=== PATIENT | female | born 1970 | race Native Hawaiian/Other Pacific Islander ===

== ENCOUNTER → 2020-10-10 14:27 | Outpatient (BNVA) | payer MEDICAID, SELFPAY | PROVIDERS: PCP Internal Medicine Geriatric Medicine; Referring Provider Internal Medicine Geriatric Medicine; Visit Provider Hospitalist | DX: Z76.89 Persons encountering health services in other specified circumstances (principal) ==

== ENCOUNTER → 2020-11-14 13:31 | Outpatient (BNVA) | payer MEDICAID, SELFPAY | PROVIDERS: PCP Internal Medicine Geriatric Medicine; Visit Provider Hospitalist | DX: U07.1 COVID-19 (principal); J18.9 Pneumonia, unspecified organism; J45.909 Unspecified asthma, uncomplicated; J39.8 Other specified diseases of upper respiratory tract; J98.09 Other diseases of bronchus, not elsewhere classified | CPT/HCPCS: 99212 ==

== ENCOUNTER → 2020-12-05 12:55 | Outpatient (BNVA) | payer MEDICAID, SELFPAY | PROVIDERS: PCP Internal Medicine Geriatric Medicine; Referring Provider Internal Medicine Geriatric Medicine; Visit Provider Student in an Organized Health Care Education/Training Program | DX: M35.01 Sjogren syndrome with keratoconjunctivitis (principal) | CPT/HCPCS: 99212 ==

== ENCOUNTER 2020-12-06 10:01 | Day surgery (SDC) | payer MEDICAID, SELFPAY ==
[2020-11-30 14:49] VITALS: BMI 28.3
--- NOTE | 2020-12-05 11:57 | HO.ANESPROP2 ---
Documented by User: Elza Ramos 12/05/20 12:03 HPI - Anesthesia Eval Consult details Narrative: 50yo F for Bronchoscopy Fiberoptic 05/2020: bronch with GA Tracheobronchomalacia s/p tracheoplasty in [facility] Past Medical History Medical History Asthma COVID-19 Diabetes Lesion of bronchus Pneumonia Sjogrens syndrome Tracheobronchomalacia Family History Family History Mother Asthma Father Diabetes Surgical History Surgical History History of bronchoscopy History of endometrial ablation Hx of tubal ligation Social History Social History (Updated 12/05/20 @ 13:06 by Shannon Hernandez [facility]) Alcohol intake: never Smoking Status: Former smoker Advance Directives: No Advance Directives Information Provided: No Meds Allergies Allergy/AdvReac Type Severity Reaction Status Date / Time passion fruit [PASSION FRUIT] Allergy Severe ANAPHYLAXIS Verified 12/05/20 13:01 Penicillins [PCN] Allergy Severe ANAPHYLAXIS Verified 12/05/20 13:01 shellfish derived Allergy Severe MOUTH Verified 12/05/20 13:01 [SHELLFISH DERIVED] SWELLING, ITCHY acetaminophen [From TYLENOL] Allergy Mild UNKNOWN Verified 12/05/20 13:01 ibuprofen [IBUPROFEN] Allergy Mild HX ULCERS Verified 12/05/20 13:01 TOLD NOT TO TAKE iodine [IODINE] Allergy Mild ITCHY Verified 12/05/20 13:01 latex [LATEX] Allergy Mild RASH Verified 12/05/20 13:01 lisinopril AdvReac Unknown Unknown Verified 12/06/20 10:24 metformin AdvReac Unknown Unknown Verified 12/06/20 10:24 Home Medications Medication Instructions Recorded Confirmed Type albuterol sulfate 90 mcg/actuation 2 puff INHALATION Q6H PRN 12/05/20 12/05/20 History aerosol inhaler hydroxychloroquine 200 mg tablet 200 mg PO BID 12/05/20 12/05/20 History insulin glargine 100 unit/mL (3 25 unit SUBCUT QAM ml 12/05/20 12/05/20 History mL) subcutaneous pen insulin lispro 100 unit/mL 1 sliding scale dose SUBCUT 12/05/20 12/05/20 History subcutaneous cartridge USEASDIRECTD montelukast 10 mg tablet 10 mg PO DAILY 12/05/20 12/05/20 History Atarax 50 mg PRN 12/06/20 History clonazepam 12/06/20 12/06/20 History Exam Exam Date and Time: December 05, 2020 1157 Height,Weight and Vital Signs: Height 5 ft 5 in Weight 77.111 kg Pertinent Lab Results Pertinent Lab Results: Laboratory Tests 08/03/20 08/03/20 08:55 08:55 WBC 8.0 Hgb 14.1 Hct 44.6 Plt Count 223 Sodium 138 Potassium 3.6 Chloride 103 BUN 9 Creatinine 0.86 Assessment and Plan Assessment Anesthesia Assessment: Chart Reviewed Documented by User: Laura Moreno 12/06/20 10:49 [facility] Past Medical History Medical History Asthma COVID-19 Diabetes Lesion of bronchus Pneumonia Sjogrens syndrome Tracheobronchomalacia Family History Family History Mother Asthma Father Diabetes Surgical History Surgical History History of bronchoscopy History of endometrial ablation Hx of tubal ligation Social History Social History (Updated 12/05/20 @ 13:06 by Shannon Hernandez [facility]) Alcohol intake: never Smoking Status: Former smoker Advance Directives: No Advance Directives Information Provided: No Meds Allergies Allergy/AdvReac Type Severity Reaction Status Date / Time passion fruit [PASSION FRUIT] Allergy Severe ANAPHYLAXIS Verified 12/05/20 13:01 Penicillins [PCN] Allergy Severe ANAPHYLAXIS Verified 12/05/20 13:01 shellfish derived Allergy Severe MOUTH Verified 12/05/20 13:01 [SHELLFISH DERIVED] SWELLING, ITCHY acetaminophen [From TYLENOL] Allergy Mild UNKNOWN Verified 12/05/20 13:01 ibuprofen [IBUPROFEN] Allergy Mild HX ULCERS Verified 12/05/20 13:01 TOLD NOT TO TAKE iodine [IODINE] Allergy Mild ITCHY Verified 12/05/20 13:01 latex [LATEX] Allergy Mild RASH Verified 12/05/20 13:01 lisinopril AdvReac Unknown Unknown Verified 12/06/20 10:24 metformin AdvReac Unknown Unknown Verified 12/06/20 10:24 Home Medications Medication Instructions Recorded Confirmed Type albuterol sulfate 90 mcg/actuation 2 puff INHALATION Q6H PRN 12/05/20 12/05/20 History aerosol inhaler hydroxychloroquine 200 mg tablet 200 mg PO BID 12/05/20 12/05/20 History insulin glargine 100 unit/mL (3 25 unit SUBCUT QAM ml 12/05/20 12/05/20 History mL) subcutaneous pen insulin lispro 100 unit/mL 1 sliding scale dose SUBCUT 12/05/20 12/05/20 History subcutaneous cartridge USEASDIRECTD montelukast 10 mg tablet 10 mg PO DAILY 12/05/20 12/05/20 History Atarax 50 mg PRN 12/06/20 History clonazepam 12/06/20 12/06/20 History Exam Airway Mallampati Class: II TM Dist: >3cm Neck ROM: Full Heart: RRR Lungs: CTA
[2020-12-06] VITALS (7 sets, daily range): BP systolic 123–147; BP diastolic 76–97; PULSE 79–88; RESP 14–20; TEMP 36.6–36.7; O2SAT 99–100
[2020-12-06 11:06] LABS: Glucose, Whole Blood 124 mg/dL (60-115)
[2020-12-06] MEDS: Lactated Ringers 1,000 ML 50 ML IVCONT (11:08)
--- NOTE | 2020-12-06 11:09 | MHC.SHP ---
Pre-Procedural Eval Section B Chief Complaint: upper respiratory tract disease Allergies: Allergies Allergy/AdvReac Type Severity Reaction Status Date / Time passion fruit [PASSION FRUIT] Allergy Severe ANAPHYLAXIS Verified 12/05/20 13:01 Penicillins [PCN] Allergy Severe ANAPHYLAXIS Verified 12/05/20 13:01 shellfish derived Allergy Severe MOUTH Verified 12/05/20 13:01 [SHELLFISH DERIVED] SWELLING, ITCHY acetaminophen [From TYLENOL] Allergy Mild UNKNOWN Verified 12/05/20 13:01 ibuprofen [IBUPROFEN] Allergy Mild HX ULCERS Verified 12/05/20 13:01 TOLD NOT TO TAKE iodine [IODINE] Allergy Mild ITCHY Verified 12/05/20 13:01 latex [LATEX] Allergy Mild RASH Verified 12/05/20 13:01 lisinopril AdvReac Unknown Unknown Verified 12/06/20 10:24 metformin AdvReac Unknown Unknown Verified 12/06/20 10:24 Plan I have reviewed the history and physical and performed a pertinent physical examination on my patient. No changes have occurred unless specified.
--- NOTE | 2020-12-06 11:59 | HO.POSTANES ---
Post Anesthesia Evaluation Post Anesthesia Evaluation Vital Signs: Vital Signs Temp Pulse Resp BP Pulse Ox 12/06/20 11:04 98.1 F 88 16 147/97 H 100 Anesthesia: General Mental Status: Awake Pain Control: Satisfactory Nausea/Vomiting: None Hydration: Adequate Anesthesia-Related Issues: No Anes. Related Issues
[2020-12-06] MEDS: ondansetron HCL 4 MG/2 ML VIAL IVPUSH (12:16)
[2020-12-06] MEDS: oxyCODONE HCl Immed Release 5 MG TABLET PO (12:23)
--- NOTE | 2020-12-06 12:51 | PM.OP ---
Brief Operative Note Date of Service: 12/06/20 Pre-op diagnosis: endobronchial polypoid lesion Post-op diagnosis: same Procedure: Bronchoscpoy with biopsy Surgeon: Hood Edgar MD Anesthesia: GETA Estimated blood loss (mL): 3 Pathology: other (DAREK endobronchial biopsy, RUL BRUSHINGS) Condition: stable Disposition: same day
--- NOTE | 2020-12-07 20:30 | OP_ITS ---
SURGEON: Hood Edgar MD PREOPERATIVE DIAGNOSIS: Endobronchial polypoid lesion. POSTOPERATIVE DIAGNOSIS: Endobronchial polypoid lesion. PROCEDURE PERFORMED: Bronchoscopy with biopsy. ESTIMATED BLOOD LOSS: 3 mL. COMPLICATIONS: ANESTHESIA: General endotracheal anesthesia. ASSISTANTS: None. SPECIMENS: PATHOLOGY: From the left upper lobe, endobronchial biopsy; and right upper lobe brushings. DESCRIPTION OF PROCEDURE: After the patient was adequately sedated, the flexible digital bronchoscope was inserted over the ET tube to the level of the main home. The main home appeared to be well splayed without any evidence of any malacia. The airways were evaluated up to the subsegmental level. In the left upper lobe, we then found a very small polypoid-like lesion, clear in color, has not changed since it was last evaluated several months ago. Using forceps, endobronchial biopsy was done and the whole polypoid area was removed. Minimal bleeding was noted. Iced saline was used with good hemostasis. Did not require any epinephrine. The rest of the airways were normal without any other polypoid lesions on the left side. The bronchoscope was navigated to the right side, where in the right upper lobe, there appeared to be just a slight irregularity of one of the secondary carinas of the right upper lobe, almost as if the cartilage had shifted or became displaced. The area was brushed. No bleeding noted, appears to be just cartilage irregularity. Therefore, opted on not any further biopsies at this time. The bronchoscope was then removed. The total endoscopic time approximately 20 minutes. The patient tolerated the procedure well. Vital signs were stable throughout the procedure. IMPRESSION: 1. Status post endobronchial biopsy of the left upper lobe polypoid lesion. 2. Brushings of the right upper lobe area of abnormal cartilage. No evidence of any tracheobronchomalacia during this bronchoscopy, although the patient had been on positive-pressure. Hood Edgar MD MR/MODL / [id number]
== END 2020-12-06 13:15 | disposition home or self-care (01) ==
PROVIDERS: PCP Internal Medicine Geriatric Medicine; Visit Provider Hospitalist
PROC: 0BJ08ZZ Inspection of Tracheobronchial Tree, Via Natural or Artificial Opening Endoscopic (ICD-10-PCS; CPT 31622; principal; 2020-12-06 11:00)
DX: J39.8 Other specified diseases of upper respiratory tract (principal); J98.09 Other diseases of bronchus, not elsewhere classified; J45.909 Unspecified asthma, uncomplicated; M35.00 Sjogren syndrome, unspecified; E11.9 Type 2 diabetes mellitus without complications; Z87.01 Personal history of pneumonia (recurrent); Z86.16 Personal history of COVID-19; Z87.891 Personal history of nicotine dependence; Z79.4 Long term (current) use of insulin; Z79.899 Other long term (current) drug therapy; Z88.0 Allergy status to penicillin; Z91.040 Latex allergy status
CPT/HCPCS: 31625; 31623; 82947; 87071; 87102; 87116; 87205; 88112; 88305; J0171; J1100; J2250; J2405; J3010

== ENCOUNTER 2020-12-18 09:16 | Outpatient (REF) | payer MEDICAID, SELFPAY ==
--- NOTE | 2020-12-18 09:51 | XR_ITS ---
EXAMINATION: XR CHEST CLINICAL INFORMATION: Asthma COMPARISON: Previous chest x-ray November 2019 TECHNIQUE: 2 views of the chest were obtained. FINDINGS: The cardiac and mediastinal contours are normal. The lungs are clear. There is no pleural effusion or pneumothorax. There is an old right lateral fourth rib fracture. Bony structures are otherwise unremarkable. XR/XR chest 2V IMPRESSION: No evidence for acute disease in the chest.
[2020-12-18 10:06] LABS: MANUAL DIFF FLAG NO
[2020-12-18 10:14] LABS: Glucose Urine UA >=1000 MG/DL (NEG); Leukocyte Esterase Urine NEG (NEG); Nitrite Urine NEG (NEG); PH 5.5 (5.0-8.0); Specific Gravity - Urine >= 1.030 (1.005-1.025); Urine Blood NEG (NEG); Urine Ketones NEG (NEG); Urine Protein NEG (NEG-TRACE)
[2020-12-18 10:15] LABS: Appearance Urine CLEAR; Color Urine YELLOW
[2020-12-18 10:16] LABS: Basophils Absolute Auto 0.1 X10*3/uL (0.0-0.2); Basophils Percent Auto 0.5 % (0-2); Eosinophils Absolute Auto 0.1 X10*3/uL (0.0-0.4); Eosinophils Percent Auto 1.2 % (0-4); Hematocrit 43.6 % (37-47); Hemoglobin 13.2 g/dl (12.0-16.0); Imm Gran Abs Auto 0.06 X10*3/uL (0.00-0.03); Imm Gran Pct Auto 0.6 % (0.0-0.4); Lymphocytes Absolute Auto 4.9 X10*3/uL (1.2-4.9); Lymphocytes Percent Auto 48.4 % (20-40); Mean Corpuscular HGB Conc 30.3 g/dl (31.0-35.0); Mean Corpuscular Hemoglobin 25.1 pg (27.0-33.0); Mean Platelet Volume 10.1 fL (9.4-12.3); Monocytes Absolute Auto 0.7 X10*3/uL (0.1-1.2); Monocytes Percent Auto 6.4 % (2-11); Neutrophils Absolute Auto 4.3 X10*3/uL (2.0-8.3); Neutrophils Percent Auto 42.9 % (45-73); Platelet Count 274 X10*3/uL (160-400); Red Blood Count 5.25 X10*6/uL (4.20-5.50); Red Cell Distribution Width 13.7 % (11.0-16.0); White Blood Count 10.1 X10*3/uL (4.8-10.8)
[2020-12-18 10:20] LABS: Bacteria Urine 1+ /LPF; Calcium Oxalate Crystals Urine 2+ /LPF; Mucus Urine 1+ /LPF; RBC Urine 0 /HPF (0); Squamous Epithelial Cell Urine 3+ /LPF; WBC Urine 0-2 /HPF (0-4)
[2020-12-18 10:21] LABS: Renal w Reflex-LAB USE ONLY Order Verified
[2020-12-18 10:39] LABS: Creatinine Urine 166.99 mg/dL; Microalbum/Creatinine Ratio Ur 5.3 ug/mg cr; Protein/Creatinine Ratio, Ur 0.07 (<0.2); Total Protein Urine Random 12 mg/dL (<12)
[2020-12-18 10:42] LABS: Albumin Level 4.2 g/dL (3.5-5.0); Magnesium 2.2 mg/dL (1.6-2.6); Phosphorus 3.3 mg/dL (2.7-4.5)
[2020-12-18 10:44] LABS: Alanine Aminotransferase 43 U/L (0-31); Albumin Level 4.3 g/dL (3.5-5.0); Alkaline Phosphatase 95 U/L (39-117); Anion Gap 10 (12-20); Aspartate Amino Transferase 20 U/L (5-31); Bilirubin Total 0.9 mg/dL (0.0-1.0); Blood Urea Nitrogen 17 mg/dL (9-16); C Reactive Protein 0.45 mg/dL (< or = 0.50); Calcium 9.6 mg/dL (8.4-10.2); Carbon Dioxide 29 mmol/L (22-29); Chloride 105 mmol/L (96-108); Estimated Glomerular Filt Rate > 60; Glucose Random 114 mg/dL (60-115); Potassium 4.3 mmol/L (3.3-5.1); Sodium 140 mmol/L (135-145); Total Protein 6.7 g/dL (6.5-8.0)
[2020-12-18 10:55] LABS: Vitamin D 25-OH Total 12.3 ng/mL (>30)
[2020-12-18 11:13] LABS: Erythrocyte Sedimentation Rate 4 MM/HR (0-20)
[2020-12-18 13:21] LABS: Renal w Reflex Lab Use Only Order verified
== END 2020-12-18 09:17 | disposition home or self-care (01) ==
LOC: HO.LAB 09:16
PROVIDERS: Absent Provider Student in an Organized Health Care Education/Training Program; PCP Internal Medicine Geriatric Medicine; Referring Provider Hospitalist; Visit Provider Internal Medicine Nephrology
DX: J45.909 Unspecified asthma, uncomplicated (principal); I10 Essential (primary) hypertension; M35.01 Sjogren syndrome with keratoconjunctivitis
CPT/HCPCS: 36415; 71046; 80053; 81001; 82040; 82043; 82306; 83735; 84100; 84156; 85025; 85652; 86140

== ENCOUNTER → 2021-01-04 15:44 | Outpatient (BNVA) | payer MEDICAID, SELFPAY | PROVIDERS: PCP Internal Medicine Geriatric Medicine; Visit Provider Hospitalist ==

== ENCOUNTER → 2021-01-31 10:43 | Outpatient (BNVA) | payer MEDICAID, SELFPAY | PROVIDERS: PCP Internal Medicine Geriatric Medicine; Visit Provider Hospitalist | DX: G47.33 Obstructive sleep apnea (adult) (pediatric) (principal); J39.8 Other specified diseases of upper respiratory tract; J45.40 Moderate persistent asthma, uncomplicated; B94.8 Sequelae of other specified infectious and parasitic diseases; Z79.51 Long term (current) use of inhaled steroids | CPT/HCPCS: 99212 ==

== ENCOUNTER → 2021-03-29 15:32 | Outpatient (BNVA) | payer MEDICAID, SELFPAY | PROVIDERS: PCP Internal Medicine Geriatric Medicine; Visit Provider Hospitalist ==

== ENCOUNTER 2021-04-24 14:09 | Outpatient (REF) | payer MEDICAID, SELFPAY ==
--- NOTE | 2021-04-24 17:48 | PFT_ITS ---
FINDINGS: Forced vital capacity is slightly decreased, FEV1 and [id number] are moderately decreased. Post bronchodilator therapy, no significant improvement. Total lung capacity is moderately decreased. Diffusion capacity also moderately decreased. CONCLUSION: 1. Moderate degree of restrictive pulmonary disorder. 2. Mild obstructive airway disorder. 3. No response to bronchodilators. 4. Clinical correlation recommended. MD EDI Lang/MARIE / [id number]
== END 2021-04-24 14:10 | disposition home or self-care (01) ==
LOC: HO.RESP 14:09
PROVIDERS: PCP Internal Medicine Geriatric Medicine; Visit Provider Hospitalist
DX: J45.40 Moderate persistent asthma, uncomplicated (principal); J39.8 Other specified diseases of upper respiratory tract; R06.00 Dyspnea, unspecified; R07.1 Chest pain on breathing; B94.8 Sequelae of other specified infectious and parasitic diseases; G47.33 Obstructive sleep apnea (adult) (pediatric); J98.4 Other disorders of lung; M35.01 Sjogren syndrome with keratoconjunctivitis; J98.09 Other diseases of bronchus, not elsewhere classified
CPT/HCPCS: 94060; 94727; 94729; 99212

== ENCOUNTER 2021-05-01 14:15 | Outpatient (REF) | payer MEDICAID, SELFPAY ==
--- NOTE | ~2021-05-01 | XR_ITS ---
EXAMINATION: XR CHEST CLINICAL INFORMATION: Cough, chest pain COMPARISON: Chest radiographs 12/18/2020, 12/07/2019 TECHNIQUE: 2 views of the chest were obtained. FINDINGS: Lungs appear clear with no airspace consolidation or air bronchograms. There is no effusion. The costophrenic sulci are clear. The heart is normal in size and the vascularity is normal. The hilar and mediastinal contours and bony structures are unremarkable. XR/XR chest 2V IMPRESSION: Unremarkable examination.
[2021-05-01 15:01] LABS: MANUAL DIFF FLAG NO
[2021-05-01 15:08] LABS: Basophils Percent Auto 0.5 % (0-2); Eosinophils Absolute Auto 0.1 X10*3/uL (0.0-0.4); Eosinophils Percent Auto 1.7 % (0-4); Hemoglobin 11.9 g/dl (12.0-16.0); Imm Gran Abs Auto 0.02 X10*3/uL (0.00-0.03); Imm Gran Pct Auto 0.3 % (0.0-0.4); Lymphocytes Absolute Auto 2.9 X10*3/uL (1.2-4.9); Lymphocytes Percent Auto 49.5 % (20-40); Mean Corpuscular HGB Conc 31.3 g/dl (31.0-35.0); Mean Corpuscular Hemoglobin 24.5 pg (27.0-33.0); Mean Corpuscular Volume 78.4 fL (80-98); Mean Platelet Volume 10.5 fL (9.4-12.3); Monocytes Absolute Auto 0.5 X10*3/uL (0.1-1.2); Monocytes Percent Auto 8.1 % (2-11); Neutrophils Absolute Auto 2.4 X10*3/uL (2.0-8.3); Neutrophils Percent Auto 39.9 % (45-73); Platelet Count 235 X10*3/uL (160-400); Red Blood Count 4.85 X10*6/uL (4.20-5.50); Red Cell Distribution Width 13.2 % (11.0-16.0); White Blood Count 5.9 X10*3/uL (4.8-10.8)
[2021-05-01 15:18] LABS: D Dimer < 200 NG/ML
[2021-05-01 15:34] LABS: Anion Gap 10 (12-20); Blood Urea Nitrogen 10 mg/dL (9-16); Calcium 9.4 mg/dL (8.4-10.2); Carbon Dioxide 26 mmol/L (22-29); Chloride 108 mmol/L (96-108); Estimated Glomerular Filt Rate > 60; Glucose Random 96 mg/dL (60-115); Potassium 4.4 mmol/L (3.3-5.1); Sodium 140 mmol/L (135-145)
[2021-05-01 15:54] LABS: Erythrocyte Sedimentation Rate 7 MM/HR (0-20)
[2021-05-05 03:37] LABS: Immunoglobulin E 74 kU/L (<OR=114)
== END 2021-05-01 14:16 | disposition home or self-care (01) ==
LOC: HO.LAB 14:15
PROVIDERS: Absent Provider Internal Medicine Geriatric Medicine; PCP Internal Medicine Geriatric Medicine; Visit Provider Hospitalist
DX: R07.9 Chest pain, unspecified (principal); J18.9 Pneumonia, unspecified organism; E11.65 Type 2 diabetes mellitus with hyperglycemia; R05 Cough
CPT/HCPCS: 36415; 71046; 80048; 82785; 85025; 85379; 85652

== ENCOUNTER 2021-08-01 10:41 | Outpatient (REF) | payer MEDICAID, SELFPAY ==
--- NOTE | ~2021-08-01 | XR_ITS ---
EXAMINATION: XR CHEST CLINICAL INFORMATION: Chest pain with breathing. COMPARISON: Chest radiograph dated 05/01/2021. TECHNIQUE: 2 views of the chest were obtained. FINDINGS: The lungs are clear. The cardiomediastinal silhouette is normal in size. There is no pleural effusion or pneumothorax. No acute osseous abnormality. XR/XR chest 2V IMPRESSION: No acute cardiopulmonary findings.
== END 2021-08-01 10:42 | disposition home or self-care (01) ==
LOC: HO.XRAY 10:41
PROVIDERS: PCP Internal Medicine Geriatric Medicine; Visit Provider Hospitalist
DX: R07.1 Chest pain on breathing (principal); J05.0 Acute obstructive laryngitis [croup]
CPT/HCPCS: 71046

== ENCOUNTER → 2021-08-08 10:16 | Outpatient (BNVA) | payer MEDICAID, SELFPAY | PROVIDERS: PCP Internal Medicine Geriatric Medicine; Visit Provider Hospitalist | DX: J98.4 Other disorders of lung (principal); J98.09 Other diseases of bronchus, not elsewhere classified; J39.8 Other specified diseases of upper respiratory tract; J04.2 Acute laryngotracheitis; R07.1 Chest pain on breathing; B94.8 Sequelae of other specified infectious and parasitic diseases; G47.33 Obstructive sleep apnea (adult) (pediatric); M35.01 Sjogren syndrome with keratoconjunctivitis | CPT/HCPCS: 99212 ==

== ENCOUNTER → 2021-09-25 13:07 | Outpatient (BNVA) | payer MEDICAID, SELFPAY | PROVIDERS: PCP Internal Medicine Geriatric Medicine; Visit Provider Hospitalist | DX: J45.41 Moderate persistent asthma with (acute) exacerbation (principal); J98.4 Other disorders of lung; J39.8 Other specified diseases of upper respiratory tract; G47.33 Obstructive sleep apnea (adult) (pediatric); M35.01 Sjogren syndrome with keratoconjunctivitis; B94.8 Sequelae of other specified infectious and parasitic diseases; R07.1 Chest pain on breathing | CPT/HCPCS: 99212 ==

== ENCOUNTER 2021-10-08 13:19 | Outpatient (REF) | payer MEDICAID, SELFPAY ==
[2021-10-08 13:58] LABS: MANUAL DIFF FLAG NO
[2021-10-08 14:15] LABS: Basophils Percent Auto 0.5 % (0-2); Eosinophils Absolute Auto 0.1 X10*3/uL (0.0-0.4); Eosinophils Percent Auto 1.4 % (0-4); Hematocrit 43.7 % (37.0-47.0); Hemoglobin 13.5 g/dl (12.0-16.0); Imm Gran Abs Auto 0.02 X10*3/uL (0.00-0.03); Imm Gran Pct Auto 0.3 % (0.0-0.4); Lymphocytes Absolute Auto 2.2 X10*3/uL (1.2-4.9); Lymphocytes Percent Auto 28.6 % (20-40); Mean Corpuscular HGB Conc 30.9 g/dl (31.0-35.0); Mean Corpuscular Volume 81.1 fL (80.0-98.0); Mean Platelet Volume 11.4 fL (9.4-12.3); Monocytes Absolute Auto 0.5 X10*3/uL (0.1-1.2); Monocytes Percent Auto 6.7 % (2-11); Neutrophils Absolute Auto 4.8 x10*3/uL (2.0-8.3); Neutrophils Percent Auto 62.5 % (45-73); Platelet Count 204 X10*3/uL (160-400); Red Blood Count 5.39 X10*6/uL (4.20-5.50); Red Cell Distribution Width 12.6 % (11.0-16.0); White Blood Count 7.7 X10*3/uL (4.8-10.8)
[2021-10-08 14:54] LABS: Erythrocyte Sedimentation Rate 5 MM/HR (0-20)
[2021-10-14 17:06] LABS: Asperg fumigatus Precip Abs NEGATIVE (NEGATIVE); Micropoly faeni Abs NEGATIVE (NEGATIVE); Pigeon serum Abs NEGATIVE (NEGATIVE); Saccharo pora viridis Abs NEGATIVE (NEGATIVE); Thermo candidus Abs NEGATIVE (NEGATIVE); Thermoa vulgaris #1 NEGATIVE (NEGATIVE)
== END 2021-10-08 13:20 | disposition home or self-care (01) ==
LOC: HO.LAB 13:19
PROVIDERS: PCP Internal Medicine Geriatric Medicine; Visit Provider Hospitalist
DX: J45.41 Moderate persistent asthma with (acute) exacerbation (principal); R91.8 Other nonspecific abnormal finding of lung field
CPT/HCPCS: 36415; 82785; 85025; 85652; 86003; 86331; 86606; 86609

== ENCOUNTER → 2021-11-21 10:56 | Outpatient (BNVA) | payer MEDICAID, SELFPAY | PROVIDERS: PCP Internal Medicine Geriatric Medicine; Visit Provider Hospitalist | DX: J45.50 Severe persistent asthma, uncomplicated (principal); J98.4 Other disorders of lung; G47.33 Obstructive sleep apnea (adult) (pediatric); J39.8 Other specified diseases of upper respiratory tract; S22.39XD Fracture of one rib, unspecified side, subsequent encounter for fracture with routine healing; R07.1 Chest pain on breathing; M35.01 Sjogren syndrome with keratoconjunctivitis; B94.8 Sequelae of other specified infectious and parasitic diseases | CPT/HCPCS: 99212 ==

== ENCOUNTER 2021-11-29 09:54 | Outpatient (REF) | payer MEDICAID, SELFPAY ==
--- NOTE | ~2021-11-29 | XR_ITS ---
EXAMINATION: XR CHEST CLINICAL INFORMATION: Chest pain on breathing COMPARISON: None TECHNIQUE: 2 views of the chest were obtained. FINDINGS: No significant abnormality is noted involving the heart, lungs, mediastinum, bony thorax or soft tissues. XR/XR chest 2V IMPRESSION: Unremarkable chest examination.
[2021-11-29 10:12] LABS: MANUAL DIFF FLAG NO
[2021-11-29 11:25] LABS: Basophils Absolute Auto 0.1 X10*3/uL (0.0-0.2); Basophils Percent Auto 0.7 % (0-2); Eosinophils Absolute Auto 0.2 X10*3/uL (0.0-0.4); Eosinophils Percent Auto 3.1 % (0-4); Hemoglobin 12.7 g/dl (12.0-16.0); Imm Gran Abs Auto 0.01 X10*3/uL (0.00-0.03); Imm Gran Pct Auto 0.1 % (0.0-0.4); Lymphocytes Absolute Auto 3.3 X10*3/uL (1.2-4.9); Lymphocytes Percent Auto 47.3 % (20-40); Mean Corpuscular Hemoglobin 25.1 pg (27.0-33.0); Mean Platelet Volume 11.4 fL (9.4-12.3); Monocytes Absolute Auto 0.4 X10*3/uL (0.1-1.2); Monocytes Percent Auto 6.4 % (2-11); Neutrophils Absolute Auto 2.9 x10*3/uL (2.0-8.3); Neutrophils Percent Auto 42.4 % (45-73); Platelet Count 233 X10*3/uL (160-400); Red Blood Count 5.06 X10*6/uL (4.20-5.50); Red Cell Distribution Width 12.5 % (11.0-16.0); White Blood Count 6.9 X10*3/uL (4.8-10.8)
[2021-11-29 11:35] LABS: D Dimer High Sensitivity < 150 NG/ML
[2021-11-29 11:44] LABS: Troponin-I High Sensitivity 3.6 ng/L (<3.5-17.0)
[2021-11-29 11:51] LABS: Anion Gap 13 (12-20); Blood Urea Nitrogen 13 mg/dL (9-16); Calcium 9.6 mg/dL (8.4-10.2); Carbon Dioxide 24 mmol/L (22-29); Chloride 105 mmol/L (96-108); Estimated Glomerular Filt Rate > 60; Glucose Random 213 mg/dL (60-115); Potassium 4.3 mmol/L (3.3-5.1); Sodium 138 mmol/L (135-145)
[2021-11-29 12:15] LABS: Erythrocyte Sedimentation Rate 5 MM/HR (0-20)
[2021-12-01 02:57] LABS: Immunoglobulin E 172 kU/L (<OR=114)
== END 2021-11-29 09:55 | disposition home or self-care (01) ==
LOC: HO.XRAY 09:54
PROVIDERS: PCP Internal Medicine Geriatric Medicine; Visit Provider Hospitalist
DX: R07.1 Chest pain on breathing (principal)
CPT/HCPCS: 36415; 71046; 80048; 82785; 84484; 85025; 85379; 85652

== ENCOUNTER → 2021-12-14 13:48 | Outpatient (BNVA) | payer MEDICAID, SELFPAY | PROVIDERS: PCP Internal Medicine Geriatric Medicine; Visit Provider Hospitalist | DX: J45.50 Severe persistent asthma, uncomplicated (principal); J98.4 Other disorders of lung; J39.8 Other specified diseases of upper respiratory tract; R07.1 Chest pain on breathing; G47.33 Obstructive sleep apnea (adult) (pediatric); M35.01 Sjogren syndrome with keratoconjunctivitis; B94.8 Sequelae of other specified infectious and parasitic diseases; S22.39XD Fracture of one rib, unspecified side, subsequent encounter for fracture with routine healing | CPT/HCPCS: 99212 ==

== ENCOUNTER 2021-12-25 13:20 | Outpatient (REF) | payer MEDICAID, SELFPAY ==
[2021-12-26 08:13] LABS: Glucose, Whole Blood 201 mg/dL (60-115)
[2021-12-26 08:13] LABS: Glucose, Whole Blood 195 mg/dL (60-115)
== END 2021-12-25 13:21 | disposition home or self-care (01) ==
LOC: HO.MDS 13:20
PROVIDERS: Visit Provider Internal Medicine Pulmonary Disease
DX: J45.50 Severe persistent asthma, uncomplicated (principal)
CPT/HCPCS: 82947; 96372; J2357

== ENCOUNTER 2021-12-27 07:03 | Day surgery (SDC) | payer MEDICAID, SELFPAY ==
--- NOTE | 2021-12-26 09:15 | P.CONAN_ITS ---
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) CJ (obstructive sleep apnea) (Acute) CJ on CPAP (Acute) Sjogrens syndrome (Acute) Lesion of bronchus (Acute) Pneumonia (Acute) Asthma (Acute) Tracheobronchomalacia (Acute) COVID-19 (Acute) Past Medical History Medical History Asthma Chronic restrictive lung disease Cough COVID-19 Diabetes Lesion of bronchus CJ (obstructive sleep apnea) CJ on CPAP Pneumonia 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 Rib fracture Rib fracture Sjogrens syndrome Tracheobronchomalacia Family History Family History Mother Asthma Father Diabetes Surgical History Surgical History History of bronchoscopy History of endometrial ablation Hx of tubal ligation Social History Social History (Updated 04/24/21 @ 15:04 by EMELIA Burton) Household Members: Spouse and Children Alcohol intake: never Patient Tobacco Use Status: Former Tobacco user Tobacco use type: Cigarette Years Smoked: 2-3 yrs Second Hand Smoke Exposure: No Meds Allergies Allergy/AdvReac Type Severity Reaction Status Date / Time latex [LATEX] Allergy Severe RASH Verified 12/27/21 07:40 passion fruit [PASSION FRUIT] Allergy Severe ANAPHYLAXIS Verified 12/14/21 13:58 Penicillins [PCN] Allergy Severe ANAPHYLAXIS Verified 12/14/21 13:58 shellfish derived Allergy Severe MOUTH Verified 12/14/21 13:58 [SHELLFISH DERIVED] SWELLING, ITCHY acetaminophen [From TYLENOL] Allergy Mild UNKNOWN Verified 12/14/21 13:58 ibuprofen [IBUPROFEN] Allergy Mild HX ULCERS Verified 12/14/21 13:58 TOLD NOT TO TAKE iodine [IODINE] Allergy Mild ITCHY Verified 12/14/21 13:58 lisinopril AdvReac Severe Rash Verified 12/14/21 13:58 metformin AdvReac Severe Rash Verified 12/14/21 13:58 Home Medications Medication Instructions Recorded Confirmed Last Taken Type albuterol sulfate 90 mcg/actuation 2 puff INHALATION Q6H PRN 12/05/20 04/24/21 Unknown History aerosol inhaler hydroxychloroquine 200 mg tablet 200 mg PO BID 12/05/20 04/24/21 12/06/20 07:00 History (Plaquenil) insulin glargine 100 unit/mL (3 25 unit SUBCUT QAM ml 12/05/20 04/24/21 Unknown History mL) subcutaneous pen (Lantus Solostar U-100 Insulin) insulin lispro 100 unit/mL 1 sliding scale dose SUBCUT 12/05/20 04/24/21 Unknown History subcutaneous cartridge (Humalog USEASDIRECTD U-100 Insulin) Atarax 50 mg PRN 12/06/20 04/24/21 12/06/20 07:00 History clonazepam 12/06/20 04/24/21 12/06/20 07:00 History Exam Exam Date and Time: December 26, [id number] Pertinent Lab Results Pertinent Lab Results: Laboratory Tests 11/29/21 11/29/21 10:08 10:08 WBC 6.9 Hgb 12.7 Hct 41.0 Plt Count 233 Sodium 138 Potassium 4.3 Chloride 105 Carbon Dioxide 24 BUN 13 Creatinine 0.89 Assessment and Plan Assessment Anesthesia Assessment: Chart Reviewed Documented by User: Jono Tucker 12/27/21 15:00 [facility] Past Medical History Medical History Asthma Chronic restrictive lung disease Cough COVID-19 Diabetes Lesion of bronchus CJ (obstructive sleep apnea) CJ on CPAP Pneumonia 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 Rib fracture Rib fracture Sjogrens syndrome Tracheobronchomalacia Family History Family History Mother Asthma Father Diabetes Family history of problems with anesthesia: No Surgical History Surgical History History of bronchoscopy History of endometrial ablation Hx of tubal ligation History of Problems with Anesthesia: No Social History Social History (Updated 04/24/21 @ 15:04 by EMELIA Burton) Household Members: Spouse and Children Alcohol intake: never Patient Tobacco Use Status: Former Tobacco user Tobacco use type: Cigarette Years Smoked: 2-3 yrs Second Hand Smoke Exposure: No Meds Allergies Allergy/AdvReac Type Severity Reaction Status Date / Time latex [LATEX] Allergy Severe RASH Verified 12/27/21 07:40 passion fruit [PASSION FRUIT] Allergy Severe ANAPHYLAXIS Verified 12/14/21 13:58 Penicillins [PCN] Allergy Severe ANAPHYLAXIS Verified 12/14/21 13:58 shellfish derived Allergy Severe MOUTH Verified 12/14/21 13:58 [SHELLFISH DERIVED] SWELLING, ITCHY acetaminophen [From TYLENOL] Allergy Mild UNKNOWN Verified 12/14/21 13:58 ibuprofen [IBUPROFEN] Allergy Mild HX ULCERS Verified 12/14/21 13:58 TOLD NOT TO TAKE iodine [IODINE] Allergy Mild ITCHY Verified 12/14/21 13:58 lisinopril AdvReac Severe Rash Verified 12/14/21 13:58 metformin AdvReac Severe Rash Verified 12/14/21 13:58 Home Medications Medication Instructions Recorded Confirmed Last Taken Type albuterol sulfate 90 mcg/actuation 2 puff INHALATION Q6H PRN 12/05/20 04/24/21 Unknown History aerosol inhaler hydroxychloroquine 200 mg tablet 200 mg PO BID 12/05/20 04/24/21 12/06/20 07:00 History (Plaquenil) insulin glargine 100 unit/mL (3 25 unit SUBCUT QAM ml 12/05/20 04/24/21 Unknown History mL) subcutaneous pen (Lantus Solostar U-100 Insulin) insulin lispro 100 unit/mL 1 sliding scale dose SUBCUT 12/05/20 04/24/21 Unknown History subcutaneous cartridge (Humalog USEASDIRECTD U-100 Insulin) Atarax 50 mg PRN 12/06/20 04/24/21 12/06/20 07:00 History clonazepam 12/06/20 04/24/21 12/06/20 07:00 History Exam Airway Mallampati Class: III TM Dist: >3cm Neck ROM: Full Loose/Missing/Broken Teeth: Yes (Fillings ) Heart: rrr Lungs: bl breath sounds Assessment and Plan Assessment Anesthesia Assessment: Anesthesia Plan Discussed Final Anesthetic Review Family History of Problems with Anesthesia: No History of Problems with Anesthesia: No NPO: Yes ASA Class: III Final Preanesthetic Review: Meds/Allgs Chart Reviewed, Consent Obtained/Reviewed and Anes Risks/Benef Reviewed Patient Risk: Intermediate Procedure Risk: Intermediate Anesthetic Plan Anesthetic Plan: GA Disposition: Standard PACU
[2021-12-27] VITALS (9 sets, daily range): BP systolic 142–165; BP diastolic 90–105; PULSE 65–78; RESP 16–18; TEMP 36.1–36.5; O2SAT 98–100; BMI 31.1
[2021-12-27 07:16] LABS: Glucose, Whole Blood 94 mg/dL (60-115)
[2021-12-27] MEDS: Lactated Ringers 1,000 ML 100 ML IVCONT (07:43)
--- NOTE | 2021-12-27 08:17 | MHC.SHP ---
Pre-Procedural Eval Section A Date of Service: 12/27/21 The patient is an INPATIENT: No Changes since office visit: No Cold of Flu in the past 2 weeks, No New Medical Problems, No Changes in Medication and No Patient answered all questions The History & Physical has been completed within 30 days and I have reviewed it.: Yes Section B Chief Complaint: respiratory tract disease Allergies: Allergies Allergy/AdvReac Type Severity Reaction Status Date / Time latex [LATEX] Allergy Severe RASH Verified 12/27/21 07:40 passion fruit [PASSION FRUIT] Allergy Severe ANAPHYLAXIS Verified 12/14/21 13:58 Penicillins [PCN] Allergy Severe ANAPHYLAXIS Verified 12/14/21 13:58 shellfish derived Allergy Severe MOUTH Verified 12/14/21 13:58 [SHELLFISH DERIVED] SWELLING, ITCHY acetaminophen [From TYLENOL] Allergy Mild UNKNOWN Verified 12/14/21 13:58 ibuprofen [IBUPROFEN] Allergy Mild HX ULCERS Verified 12/14/21 13:58 TOLD NOT TO TAKE iodine [IODINE] Allergy Mild ITCHY Verified 12/14/21 13:58 lisinopril AdvReac Severe Rash Verified 12/14/21 13:58 metformin AdvReac Severe Rash Verified 12/14/21 13:58 Plan I have reviewed the history and physical and performed a pertinent physical examination on my patient. No changes have occurred unless specified.
[2021-12-27] MEDS: oxyCODONE HCl Immed Release 5 MG TABLET 10 MG PO (11:23)
--- NOTE | 2021-12-27 13:39 | PM.OP ---
Brief Operative Note Date of Service: 12/27/21 Pre-op diagnosis: TBM, asthma, chest pain Post-op diagnosis: other (endobronchial lesion, bronchitis, UDAY bronchomalecia) Procedure: Bronchoscopy with biopsies, washings and brushings Implants: Surgeon: Hood Edgar MD Anesthesia: GLMA Was an Consulting Solution Manager used for this Procedure?: No Estimated blood loss (mL): 0 Condition: stable Disposition: same day
--- NOTE | 2021-12-27 23:32 | OP_ITS ---
SURGEON: Hood Edgar MD PREOPERATIVE DIAGNOSIS: POSTOPERATIVE DIAGNOSIS: PROCEDURE PERFORMED: Bronchoscopy. ESTIMATED BLOOD LOSS: COMPLICATIONS: ANESTHESIA: LMA. ASSISTANTS: SPECIMENS: PREOPERATIVE DIAGNOSES: Tracheomalacia, bronchitis, and asthma. POSTOPERATIVE DIAGNOSES: Endobronchial lesion, bronchus intermedius, irregular appearance of the anterior segment of the right upper lobe, bronchitis, right mainstem bronchomalacia. No evidence of any tracheomalacia. ASA CLASSIFICATION: 3. DESCRIPTION OF PROCEDURE: After the patient is adequately sedated, LMA in place, the flexible digital bronchoscope was inserted to the level of the larynx. The vocal cords were initially symmetrical, but they did close symmetrically. No lesions noted. There was some slight thickening of the epiglottis, could be secondary to coughing and reflux related issues. After instilling additional lidocaine, the bronchoscope was then passed through vocal cords to the level of the trachea. The tracheal mucosa appeared normal, had some slight flattening of the anterior part of the trachea, but stayed patent even during coughing episodes. After instilling additional lidocaine, the bronchoscope was then navigated to the entire tracheobronchial tree. The patient did have some mucoid secretions primarily in the trachea and also more in the left-sided airways. In addition to that, the patient again had a very abnormal anterior segment, right upper lobe segment where the home appeared to be split. She has had this before and previous bronchoscopies. It could just be chondroma that developed in that area. In addition to that, there was a small plaque-like area that appeared to be whitish with some neovascularization primarily in the bronchus intermedius. That area became very friable just with touching it, resulting in some bleeding around it. Using forceps, endobronchial biopsy was collected from the right upper lobe anterior segment. Specimens were sent in formalin. The bronchoscope was navigated to the bronchus intermedius. Using forceps that plaque-like white mucosal area was removed and placed in formalin to be analyzed. Also to note, the polypoid lesion she had in the left upper lobe area was no longer present. The bronchoscope was navigated to the distal left mainstem bronchus. A microbiology brush was introduced both into the left upper lobe and left lower lobe and sent for microbiology. Bronchial washings were collected bilaterally. The patient again has more mucus secretions primarily from the left lung, left upper lobe primarily. Areas were washed clear and suction and specimen sent for both cytology and microbiology. Aspirate request for mycoplasma PCR was sent from the washings. The patient tolerated the procedure well. No evidence of any bleeding. Reached good hemostasis. At the end of the procedure, she was waking up and coughing. We assessed the airways. She did have some degree of central bronchomalacia of the right mainstem bronchus obstructing about 80-90%. Even the distal trachea appeared to be patent staying open more than 50% and the rest of the trachea also appeared to be patent greater than 70%. The patient tolerated the procedure well. Vital signs were stable throughout the procedure. Total endoscopic time approximately 20 minutes. INTERPRETATION: 1. No evidence of any tracheomalacia even while coughing. 2. Evidence of right mainstem bronchomalacia. 3. Endobronchial lesion of the bronchus intermedius appeared to be likely an area of metaplasia with some friability, status post endobronchial forceps biopsy and removal. 4. Endobronchial biopsy of the anterior segment of the right upper lobe where appears to have either chondroma or abnormality of the home. 5. Bronchial washings bilaterally both for cytology, microbiology including mycoplasma PCR. 6. Microscopic brushings from the left upper and left lower lung for microbiology. MD NED Patel/MARIE / [id number]
[2021-12-31 12:45] LABS: Other Ref Test - Misc SEE COMMENTS
== END 2021-12-27 12:30 | disposition home or self-care (01) ==
PROVIDERS: PCP Internal Medicine Geriatric Medicine; Visit Provider Hospitalist
PROC: 0BJ08ZZ Inspection of Tracheobronchial Tree, Via Natural or Artificial Opening Endoscopic (ICD-10-PCS; CPT 31622; principal; 2021-12-27 08:30)
DX: J39.8 Other specified diseases of upper respiratory tract (principal); J98.4 Other disorders of lung; J45.50 Severe persistent asthma, uncomplicated; R07.1 Chest pain on breathing; R53.83 Other fatigue; U09.9 Post COVID-19 condition, unspecified; B94.8 Sequelae of other specified infectious and parasitic diseases; E55.9 Vitamin D deficiency, unspecified; G47.33 Obstructive sleep apnea (adult) (pediatric); M35.01 Sjogren syndrome with keratoconjunctivitis; E11.9 Type 2 diabetes mellitus without complications; S22.39XA Fracture of one rib, unspecified side, initial encounter for closed fracture; X58.XXXA Exposure to other specified factors, initial encounter; Y93.9 Activity, unspecified; Y92.9 Unspecified place or not applicable; Y99.8 Other external cause status; Z79.4 Long term (current) use of insulin; Z79.51 Long term (current) use of inhaled steroids; Z79.899 Other long term (current) drug therapy; Z99.89 Dependence on other enabling machines and devices; Z88.0 Allergy status to penicillin; Z88.8 Allergy status to other drugs, medicaments and biological substances; Z91.040 Latex allergy status; Z87.891 Personal history of nicotine dependence
CPT/HCPCS: 31625; 31623; 82947; 87071; 87116; 87205; 87581; 88112; 88305; J0171; J1100; J2250; J2405; J3010

== ENCOUNTER → 2022-01-14 15:00 | Outpatient (BNVA) | payer MEDICAID, SELFPAY | PROVIDERS: PCP Internal Medicine Geriatric Medicine; Visit Provider Hospitalist ==

== ENCOUNTER 2022-01-29 11:17 | Outpatient (REF) | payer MEDICAID, SELFPAY | END 2022-01-29 11:18 | disposition home or self-care (01) | LOC: HO.MDS 11:17 | PROVIDERS: Visit Provider Hospitalist | DX: J45.50 Severe persistent asthma, uncomplicated (principal) | CPT/HCPCS: 96372; 99212; J2357 ==

== ENCOUNTER 2022-02-12 12:28 | Outpatient (REF) | payer MEDICAID, SELFPAY ==
--- NOTE | ~2022-02-12 | XR_ITS ---
EXAMINATION: XR TEMPOROMANDIBULAR JOINT, BILATERAL CLINICAL INFORMATION: Arthralgia of the temporomandibular joints. COMPARISON: None TECHNIQUE: 5 views of the temporomandibular joints. FINDINGS: The temporomandibular joints are normal-appearing. No fracture or dislocation or erosive changes are seen. XR/XR TMJ BI IMPRESSION: Unremarkable examination.
== END 2022-02-12 12:29 | disposition home or self-care (01) ==
LOC: HO.XRAY 12:28
PROVIDERS: PCP Internal Medicine Geriatric Medicine; Visit Provider Internal Medicine Geriatric Medicine
DX: M26.623 Arthralgia of bilateral temporomandibular joint (principal)
CPT/HCPCS: 70330

== ENCOUNTER 2022-03-14 10:39 | Outpatient (REF) | payer MEDICAID, SELFPAY | END 2022-03-14 10:40 | disposition home or self-care (01) | LOC: HO.MDS 10:39 | PROVIDERS: Visit Provider Hospitalist | DX: J45.50 Severe persistent asthma, uncomplicated (principal) | CPT/HCPCS: 96372; J2357 ==

== ENCOUNTER 2022-04-12 10:12 | Outpatient (REF) | payer MEDICAID, SELFPAY ==
--- NOTE | ~2022-04-12 | XR_ITS ---
EXAMINATION: XR CHEST CLINICAL INFORMATION: Chest pain. COMPARISON: Chest 11/29/2021 TECHNIQUE: 2 views of the chest were obtained. FINDINGS: The lungs are well-expanded and clear. The heart size and pulmonary vascularity is normal. No gross bony abnormality seen. XR/XR chest 2V IMPRESSION: Unremarkable chest examination.
== END 2022-04-12 10:13 | disposition home or self-care (01) ==
LOC: HO.XRAY 10:12
PROVIDERS: PCP Internal Medicine Geriatric Medicine; Visit Provider Hospitalist
DX: R07.9 Chest pain, unspecified (principal)
CPT/HCPCS: 71046; 96372

== ENCOUNTER 2022-04-12 14:23 | Outpatient (REF) | payer MEDICAID, SELFPAY | END 2022-04-12 14:24 | disposition home or self-care (01) | LOC: HO.MDS 14:23 | PROVIDERS: Visit Provider Hospitalist | DX: J45.50 Severe persistent asthma, uncomplicated (principal); J98.4 Other disorders of lung; R07.1 Chest pain on breathing; G47.33 Obstructive sleep apnea (adult) (pediatric); M35.00 Sjogren syndrome, unspecified; J39.8 Other specified diseases of upper respiratory tract; R13.11 Dysphagia, oral phase; J04.0 Acute laryngitis; E11.9 Type 2 diabetes mellitus without complications; Z87.891 Personal history of nicotine dependence; Z91.040 Latex allergy status; Z88.0 Allergy status to penicillin; Z91.013 Allergy to seafood; Z88.8 Allergy status to other drugs, medicaments and biological substances; Z91.018 Allergy to other foods; Z99.89 Dependence on other enabling machines and devices; Z79.899 Other long term (current) drug therapy | CPT/HCPCS: 99212; J2357 ==

== ENCOUNTER 2022-05-10 11:19 | Outpatient (REF) | payer MEDICAID, SELFPAY | END 2022-05-10 11:20 | disposition home or self-care (01) | LOC: HO.MDS 11:19 | PROVIDERS: Visit Provider Hospitalist | DX: J45.50 Severe persistent asthma, uncomplicated (principal) | CPT/HCPCS: 96372; J2357 ==

== ENCOUNTER 2022-07-02 10:45 | Outpatient (REF) | payer MEDICAID, SELFPAY | END 2022-07-02 10:46 | disposition home or self-care (01) | LOC: HO.MDS 10:45 | PROVIDERS: Visit Provider Hospitalist | DX: J45.50 Severe persistent asthma, uncomplicated (principal) | CPT/HCPCS: 96372; 99212; J2357 ==

== ENCOUNTER 2022-08-06 11:52 | Outpatient (REF) | payer MEDICAID, SELFPAY | END 2022-08-06 11:53 | disposition home or self-care (01) | LOC: HO.MDS 11:52 | PROVIDERS: Visit Provider Hospitalist | DX: J45.50 Severe persistent asthma, uncomplicated (principal) | CPT/HCPCS: 96372; J2357 ==

== ENCOUNTER 2022-09-30 12:11 | Outpatient (REF) | payer MEDICAID, SELFPAY | END 2022-09-30 12:12 | disposition home or self-care (01) | LOC: HO.MDS 12:11 | PROVIDERS: Visit Provider Hospitalist | DX: J45.50 Severe persistent asthma, uncomplicated (principal) | CPT/HCPCS: 96372; 99212; J2357 ==

== ENCOUNTER 2022-11-13 13:48 | Outpatient (REF) | payer MEDICAID, SELFPAY | END 2022-11-13 13:49 | disposition home or self-care (01) | LOC: HO.MDS 13:48 | PROVIDERS: Visit Provider Hospitalist | DX: J45.50 Severe persistent asthma, uncomplicated (principal) | CPT/HCPCS: 96372; J2357 ==

== ENCOUNTER → 2022-12-06 11:17 | Outpatient (BNVA) | payer MEDICAID, SELFPAY | PROVIDERS: PCP Internal Medicine Geriatric Medicine; Visit Provider Hospitalist | DX: J45.51 Severe persistent asthma with (acute) exacerbation (principal); J98.4 Other disorders of lung; J39.8 Other specified diseases of upper respiratory tract; R07.1 Chest pain on breathing; G47.33 Obstructive sleep apnea (adult) (pediatric); M35.01 Sjogren syndrome with keratoconjunctivitis | CPT/HCPCS: 99212 ==

== ENCOUNTER 2022-12-11 13:14 | Outpatient (REF) | payer MEDICAID, SELFPAY | END 2022-12-11 13:15 | disposition home or self-care (01) | LOC: HO.MDS 13:14 | PROVIDERS: Visit Provider Hospitalist | DX: J45.50 Severe persistent asthma, uncomplicated (principal) | CPT/HCPCS: 96372; J2357 ==

== ENCOUNTER 2023-01-20 09:50 | Outpatient (REF) | payer MEDICAID, SELFPAY | END 2023-01-20 09:51 | disposition home or self-care (01) | LOC: HO.MDS 09:50 | PROVIDERS: Visit Provider Hospitalist | DX: J45.50 Severe persistent asthma, uncomplicated (principal) | CPT/HCPCS: 96372; J2357 ==

== ENCOUNTER → 2023-01-29 10:50 | Outpatient (BNVA) | payer MEDICAID, SELFPAY | PROVIDERS: PCP Internal Medicine Geriatric Medicine; Visit Provider Hospitalist | DX: J45.51 Severe persistent asthma with (acute) exacerbation (principal); J98.4 Other disorders of lung; J39.8 Other specified diseases of upper respiratory tract; R07.9 Chest pain, unspecified; G47.33 Obstructive sleep apnea (adult) (pediatric); M35.01 Sjogren syndrome with keratoconjunctivitis | CPT/HCPCS: 94618; 94640; 96372; 99212; 99213; J2930 ==

== ENCOUNTER 2023-02-20 11:59 | Outpatient (REF) | payer MEDICAID, SELFPAY | END 2023-02-20 12:00 | disposition home or self-care (01) | LOC: HO.MDS 11:59 | PROVIDERS: Visit Provider Hospitalist | DX: J45.50 Severe persistent asthma, uncomplicated (principal) | CPT/HCPCS: 96372; J2357 ==

== ENCOUNTER → 2023-02-27 09:55 | Outpatient (BNVA) | payer MEDICAID, SELFPAY | PROVIDERS: PCP Internal Medicine Geriatric Medicine; Visit Provider Hospitalist | DX: J45.51 Severe persistent asthma with (acute) exacerbation (principal); J98.4 Other disorders of lung; R07.1 Chest pain on breathing; G47.33 Obstructive sleep apnea (adult) (pediatric); M35.01 Sjogren syndrome with keratoconjunctivitis; J39.8 Other specified diseases of upper respiratory tract; Z79.899 Other long term (current) drug therapy | CPT/HCPCS: 99212 ==

== ENCOUNTER 2023-03-26 13:35 | Outpatient (REF) | payer MEDICAID, SELFPAY | END 2023-03-26 13:36 | disposition home or self-care (01) | LOC: HO.MDS 13:35 | PROVIDERS: Visit Provider Hospitalist | DX: J45.50 Severe persistent asthma, uncomplicated (principal) | CPT/HCPCS: 96372; J2357 ==

== ENCOUNTER 2023-04-23 11:51 | Outpatient (REF) | payer MEDICAID, SELFPAY | END 2023-04-23 11:52 | disposition home or self-care (01) | LOC: HO.MDS 11:51 | PROVIDERS: Visit Provider Hospitalist | DX: J45.50 Severe persistent asthma, uncomplicated (principal) | CPT/HCPCS: 96372; J2357 ==

== ENCOUNTER → 2023-05-12 14:06 | Outpatient (BNVA) | payer MEDICAID, SELFPAY | PROVIDERS: PCP Internal Medicine Geriatric Medicine; Visit Provider Internal Medicine Rheumatology | DX: M35.01 Sjogren syndrome with keratoconjunctivitis (principal); M79.7 Fibromyalgia; M17.11 Unilateral primary osteoarthritis, right knee; J39.8 Other specified diseases of upper respiratory tract | CPT/HCPCS: 99212 ==

== ENCOUNTER 2023-05-13 13:57 | Outpatient (REF) | payer MEDICAID, SELFPAY ==
--- NOTE | 2023-05-13 | PFT_ITS ---
FLOWS: 1. FEV1 77% of predicted at 2.16 L. 2. FVC 79% of predicted at 2.75 L. 3. FEV1 to FVC ratio of 0.78. 4. No bronchodilator response. LUNG VOLUMES: 1. Total lung capacity 73% of predicted at 3.80 L. 2. Residual volume 53% of predicted at 1.03 L. 3. Slow vital capacity 84% of predicted at 2.77 L. 4. Expiratory reserve volume 71% of predicted at 0.72 L. 5. Diffusion capacity is mildly decreased, diffusion capacity corrects to normal after adjustment for alveolar ventilation. IMPRESSION: Moderate restrictive ventilatory defect with no bronchodilator response. Pal Dominguez MD AP/MODL / [id number]
== END 2023-05-13 13:58 | disposition home or self-care (01) ==
LOC: HO.RESP 13:57
PROVIDERS: PCP Internal Medicine Geriatric Medicine; Visit Provider Hospitalist
DX: J45.51 Severe persistent asthma with (acute) exacerbation (principal)
CPT/HCPCS: 94060; 94727; 94729; 99212

== ENCOUNTER → 2023-05-26 19:30 | Outpatient (REF) | payer MEDICAID, SELFPAY | LOC: HO.SL 19:30 | PROVIDERS: PCP Internal Medicine Geriatric Medicine; Visit Provider Hospitalist | DX: G47.33 Obstructive sleep apnea (adult) (pediatric) (principal); J98.4 Other disorders of lung | CPT/HCPCS: 95810 ==

== ENCOUNTER → 2023-05-26 21:55 | Outpatient (BNV) | payer MEDICAID, SELFPAY | PROVIDERS: PCP Internal Medicine Geriatric Medicine; Visit Provider Psychiatry & Neurology Neurology | DX: G47.33 Obstructive sleep apnea (adult) (pediatric) (principal) | CPT/HCPCS: 95810 ==

== ENCOUNTER 2023-05-28 13:50 | Outpatient (REF) | payer MEDICAID, SELFPAY | END 2023-05-28 13:51 | disposition home or self-care (01) | LOC: HO.MDS 13:50 | PROVIDERS: Visit Provider Hospitalist | DX: J45.50 Severe persistent asthma, uncomplicated (principal) | CPT/HCPCS: 96372; J2357 ==

== ENCOUNTER 2023-06-13 13:50 | Outpatient (AMB) | payer MEDICAID, SELFPAY ==
[2023-06-13 13:52] VITALS: BP 146/80; PULSE 87; O2SAT 99; BMI 29.7
--- NOTE | 2023-06-13 13:52 | MHC.OFFVIS ---
Intake Vital Signs 06/13/23 13:52 Height 5 ft 5 in Weight 178 lb 9.191 oz BMI 29.7 BP 146/80 H Blood Pressure Location Lt brachial Position Sitting Pulse 87 Pulse Source Pulse Oximeter Pulse Oximetry (%) 99 Oxygen Delivery Method Room Air Intake Visit Reasons: Cough and Shortness of Breath Intake Note: Pt reports shortness of breath on exertion, a cough that is frequently at night time with yellow/brown mucus, feeling like there is something stuck in her throat, and pain in her right side. Allergies latex [LATEX] Allergy (Severe, Verified 06/13/23 13:57) RASH passion fruit [PASSION FRUIT] Allergy (Severe, Verified 06/13/23 13:57) ANAPHYLAXIS Penicillins [PCN] Allergy (Severe, Verified 06/13/23 13:57) ANAPHYLAXIS shellfish derived [SHELLFISH DERIVED] Allergy (Severe, Verified 06/13/23 13:57) MOUTH SWELLING, ITCHY acetaminophen [From TYLENOL] Allergy (Mild, Verified 06/13/23 13:57) UNKNOWN ibuprofen [IBUPROFEN] Allergy (Mild, Verified 06/13/23 13:57) HX ULCERS TOLD NOT TO TAKE iodine [IODINE] Allergy (Mild, Verified 06/13/23 13:57) ITCHY lisinopril Adverse Reaction (Severe, Verified 06/13/23 13:57) Rash metformin Adverse Reaction (Severe, Verified 06/13/23 13:57) Rash HPI Cough and Shortness of Breath HPI Details Sade is a pleasant 53 year old female, followed for asthma s/p bronchial theramoplasty November/December 2022, CJ on CPAP, Sjogren?s and tracheobronchomalacia. At baseline, she has been moderately controlled on Xolair, Breo, daliresp, incruse, singular and xopenex PRN. Today she presents for an acute visit. She reports productive cough with yellowish brown sputum and associated shortness of breath and wheezing after recently traveling to [place]. She reports symptoms began on Friday and have not improved despite using her nebulizer with xopenex TID and tessaslon perles. She denies any fever, chills or known sick contacts. She went to an urgent care and diagnosed with URI, COVID negative, but not treated with anything. [facility] Medical History (Updated 05/13/23 @ 15:34 by Hood Edgar MD) Asthma Chronic restrictive lung disease Cough COVID-19 Diabetes Dysphagia Laryngitis Lesion of bronchus CJ (obstructive sleep apnea) CJ on CPAP Pneumonia [id number] syndrome Rib fracture Rib fracture Sjogrens syndrome Tracheobronchomalacia Surgical History History of bronchoscopy History of endometrial ablation Hx of tubal ligation Family History Mother Asthma Father Diabetes Social History (Updated 04/24/21 @ 15:04 by EMELIA Burton) Household Members: Spouse and Children Alcohol intake: never Patient Tobacco Use Status: Former Tobacco user Tobacco use type: Cigarette Years Smoked: 2-3 yrs Second Hand Smoke Exposure: No Review of Systems Const Denies chills, Denies excessive sweating, Denies fever(s), Denies headache(s) and Denies night sweats Eyes Denies dry eyes, Denies irritation and Denies itchy eyes ENT Reports Normal hearing present, Denies headache(s), Denies nasal congestion, Denies nasal discharge, Denies post nasal drip and Denies sore throat Card Denies chest pain, Denies chest pain at rest, Denies chest pain with activity, Denies claudication and Denies leg edema Resp Denies pain on inspiration, Denies pain with cough and Denies stridor Neuro Reports Normal hearing present and Denies headache(s) Endo Denies excessive sweating Anatoliy/Lymph Denies lymphadenopathy Aller/Immun Denies itchy eyes and Denies seasonal rhinorrhea Physical Exam Const General: cooperative, comfortable, no acute distress, well developed and alert Orientation/consciousness: patient oriented x3 Limitations: no limitations HEENT Head: Yes normal to inspection, Yes normocephalic and Yes atraumatic Ears: hearing grossly normal bilaterally and external ears normal Eyes General: appearance normal, both eyes and all related structures Eyelids: Yes eyelids normal Sclerae: sclerae normal EOM: EOMs intact bilaterally Neck Neck: Yes normal visual inspection and Yes no lymphadenopathy Lymphatic: no lymphadenopathy noted Chest Chest palpation & inspection: normal inspection of the chest Resp Effort & Inspection: normal respiratory effort (slightly labored), able to speak in complete sentences, no audible wheezes, Actively coughing Quality: actively coughing, no stridor, not tachypneic, no tripod positioning and no use of accessory muscles Auscultation: no crackles, no rales, no rhonchi and wheezes expiratory wheezes and throughout Cardio Jugular venous distension: no JVD Rate: regular rate Rhythm: regular rhythm Skin Other: warm, dry General skin exam: no rashes or lesions noted Neuro General: patient oriented x3 Cranial nerves: Yes Normal hearing present Cognition (Neuro): normal cognition Gait exam (Neuro): Normal gait present Extrem General: Yes normal to inspection, Yes capillary refill normal, Yes no clubbing, cyanosis or edema and Yes no pedal edema Psych Appearance: grossly normal and well kempt Speech and movement: Normal speech and movement present and Clear speech present Affect: normal affect Attitude: cooperative Thought process: Normal thought process present Thought content: Normal thought content present Insight: Good insight present (Psych) Judgement: Good judgement present (Psych) Assessment & Plan Assessment & Plan (1) Asthma: Comment: s/p thermoplasty Code(s): J45.909 - Unspecified asthma, uncomplicated Qualifiers: Asthma severity: severe Asthma persistence: persistent Asthma complication type: with acute exacerbation Qualified Code(s): J45.51 - Severe persistent asthma with (acute) exacerbation Plan Sade's symptoms are consistent with an exacerbation. Will treat with solumedrol IM in office then prednisone and antibiotics. Patient aware if symptoms do not improve to contact office and if they worsen to seek emergent care. All questions were answered and patient is in agreement of plan. She will follow up for her regularly scheduled appointment with Dr. Edgar in June. Medications: New azithromycin For 250 mg dose pack: take 500 mg today (day 1), then 250 mg for 4 days (days 2-5) PO 6 tabs 0RF prednisone see taper instructions; 40 mg Daily for three days, 30 mg daily for three days, 20 mg daily for three days, 10 mg daily for three days 10 mg PO DIRECTED 30 tabs 0RF Refilled levalbuterol HCl 1.25 mg (3 mL) inhalation Q6H PRN 300 mL 3RF for wheezing J44.9 - Chronic obstructive pulmonary disease, unspecified Coding Level of Care Code Est Pt Level 4 (12428) Diagnoses Asthma J45.51 Asthma severity: severe Asthma persistence: persistent Asthma complication type: with acute exacerbation
== END 2023-06-13 14:15 | disposition home or self-care (01) ==
PROVIDERS: PCP Internal Medicine Geriatric Medicine; Visit Provider Nurse Practitioner Family
DX: J45.909 Unspecified asthma, uncomplicated (principal); J45.51 Severe persistent asthma with (acute) exacerbation
CPT/HCPCS: 99214

== ENCOUNTER → 2023-06-13 13:50 | Outpatient (BNVA) | payer MEDICAID, SELFPAY | PROVIDERS: PCP Internal Medicine Geriatric Medicine; Visit Provider Nurse Practitioner Family | DX: J45.51 Severe persistent asthma with (acute) exacerbation (principal) | CPT/HCPCS: 96372; 99214; J2930 ==

== ENCOUNTER 2023-06-25 12:52 | Outpatient (REF) | payer MEDICAID, SELFPAY | END 2023-06-25 12:53 | disposition home or self-care (01) | LOC: HO.MDS 12:52 | PROVIDERS: Visit Provider Hospitalist | DX: J45.50 Severe persistent asthma, uncomplicated (principal) | CPT/HCPCS: 96372; J2357 ==

== ENCOUNTER 2023-07-31 11:09 | Outpatient (AMB) | payer MEDICAID, SELFPAY ==
[2023-07-31 11:15] VITALS: BP 128/70; PULSE 66; O2SAT 100; BMI 29.7
--- NOTE | 2023-07-31 11:15 | MHC.OFFVIS ---
Intake Vital Signs 07/31/23 11:15 Height 5 ft 5 in Weight 178 lb 9.191 oz BMI 29.7 BP 128/70 Blood Pressure Location Lt brachial Pulse 66 Pulse Source Pulse Oximeter Pulse Oximetry (%) 100 Oxygen Delivery Method Room Air Intake Visit Reasons: Lung Pain Investments Manager Required: No Allergies latex [LATEX] Allergy (Severe, Verified 07/31/23 11:18) RASH passion fruit [PASSION FRUIT] Allergy (Severe, Verified 07/31/23 11:18) ANAPHYLAXIS Penicillins [PCN] Allergy (Severe, Verified 07/31/23 11:18) ANAPHYLAXIS shellfish derived [SHELLFISH DERIVED] Allergy (Severe, Verified 07/31/23 11:18) MOUTH SWELLING, ITCHY acetaminophen [From TYLENOL] Allergy (Mild, Verified 07/31/23 11:18) UNKNOWN ibuprofen [IBUPROFEN] Allergy (Mild, Verified 07/31/23 11:18) HX ULCERS TOLD NOT TO TAKE iodine [IODINE] Allergy (Mild, Verified 07/31/23 11:18) ITCHY lisinopril Adverse Reaction (Severe, Verified 07/31/23 11:18) Rash metformin Adverse Reaction (Severe, Verified 07/31/23 11:18) Rash HPI HPI Comments History of Present Illness Details The patient is a 53 y/o woman with a history of tracheobronchomalacia in addition to asthma. She is status post tracheoplasty in [place] complicated by right-sided pleural effusion and significant right-sided chest discomfort. 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 More recently she did have a CT scan of the chest that [facility] demonstrating a nondisplaced rib fracture. No evidence of any pulmonary emboli. Her chest pain is still moderate severity. Limiting her activity. She is scheduled to have a repeat CT scan of the chest and bronchoscopy in [facility]. She continues to use her respiratory inhalers for her asthma. We did give her further indication about which inhalers she should be using. She is status post bronchoscopy demonstrating patency of the trachea and a successful surgery. Her cough is significantly improved. She continues with respiratory therapy. 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 She did have a visit with the pain specialist. In the meantime the patient needs to be using her CPAP. She states that he needs to be adjusted. She will bring in the next time so we can adjusted the CPAP so she can use it as prescribed. She understands was so help her respiratory status and also decrease cardiovascular risks. 12/14/2021 the patient is here for a pulmonary follow-up visit. The patient continues to be uncomfortable. She does complaint of this persistent right-sided chest discomfort. Partly is due to her rib fractures that may have not healed completely. In addition to that just postoperative post thoracotomy syndrome. In addition she does have significant asthma making her symptoms worse. She does have elevated allergy markers. The patient did qualify for Xolair she will be starting Xolair next week which I am hoping provides her with much needed relief. In addition to that she did follow up in [place] in the 1 her to have a repeat CT scan of the chest with dynamic expiratory cuts to better address her tracheomalacia. Prior to her appointment and follow up in [place] they do want her to have a repeat bronchoscopy and also do a some additional microbiology cultures. Will plan to do that in the next 1-2 weeks. 12/06/2022 the patient is here for pulmonary follow-up visit. Overall the patient has been doing better. She is has had her 2nd course of bronchial thyroplasty. She needs her 3rd 1 which is scheduled next week. She will be pre treating with prednisone. The patient overall is doing better from a respiratory status. She continues with Xolair. She does state that if she misses a Xolair her symptoms worsen. So therefore she knows she needs to use her medication every 4 weeks. The patient hopefully will get even a better response after she completes her thermoplastic. The patient continues to have daytime drowsiness. She does have a net weight an elevated Alderpoint score of 10/24. She needs to have a sleep study. Although with all them is some [place] she has had a hard time arranging that. Hopefully she can have that soon. She continues use the oxygen with activity. She does feel that the benefits her significantly. And she does not see herself without it. Will have to we assess her respiratory status after she recovers from her thermoplastic hopefully in early January. 01/29/2023 the patient is here for a pulmonary follow-up visit. The patient is actually pretty sick. She underwent her 3rd thermal plasty back in November or December. During the procedure she had also a biopsy done. After the procedure the patient had significant hemoptysis and she was admitted briefly to [facility]. She was given cough medications with improvement of her symptoms. Now she has been using the [place] aids and also using now the cough medicine to keep from coughing and up keep it from bleeding. Subsequently after that to she has had significant wheezing chest tightness which is typical after thermal plastic. Will go ahead and give her Solu-Medrol today because she is having significant wheezing and coughing and also will go on prednisone at home. The patient also has been taking antibiotics which we prescribed and will continue to provide her with cough suppressants to minimize any further injury to the lungs. She did have a CT scan at [facility] which I do not have access right now but I will look at it and review it. The patient did have a walking test today 6 minute walk test demonstrated that she still desaturates with activity and she needs to continue the oxygen for now. I am hopeful that in the next 4-6 months we can discontinue the oxygen however. 02/27/2023 the patient is here for a pulmonary follow-up visit. She is feeling better from a respiratory status. Seems like the inflammatory changes after the thermoplastic have subsided. She continues use respiratory medications. Now she is describing some right-sided chest discomfort primarily on the side. The discomfort is reproducible. In addition to that she had seen her primary care doctor secondary to gluteal pain and burning. I did appreciate the area seems to be more musculoskeletal. Likely muscular spasms. Patient can try some muscle relaxers see if this provides some relief. If no better she always get an x-ray. She continues with respiratory medicine. She is now off prednisone which is reassuring. 05/13/2023 the patient is here for a pulmonary follow-up visit. Overall the patient had been doing relatively well. She continues to have dyspnea on exertion. She also responds well to the oxygen specially if she is exercising. The patient recently went to [place] and completed a course of thermoplastic. Now she is doing well from an asthma standpoint. She is continues on the Xolair continues with allergy medicine. She did undergo pulmonary function studies today which we personally reviewed in the office. No evidence of any obstructive ventilatory defects. Although her total lung capacity still low at 73%. Indeed is better than before which was 69% and a diffusing capacity is a little better as well. Still this restrictive ventilatory defect does the affect her her symptoms. I do believe that she will benefit from pulmonary rehabilitation at this time and the patient is agreeable to this. In the meantime she is going to continue with current allergy therapy. She also is being monitored off for underlying pulmonary nodules. Her last CT scan was done at [facility] back in January 2023. No evidence of any residual rib fractures that she was wondering. Again pulmonary nodules that will need follow-up. During that visit she also has some stranding in the GI tract due to likely food poisoning. Also, still having daytime drowsiness. EPWORTH score 11/24. 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 Will order an in-lab PSG. Current the patient is doing well she will return to [place] sometime in November. Otherwise will continue to follow her every 4-6 months. 07/31/2023 the patient is here for pulmonary follow-up visit. The patient has been complaining of worsening asthma symptoms. She has been having increasing chest tightness and wheezing. This has been happening now for the last 3 days. She continues with Xolair injections in does have been helpful. Denies any sick contacts. She has been using her respiratory therapy. Her cough is been difficult because is been keeping her up at nighttime. Will go ahead and provide her with cough suppressant therapy. She is concerned because she has a trip planned in at this point with the asthma exacerbation the patient will go ahead and receive Solu-Medrol IM x1. She is going to continue respiratory therapy. If the patient is no better she will call the office for additional steroid therapy. The patient also continues to have significant daytime drowsiness. She did have a sleep study back in the summer demonstrating mild sleep apnea. Patient will try positional therapy. But, if the patient continues to be symptomatic with daytime drowsiness she would benefit from CPAP therapy. [facility] Medical History (Updated 07/25/23 @ 13:59 by Tal Trammell MD) Laryngitis Dysphagia Rib fracture Rib fracture Cough Chronic restrictive lung disease [id number] syndrome CJ (obstructive sleep apnea) CJ on CPAP Diabetes Sjogrens syndrome Lesion of bronchus Pneumonia Asthma Tracheobronchomalacia COVID-19 Surgical History History of bronchoscopy History of endometrial ablation Hx of tubal ligation Family History Mother Asthma Father Diabetes Social History Household Members: Spouse and Children Alcohol intake: never Patient Tobacco Use Status: Former Tobacco user Tobacco use type: Cigarette Years Smoked: 2-3 yrs Second Hand Smoke Exposure: No Review of Systems Const Reports daytime sleepiness, Reports difficulty sleeping and Denies night sweats ENT Denies change in voice, Denies lip swelling, Denies mouth pain, Reports nasal congestion, Reports nasal discharge and Reports sore throat Card Reports chest pain and Reports dyspnea on exertion Resp Reports chest congestion, Reports cough, Denies hemoptysis, Reports pain on inspiration, Reports pain with cough, Reports dyspnea on exertion and Reports wheezing GI Denies abdominal pain Musc Denies no additional complaints and Reports back pain Skin/Breast Denies rash Neuro Denies Neuro-related abnormal movements and Reports paresthesias Psych Denies no additional complaints Anatoliy/Lymph Denies easy bleeding and Denies lymphadenopathy Aller/Immun Denies lip swelling and Reports wheezing Physical Exam Vital Signs: Last Vital Signs Pulse 66 07/31/23 11:15 BP 128/70 07/31/23 11:15 Pulse Ox 100 07/31/23 11:15 Oxygen Delivery Method Room Air 07/31/23 11:15 BMI result Body Mass Index 29.7 Const General: alert; No in distress HEENT Head: Yes normocephalic Throat: Yes posterior oropharynx abnormal ( erythematous) and Yes postnasal drainage Neck Neck: Yes normal visual inspection, Yes full ROM, Yes no lymphadenopathy and Yes lymphadenopathy Chest Chest palpation & inspection: normal inspection of the chest and tenderness rib (on the right side with areas of tenderness) Resp Effort & Inspection: prolonged expiratory phase Auscultation: wheezes and diminished lung sounds Cardio Rate: regular rate Rhythm: regular rhythm Heart sounds: S1 normal heart sound present and S2 normal heart sound present GI Palpation (GI): Soft to palpation and nontender Auscultation: normal bowel sounds Skin General skin exam: rashes and/or lesions noted Extrem General: No cyanosis and Yes edema Office Meds methylprednisolone sod suc(PF) 125 mg/2 mL solution for injection Performing Provider: Hood Edgar MD Performing Location: [facility] Administered by: Gloria Lloyd LPN on 07/31/23 11:47 Dose Route Admin Location Dispensed Lot Number Expiration Date ND Batter Depositor 125 mg IM L deltoid 2 mL [id number] 08/16/25 1664-2629-52 [employer] Comments: patient requested the injection in her deltoid Assessment & Plan Assessment & Plan (1) Asthma: Comment: s/p thermoplasty Code(s): J45.909 - Unspecified asthma, uncomplicated Qualifiers: Asthma severity: severe Asthma persistence: persistent Asthma complication type: with acute exacerbation Qualified Code(s): J45.51 - Severe persistent asthma with (acute) exacerbation (2) Chronic restrictive lung disease: Code(s): J98.4 - Other disorders of lung (3) Chest pain: Comment: muscle spasms, very likely Code(s): R07.9 - Chest pain, unspecified Qualifiers: Chest pain type: chest pain on breathing Qualified Code(s): R07.1 - Chest pain on breathing (4) CJ (obstructive sleep apnea): Code(s): G47.33 - Obstructive sleep apnea (adult) (pediatric) (5) Sjogrens syndrome: Code(s): M35.00 - Sjogren syndrome, unspecified Qualifiers: Sjogren's organ involvement: keratoconjunctivitis Qualified Code(s): M35.01 - Sicca syndrome with keratoconjunctivitis (6) Tracheobronchomalacia: Comment: 2019: treated with tracheoplasty in [place] Code(s): J39.8 - Other specified diseases of upper respiratory tract Plan start ZPACK Start Steroids, solumedrol x 1 cough suppressant continue Xolair. monitor for headaches Continue Breo, incruse Continue APAP Xopenex - The patient cannot tolerate albuterol due to significant adverse effects with tachycardia at tremulousness and agitation Ambien for sleep, although not working well. Will try sleep behavioral therapy/white noise continue daliresp PPI reflux diet mild CJ, severe REM related sleep disorder, benefits from APAP therapy F/U 3-4 months Orders: Orders AMB Methylprednisolone Injection Today J45.909 - Unspecified asthma, uncomplicated Medications: New biotin 5 mg PO DAILY 30 days 30 tabs 10RF Refilled codeine-guaifenesin 10-100 mg/5 mL 10 mL PO Q4H 10 days PRN 300 mL 0RF cough S22.39XA - Fracture of one rib, unspecified side, initial encounter for closed fracture azithromycin For 250 mg dose pack: take 500 mg today (day 1), then 250 mg for 4 days (days 2-5) PO 6 tabs 0RF montelukast (Singulair) 10 mg PO DAILY 90 tabs 3RF Coding Level of Care Code Est Pt Level 5 (60009) Diagnoses Severe persistent asthma with acute exacerbation J45.51 Asthma severity: severe Asthma persistence: persistent Asthma complication type: with acute exacerbation Chronic restrictive lung disease J98.4 Chest pain on breathing R07.1 Chest pain type: chest pain on breathing CJ (obstructive sleep apnea) G47.33 Sjogren's syndrome with keratoconjunctivitis sicca M35.01 Sjogren's organ involvement: keratoconjunctivitis Tracheobronchomalacia J39.8 Time Spent (min) 45
== END 2023-07-31 11:47 | disposition home or self-care (01) ==
PROVIDERS: PCP Internal Medicine Geriatric Medicine; Visit Provider Hospitalist
DX: J45.51 Severe persistent asthma with (acute) exacerbation (principal); J98.4 Other disorders of lung; R07.1 Chest pain on breathing; G47.33 Obstructive sleep apnea (adult) (pediatric); M35.01 Sjogren syndrome with keratoconjunctivitis
CPT/HCPCS: 99215

== ENCOUNTER → 2023-07-31 11:09 | Outpatient (BNVA) | payer MEDICAID, SELFPAY | PROVIDERS: PCP Internal Medicine Geriatric Medicine; Visit Provider Hospitalist | DX: J45.51 Severe persistent asthma with (acute) exacerbation (principal); J98.4 Other disorders of lung; R07.1 Chest pain on breathing; G47.33 Obstructive sleep apnea (adult) (pediatric); M35.01 Sjogren syndrome with keratoconjunctivitis; J39.8 Other specified diseases of upper respiratory tract; Z79.899 Other long term (current) drug therapy | CPT/HCPCS: 96372; 99212; J2930 ==

== ENCOUNTER 2023-08-22 15:08 | Outpatient (REF) | payer MEDICAID, SELFPAY | END 2023-08-22 15:09 | disposition home or self-care (01) | LOC: HO.MDS 15:08 | PROVIDERS: Visit Provider Hospitalist | DX: J45.50 Severe persistent asthma, uncomplicated (principal) | CPT/HCPCS: 96372; J2357 ==

== ENCOUNTER 2023-08-27 12:31 | Outpatient (REF) | payer MEDICAID, SELFPAY ==
[2023-08-27 13:14] LABS: MANUAL DIFF FLAG NO
[2023-08-27 13:25] LABS: Basophils Absolute Auto 0.1 X10*3/uL (0.0-0.2); Basophils Percent Auto 0.8 % (0-2); Eosinophils Absolute Auto 0.1 X10*3/uL (0.0-0.4); Eosinophils Percent Auto 1.5 % (0-4); Hematocrit 42.4 % (37.0-47.0); Hemoglobin 13.2 g/dl (12.0-16.0); Imm Gran Abs Auto 0.02 X10*3/uL (0.00-0.03); Imm Gran Pct Auto 0.3 % (0.0-0.4); Lymphocytes Absolute Auto 2.3 X10*3/uL (1.2-4.9); Lymphocytes Percent Auto 34.4 % (20-40); Mean Corpuscular HGB Conc 31.1 g/dl (31.0-35.0); Mean Corpuscular Hemoglobin 24.6 pg (27.0-33.0); Mean Corpuscular Volume 79.1 fL (80.0-98.0); Mean Platelet Volume 10.9 fL (9.4-12.3); Monocytes Absolute Auto 0.5 X10*3/uL (0.1-1.2); Monocytes Percent Auto 7.8 % (2-11); Neutrophils Absolute Auto 3.7 x10*3/uL (2.0-8.3); Neutrophils Percent Auto 55.2 % (45-73); Platelet Count 221 X10*3/uL (160-400); Red Blood Count 5.36 X10*6/uL (4.20-5.50); Red Cell Distribution Width 13.6 % (11.0-16.0); White Blood Count 6.6 X10*3/uL (4.8-10.8)
[2023-08-30 08:58] LABS: Myeloperoxidase Antibody <1.0 AI; Proteinase 3 PR3 Antibodies <1.0 AI
== END 2023-08-27 12:32 | disposition home or self-care (01) ==
LOC: HO.HHCL 12:31
PROVIDERS: PCP Internal Medicine Geriatric Medicine; Visit Provider Internal Medicine Rheumatology
DX: L65.9 Nonscarring hair loss, unspecified (principal); M35.00 Sjogren syndrome, unspecified; J39.8 Other specified diseases of upper respiratory tract
CPT/HCPCS: 36415; 83540; 84443; 85025; 85652; 86021; 86140

== ENCOUNTER 2023-09-19 11:20 | Outpatient (REF) | payer MEDICAID, SELFPAY | END 2023-09-19 11:21 | disposition home or self-care (01) | LOC: HO.MDS 11:20 | PROVIDERS: Visit Provider Hospitalist | DX: J45.50 Severe persistent asthma, uncomplicated (principal) | CPT/HCPCS: 96372; J2357 ==

== ENCOUNTER 2023-10-28 12:59 | Outpatient (REF) | payer OTHER, SELFPAY ==
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
--- NOTE | ~2023-10-28 | XR_ITS ---
EXAMINATION: XR HAND, RIGHT CLINICAL INFORMATION: Pain COMPARISON: None TECHNIQUE: 3 views of the hand FINDINGS: No fracture or dislocation. Joint spaces are maintained. No cortical erosion. Soft tissues are unremarkable. XR/XR hand RT min 3V IMPRESSION: No acute osseous abnormality.
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
--- NOTE | ~2023-10-28 | XR_ITS ---
EXAMINATION: XR cervical spine 5V CLINICAL INFORMATION: Pain COMPARISON: Cervical spine radiographs 05/02/2017 TECHNIQUE: 5 views of the cervical spine were obtained. FINDINGS: The cervical spine is visualized to the level of C7-T1 on the lateral view. Vertebral body alignment is maintained. Stable mild loss of height involving the C5 vertebral body unchanged from 2017. Vertebral body heights are otherwise maintained. Lateral masses of C1 are well aligned on C2. Visualized portion of the dens is intact. Mild multilevel degenerative disc disease minimally progressed from prior with small disc osteophyte complexes and multilevel facet arthropathy.. Uncovertebral hypertrophy and facet arthropathy results in mild bilateral multilevel neural foraminal narrowing. No prevertebral soft tissue swelling. XR/XR cervical spine 5V IMPRESSION: 1. Mild spondylosis of the cervical spine, as above detailed, minimally progressed from prior. Mild neural foraminal narrowing, as above detailed. 2. Stable mild loss of height involving the C5 vertebral body unchanged from 2017. Vertebral body heights are otherwise maintained.
== END 2023-10-28 13:00 | disposition home or self-care (01) ==
LOC: HO.HHCX 12:59
PROVIDERS: Visit Provider Internal Medicine Geriatric Medicine
DX: M25.561 Pain in right knee (principal); M54.50 Low back pain, unspecified; M54.2 Cervicalgia; M54.12 Radiculopathy, cervical region; M25.511 Pain in right shoulder; M25.512 Pain in left shoulder; M79.641 Pain in right hand; M25.562 Pain in left knee
CPT/HCPCS: 72050; 72100; 73030; 73130; 73564

== ENCOUNTER 2023-11-25 12:22 | Outpatient (REF) | payer MEDICAID, SELFPAY | END 2023-11-25 12:23 | disposition home or self-care (01) | LOC: HO.MDS 12:22 | PROVIDERS: Visit Provider Hospitalist | DX: J45.50 Severe persistent asthma, uncomplicated (principal) | CPT/HCPCS: 96372; J2357 ==

== ENCOUNTER 2023-11-28 10:48 | Outpatient (AMB) | payer MEDICAID, SELFPAY ==
--- NOTE | 2023-11-28 11:05 | A.OFFVIS_ITS ---
Intake Vital Signs 11/28/23 11:06 Height 5 ft 5 in Weight 178 lb 9.191 oz BMI 29.7 Pulse 79 Pulse Source Pulse Oximeter Pulse Oximetry (%) 100 Oxygen Delivery Method Room Air Intake Visit Reasons: Lung Pain Allergies latex [LATEX] Allergy (Severe, Verified 11/28/23 11:07) RASH passion fruit [PASSION FRUIT] Allergy (Severe, Verified 11/28/23 11:07) ANAPHYLAXIS Penicillins [PCN] Allergy (Severe, Verified 11/28/23 11:07) ANAPHYLAXIS shellfish derived [SHELLFISH DERIVED] Allergy (Severe, Verified 11/28/23 11:07) MOUTH SWELLING, ITCHY acetaminophen [From TYLENOL] Allergy (Mild, Verified 11/28/23 11:07) UNKNOWN ibuprofen [IBUPROFEN] Allergy (Mild, Verified 11/28/23 11:07) HX ULCERS TOLD NOT TO TAKE iodine [IODINE] Allergy (Mild, Verified 11/28/23 11:07) ITCHY lisinopril Adverse Reaction (Severe, Verified 11/28/23 11:07) Rash metformin Adverse Reaction (Severe, Verified 11/28/23 11:07) Rash HPI HPI Comments History of Present Illness0 Details The patient is a 53 y/o woman with a history of tracheobronchomalacia in addition to asthma. She is status post tracheoplasty in [place] complicated by right-sided pleural effusion and significant right-sided chest discomfort. 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 More recently she did have a CT scan of the chest that [facility] demonstrating a nondisplaced rib fracture. No evidence of any pulmonary emboli. Her chest pain is still moderate severity. Limiting her activity. She is scheduled to have a repeat CT scan of the chest and bronchoscopy in [facility]. She continues to use her respiratory inhalers for her asthma. We did give her further indication about which inhalers she should be using. She is status post bronchoscopy demonstrating patency of the trachea and a successful surgery. Her cough is significantly improved. She continues with respiratory therapy. 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 She did have a visit with the pain specialist. In the meantime the patient needs to be using her CPAP. She states that he needs to be adjusted. She will bring in the next time so we can adjusted the CPAP so she can use it as prescribed. She understands was so help her respiratory status and also decrease cardiovascular risks. 05/13/2023 the patient is here for a pulm onary follow-up visit. Overall the patient had been doing relatively well. She continues to have dyspnea on exertion. She also responds well to the oxygen specially if she is exercising. The patient recently went to [place] and completed a course of thermoplastic. Now she is doing well from an asthma standpoint. She is continues on the Xolair continues with allergy medicine. She did undergo pulmonary function studies today which we personally reviewed in the office. No evidence of any obstructive ventilatory defects. Although her total lung capacity still low at 73%. Indeed is better than before which was 69% and a diffusing capacity is a little better as well. Still this restrictive ventilatory defect does the affect her her symptoms. I do believe that she will benefit from pulmonary rehabilitation at this time and the patient is agreeable to this. In the meantime she is going to continue with current allergy therapy. She also is being monitored off for underlying pulmonary nodules. Her last CT scan was done at [facility] back in January 2023. No evidence of any residual rib fractures that she was wondering. Again pulmonary nodules that will need follow-up. During that visit she also has some stranding in the GI tract due to likely food poisoning. Also, still having daytime drowsiness. EPWORTH score 1 12/10. 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 Will order an in-lab PSG. Current the patient is doing well she will return to [place] sometime in November. Otherwise will continue to follow her every 4-6 months. 07/31/2023 the patient is here for pulmon adarsh follow-up visit. The patient has been complaining of worsening asthma symptoms. She has been having increasing chest tightness and wheezing. This has been happening now for the last 3 days. She continues with Xolair injections in does have been helpful. Denies any sick contacts. She has been using her respiratory therapy. Her cough is been difficult because is been keeping her up at nighttime. Will go ahead and provide her with cough suppressant therapy. She is concerned because she has a trip planned in at this point with the asthma exacerbation the patient will go ahead and receive Solu-Medrol IM x1. She is going to continue respiratory therapy. If the patient is no better she will call the office for additional steroid therapy. The patient also continues to have significant daytime drowsiness. She did have a sleep study back in the summer demonstrating mild sleep apnea. Patient will try positional therapy. But, if the patient continues to be symptomatic with daytime drowsiness she would benefit from CPAP therapy. 11/28/2023 the [facility] is [facility] Apparently the beginning of the year she was exposed to her grandson with the flu. Ultimately developed the flu she did call and she did take Tamiflu. Although her respiratory symptoms worsened and she required prednisone and also antibiotics. She will call the office when he stopped the medications to the pharmacy. She continues to have significant asthma chest tightness and wheezing. She is wondering what she can do. She also has chest congestion and difficult to expectorate the phlegm. The patient does have significant wheezing will provide her with Solu-Medrol 125 mg IM x1. The patient also benefit from another course of antibiotics and prednisone. She does have a scheduled bronchoscopy next week for follow-up after thrombo plasty. But at this point I did recommend to the patient that if she continues to have active asthma she should postpone specially if there has no need for any interventions. 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 CJ (obstructive sleep apnea) CJ on CPAP Diabetes Sjogrens syndrome Lesion of bronchus Pneumonia Asthma Tracheobronchomalacia COVID-19 Surgical History History of bronchoscopy History of endometrial ablation Hx of tubal ligation Family History Mother Asthma Father Diabetes Social History Household Members: Spouse and Children Alcohol intake: never Patient Tobacco Use Status: Former Tobacco user Tobacco use type: Cigarette Years Smoked: 2-3 yrs Second Hand Smoke Exposure: No Review of Systems Const Reports daytime sleepiness, Reports difficulty sleeping and Denies night sweats ENT Denies change in voice, Denies lip swelling, Denies mouth pain, Reports nasal congestion, Reports nasal discharge and Reports sore throat Card Reports chest pain and Reports dyspnea on exertion Resp Reports chest congestion, Reports cough, Denies hemoptysis, Reports pain on inspiration, Reports pain with cough, Reports dyspnea on exertion and Reports wheezing GI Denies abdominal pain Musc Denies no additional complaints and Reports back pain Skin/Breast Denies rash Neuro Denies Neuro-related abnormal movements and Reports paresthesias Psych Denies no additional complaints Anatoliy/Lymph Denies easy bleeding and Denies lymphadenopathy Aller/Immun Denies lip swelling and Reports wheezing Physical Exam Vital Signs: Last Vital Signs Pulse 79 11/28/23 11:06 Pulse Ox 100 11/28/23 11:06 Oxygen Delivery Method Room Air 11/28/23 11:06 BMI result Body Mass Index 29.7 Const General: alert; No in distress HEENT Head: Yes normocephalic Throat: Yes posterior oropharynx abnormal ( erythematous) and Yes postnasal drainage Neck Neck: Yes normal visual inspection, Yes full ROM, Yes no lymphadenopathy and Yes lymphadenopathy Chest Chest palpation & inspection: normal inspection of the chest and tenderness rib (on the right side with areas of tenderness) Resp Effort & Inspection: prolonged expiratory phase Auscultation: wheezes and diminished lung sounds Cardio Rate: regular rate Rhythm: regular rhythm Heart sounds: S1 normal heart sound present and S2 normal heart sound present GI Palpation (GI): Soft to palpation and nontender Auscultation: normal bowel sounds Skin General skin exam: rashes and/or lesions noted Extrem General: No cyanosis and Yes edema Office Meds methylprednisolone sod suc(PF) 125 mg/2 mL solution for injection Performing Provider: Hood Edgar MD Performing Location: [facility] Pulmonology Services Administered by: Gloria Lloyd LPN on 11/28/23 11:47 Dose Route Admin Location Dispensed Lot Number Expiration Date [facility] [employer] 125 mg IM R deltoid 2 mL [id number] 11/16/25 7763-5707-48 [employer] Assessment & Plan Assessment & Plan (1) Asthma: Comment: s/p thermoplasty Code(s): J45.909 - Unspecified asthma, uncomplicated Qualifiers: Asthma complication type: with acute exacerbation Asthma persistence: persistent Asthma severity: severe Qualified Code(s): J45.51 - Severe persistent asthma with (acute) exacerbation (2) Chronic restrictive lung disease: Code(s): J98.4 - Other disorders of lung (3) CJ (obstructive sleep apnea): Code(s): G47.33 - Obstructive sleep apnea (adult) (pediatric) (4) Sjogrens syndrome: Code(s): M35.00 - Sjogren syndrome, unspecified Qualifiers: Sjogren's organ involvement: keratoconjunctivitis Qualified Code(s): M35.01 - Sicca syndrome with keratoconjunctivitis (5) Tracheobronchomalacia: Comment: 2019: treated with tracheoplasty in [place] Code(s): J39.8 - Other specified diseases of upper respiratory tract Plan start ZPACK Start Steroids, solumedrol x 1 cough suppressant continue Xolair. monitor for headaches Continue Breo, incruse Continue APAP Xopenex - The patient cannot tolerate albuterol due to significant adverse effects with tachycardia at tremulousness and agitation Ambien for sleep, although not working well. Will try sleep behavioral therapy/white noise continue daliresp PPI reflux diet mild CJ, severe REM related sleep disorder, benefits from APAP therapy Bloodwork once she recovers and is off the prednisone F/U 3-4 months Orders: Orders Erythrocyte Sedimentation Rate 11/28/23 J45.909 - Unspecified asthma, uncomplicated AMB Methylprednisolone Injection 11/28/23 J45.909 - Unspecified asthma, uncomplicated Immunoglobulin E 11/28/23 J45.909 - Unspecified asthma, uncomplicated Complete Blood Count Auto Diff 11/28/23 J45.909 - Unspecified asthma, uncomplicated Medications: New prednisone PO daily; Take 6 tabs daily x 3 days, then 5 tabs x 3 days, then 4 tabs x 3 days, then 3 tabs x 3 days, then 2 tabs daily x 3 days, then 1 tab x 3 days to complete. 18 days 63 tabs 0RF azithromycin 500 mg PO DAILY 5 days 5 tabs 0RF codeine-guaifenesin 10-100 mg/5 mL 10 mL PO Q6H 10 days PRN 300 mL 0RF cough Refilled fexofenadine ([facility]) 180 mg PO DAILY 30 days 30 tabs 10RF Coding Level of Care Code Est Pt Level 4 (63839) Diagnoses Severe persistent asthma with acute exacerbation J45.51 Asthma complication type: with acute exacerbation Asthma persistence: persistent Asthma severity: severe Chronic restrictive lung disease J98.4 CJ (obstructive sleep apnea) G47.33 Sjogren's syndrome with keratoconjunctivitis sicca M35.01 Sjogren's organ involvement: keratoconjunctivitis Tracheobronchomalacia J39.8 Time Spent (min) 18
[2023-11-28 11:06] VITALS: PULSE 79; O2SAT 100; BMI 29.7
== END 2023-11-28 11:40 | disposition home or self-care (01) ==
PROVIDERS: PCP Internal Medicine Geriatric Medicine; Referring Provider Internal Medicine Geriatric Medicine; Visit Provider Hospitalist
DX: J45.51 Severe persistent asthma with (acute) exacerbation (principal); J98.4 Other disorders of lung; G47.33 Obstructive sleep apnea (adult) (pediatric); M35.01 Sjogren syndrome with keratoconjunctivitis; J39.8 Other specified diseases of upper respiratory tract
CPT/HCPCS: 99214

== ENCOUNTER → 2023-11-28 10:48 | Outpatient (BNVA) | payer MEDICAID, SELFPAY | PROVIDERS: PCP Internal Medicine Geriatric Medicine; Visit Provider Hospitalist | DX: J45.51 Severe persistent asthma with (acute) exacerbation (principal); J98.4 Other disorders of lung; J39.8 Other specified diseases of upper respiratory tract; G47.33 Obstructive sleep apnea (adult) (pediatric); M35.01 Sjogren syndrome with keratoconjunctivitis; Z79.899 Other long term (current) drug therapy | CPT/HCPCS: 96372; 99212; J2930 ==

== ENCOUNTER 2023-12-23 11:48 | Outpatient (REF) | payer MEDICAID, SELFPAY | END 2023-12-23 11:49 | disposition home or self-care (01) | LOC: HO.MDS 11:48 | PROVIDERS: Visit Provider Hospitalist | DX: J45.50 Severe persistent asthma, uncomplicated (principal) | CPT/HCPCS: 96372; J2357 ==

== ENCOUNTER 2023-12-29 19:02 | Outpatient (REF) | payer MEDICAID, SELFPAY ==
--- NOTE | ~2023-12-29 | MR_ITS ---
EXAMINATION: MR SHOULDER WITHOUT CONTRAST, RIGHT CLINICAL INFORMATION: Right shoulder pain, swelling, numbness, lump/mass. Internal derangement. COMPARISON: Right shoulder radiographs dated 10/28/2023. TECHNIQUE: MRI of the shoulder without contrast was performed on a high-field scanner. FINDINGS: ROTATOR CUFF: Mild supraspinatus and infraspinatus tendinosis. Minimal bursal surface fraying the junctional fibers without a measurable or full-thickness rotator cuff tendon tear. No muscle atrophy or fatty infiltration. BICEPS: Trace fluid within the proximal long head biceps tendon sheath which may resent normal variation versus minimal tenosynovitis. No tendon tear. CORACOACROMIAL ARCH: The undersurface of the acromion is curved with small subacromial spurs. Moderate acromioclavicular osteoarthritis. Mild fluid and edema within the subacromial-subdeltoid bursa, consistent mild bursitis. LABRUM/CAPSULE: No labral tear. Intact joint capsule. GLENOHUMERAL JOINT/MARROW: Intact articular cartilage. No marrow edema. No acute fracture or dislocation. MR/MR shoulder RT wo con IMPRESSION: 1. Mild supraspinatus and infraspinatus tendinosis with minimal bursal surface fraying of the junctional fibers. No measurable or full-thickness rotator cuff tendon tear. 2. Trace fluid within the proximal long head biceps tendon sheath which may resent normal variation versus minimal tenosynovitis. No tendon tear. 3. Moderate acromioclavicular osteoarthritis with small subacromial spurs. 4. Mild subacromial-subdeltoid bursitis.
== END 2023-12-29 19:03 | disposition home or self-care (01) ==
LOC: HO.MRI 19:02
PROVIDERS: PCP Internal Medicine Geriatric Medicine; Visit Provider Internal Medicine Geriatric Medicine
DX: M25.511 Pain in right shoulder (principal); M24.811 Other specific joint derangements of right shoulder, not elsewhere classified
CPT/HCPCS: 73221

== ENCOUNTER 2024-01-20 12:06 | Outpatient (REF) | payer MEDICAID, SELFPAY ==
[2024-01-20 12:18] VITALS: BP 156/97; PULSE 83; RESP 18; TEMP 36.3; O2SAT 100; BMI 27.6
[2024-01-20] MEDS: Omalizumab 150 MG/ML SYRINGE 300 MG SUBCUT (12:29)
--- NOTE | 2024-01-20 12:34 | HO.INF ---
both Sq injections given to patient- in left upper arm.
== END 2024-01-20 12:07 | disposition home or self-care (01) ==
LOC: HO.MDS 12:06
PROVIDERS: Visit Provider Hospitalist
DX: J45.50 Severe persistent asthma, uncomplicated (principal)
CPT/HCPCS: 96372; J2357

== ENCOUNTER 2024-03-25 14:34 | Outpatient (AMB) | payer MEDICAID, SELFPAY ==
[2024-03-25 14:39] VITALS: PULSE 79; O2SAT 98; BMI 28.6
--- NOTE | 2024-03-25 14:39 | A.OFFVIS_ITS ---
Vital Signs 03/25/24 14:39 Height 5 ft 5 in Weight 172 lb 2.896 oz BMI 28.6 Pulse 79 Pulse Source Pulse Oximeter Pulse Oximetry (%) 98 Oxygen Delivery Method Room Air Intake Visit Reasons: Asthma Chiller Technician Required: No Allergies latex [LATEX] Allergy (Severe, Verified 03/25/24 14:40) RASH passion fruit [PASSION FRUIT] Allergy (Severe, Verified 03/25/24 14:40) ANAPHYLAXIS Penicillins [PCN] Allergy (Severe, Verified 03/25/24 14:40) ANAPHYLAXIS shellfish derived [SHELLFISH DERIVED] Allergy (Severe, Verified 03/25/24 14:40) MOUTH SWELLING, ITCHY acetaminophen [From TYLENOL] Allergy (Mild, Verified 03/25/24 14:40) UNKNOWN ibuprofen [IBUPROFEN] Allergy (Mild, Verified 03/25/24 14:40) HX ULCERS TOLD NOT TO TAKE iodine [IODINE] Allergy (Mild, Verified 03/25/24 14:40) ITCHY lisinopril Adverse Reaction (Severe, Verified 03/25/24 14:40) Rash metformin Adverse Reaction (Severe, Verified 03/25/24 14:40) Rash HPI Comments Details: The patient is a 54 y/o woman with a history of tracheobronchomalacia in addition to asthma. She is status post tracheoplasty in [place] complicated by right-sided pleural effusion and significant right-sided chest discomfort. 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 More recently she did have a CT scan of the chest that [facility] demonstrating a nondisplaced rib fracture. No evidence of any pulmonary emboli. Her chest pain is still moderate severity. Limiting her activity. She is scheduled to have a repeat CT scan of the chest and bronchoscopy in [facility]. She continues to use her respiratory inhalers for her asthma. We did give her further indication about which inhalers she should be using. She is status post bronchoscopy demonstrating patency of the trachea and a successful surgery. Her cough is significantly improved. She continues with respiratory therapy. 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 She did have a visit with the pain specialist. In the meantime the patient needs to be using her CPAP. She states that he needs to be adjusted. She will bring in the next time so we can adjusted the CPAP so she can use it as prescribed. She understands was so help her respiratory status and also decrease cardiovascular risks. 05/13/2023 the patient is here for a pulmonary follow-up visit. Overall the patient had been doing relatively well. She continues to have dyspnea on exertion. She also responds well to the oxygen specially if she is exercising. The patient recently went to [place] and completed a course of thermoplastic. Now she is doing well from an asthma standpoint. She is continues on the Xolair continues with allergy medicine. She did undergo pulmonary function studies today which we personally reviewed in the office. No evidence of any obstructive ventilatory defects. Although her total lung capacity still low at 73%. Indeed is better than before which was 69% and a diffusing capacity is a little better as well. Still this restrictive ventilatory defect does the affect her her symptoms. I do believe that she will benefit from pulmonary rehabilitation at this time and the patient is agreeable to this. In the meantime she is going to continue with current allergy therapy. She also is being monitored off for underlying pulmonary nodules. Her last CT scan was done at [facility] back in January 2023. No evidence of any residual rib fractures that she was wondering. Again pulmonary nodules that will need follow-up. During that visit she also has some stranding in the GI tract due to likely food poisoning. Also, still having daytime drowsiness. EPWORTH score 11/24. 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 Will order an in-lab PSG. Current the patient is doing well she will return to [place] sometime in November. Otherwise will continue to follow her every 4-6 months. 07/31/2023 the patient is here for pulmonary follow-up visit. The patient has been complaining of worsening asthma symptoms. She has been having increasing chest tightness and wheezing. This has been happening now for the last 3 days. She continues with Xolair injections in does have been helpful. Denies any sick contacts. She has been using her respiratory therapy. Her cough is been difficult because is been keeping her up at nighttime. Will go ahead and provide her with cough suppressant therapy. She is concerned because she has a trip planned in at this point with the asthma exacerbation the patient will go ahead and receive Solu-Medrol IM x1. She is going to continue respiratory therapy. If the patient is no better she will call the office for additional steroid therapy. The patient also continues to have significant daytime drowsiness. She did have a sleep study back in the summer demonstrating mild sleep apnea. Patient will try positional therapy. But, if the patient continues to be symptomatic with daytime drowsiness she would benefit from CPAP therapy. 11/28/2023 the patient is here for sick visit. Apparently the beginning of the year she was exposed to her grandson with the flu. Ultimately developed the flu she did call and she did take Tamiflu. Although her respiratory symptoms worsened and she required prednisone and also antibiotics. She will call the office when he stopped the medications to the pharmacy. She continues to have significant asthma chest tightness and wheezing. She is wondering what she can do. She also has chest congestion and difficult to expectorate the phlegm. The patient does have significant wheezing will provide her with Solu-Medrol 125 mg IM x1. The patient also benefit from another course of antibiotics and prednisone. She does have a scheduled bronchoscopy next week for follow-up after thrombo plasty. But at this point I did recommend to the patient that if she continues to have active asthma she should postpone specially if there has no need for any interventions. 03/25/2024 the patient is here for a pulmonary follow-up visit. The patient recently had a upper respiratory illness resulting in an asthma exacerbation. The patient required antibiotics and prednisone. She now has completed the course. She still has hoarseness. She feels some chest congestion but overall better. The patient does not need any additional prednisone antibiotics. If her symptoms worsen she can always consider calling to be reassessed. In the meantime she is changing pharmacy so I sent her all her medicines with the new pharmacy. She also has been using the CPAP at nighttime. The CPAP therapy continues to be affecting beneficial. She does try to use it more than 4 hours a night. She has not been getting supplies. I did send a script to [facility] [place] in order for her to get supplies. I explained to the patient that she needs to make sure she has adequate usage from the CPAP in order to be active with them. In the meantime I did provide her with an N30 eyes small mask that seemed to f it better than the P 10 nasal pillows that was irritating her nares. I will request that new mask to the [facility]. The patient also be following up in [place] soon. She is scheduled to have a PFT a CT scan and possibly a bronchoscopy to have an evaluation post thermoplastic. The patient will request her imaging studies in order for us to be able to review them over here. She was a;so evaluated by allergy and had allergy testing. She continues on the Xolair. Otherwise patient is without other complaints. She will follow-up in 3- 4 months. If any new issues arise she will call for an earlier assessment. 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 CJ (obstructive sleep apnea) CJ on CPAP Diabetes Sjogrens syndrome Lesion of bronchus Pneumonia Asthma Tracheobronchomalacia COVID-19 Surgical History History of bronchoscopy History of endometrial ablation Hx of tubal ligation Family History Mother Asthma Father Diabetes Social History Household Members: Spouse and Children Alcohol intake: never Patient Tobacco Use Status: Former Tobacco user Tobacco use type: Cigarette Years Smoked: 2-3 yrs Second Hand Smoke Exposure: No Review of Systems Const Reports daytime sleepiness, Reports difficulty sleeping and Denies night sweats ENT Denies change in voice, Reports hoarseness, Denies lip swelling, Denies mouth pain, Reports nasal congestion, Reports nasal discharge and Reports sore throat Card Reports chest pain and Reports dyspnea on exertion Resp Denies chest congestion, Reports cough, Denies hemoptysis, Reports pain on inspiration, Reports pain with cough, Reports dyspnea on exertion and Reports wheezing GI Denies abdominal pain Musc Denies no additional complaints and Reports back pain Skin/Breast Denies rash Neuro Denies Neuro-related abnormal movements and Reports paresthesias Psych Denies no additional complaints Anatoliy/Lymph Denies easy bleeding and Denies lymphadenopathy Aller/Immun Denies lip swelling and Reports wheezing Physical Exam Vital Signs: Last Vital Signs Pulse 79 03/25/24 14:39 Pulse Ox 98 03/25/24 14:39 Oxygen Delivery Method Room Air 03/25/24 14:39 BMI result Body Mass Index 28.6 Const General: alert; No in distress HEENT Head: Yes normocephalic Throat: Yes posterior oropharynx abnormal ( erythematous) and Yes postnasal drainage Neck Neck: Yes normal visual inspection, Yes full ROM, Yes no lymphadenopathy and Yes lymphadenopathy Chest Chest palpation & inspection: normal inspection of the chest and tenderness rib (on the right side with areas of tenderness) Resp Effort & Inspection: prolonged expiratory phase Auscultation: wheezes and diminished lung sounds Cardio Rate: regular rate Rhythm: regular rhythm Heart sounds: S1 normal heart sound present and S2 normal heart sound present GI Palpation (GI): Soft to palpation and nontender Auscultation: normal bowel sounds Skin General skin exam: rashes and/or lesions noted Extrem General: No cyanosis and Yes edema Assessment & Plan Assessment & Plan (1) Asthma: Comment: s/p thermoplasty Code(s): J45.909 - Unspecified asthma, uncomplicated Category: Medical Qualifiers: Asthma complication type: with acute exacerbation Asthma persistence: persistent Asthma severity: severe Qualified Code(s): J45.51 - Severe persistent asthma with (acute) exacerbation (2) Chronic restrictive lung disease: Code(s): J98.4 - Other disorders of lung Category: Medical (3) CJ (obstructive sleep apnea): Code(s): G47.33 - Obstructive sleep apnea (adult) (pediatric) Category: Medical (4) Sjogrens syndrome: Code(s): M35.00 - Sjogren syndrome, unspecified Category: Medical Qualifiers: Sjogren's organ involvement: keratoconjunctivitis Qualified Code(s): M35.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 monitor for headaches Continue Breo, incruse Continue APAP Xopenex - The patient cannot tolerate albuterol due to significant adverse effects with tachycardia at tremulousness and agitation continue daliresp PPI reflux diet F/U with allergy F/U in [place] BI with PFTs and CT chest and bronchoscopy F/U 3-4 months Medications: New prednisone PO daily; Take 2 tabs daily x 5 days, then 1 tablet daily x 5 days 10 days 15 tabs 0RF doxycycline hyclate 100 mg PO BID 10 days 20 caps 0RF Changed From Xopenex HFA 45 mcg/actuation (levalbuterol tartrate) 2 puffs PO Q6H PRN 15 grams 0RF for wheezing NS J45.909 - Unspecified asthma, uncomplicated To Xopenex HFA 45 mcg/actuation (levalbuterol tartrate) 2 puffs PO Q6H 30 days PRN 15 grams 11RF for wheezing NS J45.909 - Unspecified asthma, uncomplicated Refilled roflumilast (Daliresp) 500 mcg PO DAILY 30 days 30 tabs 11RF montelukast (Singulair) 10 mg PO DAILY 90 tabs 3RF levalbuterol HCl 1.25 mg (3 mL) inhalation Q6H PRN 300 mL 3RF for wheezing J44.9 - Chronic obstructive pulmonary disease, unspecified codeine-guaifenesin 10-100 mg/5 mL 10 mL PO Q6H 10 days PRN 300 mL 0RF cough Breo Ellipta 200-25 mcg/dose (fluticasone furoate-vilanterol) 1 ea PO DAILY 60 ea 11RF NS J45.909 - Unspecified asthma, uncomplicated umeclidinium 62.5 mcg/actuation (Incruse Ellipta) 1 inh PO DAILY 30 ea 11RF J45.909 - Unspecified asthma, uncomplicated fexofenadine ([facility] [facility]) 180 mg PO DAILY 30 days 30 tabs 10RF Coding Level of Care Code Est Pt Level 4 (87428) Diagnoses Severe persistent asthma with acute exacerbation J45.51 Asthma complication type: with acute exacerbation Asthma persistence: persistent Asthma severity: severe Chronic restrictive lung disease J98.4 CJ (obstructive sleep apnea) G47.33 Sjogren's syndrome with keratoconjunctivitis sicca M35.01 Sjogren's organ involvement: keratoconjunctivitis Tracheobronchomalacia J39.8 Time Spent (min) 18
== END 2024-03-25 15:04 | disposition home or self-care (01) ==
PROVIDERS: PCP Internal Medicine Geriatric Medicine; Referring Provider Internal Medicine Geriatric Medicine; Visit Provider Hospitalist
DX: J45.51 Severe persistent asthma with (acute) exacerbation (principal); J98.4 Other disorders of lung; G47.33 Obstructive sleep apnea (adult) (pediatric); M35.01 Sjogren syndrome with keratoconjunctivitis; J39.8 Other specified diseases of upper respiratory tract
CPT/HCPCS: 99214

== ENCOUNTER → 2024-03-25 14:34 | Outpatient (BNVA) | payer MEDICAID, SELFPAY | PROVIDERS: PCP Internal Medicine Geriatric Medicine; Visit Provider Hospitalist | DX: J45.51 Severe persistent asthma with (acute) exacerbation (principal); J98.4 Other disorders of lung; J39.8 Other specified diseases of upper respiratory tract; G47.33 Obstructive sleep apnea (adult) (pediatric); M35.01 Sjogren syndrome with keratoconjunctivitis | CPT/HCPCS: 99212 ==

== ENCOUNTER 2024-05-17 10:52 | Outpatient (REF) | payer MEDICAID, SELFPAY ==
[2024-05-17 11:46] LABS: MANUAL DIFF FLAG NO
[2024-05-17 11:59] LABS: Hematocrit 41.2 % (37.0-47.0); Hemoglobin 12.9 g/dl (12.0-16.0); Red Blood Count 4.99 X10*6/uL (4.20-5.50); White Blood Count 6.1 X10*3/uL (4.8-10.8)
[2024-05-17 12:00] LABS: Basophils Percent Auto 0.5 % (0-2); Eosinophils Absolute Auto 0.1 X10*3/uL (0.0-0.4); Eosinophils Percent Auto 1.8 % (0-4); Imm Gran Abs Auto 0.02 X10*3/uL (0.00-0.03); Imm Gran Pct Auto 0.3 % (0.0-0.4); Lymphocytes Absolute Auto 2.6 X10*3/uL (1.2-4.9); Lymphocytes Percent Auto 43.1 % (20-40); Mean Corpuscular HGB Conc 31.3 g/dl (31.0-35.0); Mean Corpuscular Hemoglobin 25.9 pg (27.0-33.0); Mean Corpuscular Volume 82.6 fL (80.0-98.0); Mean Platelet Volume 11.4 fL (9.4-12.3); Monocytes Absolute Auto 0.5 X10*3/uL (0.1-1.2); Monocytes Percent Auto 8.5 % (2-11); Neutrophils Absolute Auto 2.8 x10*3/uL (2.0-8.3); Neutrophils Percent Auto 45.8 % (45-73); Platelet Count 233 X10*3/uL (160-400); Red Cell Distribution Width 12.4 % (11.0-16.0)
[2024-05-17 12:43] LABS: Alanine Aminotransferase 22 U/L (0-31); Albumin Level 4.5 g/dL (3.5-5.0); Alkaline Phosphatase 96 U/L (39-117); Anion Gap 12 (12-20); Aspartate Amino Transferase 21 U/L (5-31); Bilirubin Direct 0.4 mg/dL (0.0-0.5); Bilirubin Total 1.6 mg/dL (0.0-1.0); Blood Urea Nitrogen 14 mg/dL (9-16); Calcium 9.9 mg/dL (8.4-10.2); Carbon Dioxide 26 mmol/L (22-29); Chloride 105 mmol/L (96-108); Cholesterol 152 mg/dL (<200); Estimated Glomerular Filt Rate > 60; Glucose Random 97 mg/dL (60-115); HDL Cholesterol 50 mg/dL (>40); LDL Cholesterol Calculated 80 mg/dL (<100); Potassium 3.7 mmol/L (3.3-5.1); Sodium 139 mmol/L (135-145); Total Protein 7.2 g/dL (6.5-8.0); Triglycerides 112 mg/dL (<150)
== END 2024-05-17 10:53 | disposition home or self-care (01) ==
LOC: HO.HHCL 10:52
PROVIDERS: Visit Provider Internal Medicine Geriatric Medicine
DX: E78.5 Hyperlipidemia, unspecified (principal); R11.10 Vomiting, unspecified; R19.7 Diarrhea, unspecified
CPT/HCPCS: 36415; 80053; 80061; 82248; 85025

== ENCOUNTER 2024-05-21 11:15 | Outpatient (RCR) | payer MEDICAID, SELFPAY ==
[2024-02-25 11:08] VITALS: BP 166/95; PULSE 86; RESP 16; TEMP 36.6; O2SAT 97
[2024-02-25] MEDS: Omalizumab 150 MG/ML SYRINGE 300 MG SUBCUT (11:11)
[2024-03-24 10:52] VITALS: BMI 28.6
[2024-03-24 10:53] VITALS: BP 141/94; PULSE 73; RESP 18; TEMP 37.1; O2SAT 98
[2024-03-24] MEDS: Omalizumab 150 MG/ML SYRINGE 300 MG SUBCUT (11:03)
[2024-04-22 10:33] VITALS: BP 134/74; PULSE 73; RESP 18; TEMP 36.3; O2SAT 99
[2024-04-22] MEDS: Omalizumab 150 MG/ML SYRINGE 300 MG SUBCUT (10:36)
[2024-05-21 11:02] VITALS: BP 150/83; PULSE 75; RESP 18; TEMP 36.4; O2SAT 97
[2024-05-21] MEDS: Omalizumab 150 MG/ML SYRINGE 300 MG SUBCUT (11:05)
== END 2024-05-31 12:40 | disposition other institution (70) ==
LOC: HO.INF 11:15
PROVIDERS: Visit Provider Hospitalist
DX: J45.50 Severe persistent asthma, uncomplicated (principal)
CPT/HCPCS: 96372; J2357

== ENCOUNTER 2024-06-04 10:29 | Outpatient (AMB) | payer MEDICAID, SELFPAY ==
[2024-06-04 10:48] VITALS: BP 114/76; PULSE 52; BMI 28.5
--- NOTE | 2024-06-04 10:48 | A.OFFVIS_ITS ---
Vital Signs 06/04/24 10:48 Height 5 ft 5 in Weight 171 lb 8.314 oz BMI 28.5 BP 114/76 Blood Pressure Location Rt brachial Position Sitting Pulse 52 Pulse Source Pulse Oximeter Intake Visit Reasons: SS/CM Intake Note: Patient last seen on 05/12/[address] Trammell present today for follow up. 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: No Accompanied by: Self / Same As Patient Allergies latex [LATEX] Allergy (Severe, Verified 06/04/24 10:52) RASH passion fruit [PASSION FRUIT] Allergy (Severe, Verified 06/04/24 10:52) ANAPHYLAXIS Penicillins [PCN] Allergy (Severe, Verified 06/04/24 10:52) ANAPHYLAXIS shellfish derived [SHELLFISH DERIVED] Allergy (Severe, Verified 06/04/24 10:52) MOUTH SWELLING, ITCHY acetaminophen [From TYLENOL] Allergy (Mild, Verified 06/04/24 10:52) UNKNOWN ibuprofen [IBUPROFEN] Allergy (Mild, Verified 06/04/24 10:52) HX ULCERS TOLD NOT TO TAKE iodine [IODINE] Allergy (Mild, Verified 06/04/24 10:52) ITCHY lisinopril Adverse Reaction (Severe, Verified 06/04/24 10:52) Rash metformin Adverse Reaction (Severe, Verified 06/04/24 10:52) Rash Medication List - Last Reconciled 06/04/24 by Max Dupont MD albuterol sulfate 90 mcg/actuation 2 puffs inhalation Q6H PRN [Atarax 50 mg PRN] azithromycin 500 mg PO DAILY 5 days benzonatate 200 mg PO BID PRN 30 days biotin 5 mg PO DAILY 30 days Breo Ellipta 200-25 mcg/dose (fluticasone furoate-vilanterol) 1 ea PO DAILY NS chlorhexidine gluconate 0.12% 15 mL buccal BID 14 days cholecalciferol (vitamin D3) 25 mcg PO DAILY 30 days [clonazepam ] codeine-guaifenesin 10-100 mg/5 mL 10 mL PO Q6H PRN 10 days codeine-guaifenesin 10-100 mg/5 mL 10 mL PO Q4H PRN 10 days cyclobenzaprine 10 mg PO TID PRN 10 days dextromethorphan-guaifenesin 10-100 mg/5 mL (Antitussive DM) 10 mL PO Q6H PRN 14 days doxycycline hyclate 100 mg PO BID 10 days epinephrine (EpiPen 2-Yohan) 0.3 mg (0.3 mL) IM Q10M PRN 30 days fexofenadine ([place] [facility]) 180 mg PO DAILY 30 days furosemide (Lasix) 20 mg PO DAILY gabapentin 400 mg PO TID hydrocodone-chlorpheniramine 10-8 mg/5 mL 5 mL PO Q12H 30 days hydroxychloroquine 200 mg orally; inhalational spacing device (Vortex Holding Chamber) As directed insulin glargine (Lantus Solostar U-100 Insulin) 25 units subcut QAM insulin lispro (Humalog U-100 Insulin) 1 sliding scale dose subcut USEASDIRECTD levalbuterol HCl 1.25 mg (3 mL) inhalation Q6H PRN lidocaine 5% (Lidoderm) 1 patch topical DAILY 30 days loratadine (Claritin) 10 mg PO DAILY 30 days melatonin 5 mg PO BEDTIME PRN montelukast (Singulair) 10 mg PO DAILY nebulizers As directed omalizumab (Xolair) 300 mg subcut Q4W 30 days omeprazole 40 mg PO BID 30 days ondansetron HCl (Zofran) 4 mg PO Q8H PRN 10 days oseltamivir (Tamiflu) 75 mg PO BID 5 days oxycodone 15 mg PO Q8H PRN [address] (Protonix) 40 mg PO DAILY 30 days pilocarpine HCl 5 mg PO TID prednisone PO daily; Take 2 tabs daily x 5 days, then 1 tablet daily x 5 days 10 days prednisone PO daily; Take 2 tabs daily x 5 days, then 1 tablet daily x 5 days 10 days roflumilast (Daliresp) 500 mcg PO DAILY 30 days sodium chloride 3% 4 mL inhalation BID 30 days umeclidinium 62.5 mcg/actuation (Incruse Ellipta) 1 inh PO DAILY Xopenex HFA 45 mcg/actuation (levalbuterol tartrate) 2 puffs PO Q6H PRN 30 days NS zolpidem 10 mg PO BEDTIME PRN 30 days HPI Comments Details: This is a 54-year-old female with Sjogren's syndrome who presents for follow-up. Patient states that she gets episodes of joint swelling and pain, especially of her hands and other areas. She also has diffuse body aches. She is compliant with hydroxychloroquine 200 mg Twice daily and follows up regularly with structural steel engineer. She follows up regularly with Dr. Edgar. She continues to have dry eyes but she uses a mouthwash and symptoms are fairly well controlled. She continues to have dry eyes and follows up with her structural steel engineer. Last visit by Dr. Trammell 04/2023: The patient returns for evaluation of what is thought to be Sjogren's syndrome. She recalls many years of dry eyes and dry mouth symptoms. She had a positive SSA antibody in the past and was given the label of Sjogren's syndrome. She has also had problems with episodes of cough, shortness of breath, chest pain and sputum production. She had evidence for restrictive and obstructive lung disease. She was eventually treated in 2019 with tracheobronchial plasty for tracheal bronchomalacia. That apparently has improved her symptoms but she still gets episodes of wheezing and shortness of breath and takes meds for asthma. She says she was given no reason as to why she had this problem with the airways. She also has a widespread pain syndrome. This has been judged to be fibromyalgia in the past. She does describe widespread pain and swelling in the knees, hands, wrists, and ankles. She does not recall that treatment with prednisone for her lung disease helped her joints. She has had arthroscopy on the right knee showing meniscal degenerative pathology. The arthroscopy did help her symptoms. The right knee does get oc casionally swollen. She takes gabapentin 400 mg 3 times a day and thinks it is somewhat helpful. It does not sound like she has had any history of neuropathy, skin rash, ear swelling or sinus disease. Review of the record looks like she was originally prescribed a hydroxychloroquine back in 2018. She seems like she has mostly been taking it regularly. [facility] Medical History Laryngitis Dysphagia Rib fracture Rib fracture Cough Chronic restrictive lung disease [id number] syndrome CJ (obstructive sleep apnea) CJ on CPAP Diabetes Sjogrens syndrome Lesion of bronchus Pneumonia Asthma Tracheobronchomalacia COVID-19 Surgical History History of carpal tunnel surgery of left wrist History of bronchoscopy History of endometrial ablation Hx of tubal ligation Family History Mother Asthma Father Diabetes Social History Household Members: Spouse and Children Alcohol intake: never Patient Tobacco Use Status: Former Tobacco user Tobacco use type: Cigarette Years Smoked: 2-3 yrs Second Hand Smoke Exposure: No Review of Systems Eyes Reports dry eyes ENT Reports dry mouth Musc Reports myalgias, Reports arthralgias, Reports joint swelling and Reports stiffness Physical Exam Vital Signs: Last Vital Signs Pulse 52 06/04/24 10:48 BP 114/76 06/04/24 10:48 BMI result Body Mass Index 28.5 Const General: cooperative, healthy appearing and comfortable Nutritional Appearance: overweight Orientation/consciousness: patient oriented x3 Limitations: no limitations HEENT Mouth: moist mucous membranes Resp Effort & Inspection: normal respiratory effort and able to speak in complete sentences Auscultation: clear to auscultation bilaterally Cardio Rate: regular rate Skin General skin exam: no rashes or lesions noted Neuro General: patient oriented x3 Extrem Other: No active synovitis strength numerous fibromyalgia tender points Normal nailfold capillaroscopy Results Reviewed Results Reviewed: Lab work in the past has shown a positive SSA antibody but negative SSB antibody, rheumatoid factor, NIKHIL and CCP antibody. Laboratory Tests 12/18/20 12/18/20 11/29/21 09:38 Unknown 10:08 WBC 6.9 Hgb 12.7 Plt Count 233 ESR Creatinine C-Reactive Protein 0.45 Protein/Creatinin Ratio 0.07 11/29/21 11/29/21 10:08 10:08 WBC Hgb Plt Count ESR 5 Creatinine 0.89 C-Reactive Protein Protein/Creatinin Ratio Assessment & Plan Assessment & Plan (1) Sjogrens syndrome: Comment: ++SSa dx around 2016 HCQ 2017 Code(s): M35.00 - Sjogren syndrome, unspecified Category: Medical Qualifiers: Sjogren's organ involvement: keratoconjunctivitis Qualified Code(s): M35.01 - Sicca syndrome with keratoconjunctivitis Plan: This is a 54-year-old female with Sjogren's syndrome who presents for follow-up. This is her 1st visit with me. She saw multiple rheumatologists in the past. Sicca symptoms are reasonably well controlled with Biotene mouthwash. States that she continues to have eye dryness. Advised patient to follow-up with her structural steel engineer Majority of patient's symptoms are likely due to fibromyalgia, Patient does mention symptoms that are suspicious for inflammatory arthritis however patient is on prednisone now for an asthma exacerbation and it can mask any inflammatory arthritis Continue with hydroxychloroquine but the dose is to be adjusted 200 mg Twice daily x6 days a week and 1 tab once daily x1 day a week Labs before next visit in 6 months (2) Fibromyalgia: Code(s): M79.7 - Fibromyalgia Category: Medical Plan: Follow-up with PCP (3) Long-term use of hydroxychloroquine: Code(s): Z79.899 - Other intermediate teacher (current) drug therapy Category: Medical Plan: Discussed risk of retinopathy associated with hydroxychloroquine. Advised patient to follow-up regularly with Ophthalmology Plan I spent 47 minutes reviewing patient's chart, reviewing old chart from old EMR, evaluating patient, ordering diagnostic workup, counseling patient and documenting in the chart Orders: Orders Complement C3 Today M32.9 - Systemic lupus erythematosus, unspecified C Reactive Protein Today M32.9 - Systemic lupus erythematosus, unspecified Erythrocyte Sedimentation Rate Today M32.9 - Systemic lupus erythematosus, unspecified UA w Microscopic Today M32.9 - Systemic lupus erythematosus, unspecified Complete Blood Count Auto Diff Today M32.9 - Systemic lupus erythematosus, unspecified Comprehensive Met. Panel Today M32.9 - Systemic lupus erythematosus, unspecified Protein Electrophoresis, Serum Today M32.9 - Systemic lupus erythematosus, unspecified Hepatitis A,B,C Profile Today Z11.59 - Encounter for screening for other viral diseases Anti DNA DS Antibody Today M32.9 - Systemic lupus erythematosus, unspecified Complement C4 Today M32.9 - Systemic lupus erythematosus, unspecified DNA Double Stranded-Crithidia Today M32.9 - Systemic lupus erythematosus, unspecified Protein Creatinine Ratio, Ur Today M32.9 - Systemic lupus erythematosus, unspecified Immunofixation Pnl, Serum Today M32.9 - Systemic lupus erythematosus, unspecified T Spot TB Today Z11.7 - Encounter for testing for latent tuberculosis infection Medications: Changed From hydroxychloroquine 200 mg PO BID 180 tabs 0RF M35.01 - Sjogren syndrome with keratoconjunctivitis To hydroxychloroquine 200 mg orally; M35.01 - Sjogren syndrome with keratoconjunctivitis Coding Level of Care Code Est Pt Level 5 (80873) Diagnoses Sjogren's syndrome with keratoconjunctivitis sicca M35.01 Sjogren's organ involvement: keratoconjunctivitis Fibromyalgia M79.7 Long-term use of hydroxychloroquine Z79.899
== END 2024-06-04 11:26 | disposition home or self-care (01) ==
PROVIDERS: PCP Internal Medicine Geriatric Medicine; Visit Provider Student in an Organized Health Care Education/Training Program
DX: M35.01 Sjogren syndrome with keratoconjunctivitis (principal); M79.7 Fibromyalgia; Z79.899 Other long term (current) drug therapy
CPT/HCPCS: 99215

== ENCOUNTER → 2024-06-04 10:29 | Outpatient (BNVA) | payer MEDICAID, SELFPAY | PROVIDERS: PCP Internal Medicine Geriatric Medicine; Visit Provider Student in an Organized Health Care Education/Training Program | DX: M35.01 Sjogren syndrome with keratoconjunctivitis (principal); M79.7 Fibromyalgia; M32.9 Systemic lupus erythematosus, unspecified; Z79.899 Other long term (current) drug therapy | CPT/HCPCS: 99212 ==

== ENCOUNTER 2024-06-14 12:53 | Outpatient (AMB) | payer MEDICAID, SELFPAY ==
[2024-06-14 12:57] VITALS: PULSE 78; O2SAT 99; BMI 28.3
--- NOTE | 2024-06-14 12:57 | A.OFFVIS_ITS ---
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 Allergies latex [LATEX] Allergy (Severe, Verified 06/14/24 12:58) RASH passion fruit [PASSION FRUIT] Allergy (Severe, Verified 06/14/24 12:58) ANAPHYLAXIS Penicillins [PCN] Allergy (Severe, Verified 06/14/24 12:58) ANAPHYLAXIS shellfish derived [SHELLFISH DERIVED] Allergy (Severe, Verified 06/14/24 12:58) MOUTH SWELLING, ITCHY acetaminophen [From TYLENOL] Allergy (Mild, Verified 06/14/24 12:58) UNKNOWN ibuprofen [IBUPROFEN] Allergy (Mild, Verified 06/14/24 12:58) HX ULCERS TOLD NOT TO TAKE iodine [IODINE] Allergy (Mild, Verified 06/14/24 12:58) ITCHY lisinopril Adverse Reaction (Severe, Verified 06/14/24 12:58) Rash metformin Adverse Reaction (Severe, Verified 06/14/24 12:58) Rash HPI Comments Details: The patient is a 54 y/o woman with a history of tracheobronchomalacia in addition to asthma. She is status post tracheoplasty in [place] complicated by right-sided pleural effusion and significant right-sided chest discomfort. 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 More recently she did have a CT scan of the chest that [facility] demonstrating a nondisplaced rib fracture. No evidence of any pulmonary emboli. Her chest pain is still moderate severity. Limiting her activity. She is scheduled to have a repeat CT scan of the chest and bronchoscopy in [facility]. She continues to use her respiratory inhalers for her asthma. We did give her further indication about which inhalers she should be using. She is status post bronchoscopy demonstrating patency of the trachea and a successful surgery. Her cough is significantly improved. She continues with respiratory therapy. 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 She did have a visit with the pain specialist. In the meantime the patient needs to be using her CPAP. She states that he needs to be adjusted. She will bring in the next time so we can adjusted the CPAP so she c an use it as prescribed. She understands was so help her respiratory status and also decrease cardiovascular risks. 05/13/2023 the patient is here for a pulmonary follow-up visit. Overall the patient had been doing relatively well. She continues to have dyspnea on exertion. She also responds well to the oxygen specially if she is exercising. The patient recently went to [place] and completed a course of thermoplastic. Now she is doing well from an asthma standpoint. She is continues on the Xolair continues with allergy medicine. She did undergo pulmonary function studies today which we personally reviewed in the office. No evidence of any obstructive ventilatory defects. Although her total lung capacity still low at 73%. Indeed is better than before which was 69% and a diffusing capacity is a little better as well. Still this restrictive ventilatory defect does the affect her her symptoms. I do believe that she will benefit from pulmonary rehabilitation at this time and the patient is agreeable to this. In the meantime she is going to continue with current allergy therapy. She also is being monitored off for underlying pulmonary nodules. Her last CT scan was done at [facility] back in January 2023. No evidence of any residual rib fractures that she was wondering. Again pulmonary nodules that will need follow-up. During that visit she also has some stranding in the GI tract due to likely food poisoning. Also, still having daytime drowsiness. EPWORTH score 11/24. 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 Will order an in-lab PSG. Current the patient is doing well she will return to [place] sometime in November. Otherwise will continue to follow her every 4-6 months. 07/31/2023 the patient is here for pulmonary follow-up visit. The patient has been complaining of worsening asthma symptoms. She has been having increasing chest tightness and wheezing. This has been happening now for the last 3 days. She continues with Xolair injections in does have been helpful. Denies any sick contacts. She has been using her respiratory therapy. Her cough is been difficult because is been keeping her up at nighttime. Will go ahead and provide her with cough suppressant therapy. She is concerned because she has a trip planned in at this point with the asthma exacerbation the patient will go ahead and receive Solu-Medrol IM x1. She is going to continue respiratory therapy. If the patient is no better she will call the office for additional steroid therapy. The patient also continues to have significant daytime drowsiness. She did have a sleep study back in the summer demonstrating mild sleep apnea. Patient will try positional therapy. But, if the patient continues to be symptomatic with daytime drowsiness she would benefit from CPAP therapy. 11/28/2023 the patient is here for sick visit. Apparently the beginning of the year she was exposed to her grandson with the flu. Ultimately developed the flu she did call and she did take Tamiflu. Although her respiratory symptoms worsened and she required prednisone and also antibiotics. She will call the office when he stopped the medications to the pharmacy. She continues to have significant asthma chest tightness and wheezing. She is wondering what she can do. She also has chest congestion and difficult to expectorate the phlegm. The patient does have significant wheezing will provide her with Solu-Medrol 125 mg IM x1. The patient also benefit from another course of antibiotics and prednisone. She does have a scheduled bronchoscopy next week for follow-up after thrombo plasty. But at this point I did recommend to the patient that if she continues to have active asthma she should postpone specially if there has no need for any interventions. 03/25/2024 the patient is here for a pulmonary follow-up visit. The patient recently had a upper respiratory illness resulting in an asthma exacerbation. The patient required antibiotics and prednisone. She now has completed the course. She still has hoarseness. She feels some chest congestion but overall better. The patient does not need any additional prednisone antibiotics. If her symptoms worsen she can always consider calling to be reassessed. In the meantime she is changing pharmacy so I sent her all her medicines with the new pharmacy. She also has been using the CPAP at nighttime. The CPAP therapy continues to be affecting beneficial. She does try to use it more than 4 hours a night. She has not been getting supplies. I did send a script to [facility] in order for her to get supplies. I explained to the patient that she needs to make sure she has adequate usage from the CPAP in order to be active with them. In the meantime I did provide her with an N30 eyes small mask that seemed to fit better than the P 10 nasal pillows that was irritating her nares. I will request that new mask to the [employer]. The patient also be following up in [place] soon. She is scheduled to have a PFT a CT scan and possibly a bronchoscopy to have an evaluation post thermoplastic. The patient will request her imaging studies in order for us to be able to review them over here. She was a;so evaluated by allergy and had allergy testing. She continues on the Xolair. Otherwise patient is without other complaints. She will follow-up in 3- 4 months. If any new issues arise she will call for an earlier assessment. 06/14/2024 the patient is here for a sick visit. Apparently patient was in his usual state health until this weekend started developing some difficulty with her breathing. [place] like her throat was closing up. [place] some difficulty swallowing. Although no sore throat. She continue using her respiratory therapy. As far as exposures she had been out during the day and pureed. There was positive sick contacts although she does not have any Viral syndrome symptoms. She also states that recently her Xolair was increased and she is not sure if that has anything to do with it. She does have an EpiPen although is not up today and is actually . I will send her new EpiPen to the pharmacy. She knows when to use it and how to use it. The patient does have some swelling on the throat area. I do not see any evidence of any angioedema or any edema of the uvula. I also do not appreciate any stridor at this time. Will go ahead and treat her with some prednisone to decrease the inflammatory changes and also will treat her for the possibility of bacterial pharyngitis. The patient be following up with her production sanitizer in a couple weeks at which point she can continue to be evaluated as far as symptoms. But at this point she has been on Xolair for a long period of time and she has done well on it and I do not believe that the increasing the medication has any evidence of any adverse effects at this time. [facility] Medical History Laryngitis Dysphagia Rib fracture Rib fracture Cough Chronic restrictive lung disease [id number] syndrome CJ (obstructive sleep apnea) JC on CPAP Diabetes Sjogrens syndrome Lesion of bronchus Pneumonia Asthma Tracheobronchomalacia COVID-19 Surgical History History of carpal tunnel surgery of left wrist History of bronchoscopy History of endometrial ablation Hx of tubal ligation Family History Mother Asthma Father Diabetes Social History Household Members: Spouse and Children Alcohol intake: never Patient Tobacco Use Status: Former Tobacco user Tobacco use type: Cigarette Years Smoked: 2-3 yrs Second Hand Smoke Exposure: No Review of Systems Const Reports daytime sleepiness, Reports difficulty sleeping and Denies night sweats ENT Denies change in voice, Reports dysphagia, Denies lip swelling, Denies mouth pain, Reports nasal congestion, Reports nasal discharge and Reports sore throat Card Reports chest pain, Reports dyspnea and Reports dyspnea on exertion Resp Denies chest congestion, Reports cough, Denies hemoptysis, Denies pain on inspiration, Denies pain with cough, Reports dyspnea, Reports dyspnea on exertio n and Reports wheezing GI Denies abdominal pain and Reports dysphagia Musc Denies no additional complaints and Reports back pain Skin/Breast Denies rash Neuro Denies Neuro-related abnormal movements and Reports paresthesias Psych Denies no additional complaints Anatoliy/Lymph Denies easy bleeding and Denies lymphadenopathy Aller/Immun Denies lip swelling and Reports wheezing Physical Exam Vital Signs: Last Vital Signs Pulse 78 06/14/24 12:57 Pulse Ox 99 06/14/24 12:57 Oxygen Delivery Method Room Air 06/14/24 12:57 BMI result Body Mass Index 28.3 Const General: alert; No in distress HEENT Head: Yes normocephalic Throat: Yes posterior oropharynx abnormal ( erythematous), Yes postnasal drainage and No uvular edema Neck Neck: Yes normal visual inspection, Yes full ROM, Yes no lymphadenopathy and Yes lymphadenopathy Chest Chest palpation & inspection: normal inspection of the chest and tenderness rib (on the right side with areas of tenderness) Resp Effort & Inspection: prolonged expiratory phase Auscultation: wheezes and diminished lung sounds Cardio Rate: regular rate Rhythm: regular rhythm Heart sounds: S1 normal heart sound present and S2 normal heart sound present GI Palpation (GI): Soft to palpation and nontender Auscultation: normal bowel sounds Skin General skin exam: rashes and/or lesions noted Extrem General: No cyanosis and Yes edema Assessment & Plan Assessment & Plan (1) Pharyngitis: Code(s): J02.9 - Acute pharyngitis, unspecified Category: Medical Qualifiers: Pharyngitis/tonsillitis etiology: other specified organisms Qualified Code(s): J02.8 - Acute pharyngitis due to other specified organisms (2) Asthma: Comment: s/p thermoplasty Code(s): J45.909 - Unspecified asthma, uncomplicated Category: Medical Qualifiers: Asthma complication type: with acute exacerbation Asthma persistence: persistent Asthma severity: severe Qualified Code(s): J45.51 - Severe persistent asthma with (acute) exacerbation (3) Chronic restrictive lung disease: Code(s): J98.4 - Other disorders of lung Category: Medical (4) CJ (obstructive sleep apnea): Code(s): G47.33 - Obstructive sleep apnea (adult) (pediatric) Category: Medical (5) Sjogrens syndrome: Comment: ++SSa dx around 2016 HCQ 2017 Code(s): M35.00 - Sjogren syndrome, unspecified Category: Medical Qualifiers: Sjogren's organ involvement: keratoconjunctivitis Qualified Code(s): M35.01 - Sicca syndrome with keratoconjunctivitis (6) Tracheobronchomalacia: Comment: 2019: treated with tracheoplasty in [place] Code(s): J39.8 - Other specified diseases of upper respiratory tract Category: Medical Plan cough suppressant Prednisone taper start Clindamycin continue Xolair. monitor for headaches Continue Breo, incruse Continue APAP Xopenex - The patient cannot tolerate albuterol due to significant adverse effects with tachycardia at tremulousness and agitation continue daliresp PPI reflux diet F/U with allergy F/U 3-4 months Medications: New clindamycin HCl 300 mg PO TID 30 caps 0RF 10 days Refilled epinephrine (EpiPen 2-Yohan) for 2 doses 0.3 mg (0.3 mL) IM Q10M PRN 2 ea 6RF anaphylaxis 30 days J45.40 - Moderate persistent asthma, uncomplicated prednisone PO daily; Take 2 tabs daily x 5 days, then 1 tablet daily x 5 days 15 tabs 0RF 10 days codeine-guaifenesin 10-100 mg/5 mL 10 mL PO Q6H PRN 300 mL 0RF cough 10 days Coding Level of Care Code Est Pt Level 4 (59548) Diagnoses Pharyngitis due to other organism J02.8 Pharyngitis/tonsillitis etiology: other specified organisms Severe persistent asthma with acute exacerbation J45.51 Asthma complication type: with acute exacerbation Asthma persistence: persistent Asthma severity: severe Chronic restrictive lung disease J98.4 CJ (obstructive sleep apnea) G47.33 Sjogren's syndrome with keratoconjunctivitis sicca M35.01 Sjogren's organ involvement: keratoconjunctivitis Tracheobronchomalacia J39.8 Time Spent (min) 16
== END 2024-06-14 13:17 | disposition home or self-care (01) ==
PROVIDERS: PCP Internal Medicine Geriatric Medicine; Visit Provider Hospitalist
DX: J02.8 Acute pharyngitis due to other specified organisms (principal); J45.51 Severe persistent asthma with (acute) exacerbation; J98.4 Other disorders of lung; G47.33 Obstructive sleep apnea (adult) (pediatric); M35.01 Sjogren syndrome with keratoconjunctivitis; J39.8 Other specified diseases of upper respiratory tract
CPT/HCPCS: 99214

== ENCOUNTER → 2024-06-14 12:53 | Outpatient (BNVA) | payer MEDICAID, SELFPAY | PROVIDERS: PCP Internal Medicine Geriatric Medicine; Visit Provider Hospitalist | DX: J02.8 Acute pharyngitis due to other specified organisms (principal); J45.51 Severe persistent asthma with (acute) exacerbation; J98.4 Other disorders of lung; J39.8 Other specified diseases of upper respiratory tract; G47.33 Obstructive sleep apnea (adult) (pediatric); M35.01 Sjogren syndrome with keratoconjunctivitis | CPT/HCPCS: 99212 ==

== ENCOUNTER 2024-07-20 08:16 | Outpatient (REF) | payer MEDICAID, SELFPAY ==
[2024-07-20 08:41] LABS: MANUAL DIFF FLAG NO
[2024-07-20 09:36] LABS: Basophils Absolute Auto 0.1 X10*3/uL (0.0-0.2); Basophils Percent Auto 1.2 % (0-2); Eosinophils Absolute Auto 0.1 X10*3/uL (0.0-0.4); Eosinophils Percent Auto 1.7 % (0-4); Hematocrit 39.2 % (37.0-47.0); Hemoglobin 12.1 g/dl (12.0-16.0); Imm Gran Abs Auto 0.02 X10*3/uL (0.00-0.03); Imm Gran Pct Auto 0.3 % (0.0-0.4); Lymphocytes Absolute Auto 2.2 X10*3/uL (1.2-4.9); Lymphocytes Percent Auto 36.7 % (20-40); Mean Corpuscular HGB Conc 30.9 g/dl (31.0-35.0); Mean Corpuscular Hemoglobin 25.2 pg (27.0-33.0); Mean Corpuscular Volume 81.7 fL (80.0-98.0); Mean Platelet Volume 11.3 fL (9.4-12.3); Monocytes Absolute Auto 0.4 X10*3/uL (0.1-1.2); Monocytes Percent Auto 7.1 % (2-11); Neutrophils Absolute Auto 3.2 x10*3/uL (2.0-8.3); Platelet Count 230 X10*3/uL (160-400); Red Cell Distribution Width 12.3 % (11.0-16.0); White Blood Count 5.9 X10*3/uL (4.8-10.8)
[2024-07-20 10:23] LABS: Erythrocyte Sedimentation Rate 7 MM/HR (0-20)
[2024-07-20 10:28] LABS: Alanine Aminotransferase 17 U/L (0-31); Albumin Level 4.2 g/dL (3.5-5.0); Alkaline Phosphatase 102 U/L (39-117); Anion Gap 13 (12-20); Aspartate Amino Transferase 15 U/L (5-31); Bilirubin Total 0.8 mg/dL (0.0-1.0); Blood Urea Nitrogen 19 mg/dL (9-16); C Reactive Protein 0.17 mg/dL (< or = 0.50); Calcium 9.6 mg/dL (8.4-10.2); Carbon Dioxide 24 mmol/L (22-29); Chloride 109 mmol/L (96-108); Estimated Glomerular Filt Rate > 60; Glucose Random 142 mg/dL (60-115); Potassium 3.6 mmol/L (3.3-5.1); Sodium 142 mmol/L (135-145); Total Protein 6.9 g/dL (6.5-8.0)
[2024-07-20 10:33] LABS: Appearance Urine Clear; Color Urine Yellow; Glucose Urine UA Negative (Negative); Leukocyte Esterase Urine Negative (Negative); Nitrite Urine Negative (Negative); PH 5.5 (5.0-9.0); Specific Gravity - Urine >= 1.030 (1.005-1.025); UMIC TRIGGER UA YES; Urine Blood Negative (Negative); Urine Ketones Negative (Negative); Urine Protein 30 (1+) mg/dL (Neg-Trace)
[2024-07-20 10:48] LABS: Bacteria Urine 1+ (None Seen); Calcium Oxalate Crystals Urine Present; Hyaline Casts Urine 0-2 /LPF (0-2); RBC Urine 0-2 /HPF (0-2); WBC Urine 0-5 /HPF (0-5)
[2024-07-20 10:52] LABS: HBS Num1 61.37 mIU/mL (0-7.99); HBc Num1 0.09 S/CO (0.00-0.79); Hepatitis A Antibody IgM 0.14 Index (0-0.79); Hepatitis B Core Antibody Nonreactive (Nonreactive); Hepatitis B Surface Antigen Negative (Negative); ~HepC Num1 0.12 S/CO (0.00-0.79); ~Hepatitis A Antibody IgM Nonreactive (Nonreactive); ~Hepatitis B Surface Antibody REACTIVE (Nonreactive); ~Hepatitis C Antibody Nonreactive (Nonreactive)
[2024-07-20 11:11] LABS: Creatinine Urine 219.96 mg/dL; Protein/Creatinine Ratio, Ur 0.13 (<0.2); Total Protein Urine Random 29 mg/dL (<12)
[2024-07-21 14:34] LABS: Complement C3 78 mg/dL (83-193)
[2024-07-21 15:19] LABS: Anti DNA DS Antibody <1 IU/mL
[2024-07-22 22:34] LABS: IgA 212 mg/dL (47-310); IgG 889 mg/dL (600-1640); IgM 129 mg/dL (50-300)
[2024-07-23 09:44] LABS: Prot Elec - Albumin 4.2 g/dL (3.8-4.8); Prot Elec - Alpha1 0.3 g/dL (0.2-0.3); Prot Elec - Alpha2 0.6 g/dL (0.5-0.9); Prot Elec - Beta 1 0.4 g/dL (0.4-0.6); Prot Elec - Beta 2 0.4 g/dL (0.2-0.5); Prot Elec - Gamma 0.8 g/dL (0.8-1.7); Prot Elec - Total Protein 6.6 g/dL (6.1-8.1)
[2024-07-23 10:48] LABS: TS Negative Control Passed; TS Panel A 0; TS Panel B 0; TS Positive Control Passed; TSpotTB Negative (Negative)
[2024-07-26 18:58] LABS: Immunoglobulin E 441 kU/L (<OR=114)
[2024-07-27 06:13] LABS: DNAds, Crithidia Antibody Negative (Negative)
== END 2024-07-20 08:17 | disposition home or self-care (01) ==
LOC: HO.LAB 08:16
PROVIDERS: Student in an Organized Health Care Education/Training Program; PCP Internal Medicine Geriatric Medicine; Visit Provider Hospitalist
DX: J45.51 Severe persistent asthma with (acute) exacerbation (principal); J45.909 Unspecified asthma, uncomplicated; M32.9 Systemic lupus erythematosus, unspecified; Z11.7 Encounter for testing for latent tuberculosis infection; Z11.59 Encounter for screening for other viral diseases
CPT/HCPCS: 36415; 80053; 81001; 82570; 82784; 82785; 84156; 84165; 85025; 85652; 86140; 86160; 86225; 86255; 86334; 86481; 86704; 86706; 86709; 86803; 87340

== ENCOUNTER 2024-07-26 13:53 | Outpatient (AMB) | payer MEDICAID, SELFPAY ==
[2024-07-26 14:09] VITALS: BP 124/78; PULSE 75; O2SAT 98; BMI 28.3
--- NOTE | 2024-07-26 14:09 | A.OFFVIS_ITS ---
Vital Signs 07/26/24 14:09 Height 5 ft 5 in Weight 169 lb 15.622 oz BMI 28.3 BP 124/78 Blood Pressure Location Rt brachial Position Sitting Pulse 75 Pulse Source Pulse Oximeter Pulse Oximetry (%) 98 Oxygen Delivery Method Room Air Intake Visit Reasons: Lab Results/Shortness of Breath Bi Report Developer Required: No Allergies latex [LATEX] Allergy (Severe, Verified 07/26/24 14:12) RASH passion fruit [PASSION FRUIT] Allergy (Severe, Verified 07/26/24 14:12) ANAPHYLAXIS Penicillins [PCN] Allergy (Severe, Verified 07/26/24 14:12) ANAPHYLAXIS shellfish derived [SHELLFISH DERIVED] Allergy (Severe, Verified 07/26/24 14:12) MOUTH SWELLING, ITCHY acetaminophen [From TYLENOL] Allergy (Mild, Verified 07/26/24 14:12) UNKNOWN ibuprofen [IBUPROFEN] Allergy (Mild, Verified 07/26/24 14:12) HX ULCERS TOLD NOT TO TAKE iodine [IODINE] Allergy (Mild, Verified 07/26/24 14:12) ITCHY lisinopril Adverse Reaction (Severe, Verified 07/26/24 14:12) Rash metformin Adverse Reaction (Severe, Verified 07/26/24 14:12) Rash HPI Comments Details: The patient is a 54 y/o woman with a history of tracheobronchomalacia in addition to asthma. She is status post tracheoplasty in [place] complicated by right-sided pleural effusion and significant right-sided chest discomfort. 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 More recently she did have a CT scan of the chest that [facility] demonstrating a nondisplaced rib fracture. No evidence of any pulmonary emboli. Her chest pain is still moderate severity. Limiting her activity. She is scheduled to have a repeat CT scan of the chest and bronchoscopy in [facility]. She continues to use her respiratory inhalers for her asthma. We did give her further indication about which inhalers she should be using. She is status post bronchoscopy demonstrating patency of the trachea and a successful surgery. Her cough is significantly improved. She continues with respiratory therapy. 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 She did have a visit with the pain specialist. In the meantime the patient needs to be using her CPAP. She states that he needs to be adjusted. She will bring in the next time so we can adjusted the CPAP so she can use it as prescribed. She understands was so help her respiratory status and also decrease cardiovascular risks. 05/13/2023 the patient is here for a pulmonary follow-up visit. Overall the patient had been doing relatively well. She continues to have dyspnea on exertion. She also responds well to the oxygen specially if she is exercising. The patient recently went to [place] and completed a course of thermoplastic. Now she is doing well from an asthma standpoint. She is continues on the Xolair continues with allergy medicine. She did undergo pulmonary function studies today which we personally reviewed in the office. No evidence of any obstructive ventilatory defects. Although her total lung capacity still low at 73%. Indeed is better than before which was 69% and a diffusing capacity is a little better as well. Still this restrictive ventilatory defect does the affect her her symptoms. I do believe that she will benefit from pulmonary rehabilitation at this time and the patient is agreeable to this. In the meantime she is going to continue with current allergy therapy. She also is being monitored off for underlying pulmonary nodules. Her last CT scan was done at [facility] back in January 2023. No evidence of any residual rib fractures that she was wondering. Again pulmonary nodules that will need follow-up. During that visit she also has some stranding in the GI tract due to likely food poisoning. Also, still having daytime drowsiness. EPWORTH score 11/24. 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 Will order an in-lab PSG. Current the patient is doing well she will return to [place] sometime in November. Otherwise will continue to follow her every 4-6 months. 07/31/2023 the patient is here for pulmonary follow-up visit. The patient has been complaining of worsening asthma symptoms. She has been having increasing chest tightness and wheezing. This has been happening now for the last 3 days. She continues with Xolair injections in does have been helpful. Denies any sick contacts. She has been using her respiratory therapy. Her cough is been difficult because is been keeping her up at nighttime. Will go ahead and provide her with cough suppressant therapy. She is concerned because she has a trip planned in at this point with the asthma exacerbation the patient will go ahead and receive Solu-Medrol IM x1. She is going to continue respiratory therapy. If the patient is no better she will call the office for additional steroid therapy. The patient also continues to have significant daytime drowsiness. She did have a sleep study back in the summer demonstrating mild sleep apnea. Patient will try positional therapy. But, if the patient continues to be symptomatic with daytime drowsiness she would benefit from CPAP therapy. 11/28/2023 the patient is here for sick visit. Apparently the beginning of the year she was exposed to her grandson with the flu. Ultimately developed the flu she did call and she did take Tamiflu. Although her respiratory symptoms worsened and she required prednisone and also antibiotics. She will call the office when he stopped the medications to the pharmacy. She continues to have significant asthma chest tightness and wheezing. She is wondering what she can do. She also has chest congestion and difficult to expectorate the phlegm. The patient does have significant wheezing will provide her with Solu-Medrol 125 mg IM x1. The patient also benefit from another course of antibiotics and prednisone. She does have a scheduled bronchoscopy next week for follow-up after thrombo plasty. But at this point I did recommend to the patient that if she continues to have active asthma she should postpone specially if there has no need for any interventions. 03/25/2024 the patient is here for a pulmonary follow-up visit. The patient recently had a upper respiratory illness resulting in an asthma exacerbation. The patient required antibiotics and prednisone. She now has completed the course. She still has hoarseness. She feels some chest congestion but overall better. The patient does not need any additional prednisone antibiotics. If her symptoms worsen she can always consider calling to be reassessed. In the meantime she is changing pharmacy so I sent her all her medicines with the new pharmacy. She also has been using the CPAP at nighttime. The CPAP therapy continues to be affecting beneficial. She does try to use it more than 4 hours a night. She has not been getting supplies. I did send a script to [facility] in order for her to get supplies. I explained to the patient that she needs to make sure she has adequate usage from the CPAP in order to be active with them. In the meantime I did provide her with an N30 eyes small mask that seemed to fit better than the P 10 nasal pillows that was irritating her nares. I will request that new mask to the [employer]. The patient also be following up in [place] soon. She is scheduled to have a PFT a CT scan and possibly a b ronchoscopy to have an evaluation post thermoplastic. The patient will request her imaging studies in order for us to be able to review them over here. She was a;so evaluated by allergy and had allergy testing. She continues on the Xolair. Otherwise patient is without other complaints. She will follow-up in 3- 4 months. If any new issues arise she will call for an earlier assessment. 06/14/2024 the patient is here for a sick visit. Apparently patient was in his usual state health until this weekend started developing some difficulty with her breathing. [place] like her throat was closing up. [place] some difficulty swallowing. Although no sore throat. She continue using her respiratory therapy. As far as exposures she had been out during the day and pureed. There was positive sick contacts although she does not have any Viral syndrome symptoms. She also states that recently her Xolair was increased and she is not sure if that has anything to do with it. She does have an EpiPen although is not up today and is actually . I will send her new EpiPen to the pharmacy. She knows when to use it and how to use it. The patient does have some swelling on the throat area. I do not see any evidence of any angioedema or any edema of the uvula. I also do not appreciate any stridor at this time. Will go ahead and treat her with some prednisone to decrease the inflammatory changes and also will treat her for the possibility of bacterial pharyngitis. The patient be following up with her retail field representative in a couple weeks at which point she can continue to be evaluated as far as symptoms. But at this point she has been on Xolair for a long period of time and she has done well on it and I do not believe that the increasing the medication has any evidence of any adverse effects at this time. 07/26/2024 the patient is here for a pulmonary follow-up visit. She still struggling with her breathing. The patient is been concerned about the Xolair. She feels that she is having reactions to it. We last spoke she had to use an EpiPen twice. The patient also has been having some issue with hoarseness and raspiness of her voice. She has also had chest congestion chest tightness. The patient has required her nebulizer several times a day. She has also continue with respiratory therapy. We did do additional blood work. It looks like her IgE level continues to be elevated. Eosinophil levels okay. Although at this point because of adverse symptoms it would be reasonable to switch her biologic to a different agent. I do believe test part be a good option for her. Dupixent will be a good option to however, her eosinophils are within normal limits. She is also concerned about her tracheobronchomalacia. She feels like it is coming back. She is supposed to be seen by [place] soon. She continues use her CPAP every night. CPAP therapy has been affecting beneficial. She needs use more than 4 hours a night. Therefore will continue with the current respiratory therapy and allergy therapy. The patient has required prednisone multiple times as it is already. She has diabetes. We need to minimize her prednisone use. The patient does have chronic bronchitis so therefore the use of Daliresp at this time will be helpful. 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 CJ (obstructive sleep apnea) CJ on CPAP Diabetes Sjogrens syndrome Lesion of bronchus Pneumonia Asthma Tracheobronchomalacia COVID-19 Surgical History History of carpal tunnel surgery of left wrist History of bronchoscopy History of endometrial ablation Hx of tubal ligation Family History Mother Asthma Father Diabetes Social History Household Members: Spouse and Children Alcohol intake: never Patient Tobacco Use Status: Former Tobacco user Tobacco use type: Cigarette Years Smoked: 2-3 yrs Second Hand Smoke Exposure: No Review of Systems Const Reports daytime sleepiness, Reports difficulty sleeping and Denies night sweats ENT Denies change in voice, Reports dysphagia, Denies lip swelling, Denies mouth pain, Reports nasal congestion, Reports nasal discharge and Reports sore throat Card Reports chest pain, Reports dyspnea and Reports dyspnea on exertion Resp Denies chest congestion, Reports cough, Denies hemoptysis, Denies pain on inspiration, Denies pain with cough, Reports dyspnea, Reports dyspnea on exertion and Reports wheezing GI Denies abdominal pain and Reports dysphagia Musc Denies no additional complaints and Reports back pain Skin/Breast Denies rash Neuro Denies Neuro-related abnormal movements and Reports paresthesias Psych Denies no additional complaints Anatoliy/Lymph Denies easy bleeding and Denies lymphadenopathy Aller/Immun Denies lip swelling and Reports wheezing Physical Exam Vital Signs: Last Vital Signs Pulse 75 07/26/24 14:09 BP 124/78 07/26/24 14:09 Pulse Ox 98 07/26/24 14:09 Oxygen Delivery Method Room Air 07/26/24 14:09 BMI result Body Mass Index 28.3 Const General: alert; No in distress HEENT Head: Yes normocephalic Throat: Yes posterior oropharynx abnormal ( erythematous), Yes postnasal drainage and No uvular edema Neck Neck: Yes normal visual inspection, Yes full ROM, Yes no lymphadenopathy and Yes lymphadenopathy Chest Chest palpation & inspection: normal inspection of the chest and tenderness rib (on the right side with areas of tenderness) Resp Effort & Inspection: prolonged expiratory phase Auscultation: wheezes and diminished lung sounds Cardio Rate: regular rate Rhythm: regular rhythm Heart sounds: S1 normal heart sound present and S2 normal heart sound present GI Palpation (GI): Soft to palpation and nontender Auscultation: normal bowel sounds Skin General skin exam: rashes and/or lesions noted Extrem General: No cyanosis and Yes edema Assessment & Plan Assessment & Plan (1) Pharyngitis: Code(s): J02.9 - Acute pharyngitis, unspecified Category: Medical Qualifiers: Pharyngitis/tonsillitis etiology: other specified organisms Qualified Code(s): J02.8 - Acute pharyngitis due to other specified organisms (2) Asthma: Comment: s/p thermoplasty Code(s): J45.909 - Unspecified asthma, uncomplicated Category: Medical Qualifiers: Asthma complication type: with acute exacerbation Asthma persistence: persistent Asthma severity: severe Qualified Code(s): J45.51 - Severe persistent asthma with (acute) exacerbation (3) Chronic restrictive lung disease: Code(s): J98.4 - Other disorders of lung Category: Medical (4) CJ (obstructive sleep apnea): Code(s): G47.33 - Obstructive sleep apnea (adult) (pediatric) Category: Medical (5) Sjogrens syndrome: Comment: ++SSa dx around 2016 HCQ 2017 Code(s): M35.00 - Sjogren syndrome, unspecified Category: Medical Qualifiers: Sjogren's organ involvement: keratoconjunctivitis Qualified Code(s): M35.01 - Sicca syndrome with keratoconjunctivitis (6) Tracheobronchomalacia: Comment: 2019: treated with tracheoplasty in [place] Code(s): J39.8 - Other specified diseases of upper respiratory tract Category: Medical Plan cough suppressant stop Xolair. start Tezspire Continue Breo, incruse restart Daliresp barium swallow Continue APAP Xopenex - The patient cannot tolerate albuterol due to significant adverse effects with tachycardia at tremulousness and agitation PPI reflux diet F/U 2-3 months Orders: Orders [place] barium swallow Today K21.9 - Gastro-esophageal reflux disease without esophagitis Medications: New artifi.tears(hypromellose)(PF) 1.7% 1 drp ophthalmic (eye) Q4-6H PRN 12 mL 11RF dry eye(s) 30 days Refilled roflumilast (Daliresp) 500 mcg PO DAILY 30 tabs 11RF 30 days Coding Level of Care Code Est Pt Level 4 (45326) Diagnoses Pharyngitis due to other organism J02.8 Pharyngitis/tonsillitis etiology: other specified organisms Severe persistent asthma with acute exacerbation J45.51 Asthma complication type: with acute exacerbation Asthma persistence: persistent Asthma severity: severe Chronic restrictive lung disease J98.4 CJ (obstructive sleep apnea) G47.33 Sjogren's syndrome with keratoconjunctivitis sicca M35.01 Sjogren's organ involvement: keratoconjunctivitis Tracheobronchomalacia J39.8 Time Spent (min) 18
== END 2024-07-26 14:43 | disposition home or self-care (01) ==
PROVIDERS: PCP Internal Medicine Geriatric Medicine; Visit Provider Hospitalist
DX: J02.8 Acute pharyngitis due to other specified organisms (principal); J45.51 Severe persistent asthma with (acute) exacerbation; J98.4 Other disorders of lung; G47.33 Obstructive sleep apnea (adult) (pediatric); M35.01 Sjogren syndrome with keratoconjunctivitis; J39.8 Other specified diseases of upper respiratory tract
CPT/HCPCS: 99214

== ENCOUNTER → 2024-07-26 13:53 | Outpatient (BNVA) | payer MEDICAID, SELFPAY | PROVIDERS: PCP Internal Medicine Geriatric Medicine; Visit Provider Hospitalist | DX: J02.8 Acute pharyngitis due to other specified organisms (principal); J45.51 Severe persistent asthma with (acute) exacerbation; J98.4 Other disorders of lung; J39.8 Other specified diseases of upper respiratory tract; G47.33 Obstructive sleep apnea (adult) (pediatric); M35.01 Sjogren syndrome with keratoconjunctivitis; Z99.89 Dependence on other enabling machines and devices; Z79.899 Other long term (current) drug therapy | CPT/HCPCS: 99212 ==

== ENCOUNTER 2024-09-30 10:02 | Outpatient (AMB) | payer MEDICAID, SELFPAY ==
--- NOTE | 2024-09-30 10:03 | MHC.OFFVIS ---
Vital Signs 09/30/24 10:04 Height 5 ft 5 in Weight 177 lb 7.554 oz BMI 29.5 BP 140/92 H Blood Pressure Location Lt brachial Position Sitting Pulse 77 Pulse Source Pulse Oximeter Pulse Oximetry (%) 100 Oxygen Delivery Method Room Air Intake Visit Reasons: Shortness of breath Allergies latex [LATEX] Allergy (Severe, Verified 09/30/24 10:07) RASH passion fruit [PASSION FRUIT] Allergy (Severe, Verified 09/30/24 10:07) ANAPHYLAXIS Penicillins [PCN] Allergy (Severe, Verified 09/30/24 10:07) ANAPHYLAXIS shellfish derived [SHELLFISH DERIVED] Allergy (Severe, Verified 09/30/24 10:07) MOUTH SWELLING, ITCHY acetaminophen [From TYLENOL] Allergy (Mild, Verified 09/30/24 10:07) UNKNOWN ibuprofen [IBUPROFEN] Allergy (Mild, Verified 09/30/24 10:07) HX ULCERS TOLD NOT TO TAKE iodine [IODINE] Allergy (Mild, Verified 09/30/24 10:07) ITCHY lisinopril Adverse Reaction (Severe, Verified 09/30/24 10:07) Rash metformin Adverse Reaction (Severe, Verified 09/30/24 10:07) Rash HPI Comments Details: The patient is a 54 y/o woman with a history of tracheobronchomalacia in addition to asthma. She is status post tracheoplasty in [place] complicated by right-sided pleural effusion and significant right-sided chest discomfort. 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 More recently she did have a CT scan of the chest that [facility] demonstrating a nondisplaced rib fracture. No evidence of any pulmonary emboli. Her chest pain is still moderate severity. Limiting her activity. She is scheduled to have a repeat CT scan of the chest and bronchoscopy in [facility]. She continues to use her respiratory inhalers for her asthma. We did give her further indication about which inhalers she should be using. She is status post bronchoscopy demonstrating patency of the trachea and a successful surgery. Her cough is significantly improved. She continues with respiratory therapy. 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 She did have a visit with the pain specialist. In the meantime the patient needs to be using her CPAP. She states that he needs to be adjusted. She will bring in the next time so we can adjusted the CPAP so she can use it as prescribed. She understands was so help her respiratory status and also decrease cardiovascular risks. 05/13/2023 the patient is here for a pulmonary follow-up visit. Overall the patient had been doing relatively well. She continues to have dyspnea on exertion. She also responds well to the oxygen specially if she is exercising. The patient recently went to [place] and completed a course of thermoplastic. Now she is doing well from an asthma standpoint. She is continues on the Xolair continues with allergy medicine. She did undergo pulmonary function studies today which we personally reviewed in the office. No evidence of any obstructive ventilatory defects. Although her total lung capacity still low at 73%. Indeed is better than before which was 69% and a diffusing capacity is a little better as well. Still this restrictive ventilatory defect does the affect her her symptoms. I do believe that she will benefit from pulmonary rehabilitation at this time and the patient is agreeable to this. In the meantime she is going to continue with current allergy therapy. She also is being monitored off for underlying pulmonary nodules. Her last CT scan was done at [facility] back in January 2023. No evidence of any residual rib fractures that she was wondering. Again pulmonary nodules that will need follow-up. During that visit she also has some stranding in the GI tract due to likely food poisoning. Also, still having daytime drowsiness. EPWORTH score 11/24. 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 Will order an in-lab PSG. Current the patient is doing well she will return to [place] sometime in November. Otherwise will continue to follow her every 4-6 months. 07/31/2023 the patient is here for pulmonary follow-up visit. The patient has been complaining of worsening asthma symptoms. She has been having increasing chest tightness and wheezing. This has been happening now for the last 3 days. She continues with Xolair injections in does have been helpful. Denies any sick contacts. She has been using her respiratory therapy. Her cough is been difficult because is been keeping her up at nighttime. Will go ahead and provide her with cough suppressant therapy. She is concerned because she has a trip planned in at this point with the asthma exacerbation the patient will go ahead and receive Solu-Medrol IM x1. She is going to continue respiratory therapy. If the patient is no better she will call the office for additional steroid therapy. The patient also continues to have significant daytime drowsiness. She did have a sleep study back in the summer demonstrating mild sleep apnea. Patient will try positional therapy. But, if the patient continues to be symptomatic with daytime drowsiness she would benefit from CPAP therapy. 11/28/2023 the patient is here for sick visit. Apparently the beginning of the year she was exposed to her grandson with the flu. Ultimately developed the flu she did call and she did take Tamiflu. Although her respiratory symptoms worsened and she required prednisone and also antibiotics. She will call the office when he stopped the medications to the pharmacy. She continues to have significant asthma chest tightness and wheezing. She is wondering what she can do. She also has chest congestion and difficult to expectorate the phlegm. The patient does have significant wheezing will provide her with Solu-Medrol 125 mg IM x1. The patient also benefit from another course of antibiotics and prednisone. She does have a scheduled bronchoscopy next week for follow-up after thrombo plasty. But at this point I did recommend to the patient that if she continues to have active asthma she should postpone specially if there has no need for any interventions. 03/25/2024 the patient is here for a pulmonary follow-up visit. The patient recently had a upper respiratory illness resulting in an asthma exacerbation. The patient required antibiotics and prednisone. She now has completed the course. She still has hoarseness. She feels some chest congestion but overall better. The patient does not need any additional prednisone antibiotics. If her symptoms worsen she can always consider calling to be reassessed. In the meantime she is changing pharmacy so I sent her all her medicines with the new pharmacy. She also has been using the CPAP at nighttime. The CPAP therapy continues to be affecting beneficial. She does try to use it more than 4 hours a night. She has not been getting supplies. I did send a script to [facility] [place] in order for her to get supplies. I explained to the patient that she needs to make sure she has adequate usage from the CPAP in order to be active with them. In the meantime I did provide her with an N30 eyes small mask that seemed to fit better than the P 10 nasal pillows that was irritating her nares. I will request that new mask to the [facility]. The patient also be following up in [place] soon. She is scheduled to have a PFT a CT scan and possibly a bronchoscopy to have an evaluation post thermoplastic. The patient will request her imaging studies in order for us to be able to review them over here. She was a;so evaluated by allergy and had allergy testing. She continues on the Xolair. Otherwise patient is without other complaints. She will follow-up in 3-4 months. If any new issues arise she will call for an earlier assessment. 06/14/2024 the patient is here for a sick visit. Apparently patient was in his usual state health until this weekend started developing some difficulty with her breathing. [place] like her throat was closing up. [place] some difficulty swallowing. Although no sore throat. She continue using her respiratory therapy. As far as exposures she had been out during the day and pureed. There was positive sick contacts although she does not have any Viral syndrome symptoms. She also states that recently her Xolair was increased and she is not sure if that has anything to do with it. She does have an EpiPen although is not up today and is actually . I will send her new EpiPen to the pharmacy. She knows when to use it and how to use it. The patient does have some swelling on the throat area. I do not see any evidence of any angioedema or any edema of the uvula. I also do not appreciate any stridor at this time. Will go ahead and treat her with some prednisone to decrease the inflammatory changes and also will treat her for the possibility of bacterial pharyngitis. The patient be following up with her supervisor power reactor in a couple weeks at which point she can continue to be evaluated as far as symptoms. But at this point she has been on Xolair for a long period of time and she has done well on it and I do not believe that the increasing the medication has any evidence of any adverse effects at this time. 07/26/2024 the patient is here for a pulmonary follow-up visit. She still struggling with her breathing. The patient is been concerned about the Xolair. She feels that she is having reactions to it. We last spoke she had to use an EpiPen twice. The patient also has been having some issue with hoarseness and raspiness of her voice. She has also had chest congestion chest tightness. The patient has required her nebulizer several times a day. She has also continue with respiratory therapy. We did do additional blood work. It looks like her IgE level continues to be elevated. Eosinophil levels okay. Although at this point because of adverse symptoms it would be reasonable to switch her biologic to a different agent. I do believe test part be a good option for her. Dupixent will be a good option to however, her eosinophils are within normal limits. She is also concerned about her tracheobronchomalacia. She feels like it is coming back. She is supposed to be seen by [place] soon. She continues use her CPAP every night. CPAP therapy has been affecting beneficial. She needs use more than 4 hours a night. Therefore will continue with the current respiratory therapy and allergy therapy. The patient has required prednisone multiple times as it is already. She has diabetes. We need to minimize her prednisone use. The patient does have chronic bronchitis so therefore the use of Daliresp at this time will be helpful. 09/30/2024 the patient is here for pulmonary follow-up visit. Overall she is doing fairly well. She is tolerating the test prior. Has not had any reactions like she was having before. Still has raspiness of the voice. Indeed he may be the inhalers. Although they seem to be working well for her. She does have a barium swallow scheduled soon to see if she has any potential reflux that may be contributing to her hoarseness. In the meantime the patient will be followed up at for her yearly follow-up CT scan and likely bronchoscopy. 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 She has regained some back. She is still dealing with that with the distribution analyst. The patient will return in 3 4 months. If she has any issues prior to that she will call for an earlier assessment. She is also using his CPAP every night. CPAP therapy has been affecting beneficial she does use it for more than 4 hours a night. She is using a nasal pillow. Although it is irritating her nostrils. Will go ahead and see if we can get her nasal mask instead. She can also try cradle. [facility] Medical History Laryngitis Dysphagia Rib fracture Rib fracture Cough Chronic restrictive lung disease [id number] syndrome CJ (obstructive sleep apnea) CJ on CPAP Diabetes Sjogrens syndrome Lesion of bronchus Pneumonia Asthma Tracheobronchomalacia COVID-19 Surgical History History of carpal tunnel surgery of left wrist History of bronchoscopy History of endometrial ablation Hx of tubal ligation Family History Mother Asthma Father Diabetes Social History Household Members: Spouse and Children Alcohol intake: never Patient Tobacco Use Status: Former Tobacco user Tobacco use type: Cigarette Years Smoked: 2-3 yrs Second Hand Smoke Exposure: No Review of Systems Const Reports daytime sleepiness, Reports difficulty sleeping, Denies night sweats and Reports weight loss Eyes Reports as per HPI and Reports change in vision ENT Denies change in voice, Reports dysphagia, Denies lip swelling, Denies mouth pain, Reports nasal congestion, Reports nasal discharge and Reports sore throat Card Denies chest pain, Denies dyspnea and Reports dyspnea on exertion Resp Denies chest congestion, Reports cough, Denies hemoptysis, Denies pain on inspiration, Denies pain with cough, Denies dyspnea, Reports dyspnea on exertion and Denies wheezing GI Denies abdominal pain and Reports dysphagia Musc Denies no additional complaints and Reports back pain Skin/Breast Denies rash Neuro Denies Neuro-related abnormal movements and Reports paresthesias Psych Denies no additional complaints Anatoliy/Lymph Denies easy bleeding and Denies lymphadenopathy Aller/Immun Denies lip swelling and Denies wheezing Physical Exam Vital Signs: Last Vital Signs Pulse 77 09/30/24 10:04 BP 140/92 H 09/30/24 10:04 Pulse Ox 100 09/30/24 10:04 Oxygen Delivery Method Room Air 09/30/24 10:04 BMI result Body Mass Index 29.5 Const General: alert; No in distress HEENT Head: Yes normocephalic Throat: Yes posterior oropharynx abnormal ( erythematous), Yes postnasal drainage and No uvular edema Neck Neck: Yes normal visual inspection, Yes full ROM, Yes no lymphadenopathy and Yes lymphadenopathy Chest Chest palpation & inspection: normal inspection of the chest and tenderness rib (on the right side with areas of tenderness) Resp Effort & Inspection: normal respiratory effort and No prolonged expiratory phase Auscultation: no wheezes and diminished lung sounds Cardio Rate: regular rate Rhythm: regular rhythm Heart sounds: S1 normal heart sound present and S2 normal heart sound present GI Palpation (GI): Soft to palpation and nontender Auscultation: normal bowel sounds Skin General skin exam: rashes and/or lesions noted Extrem General: No cyanosis and Yes edema Assessment & Plan Assessment & Plan (1) Asthma: Comment: s/p thermoplasty Code(s): J45.909 - Unspecified asthma, uncomplicated Category: Medical Qualifiers: Asthma complication type: with acute exacerbation Asthma persistence: persistent Asthma severity: severe Qualified Code(s): J45.51 - Severe persistent asthma with (acute) exacerbation (2) Chronic restrictive lung disease: Code(s): J98.4 - Other disorders of lung Category: Medical (3) CJ (obstructive sleep apnea): Code(s): G47.33 - Obstructive sleep apnea (adult) (pediatric) Category: Medical (4) Sjogrens syndrome: Comment: ++SSa dx around 2016 HCQ 2017 Code(s): M35.00 - Sjogren syndrome, unspecified Category: Medical Qualifiers: Sjogren's organ involvement: keratoconjunctivitis Qualified Code(s): M35.01 - Sicca syndrome with keratoconjunctivitis (5) Tracheobronchomalacia: Comment: 2019: treated with tracheoplasty in [place] Code(s): J39.8 - Other specified diseases of upper respiratory tract Category: Medical Plan continue Tezspire Continue Breo, incruse Daliresp barium swallow pending Continue APAP, trial Nasal mask Xopenex - The patient cannot tolerate albuterol due to significant adverse effects with tachycardia at tremulousness and agitation PPI reflux diet F/U at BI F/U 3-4 months Coding Level of Care Code Est Pt Level 4 (97841) Diagnoses Severe persistent asthma with acute exacerbation J45.51 Asthma complication type: with acute exacerbation Asthma persistence: persistent Asthma severity: severe Chronic restrictive lung disease J98.4 CJ (obstructive sleep apnea) G47.33 Sjogren's syndrome with keratoconjunctivitis sicca M35.01 Sjogren's organ involvement: keratoconjunctivitis Tracheobronchomalacia J39.8 Time Spent (min) 17
[2024-09-30 10:04] VITALS: BP 140/92; PULSE 77; O2SAT 100; BMI 29.5
== END 2024-09-30 10:36 | disposition home or self-care (01) ==
PROVIDERS: PCP Internal Medicine Geriatric Medicine; Visit Provider Hospitalist
DX: J45.51 Severe persistent asthma with (acute) exacerbation (principal); J98.4 Other disorders of lung; G47.33 Obstructive sleep apnea (adult) (pediatric); M35.01 Sjogren syndrome with keratoconjunctivitis; J39.8 Other specified diseases of upper respiratory tract
CPT/HCPCS: 99214

== ENCOUNTER → 2024-09-30 10:02 | Outpatient (BNVA) | payer MEDICAID, SELFPAY | PROVIDERS: PCP Internal Medicine Geriatric Medicine; Visit Provider Hospitalist | DX: J45.51 Severe persistent asthma with (acute) exacerbation (principal); J98.4 Other disorders of lung; J39.8 Other specified diseases of upper respiratory tract; G47.33 Obstructive sleep apnea (adult) (pediatric); M35.01 Sjogren syndrome with keratoconjunctivitis; Z99.89 Dependence on other enabling machines and devices | CPT/HCPCS: 99212 ==

== ENCOUNTER 2024-10-05 09:17 | Outpatient (REF) | payer MEDICAID, SELFPAY ==
--- NOTE | ~2024-10-05 | FL_ITS ---
EXAMINATION: XR FLUOROSCOPY UPPER GI WITH AIR CLINICAL INFORMATION: Reflux. Dysphagia. COMPARISON: None TECHNIQUE: Fluoroscopic air contrast upper GI examination was performed utilizing standard techniques with thin and thick barium and effervescent granules. Numerous spot images were obtained. FINDINGS: Lateral cine images of the oropharynx and hypopharynx demonstrate normal swallow mechanism with normal epiglottic inversion and soft palate elevation. No tracheal penetration, glottic or subglottic aspiration identified. No nasopharyngeal reflux present. Hypopharyngeal structures appear normal without evidence of mass or diverticulum. There is moderate cricopharyngeal achalasia present. Dual and single contrast images of the esophagus demonstrate a mildly patulous esophagus and a normal mucosal pattern. No evidence of stricture, mass, or ulcerations identified. There is to and fro motion of the barium column with nonpropulsive tertiary contractions noted throughout the esophagus. A small type I hiatal hernia is present. No significant gastroesophageal reflux was seen during the course of the examination and on reflux views. There is mild to moderate smooth narrowing of the GE junction noted, findings which most likely reflect mild achalasia. Dual contrast and single contrast images of the stomach demonstrated a normal contour. Evaluation of the gastric mucosa is limited due to poor coating of the barium. There is a mixed density within the stomach that moves with positioning, likely representing retained food. There is a delay in contrast progressing into the duodenum. No obvious masses are seen. Single and air-contrast images of the duodenal bulb demonstrate no abnormality. The duodenal sweep has a normal appearance, course, and mucosal fold appearance. FLUOROSCOPY TIME: 5 minutes 49 seconds Number of Spot Images: 15 Number of Cine: 17 DOSE AREA PRODUCT: [id number] uGy-m2 (microgray-meter squared) FL/FL barium swallow with air IMPRESSION: 1. Moderate cricopharyngeal achalasia. 2. Mildly patulous esophagus. In addition there is to and fro motion of the barium column with nonpropulsive tertiary contractions noted throughout the esophagus. These findings are consistent with esophageal dysmotility. 3. Small type I hiatal hernia. 4. Mild/moderate narrowing of the GE junction, most likely representing mild achalasia. The 5. Limited evaluation of the gastric mucosa due to poor coating of the barium. There is a mixed density within the stomach that moves during patient positioning. This likely represents retained food. 6. Delay in gastric emptying. No mass is present to suggest gastric outlet obstruction. Recommend correlation with gastric emptying study to assess for gastroparesis. This procedure was performed by Desean Mchugh PA-C, and supervised by Dr. Valentine Electronically signed by: Kei Valentine MD 10/06/2024 01:23 PM [facility]
== END 2024-10-05 09:18 | disposition home or self-care (01) ==
LOC: HO.XRAY 09:17
PROVIDERS: PCP Internal Medicine Geriatric Medicine; Visit Provider Hospitalist
DX: K21.9 Gastro-esophageal reflux disease without esophagitis (principal)
CPT/HCPCS: 74221

== ENCOUNTER → 2024-10-05 09:20 | Outpatient (BNV) | payer MEDICAID, SELFPAY | PROVIDERS: PCP Internal Medicine Geriatric Medicine; Visit Provider Physician Assistant Surgical | DX: R13.10 Dysphagia, unspecified (principal); K21.9 Gastro-esophageal reflux disease without esophagitis | CPT/HCPCS: 74221; 74246 ==

== ENCOUNTER 2025-01-06 12:57 | Outpatient (AMB) | payer MEDICAID, SELFPAY ==
--- NOTE | 2025-01-06 13:01 | MHC.OFFVIS ---
Vital Signs 01/06/25 13:02 Height 5 ft 5 in Weight 181 lb 14.102 oz BMI 30.3 BP 140/92 H Blood Pressure Location Lt brachial Position Sitting Pulse 67 Pulse Source Pulse Oximeter Pulse Oximetry (%) 100 Oxygen Delivery Method Room Air Intake Visit Reasons: Shortness of breath Allergies latex [LATEX] Allergy (Severe, Verified 01/06/25 13:06) RASH passion fruit [PASSION FRUIT] Allergy (Severe, Verified 01/06/25 13:06) ANAPHYLAXIS Penicillins [PCN] Allergy (Severe, Verified 01/06/25 13:06) ANAPHYLAXIS shellfish derived [SHELLFISH DERIVED] Allergy (Severe, Verified 01/06/25 13:06) MOUTH SWELLING, ITCHY acetaminophen [From TYLENOL] Allergy (Mild, Verified 01/06/25 13:06) UNKNOWN ibuprofen [IBUPROFEN] Allergy (Mild, Verified 01/06/25 13:06) HX ULCERS TOLD NOT TO TAKE iodine [IODINE] Allergy (Mild, Verified 01/06/25 13:06) ITCHY lisinopril Adverse Reaction (Severe, Verified 01/06/25 13:06) Rash metformin Adverse Reaction (Severe, Verified 01/06/25 13:06) Rash HPI Comments Details: The patient is a 54 y/o woman with a history of tracheobronchomalacia in addition to asthma. She is status post tracheoplasty in [place] complicated by right-sided pleural effusion and significant right-sided chest discomfort. 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 More recently she did have a CT scan of the chest that [facility] demonstrating a nondisplaced rib fracture. No evidence of any pulmonary emboli. Her chest pain is still moderate severity. Limiting her activity. She is scheduled to have a repeat CT scan of the chest and bronchoscopy in [facility]. She continues to use her respiratory inhalers for her asthma. We did give her further indication about which inhalers she should be using. She is status post bronchoscopy demonstrating patency of the trachea and a successful surgery. Her cough is significantly improved. She continues with respiratory therapy. 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 She did have a visit with the pain specialist. In the meantime the patient needs to be using her CPAP. She states that he needs to be adjusted. She will bring in the next time so we can adjusted the CPAP so she can use it as prescribed. She understands was so help her respiratory status and also decrease cardiovascular risks. 05/13/2023 the patient is here for a pulmonary follow-up visit. Overall the patient had been doing relatively well. She continues to have dyspnea on exertion. She also responds well to the oxygen specially if she is exercising. The patient recently went to [place] and completed a course of thermoplastic. Now she is doing well from an asthma standpoint. She is continues on the Xolair continues with allergy medicine. She did undergo pulmonary function studies today which we personally reviewed in the office. No evidence of any obstructive ventilatory defects. Although her total lung capacity still low at 73%. Indeed is better than before which was 69% and a diffusing capacity is a little better as well. Still this restrictive ventilatory defect does the affect her her symptoms. I do believe that she will benefit from pulmonary rehabilitation at this time and the patient is agreeable to this. In the meantime she is going to continue with current allergy therapy. She also is being monitored off for underlying pulmonary nodules. Her last CT scan was done at [facility] back in January 2023. No evidence of any residual rib fractures that she was wondering. Again pulmonary nodules that will need follow-up. During that visit she also has some stranding in the GI tract due to likely food poisoning. Also, still having daytime drowsiness. EPWORTH score 11/24. 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 Will order an in-lab PSG. Current the patient is doing well she will return to [place] sometime in November. Otherwise will continue to follow her every 4-6 months. 07/31/2023 the patient is here for pulmonary follow-up visit. The patient has been complaining of worsening asthma symptoms. She has been having increasing chest tightness and wheezing. This has been happening now for the last 3 days. She continues with Xolair injections in does have been helpful. Denies any sick contacts. She has been using her respiratory therapy. Her cough is been difficult because is been keeping her up at nighttime. Will go ahead and provide her with cough suppressant therapy. She is concerned because she has a trip planned in at this point with the asthma exacerbation the patient will go ahead and receive Solu-Medrol IM x1. She is going to continue respiratory therapy. If the patient is no better she will call the office for additional steroid therapy. The patient also continues to have significant daytime drowsiness. She did have a sleep study back in the summer demonstrating mild sleep apnea. Patient will try positional therapy. But, if the patient continues to be symptomatic with daytime drowsiness she would benefit from CPAP therapy. 11/28/2023 the patient is here for sick visit. Apparently the beginning of the year she was exposed to her grandson with the flu. Ultimately developed the flu she did call and she did take Tamiflu. Although her respiratory symptoms worsened and she required prednisone and also antibiotics. She will call the office when he stopped the medications to the pharmacy. She continues to have significant asthma chest tightness and wheezing. She is wondering what she can do. She also has chest congestion and difficult to expectorate the phlegm. The patient does have significant wheezing will provide her with Solu-Medrol 125 mg IM x1. The patient also benefit from another course of antibiotics and prednisone. She does have a scheduled bronchoscopy next week for follow-up after thrombo plasty. But at this point I did recommend to the patient that if she continues to have active asthma she should postpone specially if there has no need for any interventions. 03/25/2024 the patient is here for a pulmonary follow-up visit. The patient recently had a upper respiratory illness resulting in an asthma exacerbation. The patient required antibiotics and prednisone. She now has completed the course. She still has hoarseness. She feels some chest congestion but overall better. The patient does not need any additional prednisone antibiotics. If her symptoms worsen she can always consider calling to be reassessed. In the meantime she is changing pharmacy so I sent her all her medicines with the new pharmacy. She also has been using the CPAP at nighttime. The CPAP therapy continues to be affecting beneficial. She does try to use it more than 4 hours a night. She has not been getting supplies. I did send a script to [facility] [place] in order for her to get supplies. I explained to the patient that she needs to make sure she has adequate usage from the CPAP in order to be active with them. In the meantime I did provide her with an N30 eyes small mask that seemed to fit better than the P 10 nasal pillows that was irritating her nares. I will request that new mask to the [facility]. The patient also be following up in [place] soon. She is scheduled to have a PFT a CT scan and possibly a bronchoscopy to have an evaluation post thermoplastic. The patient will request her imaging studies in order for us to be able to review them over here. She was a;so evaluated by allergy and had allergy testing. She continues on the Xolair. Otherwise patient is without other complaints. She will follow-up in 3-4 months. If any new issues arise she will call for an earlier assessment. 06/14/2024 the patient is here for a sick visit. Apparently patient was in his usual state health until this weekend started developing some difficulty with her breathing. [place] like her throat was closing up. [place] some difficulty swallowing. Although no sore throat. She continue using her respiratory therapy. As far as exposures she had been out during the day and pureed. There was positive sick contacts although she does not have any Viral syndrome symptoms. She also states that recently her Xolair was increased and she is not sure if that has anything to do with it. She does have an EpiPen although is not up today and is actually . I will send her new EpiPen to the pharmacy. She knows when to use it and how to use it. The patient does have some swelling on the throat area. I do not see any evidence of any angioedema or any edema of the uvula. I also do not appreciate any stridor at this time. Will go ahead and treat her with some prednisone to decrease the inflammatory changes and also will treat her for the possibility of bacterial pharyngitis. The patient be following up with her director clinical data in a couple weeks at which point she can continue to be evaluated as far as symptoms. But at this point she has been on Xolair for a long period of time and she has done well on it and I do not believe that the increasing the medication has any evidence of any adverse effects at this time. 07/26/2024 the patient is here for a pulmonary follow-up visit. She still struggling with her breathing. The patient is been concerned about the Xolair. She feels that she is having reactions to it. We last spoke she had to use an EpiPen twice. The patient also has been having some issue with hoarseness and raspiness of her voice. She has also had chest congestion chest tightness. The patient has required her nebulizer several times a day. She has also continue with respiratory therapy. We did do additional blood work. It looks like her IgE level continues to be elevated. Eosinophil levels okay. Although at this point because of adverse symptoms it would be reasonable to switch her biologic to a different agent. I do believe test part be a good option for her. Dupixent will be a good option to however, her eosinophils are within normal limits. She is also concerned about her tracheobronchomalacia. She feels like it is coming back. She is supposed to be seen by [place] soon. She continues use her CPAP every night. CPAP therapy has been affecting beneficial. She needs use more than 4 hours a night. Therefore will continue with the current respiratory therapy and allergy therapy. The patient has required prednisone multiple times as it is already. She has diabetes. We need to minimize her prednisone use. The patient does have chronic bronchitis so therefore the use of Daliresp at this time will be helpful. 09/30/2024 the patient is here for pulmonary follow-up visit. Overall she is doing fairly well. She is tolerating the test prior. Has not had any reactions like she was having before. Still has raspiness of the voice. Indeed he may be the inhalers. Although they seem to be working well for her. She does have a barium swallow scheduled soon to see if she has any potential reflux that may be contributing to her hoarseness. In the meantime the patient will be followed up at for her yearly follow-up CT scan and likely bronchoscopy. 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 She has regained some back. She is still dealing with that with the metal tube cutter. The patient will return in 3 4 months. If she has any issues prior to that she will call for an earlier assessment. She is also using his CPAP every night. CPAP therapy has been affecting beneficial she does use it for more than 4 hours a night. She is using a nasal pillow. Although it is irritating her nostrils. Will go ahead and see if we can get her nasal mask instead. She can also try cradle. 01/06/2025 she is here for pulmonary follow-up visit. Overall she is doing fairly well. She did follow-up in [place] and did have a CT scan of the chest and also bronchoscopy. They found that she had a component of tracheomalacia but minimal. And she did have an intervention. They also found that she has some atelectasis to the right base. And felt that this part is affecting her gas exchange. She continues use oxygen. She does have the concentrator at home and has a portable tanks that she gets to [facility] [place]. Although it has been difficult for her to carry because of the difficulty carrying tanks. Therefore will request a portable oxygen concentrator 2 L pulse she can using the meantime. The patient also continues to use her CPAP. The CPAP therapy continues to be affecting beneficial. She does use it for more than 4 hours a night. In addition to that she is on her allergy medication and also her asthma medications she continues to be on test by every month with good results. Right now she is consider having plastic surgery for her abdomen. She needed a preop clearance letter which I provided her otherwise the patient is doing well will follow-up in 2-3 months. [facility] Medical History (Updated 01/06/25 @ 13:23 by Hood Edgar MD) Atelectasis Laryngitis Dysphagia Rib fracture Rib fracture Cough Chronic restrictive lung disease [id number] syndrome CJ (obstructive sleep apnea) CJ on CPAP Diabetes Sjogrens syndrome Lesion of bronchus Pneumonia Asthma Tracheobronchomalacia COVID-19 Surgical History History of carpal tunnel surgery of left wrist History of bronchoscopy History of endometrial ablation Hx of tubal ligation Family History Mother Asthma Father Diabetes Social History Household Members: Spouse and Children Alcohol intake: never Patient Tobacco Use Status: Former Tobacco user Tobacco use type: Cigarette Years Smoked: 2-3 yrs Second Hand Smoke Exposure: No Review of Systems Const Denies night sweats and Reports weight loss Eyes Reports as per HPI and Reports change in vision ENT Denies change in voice, Reports dysphagia, Denies lip swelling, Denies mouth pain, Reports nasal congestion, Reports nasal discharge and Reports sore throat Card Denies chest pain, Denies dyspnea and Reports dyspnea on exertion Resp Denies chest congestion, Reports cough, Denies hemoptysis, Denies pain on inspiration, Denies pain with cough, Denies dyspnea, Reports dyspnea on exertion and Denies wheezing GI Denies abdominal pain and Reports dysphagia Musc Denies no additional complaints and Reports back pain Skin/Breast Denies rash Neuro Denies Neuro-related abnormal movements and Reports paresthesias Psych Denies no additional complaints Anatoliy/Lymph Denies easy bleeding and Denies lymphadenopathy Aller/Immun Denies lip swelling and Denies wheezing Physical Exam Vital Signs: Last Vital Signs Pulse 67 01/06/25 13:02 BP 140/92 H 01/06/25 13:02 Pulse Ox 100 01/06/25 13:02 Oxygen Delivery Method Room Air 01/06/25 13:02 BMI result Body Mass Index 30.3 Const General: alert; No in distress HEENT Head: Yes normocephalic Throat: Yes posterior oropharynx abnormal ( erythematous), Yes postnasal drainage and No uvular edema Neck Neck: Yes normal visual inspection, Yes full ROM, Yes no lymphadenopathy and Yes lymphadenopathy Chest Chest palpation & inspection: normal inspection of the chest and tenderness rib (on the right side with areas of tenderness) Resp Effort & Inspection: normal respiratory effort and No prolonged expiratory phase Auscultation: no wheezes and diminished lung sounds Cardio Rate: regular rate Rhythm: regular rhythm Heart sounds: S1 normal heart sound present and S2 normal heart sound present GI Palpation (GI): Soft to palpation and nontender Auscultation: normal bowel sounds Skin General skin exam: rashes and/or lesions noted Extrem General: No cyanosis and Yes edema Assessment & Plan Assessment & Plan (1) Asthma: Comment: s/p thermoplasty Code(s): J45.909 - Unspecified asthma, uncomplicated Category: Medical Qualifiers: Asthma complication type: with acute exacerbation Asthma persistence: persistent Asthma severity: severe Qualified Code(s): J45.51 - Severe persistent asthma with (acute) exacerbation (2) Chronic restrictive lung disease: Code(s): J98.4 - Other disorders of lung Category: Medical (3) CJ (obstructive sleep apnea): Code(s): G47.33 - Obstructive sleep apnea (adult) (pediatric) Category: Medical (4) Sjogrens syndrome: Comment: ++SSa dx around 2016 HCQ 2017 Code(s): M35.00 - Sjogren syndrome, unspecified Category: Medical Qualifiers: Sjogren's organ involvement: keratoconjunctivitis Qualified Code(s): M35.01 - Sicca syndrome with keratoconjunctivitis (5) Tracheobronchomalacia: Comment: 2019: treated with tracheoplasty in [place] Code(s): J39.8 - Other specified diseases of upper respiratory tract Category: Medical (6) Atelectasis: Code(s): J98.11 - Atelectasis Category: Medical Plan continue Tezspire Continue Breo, incruse Daliresp barium swallow pending Continue APAP, trial Nasal mask Xopenex - The patient cannot tolerate albuterol due to significant adverse effects with tachycardia at tremulousness and agitation PPI reflux diet F/U at [facility] continue oxygen: requesting POC 2L/pulse for better portability outside of the home F/U 3-4 months Orders: Orders Pulmonary Rehab Today J39.8 - Other specified diseases of upper respiratory tract, J45.51 - Severe persistent asthma with (acute) exacerbation, U07.1 - COVID-19 Coding Level of Care Code Est Pt Level 4 (20170) Complex EM visit Add On G2211 Diagnoses Severe persistent asthma with acute exacerbation J45.51 Asthma complication type: with acute exacerbation Asthma persistence: persistent Asthma severity: severe Chronic restrictive lung disease J98.4 CJ (obstructive sleep apnea) G47.33 Sjogren's syndrome with keratoconjunctivitis sicca M35.01 Sjogren's organ involvement: keratoconjunctivitis Tracheobronchomalacia J39.8 Atelectasis J98.11 Time Spent (min) 18
[2025-01-06 13:02] VITALS: BP 140/92; PULSE 67; O2SAT 100; BMI 30.3
--- OUTSIDE RECORDS SUMMARY | 2025-01-06 13:51 | XMS_ITS | Encounter Summary ---
Author Organization [employer] Address [address] [place] [address] [address] [place] [address] Care Team Providers Care Tissue Coordinator Name Role Phone Name, Charbel CARRILLO Primary Care Provider [phone] Мария Gudino PharmD Unavailable [phone] Encounter Details Date Type Department Care Team ([facility] Contact Info) Description 04/21/[address] [id number] Name, MD Charbel [address] [place] [id number] Social History Tobacco Use Types Packs/Day Years Used Date Smoking Tobacco: Never Smokeless Tobacco: Never Alcohol Use Standard Drinks/Week Comments Never 0 (1 standard drink = 0.6 oz pur e alcohol) Depression Answer Date Recorded Patient Health Questionnaire-9 Score 0 10/23/2022 Depression Answer Date Recorded Patient Health Questionnaire-2 Score 0 10/23/2022 Comments Unknown Sex and Gender Information Value Date Recorded Sex Assigned at Female 09/16/2022 10:29 AM EDT Legal Sex Female 10:29 AM EDT Gender Identity Female 03/30/2024 4:35 PM EDT Sexual Orientation Choose not to disclose 2021 10:29 AM EDT COVID-19 Exposure Response Date Recorded In the last 10 days, have yo u been in contact with someone who was confirmed or suspected to have Coronavirus/COVID-19? No / Unsure 04/01/2023 11:22 AM EDT documented as of this encounter Plan of Treatment Upcoming Encounters Date Type Department Care Team ([facility] Contact Info) Description 02/04/2025 2:[address] [facility] [address] [place] [address] Roz Le, RN documented as of this encounter Visit Diagnoses Not on filedocumented in this encounter Additional Health Concerns Assessment Noted Time PHQ-9 Depression Total Score: 0 10/23/20 22 3:25 PM EST documented as of this encounter Care Teams Tissue Coordinator Relationship Specialty Start Date End Date Name, MD Charbel [address] [place] [address] PCP - General Family Medicine 02/26/16 Мария Gudino PharmD [address] [place] [address] Pharmacist Internal Medicine 04/29/23 documented as of this encounter
--- OUTSIDE RECORDS SUMMARY | 2025-01-06 13:51 | XMS_ITS | Encounter Summary ---
Author Organization [employer] Address [address] [place] [address] [address] [place] [address] Care Team Providers Care Executive Manager Name Role Phone Name, Charbel CARRILLO Primary Care Provider [phone] Мария Gudino PharmD Unavailable [phone] Reason for Visit * Reason Onset Date Comments Referral 03/24/2023 Encounter Details Date Type Department Care Team ([facility] st Contact Info) Description 03/24/2023 Telephone [facility] MEDICINE [address] [place], [place] [phone] Name, MD Charbel [address] [place] [address] Referral Social History Tobacco Use Types Packs/Day Years [...] suspected to have Coronavirus/COVID-19? No / Unsure 03/25/2023 9:48 AM EDT documented as of this encounter Miscellaneous Notes * Telephone Encounter - Nayan Chen - 03/24/2023 9:05 AM EDT Tc from pt requesting a new updated referral to be seen at the [facility] stated needs it before her appt on april [id number] Please contact pt at [phone] documented in this encounter Plan of Treatment Upcoming Encounters Date Type Department Care Team (Late st Contact Info) Description 02/04/2025 2:00 PM EDT Telemedicine [facility] MEDICINE [address] [place] [address] Roz Le, RN documented as of this encounter Visit Diagnoses Not on filedocumented in this encounter Additional Health Concerns Assessment Noted Time PHQ-9 Depression Total Score: 0 10/23/20 22 3:25 PM EST documented as of this encounter Care Teams Executive Manager Relationship Specialty Start Date End Date Name, MD Charbel [address] [place] [id number] PCP - General Family Medicine 02/26/16 Мария Gudino PharmD [address] [place] [id number] Pharmacist Internal Medicine 04/29/23 documented as of this encounter
--- OUTSIDE RECORDS SUMMARY | 2025-01-06 13:51 | XMS_ITS | Encounter Summary ---
Author Organization [employer] Address [address] [place] [address] 7 [place] [address] Care Team Providers Care Rn Case Manager Name Role Phone Name, Charbel CARRILLO Primary Care Provider [phone] Мария Gudino PharmD Unavailable [phone] Encounter Details Date Type Department Care Team (Late st Contact Info) Description 05/25/2024 Orders Only [facility] [address] [place] [address] ProviderFantasma MD Social History Tobacco Use Types Packs/Day Years Used Date Smoking Tobacco: Never Smokeless Tobacco: Never Alcohol Use Standard Drinks/Week Comments Never 0 (1 standard drink = 0.6 oz pur e alcohol) Alcohol Answer Date Recorded Frequency of Alcohol Consumption Not on file 05/26/2024 Average Number of Drinks Not on file 024 Frequency of Binge Drinking Not on file 05/17 Score 0 05/26/2024 Depression Answer Date Recorded Patient Health Questionnaire-9 Score 0 03/22/2024 Patient Health Questionnaire-9 Score 0 03/22/2024 Last PHQ-9: Questionnaire Data Not on file 0 03/22/2024 Housing Stability Answer Date Recorded What is your housing situation today? I have sammi lopze 09/01/[address] you li ve. Do you have problems with any of the following? None of the above 09/01/2023 Food Insecurity Answer Date Recorded Within the past 12 months, y ou worried that your food would run out before you got money to buy more: Sometimes True 2023 Within the past 12 months,th e food you bought just didn't last and you didn't have enough money to get more: Sometimes True 05/14/2024 Transportation Answer Date Recorded In the past 12 months, has l ack of transportation kept you from medical appts, meetings, work or from getting things needed for daily living? No 09/01/2023 Utilities Answer Date Recorded In the past 12 months, has t he electric, gas, oil or water company threatened to shut off services in your home? No 09/01/2023 Depression Answer Date Recorded Patient Health Questionnaire-2 Score 0 03/22/2024 Comments Unknown Sex and Gender Information Value Date Recorded Sex Assigned at Female 09/16/2022 10:29 AM EDT Legal Sex Female 10:29 AM EDT Gender Identity Female 03/30/2024 4:35 PM EDT Sexual Orientation Choose not to disclose 2021 10:29 AM EDT documented as of this encounter Plan of Treatment Upcoming Encounters Date Type Department Care Team (Late st Contact Info) Description 02/04/2025 2:00 [place] [address] Roz Le RN documented as of this encounter Goals Goal Patient Goal Type Associated Problems Recent Progress Patient-Stated? Author Record your blood pressure once per day Blood Pressure No Puia, Мария, PharmD Blood Pressure < 140/90 Blood Pressure 132/89(2023 10:37 AM EST) No Puia, Мария, PharmD Patient will adhere to medication regimen General No Puia, Мария, PharmD LDL Calc < 70 Result Component No Puia, Мария, PharmD Note: Per ADA for primary prevention of ASCVD documented as of this encounter Procedures Procedure Name Priority Date/Time Associated Diagnosis Comments DERMATOPATHOLOGY REPORT Routine 05/12/2024 4:16 PM EDT documented in this encounter Results * Dermatopathology Report (05/12/2024 4:16 PM EDT) us Historical Provider LAB BLOOD ORDERABLES Linnea l Result documented in this encounter Visit Diagnoses Not on filedocumented in this encounter Additional Health Concerns Assessment Noted Time PHQ-9 Depression Total Score: 0 03/22/20 24 1:45 PM EDT documented as of this encounter Care Teams Rn Case Manager Relationship Specialty Start Date End Date Name, MD Charbel [address] [place] [address] PCP - General Family Medicine 02/26/16 Мария Gudino PharmD [address] [place] [address] Pharmacist Internal Medicine 04/29/23 documented as of this encounter
--- OUTSIDE RECORDS SUMMARY | 2025-01-06 13:51 | XMS_ITS | Encounter Summary ---
Author Organization [employer] Address [address] [place] [address] 7t [place] [address] Care Team Providers Care Information Scientist Name Role Phone Name, Charbel CARRILLO Primary Care Provider [phone] Мария Gudino PharmD Unavailable [phone] Reason for Visit * Reason Comments Med Refill Encounter Details Date Type Department Care Team ([facility] st Contact Info) Description 12/25/2024 Refill [facility] MED[facility]INE [address] [place], [place] [phone] Name, MD Charbel [address] [place] [address] Social History Tobacco Use Types Packs/Day Years Used Date Smoking Tobacco: Never Passive Smoke Exposure: Never Smokeless Tobacco: Never Alcohol Use Standard [...] your housing situation today? I have sammi lopez 09/01/[address] you li ve. Do you have problems with any of the following? None of the above 09/01/2023 Food Insecurity Answer Date Recorded Within the past 12 months, y ou worried that your food would run out before you got money to buy more: Never True 09/16/2024 Within the past 12 months,th e food you bought just didn't last and you didn't have enough money to get more: Never True Transportation Answer Date Recorded In the past 12 months, has l ack of transportation kept you from medical appts, meetings, work or from getting things needed for daily living? Yes, it has kept me from medical appointments or getting medications. 09/16/2024 Utilities Answer Date Recorded In the past 12 months, has t he electric, gas, oil or water company threatened to shut off services in your home? No 09/01/2023 Depression Answer Date Recorded Patient Health Questionnaire-2 Score 0 03/22/2024 Internet Access Answer Date Recorded Internet Access Q1 Yes 09/16/2024 Internet Access Q2 I do not want or need it 08/19 Comments Unknown Sex and Gender Information Value [...] Info) Description 02/04/2025 2:00 PM EDT Telemedicine [facility] MEDICINE [address] [place] [address] Roz Le RN documented as of this [...] of ASCVD documented as of this encounter Visit Diagnoses Not on filedocumented in this encounter Additional Health Concerns Assessment Noted Time PHQ-9 Depression Total Score: 0 03/22/20 24 1:45 PM EDT documented as of this encounter Care Teams Information Scientist Relationship Specialty Start Date End Date Name, MD Charbel [address] [place] [address] PCP - General Family Medicine 02/26/16 Мария Gudino, FarihaD [address] [place] [address] Pharmacist Internal Medicine 04/29/23 documented as of this encounter
--- OUTSIDE RECORDS SUMMARY | 2025-01-06 13:51 | XMS_ITS | Encounter Summary ---
Author Organization [employer] Address [address] [place] [address] 7t [place] [address] Care Team Providers Care Flight Attendant Name Role Phone Name, Charbel CARRILLO Primary Care Provider [phone] Мария Gudino PharmD Unavailable [phone] Reason for Visit * Reason Comments Med Refill Encounter Details Date Type Department Care Team ([facility] st Contact Info) Description 12/23/2024 Refill [facility] MEDICINE [address] [place], [place] [phone] Lizet Pickering DO [address] [place] [address] Acute pain of right shoulder Social History Tobacco Use Types Packs/Day Years [...] the past 12 months, has t he [employer], gas, oil or water company threatened to [...] Info) Description 02/04/2025 2:00 PM EDT Telemedicine [facility] MEDICINE [address] [place] [address] Roz Le, RN documented as of this encounter Goals [...] documented as of this encounter Visit Diagnoses Diagnosis Acute pain of right shoulder documented in this encounter Additional Health Concerns Assessment Noted Time PHQ-9 Depression Total Score: 0 03/22/20 24 1:45 PM EDT documented as of this encounter Care Teams Flight Attendant Relationship Specialty Start Date End Date Name, MD Charbel [address] [place] [address] PCP - General Family Medicine 02/26/16 Мария Gudino PharmD [address] [place] [address] Pharmacist Internal Medicine 04/29/23 documented as of this encounter
--- OUTSIDE RECORDS SUMMARY | 2025-01-06 13:51 | XMS_ITS | Encounter Summary ---
Author Organization [employer] Address [address] [facility] 7t [place] [address] Care Team Providers Care Call Center Assistant Name Role Phone Name, Charbel CARRILLO Primary Care Provider [phone] Мария Gudino PharmD Unavailable [phone] Reason for Visit * Reason Onset Date Comments Care Coordination 12/30/2024 [facility] program g raduation Encounter Details Date Type Department Care Team ([facility] st Contact Info) Description 12/30/2024 Telephone [facility] [address] [place], [place] [phone] Name, MD Charbel [address] [place] [address] Care Coordination ([facility] program graduation) Social History Tobacco Use Types Packs/Day Years [...] t he electric, gas, oil or water [email or web address] threatened to shut off services in your [...] encounter Miscellaneous Notes * Telephone Encounter - Trinity Boss RN - 12/30/2024 10:58 AM EST CM Trinity Boss RN had previously placed outbound call to the patient with the intentions of graduation from the Care Management Program. Progress towards the set goals has been made and impending graduation from the program has been discussed in detail with the patient during prior conversations. CM placed additional outbound call to the patient to graduate from the program. No answer at this time. LVM introducing herself from [facility] CM Department. CM notified patient of theirgraduation from the Care Management Program. Education provided on how to receive services in the future. CM reinforced direct contact information or CHW for any addition al questions or concerns. [facility]. Patient provided with after-hours line for [facility], , which offer night time triage service and option to transfer to manager solution provider if needed. ROSALIO Boss RN, sent message to PCP Dr. Lyons to inform that program status will be closed forC3 Complex Care Management due to lost contact. documented in this encounter Plan of Treatment Upcoming Encounters Date Type Department Care Team (Late st Contact Info) Description 02/04/2025 2:00 PM EDT Telemedicine [facility]ICINE [address] [place] [address] Roz Le RN documented as of this [...] documented as of this encounter Care Teams Call Center Assistant Relationship Specialty Start Date End Date Name, MD Charbel [address] [place] [address] PCP - General Family Medicine 02/26/16 Puia, Мария, PharmD [address] [place] [address] Pharmacist Internal Medicine 04/29/23 documented as of this encounter
--- OUTSIDE RECORDS SUMMARY | 2025-01-06 13:51 | XMS_ITS | Encounter Summary ---
Author Organization [employer] Address [address] [place] [address] 7t [place] [address] Care Team Providers Care Tablet Tester Name Role Phone Name, Charbel CARRILLO Primary Care Provider [phone] Мария Gudino PharmD Unavailable [phone] Reason for Visit * Reason Comments Med Refill Encounter Details Date Type Department Care Team ([facility] st Contact Info) Description 05/29/2024 Refill [facility] MEDICINE [address] [place], [place] [phone] Name, MD Charbel [address] [place] [address] Social History Tobacco Use Types Packs/Day Years [...] got money to buy more: Sometimes True 06/28/ 2024 Within the past 12 months,th e food [...] Info) Description 02/04/2025 2:00 PM EDT Telemedicine [facility] MEDICINE [address] [place] [address] Roz Le RN documented as of this [...] documented as of this encounter Care Teams Tablet Tester Relationship Specialty Start Date End Date Name, MD Charbel [address] [place] [address] PCP - General Family Medicine 02/26/16 Мария Gudino, PharmD [address] [place] [address] Pharmacist Internal Medicine 04/29/23 documented as of this encounter
--- OUTSIDE RECORDS SUMMARY | 2025-01-06 13:51 | XMS_ITS | Encounter Summary ---
Author Organization [employer] Address [address] [facility] 7t [place] [address] Care Team Providers Care Snuff Grinder Name Role Phone Name, Charbel CARRILLO Primary Care Provider [phone] Мария Gudino PharmD Unavailable [phone] Reason for Visit * Reason Comments Care Coordination Outreach Encounter Details Date Type Department Care Team (Latest Contact Info) Description 12/30/2024 Patient Outreach [facility] [address] [place], [place] [phone] Name, MD Charbel [address] [place] [address] Care Coordination (Outreach) Social History Tobacco Use Types Packs/Day Years [...] the past 12 months, has t he [email or web address], gas, oil or water [employer] threatened to shut off services in your [...] AM EDT documented as of this encounter Progress Notes * Ramona Darling - 12/30/2024 11:08 AM EST CHW Ramona Darling placed three outbound calls to patient for follow up in the Care Management Program. LVM with each call requesting call back to CHW [phone]. Patient's name, and Address was not confirmed. CHW did not receive any return calls from the patient. On last call, CHW notified patient that if a return call was not received, then the program will be closed. CHW did not receive a return call; therefore, the case will be closed due to lost contact. documented in this encounter Plan of Treatment Upcoming Encounters Date Type Department Care Team (Late st Contact Info) Description 02/04/2025 2:00 PM EDT Telemedicine [facility] [address] [place] [address] Roz Le RN documented as of this encounter Goals Goal Patient Goal Type Associated Problems Recent Progress Patient-Stated? Author Record your blood pressure once per day Blood Pressure No PuMonique jovelsa, PharmD Blood Pressure < 140/90 Blood Pressure 132/89(2023 10:37 AM EST) No Мария Gudino, PharmD Patient will adhere to medication regimen General No PuRichard jovelyssa, PharmD LDL Calc < 70 Result Component No Richard Gudinoyssa, PharmD Note: Per ADA for primary prevention of ASCVD documented as of this encounter Visit Diagnoses Not on filedocumented in this encounter Additional Health Concerns Assessment Noted Time PHQ-9 Depression Total Score: 0 03/22/20 24 1:45 PM EDT documented as of this encounter Care Teams Snuff Grinder Relationship Specialty Start Date End Date Name, MD Charbel [address] [place] [address] PCP - General Family Medicine 02/26/16 Мария Gudino PharmD [address] [place] [address] Pharmacist Internal Medicine 04/29/23 documented as of this encounter
--- OUTSIDE RECORDS SUMMARY | 2025-01-06 13:52 | XMS_ITS | Clinical Summary ---
Author Organization [employer] Address [address] [place] [address] 7 [place] [address] Care Team Providers Care Control System Computer Scientist Name Role Phone Name, Charbel CARRILLO Primary Care Provider [phone] Мария Gudino PharmD Unavailable [phone] Allergies Active Allergy Reactions Criticality Noted Date Comments Acetaminophen 10/26/2018 Other reaction(s): Other (see comments) Unable to take due to liver issues Pt states she gets hives 10/17/2020 Other Reaction(s): Unknown Level of certainty: Moderately Certain Fruit Extracts 05/27/2023 Ibuprofen 10/26/2018 Other reaction(s): Other (see comments) Due to Crhons Pt states she gets hives 10/17/2020 Other Reaction(s): Unknown Level of certainty: Moderately Certain Iodinated Contrast Media Hives,Rash Low 01/18/2016 Other reaction(s): Other (see comments) Other reaction(s): hives, itchy Iodine Wheezing High 02/26/2016 Other reaction(s): Hives / Skin Rash/SOB Other reaction(s): Hives/Urticaria, Other (see comments) Latex Anaphylaxis,Hives,It fan High 09/09/2006 Other reaction(s): Other (see comments) Other Reaction(s): Unknown Level of certainty: Moderately Certain Lisinopril Rash Low 05/26/2024 Level of certainty: Moderately Certain Mangifera Indica Swelling 02/24/2015 Other reaction(s): Hives / Skin Rash,SOB Orovada Flavoring Agent (Non-Screening) Wheezing 05/30/2009 Hives/rash/sob Other reaction(s): Hives/Urticaria, Other (see comments) Metformin Rash Low 08/01/2021 Other reaction(s): Other (see comments) Level of certainty: Moderately Certain Nsaids 08/01/2021 Other reaction(s): Other (see comments) Patient tolerated aspirin Patient tolerated aspirin Passion Fruit Flavoring Agent (Non-Screening) 05/30/2009 Other reaction(s): Hives/Urticaria, Numbness, tingling or swelling of the lips, tongue or mouth, Other (see comments) Other Reaction(s): Unknown Level of certainty: Moderately Certain Penicillin G 02/26/2016 Other reaction(s): Hives / Skin Rash, SOB Penicillins Hives,Itching,Swelli ng,Wheezing 02/24/2015 Other reaction(s): Hives/Urticaria, Other (see comments) Other Reaction(s): Unknown Level of certainty: Moderately Certain Shellfish Allergy Anaphylaxis High 05/27/2023 Other Reaction(s): Other (See Comments) Other Reaction(s): throat closes, itchy Other Reaction(s): Unknown Level of certainty: Moderately Certain Shellfish-Derived Products Swelling 02/24/2015 Medications buPROPion XL (Wellbutrin XL) 300 MG 24 hr tablet Take 1 tablet by mouth 1 (one) time each day. Active clonazePAM (KlonoPIN) 1 MG tablet Take 1 tablet by mouth in the morning, at noon, in the evening, and at bedtime. Active SUMAtriptan (Imitrex) 25 MG tablet Take 1 tablet by mouth every 2 (two) hours if needed. Oral route after onset of migraine repeat after 2 hours if headache returns not to exceed 200mg in 24 hours Active Umeclidinium Coleman (Incruse Ellipta) 62.5 MCG/ACT aerosol powder Inhale 1 puff 1 (one) time each day. Active empagliflozin (Jardiance) 25 MG Take 1 tablet by mouth in the morning. Active levalbuterol (Xopenex) 1.25 MG/3ML nebulizer solution Inhale 3 mL every 6 (six) hours if needed for shortness of breath. Active Misc. Devices (Pulse Oximeter) misc Use as Directed Active levalbuterol (Xopenex) 45 MCG/ACT inhaler Inhale 2 puffs every 6 (six) hours if needed for shortness of breath. 022 Active zolpidem (Ambien) 10 MG tablet Take 1 tablet by mouth if needed at bedtime. Active insulin pen needle (BD Pen Needle Yajaira U/F) 32G x 4 mm misc Inject under the skin in the morning, at noon, and at bedtime. Use as instructed Active ARIPiprazole (Abilify) 20 MG tabletIndications :Bipolar affective disorder, remission status unspecified (CMS/HCC) Take 1 tablet (20 mg) by mouth in the morning. 30 tablet 2 023 Active Breo Ellipta 200-25 MCG/ACT aerosol powder INHALE 1 PUFF BY MOUTH DAILY 023 Active Roflumilast 500 MCG tablet Take 1 tablet by mouth 1 (one) time each day. 023 Active OXcarbazepine (Trileptal) 150 MG tablet Take 150 mg by mouth in the morning. 023 Active Blood Pressure kit Use daily 1 kit 023 Active insulin glargine (Lantus SoloStar) 100 UNIT/ML pen Inject 32 Units under the skin Once daily. 023 Active hydroxychloroquin e (Plaquenil) 200 MG tablet Take 1 tablet by mouth 2 times daily. 023 Active pilocarpine (Salagen) 5 MG tablet Take 5 mg by mouth 3 times daily. 023 Active Alcohol Swabs (B-D SINGLE USE SWABS REGULAR) pads USE NEEDED 6 TIMES A DAY 200 each 5 023 Active biotin 5000 MCG tablet Take 1 tablet by mouth in the morning. 023 Active senna-docusate sodium (Senokot-S) 8.6-50 MG tabletIndications :Constipation, unspecified constipation type 2 tablets by mouth once daily 180 tablet 1 Active melatonin 5 MG tablet Take 1 tablet (5 mg) by mouth at bedtime. 90 tablet 1 Active FREESTYLE LITE test strip 1 each by Other route 3 times daily. Use to test blood sugar three times daily as directed Active insulin lispro (HumaLOG) 100 UNIT/ML injection ADMINISTER 3 TO 13 UNITS UNDER THE SKIN THREE TIMES DAILY BEFORE MEALS DIRECTED PER SLIDING SCALE 15 mL 3 Active OXcarbazepine (Trileptal) 300 MG tablet Take 300 mg by mouth at bedtime. Active doxepin (SINEquan) 25 MG capsule TAKE 1 CAPSULE BY MOUTH EVERY DAY AT NIGHT Active lidocaine (Lidoderm) 5 % patch APPLY 1 PATCH EVERY MORNING REMOVE AND DISCARD PATCH WITHIN 12 HOURS DIRECTED BY PERSCRIBER 30 patch 2 Active montelukast (Singulair) 10 MG tablet Take 1 tablet by mouth Once per day. Active aspirin 81 MG EC tabletIndications :Type 2 diabetes mellitus with hyperglycemia, with long-term current use of insulin (CMS/[facility]) Take 1 tablet (81 mg) by mouth Once per day. 90 tablet Active atorvastatin (Lipitor) 40 MG tabletIndications :Type 2 diabetes mellitus with hyperglycemia, with long-term current use of insulin (CMS/[facility]),Hyperli pidemia, unspecified hyperlipidemia type Take 1 tablet (40 mg) by mouth Once per day. 90 tablet Active minoxidil (Loniten) 2.5 MG tablet Take 1 tablet (2.5 mg) by mouth Once per day. 30 tablet 024 2024 Active Xolair 75 MG/0.5ML injection Active Trulicity 4.5 MG/0.5ML solution pen-injector Inject 4.5 mg under the skin 1 (one) time per week. 4 each 024 2024 Active gabapentin (Neurontin) 400 MG capsuleIndication s:Chronic pain syndrome TAKE 1 CAPSULE(400 MG) BY MOUTH TWICE DAILY 60 capsule 3 Active celecoxib (CeleBREX) 200 MG capsule TAKE 1 CAPSULE BY MOUTH EVERY MORNING 30 capsule 11 Active docusate sodium (Colace) 100 MG capsule Take 1 capsule by mouth if needed in the morning and at bedtime for constipation. Active EPINEPHrine (Epipen) 0.3 MG/0.3ML injection syringe INJECT 0.3MG IN THE MUSCLE EVERY 10 MINUTES NEEDED FOR ANAPHYLAXIS Active Artificial Tears 0.2-0.2-1 % solution INSTILL 1 DROP INTO EVERY 4 TO 6 HOURS NEEDED FOR DRY EYE Active valsartan-hydroCH LOROthiazide (Diovan-HCT) 320-25 MG tabletIndications :Essential hypertension Take 1 tablet by mouth Once per day. 90 tablet 2 Active hydrALAZINE (Apresoline) 10 MG tabletIndications :Essential hypertension Take 1 tablet (10 mg) by mouth 2 times daily. 180 tablet 1 Active carvedilol (Coreg) 25 MG tablet Take 1 tablet (25 mg) by mouth with breakfast and with evening meal. 180 tablet 2 024 2024 Active Blood Glucose Monitoring Suppl (Royalty Exchange Geyser Lite) w/Device kit Use to test blood sugar 3 times daily 1 kit Active FreeStyle lancets USE ONE LANCET THREE TIMES DAILY 100 each 11 Active loratadine (Claritin) 10 MG tablet Take 1 tablet by mouth Once per day. Active oxyCODONE (Roxicodone) 10 MG immediate release tabletIndications :Chronic pain syndrome Take 1 tablet (10 mg) by mouth every 6 (six) hours if needed for severe pain for up to 28 days. 112 tablet 025 2024 Active mometasone (Elocon) 0.1 % ointment APPLY TOPICALLY TO THE AFFECTED AREA IN THE MORNING 15 g Active sucralfate (Carafate) 1 g tabletIndications :Vomiting and diarrhea TAKE 1 TABLET BY MOUTH BEFORE BREAKFAST, LUNCH, EVENING MEAL, AND AT BEDTIME X 14 DAYS 56 tablet 025 Active fluocinolone (Synalar) 0.01 % external solution APPLY TOPICALLY TO THE AFFECTED AREA TWICE DAILY 60 mL 1 025 Active nystatin-triamcin olone (Mycolog II) ointmentIndicatio ns:Hyperglycemia APPLY TOPICALLY TO THE AFFECTED AREA TWICE DAILY 15 g 1 025 Active azelastine (Optivar) 0.05 % ophthalmic solution INSTILL 1 DROP IN BOTH EYES TWICE DAILY 6 mL 2 025 Active loperamide (Imodium) 2 MG capsuleIndication s:Vomiting and diarrhea TAKE 1 TO 2 CAPSULES BY MOUTH IF NEEDED IN THE MORNING, AT NOON, EVENING, AND AT BEDTIME FRO DIARRHEA FOR UP TO 10 DAYS 30 capsule 025 Active ondansetron (Zofran) 4 MG tabletIndications :Vomiting and diarrhea TAKE 1 TABLET(4 MG) BY MOUTH EVERY 8 HOURS FOR UP TO 13 DAYS NEEDED FOR NAUSEA OR VOMITING 20 tablet 1 025 Active baclofen (Lioresal) 10 MG tabletIndications :Acute pain of right shoulder TAKE 1 TABLET BY MOUTH EVERY DAY FOR UP TO 20 DAYS NEEDED FOR MUSCLE SPASMS 60 tablet 025 Active Diclofenac Sodium 1 % gel APPLY 2 GRAMS TOPICALLY TO THE AFFECTED AREA TWICE DAILY 100 g 1 025 Active fluticasone (Flonase) 50 MCG/ACT nasal spray 2 SPRAYS IN EACH NOSTRIL ONCE A DAY 48 g 025 Active pantoprazole (ProtoNix) 40 MG EC tablet TAKE 1 TABLET(40 MG) BY MOUTH BEFORE BREAKFAST. DO NOT CRUSH, CHEW, OR SPLIT 90 tablet 025 Active fluticasone (Flonase) 50 MCG/ACT nasal spray Administer 2 sprays into affected nostril(s) 1 (one) time each day. 020 2024 Discontinued mometasone (Elocon) 0.1 % ointment APPLY TOPICALLY TO THE AFFECTED AREA IN THE MORNING 15 g 024 2024 Discontinued ondansetron (Zofran) 4 MG tabletIndications :Vomiting and diarrhea Take 1 tablet (4 mg) by mouth every 8 (eight) hours if needed for nausea or vomiting for up to 13 days. 20 tablet 1 024 2024 Discontinued loperamide (Imodium A-D) 2 MG tabletIndications :Vomiting and diarrhea Take 1-2 tablets (2-4 mg) by mouth if needed in the morning, at noon, in the evening, and at bedtime for diarrhea for up to 10 days. 30 tablet 024 2024 Discontinued sucralfate (Carafate) 1 g tabletIndications :Vomiting and diarrhea Take 1 tablet (1 g) by mouth before breakfast, before lunch, before evening meal, and at bedtime for 14 days. 56 tablet 024 2024 Discontinued nystatin-triamcin olone (Mycolog II) ointmentIndicatio ns:Hyperglycemia APPLY TOPICALLY TO THE AFFECTED AREA TWICE DAILY 15 g 1 024 2024 Discontinued fluocinolone (Synalar) 0.01 % external solution Apply topically 2 times daily. 60 mL 1 024 2024 Discontinued azelastine (Optivar) 0.05 % ophthalmic solution Administer 1 drop into both eyes 2 times daily. 6 mL 2 024 2024 Discontinued baclofen (Lioresal) 10 MG tabletIndications :Acute pain of right shoulder TAKE 1 TABLET BY MOUTH EVERY DAY FOR UP TO 20 DAYS NEEDED FOR MUSCLE SPASMS 60 tablet 024 2024 Discontinued(R eorder (will not trigger notification to Pharmacy)) Diclofenac Sodium 1 % gel APPLY 2 GRAMS TOPICALLY TO THE AFFECTED AREA TWICE DAILY 100 g 1 024 2024 Discontinued(R eorder (will not trigger notification to Pharmacy)) pantoprazole (ProtoNix) 40 MG EC tablet Take 1 tablet by mouth Once per day. 024 2024 Discontinued oxyCODONE (Roxicodone) 10 MG immediate release tabletIndications :Chronic pain syndrome Take 1 tablet (10 mg) by mouth every 6 (six) hours if needed for severe pain for up to 28 days. 112 tablet 025 2024 Discontinued(R eorder (will not trigger notification to Pharmacy)) Active Problems Problem Noted Date Diagnosed Date Retinal vein occlusion of right eye 10/07/2024 Overview (10/07/2024): . Long-term current use of opiate analgesic 2023 Overview (07/27/2024): Medication: oxycodone 10mg Q6H PRN Indication: cervical spondylosis, fibromyalgia, chronic right knee pain Last PSYCHOLOGY INTERN Agreement: 10/23/23 Additional considerations/risk factors: multiple sedating medications - also prescribed clonazepam, zolpidem, and gabapentin S/P endometrial ablation 09/24/2023 023 GERD with apnea 08/27/2023 08/27/2023 Hemorrhoids 08/12/2023 08/27/2023 H/O hyperlipidemia 05/27/2023 Herniated disc, cervical 05/27/2023 Overview (05/25/2024): Cervical MRI 05/15/2020: IMPRESSION: Multilevel cervical spondylosis. At C7-T1 there is slight anterior subluxation the setting of advanced bilateral hypertrophic facet arthropathy contributing to moderate to severe right-sided foraminal stenosis with potential mass effect on the exiting right C8 nerve root. Additional spondylitic changes as discussed in detail above. No severe central canal stenosis. Assessment & Plan (07/27/2024 8:42 PM EDT): -Encouraged multifactorial approach to pain control including pharm and non- pharm modalities -UTOX and Pill Count as expected Assessment & Plan (05/25/2024 5:03 PM EDT): -Encouraged multifactorial approach to pain control including pharm and non- pharm modalities -UTOX and Pill Count as expected Assessment & Plan (03/30/2024 8:17 PM EDT): -Good engagement and participation with Group Medical Visit model, today was first visit. -Encouraged multifactorial approach to pain control including pharm and non- pharm modalities -UTOX and *Pill Count as expected Right shoulder pain 05/27/2023 Overview (05/27/2023): Used to be seen for PM at [facility], got injections, not better, ref to Ortho ([facility]), seen in November 2015 Ref for MRI (see report below) Result type: MRI Joint Ext Upper W/O Contrast Right Result date: 08 January 2016 14:49 Result status: Auth (Verified) Result title: MRI Joint Ext Upper W/O Contrast Right Performed by: Dipti Cast MD on 09 January 2016 14:38 Verified by: Dipti Cast MD on 09 January 2016 14:38 Encounter info: [id number], GARCIA MRI [facility], 01/08/2016 - 01/15/2016 * Final Report * Reason For Exam rt shoulder pain RCT;rt shoulder pain RCT RESULT: MRI Joint Ext Upper W/O Contrast Right [facility] VISIT NUMBER :[id number] Patient Name : Sade Izaguirre Date of : 1970 Date of Exam : 01/08/2016 Referring Physician : GINA CROFT [address], Attn: [place] [address] Exam : MR - SHOULDER (C-) CPT 74402 - RIGHT Room Description : [facility] Espr 2 1.5 Technique : Ax PD Fsat, Cor T2, Cor PD Fsat, Sag PD Fsat, Sag T1 Final Report Clinical History: Right shoulder pain, evaluate for rotator cuff tear. The patient reports severe right shoulder pain occurring daily since November 2014 with no is a fall, poor range of motion. Technique: MRI of the right shoulder was performed without intravenous contrast. Comparison: No prior pertinent study is available for comparison. . Findings: Rotator cuff: There is intermediate signal in the supraspinatus tendon, consistent with tendinopathy. The infraspinatus, teres minor and subscapularis tendons are intact. There is normal muscle bulk. Glenoid labrum and biceps tendon: There is no displaced labral tear. The biceps tendon is in the groove. AC joint: Mild degenerative changes of the acromioclavicular joint with bony proliferation and subchondral edema. Articular cartilage: The articular cartilage is of normal thickness. No focal defects are seen. Bone: The bone and bone marrow are normal. Impression: 1. No evidence of rotator cuff tear. 2. Supraspinatus tendinopathy. 3. Mild acromioclavicular joint degenerative changes. ----- PHYSICIAN : DIPTI CAST MD (Signature on file) 01/09/2016 Signature Line Dictated By: Dipti Cast MD Dictated Date/Time: 01/09/16 2:38 pm Reviewed By: Dipti Cast MD Signed By: Dipti Cast MD Signed Date/Time: 01/09/16 2:38 pm Transcribed By: TS Transcribed Date/Time: 01/09/16 2:38 pm MRI Joint Ext Upper W/O Contrast Right This document has an image Pain in right shoulder 05/27/2023 3 Overview (08/27/2023): Used to be seen for PM at [facility], got injections, not better, ref to Ortho ([facility]), seen in November 2015 Ref for MRI (see report below) Result type: MRI Joint Ext Upper W/O Contrast Right Result date: 08 January 2016 14:49 Result status: Auth (Verified) Result title: MRI Joint Ext Upper W/O Contrast Right Performed by: Dipti Cast MD on 09 January 2016 14:38 Verified by: Dipti Cast MD on 09 January 2016 14:38 Encounter info: [id number], [facility], 01/08/2016 - 01/15/2016 * Final Report * Reason For Exam rt shoulder pain RCT;rt shoulder pain RCT RESULT: MRI Joint Ext Upper W/O Contrast Right [facility] VISIT NUMBER :[id number] Patient Name : Sade Izaguirre Date of : 1970 Date of Exam : 01/08/2016 Referring Physician : GINA CROFT [address], Attn: [place] [address] Exam : MR - SHOULDER (C-) CPT 64985 - RIGHT Room Description : [facility] 2 1.5 Technique : Ax PD Fsat, Cor T2, Cor PD Fsat, Sag PD Fsat, Sag T1 Final Report Clinical History: Right shoulder pain, evaluate for rotator cuff tear. The patient reports severe right shoulder pain occurring daily since November 2014 with no is a fall, poor range of motion. Technique: MRI of the right shoulder was performed without intravenous contrast. Comparison: No prior pertinent study is available for comparison. . Findings: Rotator cuff: There is intermediate signal in the supraspinatus tendon, consistent with tendinopathy. The infraspinatus, teres minor and subscapularis tendons are intact. There is normal muscle bulk. Glenoid labrum and biceps tendon: There is no displaced labral tear. The biceps tendon is in the groove. AC joint: Mild degenerative changes of the acromioclavicular joint with bony proliferation and subchondral edema. Articular cartilage: The articular cartilage is of normal thickness. No focal defects are seen. Bone: The bone and bone marrow are normal. Impression: 1. No evidence of rotator cuff tear. 2. Supraspinatus tendinopathy. 3. Mild acromioclavicular joint degenerative changes. ----- PHYSICIAN : DIPTI CAST MD (Signature on file) 01/09/2016 Signature Line Dictated By: Dipti Cast MD Dictated Date/Time: 01/09/16 2:38 pm Reviewed By: Dipti Cast MD Signed By: Dipti Cast MD Signed Date/Time: 01/09/16 2:38 pm Transcribed By: TS Transcribed Date/Time: 01/09/16 2:38 pm MRI Joint Ext Upper W/O Contrast Right This document has an image Osteoarthritis of right knee 02/05/2023 Overview (02/05/2023): Severe, follows at [facility] Was told too young for TKR Urinary incontinence 10/04/2022 Chronic kidney disease, stage 2 (mild) 2 Dyspareunia 08/21/2022 Osteoarthritis 08/21/2022 Type 2 diabetes mellitus wit h diabetic chronic kidney disease 08/01/2021 Obese 07/05/2019 Pulmonary nodules 07/05/2019 History of thoracic surgery 04/20/2019 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 Hoarseness 12/24/2018 Tracheomalacia, acquired 09/09/2018 Non-cardiac chest pain 08/18/2018 Seborrheic dermatitis of scalp 08/18/2018 Chronic knee pain 07/24/2018 Colon polyps 07/24/2018 Allergic rhinitis 06/23/2018 Moderate persistent asthma 04/29/2018 Foot swelling 11/03/2017 Swelling of hand 11/03/2017 Essential hypertension 09/24/2017 Gastroesophageal reflux disease without esophagi tis 09/24/2017 Sjogren syndrome, unspecified 09/24/2017 Moderate manic bipolar I disorder 07/05/2016 Non-specific colitis 05/13/2016 CJ (obstructive sleep apnea) 02/26/2016 Migraine 01/04/2009 Hyperlipidemia 01/26/2008 GERD (gastroesophageal reflux disease) 7 08/27/2023 Anxiety 07/02/2007 Fibromyalgia 09/09/2006 Overview (05/27/2023): chronic back pain and knee pain R>L Depression 09/09/2006 Overview (05/27/2023): [facility] Carpal tunnel syndrome 09/09/2006 Constipation due to opioid therapy 09/09/2006 Resolved Problems Problem Noted Date Diagnosed Date Resolved Date Coronary atherosclerosis 10/04/202204/2024 Pneumonia due to COVID-19 virus 10/04/2022 03/22/2024 Steroid-induced diabetes 10/23/202004/2024 Steroid-induced diabetes mellitus 10/23/2020 023 03/22/2024 Cough 08/21/2018 03/22/2024 Tachycardia 06/23/2018 03/22/2024 Mild intermittent asthma 11/03/2017 Opioid dependence 05/13/2016 07/27/2024 Gestational diabetes mellitus 02/26/2016 03/22/2024 Hypertensive disorder 02/26/20162023 Hypertension 09/28/2014 08/27/2023 03/22/2024 Asthma 09/09/2006 03/22/2024 Encounters Date Type Department Care Team Description 12/30/2024 Patient Outreach [facility] [address] [place] [address] Charbel Lyons MD Care Coordination (Outreach) 12/30/2024 Telephone [facility] [address] [place], [place] [phone] Charbel Lyons MD Care Coordination ([facility] program graduation) 12/25/2024 Refill [facility] [address] [place] [address] Charbel Lyons MD 12/23/2024 Refill [facility] [address] [place], [place] [phone] Lizet Pickering DO Acute pain of right shoulder 12/23/2024 Refill [facility] [address] [place] [address] Charbel Lyons MD Vomiting and diarrhea; Hyperglycemia; Acute pain of right shoulder 12/21/2024 Refill [facility] [address] [place] [address] Charbel Lyons MD Chronic pain syndrome 12/21/2024 Telephone [facility] [address] [place] [phone] Jyoti Medina [place] 12/17/2024 Patient Outreach [facility] [address] [place], [place] [phone] Charbel Lyons MD Care Coordination (Outreach) 12/02/2024 Patient Outreach [facility] [address] [place], [place] [phone] Charbel Lyons MD Care Coordination (Outreach) 11/23/2024 Telephone [facility] [address] [place] [phone] Charbel Lyons MD Durable Medical Equipment 11/22/2024 9:30 AM EST Telemedicine [facility] [address] [place] [phone] Roz Le RN Fibromyalgia 11/22/2024 Patient Outreach [facility] [address] [place] [address] Charbel Lyons MD Care Coordination (Outreach) 11/22/2024 Telephone [facility] [address] [place] [phone] Roz Le RN PSYCHOLOGY INTERN Tele Renewal today 11/22/2024 Travel 11/19/2024 Refill [facility] [address] [place] [phone] Charbel Lyons MD Chronic pain syndrome 11/15/2024 Telephone [facility] [address] [place] [address] Charbel Lyons MD 11/12/2024 Telephone [facility] [address] [place] [phone] Roz Le RN [facility] Tele PSYCHOLOGY INTERN RV today 11/12/2024 Telephone [facility] [address] [place] [phone] Roz Le, ARLINE Recommend PSYCHOLOGY INTERN Tele Tier 2 11/02/2024 Patient Outreach [facility] [address] [place] [address] Charbel Lyons MD Care Coordination (Outreach) 10/21/2024 Patient Outreach [facility] [address] [place] [address] Charbel Lyons MD Care Coordination (Outreach) 10/21/2024 Refill [facility] [address] [place] [phone] Charbel Lyons MD Chronic pain syndrome 10/08/2024 Refill [facility] [address] [place] [phone] Charbel Lyons MD 10/07/2024 10:00 AM EST Office Visit [facility] [address] [place] [phone] Charbel Lyons MD Retinal vein occlusion of right eye, unspecified retinal vein (Primary Dx); Essential hypertension; Type 2 diabetes mellitus with chronic kidney disease, with long-term current use of insulin, unspecified CKD stage ([facility]) 10/06/2024 Patient Outreach [facility] [address] [place] [phone] Charbel Lyons MD Care Coordination (Outreach) from Last 3 Months Immunizations Name Administration Dates Next Due HepB-CpG 07/07/2023,04/01/2023 Influenza injectable quadriv alent IIV4 with preservative 08/18/2018,09/24/2017,08/09/2016 Influenza injectable quadriv alent preservative free 08/27/2023,08/06/2022,10/23/2021,08/19,08/17/2019,10/09/2014,12/05/2009 ,08/08/2008,09/30/2006 Influenza, IIV3, injectable 10/23/2021,1 ,08/17/2019,08/18,09/24/2017,08/09/2016,10/09/2014 ,12/05/2009,08/08/2008,09/30/2006 Influenza, Unspecified 10/23/2021,2019,08/17/2019,08/18,09/24/2017,08/09/2016 Influenza, seasonal, injecta ble, preservative free 08/17/2024 Moderna Covid-19 Vaccine 12+ 08/26/2022, 03/14/2022,11/13/2021,02/22,01/25/2021 Moderna Covid-19 Vaccine 6+ Bivalent 08/26/2022 Novel [id number], preservative-free 12/05/2009 PPD Test 12/10/2006 Pfizer Covid-19 Vaccine 12+ 09/24/2023 Pneumococcal Conjugate PCV 20 04/01/2023 Pneumococcal Polysaccharide PPSV23 05/30/2009 TD (adult), 2 Lf tetanus tox oid, preservative free, adsorbed 09/30/2006 Td (adult) 09/30/2006 Td (adult), unspecified 09/30/2006 Tdap 11/03/2017 Zoster, Recombinant 07/07/2023,04/01/2023 Social History Tobacco Use Types Packs/Day Years Used Date Smoking Tobacco: Never Passive Smoke Exposure: Never Smokeless Tobacco: Never Tobacco Cessation:Counseling Given: Not Answered Alcohol Use Standard Drinks/Week Comments Never 0 [...] not to disclose 2021 10:29 AM EDT Last Filed Vital Signs Vital Sign Reading Time Taken Comments Blood Pressure 132/89 10/07/2024 10:37 AM EST Pulse 70 10/07/2024 10:08 AM EST Temperature 34.3 ??C (93.7 ??F) 10/07/2024 1 0:08 AM EST Respiratory Rate 20 10/07/2024 10:0 8 AM EST Oxygen Saturation 99% 10/07/2024 10: 08 AM EST Inhaled Oxygen Concentration - - Weight 79.3 kg (174 lb 12.8 oz) 024 10:08 AM EST Height 165.1 cm (5' 5 ) 10/07/2024 10:0 8 AM EST Body Mass Index 29.09 10/07/2024 10:08 AM EST Plan of Treatment Upcoming Encounters Date Type Department Care Team (Late st Contact Info) Description 02/04/2025 2:00 PM EDT Telemedicine [facility] MEDICINE [address] [place] [address] Roz Le, RN Health Maintenance Due Date Last Done Comments CT Colonography 1969 FIT DNA/Cologuard 1969 FIT 1969 FOBT 1969 HIV Screening 1969 Sigmoidoscopy 1969 Diabetes: Foot Exam 1979 Pap Smear 1990 Cervical Cancer Screening 1999 HPV/Cotest 1999 COVID-19 Vaccine ( season) 2024 09/24/2023, 08/26/2022, 08/26/2022, Additional history exists Diabetes: Hemoglobin A1C 02/15/2025 024, 03/22/2024, 09/24/2023, Additional history exists Eye Exam 03/11/2025 03/11/2024 Depression Screening 03/22/2025 03/22/2024, 03/22/20 24 Lipid Panel 05/17/2025 05/17/2024, 02/16, 06/26/2021 Alcohol/Substance Use Screening 05/26/2025 05/26/2024 Mammogram 06/17/2025 06/17/2024 Tobacco Screening 08/17/2025 08/17/2024 SDOH Screening 09/16/2025 09/16/2024 DTaP/Tdap/Td Vaccines (2 - Td or Tdap) 11/03/2027 11/03/2017, 09/30/2006, 09/30/2006, Additional history exists Colonoscopy 12/15/2029 12/15/2019 Colorectal Cancer Screening 12/15/2029 RSV Patients and Patients Aged 60 years or older (1 - 1-dose 75+ series) 02/18/2044 Pneumococcal Vaccine: 50+ Years Completed 04/01/2023, 05/30/2009 Hepatitis B Vaccines Completed 07/07/2023, 04/01/20 23 Zoster Vaccines Completed 07/07/2023, 04/01/2023 Hepatitis C Screening Completed 07/20/2024 Influenza Vaccine Completed 08/17/2024, , 08/06/2022, Additional history exists HIB Vaccines Aged Out No longer eligi ble based on patient's age to complete this topic HPV Vaccines Aged Out No longer eligi ble based on patient's age to complete this topic Hepatitis A Vaccines Aged Out No long er eligible based on patient's age to complete this topic IPV Vaccines Aged Out No longer eligi ble based on patient's age to complete this topic Meningococcal Vaccine Aged Out No carlos dory eligible based on patient's age to complete this topic RSV under 20 months Aged Out No longe r eligible based on patient's age to complete this topic Rotavirus Vaccines Aged Out No longer eligible based on patient's age to complete this topic Goals Goal Patient Goal Type Associated Problems Recent Progress Patient-Stated? Author Record your blood pressure once per day Blood Pressure No Мария Gudino, PharmD Blood Pressure < 140/90 Blood Pressure 132/89(2023 10:37 AM EST) No Мария Gudino, PharmD Patient will adhere to medication regimen General No Мария Gudino, PharmD LDL Calc < 70 Result Component No Мария Gudino PharmTereza Note: Per ADA for primary prevention of ASCVD Procedures Procedure Name Priority Date/Time Associated Diagnosis Comments POCT GLUCOSE Routine 10/07/2024 10:21 AM EST Type 2 diabetes mellitus with chronic kidney disease, with long-term current use of insulin, unspecified CKD stage (CMS/HCC) POCT GLYCATED HEMOGLOBIN, TOTAL Routine 08/17/2024 1:22 PM EDT Type 2 diabetes mellitus with hyperglycemia, with long-term current use of insulin (CMS/HCC) HEPATITIS PANEL, GENERAL Routine 07/20/2024 8:40 AM EDT MAMMOGRAPHY Routine 06/17/2024 LIPID PANEL, STANDARD Routine 05/17/2024 10:55 AM EDT DIABETES EYE EXAM Routine 03/11/2024 COLONOSCOPY Routine 12/15/2019 from Last 3 Months or Most Recently Relevant to Health Maintenance Results * POCT Glucose (10/07/2024 10:21 AM EST) Glucose Blood, POC 95 60 - 200 mg/dL QC Media Lot # [id number] Lot# Expiration Date Blood Capillary blood specimen / Unknown 10/07/2024 10:21 AM EST us Charbel Lyons MD POINT OF CARE TEST ENTER/EDIT OR DERABLES Final Result * POCT HGB A1C (08/17/2024 1:22 PM EDT) Hemoglobin A1C 5.9 4.0 - 6.0 % QC Media Lot # [id number] Lot# Expiration Date [id number] Blood 08/17/2024 1:22 PM EDT Charbel Lyons MD POINT OF CARE TEST ENTER/EDIT OR DERABLES Final Result * Hepatitis Panel, General (07/20/2024 8:40 AM EDT) Pathologist [facility] [place] Hepatitis A IgM Nonreactive Nonreactive [facility] Comment:IgM antibodies to [place] V not detected; does not exclude earlyacute or recovered HAV infection. ~Hepatitis B Surface Antibody REACTIVE Nonreactive [facility] Comment:REACTIVE: > 11.99 mI U/mL Hepatitis B Core Antibody Nonreactive Nonreactive [facility] Hepatitis C Antibody Nonreactive Nonreactive [facility] Comment:Antibodies to HCV no t detected; does not exclude early acuteHCV infection. Hepatitis B Surface Ag Negative Negative [facility] 07/20/2024 8:40 AM EDT 07/20/2024 8:40 AM EDT Generic External Data Provider LAB BLOOD ORDERAB LES Final Result [facility] [address] [place] [address] [phone] * Mammography (06/17/2024) HM Mammogram BIRADS 1 Normal, Abnormal, BIRADS 1 , BIRADS 2 Anatomical Region Laterality Modality Other Charbel Lyons MD HEALTH MAINTENANCE Final Result * Lipid Panel, Standard (05/17/2024 10:55 AM EDT) Triglycerides 112 <150 mg/dL [facility] Comment:Desirable Triglyceri de: less than 150 mg/dLBorderline High Triglyceride 150-199 mg/dLHigh Triglyceride: 200-499 mg/dLVery High Triglyceride: greater than or equal to 5OO mg/dL Cholesterol 152 <200 mg/dL [facility] Comment:Desirable Cholestero l: less than 200 mg/dLBorderline High Cholesterol: 200-239 mg/dLHigh Cholesterol: greater than 239 mg/dL LDL Cholesterol Calculated 80 <100 mg/dL [facility] Comment:Desirable LDL: less than 100 mg/dLNear Optimal/Above Optimal LDL: 110- 129 mg/dLBorderline High LDL: 130-159 mg/dLHigh LDL: 160-189 mg/dLVery High LDL: greater than or equal to 190 mg/dL HDL Cholesterol 50 >40 mg/dL [facility] Comment:Desirable HDL: great er than 40 mg/dL Note: This HDL assay may give artificially low results in patients with liver disease. 05/17/2024 10:5 5 AM EDT 05/17/2024 11:39 AM EDT us Charbel Lyons MD LAB BLOOD ORDERABLES Final Resul t [facility] [address] [place] [phone] * Diabetes Eye Exam (03/11/2024) Eye Exam Normal Normal us Charbel Lyons MD HEALTH MAINTENANCE Final Result * Hm Colonoscopy (12/15/2019) Colonoscopy Normal Normal 12/15/[address] - 12/15/2019 1:24 PM EST Colonoscopy performed at [facility] ( see scanned report) recommended 10 year follow up us Fantasma Batista MD HEALTH MAINTENANCE Final Result from Last 3 Months or Most Recently Relevant to Health Maintenance Insurance [facility] C3 HSN PARTIAL Care Teams Control System Computer Scientist Relationship Specialty Start Date End Date Name, MD Charbel [address] [place] [phone] PCP - General Family Medicine 02/26/16 Мария Gudino, PharmD [address] [place] [phone] Pharmacist Internal Medicine 04/29/23
--- OUTSIDE RECORDS SUMMARY | 2025-01-06 13:52 | XMS_ITS | Encounter Summary ---
Author Organization [employer] Address [address] [place] [address] [address] [place] [address] Care Team Providers Care Medical Records Library Professor Name Role Phone Name, Charbel ACRRILLO Primary Care Provider [phone] Мария Gudino PharmD Unavailable [phone] Reason for Visit * Reason Onset Date Comments Appointment Request 09/22/2023 Encounter Details Date Type Department Care Team ([facility] st Contact Info) Description 09/22/2023 Telephone [facility] MEDICINE [address] [place], [place] [phone] Name, MD Charbel [address] [place] [address] Appointment Request Social History Tobacco Use Types Packs/Day Years Used Date Smoking Tobacco: Never Smokeless Tobacco: Never Alcohol Use Standard Drinks/Week Comments Never 0 (1 standard drink = 0.6 oz pur e alcohol) Depression Answer Date Recorded Patient Health Questionnaire-9 Score 0 10/23/2022 Housing Stability Answer Date Recorded What is [...] got money to buy more: Never True 09/01/2023 Within the past 12 months,th e food [...] encounter Miscellaneous Notes * Telephone Encounter - Orlando Falcon RN - 09/22/2023 4:38 PM EST T/C to pt. For below message, pt. Was advised there is no apt. Available later or earlier time. Pt.Wants to keep same apt. * Telephone Encounter - Jerry Churchill - 09/22/2023 3:44 PM EST Tc from pt requesting a call from nurse in regards to Appt on 09/24/2023 @ 2:15 pm (NOTES : Claim # [id number]- [place] M[place] -09/05/23- Went to [facility] ED - Xray negative but pt. wants MRI ) Pt states she has same day appt with Her Orthopedic surgeon and is requesting to see if provider has anything earlier or for later time. Please contact pt at [phone] documented in this encounter Plan of Treatment Upcoming Encounters Date Type Department Care Team (Late st Contact Info) Description 02/04/2025 2:00 PM EDT Telemedicine [facility] MEDICINE [address] [place] [phone] Roz Le, RN documented as of this encounter Goals Goal Patient Goal Type Associated Problems Recent Progress Patient-Stated? Author Record your blood pressure once per day Blood Pressure No Puia, Мария, PharmD Blood Pressure < 140/90 Blood Pressure 132/89( 024 10:37 AM EST) No Мария Gudino PharmD documented as of this encounter Visit Diagnoses Not on filedocumented in this encounter Additional Health Concerns Assessment Noted Time PHQ-9 Depression Total Score: 0 10/23/20 22 3:25 PM EST documented as of this encounter Care Teams Medical Records Library Professor Relationship Specialty Start Date End Date Name, MD Charbel [address] [place] [address] PCP - General Family Medicine 02/26/16 Мария Gudino PharmD [address] [place] [address] Pharmacist Internal Medicine 04/29/23 documented as of this encounter
--- OUTSIDE RECORDS SUMMARY | 2025-01-06 13:52 | XMS_ITS | Encounter Summary ---
Author Organization [employer] Address [address] [place] [address] [address] [place] [address] Care Team Providers Care Expansion Envelope Maker Hand Name Role Phone Name, Charbel CARRILLO Primary Care Provider [phone] Мария Gudino PharmD Unavailable [phone] Reason for Visit * Reason Onset Date Comments Error 12/08/2023 Encounter Details Date Type Department Care Team ([facility] st Contact Info) Description 12/08/2023 Telephone [facility] MEDICINE [address] [place], [place] [phone] Name, MD Charbel [address] [place] [address] Error Social History Tobacco Use Types Packs/Day Years [...] Info) Description 02/04/2025 2:00 PM EDT Telemedicine [facility] MEDICINE [address] [place] [address] Roz Le RN documented as of this encounter Goals Goal Patient Goal Type Associated Problems Recent Progress Patient-Stated? Author Record your blood pressure once per day Blood Pressure No Puia, Мария, PharmD Blood Pressure < 140/90 Blood Pressure 132/89( 024 10:37 AM EST) No Puia, Мария, PharmD documented as of this encounter Visit Diagnoses Not on filedocumented in this encounter Additional Health Concerns Assessment Noted Time PHQ-9 Depression Total Score: 0 10/23/20 22 3:25 PM EST documented as of this encounter Care Teams Expansion Envelope Maker Hand Relationship Specialty Start Date End Date Name, MD Charbel [address] [place] [address] PCP - General Family Medicine 02/26/16 Puia, Мария, PharmD [address] [place] [address] Pharmacist Internal Medicine 04/29/23 documented as of this encounter
--- OUTSIDE RECORDS SUMMARY | 2025-01-06 13:52 | XMS_ITS | Encounter Summary ---
Author Organization [employer] Address [address] [place] [address] [address] [place] [address] Care Team Providers Care Message Clerk Name Role Phone Name, Charbel CARRILLO Primary Care Provider [phone] Мария Gudino PharmD Unavailable [phone] Reason for Visit * Reason Comments Med Refill Encounter Details Date Type Department Care Team ([facility] st Contact Info) Description 09/16/2023 Refill [facility] MEDICINE [address] [place], [place] [phone] Name, MD Cahrbel [address] [place] [address] Social History Tobacco Use Types Packs/Day Years [...] Info) Description 02/04/2025 2:00 PM EDT Telemedicine [facility] MEDICINE [address] [place] [address] Roz Le RN documented as of this [...] documented as of this encounter Care Teams Message Clerk Relationship Specialty Start Date End Date Name, MD Charbel [address] [place] [phone] PCP - General Family Medicine 02/26/16 Puia, Мария, PharmD [address] [place] [phone] Pharmacist Internal Medicine 04/29/23 documented as of this encounter
--- OUTSIDE RECORDS SUMMARY | 2025-01-06 13:52 | XMS_ITS | Clinical Summary ---
Author Organization [employer] [facility] Address [address] [place] [address] Care Team Providers Care Plasma Processing Technician Name Role Phone Name, Charbel CARRILLO Primary Care Provider [phone] Surgical History Surgery Date Site/Laterality Comments SECTION PROCEDURE: HISTORICAL ; COMMENT: 6 CHOLECYSTECTOMY PROCEDURE: HISTORICAL CHOLECYSTECTOMY APPENDECTOMY PROCEDURE: HISTORICAL APPENDECTOMY Medical History Medical History Date Comments Carpal tunnel syndrome 09/09/2006 DX:Carpal tunnel syndrome Anxiety 07/02/2007 DX:Anxiety Asthma 09/09/2006 DX:Asthma Bipolar I disorder (CMS/HCC) 07/02/2007 DX: Bipolar I disorder (HCC) Chronic knee pain 07/24/2018 DX:Chronic kne e pain Chronic low back pain 09/09/2006 DX:Chronic low back pain; COMMENT: chronic back pain and knee pain R>L Colon polyps 07/24/2018 DX:Colon polyps Constipation due to opioid therapy 09/09/2006 DX:Constipation due to opioid therapy Depression 09/09/2006 DX:Depression Environmental allergies 05/16/2008 DX:Envir onmental allergies GERD (gastroesophageal reflux disease) 10/23/2007 DX:GERD (gastroesophageal reflux disease) History of gestational diabetes 07/24/2018 DX:History of gestational diabetes HTN (hypertension) 09/28/2014 DX:HTN (hyper tension) Hypertriglyceridemia 01/26/2008 DX:Hypertri glyceridemia Migraine 01/04/2009 DX:Migraine CJ (obstructive sleep apnea) 07/13/2018 DX :CJ (obstructive sleep apnea) Sjogren's syndrome (CMS/HCC) 07/24/2018 DX: Sjogren's syndrome (HCC) Family History Medical History Relation Name Comments Diabetes Father HTN Heart failure Maternal Grandmother DM Arthritis Mother HTN, Cancer abby rine Relation Name Status Comments Father Maternal Grandmother Mother Social History Tobacco Use Types Packs/Day Years Used Date Smoking Tobacco: Former Cigarettes Q uit: 11/17/2009 Smokeless Tobacco: Never Alcohol Use Standard Drinks/Week Comments No 0 (1 standard drink = 0.6 oz pur e alcohol) Comments Unknown Sex and Gender Information Value Date Recorded Sex Assigned at Not on file Legal Sex Female 2:34 PM EST Gender Identity Not on file Sexual Orientation Not on file Obstetrics History Plan of Treatment Health Maintenance Due Date Last Done Comments Breast Cancer Screening 1969 Hepatitis B Vaccines (1 of 3 - 19+ 3-dose series) 02/18/1988 Cervical Cancer Screening: Pap Smear 1990 Pneumococcal Vaccine: 50+ Years (2 of 2 - PCV) 05/30/2010 05/30/2009 Pneumococcal Vaccine: Pediatrics (0 to 5 Years) and At-Risk Patients (6 to 64 Years) (2 of 2 - PCV) 05/30/2010 05/30/2009 DTaP,Tdap,and Td Vaccines (2 - Td or Tdap) 09/30/2016 09/30/2006 Zoster Vaccines (1 of 2) 2019 Cholesterol Screening (Lipid Panel) 10/30/2022 Colorectal Cancer Screening: Colonoscopy 10/30/2022 Depression Screening 10/30/2022 HIV Screening 10/30/2022 Hepatitis C Screening 10/30/2022 Social Influencers of Health Screening 10/30/2022 Hypertension/CHF/CAD Annual BMP Blood Test 11/01/2022 COVID-19 Vaccine ( season) 2024 Influenza Vaccine (#1) 2024 4, 12/05/2009, 12/05/2009, Additional history exists HIB Vaccines Aged Out [...] on patient's age to complete this topic MMR Vaccines Aged Out No longer eligi ble based on patient's age to complete this topic Meningococcal ACWY Vaccine Aged Out N o longer eligible based on patient's age to complete this topic Meningococcal B Vacine Aged Out No lo nger eligible based on patient's age to complete this topic RSV Immunization Patients Under 20 months Aged Out No longer eligible based on patient's age to complete this topic Varicella Vaccines Aged Out No longer eligible based on patient's age to complete this topic Advance Directives Documents on File Type Date Recorded Patient Gis Physical Scientist Expl anation Health Care Decision (hx) 12/16/2019 AD RYAN DIRECTIVE Health Care Decision (hx) 12/16/2019 AD RYAN DIRECTIVE Health Care Decision (hx) 12/16/2019 AD RYAN DIRECTIVE Health Care Decision (hx) 12/16/2019 AD RYAN DIRECTIVE Health Care Decision (hx) 12/16/2019 AD RYAN DIRECTIVE Health Care Decision (hx) 12/16/2019 AD RYAN DIRECTIVE Health Care Decision (hx) 12/16/2019 AD RYAN DIRECTIVE Health Care Decision (hx) 12/16/2019 AD RYAN DIRECTIVE Health Care Decision (hx) 12/16/2019 AD RYAN DIRECTIVE Health Care Decision (hx) 12/16/2019 AD RYAN DIRECTIVE Health Care Decision (hx) 12/16/2019 AD RYAN DIRECTIVE Health Care Decision (hx) 12/16/2019 AD RYAN DIRECTIVE Health Care Decision (hx) 12/16/2019 AD RYAN DIRECTIVE Health Care Decision (hx) 12/16/2019 AD RYAN DIRECTIVE Health Care Decision (hx) 12/16/2019 AD RYAN DIRECTIVE Health Care Decision (hx) 12/16/2019 AD RYAN DIRECTIVE Health Care Decision (hx) 12/16/2019 AD RYAN DIRECTIVE Health Care Decision (hx) 12/16/2019 AD RYAN DIRECTIVE Health Care Decision (hx) 12/16/2019 AD RYAN DIRECTIVE Health Care Decision (hx) 12/16/2019 AD RYAN DIRECTIVE Health Care Decision (hx) 12/16/2019 AD RYAN DIRECTIVE Health Care Decision (hx) 12/14/2019 AD RYAN DIRECTIVE Health Care Decision (hx) 12/14/2019 AD RYAN DIRECTIVE Health Care Decision (hx) 12/14/2019 AD RYAN DIRECTIVE Health Care Decision (hx) 12/14/2019 AD RYAN DIRECTIVE Health Care Decision (hx) 12/14/2019 AD RYAN DIRECTIVE Health Care Decision (hx) 12/14/2019 AD RYAN DIRECTIVE Health Care Decision (hx) 12/14/2019 AD RYAN DIRECTIVE Health Care Decision (hx) 12/14/2019 AD RYAN DIRECTIVE Health Care Decision (hx) 12/14/2019 AD RYAN DIRECTIVE Health Care Decision (hx) 12/14/2019 AD RYAN DIRECTIVE Health Care Decision (hx) 12/14/2019 AD RYAN DIRECTIVE Health Care Decision (hx) 12/14/2019 AD RYAN DIRECTIVE Health Care Decision (hx) 12/14/2019 AD RYAN DIRECTIVE Health Care Decision (hx) 12/14/2019 AD RYAN DIRECTIVE Health Care Decision (hx) 12/14/2019 AD RYAN DIRECTIVE Health Care Decision (hx) 12/14/2019 AD RYAN DIRECTIVE Health Care Decision (hx) 12/14/2019 AD RYAN DIRECTIVE Health Care Decision (hx) 12/14/2019 AD RYAN DIRECTIVE Health Care Decision (hx) 12/14/2019 AD RYAN DIRECTIVE Health Care Decision (hx) 12/14/2019 AD RYAN DIRECTIVE Health Care Decision (hx) 12/14/2019 AD RYAN DIRECTIVE Care Teams Plasma Processing Technician Relationship Specialty Start Date End Date Name, MD Charbel [address] [place], [place] PCP - General Internal Medicine 09/04/06
--- OUTSIDE RECORDS SUMMARY | 2025-01-06 13:52 | XMS_ITS | Continuity of Care Document ---
Author Organization [facility] ter Address [address] [place] [address]- Care Team Providers Care Guard [employer] Name Role Phone Name Charbel CARRILLO Primary Care Physician En[place] [facility] [place] Date(s): 12/22/24 - 12/22/[address] [id number] Discharge Disposition: A-D/C Home Attending Physician: Josue Burton MD Admitting Physician: Josue Burton MD Referring Physician: Rashid Lopez MD Encounter Type: Disch Daystay Allergies, Adverse Reactions, Alerts Substance Criticality Severity Reaction Reaction Severity Status shellfish Anaphylaxis Active Lobster swelling in mouth and body Active Shrimp swelling in mouth and body Active Other Food Allergy shrimp an d lobster allergy- swelling in mouth and body passion fruit shells Active iodine shortness of breath Active acetaminophen 1 Acid reflux Ac tive penicillins Anaphylaxis Active Latex Anaphylaxis Active Advil 2 GI bleeding Active Contrast Dye Unable to assess criticality Persistent Moderate itchy hives Active metFORMIN Kidney failure Activ e NSAIDs 3 GI bleeding Active 1Pt states she gets hives 10/17/2020 2Pt states she gets hives 10/17/2020 3Patient tolerated aspirin Immunizations Given and Recorded Vaccine Date Status Refusal Reason SARS-CoV-2 (COVID-19) mRNA-1273 vaccine 03/14/22 R ecorded SARS-CoV-2 (COVID-19) mRNA-1273 vaccine 11/13/21 R ecorded SARS-CoV-2 (COVID-19) mRNA-1273 vaccine 02/22/21 R ecorded SARS-CoV-2 (COVID-19) mRNA-1273 vaccine 01/25/21 R ecorded influenza virus vaccine, inactivated 10/23/21 Rickey rded influenza virus vaccine, inactivated 08/19/20 Rickey rded influenza virus vaccine, inactivated 08/17/19 Rickey rded influenza virus vaccine, inactivated 08/18/18 Rickey rded influenza virus vaccine, inactivated 09/24/17 Rickey rded influenza virus vaccine, inactivated 08/09/16 Rickey rded influenza virus vaccine, inactivated 10/09/14 Rickey rded influenza virus vaccine, inactivated 12/05/09 Rickey rded influenza virus vaccine, inactivated 08/08/08 Rickey rded influenza virus vaccine, inactivated 09/30/06 Rickey rded tetanus/diphtheria/pertussis, acel(Tdap) 11/03/17 Recorded pneumococcal 23-valent vaccine 05/30/09 Recorded tetanus-diphtheria toxoids (Td) 09/30/06 Recorded Medications [place] By Mouth, 0 Refills, Maintenance, 12/04/23 10:56:00 AM EST, Partial fill upon patient request if theprescription is for a schedule II opioid drug. Start Date: 12/04/23 Status: Ordered Repeat number: 1 aspirin 81 mg oral delayed release tablet 81 mg, By Mouth, Daily, # 30 tablet, Refills 1, Tot. Refills 1, Maintenance, 05/31/22 11:54:00 AM EDT, Route to Pharmacy Electronically, [id number], Partial fill upon patient request if the prescription is for a schedule II opioid drug., 166, cm, 05/30/22 7:39:00 EDT, Height, 84.2, kg, 05/30/22 7:39:00 EDT, Dry Weight Start Date: 05/31/22 Status: Ordered Quantity: 30.0 Unit: tablet Repeat number: 2 Breo Ellipta Inhalation, Daily, 0 Refills, Maintenance, 12/04/23 10:55:00 AM EST, Partial fill upon patient request if the prescription is for a schedule II opioid drug. Start Date: 12/04/23 Status: Ordered Repeat number: 1 carvedilol 6.25 mg oral tablet 6.25 mg, 1, tablet, By Mouth, 2 times a day, filled 02/28/22 180 for 90 days, Maintenance, 05/30/22 11:56:00 AM EDT, ; Start Date: 05/30/22 Status: Ordered Repeat number: 1 clonazePAM 1 mg oral tablet 1 tablet = 1 mg, By Mouth, 3 times a day, PRN as needed, Last FILLED 01/22/22 112 for 28 days Start Date: 05/30/22 Status: Ordered Repeat number: 1 Colace sodium 100 mg oral capsule 100 mg, 1, capsule, By Mouth, 2 times a day, PRN, # 60 capsule, Refills 6, Tot. Refills 6, Maintenance, for constipation, 12/10/23 8:39:00 AM EST, Route to Pharmacy Electronically, [facility] #[id number], Partial fill upon patient request if the prescription is for a schedule II opioid drug., 165.1, cm, 12/09/23 9:27:00 EST, Height, 75.4, kg, 12/09/23 9:59:00 EST, Dry Weight Start Date: 12/10/23 Stop Date: 07/07/24 Status: Ordered Quantity: 60.0 Unit: capsule Repeat number: 7 doxepin 25 mg oral capsule 1 capsule = 25 mg, Daily at bedtime, TAKE 1 CAPSULE BY MOUTH EVERY DAY AT NIGHT Start Date: 06/09/24 Status: Ordered Repeat number: 1 Dulcolax 5 mg oral enteric coated tablet 3 tablet = 15 mg, By Mouth, Daily, # 270 tablet, 3 Refills, Maintenance, 06/30/23 12:54:00 PM EDT, EC Tablet, [facility] #[id number], Partial fill upon patient request if the prescription is for a schedule II opioid drug., 165, cm, 06/30/23 12:36:00 EDT, Height, 77.5, kg, 02/25/23 19:42:00 EDT,Dry Weight Start Date: 06/30/23 Stop Date: 06/24/24 Status: Ordered Quantity: 270.0 Unit: tablet Repeat number: 4 fluocinonide 0.05% topical solution 1 application, Topically, 2 times a day, PRN as needed Start Date: 05/30/22 Status: Ordered Repeat number: 1 Freestyle Lancets See Instructions, # 200 each, Refills 11, Tot. Refills 11, Maintenance, use as directed for diabetes care 4 times per day (or 3 times a day if covered by insurance), 09/08/24 12:04:00 PM EDT, Supply,165, cm, 09/08/24 11:59:00 EDT, Height, 79.9, kg, 06/23/24 9:18:00 EDT, Dry Weight Start Date: 09/08/24 Status: Ordered Quantity: 200.0 Unit: each Repeat number: 12 Freestyle Lite Monitor See Instructions, # 1 each, Refills 0, Tot. Refills 0, Maintenance, use as directed for diabetes care 4 times per day (or 3 times a day if covered by insurance), 09/08/24 12:03:00 PM EDT, Supply, 165, cm, 09/08/24 11:59:00 EDT, Height, 79.9, kg, 06/23/24 9:18:00 EDT, Dry Weight Start Date: 09/08/24 Status: Ordered Quantity: 1.0 Unit: each Repeat number: 1 Freestyle Lite Test Strips See Instructions, # 200 each, Refills 11, Tot. Refills 11, Maintenance, use as directed for diabetes care 4 times per day (or 3 times per day if covered by insurance), 09/08/24 12:04:00 PM EDT, Supply, 165, cm, 09/08/24 11:59:00 EDT, Height, 79.9, kg, 06/23/24 9:18:00 EDT, Dry Weight Start Date: 09/08/24 Status: Ordered Quantity: 200.0 Unit: each Repeat number: 12 gabapentin 400 mg oral capsule 400 mg, 1, capsule, By Mouth, 3 times a day, PRN, as needed Start Date: 05/30/22 Status: Ordered Repeat number: 1 Humalog 100 u/ml subcutaneous injection See Instructions, e11.65, use per sliding scale, 6-18 units subcutaneous injection three times a day before meals. , max daily dose is 54 units, # 30 mL, 5 Refills, Maintenance, 02/10/23 1:47:00 PM EDT, Injection, [facility] #[id number], Partial fill upon patient request if the prescription is for a schedule II opioid drug., 164, cm, 12/15/22 13:42:00 EST, Height, 79, kg, 12/15/22 13:42:00 EST, Dry Weight Start Date: 02/10/23 Status: Ordered Quantity: 30.0 Unit: mL Repeat number: 6 hydrochlorothiazide-valsartan 25 mg-160 mg oral tablet 1 tablet, By Mouth, Daily Start Date: 05/30/22 Status: Ordered Repeat number: 1 hydroxychloroquine 200 mg oral tablet 200 mg, 1, tablet, By Mouth, Daily, Last Filled 12/25/21 30 for 30 Start Date: 05/30/22 Status: Ordered Repeat number: 1 hydrOXYzine hydrochloride 50 mg oral tablet 1 tablet = 50 mg, By Mouth, 3 times a day, PRN as needed, Last FILLED 12/25/21 Start Date: 05/30/22 Status: Ordered Repeat number: 1 Jardiance 25 mg oral tablet 1 tablet, By Mouth, Daily, # 30 tablet, 8 Refills, Maintenance, 08/25/23 7:46:00 AM EDT, [facility], 165, cm, 08/20/23 22:41:00 EDT, Height, 76, kg, 08/20/23 22:41:00 EDT, Dry Weight Start Date: 08/25/23 Status: Ordered Quantity: 30.0 Unit: tablet Repeat number: 1 Lantus Solostar Pen 100 units/mL subcutaneous solution = 34 units, Subcutaneous Injection, Daily in AM, # 30 mL, 5 Refills, Maintenance, 02/10/23 1:47:00 PM EDT, Injection, [facility] #[id number], Partial fill upon patient request if the prescriptionis for a schedule II opioid drug., 164, cm, 12/15/22 13:42:00 EST, Height, 79, kg, 12/15/22 13:42:00 EST, Dry Weight Start Date: 02/10/23 Status: Ordered Quantity: 30.0 Unit: mL Repeat number: 6 melatonin 5 mg oral tablet 1 tablet = 5 mg, By Mouth, Daily at bedtime, PRN for insomnia, Maintenance, 05/30/22 12:05:00 PM EDT, Tablet, ; Start Date: 05/30/22 Status: Ordered Repeat number: 1 montelukast 10 mg oral tablet 10 mg, 1, tablet, By Mouth, Daily in AM, Last FILLED 04/13/22 30 for 30 Start Date: 05/30/22 Status: Ordered Repeat number: 1 nystatin-triamcinolone topical 332482 u/gm-0.1% ointment 1 application, Topically, 2 times a day, PRN as needed Start Date: 05/30/22 Status: Ordered Repeat number: 1 ocular lubricant - solution 1 drops, Eyes, Both, 2 times a day, PRN for dry eyes, Maintenance, 05/30/22 11:48:00 AM EDT, Solution, ; Start Date: 05/30/22 Status: Ordered Repeat number: 1 Omeprazole = 20 mg, By Mouth, 2 times a day, 0 Refills, Maintenance, 12/04/23 10:21:00 AM EST, Partial fill upon patient request if the prescription is for a schedule II opioid drug. Start Date: 12/04/23 Status: Ordered Repeat number: 1 OXcarbazepine 150 mg oral tablet 150 mg, 1, tablet, By Mouth, Daily in AM, TAKE 1 TABLET BY MOUTH EVERY DAY IN THE MORNING Start Date: 06/09/24 Status: Ordered Repeat number: 1 OXcarbazepine 300 mg oral tablet 300 mg, 1, tablet, TAKE 1 TABLET BY MOUTH EVERY DAY AT NIGHT Start Date: 06/09/24 Status: Ordered Repeat number: 1 oxyCODONE 10 mg oral tablet 1 tablet = 10 mg, By Mouth, PRN pain, EVERY 5 TO 6 HOURS, 0 Refills Start Date: 05/30/22 Status: Ordered Repeat number: 1 pantoprazole 40 mg oral delayed release tablet 1 tablet = 40 mg, By Mouth, Daily in AM Start Date: 05/30/22 Status: Ordered Repeat number: 1 sucralfate 1 gm oral tablet 1 Gm, 1, tablet, By Mouth, 2 times a day, # 180 tablet, Refills 0, Maintenance, 06/09/24 9:50:00 AM EDT, Partial fill upon patient request if the prescription is for a schedule II opioid drug. Start Date: 06/09/24 Status: Ordered Quantity: 180.0 Unit: tablet Repeat number: 1 Trulicity Pen 4.5 mg/0.5 mL subcutaneous solution = 0.5 mL, Subcutaneous Injection, Every week, rotate injection sites, # 2 mL, 5 Refills, Maintenance, 06/22/24 9:34:00 AM EDT, Solution, [facility], Partial fill upon patient request if the prescription is for a schedule II opioid drug., 165, cm, 06/17/24 16:59:00 EDT, Height, 78.2, kg, 06/17/24 16:59:00 EDT, Dry Weight Start Date: 06/22/24 Status: Ordered Quantity: 2.0 Unit: mL Repeat number: 6 Xopenex HFA 45 mcg/inh inhalation aerosol 2 puffs, Inhalation, Every 6 hours, PRN Wheezing/Shortness of Breath Start Date: 05/30/22 Status: Ordered Repeat number: 1 zolpidem 10 mg oral tablet 1 tablet = 10 mg, By Mouth, Daily at bedtime, PRN as needed, last FILLED 01/15/22 30 for 30 Start Date: 05/30/22 Status: Ordered Repeat number: 1 Problem List Condition Confirmation Course Effective Dates Status H ealth Status Informant Anxiety Confirmed Active Arthritis Confirmed Active Bursitis Confirmed Active Depression Confirmed Active Dyspareunia Confirmed Active GERD with apnea Confirmed Active H/O hyperlipidemia Confirmed Active Hemorrhoids Confirmed Active Hypertension Confirmed Active Osteoarthritis Confirmed Active S/P endometrial ablation Confirmed Active Sjogren's disease Confirmed Active Lupus Confirmed Active Social History Social History Type Response Smoking Status Former smoker, quit more than 30 days ago; Other: On off 6-7 years, 1 pack every 3 days or so. Quit ~2011.; entered on: 05/30/22 Sex Sex Representation Female (finding) Patient Care team information Care Team Personnel Name: Tracie Jaramillo RN Position: [facility] RN Member Role: Primary Care Nurse Name: Dionne Quiles NP Position: [facility] Associate Professional Member Role: Primary Care Nurse Name: Santos NUNN, Tamar Almazan Position: [facility] Onco RN Member Role: Primary Care Nurse Name: Brennon Peralta RN Position: [facility] Hospital Stogy Roller Member Role: Primary Care Nurse Name: Charbel Lyons MD Position: [facility] Outreach Member Role: PCP Address: [address] [place] [address]- Telecom: Name: Claudia Urbina RN Position: [facility] AMB Nurse Member Role: Primary Care Nurse Name: Osiel Glynn MD Position: [facility] Renal MD Member Role: [employer]etime Consulting Physician Address: [address] [place], [place] [id number] [facility] [place] [address]- Telecom: Name: Amy Foster RN Position: [facility] RN Member Role: Primary Care Nurse Care Team Related Persons Name: KAYLI BALJEET Name: JOELLEN WHYTE Insurance Providers Guarantor name: SIMON MILAN Health Plan Information #: 1 Payer: [employer] Member Number: [id number] Policy Number: NA Group Number: NA Health Plan Information #: 2 Payer: [employer] Member Number: [id number] Policy Number: NA Group Number: NA
--- OUTSIDE RECORDS SUMMARY | 2025-01-06 13:52 | XMS_ITS | Encounter Summary ---
Author Organization [employer] Address [address] [place] [address] [address] [place] [address] Care Team Providers Care Hydropulper Name Role Phone Name, Charbel CARRILLO Primary Care Provider [phone] Мария Gudino PharmD Unavailable Reason for Visit * Reason Onset Date Comments Hospital Follow-up 09/29/2024 Encounter Details Date Type Department Care Team ([facility] st Contact Info) Description 09/29/2024 Telephone [facility] [address] [place], [place] [phone] Name, MD Charbel [address] [place] [address] Hospital Follow-up Social History Tobacco Use Types Packs/Day Years [...] encounter Miscellaneous Notes * Telephone Encounter - Radha Noriega - 09/29/2024 3:32 PM EST Tc from pt requesting a HDF appt. Hospital: [facility] Date of admission: 08/15/24 Discharge date: Diagnosed: stroke and eye symptoms , eye injection *Send message to [place] Clinical Care Coordinators documented in this encounter Plan of Treatment Upcoming Encounters Date Type Department Care Team (Late st Contact Info) Description 02/04/2025 2:00 PM EDT Telemedicine [facility] [address] [place] [id number] Roz Le, RN documented as of this encounter Goals Goal Patient Goal Type Associated Problems Recent Progress Patient-Stated? Author Record your blood pressure once per day Blood Pressure No Мария Gudino, PharmD Blood Pressure < 140/90 Blood Pressure 132/89(2023 10:37 AM EST) No Мария Gudino PharmD Patient will adhere to medication regimen General No Мария Gudino PharmD LDL Calc < 70 Result Component No Мария Gudino PharmD Note: Per ADA for primary prevention of ASCVD documented as of this encounter Visit Diagnoses Not on filedocumented in this encounter Additional Health Concerns Assessment Noted Time PHQ-9 Depression Total Score: 0 03/22/20 24 1:45 PM EDT documented as of this encounter Care Teams Hydropulper Relationship Specialty Start Date End Date Name, MD Charbel [address] [place] [address] PCP - General Family Medicine 02/26/16 Мария Gudino PharmD [address] [place] [address] Pharmacist Internal Medicine 04/29/23 documented as of this encounter
--- OUTSIDE RECORDS SUMMARY | 2025-01-06 13:52 | XMS_ITS | Encounter Summary ---
Author Organization [employer] Address [address] [facility] 7t [place] [address] Care Team Providers Care Septic Tank Servicer Name Role Phone Name, Charbel CARRILLO Primary Care Provider [phone] Мария Gudino PharmD Unavailable [phone] Encounter Details Date Type Department Care Team (Late st Contact Info) Description 12/21/2024 Telephone [facility] [address] [place] [address] Jyoti Medina [place] Social History Tobacco Use Types Packs/Day Years [...] encounter Miscellaneous Notes * Telephone Encounter - Jyoti Medina MA - 12/21/2024 10:29 AM EST Attempted to call pt to make aware that apt for 12/31 has to be cancel due to PCP out. There was no answer and I was not able to leave a voicemail due to mailbox full. If pt calls back please schedulenext available. documented in this encounter Plan of Treatment Upcoming Encounters Date Type Department Care Team (Late st Contact Info) Description 02/04/2025 2:00 PM EDT Telemedicine [facility] [address] [place] [id number] Roz Le, ARLINE documented as of this encounter Goals Goal [...] documented as of this encounter Care Teams Septic Tank Servicer Relationship Specialty Start Date End Date Name, MD Charbel [address] [place] [address] PCP - General Family Medicine 02/26/16 Мария Gudino, Aleisha [address] [place] [address] Pharmacist Internal Medicine 04/29/23 documented as of this encounter
--- OUTSIDE RECORDS SUMMARY | 2025-01-06 13:52 | XMS_ITS | Encounter Summary ---
Author Organization [employer] Address [address] [facility] 7t [place] [address] Care Team Providers Care Paying Teller Name Role Phone Name, Charbel CARRILLO Primary Care Provider [phone] Мария Gudino PharmD Unavailable [phone] Reason for Visit * Reason Comments Care Coordination Outreach Encounter Details Date Type Department Care Team (Latest Contact Info) Description 12/17/2024 Patient Outreach [facility] [address] [place], [place] [phone] Name, MD Charbel [address] [place] [address] Care Coordination (Outreach) Social History Tobacco Use [...] the past 12 months, has t he sarvaMAIL, gas, oil or water [employer] threatened to shut off services in your [...] encounter Progress Notes * Ramona Darling - 12/17/2024 10:46 AM EST CHW Ramona Darling placed outbound call for a follow up call to patient regarding SDOH needs. No answer at this time. CHW was unable to leave a voicemail. CHW will follow up with patient within 10 business days. documented in this encounter Plan of Treatment Upcoming Encounters Date Type Department Care Team (Late st Contact Info) Description 02/04/2025 2:00 PM EDT Telemedicine [facility] [address] [place] [phone] Roz Le RN documented as of this [...] documented as of this encounter Care Teams Paying Teller Relationship Specialty Start Date End Date Name, MD Charbel [address] [place] [address] PCP - General Family Medicine 02/26/16 Мария Gudino PharmD [address] [place] [address] Pharmacist Internal Medicine 04/29/23 documented as of this encounter
--- OUTSIDE RECORDS SUMMARY | 2025-01-06 13:52 | XMS_ITS | Clinical Summary ---
Author Organization [facility] Address [address] [place] [address] Care Team Providers Care Rehab Spec Name Role Phone Noemí Umana PA-C Primary Care Provider [phone] Source Comments PLEASE NOTE, if this patient is a minor, it may be UNLAWFUL to discuss sensitive information that is contained in these records (such as FAMILY PLANNING, MENTAL HEALTH or SUBSTANCE ABUSE) with the minor patient's parent or other person without the patient's specific authorization.[facility] Allergies Active Allergy Reactions Criticality Noted Date Comments Iodinated Contrast Media 01/18/2016 Latex Hives,Itching 02/24/2015 Mangoes Swelling 02/24/2015 Penicillins Hives,Itching,Swelling 02/24/2015 Shellfish Derived Swelling 02/24/2015 Medications gemfibrozil (LOPID) 600 mg tablet From prior pcp 5 5 Active buPROPion (WELLBUTRIN XL) 150 mg 24 hr tablet 3 5 Active clonazePAM (KLONOPIN) 1 mg tablet 3 5 Active FLUoxetine (PROZAC) 20 mg capsule 3 5 Active beclomethasone (QVAR) 80 mcg/actuation inhalerIndication s:Mild persistent asthma without complication Inhale 1 Puff into the lungs 2 (two) times daily. 1 Inhaler 3 5 Active hydrochlorothiazi de (MICROZIDE) 12.5 mg capsule TAKE 1 CAPSULE BY MOUTH EVERY DAY 30 Cap 0 6 Active albuterol sulfate hfa 90 mcg/actuation inhaler Inhale 2 Puffs into the lungs every 4 (four) hours as needed for shortness of breath or wheezing. 18 g 1 6 Active amLODIPine (NORVASC) 5 mg tabletIndications :Essential hypertension Take 1 Tab by mouth once daily. 30 Tab 1 6 Active omeprazole (PRILOSEC) [address] capsuleIndication s:Knee pain, chronic, right Take 2 Caps by mouth every morning before breakfast. Do not crush or chew. 60 Cap 2 6 Active lisinopril (PRINIVIL,ZESTRIL ) 40 mg tablet Take 1 Tab by mouth once daily. 30 Tab 1 6 Active hydrochlorothiazi de (HYDRODIURIL) 12.5 mg tabletIndications :Essential hypertension Take 1 Tab by mouth once daily. 30 Tab 1 6 Active gabapentin (NEURONTIN) 800 mg tabletIndications :Fibromyalgia Take 1 Tab by mouth 3 (three) times daily. 90 Tab 5 6 Active EPINEPHrine (EPIPEN) 0.3 mg/0.3 mL injection Inject 0.3 mL into the muscle as needed for anaphylaxis. 2 Each 0 6 Active indomethacin (INDOCIN) 50 mg capsule 6 Active methocarbamol (ROBAXIN) 750 mg tablet 6 Active morphine (MS CONTIN) 15 mg 12 hr tablet 6 Active naproxen (NAPROSYN) 500 mg tablet 6 Active diphenhydrAMINE (BENADRYL) 50 mg capsule 0 6 Active Active Problems Problem Noted Date Diagnosed Date H/O arthroscopic right knee surgery. [facility] [address] [place]. 04/17/15. 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 Hx of screening mammography 09/01/15 09/08/2015 Overview (09/08/2015): BILATERAL MAMMOGRAM SCREENING DONE AT [facility] BREAST & WELLNESS RESULTS WAS SENT TO MEDICAL RECORDS TO BE SCAN HTN (hypertension) 02/24/2015 Asthma 02/24/2015 Bipolar disorder ([facility]) Overview (02/24/2015): [facility] Fibromyalgia Right shoulder pain Overview (01/18/2016): Used to be seen for PM at [facility], got injections, not better, ref to Ortho [...] on 09 January 2016 14:38 Encounter info: [id number], [facility], 01/08/2016 - 01/15/2016 * Final Report * Reason For Exam rt shoulder pain RCT;rt shoulder pain RCT RESULT: MRI Joint Ext Upper W/O Contrast Right [facility] VISIT NUMBER :[id number] Patient Name : Sade Izaguirre Date of : 1970 Date of Exam : 01/08/2016 Referring Physician : GINA MAXWELL [address], Attn: [place] [address] Exam : MR - SHOULDER (C-) CPT 04471 - RIGHT Room Description : [facility] 2 1.5 Technique : Ax PD Fsat, [...] Contrast Right This document has an image Herniated disc, cervical Overview (08/31/2015): MRI done at [place] 11.15.14 Hyperlipidemia Social History Tobacco Use Types Packs/Day Years Used Date Smoking Tobacco: Never Alcohol Use Standard Drinks/Week Comments Yes 0 (1 standard drink = 0.6 oz pur e alcohol) Socially Social Connections Answer Date Recorded Social Connections and Isolation 0 07/11/2019 Financial Resource Strain Answer Date R ecorded Financial Resource Strain 0 2018 Stress Answer Date Recorded Stress 0 07/11/2019 Physical Activity Answer Date Recorded Physical Activity 0 07/11/2019 Food Insecurity Answer Date Recorded Food 0 07/11/2019 Transportation Needs Answer Date Record ed Transportation 0 07/11/2019 Housing Stability Answer Date Recorded Housing 0 07/11/2019 Safety and Environment Answer Date Rickey rded Safety 0 07/11/2019 Utilities Answer Date Recorded Utilities 0 07/11/2019 Employment Answer Date Recorded Employment 0 07/11/2019 Comments Unknown Sex and Gender Information Value Date Recorded Sex Assigned at Not on file Legal Sex Female 1:11 PM PDT Gender Identity Not on file Sexual Orientation Not on file Last Filed Vital Signs Vital Sign Reading Time Taken Comments Blood Pressure 110/70 01/18/2016 11:43 AM EST Pulse 68 01/18/2016 11:43 AM EST Temperature 37.1 ??C (98.7 ??F) 01/18/2016 11:[address] Respiratory Rate 14 01/18/2016 11:43 AM EST Oxygen Saturation - - Inhaled Oxygen Concentration - - Weight 78.7 kg (173 lb 9.6 oz) 01/18/2016 11:43 AM EST Height 170.2 cm (5' 7 ) 01/18/2016 11:43 AM EST Body Mass Index 27.19 01/18/2016 11:43 AM EST Plan of Treatment Not on file Insurance [employer] Care Teams Rehab Spec Relationship Specialty Start Date End Date Noemí Umana PA-C [address] [place] [address] PCP - General 01/12/19
--- OUTSIDE RECORDS SUMMARY | 2025-01-06 13:52 | XMS_ITS | Encounter Summary ---
Author Organization [employer] Address [address] [place] [address] 7 [place] [address] Care Team Providers Care Systems Test Engineer Name Role Phone Name, Charbel CARRILLO Primary Care Provider [phone] Мария Gudino PharmD Unavailable [phone] Reason for Visit * Reason Onset Date Comments ER Follow-up 08/20/2023 Encounter Details Date Type Department Care Team ([facility] st Contact Info) Description 08/20/2023 Telephone [facility] [address] [place], [place] [phone] Name, MD Charbel [address] [place] [address] ER Follow-up Social History Tobacco Use Types Packs/Day [...] Telephone Encounter - Orlando Falcon RN - 08/26/2023 2:55 PM EDT T/C x 1 pm to pt. For below message, No answer. Not able to LVM. * Telephone Encounter - Frannie Mcnair - 08/20/2023 11:35 AM EDT Patient calling to report ED visit on 08/19/23 at [facility]. Seen for fall. Patient advised will forward to team nurse for follow up. documented in this encounter Plan of Treatment Upcoming Encounters Date Type Department Care Team (Late st Contact Info) Description 02/04/2025 2:00 PM EDT Telemedicine [facility] [address] [place] [address] Roz Le, ARLINE documented as of this [...] documented as of this encounter Care Teams Systems Test Engineer Relationship Specialty Start Date End Date Name, MD Charbel [address] [place] [address] PCP - General Family Medicine 02/26/16 Puia, Мария, PharmD [address] [place] [address] Pharmacist Internal Medicine 04/29/23 documented as of this encounter
--- OUTSIDE RECORDS SUMMARY | 2025-01-06 13:52 | XMS_ITS | Encounter Summary ---
Author Organization [employer] Address [address] [place] [address] 7t [place] [address] Care Team Providers Care Bill Peddler Name Role Phone Name, Charbel CARRILLO Primary Care Provider [phone] Мария Gudino PharmD Unavailable [phone] Reason for Visit * Reason Onset Date Comments Med Refill 12/21/2024 Encounter Details Date Type Department Care Team (Late st Contact Info) Description 12/21/2024 Refill [facility] [address] [place], [place] [phone] Name, MD Charbel [address] [place] [address] Chronic pain syndrome Social History Tobacco Use Types Packs/Day Years [...] encounter Miscellaneous Notes * Telephone Encounter - Iram Willoughby - 12/21/2024 1:56 PM EST TC from pt requesting medication refill. (Pt states had surgery on 12/21 and has no medications. The surgeon prescribed Oxycodone 5MG but they did not give it to him since he had a pending prescription for 10MG.) oxyCODONE (Roxicodone) 10 MG immediate release tablet () To be sent to: [id number] [place], [place] - [address] Pt[address] P. [phone] documented in this encounter Plan of Treatment Upcoming Encounters Date Type Department Care Team (Late st Contact Info) Description 02/04/2025 2:00 PM EDT Telemedicine [facility] [address] [place] [address] Roz Le, ARLINE documented as of this [...] as of this encounter Visit Diagnoses Diagnosis Chronic pain syndrome documented in this encounter Additional Health Concerns Assessment Noted Time PHQ-9 Depression Total Score: 0 03/22/20 24 1:45 PM EDT documented as of this encounter Care Teams Bill Peddler Relationship Specialty Start Date End Date Name, MD Charbel [address] [place] [address] PCP - General Family Medicine 02/26/16 Мария Gudino, PharmD [address] [place] [address] Pharmacist Internal Medicine 04/29/23 documented as of this encounter
--- OUTSIDE RECORDS SUMMARY | 2025-01-06 13:52 | XMS_ITS | Encounter Summary ---
Author Organization [employer] Address [address] [facility] 7t [place] [address] Care Team Providers Care Technical Training Instructor Name Role Phone Name, Charbel CARRILLO Primary Care Provider [phone] Мария Gudino PharmD Unavailable [phone] Reason for Visit * Reason Comments Med Refill Encounter Details Date Type Department Care Team ([facility] st Contact Info) Description 12/23/2024 Refill [facility] [address] [place], [place] [phone] Name, MD Charbel [address] [place] [address] Vomiting and diarrhea; Hyperglycemia; Acute pain of right shoulder Social History [...] t he electric, gas, oil or water [employer] threatened to shut off services in your [...] Info) Description 02/04/2025 2:00 PM EDT Telemedicine [facility] [address] [place] [address] Roz Le RN documented as of this encounter Goals Goal Patient Goal Type Associated Problems Recent Progress Patient-Stated? Author Record your blood pressure once per day Blood Pressure No PuiaRichardМария, PharmD Blood Pressure < 140/90 Blood Pressure 132/89(2023 10:37 AM EST) No Puia, Мария, PharmD Patient will adhere to medication regimen General No Puia, Мария, PharmD LDL Calc < 70 Result Component No Puia Мария, PharmD Note: Per ADA for primary prevention of ASCVD documented as of this encounter Visit Diagnoses Diagnosis Vomiting and diarrhea Hyperglycemia Other abnormal glucose Acute pain of right shoulder documented in this encounter Additional Health Concerns Assessment Noted Time PHQ-9 Depression Total Score: 0 03/22/20 24 1:45 PM EDT documented as of this encounter Care Teams Technical Training Instructor Relationship Specialty Start Date End Date Name, MD Charbel [address] [place] [address] PCP - General Family Medicine 02/26/16 Мария Gudino, Aleisha [address] [place] [address] Pharmacist Internal Medicine 04/29/23 documented as of this encounter
--- OUTSIDE RECORDS SUMMARY | 2025-01-06 13:52 | XMS_ITS | Encounter Summary ---
Author Organization [employer] Address [address] [place] [address] 7t [place] [address] Care Team Providers Care Metal Framer Name Role Phone Name, Charbel CARRILLO Primary Care Provider [phone] Мария Gudino PharmD Unavailable [phone] Reason for Visit * Reason Onset Date Comments Prior Authorization 01/06/2024 Encounter Details Date Type Department Care Team ([facility] st Contact Info) Description 01/06/2024 Telephone [facility] [address] [place], [place] [phone] Name, MD Charbel [address] [place] [address] Prior Authorization Social History Tobacco Use Types Packs/Day Years [...] encounter Miscellaneous Notes * Telephone Encounter - Ranjan Deluca - 01/13/2024 10:48 AM EST Tc from [facility] calling in regards to the message below states needs PA so they can schedule a appt with the patient * Telephone Encounter - Lucio Edgar - 01/06/2024 10:44 AM EST Tc bernabe Lagos working with [facility] stating pt needs prior authorization for Ct Scan If any questions you can contact [facility] [phone] documented in this encounter Plan of Treatment Upcoming Encounters Date Type Department Care Team (Late st Contact Info) Description 02/04/2025 2:00 PM EDT Telemedicine [facility] [address] [place] [address] Roz Le RN documented as of this [...] documented as of this encounter Care Teams Metal Framer Relationship Specialty Start Date End Date Name, MD Charbel [address] [place] [address] PCP - General Family Medicine 02/26/16 Мария Gudino, Aleisha [address] [place] [address] Pharmacist Internal Medicine 04/29/23 documented as of this encounter
--- OUTSIDE RECORDS SUMMARY | 2025-01-06 13:52 | XMS_ITS | Encounter Summary ---
Author Organization [employer] Address [address] [facility] 7t [place] [address] Care Team Providers Care Dog Boarder Name Role Phone Name, Charbel CARRILLO Primary Care Provider [phone] Мария Gudino PharmD Unavailable [phone] Encounter Details Date Type Department Care Team (Late st Contact Info) Description 09/24/2023 Abstract [facility] [address] [place], [place] [phone] Name, MD Charbel 230 [place] [address] Social History Tobacco Use Types Packs/Day Years [...] Info) Description 02/04/2025 2:00 PM EDT Telemedicine [facility] [address] [place] [address] Roz Le RN documented as of this [...] documented as of this encounter Care Teams Dog Boarder Relationship Specialty Start Date End Date Name, MD Charbel [address] [place] [address] PCP - General Family Medicine 02/26/16 PuiaRichardМария, PharmD [address] [place] [address] Pharmacist Internal Medicine 04/29/23 documented as of this encounter
--- OUTSIDE RECORDS SUMMARY | 2025-01-06 13:52 | XMS_ITS | Encounter Summary ---
Author Organization [employer] Address [address] [place] [address] 7t [place] [address] Care Team Providers Care Manager Utilization Review Name Role Phone Name, Charbel CARRILLO Primary Care Provider [phone] Мария Gudino PharmD Unavailable [phone] Reason for Visit * Reason Comments Med Refill Encounter Details Date Type Department Care Team ([facility] st Contact Info) Description 09/16/2023 Refill [facility] [address] [place], [place] [phone] Name, MD Charbel [address] [place] [address] Social History Tobacco Use Types Packs/Day Years [...] Info) Description 02/04/2025 2:00 PM EDT Telemedicine [facility] [address] [place] [address] Roz Le RN documented as of this [...] documented as of this encounter Care Teams Manager Utilization Review Relationship Specialty Start Date End Date Name, MD Charbel [address] [place] [address] PCP - General Family Medicine 02/26/16 Puia, Мария, PharmD [address] [place] [address] Pharmacist Internal Medicine 04/29/23 documented as of this encounter
--- OUTSIDE RECORDS SUMMARY | 2025-01-06 13:52 | XMS_ITS | Encounter Summary ---
Author Organization [employer] Address [address] [place] [address] 7t [place] [address] Care Team Providers Care Fisher Pound Net Or Trap Name Role Phone Name, Charbel CARRILLO Primary Care Provider [phone] Мария Gudino PharmD Unavailable [phone] Reason for Visit * Reason Comments Med Refill Encounter Details Date Type Department Care Team (Late Contact Info) Description 02/10/2023 Refill [facility] [address] [place], [place] [phone] Name, MD Charbel [address] [place] [address] Social History Tobacco Use Types Packs/Day Years [...] suspected to have Coronavirus/COVID-19? No / Unsure 02/05/2023 8:31 AM EDT documented as of this encounter Plan of Treatment Upcoming Encounters Date Type Department Care Team ([facility] Contact Info) Description 02/04/2025 2:00 PM EDT Telemedicine [facility] [address] [place] [address] Roz Le, RN documented as of this encounter Visit Diagnoses Not on filedocumented in this encounter Additional Health Concerns Assessment Noted Time PHQ-9 Depression Total Score: 0 10/23/20 22 3:25 PM EST documented as of this encounter Care Teams Fisher Pound Net Or Trap Relationship Specialty Start Date End Date Name, MD Charbel [address] [place] [address] PCP - General Family Medicine 02/26/16 Мария Gudino PharmD [address] [place] [address] Pharmacist Internal Medicine 04/29/23 documented as of this encounter
--- OUTSIDE RECORDS SUMMARY | 2025-01-06 13:52 | XMS_ITS | Encounter Summary ---
Author Organization [employer] Address [address] [facility] 7t [place] [address] Care Team Providers Care National Recruiter Name Role Phone Name, Charbel CARRILLO Primary Care Provider Мария Gudino PharmD Unavailable [phone] Encounter Details Date Type Department Care Team (Late st Contact Info) Description 09/24/2023 Abstract [facility] 230 [place], [place] [phone] Name, MD Charbel 230 [place] [address] Social History Tobacco Use Types Packs/Day Years [...] Info) Description 02/04/2025 2:00 PM EDT Telemedicine [facility] [address] [place] [address] Roz Le RN documented as of this [...] documented as of this encounter Care Teams National Recruiter Relationship Specialty Start Date End Date Name, MD Charbel [address] [place] [address] PCP - General Family Medicine 02/26/16 PuiaRichardМария, PharmD [address] [place] [address] Pharmacist Internal Medicine 04/29/23 documented as of this encounter
--- OUTSIDE RECORDS SUMMARY | 2025-01-06 13:52 | XMS_ITS | Encounter Summary ---
Author Organization [employer] Address [address] [place] [address] 7t [place] [address] Care Team Providers Care Appliance Painter And Refinisher Name Role Phone Name, Charbel CARRILLO Primary Care Provider [phone] Мария Gudino PharmD Unavailable Reason for Visit * Reason Comments Med Refill Encounter Details Date Type Department Care Team ([facility] st Contact Info) Description 02/20/2024 Refill [facility] 230 [place], [place] [phone] Name, MD Charbel [address] [place] [address] Social History Tobacco Use Types Packs/Day Years [...] Info) Description 02/04/2025 2:00 PM EDT Telemedicine [facility] [address] [place] [address] Roz Le RN documented as of this [...] documented as of this encounter Care Teams Appliance Painter And Refinisher Relationship Specialty Start Date End Date Name, MD Charbel [address] [place] [address] PCP - General Family Medicine 02/26/16 Puia, Мария, PharmD [address] [place] [address] Pharmacist Internal Medicine 04/29/23 documented as of this encounter
--- OUTSIDE RECORDS SUMMARY | 2025-01-06 13:52 | XMS_ITS | Encounter Summary ---
Author Organization [employer] Address [address] [place] [address] 7t [place] [address] Care Team Providers Care Special Forces Communications Sergeant Name Role Phone Name, Charbel CARRILLO Primary Care Provider [phone] Мария Gudino PharmD Unavailable [phone] Reason for Visit * Reason Comments Med Refill Encounter Details Date Type Department Care Team ([facility] st Contact Info) Description 07/24/2024 Refill [facility] 230 [place], [place] [phone] Мария Gudino, PharmD 230 [place] [address] Essential hypertension; Type 2 diabetes mellitus with hyperglycemia, with long-term current use of insulin ([facility]) Social History Tobacco Use Types Packs/Day Years [...] Access Answer Date Recorded Internet Access Q1 No 07/16/2024 Internet Access Q2 I do not want or need it 06/19 Comments Unknown Sex and Gender Information Value [...] Info) Description 02/04/2025 2:00 PM EDT Telemedicine [facility] [address] [place] [address] Roz Le RN documented as of this encounter Goals Goal Patient Goal Type Associated Problems Recent Progress Patient-Stated? Author Record your blood pressure once per day Blood Pressure No Мария Gudino, PharmD Blood Pressure < 140/90 Blood Pressure 132/89(2023 10:37 AM EST) No Richard Gudinoyssa, PharmD Patient will adhere to medication regimen General No Richard Gudinoyssa, PharmD LDL Calc < 70 Result Component No Richard Gudinoyssa PharmD Note: Per ADA for primary prevention of ASCVD documented as of this encounter Visit Diagnoses Diagnosis Essential hypertension Unspecified essential hypertension Type 2 diabetes mellitus with hyperglycemia, with long-term current use of insulin ([facility]) documented in this encounter Additional Health Concerns Assessment Noted Time PHQ-9 Depression Total Score: 0 03/22/20 24 1:45 PM EDT documented as of this encounter Care Teams Special Forces Communications Sergeant Relationship Specialty Start Date End Date Name, MD Charbel [address] [place] [address] PCP - General Family Medicine 02/26/16 Мария Gudino, Aleisha [address] [place] [address] Pharmacist Internal Medicine 04/29/23 documented as of this encounter
--- OUTSIDE RECORDS SUMMARY | 2025-01-06 13:52 | XMS_ITS | Encounter Summary ---
Author Organization [employer] Address [address] [place] [address] 7t [place] [address] Care Team Providers Care Side Framer Name Role Phone Name, Charbel CARRILLO Primary Care Provider [phone] Мария Gudino PharmD Unavailable [phone] Reason for Visit * Reason Onset Date Comments Hospital Follow-up 09/15/2024 Encounter Details Date Type Department Care Team ([facility] st Contact Info) Description 09/15/[address] [facility] [address] [place], [place] [phone] Name, MD Charbel [address] [place] [address] Hospital Follow-up Social History Tobacco Use Types [...] encounter Miscellaneous Notes * Telephone Encounter - Daryl Olivares - 09/15/2024 3:33 PM EDT Tc from pt requesting a HDF appt. Hospital: [facility] Date of admission: 09/14/2024 Discharge date: 09/15/2024 Diagnosed: Visual changes , Bipolar disorder documented in this encounter Plan of Treatment Upcoming Encounters Date Type Department Care Team (Late st Contact Info) Description 02/04/2025 2:[address] [facility] [address] [place] [address] Roz Le, ARLINE documented as of this encounter Goals Goal Patient Goal Type Associated Problems Recent Progress Patient-Stated? Author Record your blood pressure once per day Blood Pressure No Мария Gudino, PharmD Blood Pressure < 140/90 Blood Pressure 132/89(2023 10:37 AM EST) No Мария Gudino, PharmTereza Patient will adhere to medication regimen General No Мария Gudino PharmTereza LDL Calc < 70 Result Component No Мария Gudino PharmD Note: Per ADA for primary prevention of ASCVD documented as of this encounter Visit Diagnoses Not on filedocumented in this encounter Additional Health Concerns Assessment Noted Time PHQ-9 Depression Total Score: 0 03/22/20 24 1:45 PM EDT documented as of this encounter Care Teams Side Framer Relationship Specialty Start Date End Date Name, MD Charbel [address] [place] [address] PCP - General Family Medicine 02/26/16 Мария Gudino PharmD 230 [place] [address] Pharmacist Internal Medicine 04/29/23 documented as of this encounter
== END 2025-01-06 13:39 | disposition home or self-care (01) ==
PROVIDERS: PCP Internal Medicine Geriatric Medicine; Visit Provider Hospitalist
DX: J45.51 Severe persistent asthma with (acute) exacerbation (principal); J98.4 Other disorders of lung; G47.33 Obstructive sleep apnea (adult) (pediatric); M35.01 Sjogren syndrome with keratoconjunctivitis; J39.8 Other specified diseases of upper respiratory tract; J98.11 Atelectasis
CPT/HCPCS: 99214

== ENCOUNTER → 2025-01-06 12:57 | Outpatient (BNVA) | payer MEDICAID, SELFPAY | PROVIDERS: PCP Internal Medicine Geriatric Medicine; Visit Provider Hospitalist | DX: J45.51 Severe persistent asthma with (acute) exacerbation (principal); J98.4 Other disorders of lung; J39.8 Other specified diseases of upper respiratory tract; J98.11 Atelectasis; G47.33 Obstructive sleep apnea (adult) (pediatric); M35.01 Sjogren syndrome with keratoconjunctivitis | CPT/HCPCS: 99212 ==

== ENCOUNTER 2025-03-01 13:36 | Outpatient (AMB) | payer MEDICAID, SELFPAY ==
--- NOTE | 2025-03-01 13:37 | A.OFFVIS_ITS ---
Vital Signs 03/01/25 13:38 Height 5 ft 5 in Weight 186 lb 4.65 oz BMI 31.0 BP 136/90 H Blood Pressure Location Rt brachial Position Sitting Pulse 83 Pulse Source Pulse Oximeter Pulse Oximetry (%) 99 Oxygen Delivery Method Room Air Intake Visit Reasons: Shortness of breath Accompanied by: self Allergies latex [LATEX] Allergy (Severe, Verified 03/01/25 13:46) RASH passion fruit [PASSION FRUIT] Allergy (Severe, Verified 03/01/25 13:46) ANAPHYLAXIS Penicillins [PCN] Allergy (Severe, Verified 03/01/25 13:46) ANAPHYLAXIS shellfish derived [SHELLFISH DERIVED] Allergy (Severe, Verified 03/01/25 13:46) MOUTH SWELLING, ITCHY acetaminophen [From TYLENOL] Allergy (Mild, Verified 03/01/25 13:46) UNKNOWN ibuprofen [IBUPROFEN] Allergy (Mild, Verified 03/01/25 13:46) HX ULCERS TOLD NOT TO TAKE iodine [IODINE] Allergy (Mild, Verified 03/01/25 13:46) ITCHY lisinopril Adverse Reaction (Severe, Verified 03/01/25 13:46) Rash metformin Adverse Reaction (Severe, Verified 03/01/25 13:46) Rash HPI Comments Details: The patient is a 55 y/o woman with a history of tracheobronchomalacia in addition to asthma. She is status post tracheoplasty in [place] complicated by right-sided pleural effusion and significant right-sided chest discomfort. 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 More recently she did have a CT scan of the chest that [facility] demonstrating a nondisplaced rib fracture. No evidence of any pulmonary emboli. Her chest pain is still moderate severity. Limiting her activity. She is scheduled to have a repeat CT scan of the chest and bronchoscopy in [facility]. She continues to use her respiratory inhal ers for her asthma. We did give her further indication about which inhalers she should be using. She is status post bronchoscopy demonstrating patency of the trachea and a successful surgery. Her cough is significantly improved. She continues with respiratory therapy. 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 She did have a visit with the pain specialist. In the meantime the patient needs to be using her CPAP. She states that he needs to be adjusted. She will bring in the next time so we can adjusted the CPAP so she can use it as prescribed. She understands was so help her respiratory status and also decrease cardiovascular risks. 05/13/2023 the patient is here for a pulmonary follow-up visit. Overall the patient had been doing relatively well. She continues to have dyspnea on exertion. She also responds well to the oxygen specially if she is exercising. The patient recently went to [place] and completed a course of thermoplastic. Now she is doing well from an asthma standpoint. She is continues on the Xolair continues with allergy medicine. She did undergo pulmonary function studies today which we personally reviewed in the office. No evidence of any obstructive ventilatory defects. Although her total lung capacity still low at 73%. Indeed is better than before which was 69% and a diffusing capacity is a little better as well. Still this restrictive ventilatory defect does the affect her her symptoms. I do believe that she will benefit from pulmonary rehabilitation at this time and the patient is agreeable to this. In the mean time she is going to continue with current allergy therapy. She also is being monitored off for underlying pulmonary nodules. Her last CT scan was done at [facility] back in January 2023. No evidence of any residual rib fractures that she was wondering. Again pulmonary nodules that will need follow-up. During that visit she also has some stranding in the GI tract due to likely food poisoning. Also, still having daytime drowsiness. EPWORTH score 11/24. 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 Will order an in-lab PSG. Current the patient is doing well she will return to [place] sometime in November. Otherwise will continue to follow her every 4-6 months. 07/31/2023 the patient is here for pulmonary follow-up visit. The patient has been complaining of worsening asthma symptoms. She has been having increasing chest tightness and wheezing. This has been happening now for the last 3 days. She continues with Xolair injections in does have been helpful. Denies any sick contacts. She has been using her respiratory therapy. Her cough is been difficult because is been keeping her up at nighttime. Will go ahead and provide her with cough suppressant therapy. She is concerned because she has a trip planned in at this point with the asthma exacerbation the patient will go ahead and receive Solu-Medrol IM x1. She is going to continue respiratory therapy. If the patient is no better she will call the office for additional steroid therapy. The patient also continues to have significant daytime drowsiness. She did have a sleep study back in the summer demonstrating mild sleep apnea. Patient will try positional therapy. But, if the patient continues to be symptomatic with daytime drowsiness she would benefit from CPAP therapy. 11/28/2023 the patient is here for sick visit. Apparently the beginning of the year she was exposed to her grandson with the flu. Ultimately developed the flu she did call and she did take Tamiflu. Although her respiratory symptoms worsened and she required prednisone and also antibiotics. She will call the office when he stopped the medications to the pharmacy. She continues to have significant asthma chest tightness and wheezing. She is wondering what she can do. She also has chest congestion and difficult to expectorate the phlegm. The patient does have significant wheezing will provide her with Solu-Medrol 125 mg IM x1. The patient also benefit from another course of antibiotics and prednisone. She does have a scheduled bronchoscopy next week for follow-up after thrombo plasty. But at this point I did recommend to the patient that if she continues to have active asthma she should postpone specially if there has no need for any interventions. 03/25/2024 the patient is here for a pulmonary follow-up visit. The patient recently had a upper respiratory illness resulting in an asthma exacerbation. The patient required antibiotics and prednisone. She now has completed the course. She still has hoarseness. She feels some chest congestion but overall better. The patient does not need any additional prednisone antibiotics. If her symptoms worsen she can always consider calling to be reassessed. In the meantime she is changing pharmacy so I sent her all her medicines with the new pharmacy. She also has been using the CPAP at nighttime. The CPAP therapy continues to be affecting beneficial. She does try to use it more than 4 hours a night. She has not been getting supplies. I did send a script to [facility] in order for her to get supplies. I explained to the patient that she needs to ma ke sure she has adequate usage from the CPAP in order to be active with them. In the meantime I did provide her with an N30 eyes small mask that seemed to fit better than the P 10 nasal pillows that was irritating her nares. I will request that new mask to the [employer]. The patient also be following up in [place] soon. She is scheduled to have a PFT a CT scan and possibly a bronchoscopy to have an evaluation post thermoplastic. The patient will request her imaging studies in order for us to be able to review them over here. She was a;so evaluated by allergy and had allergy testing. She continues on the Xolair. Otherwise patient is without other complaints. She will follow-up in 3- 4 months. If any new issues arise she will call for an earlier assessment. 06/14/2024 the patient is here for a sick visit. Apparently patient was in his usual state health until this weekend started developing some difficulty with her breathing. Chemult like her throat was closing up. Chemult some difficulty swallowing. Although no sore throat. She continue using her respiratory therapy. As far as exposures she had been out during the day and pureed. There was positive sick contacts although she does not have any Viral syndrome symptoms. She also states that recently her Xolair was increased and she is not sure if that has anything to do with it. She does have an EpiPen although is not up today and is actually . I will send her new EpiPen to the pharmacy. She knows when to use it and how to use it. The patient does have some swelling on the throat area. I do not see any evidence of any angioedema or any edema of the uvula. I also do not appreciate any stridor at this time. Will go ahead and treat her with some prednisone to decrease the inflammatory changes and also will treat her for the possibility of bacterial pharyngitis. The patient be following up with her tow feeder in a couple weeks at which point she can continue to be evaluated as far as symptoms. But at this point she has been on Xolair for a long period of time and she has done well on it and I do not believe that the increasing the medication has any evidence of any adverse effects at this time. 07/26/2024 the patient is here for a pulmonary follow-up visit. She still struggling with her breathing. The patient is been concerned about the Xolair. She feels that she is having reactions to it. We last spoke she had to use an EpiPen twice. The patient also has been having some issue with hoarseness and raspiness of her voice. She has also had chest congestion chest tightness. The patient has required her nebulizer several times a day. She has also continue with respiratory therapy. We did do additional blood work. It looks like her IgE level continues to be elevated. Eosinophil levels okay. Although at this point because of adverse symptoms it would be reasonable to switch her biologic to a different agent. I do believe test part be a good option for her. Dupixent will be a good option to however, her eosinophils are within normal limits. She is also concerned about her tracheobronchomalacia. She feels like it is coming back. She is supposed to be seen by [place] soon. She continues use her CPAP every night. CPAP therapy has been affecting beneficial. She needs use more than 4 hours a night. Therefore will continue with the current respiratory therapy and allergy therapy. The patient has required prednisone multiple times as it is already. She has diabetes. We need to minimize her prednisone use. The patient does have chronic bronchitis so therefore the use of Daliresp at this time will be helpful. 09/30/2024 the patient is here for pulmonary follow-up visit. Overall she is doing fairly well. She is tolerating the test prior. Has not had any reactions like she was having before. Still has raspiness of the voice. Indeed he may be the inhalers. Although they seem to be working well for her. She does have a barium swallow scheduled soon to see if she has any potential reflux that may be contributing to her hoarseness. In the meantime the patient will be followed up at for her yearly follow-up CT scan and likely bronchoscopy. 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 She has regained some back. She is still dealing with that with the disbursing agent. The patient will return in 3 4 months. If she has any issues prior to that she will call for an earlier assessment. She is also using his CPAP every night. CPAP therapy has been affecting beneficial she does use it for more than 4 hours a night. She is using a nasal pillow. Although it is irritating her nostrils. Will go ahead and see if we can get her nasal mask instead. She can also try cradle. 01/06/2025 she is here for pulmonary follow-up visit. Overall she is doing fairly well. She did follow-up in [place] and did have a CT scan of the chest and also bronchoscopy. They found that she had a component of tracheomalacia but minimal. And she did have an intervention. They also found that she has some atelectasis to the right base. And felt that this part is affecting her gas exchange. She continues use oxygen. She does have the concentrator at home and has a portable tanks that she gets to [facility]. Although it has been difficult for her to carry because of the difficulty carrying tanks. Therefore will request a portable oxygen concentrator 2 L pulse she can using the meantime. The patient also continues to use her CPAP. The CPAP therapy continues to be affecting beneficial. She does use it for more than 4 hours a night. In addition to that she is on her allergy medication and also her asthma medications she continues to be on test by every month with good results. Right now she is consider having plastic surgery for her abdomen. She needed a preop clearance letter which I provided her otherwise the patient is doing well will follow-up in 2-3 months. 03/01/2025 the patient is here for pulmonary follow-up visit. She has been noticing increasing chest congestion specially after having a bronchoscopy in [place]. She also been a little more hoarse. She feels it is mainly in the middle the chest. She is bringing up some phlegm yellowish in color. Moderate severity. Denies any fevers or chills. After the bronchoscopy she did have some fevers but less typical. She did have significant secretions. She also had a chest x-ray with evidence of atelectasis or opacity in the right lower lobe. She will be following up in [place] soon. Otherwise will repeat the x-ray here to make sure that things are opening up. We could be mucus plugging. Th erefore will start her back on azithromycin 3 times a week and also she should be on Daliresp. It was prescribed but she had not been taking it. Explained to her would help with chronic bronchitis and does which she has and it would be helpful for her to do it. The patient also has been using her oxygen. Oxygen therapy has been affecting beneficial. She has had shoulder surgery and now recently elbow surgery and difficult time caring any oxygen tanks. She will benefit from a portable oxygen concentrator that will provide better portability outside of the home. She uses a 2 L pulse with activity. It is likely because of the atelectasis in the opacity in the right base that her gas exchange is impaired and that is what she needs the oxygen. Therefore, she will return in after 6 months of therapy will repeat an x-ray. She also has an appointment to go back to [place]. In the meantime she has been using the CPAP. CPAP therapy has been affecting beneficial. She does use it for more than 4 hours a night. 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 CJ (obstructive sleep apnea) CJ on CPAP Diabetes Sjogrens syndrome Lesion of bronchus Pneumonia Asthma Tracheobronchomalacia COVID-19 Surgical History (System 02/10/25 @ 16:16 by Deidra Melendez) History of carpal tunnel surgery of left wrist History of bronchoscopy History of endometrial ablation Hx of tubal ligation Family History Mother Asthma Father Diabetes Social History Household Members: Spouse and Children Alcohol intake: never Patient Tobacco Use Status: Former Tobacco user Tobacco use type: Cigarette Years Smoked: 2-3 yrs Second Hand Smoke Exposure: No Review of Systems Const Denies chills, Denies fatigue, Denies fever(s), Denies weight gain and Denies weight loss Eyes Reports as per HPI and Reports change in vision ENT Denies dizziness and Denies lip swelling Card Denies chest pain, Denies leg edema, Denies lightheadedness, Denies palpitations, Denies dyspnea on exertion, Denies orthopnea and Denies other Resp Reports change in phlegm color, Reports chest congestion, Reports cough, Denies dyspnea on exertion and Denies wheezing GI Denies hematochezia and Denies change in stool character Musc Denies abnormal gait, Denies muscle weakness, Denies numbness, Denies radiating pain into limb and Denies tingling Skin/Breast Denies rash Neuro Denies abnormal gait, Denies dizziness, Denies numbness and Denies tingling Psych Denies no additional complaints Endo Denies fatigue and Denies palpitations Anatoliy/Lymph Denies easy bleeding and Denies lymphadenopathy Aller/Immun Denies lip swelling and Denies wheezing Physical Exam Vital Signs: Last Vital Signs Pulse 83 03/01/25 13:38 BP 136/90 H 03/01/25 13:38 Pulse Ox 99 03/01/25 13:38 Oxygen Delivery Method Room Air 03/01/25 13:38 BMI result Body Mass Index 31.0 Const General: alert; No in distress HEENT Head: Yes normocephalic Throat: Yes posterior oropharynx abnormal ( erythematous), Yes postnasal drainage and No uvular edema Neck Neck: Yes normal visual inspection, Yes full ROM, Yes no lymphadenopathy and Yes lymphadenopathy Chest Chest palpation & inspection: normal inspection of the chest and tenderness rib (on the right side with areas of tenderness) Resp Effort & Inspection: normal respiratory effort and No prolonged expiratory phase Auscultation: no wheezes and diminished lung sounds Cardio Rate: regular rate Rhythm: regular rhythm Heart sounds: S1 normal heart sound present and S2 normal heart sound present GI Palpation (GI): Soft to palpation and nontender Auscultation: normal bowel sounds Skin General skin exam: rashes and/or lesions noted Extrem General: No cyanosis and Yes edema Assessment & Plan Assessment & Plan (1) Asthma: Comment: s/p thermoplasty Code(s): J45.909 - Unspecified asthma, uncomplicated Category: Medical Qualifiers: Asthma complication type: with acute exacerbation Asthma persistence: persistent Asthma severity: severe Qualified Code(s): J45.51 - Severe persistent asthma with (acute) exacerbation (2) Chronic restrictive lung disease: Code(s): J98.4 - Other disorders of lung Category: Medical (3) CJ (obstructive sleep apnea): Code(s): G47.33 - Obstructive sleep apnea (adult) (pediatric) Category: Medical (4) Sjogrens syndrome: Comment: ++SSa dx around 2016 HCQ 2017 Code(s): M35.00 - Sjogren syndrome, unspecified Category: Medical Qualifiers: Sjogren's organ involvement: keratoconjunctivitis Qualified Code(s): M35.01 - Sicca syndrome with keratoconjunctivitis (5) Tracheobronchomalacia: Comment: 2019: treated with tracheoplasty in [place] Code(s): J39.8 - Other specified diseases of upper respiratory tract Category: Medical (6) Atelectasis: Code(s): J98.11 - Atelectasis Category: Medical Plan continue Tezspire Continue Breo, incruse restart Daliresp start azithromycin Continue APAP, trial Nasal mask Xopenex - The patient cannot tolerate albuterol due to significant adverse effects with tachycardia at tremulousness and agitation PPI reflux diet F/U at [facility] continue oxygen: requesting POC 2L/pulse for better portability outside of the home. Difficult time with oxygen tanks with her orthopedic surgeries. F/U 6 weeks with CXR Orders: Orders XR chest 2V Today J98.11 - Atelectasis Medications: New azithromycin Take 1 tablet on Friday/Friday/Friday 250 mg PO 3XW 28 days 12 tabs 1RF K21.9 - Gastro-esophageal reflux disease without esophagitis Refilled roflumilast (Daliresp) 500 mcg PO DAILY 30 days 30 tabs 11RF benzonatate 200 mg PO BID 30 days PRN 60 caps 7RF cough Coding Level of Care Code Est Pt Level 4 (45331) Complex EM visit Add On G2211 Diagnoses Severe persistent asthma with acute exacerbation J45.51 Asthma complication type: with acute exacerbation Asthma persistence: persistent Asthma severity: severe Chronic restrictive lung disease J98.4 CJ (obstructive sleep apnea) G47.33 Sjogren's syndrome with keratoconjunctivitis sicca M35.01 Sjogren's organ involvement: keratoconjunctivitis Tracheobronchomalacia J39.8 Atelectasis J98.11 Time Spent (min) 17
[2025-03-01 13:38] VITALS: BP 136/90; PULSE 83; O2SAT 99; BMI 31.0
--- OUTSIDE RECORDS SUMMARY | 2025-03-01 16:40 | XMS_ITS | Clinical Summary ---
Author Organization [facility] ity Address [address] [place] [address] Care Team Providers Care Police Superintendent Name Role Phone Name, Charbel CARRILLO Primary Care Provider [phone] Surgical History Surgery Date Site/Laterality Comments SECTION PROCEDURE: HISTORICAL ; COMMENT: 6 CHOLECYSTECTOMY PROCEDURE: HISTORICAL CHOLECYSTECTOMY APPENDECTOMY PROCEDURE: HISTORICAL APPENDECTOMY Medical History Medical History Date Comments Carpal tunnel syndrome 09/09/2006 DX:Carpal tunnel syndrome Anxiety 07/02/2007 DX:Anxiety Asthma 09/09/2006 DX:Asthma Bipolar I disorder (CMS/HCC V24, CMS/HCC V28) 07/02/2007 DX:Bipolar I disorder ([facility]) Chronic knee pain 07/24/2018 DX:Chronic kne e [...] DX :CJ (obstructive sleep apnea) Sjogren's syndrome (CMS/HCC V24) 07/24/2018 DX:Sjogren's syndrome (HCC) Family History Medical History Relation [...] COVID-19 Vaccine ( season) 2024 Influenza Vaccine (Season Ended) 2025 10/09/2014, 12/05/2009, 12/05/2009, Additional history exists HIB Vaccines [...] age to complete this topic Meningococcal B Vaccine Aged Out No l onger eligible based on patient's age to complete this topic RSV Immunization Patients Under 20 months Aged Out No longer eligible based on patient's age to complete this topic Varicella Vaccines Aged Out No longer eligible based on patient's age to complete this topic Advance Directives Documents on File Type Date Recorded Patient Pattern 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
--- OUTSIDE RECORDS SUMMARY | 2025-03-01 16:40 | XMS_ITS | Encounter Summary ---
Author Organization [employer] Address [address] [place] [address] [address] [place] [address] Care Team Providers Care Cigarette Making Examiner Name Role Phone Name, Charbel CARRILLO Primary Care Provider [phone] Мария Gudino PharmD Unavailable [phone] Reason for Visit * Reason Onset Date Comments Error 12/08/2023 Encounter Details Date Type Department Care Team ([facility] st Contact Info) Description 12/08/2023 Telephone [facility] [address] [place], [place] [id number] Name, MD Charbel [address] [place], [place] [id number] Error Social History Tobacco Use Types Packs/Day [...] Care Team (Late st Contact Info) Description 05/10/2025 3:45 PM EDT Office Visit [facility] [address] [place] [id number] Name, MD Charbel [address] [place] [id number] documented as of this encounter Goals Goal Patient Goal Type Associated Problems Recent Progress Patient-Stated? Author Record your blood pressure once per day Blood Pressure No Puia, Мария, PharmD Blood Pressure < 140/90 Blood Pressure 156/98( 025 12:25 PM EDT) No Puia, Мария, PharmD documented as of this encounter Visit Diagnoses Not on filedocumented in this encounter Additional Health Concerns Assessment Noted Time PHQ-9 Depression Total Score: 0 10/23/20 22 3:25 PM EST documented as of this encounter Care Teams Cigarette Making Examiner Relationship Specialty Start Date End Date NameCharbel MD [address] [place] [id number] PCP - General Family Medicine 02/26/16 Puia, Мария, PharmD [address] [place] [phone] Pharmacist Internal Medicine 04/29/23 documented as of this encounter
--- OUTSIDE RECORDS SUMMARY | 2025-03-01 16:40 | XMS_ITS | Encounter Summary ---
Author Organization [employer] Address [address] [facility] 7 [place] [address] Care Team Providers Care Enterprise Systems Manager Name Role Phone Name, Charbel CARRILLO Primary Care Provider [phone] Мария Gudino PharmD Unavailable [phone] Encounter Details Date Type Department Care Team ([facility] st Contact Info) Description 09/24/2023 Abstract [facility] [address] [place], [place] [phone] Name, MD Charbel [address] [place] [address] Social History Tobacco Use Types Packs/Day Years [...] Description 05/10/2025 3:45 PM EDT Office Visit [facility] [address] [place] [address] Charbel Lyons MD [address] [place] [address] documented as of this encounter Goals Goal [...] documented as of this encounter Care Teams Enterprise Systems Manager Relationship Specialty Start Date End Date Charbel Lyons MD [address] [place] [address] PCP - General Family Medicine 02/26/16 Puia, Мария, PharmD [address] [place] [address] Pharmacist Internal Medicine 04/29/23 documented as of this encounter
--- OUTSIDE RECORDS SUMMARY | 2025-03-01 16:40 | XMS_ITS | Clinical Summary ---
Author Organization [facility] Address [address] [place] [address] Phone Care Team Providers Care Human Performance Technologist Name Role Phone Unavailable Primary Care Provider Unavailabl e Allergies Active Allergy Reactions Criticality Noted Date Comments Acetaminophen Other (see comments) 10/26/2018 Unable to take due to liver issues Iodinated Contrast Media Other (see comments) 0 08/01/2021 Ibuprofen Other (see comments) 10/26/2018 Due to [place] Iodine Other (see comments) High 07/24/2018 Latex Hives,Itching,Other (see comments) 09/09/2006 Mangifera Indica Swelling 02/24/2015 Kaleb Flavoring Agent (Non-Screening) Other (see comments) 05/30/2009 Metformin Other (see comments) 08/01/2021 Nsaids Other (see comments) 08/01/2021 Passion Fruit Flavoring Agent (Non-Screening) Other (see comments) 05/30/2009 Penicillins Hives,Itching,Other (see comments),Swelling 02/24/2015 Shellfish-Derived Products Swelling 02/24/2015 Medications Insulin Lispro, 1 Unit Dial, 100 UNIT/ML solution pen-injector Inject as directed Comments: Patient Notes: Sliding scale Active ARIPiprazole (ABILIFY) 20 MG tablet Take 20 mg by mouth 1 (one) time each day Active aspirin (ST CHARLES) 81 MG EC tablet Take 81 mg by mouth 1 (one) time each day Active carvedilol (COREG) 12.5 MG tablet Take 12.5 mg by mouth 2 (two) times a day Active clonazePAM (KlonoPIN) 1 MG tablet Take 1 mg by mouth in the morning and 1 mg at noon and 1 mg in the evening and 1 mg before bedtime. 05/19/2015 Active doxepin (SINEquan) 50 MG capsule Take 50 mg by mouth Active gabapentin (NEURONTIN) 400 MG capsule Take 800 mg by mouth in the morning and 800 mg at noon and 800 mg in the evening and 800 mg before bedtime. Active hydroxychloroqu ine (PLAQUENIL) 200 MG tablet Take 200 mg by mouth 2 (two) times a day Active insulin glargine (Lantus SoloStar) 100 UNIT/ML injection Inject 32 Units under the skin Active oxyCODONE (ROXICODONE) 10 MG immediate release tablet Take 10 mg by mouth 4 (four) times a day 06/18/2019 Active SUMAtriptan (IMITREX) 100 MG tablet Take 100 mg by mouth Active zolpidem (AMBIEN) 10 MG tablet Take 10 mg by mouth at night if needed 06/30/2021 Active buPROPion XL (WELLBUTRIN XL) 300 MG 24 hr tablet Take 300 mg by mouth 1 (one) time each day Do not crush, chew, or split. Active Empagliflozin (Jardiance) 10 MG tablet Take 10 mg by mouth 1 (one) time each day Active celecoxib (CeleBREX) 200 MG capsule Take 300 mg by mouth 1 (one) time each day if needed 07/31/2022 Active Trulicity 1.5 MG/0.5ML solution pen-injector 4 mL 07/07/2022 Active valsartan-hydro CHLOROthiazide (DIOVAN-HCT) 320-25 MG per tablet Take 1 tablet by mouth in the morning. 04/09/2024 Active Active Problems Problem Noted Date Diagnosed Date Hemorrhoid 08/12/2023 08/21/2023 Pain in right shoulder 05/27/2023 3 Overview (08/21/2023): Used to be seen for PM at [facility], got injections, not better, ref to [...] on 09 January 2016 14:38 Encounter info: [id number], GARCIA MRI [facility], [facility], 01/08/2016 - 01/15/2016 * Final Report * Reason For Exam rt shoulder pain RCT;rt shoulder pain RCT RESULT: MRI Joint Ext Upper W/O Contrast Right [facility] VISIT NUMBER :[id number] Patient Name : Sade Izaguirre Date of : 1970 Date of Exam : 01/08/2016 Referring Physician : GINA CROFT [address], Attn: [place] [address] Exam : MR - SHOULDER (C-) CPT 64097 - RIGHT Room Description : [facility] [...] Signed Date/Time: 01/09/16 2:38 pm Transcribed By: LINSEY Transcribed Date/Time: 01/09/16 2:38 pm MRI Joint Ext Upper W/O Contrast Right This document has an image Osteoarthritis of right knee joint 02/05/2023 08/21/2023 Overview (08/21/2023): Severe, follows at 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/23/2020 023 Non-cardiac chest pain 08/18/2018 3 Seborrheic dermatitis of scalp 08/18/2018 1 Allergic rhinitis 06/23/2018 08/21/2023 Tachycardia 06/23/2018 08/21/2023 Moderate persistent asthma 04/29/201808/21 Foot swelling 11/03/2017 08/21/2023 Swelling of hand 11/03/2017 08/21/2023 Moderate manic bipolar I disorder 07/05/2016 08/21/2023 Opioid dependence 05/13/2016 08/21/2023 Non-specific colitis 05/13/2016 08/21/2023 Gestational diabetes mellitus 02/26/2016 Hypertensive disorder 09/28/2014 Resolved Problems Problem Noted Date Diagnosed Date Resolved Date Fibromyalgia 08/01/2021 08/01/2021 Prolapsed cervical intervertebral disc 08/01/2021 08/01/2021 Overview (08/01/2021): MRI done at [place] 11.15.14 Shoulder pain 08/01/2021 08/01/2021 Overview (08/01/2021): Used to be seen for PM at [facility], got injections, not better, ref to [...] on 09 January 2016 14:38 Encounter info: [id number], SARCOXIE MRI [facility], 01/08/2016 - 01/15/2016 * Final Report * Reason For Exam rt shoulder pain RCT;rt shoulder pain RCT RESULT: MRI Joint Ext Upper W/O Contrast Right [facility] VISIT NUMBER :[id number] Patient Name : Sade Izaguirre Date of : 1970 Date of Exam : 01/08/2016 Referring Physician : GINA CROFT [address], Attn: [place] [address] Exam : MR - SHOULDER (C-) CPT 91498 - RIGHT [facility] : Ax PD Fsat, [...] Contrast Right This document has an image Multiple nodules of lung 07/05/2019 Obese 07/05/2019 08/01/2021 Tracheomalacia 09/09/2018 08/01/2021 Cough 08/21/2018 08/01/2021 Past history of ge stational diabetes mellitus 07/24/2018 08/01/2021 Pain of knee region 07/24/2018 08/01/20 21 Polyp of colon 07/24/2018 08/01/2021 Sj??gren's syndrome 07/24/2018 08/01/20 21 Obstructive sleep apnea syndrome 07/13/2018 08/01/2021 History of operative procedure on knee 01/18/2016 08/01/2021 Overview (08/01/2021): 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 History of procedure 09/08/2015 021 Overview (08/17/2024): BILATERAL MAMMOGRAM SCREENING DONE AT [facility] BREAST & WELLNESS RESULTS WAS SENT TO MEDICAL RECORDS TO BE SCAN Replacing diagnoses that were inactivated after the 08/17/24 Regulatory Import Migraine 01/04/2009 08/01/2021 Environmental allergy 05/16/20082020 Hypertriglyceridemia 01/26/2008 021 Gastroesophageal reflux disease 10/23/2007 08/01/2021 Anxiety 07/02/2007 08/01/2021 Asthma 09/09/2006 08/01/2021 Carpal tunnel syndrome 09/09/200608/01 Chronic low back pain 09/09/20062020 Overview (08/01/2021): chronic back pain and knee pain R>L Depressive disorder 09/09/2006 08/01/20 21 Overview (08/01/2021): [facility] opioid induced constipation 09/09/2006 08/01/2021 Immunizations Immunization Administration Dates Next Due H1N1 Inj Preservative Free 12/05/2009 HepB-CpG 07/07/2023,04/01/2023 Influenza TIV (IM) 10/09/2014, 0,08/08/2008,09/30 Influenza, Quadrivalent, Pre servative Free 08/27/2023,08/06/2022,10/23/2021,08/19,08/17/2019,10/09/2014,12/05/2009 ,08/08/2008,09/30/2006 Influenza, Quadrivalent, Wit h Preservative 08/18/2018,09/24/2017,08/09/2016 Influenza, Unspecified 10/23/2021,2019,08/17/2019,08/18,09/24/2017,08/09/2016 Moderna SARS-COV-2 08/26/2022,,11/13/2021,02/22,01/25/2021 PPD Test 12/10/2006 Pneumococcal Conjugate Pcv 20 04/01/2023 Pneumococcal Polysaccharide 05/30/2009 Shingrix 07/07/2023,04/01/2023 Td 09/30/2006 Td, Not Adsorbed 09/30/2006 Td, Unspecified 09/30/2006 Tdap 11/03/2017 Family History Medical History Relation Comments Diabetes Father type II Hypertension Father Cancer Mother Ovarian Hypertension Mother Relation Status Comments Father Mother Social History Tobacco Use Types Packs/Day Years Used Date Smoking Tobacco: Former Tobacco Cessation:Counseling Given: Not Answered Comments:Smoking History Info:Every day Alcohol Use Standard Drinks/Week Comments Yes 0 (1 standard drink = 0.6 oz pure alcohol) Alcoholic Drinks/day: Occasional social drink Comments Unknown Sex and Gender Information Value Date Recorded Sex Assigned at Not on file Legal Sex Female 4:59 PM EST Gender Identity Not on file Sexual Orientation Not on file Last Filed Vital Signs Vital Sign Reading Time Taken Comments Blood Pressure 148/88 12/05/2020 12:00 PM EST Pulse 88 07/30/2024 11:32 AM EDT Temperature - - Respiratory Rate - - Oxygen Saturation 98% 07/30/2024 11:32 AM EDT Inhaled Oxygen Concentration - - Weight 79.4 kg (175 lb) 07/30/2024 11:32 AM EDT Height 165.1 cm (5' 5 ) 12/05/2020 12:00 PM EST Body Mass Index 29.12 12/05/2020 12:00 PM EST Plan of Treatment Health Maintenance Due Date Last Done Comments Breast Cancer Screening 1970 Colorectal Cancer Screening: Annual FOBT 2018 Colorectal Cancer Screening: Colonoscopy 2018 Colorectal Cancer Screening: Sigmoidoscopy 2018 Diabetes: Ophthalmology Exam 08/01/2021 Diabetes: Pedal Pulse Checked 08/01/2021 Diabetes: Sensory Foot Exam 08/01/2021 Diabetes: Visual Foot Exam 08/01/2021 Hepatitis B Vaccine (3 of 3 - 19+ 3-dose series) 10/02/2023 07/07/2023, 04/01/2023 Diabetes: Hemoglobin A1C 06/22/2024 03/22/2024 Influenza Vaccine (Season Ended) 2025 08/27/2023, 08/06/2022, 10/23/2021, Additional history exists Pneumococcal Vaccine: 50+ Years Completed , 05/30/2009 Pneumococcal Vaccine: Peds ( 0 to 5 Years) and At-Risk Patients (6 to 49 Years) Discontinued 04/01/2023, 05/30/2009 Insurance Medicaid [place] Medicaid [place]
--- OUTSIDE RECORDS SUMMARY | 2025-03-01 16:40 | XMS_ITS | Encounter Summary ---
Author Organization [employer] Address [address] [place] [address] [facility] [place] [address] Care Team Providers Care Arbor Press Operator Name Role Phone Name, Charbel CARRILLO Primary Care Provider [phone] Мария Gudino PharmD Unavailable [phone] Reason for Visit * Reason Onset Date Comments Referral 03/24/2023 Encounter Details Date Type Department Care Team ([facility] st Contact Info) Description 03/24/2023 Telephone [facility] [address] [place], [place] [phone] Name, MD Charbel [address] [place] [address] Referral Social History Tobacco Use Types Packs/Day [...] Miscellaneous Notes * Telephone Encounter - Nayan Gustavo - 03/24/2023 9:05 AM EDT Tc from pt requesting a new updated referral [facility] be [facility] stated needs it before her appt on april 082022 Please contact pt at [phone] documented in this encounter Plan of Treatment Upcoming Encounters Date Type Department Care Team (Late st Contact Info) Description 05/10/2025 3:45 PM EDT Office Visit [facility] [address] [place] [address] Name, MD Charbel [address] [place] [address] documented as of this encounter Visit Diagnoses Not on filedocumented in this encounter Additional Health Concerns Assessment Noted Time PHQ-9 Depression Total Score: 0 10/23/20 22 3:25 PM EST documented as of this encounter Care Teams Arbor Press Operator Relationship Specialty Start Date End Date Name, MD Charbel [address] [place] [address] PCP - General Family Medicine 02/26/16 Мария Gudino, FarihaD [address] [place] [address] Pharmacist Internal Medicine 04/29/23 documented as of this encounter
--- OUTSIDE RECORDS SUMMARY | 2025-03-01 16:40 | XMS_ITS | Encounter Summary ---
Author Organization [employer] Address [address] [place] [address] 7 [place] [address] Care Team Providers Care Exchange Mechanic Name Role Phone Name, Charbel CARRILLO Primary Care Provider [phone] Мария Gudino PharmD Unavailable [phone] Reason for Visit * Reason Comments Med Refill Encounter Details Date Type Department Care Team ([facility] st Contact Info) Description 01/07/2025 Refill [facility] [address] [place], [place] [phone] Name, MD Charbel [address] [place] [address] Vomiting and diarrhea Social History Tobacco Use Types Packs/Day Years [...] Description 05/10/2025 3:45 PM EDT Office Visit [facility] [address] [place] [address] Name, MD Charbel [address] [place] [address] documented as of this encounter Goals Goal Patient Goal Type Associated Problems Recent Progress Patient-Stated? Author Record your blood pressure once per day Blood Pressure No Puia, Мария, PharmD Blood Pressure < 140/90 Blood Pressure 156/98(2024 12:25 PM EDT) No Puia, Мария, PharmD Patient will adhere to medication regimen General No Puia, Мария, PharmD LDL Calc < 70 Result Component No Puia, Мария, PharmD Note: Per ADA for primary prevention of ASCVD documented as of this encounter Visit Diagnoses Diagnosis Vomiting and diarrhea documented in this encounter Additional Health Concerns Assessment Noted Time PHQ-9 Depression Total Score: 0 03/22/20 24 1:45 PM EDT documented as of this encounter Care Teams Exchange Mechanic Relationship Specialty Start Date End Date Name, MD Charbel [address] [place] [address] PCP - General Family Medicine 02/26/16 Мария Gudino PharmD [address] [place] [address] Pharmacist Internal Medicine 04/29/23 documented as of this encounter
--- OUTSIDE RECORDS SUMMARY | 2025-03-01 16:40 | XMS_ITS | Encounter Summary ---
Author Organization [employer] Address [address] [place] [address] 7 [place] [address] Care Team Providers Care Rn Neurology Name Role Phone Name, Charbel CARRILLO Primary Care Provider [phone] Мария Gudino PharmD Unavailable [phone] Reason for Visit * Reason Comments Med Refill Encounter Details Date Type Department Care Team ([facility] st Contact Info) Description 05/29/2024 Refill [facility] [address] [place], [place] [phone] Name, MD Charbel [address] [place] [address] Social History Tobacco Use Types Packs/Day Years [...] Description 05/10/2025 3:45 PM EDT Office Visit [facility] [address] [place] [address] NameCharbel MD [address] [place] [address] documented as of this encounter Goals Goal [...] as of this encounter Care Teams Rn Neurology Relationship Specialty Start Date End Date Charbel Lyons MD [address] [place] [address] PCP - General Family Medicine 02/26/16 Мария Gudino, Aleisha [address] [place] [address] Pharmacist Internal Medicine 04/29/23 documented as of this encounter
--- OUTSIDE RECORDS SUMMARY | 2025-03-01 16:40 | XMS_ITS | Encounter Summary ---
Author Organization [employer] Address [address] [facility] 7 [place] [address] Care Team Providers Care Boilermaker'S Assistant Name Role Phone Name, Charbel CARRILLO Primary Care Provider [phone] Мария Gudino PharmD Unavailable [phone] Encounter Details Date Type Department Care Team ([facility] st Contact Info) Description 09/24/2023 Abstract [facility] [address] [place], [place] [phone] Name, MD Charbel [address] [place] [address] Social History Tobacco Use Types Packs/Day Years [...] Description 05/10/2025 3:45 PM EDT Office Visit [facility] [address] [place] [phone] Charbel Lyons MD [address] [place] [address] documented as of this encounter Goals Goal [...] documented as of this encounter Care Teams Boilermaker'S Assistant Relationship Specialty Start Date End Date Charbel Lyons MD [address] [place] [address] PCP - General Family Medicine 02/26/16 Puia, Мария, PharmD [address] [place] [address] Pharmacist Internal Medicine 04/29/23 documented as of this encounter
--- OUTSIDE RECORDS SUMMARY | 2025-03-01 16:40 | XMS_ITS | Encounter Summary ---
Author Organization [employer] Address [address] [place] [address] 7 [place] [address] Care Team Providers Care Automation Qa Lead Name Role Phone Name, Charbel CARRILLO Primary Care Provider [phone] Мария Gudino PharmD Unavailable [phone] Reason for Visit * Reason Onset Date Comments Hospital Follow-up 09/29/2024 Encounter Details Date Type Department Care Team (Late st Contact Info) Description 09/29/2024 Telephone [facility] [address] [place], [place] [phone] Name, MD Charbel [address] [place] [address] Hospital Follow-up Social History Tobacco Use Types [...] from pt requesting a HDF appt. Hospital: [facility] Date of admission: 08/15/24 Discharge date: Diagnosed: stroke and eye symptoms , eye injection *Send message to [facility] Clinical Care Coordinators documented in this encounter Plan of Treatment Upcoming Encounters Date Type Department Care Team (Late st Contact Info) Description 05/10/2025 3:45 PM EDT Office Visit [facility] [address] [place] [address] Name, MD Charbel [address] [place] [address] documented as of this encounter Goals Goal Patient Goal Type Associated Problems Recent Progress Patient-Stated? Author Record your blood pressure once per day Blood Pressure No Мария Gudino, PharmD Blood Pressure < 140/90 Blood Pressure 156/98(2024 12:25 PM EDT) No Мария Gudino, PharmD Patient will adhere [...] documented as of this encounter Care Teams Automation Qa Lead Relationship Specialty Start Date End Date Name, MD Charbel [address] [place] [address] PCP - General Family Medicine 02/26/16 Мария Gudino PharmD [address] [place] [address] Pharmacist Internal Medicine 04/29/23 documented as of this encounter
--- OUTSIDE RECORDS SUMMARY | 2025-03-01 16:40 | XMS_ITS | Clinical Summary ---
Author Organization [employer] Address [address] [place] [address] 7 [place] [address] Care Team Providers Care Activities Coordinator Name Role Phone Name, Charbel CARRILLO Primary Care Provider [phone] Мария Gudino PharmD Unavailable [phone] Allergies Active Allergy Reactions Criticality Noted [...] 02/24/2015 Other reaction(s): Hives / Skin Rash,SOB [place] Flavoring Agent (Non-Screening) Wheezing 05/30/2009 Hives/rash/sob Other [...] exceed 200mg in 24 hours Active Umeclidinium Dwarf (Incruse Ellipta) 62.5 MCG/ACT aerosol powder Inhale 1 puff 1 (one) time each day. Active empagliflozin (Jardiance) 25 MG Take 1 tablet by mouth in the morning. Active levalbuterol (Xopenex) 1.25 MG/3ML nebulizer solution Inhale 3 mL every 6 (six) hours if needed for shortness of breath. Active Misc. Devices (Pulse Oximeter) misc Use as Directed 11/20/2 020 Active levalbuterol (Xopenex) 45 MCG/ACT inhaler Inhale 2 puffs every 6 (six) hours if needed for shortness of breath. 022 Active zolpidem (Ambien) 10 MG tablet Take 1 tablet by mouth if needed at bedtime. 022 Active insulin pen needle (BD Pen Needle Yajaira U/F) 32G x 4 mm misc Inject under the skin in the morning, at noon, and at bedtime. Use as instructed Active ARIPiprazole (Abilify) 20 MG tabletIndications :Bipolar affective disorder, remission status unspecified (CMS/[facility]) Take 1 tablet (20 mg) by mouth [...] by mouth once daily 180 tablet 1 024 Active melatonin 5 MG tablet Take 1 tablet (5 mg) by mouth at bedtime. 90 tablet 1 024 Active FREESTYLE LITE test strip 1 each by Other route 3 times daily. Use to test blood sugar three times daily as directed 01/26/2 024 Active OXcarbazepine (Trileptal) 300 MG tablet Take [...] hyperglycemia, with long-term current use of insulin (CMS/[facility]) Take 1 tablet (81 mg) by mouth Once per day. 90 tablet 3 Active minoxidil (Loniten) 2.5 MG tablet Take 1 tablet (2.5 mg) by mouth Once per day. 30 tablet 11 024 2024 Active Xolair 75 MG/0.5ML injection Active celecoxib (CeleBREX) 200 MG capsule TAKE [...] 024 2024 Active Blood Glucose Monitoring Suppl (FreeStyle Switchback Lite) w/Device kit Use to test blood sugar 3 times daily 1 kit Active FreeStyle lancets USE ONE LANCET THREE TIMES DAILY 100 each 11 Active loratadine (Claritin) 10 MG tablet Take 1 tablet by mouth Once per day. Active mometasone (Elocon) 0.1 % ointment APPLY TOPICALLY TO THE AFFECTED AREA IN THE MORNING 15 g Active sucralfate (Carafate) 1 g tabletIndications :Vomiting and diarrhea TAKE 1 TABLET BY MOUTH BEFORE BREAKFAST, LUNCH, EVENING MEAL, AND AT BEDTIME X 14 DAYS 56 tablet Active fluocinolone (Synalar) 0.01 % external solution [...] EACH NOSTRIL ONCE A DAY 48 g Active pantoprazole (ProtoNix) 40 MG EC tablet TAKE 1 TABLET(40 MG) BY MOUTH BEFORE BREAKFAST. DO NOT CRUSH, CHEW, OR SPLIT 90 tablet Active insulin lispro (HumaLOG) 100 UNIT/ML injection ADMINISTER 3 TO 13 UNITS UNDER THE SKIN THREE TIMES DAILY BEFORE MEALS DIRECTED PER SLIDING SCALE 15 mL 3 Active atorvastatin (Lipitor) 40 MG tabletIndications :Type 2 diabetes mellitus with hyperglycemia, with long-term current use of insulin (CMS/HCC),Hyperli pidemia, unspecified hyperlipidemia type TAKE 1 TABLET(40 MG) BY MOUTH DAILY 90 tablet 3 Active gabapentin (Neurontin) 800 MG tablet Take 1 tablet (800 mg) by mouth 2 times daily. 60 tablet 11 025 2025 Active semaglutide (Ozempic, 1 MG/DOSE,) 2 MG/1.5ML solution pen-injector Inject 1 mg under the skin 1 (one) time per week. 2 each Active oxyCODONE (Roxicodone) 10 MG immediate release tabletIndications :Chronic pain syndrome Take 1 tablet (10 mg) by mouth every 6 (six) hours if needed for severe pain for up to 28 days. 112 tablet 025 2024 Active atorvastatin (Lipitor) 40 MG tabletIndications :Type 2 diabetes mellitus with hyperglycemia, with long-term current use of insulin (CMS/HCC),Hyperli pidemia, unspecified hyperlipidemia type Take 1 tablet (40 mg) by mouth Once per day. 90 tablet 3 024 2024 Discontinued Trulicity 4.5 MG/0.5ML solution pen-injector Inject 4.5 mg under the skin 1 (one) time per week. 4 each 024 2024 Discontinued(S ramirez effects) gabapentin (Neurontin) 400 MG capsuleIndication s:Chronic pain syndrome TAKE 1 CAPSULE(400 MG) BY MOUTH TWICE DAILY 60 capsule 3 024 2024 Discontinued(I neffective) oxyCODONE (Roxicodone) 10 MG immediate release tabletIndications [...] spondylosis, fibromyalgia, chronic right knee pain Last [employer] Agreement: 10/23/23 Additional considerations/risk factors: multiple sedating [...] Used to be seen for PM at [facility], got injections, not better, ref to [...] on 09 January 2016 14:38 Encounter info: [id number], [place] [facility] [place] 01/08/2016 - 01/15/2016 * Final Report * Reason For Exam rt shoulder pain RCT;rt shoulder pain RCT RESULT: MRI Joint Ext Upper W/O Contrast Right [facility] VISIT NUMBER :[id number] Patient Name : Sade Izaguirre Date of : 1970 Date of Exam : 01/08/2016 Referring Physician : GINA CROFT [address], Attn: [place] [address] Exam : MR - SHOULDER (C-) CPT 17431 - RIGHT [facility] : Ax PD Fsat, [...] Used to be seen for PM at [facility], got injections, not better, ref to [...] on 09 January 2016 14:38 Encounter info: [id number], [place] [facility] [place] 01/08/2016 - 01/15/2016 * Final Report * Reason For Exam rt shoulder pain RCT;rt shoulder pain RCT RESULT: MRI Joint Ext Upper W/O Contrast Right [facility] VISIT NUMBER :[id number] Patient Name : Sade Izaguirre Date of : 1970 Date of Exam : 01/08/2016 Referring Physician : GINA CROFT [address], Attn: [place] [address] Exam : MR - SHOULDER (C-) CPT 81679 - RIGHT [facility] Technique : Ax PD Fsat, [...] knee 02/05/2023 Overview (02/05/2023): Severe, follows at [facility] Was told too young for TKR [...] Encounters Date Type Department Care Team Description 02/18/2025 Refill [facility] [address] [place] [address] Charbel Lyons MD Chronic pain syndrome 02/16/2025 Telephone [facility] [address] [place] [address] Machelle Yanes LPN Prior Authorization 02/03/2025 11:30 AM EDT Office Visit [facility] [address] [place] [address] Charbel Lyons MD Type 2 diabetes mellitus with chronic kidney disease, with long-term current use of insulin, unspecified CKD stage (CMS/HCC) (Primary Dx); Dysphagia, unspecified type; Essential hypertension; Moderate persistent asthma, unspecified whether complicated; Chronic pain syndrome 02/03/2025 Travel 02/03/2025 Refill [facility] [address] [place] [address] Мария Gudino PharmD Type 2 diabetes mellitus with hyperglycemia, with long-term current use of insulin (CMS/[facility]); Hyperlipidemia, unspecified hyperlipidemia type 02/01/2025 Telephone [facility] [place] [address] Roz Le, RN Rescheddule [employer] RV 02/04/25 01/31/2025 Telephone [facility] [address] [place] [address] Charbel Lyons MD [facility] (Glove, exam vnyl med) 01/28/2025 Population Health Risk Score [facility] () Department [address] [place] [phone] Provider, Population Health Generic 01/25/2025 Refill [facility] [address] [place] [address] Charbel Lyons MD 01/13/2025 Telephone [facility] [address] [place], [place] [phone] Nick Magdaleno [place] Appointment Request ( dr. Lyons because recently had surgery done on 11/29 for arm and pulmonary surgery on 12/30 . ) 01/13/2025 Telephone [facility] [address] [place] [address] Charbel Lyons MD Appointment Request 01/13/2025 Refill [facility] [address] [place] [address] Charbel Lyons MD Chronic pain syndrome 01/07/2025 Refill [facility] [address] [place] [address] Charbel Lyons MD Vomiting and diarrhea 12/30/2024 Patient Outreach [facility] [address] [place] [address] Charbel Lyons MD Care Coordination (Outreach) 12/30/2024 Telephone [facility] [address] [place] [address] Charbel Lyons MD Care Coordination ([facility] program graduation) 12/25/2024 Refill [facility] [address] [place] [address] Charbel Lyons MD 12/23/2024 Refill [facility] [address] [place] [address] Lizet Pickering DO Acute pain of right shoulder 12/23/2024 Refill [facility] [address] [place] [address] Charbel Lyons MD Vomiting and diarrhea; Hyperglycemia; Acute pain of right shoulder 12/21/2024 Refill [facility] [address] [place] [address] Charbel Lyons MD Chronic pain syndrome 12/21/2024 Telephone [facility] [address] [place] [address] Jyoti Medina [place] 12/17/2024 Patient Outreach [facility] [address] [place] [address] Charbel Lyons MD Care Coordination (Outreach) 12/02/2024 Patient Outreach [facility] [address] [place] [address] Charbel Lyons MD Care Coordination (Outreach) from Last 3 Months Immunizations Name Administration Dates Next Due HepB-CpG 07/07/2023,04/01/2023 Influenza injectable quadriv alent IIV4 with preservative 08/18/2018,09/24/2017,08/09/2016 Influenza injectable quadriv alent preservative free 08/27/2023,08/06/2022,10/23/2021,08/19,08/17/2019,10/09/2014,12/05/2009 ,08/08/2008,09/30/2006 Influenza, IIV3, injectable 10/23/2021,1 ,08/17/2019,08/18,09/24/2017,08/09/2016,10/09/2014 ,12/05/2009,08/08/2008,09/30/2006 Influenza, Unspecified 10/23/2021,2019,08/17/2019,08/18,09/24/2017,08/09/2016 Influenza, seasonal, injecta ble, preservative free 08/17/2024 Moderna Covid-19 Vaccine 12+ 08/26/2022, 03/14/2022,11/13/2021,02/22,01/25/2021 Moderna Covid-19 Vaccine 6+ Bivalent 08/26/2022 Novel [id number], preservative-free 12/05/2009 PPD Test 12/10/2006 Pfizer Covid-19 [...] Sign Reading Time Taken Comments Blood Pressure 156/98 02/03/2025 12:25 PM EDT Pulse 82 02/03/2025 10:54 AM EDT Temperature 34.9 ??C (94.9 ??F) 02/03/2025 10:54 AM E DT Respiratory Rate 20 02/03/2025 10:54 AM EDT Oxygen Saturation 99% 02/03/2025 10:54 AM EDT Inhaled Oxygen Concentration - - Weight 84.1 kg (185 lb 6.4 oz) 02/03/2025 10:54 AM EDT Height 165.1 cm (5' 5 ) 02/03/2025 10:54 AM EDT Body Mass Index 30.85 02/03/2025 10:54 AM EDT Plan of Treatment Upcoming Encounters Date Type Department Care Team (Late st Contact Info) Description 05/10/2025 3:45 PM EDT Office Visit [facility] [address] [place] [address] Name, MD Charbel [address] [place] [address] Health Maintenance Due Date Last Done Comments CT Colonography 1970 FIT DNA/Cologuard 1970 FIT 1970 FOBT 1970 HIV Screening 1970 Sigmoidoscopy 1969 Diabetes: Foot Exam 1979 Pap Smear 1990 Cervical Cancer Screening 1999 HPV/Cotest 1999 COVID-19 Vaccine ( season) 2024 09/24/2023, 08/26/2022, 08/26/2022, Additional history exists Eye Exam 03/11/2025 03/11/2024 Depression Screening 03/22/2025 03/22/2024, 03/22/20 24 Lipid Panel 05/17/2025 05/17/2024, 02/16, 06/26/2021 Alcohol/Substance Use Screening 05/26/2025 05/26/2024 Mammogram 06/17/2025 06/17/2024 Diabetes: Hemoglobin A1C 08/06/2025 025, 08/17/2024, 03/22/2024, Additional history exists SDOH Screening 09/16/2025 09/16/2024 Tobacco Screening 02/03/2026 02/03/2025 DTaP/Tdap/Td Vaccines (2 - Td or Tdap) [...] Pressure 156/98(2024 12:25 PM EDT) No Мария Gudino PharmD Patient will adhere to medication regimen General No Мария Gudino, PharmD LDL Calc < 70 Result Component No Мария Gudino PharmD Note: Per ADA for primary prevention of ASCVD Procedures Procedure Name Priority Date/Time Associated Diagnosis Comments POCT GLYCATED HEMOGLOBIN, TOTAL Routine 02/03/2025 11:11 AM EDT Type 2 diabetes mellitus with chronic kidney disease, with long-term current use of insulin, unspecified CKD stage (CMS/HCC) POCT GLUCOSE Routine 02/03/2025 11:11 AM EDT Type 2 diabetes mellitus with chronic kidney disease, with long-term current use of insulin, unspecified CKD stage (CMS/HCC) HEPATITIS PANEL, GENERAL Routine 07/20/2024 8:40 AM EDT HM MAMMOGRAPHY Routine 06/17/2024 LIPID PANEL, STANDARD Routine 05/17/2024 10:55 AM EDT DIABETES EYE EXAM Routine 03/11/2024 COLONOSCOPY Routine 12/15/2019 from Last 3 Months or Most Recently Relevant to Health Maintenance Results * POCT HGB A1C (02/03/2025 11:11 AM EDT) Pathologist [facility] Hemoglobin A1C 6.0 4.0 - 6.0 % QC Media Lot # [id number] Lot# Expiration Date [id number] Blood 02/03/2025 11:1 1 AM EDT us Charbel Lyons MD POINT OF CARE TEST ENTER/EDIT OR DERABLES Final Result * POCT Glucose (02/03/2025 11:11 AM EDT) Pathologist [facility] Glucose Blood, POC 194 60 - 200 mg/dL QC Media Lot # [id number] Lot# Expiration Date [id number] Blood Capillary blood specimen / Unknown 02/03/2025 11:11 AM EDT us Charbel Lyons MD POINT OF CARE TEST ENTER/EDIT OR DERABLES Final Result * Hepatitis Panel, General (07/20/2024 8:40 AM EDT) Pathologist [facility] Hepatitis A IgM Nonreactive Nonreactive [facility] Comment:IgM antibodies to [place] V not detected; does not exclude earlyacute or recovered HAV infection. ~Hepatitis B Surface Antibody REACTIVE Nonreactive [facility] Comment:REACTIVE: > 11.99 mI U/mL Hepatitis B Core Antibody Nonreactive Nonreactive [facility] Hepatitis C Antibody Nonreactive Nonreactive [facility] Comment:Antibodies to HCV no t detected; does not exclude early acuteHCV infection. Hepatitis B Surface Ag Negative Negative [facility] 07/20/2024 8:40 AM EDT 07/20/2024 8:40 AM EDT us Generic External Data Provider LAB BLOOD ORDERAB LES Final Result Performing Organization Address City/[facility]/ZIP Co de Phone Number [facility] [address] [place] [phone] * Mammography (06/17/2024) Mammogram BIRADS 1 Normal, Abnormal, BIRADS 1 , BIRADS 2 Anatomical Region Laterality Modality Other Charbel Lyons MD HEALTH MAINTENANCE Final Result * Lipid Panel, Standard (05/17/2024 10:55 AM EDT) Triglycerides 112 <150 mg/dL [facility] Comment:Desirable Triglyceri de: less than 150 mg/dLBorderline High Triglyceride 150-199 mg/dLHigh Triglyceride: 200-499 mg/dLVery High Triglyceride: greater than or equal to 5OO mg/dL Cholesterol 152 <200 mg/dL [facility] Comment:Desirable Cholestero l: less than 200 mg/dLBorderline High Cholesterol: 200-239 mg/dLHigh Cholesterol: greater than 239 mg/dL LDL Cholesterol Calculated 80 <100 mg/dL [facility] Comment:Desirable LDL: less than 100 mg/dLNear Optimal/Above Optimal LDL: 110- 129 mg/dLBorderline High LDL: 130-159 mg/dLHigh LDL: 160-189 mg/dLVery High LDL: greater than or equal to 190 mg/dL HDL Cholesterol 50 >40 mg/dL [facility] Comment:Desirable HDL: great er than 40 mg/dL Note: This HDL assay may give artificially low results in patients with liver disease. 05/17/2024 10:5 5 AM EDT 05/17/2024 11:39 AM EDT us Charbel Lyons MD LAB BLOOD ORDERABLES Final Resul t Performing Organization Address City/[facility]/ZIP Co de Phone Number [facility] [address] [place] [phone] * Diabetes Eye Exam (03/11/2024) Eye Exam Normal Normal us Charbel Name HEALTH MAINTENANCE Final Result * Colonoscopy (12/15/2019) Colonoscopy Normal Normal 12/15/[address] - 12/15/2019 1:24 PM EST Colonoscopy performed at [facility] ( see scanned report) recommended 10 year follow up Historical Provider HEALTH MAINTENANCE Final Result from Last 3 Months or Most Recently Relevant to Health Maintenance Insurance [address] [place] [address] C3 HSN PARTIAL Care Teams Activities Coordinator Relationship Specialty Start Date End Date Name, MD Charbel [address] [place] [address] PCP - General Family Medicine 02/26/16 Мария Gudino, FarihaD [address] [place] [phone] Pharmacist Internal Medicine 04/29/23
--- OUTSIDE RECORDS SUMMARY | 2025-03-01 16:40 | XMS_ITS | Encounter Summary ---
Author Organization [employer] Address [address] [place] [address] 7 [place] [address] Care Team Providers Care Driver Starting Gate Name Role Phone Name, Charbel CARRILLO Primary Care Provider [phone] Мария Gudino PharmD Unavailable [phone] Reason for Visit * Reason Comments Med Refill Encounter Details Date Type Department Care Team ([facility] st Contact Info) Description 09/16/2023 Refill [facility] [address] [place], [place] [phone] Name, MD Charbel [address] [place] [address] Social History Tobacco Use Types Packs/Day Years [...] Description 05/10/2025 3:45 PM EDT Office Visit [facility] [address] [place] [phone] NameCharbel MD [address] [place] [address] documented as of this encounter Goals Goal Patient Goal Type Associated Problems Recent Progress Patient-Stated? Author Record your blood pressure once per day Blood Pressure No Puia, Мария, PharmD Blood Pressure < 140/90 Blood Pressure 156/98( 025 12:25 PM EDT) No PuiaRichardМария, PharmD documented as of this encounter Visit Diagnoses Not on filedocumented in this encounter Additional Health Concerns Assessment Noted Time PHQ-9 Depression Total Score: 0 10/23/20 22 3:25 PM EST documented as of this encounter Care Teams Driver Starting Gate Relationship Specialty Start Date End Date Name, MD Charbel [address] [place] [address] PCP - General Family Medicine 02/26/16 YingiaМария, PharmD [address] [place] [address] Pharmacist Internal Medicine 04/29/23 documented as of this encounter
--- OUTSIDE RECORDS SUMMARY | 2025-03-01 16:40 | XMS_ITS | Encounter Summary ---
Author Organization [employer] Address [address] [place] [address] Care Team Providers Care Croze Cutter Helper Name Role Phone Name, Charbel CARRILLO Primary Care Provider [phone] Мария Gudino PharmD Unavailable [phone] Encounter Details Date Type Department Care Team (Late st Contact Info) Description 05/25/2024 Orders Only [facility] [address] [place] [address] Provider, MD Fant[place] Social History Tobacco Use Types Packs/Day Years [...] Description 05/10/2025 3:45 PM EDT Office Visit [facility] [address] [place] [address] Name, MD Charbel [address] [place] [address] documented as of this encounter Goals Goal [...] documented as of this encounter Care Teams Croze Cutter Helper Relationship Specialty Start Date End Date Name, MD Charbel [address] [place] [address] PCP - General Family Medicine 02/26/16 Мария Gudino PharmD [address] [place] [address] Pharmacist Internal Medicine 04/29/23 documented as of this encounter
--- OUTSIDE RECORDS SUMMARY | 2025-03-01 16:40 | XMS_ITS | Encounter Summary ---
Author Organization [employer] Address [address] [place] [address] 7 [place] [address] Care Team Providers Care Patient Care Provider Name Role Phone Name, Charbel CARRILLO Primary Care Provider [phone] Мария Gudino PharmD Unavailable [phone] Reason for Visit * Reason Onset Date Comments Hospital Follow-up 09/15/2024 Encounter Details Date Type Department Care Team (Late st Contact Info) Description 09/15/2024 Telephone [facility] [address] [place], [place] [phone] Name, MD Charbel [address] [place] [address] Hospital Follow-up Social History Tobacco Use Types [...] from pt requesting a HDF appt. Hospital: [facility] Date of admission: 09/14/2024 Discharge date: 09/15/2024 Diagnosed: Visual changes , Bipolar disorder documented in this encounter Plan of Treatment Upcoming Encounters Date Type Department Care Team (Late st Contact Info) Description 05/10/2025 3:45 PM EDT Office Visit [facility] [address] [place] [address] Name, MD Charbel [address] [place] [address] documented as of this encounter Goals Goal Patient Goal Type Associated Problems Recent Progress Patient-Stated? Author Record your blood pressure once per day Blood Pressure No Мария Gudino, PharmD Blood Pressure < 140/90 Blood Pressure 156/98(2024 12:25 PM EDT) No Мария Gudino, PharmD Patient will adhere to medication regimen General No PuiaRichardМария, PharmD LDL Calc < 70 Result Component No Richard Gudinoyssa, PharmD Note: Per ADA for primary prevention of ASCVD documented as of this encounter Visit Diagnoses Not on filedocumented in this encounter Additional Health Concerns Assessment Noted Time PHQ-9 Depression Total Score: 0 03/22/20 24 1:45 PM EDT documented as of this encounter Care Teams Patient Care Provider Relationship Specialty Start Date End Date Name, MD Charbel [address] [place] [address] PCP - General Family Medicine 02/26/16 Мария Gudino PharmD [address] [place] [address] Pharmacist Internal Medicine 04/29/23 documented as of this encounter
--- OUTSIDE RECORDS SUMMARY | 2025-03-01 16:40 | XMS_ITS | Encounter Summary ---
Author Organization [employer] Address [address] [place] [address] 7 [place] [address] Care Team Providers Care Shop Clerk Name Role Phone Name, Charbel CARRILLO Primary Care Provider [phone] Мария Gudino PharmD Unavailable [phone] Reason for Visit * Reason Comments Med Refill Encounter Details Date Type Department Care Team ([facility] st Contact Info) Description 09/16/2023 Refill [facility] [address] [place], [place] [phone] Name, MD Charbel [address] [place] [address] Social History Tobacco Use Types Packs/Day Years [...] Description 05/10/2025 3:45 PM EDT Office Visit [facility] [address] [place] [address] NameCharbel MD [address] [place] [phone] documented as of this encounter Goals Goal [...] documented as of this encounter Care Teams Shop Clerk Relationship Specialty Start Date End Date Name, MD Charbel [address] [place] [address] PCP - General Family Medicine 02/26/16 YingiaМария, PharmD [address] [place] [address] Pharmacist Internal Medicine 04/29/23 documented as of this encounter
--- OUTSIDE RECORDS SUMMARY | 2025-03-01 16:40 | XMS_ITS | Encounter Summary ---
Author Organization [employer] Address [address] [place] [address] 7 [place] [address] Care Team Providers Care Clothing Supervisor Name Role Phone Name, Charbel CARRILLO Primary Care Provider [phone] Мария Gudino PharmD Unavailable [phone] Reason for Visit * Reason Onset Date Comments Prior Authorization 02/16/2025 Encounter Details Date Type Department Care Team (Late st Contact Info) Description 02/16/2025 Telephone [facility] MEDICINE [address] [place] [address] Machelle Yanes LPN Prior Authorization Social History Tobacco Use Types [...] encounter Miscellaneous Notes * Telephone Encounter - Kerry Maddox - 02/28/2025 10:40 AM EDT PA APPROVAL for [employer] received and scanned into media. * Telephone Encounter - Lulú Gomez [place] - 02/23/2025 12:55 PM EDT PA dianne Gore signed and faxed to [employer]. Confirmation received and sent to scan. If patient calls to check status on above, please advise them to contact [facility] at [phone]. * Telephone Encounter - Machelle Yanes LPN - 02/16/2025 10:22 AM EDT PA [facility]ianne Gore with [facility] completed and placed on providers desk for signature documented in this encounter Plan of Treatment Upcoming Encounters Date Type Department Care Team (Late st Contact Info) Description 05/10/2025 3:45 PM EDT Office Visit [facility] MEDICINE [address] [place] [address] Name, MD Charbel [address] [place] [address] documented as of this encounter Goals Goal [...] Time PHQ-9 Depression Total Score: 0 03/22/20 1:45 PM EDT documented as of this encounter Care Teams Clothing Supervisor Relationship Specialty Start Date End Date Name, MD Charbel [address] [place] [address] PCP - General Family Medicine 02/26/16 Puia, Мария, PharmD [address] [place] [address] Pharmacist Internal Medicine 04/29/23 documented as of this encounter
--- OUTSIDE RECORDS SUMMARY | 2025-03-01 16:40 | XMS_ITS | Encounter Summary ---
Author Organization [employer] Address [address] [place] [address] 7 [place] [address] Care Team Providers Care Social Professionals Name Role Phone Name, Charbel CARRILLO Primary Care Provider [phone] Мария Gudino PharmD Unavailable [phone] Reason for Visit * Reason Onset Date Comments Prior Authorization 01/06/2024 Encounter Details Date Type Department Care Team (Late st Contact Info) Description 01/06/2024 Telephone [facility] MEDICINE [address] [place], [place] [phone] Name, MD Charbel [address] [place] [address] Prior Authorization Social History Tobacco Use Types [...] 01/13/2024 10:48 AM EST Tc from [facility] calling in regards to the message below states needs PA so they can schedule a appt with the patient * Telephone Encounter - Lucio Edgar - 01/06/2024 10:44 AM EST Tc bernabe Lagos working with [facility] stating pt needs prior authorization for Ct Scan If any questions you can contact [facility] [phone] documented in this encounter Plan of Treatment Upcoming Encounters Date Type Department Care Team (Late st Contact Info) Description 05/10/2025 3:45 PM EDT Office Visit [facility] MEDICINE [address] [place] [address] Name, MD Charbel [address] [place] [address] documented as of this encounter Goals Goal [...] documented as of this encounter Care Teams Social Professionals Relationship Specialty Start Date End Date Name, MD Charbel [address] [place] [address] PCP - General Family Medicine 02/26/16 Мария Gudino PharmD [address] [place] [address] Pharmacist Internal Medicine 04/29/23 documented as of this encounter
--- OUTSIDE RECORDS SUMMARY | 2025-03-01 16:40 | XMS_ITS | Encounter Summary ---
Author Organization [employer] Address [address] [place] [address] 7 [place] [address] Care Team Providers Care Packing Line Operator Name Role Phone Name, Charbel CARRILLO Primary Care Provider [phone] Мария Gudino PharmD Unavailable [phone] Reason for Visit * Reason Onset Date Comments Appointment Request 01/13/2025 Encounter Details Date Type Department Care Team ([facility] st Contact Info) Description 01/13/2025 Telephone [facility] MEDICINE [address] [place], [place] [phone] Name, MD Charbel [address] [place] [address] Appointment Request Social History Tobacco Use Types [...] the past 12 months, has t he [employer], gas, oil or water [employer] threatened to shut off services in your [...] encounter Miscellaneous Notes * Telephone Encounter - Moshe Wilder - 01/13/2025 10:37 AM EST TC from pt requesting a visit with dr. Lyons because recently had surgery done on 11/29 for arm and pulmonary surgery on 12/30 . documented in this encounter Plan of Treatment Upcoming Encounters Date Type Department Care Team (Late st Contact Info) Description 05/10/2025 3:45 PM EDT Office Visit [facility] MEDICINE [address] [place] [address] Name, MD Charbel [address] [place] [address] documented as of this encounter Goals Goal [...] documented as of this encounter Care Teams Packing Line Operator Relationship Specialty Start Date End Date Name, MD Charbel [address] [place] [address] PCP - General Family Medicine 02/26/16 Мария Gudino PharmD [address] [place] [address] Pharmacist Internal Medicine 04/29/23 documented as of this encounter
--- OUTSIDE RECORDS SUMMARY | 2025-03-01 16:40 | XMS_ITS | Encounter Summary ---
Author Organization [employer] Address [address] [place] [address] 7 [place] [address] Care Team Providers Care Gasket Notcher Name Role Phone Name, Charbel CARRILLO Primary Care Provider [phone] Мария Gudino PharmD Unavailable [phone] Reason for Visit * Reason Onset Date Comments Appointment Request 09/22/2023 Encounter Details Date Type Department Care Team ([facility] st Contact Info) Description 09/22/2023 Telephone [facility] MEDICINE [address] [place], [place] [phone] Name, MD Charbel [address] [place], [place] [phone] Appointment Request Social History Tobacco Use Types [...] @ 2:15 pm (NOTES : Claim # [id number]- [facility]VA -09/05/23- Went to [facility] ED - Xray negative but pt. wants MRI ) Pt states she has same day appt with Her Orthopedic surgeon and is requesting to see if provider has anything earlier or for later time. Please contact pt at [phone] documented in this encounter Plan of Treatment Upcoming Encounters Date Type Department Care Team (Late st Contact Info) Description 05/10/2025 3:45 PM EDT Office Visit [facility] MEDICINE [address] [place] [address] Name, MD Charbel [address] [place] [address] documented as of this encounter Goals Goal Patient Goal Type Associated Problems Recent Progress Patient-Stated? Author Record your blood pressure once per day Blood Pressure No Мария Gudino, PharmD Blood Pressure < 140/90 Blood Pressure 156/98( 025 12:25 PM EDT) No Мария Gudino, PharmD documented as of this encounter Visit Diagnoses Not on filedocumented in this encounter Additional Health Concerns Assessment Noted Time PHQ-9 Depression Total Score: 0 10/23/20 22 3:25 PM EST documented as of this encounter Care Teams Gasket Notcher Relationship Specialty Start Date End Date Name, MD Charbel [address] [place] [address] PCP - General Family Medicine 02/26/16 Мария Gudino PharmD [address] [place] [address] Pharmacist Internal Medicine 04/29/23 documented as of this encounter
--- OUTSIDE RECORDS SUMMARY | 2025-03-01 16:40 | XMS_ITS | Encounter Summary ---
Author Organization [employer] Address [address] [place] [address] 7 [place] [address] Care Team Providers Care Supervisory It Specialist Name Role Phone Name, Charbel CARRILLO Primary Care Provider [phone] Мария Gudino PharmD Unavailable [phone] Reason for Visit * Reason Comments Med Refill Encounter Details Date Type Department Care Team (Late st Contact Info) Description 07/24/2024 Refill [facility] MEDICINE [address] [place] [address] Мария Gudino, PharmD [address] [place] [address] Essential hypertension; Type 2 diabetes mellitus with hyperglycemia, with long-term current use of insulin ([facility]) Social History Tobacco Use Types Packs/Day Years [...] Description 05/10/2025 3:45 PM EDT Office Visit [facility] MEDICINE [address] [place] [address] Name, MD Charbel [address] [place] [address] documented as of this encounter Goals Goal [...] hyperglycemia, with long-term current use of insulin ([facility]) documented in this encounter Additional Health Concerns Assessment Noted Time PHQ-9 Depression Total Score: 0 03/22/20 24 1:45 PM EDT documented as of this encounter Care Teams Supervisory It Specialist Relationship Specialty Start Date End Date Name, MD Charbel [address] [place] [address] PCP - General Family Medicine 02/26/16 Мария Gudino PharmD [address] [place] [address] Pharmacist Internal Medicine 04/29/23 documented as of this encounter
--- OUTSIDE RECORDS SUMMARY | 2025-03-01 16:40 | XMS_ITS | Encounter Summary ---
Author Organization [employer] Address [address] [place] [address] [address] [address] Care Team Providers Care Casino Cashier Manager Name Role Phone Name, Charbel CARRILLO Primary Care Provider [phone] Мария Gudino PharmD Unavailable [phone] Reason for Visit * Reason Onset Date Comments ER Follow-up 08/20/2023 Encounter Details Date Type Department Care Team (Late st Contact Info) Description 08/20/2023 Telephone [facility] MEDICINE [address] [place], [place] [phone] Name, MD Charbel [address] [place] [address] ER Follow-up Social History Tobacco Use Types [...] to LVM. * Telephone Encounter - Frannie Carternez - 08/20/2023 11:35 AM EDT Patient calling to report ED visit on 08/19/23 at [facility]. Seen for fall. Patient advised will forward to team nurse for follow up. documented in this encounter Plan of Treatment Upcoming Encounters Date Type Department Care Team (Late st Contact Info) Description 05/10/2025 3:45 PM EDT Office Visit [facility] MEDICINE [address] [place] [address] Name, MD Charbel [address] [place] [address] documented as of this encounter Goals Goal [...] documented as of this encounter Care Teams Casino Cashier Manager Relationship Specialty Start Date End Date NameCharbel MD [address] [place] [address] PCP - General Family Medicine 02/26/16 PuiaRichardМария, PharmD [address] [place] [address] Pharmacist Internal Medicine 04/29/23 documented as of this encounter
--- OUTSIDE RECORDS SUMMARY | 2025-03-01 16:40 | XMS_ITS | Clinical Summary ---
Author Organization [facility] Address [address] [place] [address] Care Team Providers Care Carpenter Bridge Name Role Phone Noemí Umana PA-C Primary Care Provider Source Comments PLEASE NOTE, if this patient [...] mcg/actuation inhalerIndication s:Mild persistent asthma without complication ([facility]) Inhale 1 Puff into the lungs 2 [...] Diagnosed Date H/O arthroscopic right knee surgery. [facility] Dr Maxwell. 04/17/15. 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 Hx of screening mammography 09/01/15 09/08/2015 Overview (09/08/2015): BILATERAL MAMMOGRAM SCREENING DONE AT [facility] BREAST & WELLNESS RESULTS WAS SENT TO MEDICAL RECORDS TO BE SCAN HTN (hypertension) 02/24/2015 Asthma ([facility]) 02/24/2015 Bipolar disorder ([facility]) Overview (02/24/2015): [facility] Fibromyalgia Right shoulder pain Overview (01/18/2016): Used to be seen for PM at [facility], got injections, not better, ref to [...] on 09 January 2016 14:38 Encounter info: [id number], [facility] MRI [facility], 01/08/2016 - 01/15/2016 * Final Report * Reason For Exam rt shoulder pain RCT;rt shoulder pain RCT RESULT: MRI Joint Ext Upper W/O Contrast Right [facility] VISIT NUMBER :[id number] Patient Name : Sade Izaguirre Date of : 1970 Date of Exam : 01/08/2016 Referring Physician : GINA MAXWELL [address], Attn: [place] [address] Exam : MR - SHOULDER (C-) CPT [id number] - RIGHT Room Description : [facility] 2 1.5 Technique : Ax PD [...] disc, cervical Overview (08/31/2015): MRI done at [place] 11.15.14 Hyperlipidemia Social History Tobacco Use Types [...] on file Insurance [employer] Care Teams Carpenter Bridge Relationship Specialty Start Date End Date Noemí Umana PA-C [address] [place] [address] PCP - General 01/12/19
--- OUTSIDE RECORDS SUMMARY | 2025-03-01 16:40 | XMS_ITS | Encounter Summary ---
Author Organization [employer] Address [address] [place] [address] 7 [place] [address] Care Team Providers Care Blueprinter Name Role Phone Name, Charbel CARRILLO Primary Care Provider [phone] Мария Gudino PharmD Unavailable Encounter Details Date Type Department Care Team ([facility] Contact Info) Description 04/21/2023 Abstract [facility] MEDICINE [address] [place], [place] [phone] Name, MD Charbel [address] [place] [address] Social History Tobacco Use Types Packs/Day Years [...] Encounters Date Type Department Care Team (Late Contact Info) Description 05/10/2025 3:45 PM EDT Office Visit [facility] MEDICINE [address] [place] [address] Name[place] [address] documented as of this encounter Visit Diagnoses Not on filedocumented in this encounter Additional Health Concerns Assessment Noted Time PHQ-9 Depression Total Score: 0 10/23/20 3:25 PM EST documented as of this encounter Care Teams Blueprinter Relationship Specialty Start Date End Date Name, MD Charbel [address] [place] [address] PCP - General Family Medicine 02/26/16 Мария Gudino, FarihaD [address] [place] [address] Pharmacist Internal Medicine 04/29/23 documented as of this encounter
--- OUTSIDE RECORDS SUMMARY | 2025-03-01 16:40 | XMS_ITS | Encounter Summary ---
Author Organization [employer] Address [address] [place] [address] 7 [place] [address] Care Team Providers Care Gravure Press Set Up Operator Name Role Phone Name, Charbel CARRILLO Primary Care Provider [phone] Мария Gudino PharmD Unavailable [phone] Reason for Visit * Reason Comments Med Refill Encounter Details Date Type Department Care Team ([facility] st Contact Info) Description 02/20/2024 Refill [facility] MEDICINE [address] [place], [place] [phone] Name, MD Charbel [address] [place] [address] Social History Tobacco Use Types Packs/Day Years [...] Description 05/10/2025 3:45 PM EDT Office Visit [facility] MEDICINE [address] [place] [address] NameCharbel MD [address] [place] [address] documented as of this encounter Goals Goal [...] documented as of this encounter Care Teams Gravure Press Set Up Operator Relationship Specialty Start Date End Date Name, MD Charbel [address] [place] [address] PCP - General Family Medicine 02/26/16 YingiaМария, PharmD [address] [place] [address] Pharmacist Internal Medicine 04/29/23 documented as of this encounter
--- OUTSIDE RECORDS SUMMARY | 2025-03-01 16:41 | XMS_ITS | Encounter Summary ---
Author Organization [employer] Address [address] [place] [address] 7 [place] [address] Care Team Providers Care Early Childhood Name Role Phone Name, Charbel CARRILLO Primary Care Provider [phone] Мария Gudino PharmD Unavailable [phone] Reason for Visit * Reason Comments Med Refill Encounter Details Date Type Department Care Team ([facility] Contact Info) Description 02/10/2023 Refill [facility] MEDICINE [address] [place], [place] [phone] Name, MD Charbel [address] [place] [address] Social History Tobacco Use Types Packs/Day Years [...] Upcoming Encounters Date Type Department Care Team ([facility] Contact Info) Description 05/10/2025 3:45 PM EDT Office Visit [facility] MEDICINE [address] [facility] [place] [address] Name, MD Charbel Nasreen [facility] [place] [address] documented as of this encounter Visit Diagnoses Not on filedocumented in this encounter Additional Health Concerns Assessment Noted Time PHQ-9 Depression Total Score: 0 10/23/20 22 3:25 PM EST documented as of this encounter Care Teams Early Childhood Relationship Specialty Start Date End Date Name, MD Charbel [address]reen [facility] [place] [address] PCP - General Family Medicine 02/26/16 Мария [place] [address] Pharmacist Internal Medicine 04/29/23 documented as of this encounter
--- OUTSIDE RECORDS SUMMARY | 2025-03-01 16:41 | XMS_ITS | Data Portability ---
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 Sutures removed Steri-Strips reapplied. May work on active range of motion over the next couple weeks as well as scar massage. She may begin occupational therapy in 2 weeks time to include passive range of motion and strengthening. Follow-up in 4 weeks time for recheck, sooner if required [email or web address] Not available 12/14/2024 11:43:56 Plan of Treatment Reminders Order Date Submit Date Provider Last Modified By Organization Details Last Modified Time Details Appointments None recorded. Lab None recorded. Referral occupationa l therapist referral - Diagnosis: S/P (R) carpal tunnel release, decompressi on of R cubital tunnel; date of surgery 11/29/24Cust om molded orthosis: noneTreatme nt: PROM, STRENGTHENI NG, SCAR MASSAGINGTo begin in 2 weeks 2024 025 [email or web address] Not available 14:16:07 Procedures None recorded. Surgeries carpal tunnel release (SURG) 2023 025 [email or web address] 15 [facility], [address] [place], [address], 01/14/202 5 11:50:41 Imaging XR, wrist, 2 view - 2V LT TMJ, F/U, RM 116 2023 024 [facility], [address], [address], [place], [address], 4 11:11:20 Medication Orders None recorded. Patient TargetsNo targets recorded. Patient InstructionsNo instructions recorded. 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 ral for Carpal tunnel syndrome of right wrist Diagnosis: S/P (R) carpal tunnel release, decompression of R cubital tunnel; date of surgery 11/29/24Custom molded orthosis: noneTreatment: PROM, STRENGTHENING, SCAR MASSAGINGTo begin in 2 weeks Referring Physician: Dylan Stanford, Orthopedic Surgery, Encounter Date: 12/14/2024 Results Created Date Observation Date Name Description Value Unit Range Abnormal Flag Note LastModifiedBy Organization Detail LastModifiedTime 10/08/20 24 10/08/2024 XR, wrist , 2 view http:/ [email or web address] ?Encry pted=s hAaTro YD8dLq bEUv6g %2BXZw aYqtaq 0bqfl% 2Fg9IQ a4ajBk vP9nXo QUaueC m3YtLR FvZlgJ JJ8mAn HZtai3 9l3535 AC0Kqa X6CUKO hKiQtr MwF INTERFACE [facility] [address], [place], [address], 10/08/2024 11:11:21 10/08/20 24 10/08/2024 XR, wrist , 2 view [email or web address]:/ [email or web address] ?Encry pted=s hAaTro YD8dLq bEUv6g %2BXZw aYqtaq 0bqfl% 2Fg9IQ a4ajBk vP9nXo QUaueC m3YtLR FvZlgJ JJ8mAn HZtai3 8w1506 AC0Kqa X6CUKO hKiQtr MwF INTERFACE [facility] [address], [place], [address], 10/08/2024 11:11:23 Result Notes None recorded. Problems Name Problem SNOMED Code Status Onset Date Resolution Date Notes Provider Name and Address Organization Details Recorded Time No complaints 708819585 Active Status : 'A'; Not Available [facility] 4 09:11:19 Carpal tunnel syndrome of right wrist 6068755234504 08 Active 2024 Dylan Stanfrod PA-C [address], [place], [address] , [facility] 5 11:43:11 Entrapment of right ulnar nerve at elbow 5376788320 Active 2024 Dylan Stanford PA-C [address], [place], [address] , [facility] 5 11:43:11 Impingemen t syndrome of right shoulder region 5384867534579 02 Active 2023 Gloria Sullivan PA-C [address], [place], [address] , [facility] 4 12:36:41 Neck pain 04302921 Active 2023 Gloria Sullivan PA-C [address], [place], [address] , [facility] 4 12:36:45 Problem Notes None recorded. Procedures Surgical History Date Name Laterality Status Provider Name and Address Organization Details Recorded Time 5 [facility] completed Clarence Lopez MD [address], [place], [address], [facility] 02/23/2025 13:08:04 4 [facility] completed Clarence Lopez MD [address], [place], [address], [facility] 10/09/2024 13:06:55 4 12044 Therapeutic Exercise (1:1) completed Rashid Chen, TAX SERVICES PROFESSIONAL [address], [place], [address], [facility] 08/06/2024 13:57:40 4 91426: Hot or Cold Pack completed Rashid Chen, TAX SERVICES PROFESSIONAL [address], [place], [address], [facility] 08/06/2024 13:57:40 4 Sports Knee 4&1 completed William Hutchins MD [address], [place], [address], [facility] 08/08/2024 15:45:17 4 10150 Therapeutic Exercise (1:1) completed Rashid Hatchos, TAX SERVICES PROFESSIONAL [address], [place], [address], [facility] 07/30/2024 13:44:11 4 33347: Hot or Cold Pack completed Rashid Hatchos, TAX SERVICES PROFESSIONAL [address], [place], [address], [facility] 07/30/2024 13:47:22 4 53718 Therapeutic Exercise (1:1) completed Rashid Gustavo, TAX SERVICES PROFESSIONAL [address], [place], [address], [facility] 07/22/2024 14:04:46 4 01703: Manual therapy completed Rashid Gustavo, TAX SERVICES PROFESSIONAL [address], [place], [address], [facility] 07/22/2024 14:04:46 4 53669 Therapeutic Exercise (1:1) completed Rashid Gustavo, TAX SERVICES PROFESSIONAL [address], [place], [address], [facility] 07/20/2024 13:40:04 4 11790: Manual therapy completed Rashid Chen, TAX SERVICES PROFESSIONAL [address], [place], [address], [facility] 07/20/2024 13:40:04 4 79187 Therapeutic Exercise (1:1) cancelled Kevin Cullen, PT [address], [place], [address], [facility] 07/15/2024 06:59:17 4 20826: Manual therapy cancelled Kevin Cullen, PT [address], [place], [address], [facility] 07/15/2024 06:59:17 4 08556 Therapeutic Exercise (1:1) completed Rashid Chen [employer]AX SERVICES PROFESSIONAL [address], [place], [address], [facility] 07/06/2024 14:33:33 4 53737: Manual therapy completed Rashid Chen TAX SERVICES PROFESSIONAL [address], [place], [address], [facility] 07/06/2024 14:33:38 4 34205 Therapeutic Exercise (1:1) completed Rashid Chen [employer]AX SERVICES PROFESSIONAL [address], [place], [address], [facility] 07/02/2024 14:31:30 4 74175: Manual therapy completed Rashid Chen PTA [address], [place], [address], [facility] 07/02/2024 14:31:47 4 54206 Therapeutic Exercise (1:1) completed Kevin Cullen, PT [address], [place], [address], [facility] 06/30/2024 15:07:16 38550: Low complexity PT Eval completed Kevin Cullen, PT [address], [place], [address], [facility] 06/30/2024 15:07:19 Imaging Results Imaging Date Name Status LastModified by Organiz ation Details LastModified Time 10/08/2024 XR, wrist, 2 view completed [facility] [address], [place], [address], 10/08/2024 11:11:21 10/08/2024 XR, wrist, 2 view completed INTER[facility] [address], [place], [address], 10/08/2024 11:11:23 Procedure Notes None recorded. Medical Equipment None Reported. Allergies Allergen ID Allergen Name Allergen Category Reaction Reaction Severity Criticality Documentation Date Start Date Code Code System Note Provider Name and Address Organization Details Recorded Time 78220 Product containin g penicilli n (product) medicatio n Not available Not available Not available 01/19/20242002 98623 8001 SNOMED Aller gyRea ction : 'NO SYMPT OM SPECI FIED' ; Not Available [facility] 4 10:54:25 72092 Naprosyn medicatio n Not available Not available Not available 01/19/20242014 2 RxNorm Aller gyRea ction : 'Naus ea/Vo mitin g/Lili rrhea '; Not Available [facility] 4 10:54:25 12517 latex environme nt,medica tion Not available Not available Not available 01/19/20242003 35226 91 RxNorm Aller gyRea ction : 'Skin React ion'; Not Available [facility] 4 10:54:25 40636 renan allergeni c extract food,medi cation Not available Not available Not available 01/19/20242021 46143 04 RxNorm Not Available [facility] 4 10:54:25 57954 Tylenol medicatio n Not available Not available Not available 01/19/20242021 05404 3 RxNorm Not Available [facility] 4 10:54:25 71377 ibuprofen medicatio n Not available Not available Not available 01/19/20242021 5640 RxNorm Not Available [facility] 4 10:54:25 47895 iodine medicatio n Not available Not available Not available 01/19/20242021 5933 RxNorm Not Available [facility] 4 10:54:25 09611 Shellfish (substanc e) food,medi cation Not available Not available Not available 01/19/20242021 99265 9006 SNOMED Not Available [facility] 4 10:54:25 Medications Name Sig Start Date Stop Date Status Note LastModified by Organization Details LastModified Time freestyle lite test strp 03/17 completed Not Available Not Available Not Available freestyle lite w/device kit 03/17 completed Not Available Not Available Not Available freestyle lancets misc 03/17 completed Not Available Not Available Not Available celecoxib 200 mg capsule TAKE 1 CAPSULE BY MOUTH EVERY MORNING active Not Available Not Available No t Available cyclobenzap rine 10 mg tablet TAKE 1 TABLET BY MOUTH THREE TIMES A DAY NEEDED FOR MUSCLE SPASMS FOR 10 DAYS 05/31 completed Not Available Not Available Not Available atorvastati n 40 mg tablet active Not Available Not Available Not Available hydralazine 10 mg tablet active Not Available Not Available Not Available BD Alcohol Swabs 04/30 completed Not Available Not Available Not Available pilocarpine 5 mg tablet TAKE 1 TABLET BY MOUTH THREE TIMES DAILY. active Not Available Not Available No t Available oxcarbazepi ne 150 mg tablet TAKE 1 TABLET BY MOUTH EVERY DAY IN THE MORNING active Not Available Not Available No t Available carvedilol 25 mg tablet TAKE 1 TABLET BY MOUTH WITH BREAKFAST AND EVENING MEAL active Not Available Not Available No t Available azelastine 0.05 % eye drops INSTILL 1 DROP IN BOTH EYES TWICE DAILY active Not Available Not Available No t Available prednisone 10 mg tablet 05/31 completed Not Available Not Available Not Available doxycycline hyclate 100 mg capsule TAKE 1 CAPSULE BY MOUTH TWICE DAILY FOR 10 DAYS active Not Available Not Available No t Available clindamycin HCl 300 mg capsule TAKE 1 CAPSULE BY MOUTH THREE TIMES DAILY FOR 10 DAYS active Not Available Not Available No t Available loperamide 2 mg capsule active Not Available Not Available Not Available azithromyci n 250 mg tablet active Not Available Not Available Not Available benzonatate 200 mg capsule TAKE 1 CAPSULE BY MOUTH TWICE DAILY NEEDED FOR COUGH FOR 30 DAYS active Not Available Not Available No t Available doxepin 25 mg capsule TAKE 1 CAPSULE BY MOUTH EVERY NIGHT active Not Available Not Available No t Available sucralfate 1 gram tablet active Not Available Not Available Not Available FreeStyle Lancets 28 gauge USE ONE LANCET THREE TIMES DAILY active Not Available Not Available No t Available ondansetron HCl 4 mg tablet active Not Available Not Available Not Available prednisone 20 mg tablet TAKE 2 TABLETS BY MOUTH DAILY X5 DAYS THEN 1 TABLET DAILY X5 DAYS active Not Available Not Available No t Available gabapentin 400 mg capsule active Not Available Not Available Not Available clonazepam 1 mg tablet TAKE 1 TABLET BY MOUTH THREE TIMES A DAY active Not Available Not Available No t Available oxcarbazepi ne 300 mg tablet TAKE 1 TABLET BY MOUTH EVERY DAY AT NIGHT active Not Available Not Available No t Available ciprofloxac in 500 mg tablet TAKE 1 TABLET BY MOUTH TWICE DAILY 04/30 completed Not Available Not Available Not Available peg-electro lyte solution 420 gram oral solution 03/17 completed Not Available Not Available Not Available omeprazole 40 mg capsule,del ayed release TAKE 1 CAPSULE BY MOUTH TWICE DAILY active Not Available Not Available No t Available minoxidil 2.5 mg tablet active Not Available Not Available Not Available aspirin 81 mg tablet,sebas yed release TAKE 1 TABLET BY MOUTH EVERY DAY active Not Available Not Available No t Available nystatin-tr iamcinolone 100,000 unit/gram-0 .1 % topical ointment APPLY TOPICALLY TO THE AFFECTED AREA TWICE DAILY active Not Available Not Available No t Available hydrocortis one 2.5 % topical cream with perineal applicator APPLY RECTALLY THREE TIMES DAILY active Not Available Not Available No t Available baclofen 10 mg tablet TAKE 1 TABLET BY MOUTH EVERY DAY FOR UP TO 20 DAYS NEEDED FOR MUSCLE SPASMS active Not Available Not Available No t Available amlodipine 10 mg tablet TAKE 1 TABLET BY MOUTH DAILY active Not Available Not Available No t Available pantoprazol e 40 mg tablet,sebas yed release active Not Available Not Available Not Available oseltamivir 75 mg capsule TAKE 1 CAPSULE BY MOUTH TWICE DAILY FOR 5 DAYS 04/30 completed Not Available Not Available Not Available pseudoephed rine-guaife nesin ER 80-700 mg tablet,exte nded release DO NOT DRIVE WHILE ON THIS MEDICATIO N, 836.0 04/30 completed Statu s: 'Curr ent'; Not Available Not Available Not Available lidocaine 5 % topical patch APPLY 1 PATCH EVERY MORNING REMOVE AND DISCARD PATCH WITHIN 12 HOURS DIRECTED BY LINDA Taveras active Not Available Not Available No t Available fluocinolon e 0.01 % topical body oil active Not Available Not Available Not Available docusate sodium 100 mg capsule TAKE 1 CAPSULE BY MOUTH 2 TIMES DAILY NEEDED FOR CONSTIPAT ION active Not Available Not Available No t Available diclofenac sodium 75 mg tablet,sebas yed release TAKE 1 TABLET BY MOUTH TWICE DAILY active Not Available Not Available No t Available montelukast 10 mg tablet TAKE 1 TABLET BY MOUTH DAILY active Not Available Not Available No t Available codeine 10 mg-guaifene sin 100 mg/5 mL oral liquid TAKE 10ML BY MOUTH EVERY 6 HOURS NEEDED FOR COUGH active Not Available Not Available No t Available bisacodyl 5 mg tablet,sebas yed release TAKE 3 TABLETS BY MOUTH EVERY DAY active Not Available Not Available No t Available mometasone 0.1 % topical ointment APPLY TOPICALLY TO THE AFFECTED AREA IN THE MORNING active Not Available Not Available No t Available furosemide 20 mg tablet TAKE 1 TABLET BY MOUTH EVERY MORNING active Not Available Not Available No t Available fluocinolon e 0.01 % topical solution APPLY TOPICALLY TO THE AFFECTED AREA TWICE DAILY active Not Available Not Available No t Available levalbutero l 1.25 mg/3 mL solution for nebulizatio n active Not Available Not Available Not Available hydroxychlo roquine 200 mg tablet TAKE 1 TABLET BY MOUTH TWICE DAILY active Not Available Not Available No t Available epinephrine 0.3 mg/0.3 mL injection, auto-inject or INJECT 0.3MG IN THE MUSCLE EVERY 10 MINUTES NEEDED FOR ANAPHYLAX IS active Not Available Not Available No t Available fluocinonid e 0.05 % topical solution APPLY TOPICALLY TO THE AFFECTED AREA TWICE DAILY 03/17 completed Not Available Not Available Not Available levofloxaci n 500 mg tablet TAKE 1 TABLET BY MOUTH DAILY FOR 8 DAYS active Not Available Not Available No t Available zolpidem 10 mg tablet TAKE 1 TABLET BY MOUTH EVERYDAY AT BEDTIME active Not Available Not Available No t Available fluticasone propionate 50 mcg/actuati on nasal spray,suspe nsion 2 SPRAYS IN EACH NOSTRIL ONCE A DAY active Not Available Not Available No t Available loratadine 10 mg tablet TAKE 1 TABLET BY MOUTH DAILY active Not Available Not Available No t Available oxycodone 5 mg tablet TAKE 1 TABLET BY MOUTH EVERY 4 TO 6 HOURS FOR 5 DAYS NEEDED FOR POST OPERATIVE PAIN active Not Available Not Available No t Available valsartan 160 mg-hydrochl orothiazide 25 mg tablet 05/31 completed Not Available Not Available Not Available insulin lispro (U-100) 100 unit/mL subcutaneou s pen ADMINISTE R 3 TO 13 UNITS UNDER THE SKIN THREE TIMES DAILY BEFORE MEALS DIRECTED PER SLIDING SCALE active Not Available Not Available No t Available azithromyci n 500 mg tablet TAKE 1 TABLET BY MOUTH DAILY FOR 5 DAYS 03/17 completed Not Available Not Available Not Available cyclobenzap rine 5 mg tablet TAKE 1 TO 2 TABLETS BY MOUTH 3 TIMES A DAY NEEDED FOR MUSCLE SPASM 05/31 completed Not Available Not Available Not Available valsartan 320 mg-hydrochl orothiazide 25 mg tablet TAKE 1 TABLET BY MOUTH DAILY active Not Available Not Available No t Available Xopenex HFA 45 mcg/actuati on aerosol inhaler INHALE 2 PUFFS BY MOUTH EVERY 6 HOURS NEEDED FOR WHEEZING active Not Available Not Available No t Available FreeStyle Lite Strips USE DIRECTED FOUR TIMES DAILY active Not Available Not Available No t Available Lantus Solostar U-100 Insulin 100 unit/mL (3 mL) subcutaneou s pen active Not Available Not Available Not Available FreeStyle [place] Lite kit TEST BLOOD SUGAR THREE TIMES DAILY active Not Available Not Available No t Available oxycodone 10 mg tablet active Not Available Not Available Not Available diclofenac 1 % topical gel APPLY 2 GRAMS TOPICALLY TO AFFECTED AREA TWICE DAILY active Not Available Not Available No t Available melatonin 5 mg tablet TAKE 1 TABLET BY MOUTH EVERY EVENING 1-2 HOURS BEFORE BEDTIME active Not Available Not Available No t Available oxycodone HCl-oxycodo ne-ASA as directed 1 TABLETS EVERY 4-[address] WHILE TAKING THIS MEDICATIO N 01/09 completed Statu s: 'Disc ontin ued'; Not Available Not Available Not Available blood pressure test kit-large cuff USE TO CHECK BLOOD PRESSURE ONCE DAILY 03/17 completed Not Available Not Available Not Available biotin 5 mg tablet TAKE 1 TABLET BY MOUTH EVERY DAY active Not Available Not Available No t Available Allergy Relief (fexofenadi ne) 180 mg tablet TAKE 1 TABLET BY MOUTH EVERY DAY active Not Available Not Available No t Available roflumilast 500 mcg tablet TAKE 1 TABLET BY MOUTH DAILY active Not Available Not Available No t Available Artificial Tears ([id number] omell-glyce rin) 1 %-0.2 %-0.2 % eye drops INSTILL 1 DROP INTO EVERY 4 TO 6 HOURS NEEDED FOR DRY EYE active Not Available Not Available No t Available lidocaine 5 % topical ointment active Not Available Not Available Not Available Stimulant Laxative Plus 8.6 mg-50 mg tablet TAKE 2 TABLETS BY MOUTH DAILY active Not Available Not Available No t Available Jardiance 25 mg tablet TAKE 1 TABLET BY MOUTH EVERY DAY active Not Available Not Available No t Available Trulicity 1.5 mg/0.5 mL subcutaneou s pen injector ADMINISTE R 1.5 MG UNDER THE SKIN EVERY 03/17 completed Not Available Not Available Not Available Incruse Ellipta 62.5 mcg/actuati on powder for inhalation INHALE 1 PUFF BY MOUTH DAILY active Not Available Not Available No t Available Breo Ellipta 200 mcg-25 mcg/dose powder for inhalation INHALE 1 PUFF BY MOUTH DAILY active Not Available Not Available No t Available naloxone 4 mg/actuatio n nasal spray active Not Available Not Available Not Available Xolair 75 mg/0.5 mL subcutaneou s syringe active Not Available Not Available No t Available Trulicity 3 mg/0.5 mL subcutaneou s pen injector ADMINISTE R 3 MG UNDER THE SKIN EVERY WEEK. ROTATE INJECTION SITES 03/17 completed Not Available Not Available Not Available Trulicity 4.5 mg/0.5 mL subcutaneou s pen injector INJECT ONE PEN (= 4.5MG) SUBCUTANE OUSLY ONCE A WEEK DIRECTED active Not Available Not Available No t Available Xolair 300 mg/2 mL subcutaneou s syringe active Not Available Not Available No t Available Vitals Date Recorded Body height Body mass index (BMI) Body weight Provider Name and Address Organization Details Last Updated DateTime 09/27/2024 165.1 cm 28.3 kg/m2 97214.7 g MALINI [facility] 09/27/2024 13:06:37 Date Recorded Body height Body mass index (BMI) Body weight Provider Name and Address Organization Details Last Updated DateTime 10/08/2024 165.1 cm 28.3 kg/m2 38973.7 g MALINI COLEMAN [facility] 10/08/2024 10:38:46 Date Recorded Body height Body mass index (BMI) Body weight Provider Name and Address Organization Details Last Updated DateTime 12/14/2024 165.1 cm 28.3 kg/m2 78602.7 g iDpti bennett [facility] 12/14/2024 14:10:24 Date Recorded Body height Body mass index (BMI) Body weight Provider Name and Address Organization Details Last Updated DateTime 01/12/2025 165.1 cm 28.3 kg/m2 70969.7 g MALINI COLEMAN [facility] 01/12/2025 14:46:19 Date Recorded Body height Body mass index (BMI) Body weight Provider Name and Address Organization Details Last Updated DateTime 02/23/2025 165.1 cm 28.3 kg/m2 15531.7 g MALINI COLEMAN [facility] 02/23/2025 11:55:02 Social History Question Answer Notes LastModified by Organizat ion Details LastModified Time Tobacco Smoking Status Never Smoker ORESTES padilla [facility] 04/29/2024 16:49:14 What Is Your Level Of Alcohol Consumption? None Information not available 04/29/2024 Which Of Your Hands Is Dominant? Right [email or web address] Information not available 04/01/2024 What Is Your Relationship Status? Information not available 04/29/2024 Do You Use Any Illicit Or Recreational Drugs? No Information not available 04/29/2024 Do You Or Have You Ever Used Any Other Forms Of Tobacco Or Nicotine? No Information not available 04/29/2024 Sex: Unknown Functional Status None recorded. Mental Status None recorded. Family History Nothing Reported. Medical History Condition Response Allergies/Hayfever N Coronary Artery Disease N Anxiety/Depression Y Breathing or lung disorders Y Emphysema N Nerve Disorders N Thyroid Problems N COPD Y Pacemaker N Anemia Y Kidney/Bladder Problems N Vascular Disease N Heart Trouble N Heart Attack (MD) N Gastrointestinal Disease Y Cholesterol Y Diabetes Y Autoimmune disease N Bleeding Disorder N Orthotics N Arthritis Y Seizures/Epilepsy N Blood Clot N AIDS/HIV N Congestive Heart Failure (CHF) N Acid Reflux (GERD) Y Cancer N Stroke N Asthma N Circulation Problems N Peripheral Vascular Disease N Sleep Apnea Y Hepatitis N Heart Disease N Rheumatoid Arthritis N Arrhythmia N Pulmonary Embolism N Headaches Y Fibromyalgia Y Hypertension Y Osteoporosis N Gynecological HistoryNo gynecological history recorded. Obstetrics History GPAL:G 0 P 0 0 0 0 Past Encounters Encounter ID Performer Location Encounter Start Date Encounter Closed Date Diagnosis/Indication Diagnosis SNOMED-CT Code Diagnosis ICD10 Code Diagnosis Note [id number] [facility] [address] [place] [address] 03/11/2024 14:23:48 03/25/2024 12:18:00 Pain of left knee region 7636970753 75976 M25.562 Contusion of left knee 0865243523 7102669 S80.02XD [id number] [facility] [address] [place] [address] 03/17/2024 12:59:12 03/30/2024 10:59:28 Pain of right knee joint 3803903578 10996 M25.561 Osteoarthr itis of right knee joint 4680042135 88223 M17.11 [id number] MD Yudi Shahid [address] [place] [address] 03/30/2024 14:57:25 04/09/2024 12:11:46 Pain of right knee joint 3687063751 31082 M25.734 [id number] BERYL Navarro [address] [place] [address] 04/01/2024 09:55:09 04/15/2024 09:23:33 Pain of right shoulder joint [id number] M25.511 Impingemen t syndrome of right shoulder region [id number] 81064 M75.41 Neck pain [id number] M54.2 [id number] Abiodun Robles MD [facility] [address] [place] [address] 04/30/2024 10:47:39 05/21/2024 15:38:34 Impingement syndrome of right shoulder region [id number] 45408 M75.41 [id number] Gloria Sullivan PA-C [facility] [address] [place] [address] 05/31/2024 13:58:05 06/15/2024 16:02:00 Impingement syndrome of right shoulder region [id number] 58603 M75.41 [id number] Clarence Lopez MD [facility] [address] [place] [address] 06/21/2024 10:45:36 07/16/2024 08:12:46 Ulnar nerve entrapment at elbow 582130556 G56.21 Carpal july omar syndrome of right wrist [id number] 36166 G56.01 [id number] Kevin Cullen, PT [facility] [address] [place] [address] 06/30/2024 13:50:17 06/30/2024 15:21:35 Tendinitis of right shoulder [id number] 785603 M75.91 [id number] Gloria Sullivan PA-C [facility] [address] [place] [address] 07/01/2024 13:48:28 07/21/2024 10:15:42 Postoperative care 696962326 Z48.89 [id number] Kevin Cullen, PT [facility] [address] [place] [address] 07/02/2024 13:46:11 07/02/2024 14:33:13 Tendinitis of right shoulder 0179719908 796135 M75.91 [id number] Kevin Cullen, PT [facility] [address] [place] [address] 07/06/2024 13:38:15 07/06/2024 17:20:16 Tendinitis of right shoulder [id number] 633041 M75.91 [id number] Kevin Florek, PT [facility] [address] [place] [address] 07/20/2024 13:36:29 07/20/2024 14:54:17 Tendinitis of right shoulder [id number] 534056 M75.91 [id number] Kevin Cullen, PT [facility] [address] [place] [address] 07/22/2024 13:53:19 07/22/2024 15:05:38 Tendinitis of right shoulder 6034336794 702104 M75.91 [id number] Kevin Cullen, PT [facility] [address] [place] [address] 07/30/2024 12:54:12 07/30/2024 15:13:09 Tendinitis of right shoulder 4932147422 973408 M75.91 [id number] MD [facility] [address] [place] [address] 08/02/2024 13:45:51 08/24/2024 08:18:51 Pain of right knee joint 0857222774 93375 M25.508 [id number] Kevin Cullen, PT [facility] [address] [place] [address] 08/06/2024 13:48:35 08/06/2024 14:48:41 Tendinitis of right shoulder [id number] 370782 M75.91 [id number] MD [facility] [address] [place] [address] 09/27/2024 12:57:16 10/26/2024 11:57:59 Entrapment of right ulnar nerve at elbow 9219852497 G56.21 Carpal july omar syndrome of right wrist 1073109403 44897 G56.01 [id number] MD [facility] [address] [place] [address] 10/08/2024 10:29:26 11/08/2024 10:20:09 Pain of left wrist 8205043425 26010 M25.532 Arthritis of first carpometacarpal joint of left hand 4447787390 135446 M18.12 [id number] Dylan Stanford PA-C [facility] - [facility] [address] [place] [address] 12/14/2024 14:00:06 01/05/2025 14:16:07 Entrapment of right ulnar nerve at elbow 7855549060 G56.21 Carpal july omar syndrome of right wrist 2695069543 49878 G56.01 [id number] MD MIKE Gaxiola [facility] [address] [place] [address] 01/12/2025 14:37:44 01/27/2025 17:55:31 Entrapment of left ulnar nerve at elbow 2715194012 G56.22 Carpal july omar syndrome of left wrist 2801920736 67269 G56.02 [id number] MD MIKE Gaxiola [facility] [facility] [address] [place] [address] 02/23/2025 11:37:23 02/23/2025 13:08:33 Arthritis of first carpometacarpal joint of left hand 3685489683 885682 M18.12 Health Concerns Section Related Observation LastModified by Organization Detai ls LastModified Time None Recorded Concern Status LastModified by Organization Details LastModified Time None Recorded Advance Directives Directive None Recorded Payers Encounter Date Sequence Insurance Name Policy Number Policy Cifuentes Covered Member ID Cifuentes Member ID Guarantor Name 09/27/2024 1 [place] [facility] Sade Izaguirre [id number] Sade Izaguirre 10/08/2024 1 [place] [facility] Sade Izaguirre [id number] Sade Izaguirre 12/14/2024 1 [place] [facility] Sade Izaguirre [id number] Sade Izaguirre 01/12/2025 1 [place] [facility] Sade Izaguirre [id number] Sade Izaguirre 02/23/2025 1 [place] [facility] Sade Izaguirre [id number] Sade Izaguirre Notes Date Note Type Note Provider Name and Address Organization Details Recorded Time 09/27/2024 text/html Diagnosis: Right carpal and cubital tunnel syndromeEMG findings consistent with right cubital tunnel syndromeThe patient returns at her request. She is not ready to discuss surgical intervention for the numbness and tingling in her right hand.Past family, medical, social history and review of systems has been reviewed, updated and is located in the patient? s chart.Examination: Healthy appearing patient in no apparent distress. Alert and oriented.HEENT: Normocephalic and atraumatic.Heart: Regular rate and rhythm.Lungs: Clear to auscultation bilaterally.Abdomen: Soft and nontender.Neurovascula r exam: Cubital tunnel compression testing is positive the right. Carpal tunnel compression testing is positive on the right.Extremities: She has symmetric range of motion of her bilateral elbows, forearms, wrists and digits. Provocative testing of elbows and wrists reveal no instability. No atrophy in either upper extremity. Brisk capillary refill in all digitsPlan: The patient would like to proceed with decompression of her right cubital tunnel understanding that she may require an anterior transposition and a right carpal tunnel release. We discussed the nature of the surgery is potential risks including infection, injury to blood vessels, tendons, nerves, incomplete relief of her numbness, palmar tenderness. All her questions are answered. She has consented to the procedure. Clarence Lopez MD [address] [place] [address] [address], [place], [address], [facility] 09/27/2024 16:30:03 10/08/2024 text/html DIAGNOSIS: Left 1st CMC arthritis status post corticosteroid injection. Right cubital and carpal tunnel syndrome HPI: The patient returns in followup today. The patient describes approximately many months relief with their last injection. Pain has returned and it is sharp and severe. PFMSH and ROS has been reviewed, updated, and is located in the patient's chart. PHYSICAL EXAMINATION: On exam, the patient is in no apparent distress, and is alert and oriented. The patient has symmetric range of motion of bilateral wrists and digits. Provocative testing of the right wrist reveals no instability. Provocative testing of the left wrist reveals a positive first CMC grind and compression test The patient has no atrophy of either upper extremity. X-rays ordered, obtained, and reviewed today at [facility]: PA and lateral left TM joint revealed joint space narrowing and sclerosis The patient and I discussed the situation at length. Options include a repeat injection or surgical intervention. We discussed the nature of the surgery and its potential risks including infection, injury to blood vessels, tendons, nerves, failure of the procedure and stiffness of the thumb. The patient would like to proceed with a repeat injection. After sterile prep of the area, the soft tissue overlying the left 1st CMC joint was infiltrated with 2cc of 1% plain lidocaine. After five minutes and sterile prep of the area, the and left 1st CMC joint was injected with 6 mg Celestone and 1 cc of 1% plain lidocaine. Tolerated this well. The patient will follow up with me by phone in a month's time, sooner if there are any concerns. Electronically signed: Clarence Lopez M.D. Clarence Lopez MD [address], [place], [address], [facility] 10/09/2024 13:07:51 12/14/2024 text/html I am seeing the patient today under the supervision of Dr. Mary who was available but who did not see the patient. Surgeon: Dr. LopezProcedure: Right carpal tunnel release and right ulnar nerve decompressionDate of procedure: November 29, 2024 HPI: 54-year-old female returns today in follow-up status post right carpal tunnel release and right ulnar nerve decompression on November 29, 2024. She reports some soreness medially about her right elbow. No complaints of fevers chills or drainage reported. Dylan Stanford PA-C [address], [place], [address], [facility] 12/14/2024 14:29:59 01/12/2025 text/html Diagnosis: Statu s post decompression right cubital tunnel and right carpal tunnel The patient returns at our request. She reports that she is seeing some improvement in her situation. Past family, medical, social history and review of systems has been reviewed, updated and is located in the patient? s chart. Examination: Healthy appearing patient in no apparent distress. Alert and oriented. She has symmetric range of motion of her bilateral elbows, forearms, wrist and digits. Provocative testing of elbows and wrist reveals no instability. No atrophy in either upper extremity. Brisk capillary refill in all digits Plan: The patient will continue to work on range of motion and strengthening. With time I expect more function from her nerves. She will follow-up as directed. Clarence Lopez MD [address] [facility] [address], [place], [address], [facility] 01/15/2025 15:00:08 02/23/2025 text/html DIAGNOSIS: Left 1st CMC arthritis status post corticosteroid injection.Status post decompression right cubital and carpal tunnels HPI: The patient returns in followup today. The patient describes approximately several months relief with their last injection. Pain has returned and it is sharp and severe. PFMSH and ROS has been reviewed, updated, and is located in the patient's chart. PHYSICAL EXAMINATION: On exam, the patient is in no apparent distress, and is alert and oriented. The patient has symmetric range of motion of bilateral wrists and digits. Provocative testing of the right wrist reveals no instability. Provocative testing of the left wrist [reveals a markedly positive first CMC grind and compression test. The patient has no atrophy of either upper extremity. The patient and I discussed the situation at length. Options include a repeat injection or surgical intervention. We discussed the nature of the surgery and its potential risks including infection, injury to blood vessels, tendons, nerves, failure of the procedure and stiffness of the thumb. The patient would like to proceed with a repeat injection. After sterile prep of the area, the soft tissue overlying the left 1st CMC joint was infiltrated with 2cc of 1% plain lidocaine. After five minutes and sterile prep of the area, the left 1st CMC joint was injected with 6 mg Celestone and 1cc of 1% plain lidocaine. Tolerated this well. The patient will follow up with me by phone in a month's time, sooner if there are any concerns. Electronically signed: Clarence Lopez M.D. Clarence Lopez MD [address], [place], [address], [facility] 02/23/2025 13:08:31 OBGyn Episode No OBEpisode recorded.
== END 2025-03-01 14:06 | disposition home or self-care (01) ==
LOC: HO.HPS 13:36
PROVIDERS: PCP Internal Medicine Geriatric Medicine; Visit Provider Hospitalist
DX: J45.51 Severe persistent asthma with (acute) exacerbation (principal); J98.4 Other disorders of lung; G47.33 Obstructive sleep apnea (adult) (pediatric); M35.01 Sjogren syndrome with keratoconjunctivitis; J39.8 Other specified diseases of upper respiratory tract; J98.11 Atelectasis
CPT/HCPCS: 99214

== ENCOUNTER → 2025-03-01 13:36 | Outpatient (BNVA) | payer MEDICAID, SELFPAY | PROVIDERS: PCP Internal Medicine Geriatric Medicine; Visit Provider Hospitalist | DX: J45.51 Severe persistent asthma with (acute) exacerbation (principal); J39.8 Other specified diseases of upper respiratory tract; J98.4 Other disorders of lung; G47.33 Obstructive sleep apnea (adult) (pediatric); M35.01 Sjogren syndrome with keratoconjunctivitis; J98.11 Atelectasis | CPT/HCPCS: 99212 ==

== ENCOUNTER 2025-03-18 15:27 | Outpatient (REF) | payer MEDICAID, SELFPAY ==
--- NOTE | ~2025-03-18 | XR_ITS ---
EXAMINATION: XR CHEST 2 VIEWS HISTORY: clearance for plastic surgery Tummy Tuck, Back Lipo and BBL COMPARISON: Comparison is made with the prior examination dated 04/12/2022. FINDINGS: PA and lateral views of the chest are submitted. The lungs are expanded and clear. There is no pleural effusion, pneumothorax, or pulmonary vascular congestion. The heart is normal in size. The bones are intact. XR/XR chest 2V IMPRESSION: No acute cardiopulmonary abnormality. Electronically signed by: Benjamín Henderson MD 03/18/2025 03:47 PM EDT
--- OUTSIDE RECORDS SUMMARY | 2025-03-18 15:29 | XMS_ITS | Encounter Summary ---
Author Organization [employer] Address [address] [place] [address] [address] [place] [address] Care Team Providers Care Rubber Belt Splicer Name Role Phone Name, Charbel CARRILLO Primary Care Provider [phone] Мария Gudino PharmD Unavailable [phone] Reason for Visit * Reason Onset Date Comments labs needed 03/14/2025 Encounter Details Date Type Department Care Team ([facility] st Contact Info) Description 03/14/2025 Telephone [facility] [address] [place], [place] [id number] Name, MD Charbel [address] [place] [address] labs needed Social History Tobacco Use Types Packs/Day Years [...] the past 12 months, has t he [employer], gas, oil or water [employer] threatened to shut off services in your [...] encounter Miscellaneous Notes * Telephone Encounter - Jackie Tucker RN - 03/17/2025 3:51 PM EDT Tc to [facility] to confirm if they contacted pt in regards to rescheduling their surgery. Pipe reports that no one has reached out to pt yet because they're waiting for their nurseto discuss with pt in regards to cardiac clearance and medications. Advised them that pt does not have a picker / packer and will not see them until June for a new pt appt. Pipe reports pt knew that they needed cardiac clearance since December from this year and will call us back once the nurse has reached out to pt to discuss further. Advised them pt has a pre-op appt tomorrow with us tomorrow so it would be great for us to get an answer prior to their appt. Betancur expressed understanding, call disconnected and pt has pre-op appt tomorrow at 2pm with Angela Silveira NP. * Telephone Encounter - Jackie Tucker RN - 03/17/2025 1:31 PM EDT Tc to pt to let them know that per [facility] that their surgery will have to be rescheduled due to them not having a picker / packer to get clearance from. Pt reports they had a picker / packer and hasn't seen one in about two years. Pt advised we can place a referral but it will take weeks-months before pt would get seen by a picker / packer which means surgery would have to be rescheduled. Pt insisted on calling their picker / packer who reports they discharged them two years ago, but they can give them a letter which states they were discussed, they offered pt a new pt appt in June. Pt reports they're not cancelling their appt with their PCP tomorrow because no one has called them from the surgery office to let them know that it would need to be rescheduled. Pt advised that they reported they would reach out to them and advised to contact the surgery office to discuss further. Pt agrees with plan and call disconnected. * Telephone Encounter - Jackie Tucker RN - 03/16/2025 4:13 PM EDT Tc to pt to let them know surgery office is requteisng cardiac clearance from a picker / packer but ptdoes not see one. Pt reports they had a cardiac catherization about 2 years ago where the picker / packer stated that their heart looked fine. Pt is on BP meds which is being managed by their PCP. [facility] tell [facility] pt does not have a picker / packer and if the cardiac clearance can be done. The Pre-op department reports they will call us back to clarify. Incoming call from [facility] who reports pt needs to get cardiac clearance from a picker / packer due to their age. Advised them, a referral would have to be placed which could take a while before they pt is able to get seen. They reports pt knew about the labs and clearance that needed to be done since December of this year and the original surgery date was scheduled for 01/25/25. They report that pt surgery will have to be rescheduled and states they will reach out to pt to let them know. Tc to pt to let them know, no answer and unable to lvm at this time. Will re-attempt tc in the PM. * Telephone Encounter - Jackie Tucker RN - 03/16/2025 12:08 PM EDT Tc to Caren (senior master scheduler ) to let them know pt leaves out to [place] on 03/26/25 and needs an pre-op appt before that for cosmetic surgery. Discussed with senior master scheduler Caren who was able to provide us with an appt slot on 03/18/25 with Angela Silveira NP at 2pm and placed in hold for team nurse. Tc to pt to schedule them for Pre-op appt and pt agrees to come in this friday on 03/18/25 at 2pm with Angela Silveira NP. Pt states they will call back the surgeons office to tell them to contact us to provide up with pre-op information. * Telephone Encounter - Jackie Tucker RN - 03/15/2025 3:55 PM EDT Tc to pt in regards to requesting medical clearance for surgery they're supposed to have done on 03/29 and will be leaving out to [place] on 03/26/25. Pt rep[orts they received clearance from their commission specialist which is why they scheduled their surgery. Pt advised they still need medical clearance and a pre-op appt with their PCP. Pt advised we have no available appointments right now but we'll discuss with our senior master scheduler to see if we can find something prior to their surgery. Pt expressed understanding. Tc x2 to [facility] in [place], no answer, unable to lvm due to mail box is full.Will re-attempt outreach tomorrow. Tc to [facility] after numerous attempts to get pre-op details. Spoke with the consultation department, informed us that the pre-op team is in a meeting but they will take down out contact information so that they can follow up with us. Consultation department was able to provide us with the date, type of surgery and fax number but does not know anymore details. Will follow up with our senior master scheduler to see if we can find an pre-op appt slot for pt while waiting to hear call from the pre-op department. Incoming call from from [facility] spoke with jessa who provided the rest of pre-op details. Jessa reports they do not have an OV from surgeon for provider to review but they can fax over labs orders. Confirmed their fa number, provided our and no further questions at this time. Name of Facility: [facility] Date of Surgery: March 30, 2025 Surgical Procedure: Tummy Tuck, Back Lipo and BBL Surgeon's name: Dr. Arleth Méndez Type of Anesthesia: General Surgeon office number: [phone] Contact name: Jessa Labs Needed: CBC, CMP, PT/INR, APTT, A1C, HIV, HCG , Urinalysis, Chest X-Ray, Clearance from picker / packer and commission specialist due to age and prior history EKG: Yes Last OV note from surgeon: team nurse requested but they do not have one on file but is faxing overlab orders for us to upload into pt chart. * Telephone Encounter - Zehra Wood - 03/14/2025 12:54 PM EDT PT walked in stating that she will be getting surgery and is in need of the following labs Surgery 03/29/2025 in [place] will leave 03/26/25 Aptt Cardiac Clearance CBC Chest x-ray CMP EKG-12Leads Glycohemoglobin HCG quantitative HIV Medical Clearance PT/INR Urinalysis documented in this encounter Plan of Treatment Upcoming Encounters Date Type Department Care Team (Late st Contact Info) Description 05/10/2025 3:45 PM EDT Office Visit [facility] [address] [place] [address] Name, MD Charbel [address] [place] [address] documented as of this encounter Goals Goal Patient Goal Type Associated Problems Recent Progress Patient-Stated? Author Record your blood pressure once per day Blood Pressure No Puia, Мария, PharmD Blood Pressure < 140/90 Blood Pressure 137/92(2024 2:40 PM EDT) No Puia, Мария, PharmD Patient [...] documented as of this encounter Care Teams Rubber Belt Splicer Relationship Specialty Start Date End Date Name, MD Charbel [address] [place] [address] PCP - General Family Medicine 02/26/16 Puia, Мария, PharmD [address] [place] [address] Pharmacist Internal Medicine 04/29/23 documented as of this encounter
--- OUTSIDE RECORDS SUMMARY | 2025-03-18 15:29 | XMS_ITS | Encounter Summary ---
Author Organization [employer] Address [address] [place] [address] [address] [place] [address] Care Team Providers Care Bicycle Repairman Name Role Phone Name, Charbel CARRILLO Primary Care Provider [phone] Мария Gudino PharmD Unavailable [phone] Reason for Visit * Reason Comments Med Refill Encounter Details Date Type Department Care Team (Late st Contact Info) Description 07/24/2024 Refill [facility] [address] [place] [address] Мария Gudino, PharmD [address] [place] [address] Essential hypertension; Type 2 diabetes mellitus with hyperglycemia, with long-term current use of insulin ([facility]) Social History Tobacco Use Types Packs/Day Years [...] Description 05/10/2025 3:45 PM EDT Office Visit [facility] [address] [place] [address] Name, MD Charbel [address] [place] [address] documented as of this encounter Goals Goal [...] hyperglycemia, with long-term current use of insulin ([facility]) documented in this encounter Additional Health Concerns Assessment Noted Time PHQ-9 Depression Total Score: 0 03/22/20 24 1:45 PM EDT documented as of this encounter Care Teams Bicycle Repairman Relationship Specialty Start Date End Date Name, MD Charbel [address] [place] [address] PCP - General Family Medicine 02/26/16 Мария Gudino PharmD [address] [place] [address] Pharmacist Internal Medicine 04/29/23 documented as of this encounter
--- OUTSIDE RECORDS SUMMARY | 2025-03-18 15:29 | XMS_ITS | Encounter Summary ---
Author Organization [employer] Address [address] [place] [address] [address] [place] [address] Care Team Providers Care Rectifier Operator Name Role Phone Name, Charbel CARRILLO Primary Care Provider [phone] Мария Gudino PharmD Unavailable [phone] Reason for Visit * Reason Onset Date Comments Referral 03/24/2023 Encounter Details Date Type Department Care Team ([facility] st Contact Info) Description 03/24/2023 Telephone [facility] [address] [place], [place] [phone] Name, MD Charbel [address] [place] [address] Referral Social History Tobacco Use Types Packs/Day [...] on april 082022 Please contact pt at [phone] documented in this encounter Plan of Treatment Upcoming Encounters Date Type Department Care Team (Late st Contact Info) Description 05/10/2025 3:45 PM EDT Office Visit [facility] [address] [place] [address] Name, MD Charbel [address] [place] [address] documented as of this encounter Visit Diagnoses Not on filedocumented in this encounter Additional Health Concerns Assessment Noted Time PHQ-9 Depression Total Score: 0 10/23/20 22 3:25 PM EST documented as of this encounter Care Teams Rectifier Operator Relationship Specialty Start Date End Date Name, MD Charbel [address] [place] [address] PCP - General Family Medicine 02/26/16 Мария Gudino, FarihaD [address] [place] [address] Pharmacist Internal Medicine 04/29/23 documented as of this encounter
--- OUTSIDE RECORDS SUMMARY | 2025-03-18 15:29 | XMS_ITS | Encounter Summary ---
Author Organization [employer] Address [address] [place] [address] 7 [place] [address] Care Team Providers Care Food Sales Clerk Name Role Phone Name, Charbel CARRILLO Primary Care Provider [phone] Мария Gudino PharmD Unavailable [phone] Reason for Visit * Reason Comments Med Refill Encounter Details Date Type Department Care Team ([facility] st Contact Info) Description 02/20/2024 Refill [facility] [address] [place], [place] [phone] Name, MD Charbel [address] [place] [address] Social History Tobacco Use Types Packs/Day Years [...] 3:45 PM EDT Office Visit [facility] [address] [place] [address] NameCharbel MD [address] [place] [address] documented as of this encounter Goals Goal Patient Goal Type Associated Problems Recent Progress Patient-Stated? Author Record your blood pressure once per day Blood Pressure No PuiaМария, PharmD Blood Pressure < 140/90 Blood Pressure 137/92( 025 2:40 PM EDT) No PuiaRichardМария, PharmD documented as of this encounter Visit Diagnoses Not on filedocumented in this encounter Additional Health Concerns Assessment Noted Time PHQ-9 Depression Total Score: 0 10/23/20 22 3:25 PM EST documented as of this encounter Care Teams Food Sales Clerk Relationship Specialty Start Date End Date Name, MD Charbel [address] [place] [address] PCP - General Family Medicine 02/26/16 YingiaМария, PharmD [address] [place] [address] Pharmacist Internal Medicine 04/29/23 documented as of this encounter
--- OUTSIDE RECORDS SUMMARY | 2025-03-18 15:29 | XMS_ITS | Encounter Summary ---
Author Organization [employer] Address [address] [place] [address] 7 [place] [address] Care Team Providers Care Urgent Care Physician Name Role Phone Name, Charbel CARRILLO Primary Care Provider [phone] Мария Gudino PharmD Unavailable [phone] Reason for Visit * Reason Onset Date Comments Hospital Follow-up 09/29/2024 Encounter Details Date Type Department Care Team (Late st Contact Info) Description 09/29/2024 Telephone [facility] MED[facility]INE 230 [place], [place] [phone] Name, MD Charbel [address] [place] [address] Hospital Follow-up Social History Tobacco Use Types [...] from pt requesting a HDF appt. Hospital: [facility] Date of admission: 08/15/24 Discharge date: Diagnosed: stroke and eye symptoms , eye injection *Send message to [place] Clinical Care Coordinators documented in this encounter Plan of Treatment Upcoming Encounters Date Type Department Care Team (Late st Contact Info) Description 05/10/2025 3:45 PM EDT Office Visit [facility] [address] [place] [address] Name, MD Charbel [address] [place] [address] documented as of this encounter Goals Goal Patient Goal Type Associated Problems Recent Progress Patient-Stated? Author Record your blood pressure once per day Blood Pressure No Мария Gudino, PharmD Blood Pressure < 140/90 Blood Pressure 137/92(2024 2:40 PM EDT) No Мария Gudino, PharmD Patient [...] documented as of this encounter Care Teams Urgent Care Physician Relationship Specialty Start Date End Date Name, MD Charbel [address] [place] [address] PCP - General Family Medicine 02/26/16 Мария Gudino PharmD [address] [place] [address] Pharmacist Internal Medicine 04/29/23 documented as of this encounter
--- OUTSIDE RECORDS SUMMARY | 2025-03-18 15:29 | XMS_ITS | Clinical Summary ---
Author Organization [facility] Address [address] [place] [address] Care Team Providers Care Group Tester Name Role Phone Noemí Umana PA-C Primary Care Provider [phone] Source Comments PLEASE NOTE, if this patient [...] mcg/actuation inhalerIndication s:Mild persistent asthma without complication ([facility]) Inhale 1 Puff into the lungs 2 [...] Diagnosed Date H/O arthroscopic right knee surgery. [facility] [address] [place]. 04/17/15. 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 Hx of screening mammography 09/01/15 09/08/2015 Overview (09/08/2015): BILATERAL MAMMOGRAM SCREENING DONE AT [facility] RESULTS WAS SENT TO MEDICAL RECORDS TO BE SCAN HTN (hypertension) 02/24/2015 Asthma ([facility]) 02/24/2015 Bipolar disorder ([facility]) Overview (02/24/2015): [facility] Right shoulder pain Overview (01/18/2016): Used to be seen for PM at [facility], got injections, not better, ref to [...] on 09 January 2016 14:38 Encounter info: [id number], [facility], 01/08/2016 - 01/15/2016 * Final Report * Reason For Exam rt shoulder pain RCT;rt shoulder pain RCT RESULT: MRI Joint Ext Upper W/O Contrast Right [facility] VISIT NUMBER :[id number] Patient Name : Sade Izaguirre Date of : 1970 Date of Exam : 01/08/2016 Referring Physician : GINA MAXWELL [address], Attn: [place] [address] Exam : MR - SHOULDER (C-) CPT 09508 - RIGHT Room Description : [facility] 2 1.5 Technique : Ax PD Fsat, [...] disc, cervical Overview (08/31/2015): MRI done at [facility] 11.15.14 Hyperlipidemia Social History Tobacco Use Types [...] on file Insurance [employer] Care Teams Group Tester Relationship Specialty Start Date End Date Noemí Umana PA-C [address] [place] [address] PCP - General 01/12/19
--- OUTSIDE RECORDS SUMMARY | 2025-03-18 15:29 | XMS_ITS | Encounter Summary ---
Author Organization [employer] Address [address] [place] [address] Care Team Providers Care Advertising Sales Consultant Name Role Phone Name, Charbel CARRILLO Primary Care Provider [phone] Мария Gudino PharmD Unavailable Encounter Details Date Type Department Care Team (Late st Contact Info) Description 05/25/2024 Orders Only [facility] [address] [place] [address] Provider, MD Fant[place] Social History Tobacco Use [...] Description 05/10/2025 3:45 PM EDT Office Visit [facility] MED[facility]INE [address] [place] [address] Name, MD Charbel [address] [place] [address] documented as of this encounter Goals Goal [...] documented as of this encounter Care Teams Advertising Sales Consultant Relationship Specialty Start Date End Date Name, MD Charbel [address] [place] [address] PCP - General Family Medicine 02/26/16 Мария Gudino PharmD [address] [place] [address] Pharmacist Internal Medicine 04/29/23 documented as of this encounter
--- OUTSIDE RECORDS SUMMARY | 2025-03-18 15:29 | XMS_ITS | Clinical Summary ---
Author Organization [employer] [facility] Address [address] [place] [address] Care Team Providers Care Monumental Stonemason Name Role Phone Name, Charbel CARRILLO Primary Care Provider [phone] Surgical History Surgery Date Site/Laterality Comments SECTION PROCEDURE: HISTORICAL ; COMMENT: 6 CHOLECYSTECTOMY PROCEDURE: HISTORICAL CHOLECYSTECTOMY APPENDECTOMY PROCEDURE: HISTORICAL APPENDECTOMY Medical History Medical History Date Comments Carpal tunnel syndrome 09/09/2006 DX:Carpal tunnel syndrome Anxiety 07/02/2007 DX:Anxiety Asthma 09/09/2006 DX:Asthma Bipolar I disorder (CMS/HCC V24, CMS/HCC V28) 07/02/2007 DX:Bipolar I disorder (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
--- OUTSIDE RECORDS SUMMARY | 2025-03-18 15:29 | XMS_ITS | Encounter Summary ---
Author Organization [employer] Address [address] [place] [address] 7 [place] [address] Care Team Providers Care Computer Numerical Control Grinder Name Role Phone Name, Charbel CARRILLO Primary Care Provider [phone] Мария Gudino PharmD Unavailable [phone] Reason for Visit * Reason Onset Date Comments Hospital Follow-up 09/15/2024 Encounter Details Date Type Department Care Team (Late st Contact Info) Description 09/15/2024 Telephone [facility] MEDICINE 230 [place], [place] [phone] Name, MD Charbel 230 [place] [address] Hospital Follow-up Social History Tobacco Use Types [...] from pt requesting a HDF appt. Hospital: [facility] Date of admission: 09/14/2024 Discharge date: 09/15/2024 Diagnosed: Visual changes , Bipolar disorder documented in this encounter Plan of Treatment Upcoming Encounters Date Type Department Care Team (Late st Contact Info) Description 05/10/2025 3:45 PM EDT Office Visit [facility] MED[facility]INE 230 [place] [address] Name, MD Charbel [address] [place] [address] documented as of this encounter Goals Goal [...] documented as of this encounter Care Teams Computer Numerical Control Grinder Relationship Specialty Start Date End Date Name, MD Charbel [address] [place] [address] PCP - General Family Medicine 02/26/16 Мария Gudino PharmD [address] [place] [address] Pharmacist Internal Medicine 04/29/23 documented as of this encounter
--- OUTSIDE RECORDS SUMMARY | 2025-03-18 15:29 | XMS_ITS | Encounter Summary ---
Author Organization [employer] Address [address] [facility] [facility] 7 [place] [address] Care Team Providers Care Mastic Worker Name Role Phone Name, Charbel CARRILLO Primary Care Provider [phone] Мария Gudino PharmD Unavailable [phone] Encounter Details Date Type Department Care Team ([facility] st Contact Info) Description 09/24/2023 Abstract [facility] MED[facility]INE 230 [place], [place] [phone] Name, MD Charbel [address] [place] [address] Social History Tobacco Use Types Packs/Day Years [...] Description 05/10/2025 3:45 PM EDT Office Visit [facility] [address] [place] [address] Charbel [place] MD [address] [place] [address] documented as of this encounter Goals Goal Patient Goal Type Associated Problems Recent Progress Patient-Stated? Author Record your blood pressure once per day Blood Pressure No Puia, Мария, PharmD Blood Pressure < 140/90 Blood Pressure 137/92( 025 2:40 PM EDT) No Puia, Мария, PharmD documented as of this encounter Visit Diagnoses Not on filedocumented in this encounter Additional Health Concerns Assessment Noted Time PHQ-9 Depression Total Score: 0 10/23/20 22 3:25 PM EST documented as of this encounter Care Teams Mastic Worker Relationship Specialty Start Date End Date Charbel [place] MD [address] [place] [address] PCP - General Family Medicine 02/26/16 Puia, Мария, PharmD [address] [place] [address] Pharmacist Internal Medicine 04/29/23 documented as of this encounter
--- OUTSIDE RECORDS SUMMARY | 2025-03-18 15:29 | XMS_ITS | Encounter Summary ---
Author Organization [employer] Address [address] [place] [address] 7 [place] [address] Care Team Providers Care Assembler Bicycle Name Role Phone Name, Charbel CARRILLO Primary Care Provider [phone] Мария Gudino PharmD Unavailable [phone] Reason for Visit * Reason Onset Date Comments Appointment Request 09/22/2023 Encounter Details Date Type Department Care Team ([facility] st Contact Info) Description 09/22/2023 Telephone [facility] MEDICINE 230 [place], [place] [phone] Name, MD Charbel 230 [place], [place] [phone] Appointment Request Social History Tobacco Use Types [...] @ 2:15 pm (NOTES : Claim # [id number]- [place] [facility] -09/05/23- Went to [facility] ED - Xray negative but pt. wants MRI ) Pt states she has same day appt with Her Orthopedic surgeon and is requesting to see if provider has anything earlier or for later time. Please contact pt at [phone] documented in this encounter Plan of Treatment Upcoming Encounters Date Type Department Care Team (Late st Contact Info) Description 05/10/2025 3:45 PM EDT Office Visit [facility] MED[facility]INE [address] [place] [address] Name, MD Charbel [address] [place] [address] documented as of this encounter Goals Goal Patient Goal Type Associated Problems Recent Progress Patient-Stated? Author Record your blood pressure once per day Blood Pressure No Мария Gudino, PharmD Blood Pressure < 140/90 Blood Pressure 137/92( 025 2:40 PM EDT) No Мария Gudino, PharmD documented as of this encounter Visit Diagnoses Not on filedocumented in this encounter Additional Health Concerns Assessment Noted Time PHQ-9 Depression Total Score: 0 10/23/20 22 3:25 PM EST documented as of this encounter Care Teams Assembler Bicycle Relationship Specialty Start Date End Date Name, MD Charbel [address] [place] [address] PCP - General Family Medicine 02/26/16 Мария Gudino PharmD [address] [place] [address] Pharmacist Internal Medicine 04/29/23 documented as of this encounter
--- OUTSIDE RECORDS SUMMARY | 2025-03-18 15:29 | XMS_ITS | Encounter Summary ---
Author Organization [employer] Address [address] [place] [address] [address] [address] Care Team Providers Care Shop Cooper Name Role Phone Name, Charbel CARRILLO Primary Care Provider [phone] Мария Gudino PharmD Unavailable [phone] Reason for Visit * Reason Onset Date Comments ER Follow-up 08/20/2023 Encounter Details Date Type Department Care Team (Late st Contact Info) Description 08/20/2023 Telephone [facility] MEDICINE [address] [place], [place] [phone] Name, MD Charbel 230 [place] [address] ER Follow-up Social History Tobacco Use Types [...] to report ED visit on 08/19/23 at [facility]. Seen for fall. Patient advised will forward to team nurse for follow up. documented in this encounter Plan of Treatment Upcoming Encounters Date Type Department Care Team (Late st Contact Info) Description 05/10/2025 3:45 PM EDT Office Visit [facility] MEDICINE [address] [place] [address] Name, MD Charbel [address] [place] [address] documented as of this encounter Goals Goal [...] as of this encounter Care Teams Shop Cooper Relationship Specialty Start Date End Date NameCharbel MD [address] [place] [address] PCP - General Family Medicine 02/26/16 PuiaRichardМария, PharmD [address] [place] [address] Pharmacist Internal Medicine 04/29/23 documented as of this encounter
--- OUTSIDE RECORDS SUMMARY | 2025-03-18 15:29 | XMS_ITS | Encounter Summary ---
Author Organization [employer] Address [address] [place] [address] 7 [place] [address] Care Team Providers Care Rehabilitator Name Role Phone Name, Charbel CARRILLO Primary Care Provider [phone] Мария Gudino PharmD Unavailable [phone] Reason for Visit * Reason Onset Date Comments Prior Authorization 01/06/2024 Encounter Details Date Type Department Care Team (Late st Contact Info) Description 01/06/2024 Telephone [facility] MEDICINE 230 [place], [place] [phone] Name, MD Charbel [address] [place] [address] Prior Authorization Social History Tobacco Use Types [...] 01/13/2024 10:48 AM EST Tc from [facility] calling in regards to the message below states needs PA so they can schedule a appt with the patient * Telephone Encounter - Lucio Edgar - 01/06/2024 10:44 AM EST Tc bernabe Lagos working with [facility] stating pt needs prior authorization for Ct Scan If any questions you can contact [facility] [phone] documented in this encounter Plan of Treatment Upcoming Encounters Date Type Department Care Team (Late st Contact Info) Description 05/10/2025 3:45 PM EDT Office Visit [facility] MED[facility]INE [address] [place] [address] Name, MD Charbel [address] [place] [address] documented as of this encounter Goals Goal [...] documented as of this encounter Care Teams Rehabilitator Relationship Specialty Start Date End Date Name, MD Charbel [address] [place] [address] PCP - General Family Medicine 02/26/16 Мария Gudino PharmD [address] [place] [address] Pharmacist Internal Medicine 04/29/23 documented as of this encounter
--- OUTSIDE RECORDS SUMMARY | 2025-03-18 15:29 | XMS_ITS | Encounter Summary ---
Author Organization [employer] Address [address] [place] [address] 7 [place] [address] Care Team Providers Care Putty Worker Name Role Phone Name, Charbel CARRILLO Primary Care Provider [phone] Мария Gudino PharmD Unavailable [phone] Encounter Details Date Type Department Care Team ([facility] Contact Info) Description 04/21/2023 Abstract [facility] MEDICINE 230 [place], [place] [phone] Name, MD Chabrel 230 [place] [address] Social History Tobacco Use Types Packs/Day Years [...] Description 05/10/2025 3:45 PM EDT Office Visit [facility] MEDICINE [address] [place] [address] Name, MD [place] [address] documented as of this encounter Visit Diagnoses Not on filedocumented in this encounter Additional Health Concerns Assessment Noted Time PHQ-9 Depression Total Score: 0 10/23/20 3:25 PM EST documented as of this encounter Care Teams Putty Worker Relationship Specialty Start Date End Date Name, MD Charbel [address] [place] [address] PCP - General Family Medicine 02/26/16 Мария Gudino, FarihaD [address] [place] [address] Pharmacist Internal Medicine 04/29/23 documented as of this encounter
--- OUTSIDE RECORDS SUMMARY | 2025-03-18 15:29 | XMS_ITS | Encounter Summary ---
Author Organization [employer] Address [address] [place] [address] 7 [place] [address] Care Team Providers Care Aluminum Welder Name Role Phone Name, Charbel CARRILLO Primary Care Provider [phone] Мария Gudino PharmD Unavailable [phone] Reason for Visit * Reason Onset Date Comments Error 12/08/2023 Encounter Details Date Type Department Care Team ([facility] st Contact Info) Description 12/08/2023 Telephone [facility] MEDICINE 230 [place], [place] [phone] Name, MD Charbel [address] [place], [place] [phone] Error Social History Tobacco Use Types Packs/Day [...] [facility] MED[facility]INE [address] [place] [address] Name, MD Charbel [address] [place] [address] documented as of this encounter Goals Goal [...] documented as of this encounter Care Teams Aluminum Welder Relationship Specialty Start Date End Date NameCharbel MD [address] [place] [address] PCP - General Family Medicine 02/26/16 Puia, Мария, PharmD [address] [place] [address] Pharmacist Internal Medicine 04/29/23 documented as of this encounter
--- OUTSIDE RECORDS SUMMARY | 2025-03-18 15:29 | XMS_ITS | Encounter Summary ---
Author Organization [employer] Address [address] [place] [address] 7 [place] [address] Care Team Providers Care Order Worker Name Role Phone Name, Charbel CARRILLO Primary Care Provider [phone] Мария Gudino PharmD Unavailable [phone] Reason for Visit * Reason Comments Med Refill Encounter Details Date Type Department Care Team ([facility] st Contact Info) Description 09/16/2023 Refill [facility] MEDICINE 230 [place], [place] [phone] Name, MD Charbel [address] [place] [address] Social History Tobacco Use Types Packs/Day Years [...] Description 05/10/2025 3:45 PM EDT Office Visit [facility] MEDICINE [address] [place] [address] NamehCarbel MD [address] [place] [address] documented as of this encounter Goals Goal [...] documented as of this encounter Care Teams Order Worker Relationship Specialty Start Date End Date Name, MD Charbel [address] [place] [address] PCP - General Family Medicine 02/26/16 YingiaМария, PharmD [address] [place] [address] Pharmacist Internal Medicine 04/29/23 documented as of this encounter
--- OUTSIDE RECORDS SUMMARY | 2025-03-18 15:29 | XMS_ITS | Clinical Summary ---
Author Organization [employer] Address [address] [place] [address] 7 [place] [address] Care Team Providers Care Exhaust Equipment Operator Name Role Phone Name, Charbel CARRILLO Primary Care Provider [phone] Мария Gudino PharmD Unavailable [phone] Allergies Active Allergy Reactions Criticality Noted [...] 02/24/2015 Other reaction(s): Hives / Skin Rash,SOB Kaleb Flavoring Agent (Non-Screening) Wheezing 05/30/2009 Hives/rash/sob Other [...] exceed 200mg in 24 hours Active Umeclidinium [place] (Incruse Ellipta) 62.5 MCG/ACT aerosol powder Inhale [...] tabletIndications :Bipolar affective disorder, remission status unspecified (CMS/[facility]) Take 1 tablet (20 mg) by mouth [...] hyperglycemia, with long-term current use of insulin (CMS/[facility]) Take 1 tablet (81 mg) by [...] 2024 Active Blood Glucose Monitoring Suppl (FreeStyle [place] Lite) w/Device kit Use to test blood [...] hyperglycemia, with long-term current use of insulin (CMS/[facility]),Hyperli pidemia, unspecified hyperlipidemia type TAKE 1 TABLET(40 [...] 28 days. 112 tablet 025 2024 Active oxyCODONE (Roxicodone) 10 MG immediate release tabletIndications :Chronic pain syndrome Take 1 tablet (10 mg) by mouth every 6 (six) hours if needed for severe pain for up to 28 days. 112 tablet 025 2024 Discontinued(R eorder (will not trigger notification to Pharmacy)) Active Problems Problem Noted Date Diagnosed Date Systemic lupus erythematosus, unspecified 2024 Entrapment of right ulnar nerve at elbow Carpal tunnel syndrome of right wrist 12/14/2024 Retinal vein occlusion of right eye 10/07/2024 Overview (10/07/2024): . 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 Agreement: 10/23/23 Additional considerations/risk factors: multiple sedating medications - also prescribed clonazepam, zolpidem, and gabapentin Impingement syndrome of right shoulder region Neck pain 04/01/2024 S/P endometrial ablation 09/24/2023 023 GERD with [...] Used to be seen for PM at [facility], got injections, not better, ref [...] on 09 January 2016 14:38 Encounter info: [id number], [facility] [facility], [facility], 01/08/2016 - 01/15/2016 * Final Report * Reason For Exam rt shoulder pain RCT;rt shoulder pain RCT RESULT: MRI Joint Ext Upper W/O Contrast Right [facility] VISIT NUMBER :[id number] Patient Name : Sade Izaguirre Date of : 1970 Date of Exam : 01/08/2016 Referring Physician : GINA CROFT [address], Attn: [place] [address] Exam : MR - SHOULDER (C-) CPT 24377 - RIGHT Room Description : [facility] 2 1.5 Technique : Ax PD Fsat, [...] Used to be seen for PM at [facility], got injections, not better, ref [...] on 09 January 2016 14:38 Encounter info: [id number], [facility] [facility], [facility], 01/08/2016 - 01/15/2016 * Final Report * Reason For Exam rt shoulder pain RCT;rt shoulder pain RCT RESULT: MRI Joint Ext Upper W/O Contrast Right [facility] VISIT NUMBER :[id number] Patient Name : Sade Izaguirre Date of : 1970 Date of Exam : 01/08/2016 Referring Physician : GINA CROFT [address], Attn: [place] [address] Exam : MR - SHOULDER (C-) CPT [id number] - RIGHT Room Description : [facility] 2 1.5 Technique : Ax PD Fsat, [...] knee 02/05/2023 Overview (02/05/2023): Severe, follows at [facility] Was told too young for TKR Urinary [...] Encounters Date Type Department Care Team Description 03/18/2025 2:00 PM EDT Office Visit [facility] [address] [place] [address] Angela Silveira FNP Type 2 diabetes mellitus with chronic kidney disease, with long-term current use of insulin, unspecified CKD stage (CMS/HCC) (Primary Dx); Preop examination 03/18/2025 Travel 03/16/2025 Telephone [facility] [address] [place] [address] Veronica Harkins MA Chart Prep 03/14/2025 Telephone [facility] [address] [place] [address] Charbel Lyons MD labs needed 03/03/2025 Telephone [facility] [address] [place] [address] Charbel Lyons MD Nurse Triage 02/18/2025 Refill [facility] [address] [place] [address] Charbel Lyons MD Chronic pain syndrome 02/16/2025 Telephone [facility] [address] [place] [address] Machelle Yanes LPN Prior Authorization 02/03/2025 11:30 AM EDT Office Visit [facility] [address] [place] [address] Charbel Lyons MD Type 2 diabetes mellitus with chronic kidney disease, with long-term current use of insulin, unspecified CKD stage (CMS/[facility]) (Primary Dx); Dysphagia, unspecified type; Essential hypertension; Moderate persistent asthma, unspecified whether complicated; Chronic pain syndrome 02/03/2025 Travel 02/03/2025 Refill [facility] [address] [place] [address] Мария Gudino, Aleisha Type 2 diabetes mellitus with hyperglycemia, with long-term current use of insulin (CMS/[facility]); Hyperlipidemia, unspecified hyperlipidemia type 02/01/2025 Telephone [facility] [address] [place] [address] Roz Le, RN Rescheddule ADULT LITERACY TEACHER RV 02/04/25 01/31/2025 Telephone [facility] [address] [place] [address] Charbel Lyons MD [facility] (Glove, exam vnyl med) 01/28/2025 Population Health Risk Score [facility] ([facility] Department [address] [place] [phone] Provider, Population Health Generic 01/25/2025 Refill [facility] [address] [place] [address] Charbel Lyons MD 01/13/2025 Telephone [facility] [address] [place] [address] Nick Magdaleno MA Appointment Request ( Name because recently had surgery done on 11/29 for arm and pulmonary surgery on 12/30 . ) 01/13/2025 Telephone [facility] [address] [place] [address] Charbel Lyons MD Appointment Request 01/13/2025 Refill [facility] [address] [place] [address] Charbel Lyons MD Chronic pain syndrome 01/07/2025 Refill [facility] [address] [place] [address] Charbel Lyons MD Vomiting and diarrhea 12/30/2024 Patient Outreach [facility] [address] [place] [address] Charbel Lyons MD Care Coordination (Outreach) 12/30/2024 Telephone [facility] [address] [place] [address] Charbel Lyons MD Care Coordination ([facility] program graduation) 12/25/2024 Refill [facility] [address] [place] [address] Charbel Lyons MD 12/23/2024 Refill [facility] [address] [place] [address] Lizet Pickering DO Acute pain of right shoulder 12/23/2024 Refill [facility] [address] [place], [place] [phone] Charbel Lyons MD Vomiting and diarrhea; Hyperglycemia; Acute pain of right shoulder 12/21/2024 Refill [facility] [address] [place] [address] Charbel Lyons MD Chronic pain syndrome 12/21/2024 Telephone [facility] [address] [place] [address] Jyoti Medina MA from Last 3 Months Immunizations Name Administration Dates Next Due HepB-CpG 07/07/2023,04/01/2023 Influenza injectable quadriv alent IIV4 with preservative 08/18/2018,09/24/2017,08/09/2016 Influenza injectable quadriv alent preservative free 08/27/2023,08/06/2022,10/23/2021,08/19,08/17/2019,10/09/2014,12/05/2009 ,08/08/2008,09/30/2006 Influenza, IIV3, injectable 10/23/2021,1 ,08/17/2019,08/18,09/24/2017,08/09/2016,10/09/2014 ,12/05/2009,08/08/2008,09/30/2006 Influenza, Unspecified 10/23/2021,2019,08/17/2019,08/18,09/24/2017,08/09/2016 Influenza, seasonal, injecta ble, preservative free 08/17/2024 Moderna Covid-19 Vaccine 12+ 08/26/2022, 03/14/2022,11/13/2021,02/22,01/25/2021 Moderna Covid-19 Vaccine 6+ Bivalent 08/26/2022 Novel kfozxpheg-D2C6-16, preservative-free 12/05/2009 PPD Test 12/10/2006 Pfizer Covid-19 Vaccine 12+ 09/24/2023 Pneumococcal Conjugate PCV 20 04/01/2023 Pneumococcal Polysaccharide PPSV23 05/30/2009 TD (adult), 2 Lf tetanus tox oid, preservative free, adsorbed 09/30/2006 Td (adult) 09/30/2006 Td (adult), unspecified 09/30/2006 Tdap 11/03/2017 Zoster, Recombinant 07/07/2023,04/01/2023 Social History Tobacco Use Types Packs/Day Years Used Date Smoking Tobacco: Former Cigarettes Passive Smoke Exposure: Past Smokeless Tobacco: Former Tobacco Cessation:Counseling Given: Not Answered Alcohol Use [...] Sign Reading Time Taken Comments Blood Pressure 137/92 03/18/2025 2:40 PM EDT Pulse 88 03/18/2025 2:40 PM EDT Temperature 36.6 ??C (97.8 ??F) 03/18/2025 2:40 PM ED T Respiratory Rate 18 03/18/2025 2:40 PM EDT Oxygen Saturation 99% 03/18/2025 2:40 PM EDT Inhaled Oxygen Concentration - - Weight 84.9 kg (187 lb 2 oz) 03/18/2025 2:40 PM EDT Height 165.1 cm (5' 5 ) 03/18/2025 2:40 PM EDT Body Mass Index 31.14 03/18/2025 2:40 PM EDT Plan of Treatment Upcoming Encounters Date Type Department Care Team (Late st Contact Info) Description 05/10/2025 3:45 PM EDT Office Visit [facility] [address] [place] [address] Name, MD Charbel [address] [place] [address] Health Maintenance Due Date Last Done Comments CT Colonography 1970 FIT DNA/Cologuard 1970 FIT 1970 FOBT 1970 HIV Screening 1970 Sigmoidoscopy 1969 Diabetes: Foot Exam 1979 Pap Smear 1990 Cervical Cancer Screening 1999 HPV/Cotest 1999 COVID-19 Vaccine ( season) 2024 09/24/2023, 08/26/2022, 08/26/2022, Additional history exists Eye Exam 03/11/2025 03/11/2024 Depression Screening 03/22/2025 03/22/2024, 03/22/20 24 Lipid Panel 05/17/2025 05/17/2024, 02/16, 06/26/2021 Mammogram 06/17/2025 06/17/2024 Diabetes: Hemoglobin A1C 08/06/2025 025, 08/17/2024, 03/22/2024, Additional history exists SDOH Screening 09/16/2025 09/16/2024 Alcohol/Substance Use Screening 03/18/2026 03/18/2025 Tobacco Screening 03/18/2026 03/18/2025 DTaP/Tdap/Td Vaccines (2 - Td or Tdap) 11/03/2027 11/03/2017, 09/30/2006, 09/30/2006, Additional history exists Colonoscopy 12/15/2029 12/15/2019 Colorectal Cancer Screening 12/15/2029 RSV Patients and Patients Aged 60 years or older (1 - 1-dose 75+ series) 02/18/2044 Pneumococcal Vaccine: 50+ Years Completed 04/01/2023, 05/30/2009 Hepatitis B Vaccines Completed 07/07/2023, 04/01/20 Zoster Vaccines Completed 07/07/2023, 04/01/2023 Hepatitis C [...] Date/Time Associated Diagnosis Comments POCT GLUCOSE Routine 03/18/2025 2:43 PM EDT Type 2 diabetes mellitus with chronic kidney disease, with long-term current use of insulin, unspecified CKD stage (CMS/HCC) POCT GLYCATED HEMOGLOBIN, TOTAL Routine 02/03/2025 11:11 [...] to Health Maintenance Results * POCT Glucose (03/18/2025 2:43 PM EDT) Only the most recent of2 resultswithin the time period is included. Glucose Blood, POC 88 60 - 200 mg/dL QC Media Lot # [id number] Lot# Expiration Date Blood Capillary blood specimen / Unknown 03/18/2025 2:43 PM EDT Angela RAMIREZ POINT OF CARE TEST ENTER/EDIT ORDERABLES Final Result * POCT HGB A1C (02/03/2025 11:11 AM EDT) Hemoglobin A1C 6.0 4.0 - 6.0 % QC Media Lot # [id number] Lot# Expiration Date [id number] Blood 02/03/2025 11:1 1 AM EDT us Charbel Lyons MD POINT OF CARE TEST ENTER/EDIT OR DERABLES Final Result * Hepatitis Panel, General (07/20/2024 8:40 AM EDT) Hepatitis A IgM Nonreactive Nonreactive [facility] Comment:IgM antibodies to [place] V not detected; does not exclude earlyacute or recovered HAV infection. ~Hepatitis B Surface Antibody REACTIVE Nonreactive [facility] Comment:REACTIVE: > 11.99 mI U/mL Hepatitis B Core Antibody Nonreactive Nonreactive [facility] Hepatitis C Antibody Nonreactive Nonreactive [facility] Comment:Antibodies to HCV no t detected; does not exclude early acuteHCV infection. Hepatitis B Surface Ag Negative Negative [facility] 07/20/2024 8:40 AM EDT 07/20/2024 8:40 AM EDT us Generic External Data Provider LAB BLOOD ORDERAB LES Final Result [facility] [address] [place] [phone] [phone] * Mammography (06/17/2024) Mammogram BIRADS 1 Normal, Abnormal, BIRADS 1 , BIRADS 2 Anatomical Region Laterality Modality Other Charbel Eloy CARRILLO HEALTH MAINTENANCE Final Result * Lipid Panel, Standard (05/17/2024 10:55 AM EDT) Triglycerides 112 <150 mg/dL [facility] Comment:Desirable Triglyceri de: less than 150 mg/dLBorderline High Triglyceride 150-199 mg/dLHigh Triglyceride: 200-499 mg/dLVery High Triglyceride: greater than or equal to 5OO mg/dL Cholesterol 152 <200 mg/dL [facility] Comment:Desirable Cholestero l: less than 200 mg/dLBorderline High Cholesterol: 200-239 mg/dLHigh Cholesterol: greater than 239 mg/dL LDL Cholesterol Calculated 80 <100 mg/dL [facility] Comment:Desirable LDL: less than 100 mg/dLNear Optimal/Above Optimal LDL: 110- 129 mg/dLBorderline High LDL: 130-159 mg/dLHigh LDL: 160-189 mg/dLVery High LDL: greater than or equal to 190 mg/dL HDL Cholesterol 50 >40 mg/dL [facility] Comment:Desirable HDL: great er than 40 mg/dL Note: This HDL assay may give artificially low results in patients with liver disease. 05/17/2024 10:5 5 AM EDT 05/17/2024 11:39 AM EDT Charbel Lyons MD LAB BLOOD ORDERABLES Final Resul t [facility] [address] [place] [address] [phone] * Diabetes Eye Exam (03/11/2024) Eye Exam Normal Normal Charbel Lyons MD HEALTH MAINTENANCE Final Result * Hm Colonoscopy (12/15/2019) Colonoscopy Normal Normal 12/15/[address] - 12/15/2019 1:24 PM EST Colonoscopy performed at [facility] ( see scanned report) recommended 10 year follow up Historical Provider HEALTH MAINTENANCE Final Result from Last 3 Months or Most Recently Relevant to Health Maintenance [place] [address] [address] [place] [address] C3 [employer] PARTIAL Care Teams Exhaust Equipment Operator Relationship Specialty Start Date End Date Name, MD Charbel [address] [place] [address] PCP - General Family Medicine 02/26/16 Мария Gudino PharmD [address] [place] [address] Pharmacist Internal Medicine 04/29/23
--- OUTSIDE RECORDS SUMMARY | 2025-03-18 15:29 | XMS_ITS | Encounter Summary ---
Author Organization [employer] Address [address] [place] [address] 7 [place] [address] Care Team Providers Care Party Demonstrator Name Role Phone Name, Charbel CARRILLO Primary Care Provider [phone] Мария Gudino PharmD Unavailable [phone] Reason for Visit * Reason Comments Med Refill Encounter Details Date Type Department Care Team ([facility] st Contact Info) Description 09/16/[address] [facility] [address] [place], [place] [phone] Name, MD Charbel [address] [place] [address] Social History Tobacco Use Types Packs/Day Years [...] 3:45 PM EDT Office Visit [facility] [address] [place] [address] NameCharbel MD [address] [place] [address] documented as of this encounter Goals Goal Patient Goal Type Associated Problems Recent Progress Patient-Stated? Author Record your blood pressure once per day Blood Pressure No PuiaМария, PharmD Blood Pressure < 140/90 Blood Pressure 137/92( 025 2:40 PM EDT) No PuiaRichardМаиря, PharmD documented as of this encounter Visit Diagnoses Not on filedocumented in this encounter Additional Health Concerns Assessment Noted Time PHQ-9 Depression Total Score: 0 10/23/20 22 3:25 PM EST documented as of this encounter Care Teams Party Demonstrator Relationship Specialty Start Date End Date Name, MD Charbel [address] [place] [address] PCP - General Family Medicine 02/26/16 YingiaМария, PharmD [address] [place] [address] Pharmacist Internal Medicine 04/29/23 documented as of this encounter
--- OUTSIDE RECORDS SUMMARY | 2025-03-18 15:29 | XMS_ITS | Encounter Summary ---
Author Organization [employer] Address [address] [place] [address] 7 [place] [address] Care Team Providers Care Numberer And Wirer Name Role Phone Name, Charbel CARRILLO Primary Care Provider [phone] Мария Gudino PharmD Unavailable [phone] Reason for Visit * Reason Comments Med Refill Encounter Details Date Type Department Care Team ([facility] st Contact Info) Description 05/29/2024 Refill [facility] [address] [place], [place] [phone] Name, MD Charbel [address] [place] [address] Social History Tobacco Use Types Packs/Day Years [...] Description 05/10/2025 3:45 PM EDT Office Visit [facility] [address] [place] [phone] NameCharbel MD [address] [place] [address] documented as of this encounter Goals Goal [...] documented as of this encounter Care Teams Numberer And Wirer Relationship Specialty Start Date End Date Charbel Lyons MD [address] [place] [address] PCP - General Family Medicine 02/26/16 Мария Gudino, Aleisha [address] [place] [address] Pharmacist Internal Medicine 04/29/23 documented as of this encounter
--- OUTSIDE RECORDS SUMMARY | 2025-03-18 15:29 | XMS_ITS | Encounter Summary ---
Author Organization [employer] Address [address] [facility] [address] [place] [address] Care Team Providers Care Law Firm Partner Name Role Phone Name, Charbel CARRILLO Primary Care Provider [phone] Мария Gudino PharmD Unavailable [phone] Encounter Details Date Type Department Care Team (Latest Contact Info) Description 03/18/2025 Travel Social History Tobacco Use Types Packs/Day Years Used Date Smoking Tobacco: Former Cigarettes Passive Smoke Exposure: Past Smokeless Tobacco: Former Alcohol Use Standard Drinks/Week Comments Never 0 [...] Office Visit [facility] [address] [place] [address] Charbel Lyons MD [address] [place] [address] documented as of this encounter Goals Goal [...] documented as of this encounter Care Teams Law Firm Partner Relationship Specialty Start Date End Date Charbel Lyons MD [address] [place] [address] PCP - General Family Medicine 02/26/16 Мария Gudino PharmD [address] [place] [address] Pharmacist Internal Medicine 04/29/23 documented as of this encounter
--- OUTSIDE RECORDS SUMMARY | 2025-03-18 15:29 | XMS_ITS | Encounter Summary ---
Author Organization [employer] Address [address] [place] [address] 7 [place] [address] Care Team Providers Care Sales Representative Printing Paper Name Role Phone Name, Charbel CARRILLO Primary Care Provider [phone] Мария Gudino PharmD Unavailable [phone] Reason for Referral * Consultation (Routine) - Pending Review Specialty Diagnoses / Procedures Referred By James ivey Referred To Contact Cardiology Diagnoses Preop examination Angela Silveira FNP [address] [place] [address] Phone: tel: fax: Referral ID Status Reason Start Date Expiration Date Visits Requested Visits Authorized [id number] Pending Review Specialty Services Required 03/18/2025 03/18/2026 1 1 Encounter Details Date Type Department Care Team (Late st Contact Info) Description 03/18/2025 2:00 PM EDT Office Visit [facility] [address] [place] [address] Angela Silveira FNP [address] [place] [address] Type 2 diabetes mellitus with chronic kidney disease, with long-term current use of insulin, unspecified CKD stage (CMS/HCC) (Primary Dx); Preop examination Social History Tobacco Use Types Packs/Day Years [...] AM EDT documented as of this encounter Last Filed Vital Signs Vital Sign Reading [...] Mass Index 31.14 03/18/2025 2:40 PM EDT documented in this encounter Plan of Treatment Upcoming Encounters Date Type Department Care Team (Late st Contact Info) Description 05/10/2025 3:45 PM EDT Office Visit [facility] [address] [place], [place] [phone] Name, MD Charbel [address] [place] [address] Scheduled Orders Name Type Priority Associated Diagnoses Orde r Schedule hCG, Total, Quantitative Lab Routine Preop examination Expected: 03/18/2025 (Approximate), Expires: 03/17/2026 HIV-1/2 Antigen and Antibodies, Fourth Generation, with Reflexes Lab Routine Preop examination Expected: 03/18/2025 (Approximate), Expires: 03/17/2026 CBC auto differential Lab Routine Preop examination Expected: 03/18/2025 (Approximate), Expires: 03/17/2026 Comprehensive Metabolic Panel Lab Routine Preop examination Expected: 03/18/2025 (Approximate), Expires: 03/17/2026 Partial Thromboplastin Time, Activated (APTT) Lab Routine Preop examination Expected: 03/18/2025, Expires: 03/17/2026 Hemoglobin A1c Lab Routine Preop examination Expected: 03/18/2025 (Approximate), Expires: 03/17/2026 Urinalysis Complete Lab Routine Preop examination Expected: 03/18/2025, Expires: 03/17/2026 XR Chest 2 Views Imaging Routine Preop examination Expected: 03/18/2025, Expires: 03/17/2026 Scheduled Referrals Name Type Priority Associated Diagnoses Orde r Schedule Referral to Cardiology Outpatient Referral Routine Preop examination Expected: 03/18/2025 (Approximate), Expires: 03/17/2026 documented as of this encounter Goals Goal Patient Goal Type Associated Problems Recent Progress Patient-Stated? Author Record your blood pressure once per day Blood Pressure No Мария Gudino PharmD Blood Pressure < 140/90 Blood Pressure [...] use of insulin, unspecified CKD stage (CMS/HCC) documented in this encounter Results * POCT Glucose (03/18/2025 2:43 PM EDT) Glucose Blood, POC 88 60 - 200 mg/dL QC Media Lot # [id number] Lot# Expiration Date Blood Capillary blood specimen / Unknown 03/18/2025 2:43 PM EDT Angela Okhipo STRIPPER CUTTER MACHINE POINT OF CARE TEST ENTER/EDIT ORDERABLES Final Result documented in this encounter Visit Diagnoses Diagnosis Type 2 diabetes mellitus with chronic kidney disease, with long-term current use of insulin, unspecified CKD stage (CMS/HCC)- Primary Preop examination Unspecified pre-operative examination documented in this encounter Additional Health Concerns Assessment Noted Time PHQ-9 Depression Total Score: 0 03/22/20 24 1:45 PM EDT documented as of this encounter Care Teams Sales Representative Printing Paper Relationship Specialty Start Date End Date Name, MD Charbel [address] [place] [address] PCP - General Family Medicine 02/26/16 Мария Gudino PharmD [address] [place] [address] Pharmacist Internal Medicine 04/29/23 documented as of this encounter
--- OUTSIDE RECORDS SUMMARY | 2025-03-18 15:29 | XMS_ITS | Encounter Summary ---
Author Organization [employer] Address [address] [place] [address] [address] [place] [address] Care Team Providers Care Production Packager Name Role Phone Name, Charbel CARRILLO Primary Care Provider [phone] Мария Gudino PharmD Unavailable [phone] Reason for Visit * Reason Onset Date Comments Nurse Triage 03/03/2025 Encounter Details Date Type Department Care Team ([facility] st Contact Info) Description 03/03/2025 Telephone [facility] [address] [place], [place] [id number] Name, MD Charbel [address] [place] [address] Nurse Triage Social History Tobacco Use Types Packs/Day Years [...] the past 12 months, has t he [employer], gas, oil or water [employer] threatened to shut off services in your [...] encounter Miscellaneous Notes * Telephone Encounter - Trena Washington - 03/03/2025 4:21 PM EDT Tc from pt returning call. 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 . Pt provided wi hours pt verbalized understanding and had no further questions. * Telephone Encounter - Jackie Tucker RN - 03/03/2025 10:06 AM EDT Tc to pt reports their neck is swollen and they cannot move it. Pt advised to come into wic to be evaluated immediately. Pt reports they notice neck pain on Friday that has been persistent. Pt reports this radiates their mid back and shoulders. Pt reports they wake up with a shoulder everyday. Pt states this neck pain has been chronic for them and they would like an MRI done. Pt reports they have been taking their pain medications as rx, doing physical therapy and their has been no improvementto their pain. Pt reports they are unable to do low impact exercise do to their conditions. Pt states they went to [facility] and report they refuse to do the injection in their neck due to insurance will not cover and pt needs to trial medications first. Pt went to DR. LEON for surgery who reports based off of their conditions they cannot do surgery as well. Advised pt perPCP Patient is complaining of exacerbation of chronic neck pain. 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 Some of the pain is related to her recent surgeries for carpal tunnel syndrome and cubital tunnel syndrome on the right arm. 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 . Pt provided wic hours, ED precautionsreviewed and message forwarded to PCP as an FYI. * Telephone Encounter - Ann-Marie Carroll RN - 03/03/2025 8:53 AM EDT Called pt. No answer. Pt called RE: Requesting MRI of neck due to [facility] are telling pt. She has arthritis but she believes there is something worse going on with neck and is requesting MRI of Neck. No answer and unable to leave voicemail as mailbox is full. Will send note to team nurse so that another call to reach pt. Can be attempted. * Telephone Encounter - Iram Willoughby - 03/03/2025 8:20 AM EDT Tc from pt stating had neck pain for three days. Pt states is waiting for a new MRI order because visited [facility] and they states that it is arthritis in the neck, which the PT disagrees with. Pt says that the pain and discomfort in the area are not normal. documented in this encounter Plan of Treatment Upcoming Encounters Date Type Department Care Team (Late st Contact Info) Description 05/10/2025 3:45 PM EDT Office Visit [facility] MED[facility]INE [address] [place] [address] Name, MD Charbel [address] [place] [address] documented as of this encounter Goals Goal [...] documented as of this encounter Care Teams Production Packager Relationship Specialty Start Date End Date Name, [place] [address] PCP - General Family Medicine 02/26/16 Puia, Мария, PharmD [address] [place] [id number] Pharmacist Internal Medicine 04/29/23 documented as of this encounter
--- OUTSIDE RECORDS SUMMARY | 2025-03-18 15:29 | XMS_ITS | Encounter Summary ---
Author Organization [employer] Address [address] [place] [address] 7 [place] [address] Care Team Providers Care First Beater Name Role Phone Name, Charbel CARRILLO Primary Care Provider [phone] Мария Gudino PharmD Unavailable [phone] Reason for Visit * Reason Comments Med Refill Encounter Details Date Type Department Care Team ([facility] st Contact Info) Description 01/07/2025 Refill [facility] [address] [place], [place] [phone] Name, MD Charbel [address] [place] [address] Vomiting and diarrhea Social History Tobacco Use [...] Description 05/10/2025 3:45 PM EDT Office Visit [facility] MED[facility]INE [address] [place] [phone] Name, MD Charbel [address] [place] [id number] documented as of this encounter Goals Goal [...] documented as of this encounter Care Teams First Beater Relationship Specialty Start Date End Date Name, MD Charbel [address] [place] [address] PCP - General Family Medicine 02/26/16 Мария Gudino PharmD [address] [place] [address] Pharmacist Internal Medicine 04/29/23 documented as of this encounter
--- OUTSIDE RECORDS SUMMARY | 2025-03-18 15:29 | XMS_ITS | Encounter Summary ---
Author Organization [employer] Address [address] [place] [address] 7 [place] [address] Care Team Providers Care Chronometer Tester Name Role Phone Name, Charbel CARRILLO Primary Care Provider [phone] Мария Gudino PharmD Unavailable [phone] Reason for Visit * Reason Onset Date Comments Chart Prep 03/16/2025 Encounter Details Date Type Department Care Team ([facility] st Contact Info) Description 03/16/2025 Telephone [facility] MEDICINE [address] [place] [address] Veronica Harkins MA Chart Prep Social History Tobacco Use Types Packs/Day Years [...] encounter Miscellaneous Notes * Telephone Encounter - Veronica Harkins MA - 03/16/2025 11:41 AM EDT Chart Prep Labs: done Images: done Referrals: not applicable Vaccines due: Covid Screenings: eye exam, foot exam, and HIV, Cervical cancer, Lipid panel Overdue care gaps: SBIRT, PHQ-9, Disability screen, and Tobacco documented in this encounter Plan of Treatment Upcoming Encounters Date Type Department Care Team (Late st Contact Info) Description 05/10/2025 3:45 PM EDT Office Visit [facility] MEDICINE [address] [place] [address] Name, MD Charbel [address] [place] [address] documented as of this encounter Goals Goal Patient Goal Type Associated Problems Recent Progress Patient-Stated? Author Record your blood pressure once per day Blood Pressure No Мария Gudino, PharmD Blood Pressure < 140/90 Blood Pressure 137/92(2024 2:40 PM EDT) No Мария Gudino PharmD Patient [...] documented as of this encounter Care Teams Chronometer Tester Relationship Specialty Start Date End Date Name, MD Charbel [address] [place] [address] PCP - General Family Medicine 02/26/16 Мария Gudino PharmD [address] [place] [address] Pharmacist Internal Medicine 04/29/23 documented as of this encounter
--- OUTSIDE RECORDS SUMMARY | 2025-03-18 15:29 | XMS_ITS | Encounter Summary ---
Author Organization [employer] Address [address] [place] [address] 7 [place] [address] Care Team Providers Care Awning Spreader Name Role Phone Name, Charbel CARRILLO Primary Care Provider [phone] Мария Gudino PharmD Unavailable [phone] Reason for Visit * Reason Onset Date Comments Appointment Request 01/13/2025 Encounter Details Date Type Department Care Team ([facility] st Contact Info) Description 01/13/2025 Telephone [facility] MED[facility]INE [address] [place], [place] [phone] Name, MD Charbel [address] [place] [address] Appointment Request Social History Tobacco Use Types [...] the past 12 months, has t he [employer], gas, oil or water [employer] threatened to shut off services in your [...] 05/10/2025 3:45 PM EDT Office Visit [facility] MED[facility]INE [address] [place] [address] Name, MD Charbel [address] [place] [address] documented as of this encounter Goals Goal [...] documented as of this encounter Care Teams Awning Spreader Relationship Specialty Start Date End Date Name, MD Charbel [address] [place] [address] PCP - General Family Medicine 02/26/16 Мария Gudino PharmD [address] [place] [address] Pharmacist Internal Medicine 04/29/23 documented as of this encounter
--- OUTSIDE RECORDS SUMMARY | 2025-03-18 15:29 | XMS_ITS | Encounter Summary ---
Author Organization [employer] Address [address] [facility] 7 [place] [address] Care Team Providers Care Bowl Topper Name Role Phone Name, Charbel CARRILLO Primary Care Provider [phone] Мария Gudino PharmD Unavailable [phone] Encounter Details Date Type Department Care Team ([facility] st Contact Info) Description 09/24/2023 Abstract [facility] MEDICINE [address] [place], [place] [phone] Name, MD Charbel [address] [place] [address] Social History Tobacco Use Types Packs/Day Years [...] Description 05/10/2025 3:45 PM EDT Office Visit [facility] MED[facility]INE [address] [place] [phone] Charbel Lyons MD [address] [place] [address] documented as of this encounter Goals Goal [...] documented as of this encounter Care Teams Bowl Topper Relationship Specialty Start Date End Date Charbel Lyons MD [address] [place] [address] PCP - General Family Medicine 02/26/16 Puia, Мария, PharmD [address] [place] [phone] Pharmacist Internal Medicine 04/29/23 documented as of this encounter
--- OUTSIDE RECORDS SUMMARY | 2025-03-18 15:30 | XMS_ITS | Data Portability ---
Author Organization RAGHAV [facility], [facility] Address [address] [place] [address] Care Team Providers Care Slate Handler Name Role Phone NAME, HUBERT Referring Provider [...] tunnel release (SURG) 2023 025 [place] 15 [facility], [address] [place], [address], 01/14/202 5 11:50:41 Imaging XR, wrist, 2 view - 2V LT TMJ, F/U, RM 116 2023 024 [facility] Office, [address], [place], [address], 4 11:11:20 Medication Orders None recorded. Patient [...] a4ajBk vP9nXo QUaueC m3YtLR FvZlgJ JJ8mAn HZtai3 4n1734 AC0Kqa X6CUKO hKiQtr MwF INTERFACE [facility] [address], [place], [address], 10/08/2024 11:11:21 10/08/20 24 10/08/2024 XR, wrist , 2 view http:/ [email or web address]:[email or web address] ?Encry pted=s hAaTro YD8dLq bEUv6g %2BXZw aYqtaq 0bqfl% 2Fg9IQ a4ajBk vP9nXo QUaueC m3YtLR FvZlgJ JJ8mAn HZtai3 9j5585 AC0Kqa X6CUKO hKiQtr MwF INTERFACE [facility] [address], [place], [address], 10/08/2024 11:11:23 Result Notes None recorded. Problems Name Problem SNOMED Code Status Onset Date Resolution Date Notes Provider Name and Address Organization Details Recorded Time No complaints 670550737 Active Status : 'A'; Not Available [facility] 4 09:11:19 Carpal tunnel syndrome of right wrist 6274944538184 08 Active 2024 Dylan Stanford PA-C [address], [place], [address] , [facility] 5 11:43:11 Entrapment of right ulnar nerve at elbow 6211098962 Active 2024 Dylan Stanford PA-C [address], [place], [address] , [facility] 5 11:43:11 Impingemen t syndrome of right shoulder region 0866753065964 02 Active 2023 Gloria Sullivan PA-C [address], [place], [address] , [facility] 4 12:36:41 Neck pain 01362233 Active 2023 Gloria Sullivan PA-C [address], [place], [address] , [facility] 4 12:36:45 Problem Notes None recorded. Procedures Surgical History Date Name Laterality Status Provider Name and Address Organization Details Recorded Time 5 [facility] completed Clarence Lopez MD [address], [place], [address], [facility] 02/23/2025 13:08:04 4 [facility] completed Clarence Lopez MD [address], [place], [address], [facility] 10/09/2024 13:06:55 4 77928 Therapeutic Exercise (1:1) completed Rashid Chen, HOME SCHOOL COORDINATOR [address], [place], [address], [facility] 08/06/2024 13:57:40 4 87870: Hot or Cold Pack completed Rashid Chen, HOME SCHOOL COORDINATOR [address], [place], [address], [facility] 08/06/2024 13:57:40 4 Sports Knee 4&1 completed William Hutchins MD [address], [place], [address], [facility] 08/08/2024 15:45:17 4 08164 Therapeutic Exercise (1:1) completed Rashid Hatchos, HOME SCHOOL COORDINATOR [address], [place], [address], [facility] 07/30/2024 13:44:11 4 74811: Hot or Cold Pack completed Rashid Hatchos, HOME SCHOOL COORDINATOR [address], [place], [address], [facility] 07/30/2024 13:47:22 4 19839 Therapeutic Exercise (1:1) completed Rashid Gustavo, HOME SCHOOL COORDINATOR [address], [place], [address], [facility] 07/22/2024 14:04:46 4 73355: Manual therapy completed Rashid Gustavo, HOME SCHOOL COORDINATOR [address], [place], [address], [facility] 07/22/2024 14:04:46 4 05555 Therapeutic Exercise (1:1) completed Rashid Gustavo, HOME SCHOOL COORDINATOR [address], [place], [address], [facility] 07/20/2024 13:40:04 4 75673: Manual therapy completed Rashid Chen, HOME SCHOOL COORDINATOR [address], [place], [address], [facility] 07/20/2024 13:40:04 4 40239 Therapeutic Exercise (1:1) cancelled Kevin Cullen, PT [address], [place], [address], [facility] 07/15/2024 06:59:17 4 98001: Manual therapy cancelled Kevin Cullen, PT [address], [place], [address], [facility] 07/15/2024 06:59:17 4 09173 Therapeutic Exercise (1:1) completed Rashid Chen HOME SCHOOL COORDINATOR [address], [place], [address], [facility] 07/06/2024 14:33:33 4 99853: Manual therapy completed Rashid Chen HOME SCHOOL COORDINATOR [address], [place], [address], [facility] 07/06/2024 14:33:38 4 52275 Therapeutic Exercise (1:1) completed Rashid Chen HOME SCHOOL COORDINATOR [address], [place], [address], [facility] 07/02/2024 14:31:30 4 17252: Manual therapy completed Rashid Chen PTA [address], [place], [address], [facility] 07/02/2024 14:31:47 4 51658 Therapeutic Exercise (1:1) completed Kevin Cullen, PT [address], [place], [address], [facility] 06/30/2024 15:07:16 82026: Low complexity PT Eval completed Kevin Cullen, PT [address], [place], [address], [facility] 06/30/2024 15:07:19 Imaging Results Imaging Date Name Status LastModified by Organiz ation Details LastModified Time 10/08/2024 XR, wrist, 2 view completed INTERFACE [facility] [address], [place], [address], 10/08/2024 11:11:21 10/08/2024 XR, wrist, 2 view completed INTERFACE [facility] [address], [place], [address], 10/08/2024 11:11:23 Procedure Notes None recorded. Medical Equipment None Reported. Allergies Allergen ID Allergen Name Allergen Category Reaction Reaction Severity Criticality Documentation Date Start Date Code Code System Note Provider Name and Address Organization Details Recorded Time 90150 Product containin g penicilli n (product) medicatio n Not available Not available Not available 01/19/20242002 97067 8001 SNOMED Aller gyRea ction : 'NO SYMPT OM SPECI FIED' ; Not Available [facility] 4 10:54:25 87079 Naprosyn medicatio n Not available Not available Not available 01/19/20242014 2 RxNorm Aller gyRea ction : 'Naus ea/Vo mitin g/Lili rrhea '; Not Available [facility] 4 10:54:25 51629 latex environme nt,medica tion Not available Not available Not available 01/19/20242003 88888 91 RxNorm Aller gyRea ction : 'Skin React ion'; Not Available [facility] 4 10:54:25 82335 renan allergeni c extract food,medi cation Not available Not available Not available 01/19/20242021 67532 04 RxNorm Not Available [facility] 4 10:54:25 07809 Tylenol medicatio n Not available Not available Not available 01/19/20242021 34006 3 RxNorm Not Available [facility] 4 10:54:25 62969 ibuprofen medicatio n Not available Not available Not available 01/19/20242021 5640 RxNorm Not Available [facility] 4 10:54:25 55166 iodine medicatio n Not available Not available Not available 01/19/20242021 5933 RxNorm Not Available [facility] 4 10:54:25 43775 Shellfish (substanc e) food,medi cation Not available Not available Not available 01/19/20242021 31560 9006 SNOMED Not Available [facility] 4 10:54:25 Medications Name Sig Start Date [...] Not Available Not Available Not Available FreeStyle [place] Lite kit TEST BLOOD SUGAR THREE TIMES [...] Not Available No t Available Artificial Tears (va650-hxod omell-glyce rin) 1 %-0.2 %-0.2 % eye [...] Updated DateTime 09/27/2024 165.1 cm 28.3 kg/m2 97595.7 g MALINI [facility] 09/27/2024 13:06:37 Date Recorded Body height Body mass index (BMI) Body weight Provider Name and Address Organization Details Last Updated DateTime 10/08/2024 165.1 cm 28.3 kg/m2 61921.7 g MALINI COLEMAN [facility] 10/08/2024 10:38:46 Date Recorded Body height Body mass index (BMI) Body weight Provider Name and Address Organization Details Last Updated DateTime 12/14/2024 165.1 cm 28.3 kg/m2 94040.7 g Dipti bennett [facility] 12/14/2024 14:10:24 Date Recorded Body height Body mass index (BMI) Body weight Provider Name and Address Organization Details Last Updated DateTime 01/12/2025 165.1 cm 28.3 kg/m2 19962.7 g MALINI COLEMAN [facility] 01/12/2025 14:46:19 Date Recorded Body height Body mass index (BMI) Body weight Provider Name and Address Organization Details Last Updated DateTime 02/23/2025 165.1 cm 28.3 kg/m2 13616.7 g MALINI COLEMAN [facility] 02/23/2025 11:55:02 Social History Question Answer Notes LastModified by Organizat ion Details LastModified Time Tobacco Smoking Status Never Smoker ORESTES padilla [facility] 04/29/2024 16:49:14 What Is Your Level Of [...] Disease N Heart Trouble N Heart Attack (DE) N Gastrointestinal Disease Y Cholesterol Y Diabetes [...] SNOMED-CT Code Diagnosis ICD10 Code Diagnosis Note [id number] BERYL [facility] [address] [place] [address] 03/11/2024 14:23:48 03/25/2024 12:18:00 Pain of left knee region 5564833857 56404 M25.562 Contusion of left knee 4903624010 9152060 S80.02XD [id number] BERYL Slade [address] [place] [address] 03/17/2024 12:59:12 03/30/2024 10:59:28 Pain of right knee joint 9004765692 21085 M25.561 Osteoarthr itis of right knee joint 9875270549 88713 M17.11 [id number] MD Yudi Shahid [address] [place] [address] 03/30/2024 14:57:25 04/09/2024 12:11:46 Pain of right knee joint 2888632391 00038 M25.388 [id number] BERYL Navarro [address] [place] [address] 04/01/2024 09:55:09 04/15/2024 09:23:33 Pain of right shoulder joint 2377920256 2701253 M25.511 Impingemen t syndrome of right shoulder region 6747345480 91619 M75.41 Neck pain 77633784 M54.2 [id number] Abiodun Robles MD [facility] [address] [place] [address] 04/30/2024 10:47:39 05/21/2024 15:38:34 Impingement syndrome of right shoulder region 5853190752 96340 M75.41 [id number] Gloria Sullivan PA-C [facility] [address] [place] [address] 05/31/2024 13:58:05 06/15/2024 16:02:00 Impingement syndrome of right shoulder region 0961286222 45104 M75.41 [id number] Clarence Lopez MD [facility] [address] [place] [address] 06/21/2024 10:45:36 07/16/2024 08:12:46 Ulnar nerve entrapment at elbow 663345307 G56.21 Carpal july omar syndrome of right wrist 3616042483 77629 G56.01 [id number] Kevin Cullen, PT [facility] [address] [place] [address] 06/30/2024 13:50:17 06/30/2024 15:21:35 Tendinitis of right shoulder 4124543145 992586 M75.91 [id number] Gloria Sullivan PA-C [facility] [address] [place] [address] 07/01/2024 13:48:28 07/21/2024 10:15:42 Postoperative care 052819104 Z48.89 [id number] Rashid Chen HOME SCHOOL COORDINATOR [facility] [address] [place] [address] 07/02/2024 13:46:11 07/02/2024 14:33:13 Tendinitis of right shoulder 8400335314 431625 M75.91 [id number] Rashid Chen PTA [facility] [address] [place] [address] 07/06/2024 13:38:15 07/06/2024 17:20:16 Tendinitis of right shoulder 6004521839 981414 M75.91 [id number] Rashid Gustavo, HOME SCHOOL COORDINATOR [facility] [address] [place] [address] 07/20/2024 13:36:29 07/20/2024 14:54:17 Tendinitis of right shoulder 7661806576 117941 M75.91 [id number] Rashid Chen HOME SCHOOL COORDINATOR [facility] [address] [place] [address] 07/22/2024 13:53:19 07/22/2024 15:05:38 Tendinitis of right shoulder 4001312954 274668 M75.91 [id number] Rashid Chen HOME SCHOOL COORDINATOR [facility] [address] [place] [address] 07/30/2024 12:54:12 07/30/2024 15:13:09 Tendinitis of right shoulder 7081849582 080881 M75.91 [id number] William Hutchins MD [facility] [address] [place] [address] 08/02/2024 13:45:51 08/24/2024 08:18:51 Pain of right knee joint 2043522939 04351 M25.713 [id number] Rashid Chen PTA [facility] [address] [place] [address] 08/06/2024 13:48:35 08/06/2024 14:48:41 Tendinitis of right shoulder 7557074465 366140 M75.91 [id number] MD [facility] [address] [place] [address] 09/27/2024 12:57:16 10/26/2024 11:57:59 Entrapment of right ulnar nerve at elbow 1927556032 G56.21 Carpal july omar syndrome of right wrist 8551392564 95432 G56.01 [id number] MD [facility] [address] [place] [address] 10/08/2024 10:29:26 11/08/2024 10:20:09 Pain of left wrist 3019231603 09002 M25.532 Arthritis of first carpometacarpal joint of left hand 3941150178 057767 M18.12 [id number] Dylan Stanford PA-C [facility] [address] [place] [address] 12/14/2024 14:00:06 01/05/2025 14:16:07 Entrapment of right ulnar nerve at elbow 1613638573 G56.21 Carpal july omar syndrome of right wrist 0512916203 51549 G56.01 [id number] [facility] [address] [place] [address] 01/12/2025 14:37:44 01/27/2025 17:55:31 Entrapment of left ulnar nerve at elbow 2121178141 G56.22 Carpal july omar syndrome of left wrist 3416172035 17599 G56.02 [id number] MD MIKE G[facility]ola [facility] [address] [place] [address] 02/23/2025 11:37:23 03/09/2025 11:20:57 Arthritis of first carpometacarpal joint of left hand 4883487805 333946 M18.12 Health Concerns Section Related Observation LastModified by Organization Detai ls LastModified Time None Recorded Concern Status LastModified by Organization Details LastModified Time None Recorded Advance Directives Directive None Recorded Payers Encounter Date Sequence Insurance Name Policy Number Policy Cifuentes Covered Member ID Cifuentes Member ID Guarantor Name 09/27/2024 1 [place] [facility] Sade Izaguirre [id number] Sade Izaguirre 10/08/2024 1 [place] [facility] Sade Izaguirre [id number] Sade Izaguirre 12/14/2024 1 [place] [facility] Sade Izaguirre [id number] Sade Izaguirre 01/12/2025 1 [place] [facility] Sade Izaguirre [id number] Sade Izaguirre 02/23/2025 1 [place] [facility] Sade Izaguirre [id number] Sade Izaguirre Notes Date Note Type Note [...] consented to the procedure. Clarence Lopez MD [address] [place] [address] [address], [place], [address], [facility] 09/27/2024 16:30:03 10/08/2024 text/html DIAGNOSIS: Left 1st [...] X-rays ordered, obtained, and reviewed today at [facility]: PA and lateral left TM joint revealed [...] Clarence Lopez M.D. Clarence Lopez MD [address], [place], [address], [facility] 10/09/2024 13:07:51 12/14/2024 text/html I am seeing [...] or drainage reported. Dylan Stanford PA-C [address], [place], [address], [facility] 12/14/2024 14:29:59 01/12/2025 text/html Diagnosis: Statu s [...] directed. Clarence Lopez MD [address] [facility] [address], [place], [address], [facility] 01/15/2025 15:00:08 02/23/2025 text/html DIAGNOSIS: Left 1st [...] Lopez MD [address], [place], [address], [facility] 02/23/2025 13:08:31 OBGyn Episode No OBEpisode recorded.
--- OUTSIDE RECORDS SUMMARY | 2025-03-18 15:30 | XMS_ITS | Encounter Summary ---
Author Organization [facility] Address [address] [place] [address] 7 [place] [address] Care Team Providers Care Retail Account Representative Name Role Phone Name, Charbel CARRILLO Primary Care Provider [phone] Мария Gudino PharmD Unavailable [phone] Reason for Visit * Reason Comments Med Refill Encounter Details Date Type Department Care Team ([facility] Contact Info) Description 02/10/[address] [facility] MEDICINE [address] [place], [place] [phone] Name, MD Charbel [address] [place] [address] Social History Tobacco Use Types Packs/Day Years [...] Upcoming Encounters Date Type Department Care Team ([facility] Contact Info) Description 05/10/2025 3:45 PM EDT Office Visit [facility] MEDICINE [address] [facility] [place] [address] Name, MD Charbel Nasreen [facility] [place] [address] documented as of this encounter Visit Diagnoses Not on filedocumented in this encounter Additional Health Concerns Assessment Noted Time PHQ-9 Depression Total Score: 0 10/23/20 22 3:25 PM EST documented as of this encounter Care Teams Retail Account Representative Relationship Specialty Start Date End Date Name, MD Charbel Nasreen [facility] [place] [address] PCP - General Family Medicine 02/26/16 Мария [place] [address] Pharmacist Internal Medicine 04/29/23 documented as of this encounter
--- OUTSIDE RECORDS SUMMARY | 2025-03-18 15:30 | XMS_ITS | Clinical Summary ---
Author Organization [facility] Address [address] [place] [address] Phone Care Team Providers Care Financial Institution Vice President Name Role Phone Unavailable Primary Care Provider [...] Used to be seen for PM at [facility], got injections, not better, ref to [...] on 09 January 2016 14:38 Encounter info: [id number], GARCIA MRI [facility], [facility], 01/08/2016 - 01/15/2016 * Final Report * Reason For Exam rt shoulder pain RCT;rt shoulder pain RCT RESULT: MRI Joint Ext Upper W/O Contrast Right [facility] VISIT NUMBER :[id number] Patient Name : Sade Izaguirre Date of : 1970 Date of Exam : 01/08/2016 Referring Physician : GINA CROFT [address], Attn: [place] [address] Exam : MR - SHOULDER (C-) CPT 58362 - RIGHT Room Description : [facility] Espr 2 1.5 Technique : Ax [...] 02/05/2023 08/21/2023 Overview (08/21/2023): Severe, follows at [facility] Was told too young for TKR Coronary [...] 08/01/2021 08/01/2021 Overview (08/01/2021): MRI done at [facility] 11.15.14 Shoulder pain 08/01/2021 08/01/2021 Overview (08/01/2021): Used to be seen for PM at [facility], got injections, not better, ref to [...] on 09 January 2016 14:38 Encounter info: [id number], [facility] MRI [facility], 01/08/2016 - 01/15/2016 * Final Report * Reason For Exam rt shoulder pain RCT;rt shoulder pain RCT RESULT: MRI Joint Ext Upper W/O Contrast Right [facility] VISIT NUMBER :[id number] Patient Name : Sade Izaguirre Date of : 1970 Date of Exam : 01/08/2016 Referring Physician : GINA CROFT [address], Attn: [place] [address] Exam : MR - SHOULDER (C-) CPT 98882 - RIGHT [facility] : Ax PD [...] Overview (08/17/2024): BILATERAL MAMMOGRAM SCREENING DONE AT [facility] WAS SENT TO [...] Discontinued 04/01/2023, 05/30/2009 Insurance [place]
--- OUTSIDE RECORDS SUMMARY | 2025-03-18 15:30 | XMS_ITS | Continuity of Care Document ---
Author Organization [facility] ter Address [address] [place] [address]- Care Team Providers Care Rod Cup Filler Name Role Phone Name Charbel CARRILLO Primary Care Physician [phone] Encounter [facility] Date(s): 01/06/25 - 03/17/[address] [address] Attending Physician: Rashid Lopez MD Admitting Physician: aRshid Lopez MD Encounter Type: Preadmit Daystay Allergies, Adverse Reactions, Alerts Substance Criticality Severity Reaction Reaction Severity Status iodine shortness of breath Active acetaminophen 1 Acid reflux Ac tive penicillins Anaphylaxis Active Latex Anaphylaxis Active shellfish Anaphylaxis Active Advil 2 GI bleeding Active Contrast Dye Unable to assess criticality Persistent Moderate itchy hives Active Lobster swelling in mouth and body Active Shrimp swelling in mouth and body Active Other Food Allergy shrimp an d lobster allergy- swelling in mouth and body passion fruit shells Active metFORMIN Kidney failure Activ e NSAIDs [...] 11:54:00 AM EDT, Route to Pharmacy Electronically, [facility] #[id number], Partial fill upon patient request if the [...] 8:39:00 AM EST, Route to Pharmacy Electronically, [facility] #[id number], Partial fill upon patient request if the [...] Maintenance, 06/30/23 12:54:00 PM EDT, EC Tablet, [facility] #[id number], Partial fill upon patient request if the [...] Refills, Maintenance, 02/10/23 1:47:00 PM EDT, Injection, [facility] #[id number], Partial fill upon patient request if the [...] 8 Refills, Maintenance, 08/25/23 7:46:00 AM EDT, [facility], 165, cm, 08/20/23 22:41:00 EDT, Height, 76, kg, 08/20/23 22:41:00 EDT, Dry Weight Start Date: 08/25/23 Status: Ordered Quantity: 30.0 Unit: tablet Repeat number: 1 Lantus Solostar Pen 100 units/mL subcutaneous solution = 34 units, Subcutaneous Injection, Daily in AM, # 30 mL, 5 Refills, Maintenance, 02/10/23 1:47:00 PM EDT, Injection, [facility] #[id number], Partial fill upon patient request if the [...] Status: Ordered Repeat number: 1 nystatin-triamcinolone topical 275248 u/gm-0.1% ointment 1 application, Topically, 2 times [...] Maintenance, 06/22/24 9:34:00 AM EDT, Solution, [facility], Partial fill upon patient request [...] Team Personnel Name: Tracie Jaramillo RN Position: [facility] RN Member Role: Primary Care Nurse Name: Kb MEYER, Dionne Chance Position: [facility] Associate Professional Member Role: Primary Care Nurse Name: Santos NUNN, Tamar Almazan Position: [facility] Onco RN Member Role: Primary Care Nurse Name: Brennon Peralta RN Position: [facility] Hospital Dosier Operator Member Role: Primary Care Nurse Name: Charbel Lyons MD Position: [facility] Outreach Member Role: PCP Address: [address] [place] [address]- Telecom: Name: Ginny St Position: [facility] Outreach Member Role: Lifetime Consulting Physician Name: Claudia Urbina RN Position: [facility] AMB Nurse Member Role: Primary Care Nurse Name: Osiel Glynn MD Position: [facility] Renal MD Member Role: Lifetime Consulting Physician Address: [address] [place], [place] [id number] [facility] [place] [address]- Telecom: Name: Amy Foster RN Position: [facility] RN Member Role: Primary Care Nurse Care Team Related Persons Name: BALJEET MILAN Name: JOELLEN WHYTE Insurance Providers Guarantor name: SIMON MILAN Health Plan Information #: 1 Payer: [employer] Member Number: [id number] Policy Number: NA Group Number: NA Health Plan Information #: 2 Payer: [employer] Member Number: [id number] Policy Number: NA Group Number: NA
[2025-03-18 17:44] LABS: MANUAL DIFF FLAG NO
[2025-03-18 17:53] LABS: Appearance Urine Clear; Color Urine Yellow; Glucose Urine UA Negative (Negative); Leukocyte Esterase Urine Trace (Negative); Nitrite Urine Negative (Negative); PH 6.5 (5.0-9.0); Specific Gravity - Urine <= 1.005 (1.005-1.025); UMIC TRIGGER UA YES; Urine Blood Negative (Negative); Urine Ketones Negative (Negative); Urine Protein Negative (Neg-Trace)
[2025-03-18 17:56] LABS: Basophils Absolute Auto 0.1 X10*3/uL (0.0-0.2); Basophils Percent Auto 0.8 % (0-2); Eosinophils Absolute Auto 0.1 X10*3/uL (0.0-0.4); Hematocrit 40.1 % (37.0-47.0); Hemoglobin 12.4 g/dl (12.0-16.0); Imm Gran Abs Auto 0.01 X10*3/uL (0.00-0.03); Imm Gran Pct Auto 0.1 % (0.0-0.4); Lymphocytes Absolute Auto 3.7 X10*3/uL (1.2-4.9); Lymphocytes Percent Auto 52.2 % (20-40); Mean Corpuscular HGB Conc 30.9 g/dl (31.0-35.0); Mean Corpuscular Hemoglobin 24.5 pg (27.0-33.0); Mean Corpuscular Volume 79.1 fL (80.0-98.0); Mean Platelet Volume 11.2 fL (9.4-12.3); Monocytes Absolute Auto 0.5 X10*3/uL (0.1-1.2); Neutrophils Absolute Auto 2.7 x10*3/uL (2.0-8.3); Neutrophils Percent Auto 37.9 % (45-73); Platelet Count 261 X10*3/uL (160-400); Red Blood Count 5.07 X10*6/uL (4.20-5.50); White Blood Count 7.2 X10*3/uL (4.8-10.8)
[2025-03-18 17:58] LABS: Bacteria Urine None Seen (None Seen); Hyaline Casts Urine 0-2 /LPF (0-2); RBC Urine 0-2 /HPF (0-2); Squamous Epithelial Cell Urine 0-2 /HPF (0-2); WBC Urine 0-5 /HPF (0-5)
[2025-03-18 18:00] LABS: Estimated Average Glucose 123 mg/dL; Hemoglobin A1C 136.7927 umol/L; Hemoglobin A1c % 5.9 % (<6.0); Total Hemoglobin (HGBA1C) 3322.1785 umol/L
[2025-03-18 18:12] LABS: Alanine Aminotransferase 22 U/L (0-31); Albumin Level 4.5 g/dL (3.5-5.0); Alkaline Phosphatase 95 U/L (39-117); Anion Gap 12 (12-20); Aspartate Amino Transferase 22 U/L (5-31); Bilirubin Total 0.7 mg/dL (0.0-1.0); Blood Urea Nitrogen 17 mg/dL (9-16); Calcium 9.8 mg/dL (8.4-10.2); Carbon Dioxide 28 mmol/L (22-29); Chloride 105 mmol/L (96-108); Estimated Glomerular Filt Rate > 60; Glucose Random 86 mg/dL (60-115); HCG Quantitative < 2 mIU/mL; Potassium 3.9 mmol/L (3.3-5.1); Sodium 141 mmol/L (135-145); Total Protein 7.4 g/dL (6.5-8.0)
[2025-03-21 04:44] LABS: HIV AB/AG Nonreactive (Nonreactive); HIV Num 1 0.05 S/CO (0.00-0.99)
== END 2025-03-18 15:28 | disposition home or self-care (01) ==
LOC: HO.HHCX 15:27
PROVIDERS: Visit Provider Nurse Practitioner Family
DX: Z01.818 Encounter for other preprocedural examination (principal)
CPT/HCPCS: 36415; 71046; 80053; 81001; 83036; 84702; 85025; 85730; 87389

== ENCOUNTER → 2025-03-18 15:27 | Outpatient (BNV) | payer MEDICAID, SELFPAY | PROVIDERS: Visit Provider Radiology Diagnostic Radiology | DX: Z41.1 Encounter for cosmetic surgery (principal) | CPT/HCPCS: 71046 ==

== ENCOUNTER 2025-03-18 15:39 | Outpatient (REF) | payer MEDICAID, SELFPAY ==
--- OUTSIDE RECORDS SUMMARY | 2025-03-18 15:42 | XMS_ITS | Encounter Summary ---
Author Organization [facility] Address [address] [place] [address] Care Team Providers Care Invas Tech Name Role Phone Name, Charbel CARRILLO Primary Care Provider Unavailabl e Community, Pcp Primary Care Provider Unavailabl e Name, Charbel CARRILLO Primary Care Provider Unavailabl e Name, Charbel CARRILLO Primary Care Provider Unavailabl e Community, Pcp Unavailable Unavailable Name, Charbel CARRILLO Unavailable Unavailable Encounter Details Date Type Department Care Team Description 03/02/2015 Chemical Analytical Sampler Report Medical Records [address] [place] [address] Ankush Torre Social History Tobacco Use Types Packs/Day Years Used Date Smoking Tobacco: Former Comments:quit 8 years ago Alcohol Use Standard Drinks/Week Comments No 0 (1 standard drink = 0.6 oz pur e alcohol) Sex Assigned at Date Recorded Not on file documented as of this encounter Plan of Treatment Not on file documented as of this encounter Visit Diagnoses Not on filedocumented in this encounter Care Teams Invas Tech Relationship Specialty Start Date End Date Name, MD Charbel PCP - General 09/04/06 03/26/15 [facility]cp PCP - General Internal Medicine 03/27/15 06/09/18 Charbel Lyons MD PCP - General Internal Medicine 06/10/18 06/10/18 Charbel Lyons MD PCP - General Internal Medicine 06/11/18 [facility], Pcp Internal Medicine 06/10/18 06/10/18 Charbel Lyons MD Internal Medicine 06/11/18 documented as of this encounter
--- OUTSIDE RECORDS SUMMARY | 2025-03-18 15:42 | XMS_ITS | Encounter Summary ---
Author Organization [facility] Address [address] [place] [address] Care Team Providers Care Brass Reclaimer Name Role Phone Name, Charbel CARRILLO Primary Care Provider Unavailabl e Community, Pcp Primary Care Provider Unavailabl e Name, Charbel CARRILLO Primary Care Provider Unavailabl e Name, Charbel CARRILLO Primary Care Provider Unavailabl e Community, Pcp Unavailable Unavailable Name, Charbel CARRILLO Unavailable Unavailable Encounter Details Date Type Department Care Team Description 11/22/2014 Rn Long Term Care Report Medical Records [address] [place] [address] William Hedrick MD Social History Tobacco Use Types Packs/Day [...] on filedocumented in this encounter Care Teams Brass Reclaimer Relationship Specialty Start Date End Date Eloy, MD Charbel PCP - General 09/04/06 03/26/15 [facility], Pcp PCP - General Internal Medicine 03/27/15 06/09/18 Charbel Lyons MD PCP - General Internal Medicine 06/10/18 06/10/18 Charbel Lyons MD PCP - General Internal Medicine 06/11/18 Community, Pcp Internal Medicine 06/10/18 06/10/18 Charbel Lyons MD Internal Medicine 06/11/18 documented as of this encounter
--- OUTSIDE RECORDS SUMMARY | 2025-03-18 15:42 | XMS_ITS | Encounter Summary ---
Author Organization [facility] Address [address] [place] [address] Care Team Providers Care Motor Generator Set Operator Name Role Phone Name, Charbel CARRILLO Primary Care Provider Unavailabl e Community, Pcp Primary Care Provider Unavailabl e Name, Charbel CARRILLO Primary Care Provider Unavailabl e Name, Charbel CARRILLO Primary Care Provider Unavailabl e Community, Pcp Unavailable Unavailable Name, Charbel CARRILLO Unavailable Unavailable Reason for Visit * Reason Onset Date Comments Knee Pain 06/24/2014 Encounter Details Date Type Department Care Team Description 06/24/[address] [address] Name, MD Charbel Knee Pain Social History Tobacco Use Types Packs/Day Years Used Date Smoking Tobacco: Former Comments:quit 4 years ago Alcohol Use Standard Drinks/Week Comments No 0 (1 standard drink = 0.6 oz pur e alcohol) Sex Assigned at Date Recorded Not on file documented as of this encounter Plan of Treatment Not on file documented as of this encounter Visit Diagnoses Not on filedocumented in this encounter Care Teams Motor Generator Set Operator Relationship Specialty Start Date End Date Charbel Lyons MD PCP - General 09/04/06 03/26/15 Community, Pcp PCP - General Internal Medicine 03/27/15 06/09/18 Charbel Lyons MD PCP - General Internal Medicine 06/10/18 06/10/18 Charbel Lyons MD PCP - General Internal Medicine 06/11/18 [facility], Pcp Internal Medicine 06/10/18 06/10/18 Charbel Lyons MD Internal Medicine 06/11/18 documented as of this encounter
--- OUTSIDE RECORDS SUMMARY | 2025-03-18 15:42 | XMS_ITS | Encounter Summary ---
Author Organization [facility] Address [address] [place] [address] Care Team Providers Care Awning Hanger Helper Name Role Phone Name, Charbel CARRILLO Primary Care Provider Unavailabl e Name, Charbel CARRILLO Unavailable Unavailable Reason for Visit * Reason Onset Date Comments Provider Call Back 09/04/2018 Encounter Details Date Type Department Care Team Description 09/04/2018 Telephone Pulmonology - [address] [place] [address] Hood Edgar MD Provider Call Back Social History Tobacco Use Types Packs/Day Years Used Date Smoking Tobacco: Former Alcohol Use Standard Drinks/Week Comments No 0 (1 standard drink = 0.6 oz pur e alcohol) Sex Assigned at Date Recorded Not on file documented as of this encounter Miscellaneous Notes * Telephone Encounter - Hood Edgar MD - 09/04/2018 4:50 PM EDT Sent abx, will wait on the cough syrup * Telephone Encounter - Mercedez Bunch M.A. - 09/04/2018 3:59 PM EDT Spoke to patient scheduled appt 09/09/18 for f/u .please send scripts to pharmacy. * Telephone Encounter - Sydnie Johnson - 09/04/2018 3:36 PM EDT Patient calling back in to check on status of call back. * Telephone Encounter - Sydnie Johnson - 09/04/2018 1:13 PM EDT Patient returning call. Please call her at [phone] * Telephone Encounter - Sydnie Johnson - 09/04/2018 9:14 AM EDT Caller requesting call back from provider: Is the caller the patient? YES If caller is not the patient, what is the callers name? N/A Callers relationship to patient? N/A If person calling is not the patient themselves, is there a verbal release in FYI or permanent comments for this person: NO Reason for call back: In regards to medication you were to call in for her and has questions about upcoming procedures. Caller offered to speak with the nurse for assistance: YES Response: Patient offered to speak with nurse to assist them: refused offer documented in this encounter Plan of Treatment Not on file documented as of this encounter Visit Diagnoses Not on filedocumented in this encounter Care Teams Awning Hanger Helper Relationship Specialty Start Date End Date Charbel Lyons MD PCP - General Internal Medicine 06/11/18 Name, MD Charbel Internal Medicine 06/11/18 documented as of this encounter
--- OUTSIDE RECORDS SUMMARY | 2025-03-18 15:42 | XMS_ITS | Encounter Summary ---
Author Organization [facility] Address [address] [place] [address] Care Team Providers Care Bevel Gear Generator Operator Name Role Phone Name, Charbel CARRILLO Primary Care Provider Unavailabl e Community, Pcp Primary Care Provider Unavailabl e Name, Charbel CARRILLO Primary Care Provider Unavailabl e Name, Charbel CARRILLO Primary Care Provider Unavailabl e Community, Pcp Unavailable Unavailable Name, Charbel CARRILLO Unavailable Unavailable Reason for Visit * Reason Onset Date Comments REFERRAL 11/22/2014 Encounter Details Date Type Department Care Team Description 11/22/2014 Telephone Adult Medicine [address] [address] Charbel Lyons MD REFERRAL Social History Tobacco Use Types Packs/Day Years Used Date Smoking Tobacco: Former Comments:quit 8 years ago Alcohol Use Standard Drinks/Week Comments No 0 (1 standard drink = 0.6 oz pur e alcohol) Sex Assigned at Date Recorded Not on file documented as of this encounter Miscellaneous Notes * Telephone Encounter - Maribel Tidwell M.A. - 11/22/2014 4:39 PM EST [phone] (home) Left a message on the voicemail for the patient to return my call. * Telephone Encounter - Charbel Lyons MD - 11/22/2014 3:41 PM EST She has upcoming appointment with physiatry and we will see what they recommend. I would like to wait until she see physiatry * Telephone Encounter - Lynn Rony - 11/22/2014 3:27 PM EST Patient wants referral to an orthopedic doctor , NOT [facility], PLEASE TO AN OUTSIDE ORTHO. FOR HER BACK AND NECK documented in this encounter Plan of Treatment Not on file documented as of this encounter Visit Diagnoses Not on filedocumented in this encounter Care Teams Bevel Gear Generator Operator Relationship Specialty Start Date End Date Name, MD Charbel PCP - General 09/04/06 03/26/15 Community, Pcp PCP - General Internal Medicine 03/27/15 06/09/18 Charbel yLons MD PCP - General Internal Medicine 06/10/18 06/10/18 Charbel Lyons MD PCP - General Internal Medicine 06/11/18 [facility], Pcp Internal Medicine 06/10/18 06/10/18 Charbel Lyons MD Internal Medicine 06/11/18 documented as of this encounter
--- OUTSIDE RECORDS SUMMARY | 2025-03-18 15:42 | XMS_ITS | Encounter Summary ---
Author Organization [facility] Address [address] [place] [address] Care Team Providers Care Temporary Receptionist Name Role Phone Name, Charbel CARRILLO Primary Care Provider Unavailabl e NameCharbel MD Unavailable Unavailable Encounter Details Date Type Department Care Team Description 10/26/2018 Orders Only Pulmonology - [address] [place] [address] Hood Edgar MD Social History Tobacco Use Types Packs/Day Years Used Date Smoking Tobacco: Former Cigarettes 0.3 Q uit: 2010 Smokeless Tobacco: Never Alcohol Use Standard Drinks/Week Comments No 0 (1 standard drink = 0.6 oz pur e alcohol) Sex Assigned at Date Recorded Not on file documented as of this encounter Plan of Treatment Not on file documented as of this encounter Visit Diagnoses Not on filedocumented in this encounter Care Teams Temporary Receptionist Relationship Specialty Start Date End Date Charbel Lyons MD PCP - General Internal Medicine 06/11/18 Charbel Lyons MD Internal Medicine 06/11/18 documented as of this encounter
--- OUTSIDE RECORDS SUMMARY | 2025-03-18 15:42 | XMS_ITS | Encounter Summary ---
Author Organization [facility] Address [address] [place] [address] Care Team Providers Care Co Founder And Cto Name Role Phone Name, Charbel CARRILLO Primary Care Provider Unavailabl e Name, Charbel CARRILLO Unavailable Unavailable Encounter Details Date Type Department Care Team Description 07/15/2018 Release of Information Medical Records [address] [place] [id number] Abstract, Provider Social History Tobacco Use Types Packs/Day Years [...] on filedocumented in this encounter Care Teams Co Founder And Cto Relationship Specialty Start Date End Date Charbel Lyons MD PCP - General Internal Medicine 06/11/18 Charbel Lyons MD Internal Medicine 06/11/18 documented as of this encounter
--- OUTSIDE RECORDS SUMMARY | 2025-03-18 15:42 | XMS_ITS | Encounter Summary ---
Author Organization [facility] Address [address] [place] [address] Care Team Providers Care Decaler Name Role Phone Charbel Lyons MD Primary Care Provider Unavailabl e Charbel Lyons MD Unavailable Unavailable Reason for Visit * Reason Onset Date Comments Provider Call Back 10/22/2018 Encounter Details Date Type Department Care Team Description 10/22/2018 Telephone Internal Medicine - [address], [address] [place] [address] Charbel Lyons MD Provider Call Back Social History Tobacco Use Types Packs/Day Years Used Date Smoking Tobacco: Former Alcohol Use Standard Drinks/Week Comments No 0 (1 standard drink = 0.6 oz pur e alcohol) Sex Assigned at Date Recorded Not on file documented as of this encounter Miscellaneous Notes * Telephone Encounter - Hood Edgar MD - 10/22/2018 1:49 PM EST Please fax him the Bronch report * Telephone Encounter - Tarah Arteaga - 10/22/2018 12:[address] Kelley is calling has a question regarding bronchoscopy results Pt is in hospital currently PLEASE contact Dr Kelley on his cell documented in this encounter Plan of Treatment Not on file documented as of this encounter Visit Diagnoses Not on filedocumented in this encounter Care Teams Decaler Relationship Specialty Start Date End Date Charbel Lyons MD PCP - General Internal Medicine 7/26/18 Charbel Lyons MD Internal Medicine 06/11/18 documented as of this encounter
--- OUTSIDE RECORDS SUMMARY | 2025-03-18 15:42 | XMS_ITS | Encounter Summary ---
Author Organization [facility] Address [address] [place] [address] Care Team Providers Care Aerial Gunner Superintendent Name Role Phone Name, Charbel CARRILLO Primary Care Provider Unavailabl e Community, Pcp Primary Care Provider Unavailabl e Name, Charbel CARRILLO Primary Care Provider Unavailabl e Name, Charbel CARRILLO Primary Care Provider Unavailabl e Community, Pcp Unavailable Unavailable Name, Charbel CARRILLO Unavailable Unavailable Reason for Visit * Reason Onset Date Comments Assistant Professor Of Mathematics Feedback 03/01/2015 Physiatry [facility] Encounter Details Date Type Department Care Team Description 03/01/2015 Telephone Adult Medicine [address] [address] Hope Gregory PA-C Assistant Professor Of Mathematics Feedback (Physiatry [facility]SS) Social History Tobacco Use Types Packs/Day Years Used Date Smoking Tobacco: Former Comments:quit 8 years ago Alcohol Use Standard Drinks/Week Comments No 0 (1 standard drink = 0.6 oz pur e alcohol) Sex Assigned at Date Recorded Not on file documented as of this encounter Miscellaneous Notes * Telephone Encounter - Anali Ga - 03/14/2015 11:14 AM EDT [facility]IS mailed to patient for sensitive information Order faxed to [phone] * Telephone Encounter - Brenda Greg - 03/01/2015 10:58 AM EDT Faxed the order and insurance To [phone] No insurance referral required. Notification letter mailed office will contact pt to book appt. DX Neck pain and knee pain Message forwarded to fax labs, Imaging and notes [phone] documented in this encounter Plan of Treatment Not on file documented as of this encounter Visit Diagnoses Not on filedocumented in this encounter Care Teams Aerial Gunner Superintendent Relationship Specialty Start Date End Date Name, MD Charbel PCP - General 09/04/06 03/26/15 Community, Pcp PCP - General Internal Medicine 03/27/15 06/09/18 Name, MD Charbel PCP - General Internal Medicine 06/10/18 06/10/18 NameCharbel MD PCP - General Internal Medicine 06/11/18 [facility], Pcp Internal Medicine 06/10/18 06/10/18 Name, MD Charbel Internal Medicine 06/11/18 documented as of this encounter
--- OUTSIDE RECORDS SUMMARY | 2025-03-18 15:42 | XMS_ITS | Encounter Summary ---
Author Organization [facility] Address [address] [place] [address] Care Team Providers Care Supervisor Metal Cans Name Role Phone Name, Charbel CARRILLO Primary Care Provider Unavailabl e Name, Charbel CARRILLO Unavailable Unavailable Encounter Details Date Type Department Care Team Description 09/22/2018 Release of Information Medical Records [address] [place] [address] Abstract, Provider Social History Tobacco Use Types [...] on filedocumented in this encounter Care Teams Supervisor Metal Cans Relationship Specialty Start Date End Date Charbel Lyons MD PCP - General Internal Medicine 06/11/18 Charbel Lyons MD Internal Medicine 06/11/18 documented as of this encounter
--- OUTSIDE RECORDS SUMMARY | 2025-03-18 15:43 | XMS_ITS | Encounter Summary ---
Author Organization [facility] Address [address] [place] [address] Care Team Providers Care Long Wall Mining Machine Tender Name Role Phone Name, Charbel CARRILLO Primary Care Provider Unavailabl e Name, Charbel CARRILLO Unavailable Unavailable Reason for Visit * Reason Onset Date Comments Consult Request 12/13/2019 Hospital Encounter Details Date Type Department Care Team Description 12/13/2019 Telephone Gastroenterology - [place] [address] [facility] [address] [place] [id number] Griffin Miles MD [address] [facility] [address] [place] [address] Consult Request (Hospital) Social History Tobacco Use Types Packs/Day Years Used Date Smoking Tobacco: Former Cigarettes 0.3 Q uit: 2009 Smokeless Tobacco: Never Alcohol Use Standard Drinks/Week Comments No 0 (1 standard drink = 0.6 oz pur e alcohol) Sex Assigned at Date Recorded Not on file documented as of this encounter Miscellaneous Notes * Telephone Encounter - Nissa Montana - 12/13/2019 4:54 PM EST Hospital Consultation Request for: gastroenterology Date of request: 12/13/2019 Patients PCP: Charbel Lyons Patients location:[facility] Room #: 469 Bed #: Private Room Is the patient in the ER? NO Priority of request:Routine (within 24 hours) Diagnosis: rectal bleeding/diarrhea Name of person calling in the consult: Sara Telephone # of person calling in the consult: [phone] Call Back requested? YES Patients insurance: [place] / Plan: MEDICAID P[place] / Product Type: MEDICAID [id number] documented in this encounter Plan of Treatment Not on file documented as of this encounter Visit Diagnoses Not on filedocumented in this encounter Care Teams Long Wall Mining Machine Tender Relationship Specialty Start Date End Date Name, MD Charbel PCP - General Internal Medicine 06/11/18 Name, MD Charbel Internal Medicine 06/11/18 documented as of this encounter
--- OUTSIDE RECORDS SUMMARY | 2025-03-18 15:43 | XMS_ITS | Encounter Summary ---
Author Organization [facility] Address [address] [place] [address] Care Team Providers Care Ward Maid Name Role Phone Name, Charbel CARRILLO Primary Care Provider Unavailabl e Name, Charbel CARRILLO Unavailable Unavailable Reason for Visit * Reason Onset Date Comments Note, Other 01/25/2019 Encounter Details Date Type Department Care Team Description 01/25/2019 Telephone Pulmonology - [address] [place] [address] Hood Edgar MD Note, Other Social History Tobacco Use Types Packs/Day Years Used Date Smoking Tobacco: Former Cigarettes 0.3 Q uit: 2010 Smokeless Tobacco: Never Alcohol Use Standard Drinks/Week Comments No 0 (1 standard drink = 0.6 oz pur e alcohol) Sex Assigned at Date Recorded Not on file documented as of this encounter Miscellaneous Notes * Telephone Encounter - Roz Meeks M.A. - 01/25/2019 4:36 PM EDT [facility] notes faxed to Mathieu at [facility]. * Telephone Encounter - Christine Edgar - 01/25/2019 2:25 PM EDT Mathieu calling from [facility].regarding result and notes of the patient Her appointment its tomorrow 01/26 at 9am documented in this encounter Plan of Treatment Not on file documented as of this encounter Visit Diagnoses Not on filedocumented in this encounter Care Teams Ward Maid Relationship Specialty Start Date End Date Name, MD Charbel PCP - General Internal Medicine 06/11/18 Name, MD Charbel Internal Medicine 06/11/18 documented as of this encounter
--- OUTSIDE RECORDS SUMMARY | 2025-03-18 15:43 | XMS_ITS | Encounter Summary ---
Author Organization [facility] Address [address] [place] [address] Care Team Providers Care Desktop Administrator Name Role Phone Name, Charbel CARRILLO Primary Care Provider Unavailabl e Name, Charbel CARRILLO Unavailable Unavailable Reason for Visit * Reason Onset Date Comments other 04/29/2019 Encounter Details Date Type Department Care Team Description 04/29/2019 Telephone Pulmonology - [address] [place] [address] Hood Edgar MD other Social History Tobacco Use Types Packs/Day Years Used Date Smoking Tobacco: Former Cigarettes 0.3 Q uit: 2010 Smokeless Tobacco: Never Alcohol Use Standard Drinks/Week Comments No 0 (1 standard drink = 0.6 oz pur e alcohol) Sex Assigned at Date Recorded Not on file documented as of this encounter Miscellaneous Notes * Telephone Encounter - Roz Meeks M.A. - 04/29/2019 10:07 AM EDT Patient scheduled for 11 am today. * Telephone Encounter - Lynn Uribe - 04/29/2019 9:50 AM EDT Missed her appt yesterday, she needs an appt today, was in [place] an [place], she was told byDr. Edgar he will put her in anytime, Please call documented in this encounter Plan of Treatment Not on file documented as of this encounter Visit Diagnoses Not on filedocumented in this encounter Care Teams Desktop Administrator Relationship Specialty Start Date End Date Name, MD Charbel PCP - General Internal Medicine 06/11/18 Name, MD Charbel Internal Medicine 06/11/18 documented as of this encounter
--- OUTSIDE RECORDS SUMMARY | 2025-03-18 15:43 | XMS_ITS | Encounter Summary ---
Author Organization [facility] Address [address] [place] [address] Care Team Providers Care Morning Caregiver Name Role Phone Name, Charbel CARRILLO Primary Care Provider Unavailabl e Name, Charbel CARRILLO Unavailable Unavailable Reason for Visit * Reason Onset Date Comments Provider Call Back 04/15/2019 Encounter Details Date Type Department Care Team Description 04/15/2019 Telephone Pulmonology - [address] [place] [address] Hood Edgar MD Provider Call Back Social History Tobacco Use Types Packs/Day Years Used Date Smoking Tobacco: Former Cigarettes 0.3 Q uit: 2010 Smokeless Tobacco: Never Alcohol Use Standard Drinks/Week Comments No 0 (1 standard drink = 0.6 oz pur e alcohol) Sex Assigned at Date Recorded Not on file documented as of this encounter Miscellaneous Notes * Telephone Encounter - Tarah Arteaga - 04/15/2019 9:10 AM EDT Patient called to schedule an appt with Dr Edgar. Patient's daughter got onto phone and said that was the only reason for the call-no other issue. documented in this encounter Plan of Treatment Not on file documented as of this encounter Visit Diagnoses Not on filedocumented in this encounter Care Teams Morning Caregiver Relationship Specialty Start Date End Date Charbel Lyons MD PCP - General Internal Medicine 06/11/18 NameCharbel MD Internal Medicine 06/11/18 documented as of this encounter
--- OUTSIDE RECORDS SUMMARY | 2025-03-18 15:43 | XMS_ITS | Encounter Summary ---
Author Organization [facility] Address [address] [place] [address] Care Team Providers Care Trading Analyst Name Role Phone Name, Charbel CARRILLO Primary Care Provider Unavailabl e Name, Charbel CARRILLO Unavailable Unavailable Reason for Visit * Reason Onset Date Comments Provider Call Back 12/04/2018 Encounter Details Date Type Department Care Team Description 12/04/2018 Telephone Pulmonology - [address] [place] [address] Hood Edgar MD Provider Call [...] Telephone Encounter - Hood Edgar MD - 12/06/2018 7:12 PM EST I will print it. Please fax over to them, ty * Telephone Encounter - Angie Graham C.M.A. - 12/04/2018 4:13 PM EST Can u get bronch report , thank u * Telephone Encounter - Tere Peña - 12/04/2018 3:54 PM EST Wesley with Dr Block's office is requesting if patient's bronch report & notes can be faxed to [phone]. Patient has an appointment 12/08/18. Please contact Wesley at [phone] option 2if any questions. documented in this encounter Plan of Treatment Not on file documented as of this encounter Visit Diagnoses Not on filedocumented in this encounter Care Teams Trading Analyst Relationship Specialty Start Date End Date Name, MD Charbel PCP - General Internal Medicine 06/11/18 Name, MD Charbel Internal Medicine 06/11/18 documented as of this encounter
--- OUTSIDE RECORDS SUMMARY | 2025-03-18 15:43 | XMS_ITS | Encounter Summary ---
Author Organization [facility] Address [address] [place] [address] Care Team Providers Care Spool Tender Name Role Phone Name, Charbel CARRILLO Primary Care Provider Unavailabl e NameCharbel MD Unavailable Unavailable Encounter Details Date Type Department Care Team Description 06/18/2019 Orders Only Pulmonology - [address] [place] [address] Hood Edgar MD Social History Tobacco Use Types Packs/Day Years Used Date Smoking Tobacco: Never Assessed Sex Assigned at Date Recorded Not on file documented as of this encounter Plan of Treatment Not on file documented as of this encounter Visit Diagnoses Not on filedocumented in this encounter Care Teams Spool Tender Relationship Specialty Start Date End Date Charbel Lyons MD PCP - General Internal Medicine 06/11/18 Charbel Lyons MD Internal Medicine 06/11/18 documented as of this encounter
--- OUTSIDE RECORDS SUMMARY | 2025-03-18 15:43 | XMS_ITS | Encounter Summary ---
Author Organization [facility] Address [address] [place] [address] Care Team Providers Care Coding Manager Name Role Phone Name, Charbel CARRILLO Primary Care Provider Unavailabl e Name, Charbel CARRILLO Unavailable Unavailable Encounter Details Date Type Department Care Team Description 05/23/2019 Hospital Medical Records [address] [place] [id number] Jasiel Jauregui Social History Tobacco Use Types Packs/Day Years [...] on filedocumented in this encounter Care Teams Coding Manager Relationship Specialty Start Date End Date Charbel Lyons MD PCP - General Internal Medicine 06/11/18 Charbel Lyons MD Internal Medicine 06/11/18 documented as of this encounter
--- OUTSIDE RECORDS SUMMARY | 2025-03-18 15:43 | XMS_ITS | Encounter Summary ---
Author Organization [facility] Address [address] [place] [address] Care Team Providers Care Career Development Manager Name Role Phone Name, Charbel CARRILLO Primary Care Provider Unavailabl e Name, Charbel CARRILLO Unavailable Unavailable Encounter Details Date Type Department Care Team Description 05/18/2019 Orders Only Medical Records [address] [place] [address] Abstract, Provider Pleural effusion Social History Tobacco Use Types Packs/Day Years Used Date Smoking Tobacco: Former Cigarettes 0.3 Q uit: 2009 Smokeless Tobacco: Never Alcohol Use Standard Drinks/Week Comments No 0 (1 standard drink = 0.6 oz pur e alcohol) Sex Assigned at Date Recorded Not on file documented as of this encounter Plan of Treatment Not on file documented as of this encounter Procedures Procedure Name Priority Date/Time Associated Diagnosis Comments CHG RADIOLOGIC EXAM CHEST 2 VIEWS Routine 019 Pleural effusion documented in this encounter Results * RADIOLOGIC EXAM CHEST 2 VIEWS (05/17/2019) Hood Edgar MD RADIOLOGY documented in this encounter Visit Diagnoses Diagnosis Pleural effusion Unspecified pleural effusion documented in this encounter Care Teams Career Development Manager Relationship Specialty Start Date End Date NameCharbel MD PCP - General Internal Medicine 06/11/18 NameCharbel MD Internal Medicine 06/11/18 documented as of this encounter
--- OUTSIDE RECORDS SUMMARY | 2025-03-18 15:43 | XMS_ITS | Encounter Summary ---
Author Organization [facility] Address [address] [place] [address] Care Team Providers Care Artificial Glass Eye Maker Name Role Phone Name, Charbel CARRILLO Primary Care Provider Unavailabl e Name, Charbel CARRILLO Unavailable Unavailable Reason for Visit * Reason Onset Date Comments APPOINTMENT 03/07/2022 w/Dr. Martinez Encounter Details Date Type Department Care Team Description 03/07/2022 Telephone General Surgery - [address] [place] [address] Jamar Martinez MD [address] [place] [address] [address] [place], [place] [id number] APPOINTMENT (w/Dr. Martinez ) Social History Tobacco Use Types Packs/Day Years Used Date Smoking Tobacco: Former Cigarettes 0.3 Q uit: 2009 Smokeless Tobacco: Never Alcohol Use Standard Drinks/Week Comments No 0 (1 standard drink = 0.6 oz pur e alcohol) Sex Assigned at Date Recorded Not on file documented as of this encounter Miscellaneous Notes * Telephone Encounter - Susi Venegas - 03/07/2022 1:24 PM EDT Patient called and stated that she needed an appointment to see Dr. Martinez. Asked if a referral wassent over for her. She stated that it was. Checked and see no referral on file for patient. Informed her that we need to have referral in office prior to scheduling visit. She asked why if it's gonnabe sent over and I stated it is just our office policy and patient hung up me.- documented in this encounter Plan of Treatment Not on file documented as of this encounter Visit Diagnoses Not on filedocumented in this encounter Care Teams Artificial Glass Eye Maker Relationship Specialty Start Date End Date Name, MD Charbel PCP - General Internal Medicine 06/11/18 Charbel Lyons MD Internal Medicine 06/11/18 documented as of this encounter
--- OUTSIDE RECORDS SUMMARY | 2025-03-18 15:43 | XMS_ITS | Encounter Summary ---
Author Organization [facility] Address [address] [place] [address] Care Team Providers Care Auto Transmission Mechanic Name Role Phone Name, Charbel CARRILLO Primary Care Provider Unavailabl e Name, Charbel CARRILLO Unavailable Unavailable Encounter Details Date Type Department Care Team Description 01/12/2019 Hospital Medical Records [address] [place] [id number] Social History Tobacco Use Types Packs/Day Years [...] on filedocumented in this encounter Care Teams Auto Transmission Mechanic Relationship Specialty Start Date End Date Charbel Lyons MD PCP - General Internal Medicine 06/11/18 Charbel Lyons MD Internal Medicine 06/11/18 documented as of this encounter
--- OUTSIDE RECORDS SUMMARY | 2025-03-18 15:43 | XMS_ITS | Encounter Summary ---
Author Organization [facility] Address [address] [place] [address] Care Team Providers Care Underground Miner Name Role Phone Name, Charbel CARRILLO Primary Care Provider Unavailabl e Name, Charbel CARRILLO Unavailable Unavailable Encounter Details Date Type Department Care Team Description 05/22/2019 Hospital Medical Records [address] [place] [address] Jani Servin MD [address] [place] [phone] Social History Tobacco Use Types Packs/Day Years [...] on filedocumented in this encounter Care Teams Underground Miner Relationship Specialty Start Date End Date Charbel Lyons MD PCP - General Internal Medicine 06/11/18 Charbel Lyons MD Internal Medicine 06/11/18 documented as of this encounter
--- OUTSIDE RECORDS SUMMARY | 2025-03-18 15:43 | XMS_ITS | Encounter Summary ---
Author Organization [facility] Address [address] [place] [address] Care Team Providers Care Metal Riveter Name Role Phone Charbel Lyons MD Primary Care Provider Unavailabl e Charbel Lyons MD Unavailable Unavailable Encounter Details Date Type Department Care Team Description 05/31/2019 Telephone Internal Medicine - [address], [address] [place] [address] Hood Edgar MD Social History Tobacco Use [...] on filedocumented in this encounter Care Teams Metal Riveter Relationship Specialty Start Date End Date Charbel Lyons MD PCP - General Internal Medicine 06/11/18 Charbel Lyons MD Internal Medicine 06/11/18 documented as of this encounter
--- OUTSIDE RECORDS SUMMARY | 2025-03-18 15:43 | XMS_ITS | Encounter Summary ---
Author Organization [facility] Address [address] [place] [address] Care Team Providers Care Hop Strainer Name Role Phone Name, Charbel CARRILLO Primary Care Provider Unavailabl e Name, Charbel CARRILLO Unavailable Unavailable Encounter Details Date Type Department Care Team Description 01/12/2019 Hospital Medical Records [address] [place] [address] Hood Edgar MD Social History Tobacco Use [...] on filedocumented in this encounter Care Teams Hop Strainer Relationship Specialty Start Date End Date Charbel Lyons MD PCP - General Internal Medicine 06/11/18 Charbel Lyons MD Internal Medicine 06/11/18 documented as of this encounter
--- OUTSIDE RECORDS SUMMARY | 2025-03-18 15:43 | XMS_ITS | Encounter Summary ---
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 Social History Tobacco Use Types Packs/Day Years Used Date Smoking Tobacco: Former Cigarettes 0.3 Q uit: 2009 Smokeless Tobacco: Never Alcohol Use Standard Drinks/Week Comments No 0 (1 standard drink = 0.6 oz pur e alcohol) Sex Assigned at Date Recorded Not on file documented as of this encounter Plan of Treatment Not on file documented as of this encounter Visit Diagnoses Diagnosis Mario's syndrome (HCC) Postmyocardial infarction syndrome Moderate persistent asthma without complication Unspecified asthma documented in this encounter Care Teams Director Of Category Management Relationship Specialty Start Date End Date Charbel Lyons MD PCP - General Internal Medicine 06/11/18 Charbel Lyons MD Internal Medicine 06/11/18 documented as of this encounter
--- OUTSIDE RECORDS SUMMARY | 2025-03-18 15:43 | XMS_ITS | Encounter Summary ---
Author Organization [facility] Address [address] [place] [address] Care Team Providers Care Pumper Head Name Role Phone Name, Charbel CARRILLO Primary Care Provider Unavailabl e Name, Charbel CARRILLO Unavailable Unavailable Reason for Visit * Reason Onset Date Comments Call From Hospital 05/24/2019 Provider Call Back 05/24/2019 Encounter Details Date Type Department Care Team Description 05/24/2019 Telephone Pulmonology - [address] [place] [address] Hood Edgar MD Call From Hospital; Provider Call Back Social History Tobacco Use Types Packs/Day Years Used Date Smoking Tobacco: Former Cigarettes 0.3 Q uit: 2010 Smokeless Tobacco: Never Alcohol Use Standard Drinks/Week Comments No 0 (1 standard drink = 0.6 oz pur e alcohol) Sex Assigned at Date Recorded Not on file documented as of this encounter Miscellaneous Notes * Telephone Encounter - Hood Edgar MD - 05/25/2019 4:32 PM EDT CALLED SENT MEDS. PLEASE SCHEDULE FOR 830AM THURSDAY 05/31 * Telephone Encounter - Renea Key - 05/25/2019 2:41 PM EDT Patient keeps calling please call patient back this urgent. * Telephone Encounter - Renea Key - 05/25/2019 1:17 PM EDT Patient is still waiting for a call back from the provider. Patient also want to discuss her lab work that was done on 05/17/19 Please call her errol. [phone] * Telephone Encounter - Renea Key - 05/24/2019 2:36 PM EDT Patient would like a call back because she has a few questions about mediction that wasn't prescribed for her about the problem she has. They only medicine for pain. Please call patient back [phone] * Telephone Encounter - Brenda Rivera - 05/24/2019 12:01 PM EDT Pt admitted to [facility] on Friday-shortness of [id number] Would like a phone call RE: Her condition - States she was under the impression she has a Lump on her Lung. and the doctors at [facility] unsure of what she has. Please call pt .SHe is still a patient @ [facility]. documented in this encounter Plan of Treatment Not on file documented as of this encounter Visit Diagnoses Not on filedocumented in this encounter Care Teams Pumper Head Relationship Specialty Start Date End Date Name, MD Charbel PCP - General Internal Medicine 06/11/18 Name, MD Charbel Internal Medicine 06/11/18 documented as of this encounter
--- OUTSIDE RECORDS SUMMARY | 2025-03-18 15:43 | XMS_ITS | Encounter Summary ---
Author Organization [facility] Address [address] [place] [address] Care Team Providers Care Vehicle Service Attendant Name Role Phone Name, Charbel CARRILLO Primary Care Provider Unavailabl e Name, Charbel CARRILLO Unavailable Unavailable Encounter Details Date Type Department Care Team Description 05/22/2019 Hospital Medical Records [address] [place] [address] Jani Servin MD [address] [place] [phone] Social History Tobacco Use Types Packs/Day [...] on filedocumented in this encounter Care Teams Vehicle Service Attendant Relationship Specialty Start Date End Date Charbel Lyons MD PCP - General Internal Medicine 06/11/18 Charbel Lyons MD Internal Medicine 06/11/18 documented as of this encounter
--- OUTSIDE RECORDS SUMMARY | 2025-03-18 15:43 | XMS_ITS | Clinical Summary ---
Author Organization [facility] Address [address] [place] [address] Care Team Providers Care Store Product Demonstrator Name Role Phone Name, Charbel CARRILLO Primary Care Provider Unavailabl e Name, Charbel CARRILLO Unavailable Unavailable Allergies Active Allergy Reactions Severity Noted Date Comments Ibuprofen 10/26/2018 Due to Crhons Iodine Hives/Urticaria,SOB, Wheezing High 07/24/2018 Latex 09/09/2006 Kaleb Flavor Hives/Urticaria,SOB, Wheezing 05/30/2009 Passion Fruit Flavor Numbness, tingling or swelling of the lips, tongue or mouth,Hives/Urticaria 05/30/2009 Penicillins Hives/Urticaria,SOB, Wheezing 07/24/2018 Tylenol Extra Strength 10/26/2018 Unable to take due to liver issues Medications Medication Sig Dispensed Refills Start Date End Date Status nystatin-triamcinol one (MYCOLOG) ointment Apply topically 3 times daily. As needed for vaginal itch 60 g 5 08/09/2014 Active beclomethasone (QVAR) 80 MCG/ACT inhaler Inhale 1 Puff into the lungs 2 times daily. 1 Inhaler 5 08/17/2014 Active albuterol (PROVENTIL) (2.5 MG/3ML) 0.083% nebulizer solution Take 1 Vial by nebulization every 4 hours as needed for Wheezing. 50 Vial 0 09/05/2014 Active EPINEPHrine (EPIPEN 2-ANDI) 0.3 MG/0.3ML SOAJ Inject 1 Package as directed See Admin Instructions. 1 Each 0 09/05/2014 Active Loratadine 10 MG Cap Take 1 Cap by mouth daily. 30 Cap 0 12/09/2014 Active gemfibrozil (LOPID) 600 MG tabletIndications:M yalgia and myositis, unspecified,Bipolar I disorder, most recent episode (or current) unspecified,Anxiety state, unspecified Take 1 Tab by mouth 2 times daily (before meals). 60 Tab 5 02/16/2015 Active gabapentin (NEURONTIN) 800 MG tabletIndications:M yalgia and myositis, unspecified,Bipolar I disorder, most recent episode (or current) unspecified,Anxiety state, unspecified Take 1 Tab by mouth 3 times daily. 90 Tab 5 02/16/2015 Active amlodipine (NORVASC) 5 MG tabletIndications:C ough,Moderate persistent asthma without complication,CJ (obstructive sleep apnea),Tracheomalac ia Take 5 mg by mouth daily. 0 Active clonazepam (KLONOPIN) 1 MG tabletIndications:C ough,Moderate persistent asthma without complication,CJ (obstructive sleep apnea),Tracheomalac ia Take 1 mg by mouth 3 times daily. 0 Active tramadol (ULTRAM) 50 MG tabletIndications:C ough,Moderate persistent asthma without complication,CJ (obstructive sleep apnea),Tracheomalac ia Take 50 mg by mouth every 6 hours as needed. 0 Active aripiprazole (ABILIFY) 15 MG tabletIndications:C ough,Moderate persistent asthma without complication,CJ (obstructive sleep apnea),Tracheomalac ia Take 15 mg by mouth daily. 0 Active Infant Foods (PROSOBEE OR)Indications:Coug h,Moderate persistent asthma without complication,CJ (obstructive sleep apnea),Tracheomalac ia Take by mouth. 0 Active duloxetine (CYMBALTA) 20 MG capsuleIndications: Cough,Moderate persistent asthma without complication,CJ (obstructive sleep apnea),Tracheomalac ia Take 20 mg by mouth daily. 0 Active fluticasone (FLONASE) 50 MCG/ACT nasal sprayIndications:Co ugh,Moderate persistent asthma without complication,CJ (obstructive sleep apnea),Tracheomalac ia 2 Sprays by Nasal route daily for 30 days. 1 Bottle 11 07/13/2018 Active Hydrocod Polst-CPM Polst ER (TUSSIONEX PENNKINETIC ER) 10-8 MG/5ML Suspension Extended Release Take 5 mL by mouth 2 times daily. 300 mL 0 09/09/2018 Active mupirocin (BACTROBAN) 2 % ointment APPLY TWICE A DAY X 5 DAY 22 g 0 09/09/2018 Active Respiratory Therapy Supplies (FLUTTER) Device 1 Device by Does not apply route 4 times daily as needed (COUGH). 1 Device 0 09/09/2018 Active predniSONE (DELTASONE) 20 MG tablet Take 2 tabs by mouth daily x 5 days, then 1 tab daily x 5 days 15 Tab 0 10/22/2018 Active pantoprazole (PROTONIX) 40 MG tablet Take 1 Tab by mouth 2 times daily for 180 days. 60 Tab 5 11/06/2018 Active Misc. Devices (ACAPELLA) Misc 1 Device by Does not apply route 4 times daily for 30 days. 1 Each 11 11/27/2018 Active Mix equal parts:MAALOX SUSP/LIDOCAINE VISCOUS 2 % MT SOLN/BENADRYL 12.5MG/5ML Swish and spit 10 mL every 4 hours as needed for Pain for up to 14 days. Please mix the following in equal parts: MAALOX REGULAR STRENGTH 225-200-25 MG/5ML OR SUSP- 30cc LIDOCAINE VISCOUS 2 % MT SOLN - 30cc BENADRYL 12.5 MG/5ML OR ELIX - 30cc 90 mL 3 11/27/2018 Active losartan (COZAAR) 50 MG tablet TAKE 1 TABLET BY MOUTH DAILY 30 Tab 3 03/09/2019 Active ALBUTEROL SULFATE (PROAIR HFA) 108 (90 BASE) MCG/ACT Aero Soln Inhale 2 Puffs into the lungs 4 times daily as needed for Cough or Wheezing. 1 Inhaler 5 04/20/2019 Active oxycodone (ROXICODONE) 5 MG immediate release tablet Take 1 Tab by mouth every 6 hours as needed for Pain for up to 10 days. 45 tablet 0 05/17/2019 Active predniSONE (DELTASONE) 10 MG tablet 2 TABS BY MOUTH DAILY X 5 DAYS, THEN 1 TAB DAILY 15 Tab 0 05/21/2019 Active colchicine 0.6 MG tablet Take 1 Tab by mouth 2 times daily for 30 days. 120 Tab 0 05/25/2019 Active predniSONE (DELTASONE) 5 MG tabletIndications:D damian's syndrome (HCC),Moderate persistent asthma without complication TAKE 1 TAB DAILY X 10 DAYS, THEN 1 TAB EVERY OTHER DAY X 10 DAYS 15 tablet 0 05/31/2019 Active Spacer/Aero-Holding Chambers (AEROCHAMBER MV) MiscIndications:Patric ssler's syndrome (HCC),Moderate persistent asthma without complication 1 Device by Does not apply route as needed (WITH MDI). 1 Each 0 05/31/2019 Active oxyCODONE HCl 10 MG TabIndications:Dres sler's syndrome (HCC),Moderate persistent asthma without complication Take 1 Tab by mouth every 4 hours as needed (PAIN) for up to 10 days. 60 Tab 0 06/18/2019 Active Tiotropium Hood Monohydrate (SPIRIVA RESPIMAT) 1.25 MCG/ACT Aero SolnIndications:Mod erate persistent asthma without complication,Trache omalacia, acquired,CJ (obstructive sleep apnea),Essential hypertension,Pulmon adarsh nodules,Class 1 obesity due to excess calories with serious comorbidity and body mass index (BMI) of 30.0 to 30.9 in adult Inhale 2.5 mcg into the lungs daily for 90 days. 1 Inhaler 5 07/05/2019 Active Active Problems Problem Noted Date Pulmonary nodules 07/05/2019 Obese 07/05/2019 Tracheomalacia, acquired 09/09/2018 Cough 08/21/2018 Chronic knee pain 07/24/2018 History of gestational diabetes 07/24/20 18 Sjogren's syndrome 07/24/2018 Colon polyps 07/24/2018 CJ (obstructive sleep apnea) 07/13/2018 HTN (hypertension) 09/28/2014 Migraine 01/04/2009 Environmental allergies 05/16/2008 Hypertriglyceridemia 01/26/2008 GERD (gastroesophageal reflux disease) 1 12/24/2006 Bipolar I disorder 07/02/2007 Anxiety 07/02/2007 Asthma 09/09/2006 Depression 09/09/2006 Chronic low back pain 09/09/2006 Overview: chronic back pain and knee pain R>L Carpal tunnel syndrome 09/09/2006 Constipation due to opioid therapy 09/09 Resolved Problems Problem Noted Date Resolved Date Low back pain 05/17/2008 01/04/2009 Seborrheic dermatitis 2008 01/04/2009 Chest tightness 2008 01/04/2009 Onychomycosis 01/18/2008 01/04/2009 Weight gain 12/21/2007 01/04/2009 Headache 10/23/2007 01/04/2009 Overview: Nausea, vomiting, scotomas, chronic problem Pain in joint, forearm 07/28/2007 8 Other malaise and fatigue 07/28/20072007 Other dyspnea and respiratory abnormality 200611/20/2007 Urinary frequency 01/13/2007 11/20/2007 Immunizations Name Administration Dates Next Due Influenza (> 6 Months) 10/09/2014,2009,08/08/2008,09/30 Influenza H1N1 Pandemic Flu Vaccine 12/05/2009 PPD-RBMG 12/10/2006 Pneumoccoccal(Adult) Polysac charide PPSV23 05/30/2009 TD (STATE SUPPLIED FOR ADULT S AND CHILDREN) 09/30/2006 Family History Medical History Relation Name Comments Diabetes Father HTN CHF Maternal Grandmother DM Arthritis Mother HTN, Cancer pokagon rine Relation Name Status Comments Father Maternal Grandmother Mother Social History Tobacco Use Types Packs/Day Years Used Date Smoking Tobacco: Former Cigarettes 0.3 Q uit: 2009 Smokeless Tobacco: Never Alcohol Use Standard Drinks/Week Comments No 0 (1 standard drink = 0.6 oz pur e alcohol) Sex Assigned at Date Recorded Not on file Last Filed Vital Signs Vital Sign Reading Time Taken Comments Blood Pressure 131/100 07/05/2019 10:46 AM EDT Pulse 84 07/05/2019 10:46 AM EDT Temperature 36.6 ??C (97.9 ??F) 02/16/2015 9:40 AM ED T Respiratory Rate 14 07/05/2019 10:46 AM EDT Oxygen Saturation 97% 07/05/2019 10:46 AM EDT Inhaled Oxygen Concentration - - Weight 87.8 kg (193 lb 9.6 oz) 07/05/2019 10:46 AM EDT Height 165.1 cm (5' 5 ) 07/05/2019 10:46 AM EDT Body Mass Index 32.22 07/05/2019 10:46 AM EDT Plan of Treatment Health Maintenance Due Date Last Done Comments Covid-19 Vaccine (#1) 1970 HEPATITIS C SCREENING 1987 CERVICAL CANCER SCREENING 09/30/2009 09/30/2006 MAMMOGRAM 07/26/2015 07/26/2014, 07/2014 (External Completion), 01/03/2011 BASELINE HEALTH EXAM 40-64 09/05/201609/05, 08/17/2014, 08/17/2014, Additional history exists SHINGLES VACCINE (1 of 2) 2019 CHOLESTEROL SCREENING 2020 02/16/2015 , 08/10/2014, 12/12/2009, Additional history exists BMI CHECK/ADVISE 11/17/2024 07/05/2019, , 05/17/2019, Additional history exists INFLUENZA (Season Ended) 2025 014, 12/05/2009, 08/08/2008, Additional history exists DTAP/TDAP/TD (2 - Td or Tdap) 11/03/2027 11/03/2017, 09/30/2006 COLON CANCER SCREENING 12/15/2029 12/15/2019 PNEUMOCOCCAL VACCINE FOR HIG H RISK PATIENTS Completed 04/01/2023, 05/30/2009 Care Teams Store Product Demonstrator Relationship Specialty Start Date End Date Name, MD Charbel PCP - General Internal Medicine 06/11/18 Name, MD Charbel Internal Medicine 06/11/18
--- OUTSIDE RECORDS SUMMARY | 2025-03-18 15:43 | XMS_ITS | Encounter Summary ---
Author Organization [facility] Address [address] [place] [address] Care Team Providers Care Biopharmaceutical Rep Name Role Phone Name, Charbel CARRILLO Primary Care Provider Unavailabl e Name, Charbel CARRILLO Unavailable Unavailable Encounter Details Date Type Department Care Team Description 12/29/2018 Telephone Pulmonology - [address] [place] [address] Hood Edgar MD Social History [...] Telephone Encounter - Roz Meeks M.A. - 12/29/2018 1:30 PM EST Faxed relase of Information to Referrals. documented in this encounter Plan of Treatment Not on file documented as of this encounter Visit Diagnoses Not on filedocumented in this encounter Care Teams Biopharmaceutical Rep Relationship Specialty Start Date End Date Charbel Lyons MD PCP - General Internal Medicine 06/11/18 Charbel Lyons MD Internal Medicine 06/11/18 documented as of this encounter
--- OUTSIDE RECORDS SUMMARY | 2025-03-18 15:43 | XMS_ITS | Encounter Summary ---
Author Organization [facility] Address [address] [place] [address] Care Team Providers Care Manager Technology Name Role Phone Name, Charbel CARRILLO Primary Care Provider Unavailabl e Name, Charbel CARRILLO Unavailable Unavailable Encounter Details Date Type Department Care Team Description 05/23/2019 Hospital Medical Records [address] [place] [address] Jasiel Jauregui Social History Tobacco Use Types [...] on filedocumented in this encounter Care Teams Manager Technology Relationship Specialty Start Date End Date Charbel Lyons MD PCP - General Internal Medicine 06/11/18 Charbel Lyons MD Internal Medicine 06/11/18 documented as of this encounter
--- OUTSIDE RECORDS SUMMARY | 2025-03-18 15:43 | XMS_ITS | Encounter Summary ---
Author Organization [facility] Address [address] [place] [address] Care Team Providers Care Senior Research Scientist Name Role Phone Community, Pcp Primary Care Provider Unavailabl e Name, Charbel CARRILLO Primary Care Provider Unavailabl e Name, Charbel CARRILLO Primary Care Provider Unavailabl e Community, Pcp Unavailable Unavailable Name, Charbel CARRILLO Unavailable Unavailable Encounter Details Date Type Department Care Team Description 09/21/2016 Release of Information Medical Records [address] [place] [id number] Abstract, Provider Social History Tobacco Use Types [...] on filedocumented in this encounter Care Teams Senior Research Scientist Relationship Specialty Start Date End Date Community, Pcp PCP - General Internal Medicine 03/27/15 06/09/18 Charbel Lyons MD PCP - General Internal Medicine 06/10/18 06/10/18 Charbel Lyons MD PCP - General Internal Medicine 06/11/18 Kellie, Pcp Internal Medicine 06/10/18 06/10/18 Charbel Lyons MD Internal Medicine 06/11/18 documented as of this encounter
--- OUTSIDE RECORDS SUMMARY | 2025-03-18 15:43 | XMS_ITS | Encounter Summary ---
Author Organization [facility] Address [address] [place] [address] Care Team Providers Care Engineering Technical Writer Name Role Phone Name, Charbel CARRILLO Primary Care Provider Unavailabl e Name, Charbel CARRILLO Unavailable Unavailable Encounter Details Date Type Department Care Team Description 04/30/2019 Orders Only Medical Records [address] [place] [id number] Abstract, Provider Shortness of breath; Cough Social History Tobacco Use Types Packs/Day Years [...] CHG RADIOLOGIC EXAM CHEST 2 VIEWS Routine 04/29/2019 Shortness of breath Cough documented in this encounter Results * RADIOLOGIC EXAM CHEST 2 VIEWS (04/29/2019) Hood Edgar MD RADIOLOGY documented in this encounter Visit Diagnoses Diagnosis Shortness of breath Cough documented in this encounter Care Teams Engineering Technical Writer Relationship Specialty Start Date End Date Charbel Lyons MD PCP - General Internal Medicine 06/11/18 Charbel Lyons MD Internal Medicine 06/11/18 documented as of this encounter
--- OUTSIDE RECORDS SUMMARY | 2025-03-18 15:43 | XMS_ITS | Encounter Summary ---
Author Organization [facility] Address [address] [place] [address] Care Team Providers Care Sql Server Architect Name Role Phone Name, Charbel CARRILLO Primary Care Provider Unavailabl e Name, Charbel CARRILLO Unavailable Unavailable Encounter Details Date Type Department Care Team Description 08/26/2019 Hospital Medical Records [address] [place] [address] Hood Edgar MD Social History Tobacco Use [...] on filedocumented in this encounter Care Teams Sql Server Architect Relationship Specialty Start Date End Date Charbel Lyons MD PCP - General Internal Medicine 06/11/18 Charbel Lyons MD Internal Medicine 06/11/18 documented as of this encounter
--- OUTSIDE RECORDS SUMMARY | 2025-03-18 15:43 | XMS_ITS | Encounter Summary ---
Author Organization [facility] Address [address] [place] [address] Care Team Providers Care Shop Girl Name Role Phone Name, Charbel CARRILLO Primary Care Provider Unavailabl e Community, Pcp Primary Care Provider Unavailabl e Name, Charbel CARRILLO Primary Care Provider Unavailabl e Name, Charbel CARRILLO Primary Care Provider Unavailabl e Community, Pcp Unavailable Unavailable Name, Charbel CARRILLO Unavailable Unavailable Encounter Details Date Type Department Care Team Description 09/19/2007 SCAN Medical Records [address] [place] [address] Abstract, Provider Social History Tobacco Use Types Packs/Day Years Used Date Smoking Tobacco: Former Comments:2003 Alcohol Use Standard Drinks/Week Comments No 0 (1 standard drink = 0.6 oz pur e alcohol) Sex Assigned at Date Recorded Not on file documented as of this encounter Plan of Treatment Pending Results Name Type Priority Associated Diagnoses Date /Time MRI OF CERVICAL SPINE Medical Imaging Routine 08/31/2007 documented as of this encounter Visit Diagnoses Not on filedocumented in this encounter Care Teams Shop Girl Relationship Specialty Start Date End Date Name, MD Charbel PCP - General 09/04/06 03/26/15 [facility], Pcp PCP - General Internal Medicine 03/27/15 06/09/18 Charbel Lyons MD PCP - General Internal Medicine 06/10/18 06/10/18 Charbel Lyons MD PCP - General Internal Medicine 06/11/18 Community, Pcp Internal Medicine 06/10/18 06/10/18 Charbel Lyons MD Internal Medicine 06/11/18 documented as of this encounter
== END 2025-03-18 15:40 | disposition home or self-care (01) ==
LOC: HO.HHCL 15:39
PROVIDERS: Visit Provider Nurse Practitioner Family
DX: Z13.89 Encounter for screening for other disorder (principal)

== ENCOUNTER 2025-04-15 17:19 | Outpatient (REF) | payer MEDICAID, SELFPAY ==
--- OUTSIDE RECORDS SUMMARY | 2025-04-15 17:22 | XMS_ITS | Encounter Summary ---
Author Organization [employer] Address [address] [place] [address] [address] [place] [address] Care Team Providers Care Agronomy Specialist Name Role Phone Name, Charbel CARRILLO Primary Care Provider [phone] Мария Gudino PharmD Unavailable [phone] Encounter Details Date Type Department Care Team (Late st Contact Info) Description 05/25/2024 Orders Only [facility] [address] [place] [address] Provider, MD Fantasma Social History Tobacco Use [...] 05/10/2025 3:45 PM EDT Office Visit [facility] MEDICINE [address] [place] [address] Name, MD Charbel [address] [place] [address] documented as of this encounter Goals Goal Patient Goal Type Associated Problems Recent Progress Patient-Stated? Author Record your blood pressure once per day Blood Pressure No Puia, Мария, PharmD Blood Pressure < 140/90 Blood Pressure 156/88(2024 1:13 PM EDT) No Puia, Мария, PharmD Patient [...] documented as of this encounter Care Teams Agronomy Specialist Relationship Specialty Start Date End Date Name, MD Charbel [address] [place] [address] PCP - General Family Medicine 02/26/16 Мария Gudino PharmD [address] [place] [address] Pharmacist Internal Medicine 04/29/23 documented as of this encounter
== END 2025-04-15 17:20 | disposition home or self-care (01) ==
LOC: HO.HHCLNP 17:19
PROVIDERS: Visit Provider Nurse Practitioner Family
DX: T81.49XA Infection following a procedure, other surgical site, initial encounter (principal); T81.30XA Disruption of wound, unspecified, initial encounter
CPT/HCPCS: 87070; 87205

== ENCOUNTER 2025-05-26 13:00 | Outpatient (AMB) | payer MEDICAID, SELFPAY ==
[2025-05-26 13:04] VITALS: BP 120/74; PULSE 84; O2SAT 98; BMI 28.8
--- NOTE | 2025-05-26 13:04 | A.OFFVIS_ITS ---
Vital Signs 05/26/25 13:04 Height 5 ft 5 in Weight 173 lb 1.006 oz BMI 28.8 BP 120/74 Blood Pressure Location Rt brachial Position Sitting Pulse 84 Pulse Source Pulse Oximeter Pulse Oximetry (%) 98 Oxygen Delivery Method Room Air Intake Visit Reasons: Needs 6MW for O2 Recert Accompanied by: Self / Same As Patient Allergies latex (LATEX) Allergy (Severe, Verified 05/26/25 13:07) RASH passion fruit (PASSION FRUIT) Allergy (Severe, Verified 05/26/25 13:07) ANAPHYLAXIS Penicillins (PCN) Allergy (Severe, Verified 05/26/25 13:07) ANAPHYLAXIS shellfish derived (SHELLFISH DERIVED) Allergy (Severe, Verified 05/26/25 13:07) MOUTH SWELLING, ITCHY acetaminophen (From TYLENOL) Allergy (Mild, Verified 05/26/25 13:07) UNKNOWN ibuprofen (IBUPROFEN) Allergy (Mild, Verified 05/26/25 13:07) HX ULCERS TOLD NOT TO TAKE iodine (IODINE) Allergy (Mild, Verified 05/26/25 13:07) ITCHY lisinopril Adverse Reaction (Severe, Verified 05/26/25 13:07) Rash metformin Adverse Reaction (Severe, Verified 05/26/25 13:07) Rash HPI Comments Details: The patient is a 55 y/o woman with a history of tracheobronchomalacia in addition to asthma. She is status post tracheoplasty in [place] complicated by right-sided pleural effusion and significant right-sided chest discomfort. 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 More recently she did have a CT scan of the chest that [facility] demonstrating a nondisplaced rib fracture. No evidence of any pulmonary emboli. Her chest pain is still moderate severity. Limiting her activity. She is scheduled to have a repeat CT scan of the chest and bronchoscopy in [facility]. She continues to use her respiratory inhalers for her asthma. We did give her further indication about which inhalers she should be using. She is status post bronchoscopy demonstrating patency of the trachea and a successful surgery. Her cough is significantly improved. She continues with respiratory therapy. 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 She did have a visit with the pain specialist. In the meantime the patient needs to be using her CPAP. She states that he needs to be adjusted. She will bring in the next time so we can adjusted the CPAP so she can use it as prescribed. She understands was so help her respiratory status and also decrease cardiovascular risks. 05/13/2023 the patient is here for a pulmonary follow-up visit. Overall the patient had been doing relatively well. She continues to have dyspnea on exertion. She also responds well to the oxygen specially if she is exercising. The patient recently went to [place] and completed a course of thermoplastic. Now she is doing well from an asthma standpoint. She is continues on the Xolair continues with allergy medicine. She did undergo pulmonary function studies today which we personally reviewed in the office. No evidence of any obstructive ventilatory defects. Although her total lung capacity still low at 73%. Indeed is better than before which was 69% and a diffusing capacity is a little better as well. Still this restrictive ventilatory defect does the affect her her symptoms. I do believe that she will benefit from pulmonary rehabilitation at this time and the patient is agreeable to this. In the meantime she is going to continue with current allergy therapy. She also is being monitored off for underlying pulmonary nodules. Her last CT scan was done at [facility] back in January 2023. No evidence of any residual rib fractures that she was wondering. Again pulmonary nodules that will need follow-up. During that visit she also has some stranding in the GI tract due to likely food poisoning. Also, still having daytime drowsiness. EPWORTH score 11/24. 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 Will order an in-lab PSG. Current the patient is doing well she will return to [place] sometime in November. Otherwise will continue to follow her every 4-6 months. 07/31/2023 the patient is here for pulmonary follow-up visit. The patient has been complaining of worsening asthma symptoms. She has been having increasing chest tightness and wheezing. This has been happening now for the last 3 days. She continues with Xolair injections in does have been helpful. Denies any sick contacts. She has been using her respiratory therapy. Her cough is been difficult because is been keeping her up at nighttime. Will go ahead and provide her with cough suppressant therapy. She is concerned because she has a trip planned in at this point with the asthma exacerbation the patient will go ahead and receive Solu-Medrol IM x1. She is going to continue respiratory therapy. If the patient is no better she will call the office for additional steroid therapy. The patient also continues to have significant daytime drowsiness. She did have a sleep study back in the summer demonstrating mild sleep apnea. Patient will try positional therapy. But, if the patient continues to be symptomatic with daytime drowsiness she would benefit from CPAP therapy. 11/28/2023 the patient is here for sick visit. Apparently the beginning of the year she was exposed to her grandson with the flu. Ultimately developed the flu she did call and she did take Tamiflu. Although her respiratory symptoms worsened and she required prednisone and also antibiotics. She will call the office when he stopped the medications to the pharmacy. She continues to have significant asthma chest tightness and wheezing. She is wondering what she can do. She also has chest congestion and difficult to expectorate the phlegm. The patient does have significant wheezing will provide her with Solu-Medrol 125 mg IM x1. The patient also benefit from another course of antibiotics and prednisone. She does have a scheduled bronchoscopy next week for follow-up after thrombo plasty. But at this point I did recommend to the patient that if she continues to have active asthma she should postpone specially if there has no need for any interventions. 03/25/2024 the patient is here for a pulmonary follow-up visit. The patient recently had a upper respiratory illness resulting in an asthma exacerbation. The patient required antibiotics and prednisone. She now has completed the course. She still has hoarseness. She feels some chest congestion but overall better. The patient does not need any additional prednisone antibiotics. If her symptoms worsen she can always consider calling to be reassessed. In the meantime she is changing pharmacy so I sent her all her medicines with the new pharmacy. She also has been using the CPAP at nighttime. The CPAP therapy continues to be affecting beneficial. She does try to use it more than 4 hours a night. She has not been getting supplies. I did send a script to [facility] in order for her to get supplies. I explained to the patient that she needs to make sure she has adequate usage from the CPAP in order to be active with them. In the meantime I did provide her with an N30 eyes small mask that seemed to fit better than the P 10 nasal pillows that was irritating her nares. I will request that new mask to the [employer]. The patient also be following up in [place] soon. She is scheduled to have a PFT a CT scan and possibly a bronchoscopy to have an evaluation post thermoplastic. The patient will request her imaging studies in order for us to be able to review them over here. She was a;so evaluated by allergy and had allergy testing. She continues on the Xolair. Otherwise patient is without other complaints. She will follow-up in 3- 4 months. If any new issues arise she will call for an earlier assessment. 06/14/2024 the patient is here for a sick visit. Apparently patient was in his usual state health until this weekend started developing some difficulty with her breathing. [place] like her throat was closing up. [place] some difficulty swallowing. Although no sore throat. She continue using her respiratory therapy. As far as exposures she had been out during the day and pureed. There was positive sick contacts although she does not have any Viral syndrome symptoms. She also states that recently her Xolair was increased and she is not sure if that has anything to do with it. She does have an EpiPen although is not up today and is actually . I will send her new EpiPen to the pharmacy. She knows when to use it and how to use it. The patient does have some swelling on the throat area. I do not see any evidence of any angioedema or any edema of the uvula. I also do not appreciate any stridor at this time. Will go ahead and treat her with some prednisone to decrease the inflammatory changes and also will treat her for the possibility of bacterial pharyngitis. The patient be following up with her non clinical advisor in a couple weeks at which point she can continue to be evaluated as far as symptoms. But at this point she has been on Xolair for a long period of time and she has done well on it and I do not believe that the increasing the medication has any evidence of any adverse effects at this time. 07/26/2024 the patient is here for a pulmonary follow-up visit. She still struggling with her breathing. The patient is been concerned about the Xolair. She feels that she is having reactions to it. We last spoke she had to use an EpiPen twice. The patient also has been having some issue with hoarseness and raspiness of her voice. She has also had chest congestion chest tightness. The patient has required her nebulizer several times a day. She has also continue with respiratory therapy. We did do additional blood work. It looks like her IgE level continues to be elevated. Eosinophil levels okay. Although at this point because of adverse symptoms it would be reasonable to switch her biologic to a different agent. I do believe test part be a good option for her. Dupixent will be a good option to however, her eosinophils are within normal limits. She is also concerned about her tracheobronchomalacia. She feels like it is coming back. She is supposed to be seen by [place] soon. She continues use her CPAP every night. CPAP therapy has been affecting beneficial. She needs use more than 4 hours a night. Therefore will continue with the current respiratory therapy and allergy therapy. The patient has required prednisone multiple times as it is already. She has diabetes. We need to minimize her prednisone use. The patient does have chronic bronchitis so therefore the use of Daliresp at this time will be helpful. 09/30/2024 the patient is here for pulmonary follow-up visit. Overall she is doing fairly well. She is tolerating the test prior. Has not had any reactions like she was having before. Still has raspiness of the voice. Indeed he may be the inhalers. Although they seem to be working well for her. She does have a b arium swallow scheduled soon to see if she has any potential reflux that may be contributing to her hoarseness. In the meantime the patient will be followed up at for her yearly follow-up CT scan and likely bronchoscopy. 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 She has regained some back. 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 The patient will return in 3 4 months. If she has any issues prior to that she will call for an earlier assessment. She is also using his CPAP every night. CPAP therapy has been affecting beneficial she does use it for more than 4 hours a night. She is using a nasal pillow. Although it is irritating her nostrils. Will go ahead and see if we can get her nasal mask instead. She can also try cradle. 01/06/2025 she is here for pulmonary follow-up visit. Overall she is doing fairly well. She did follow-up in [place] and did have a CT scan of the chest and also bronchoscopy. They found that she had a component of tracheomalacia but minimal. And she did have an intervention. They also found that she has some atelectasis to the right base. And felt that this part is affecting her gas exchange. She continues use oxygen. She does have the concentrator at home and has a portable tanks that she gets to [facility]. Although it has been difficult for her to carry because of the difficulty carrying tanks. Therefore will request a portable oxygen concentrator 2 L pulse she can using the meantime. The patient also continues to use her CPAP. The CPAP therapy continues to be affecting beneficial. She does use it for more than 4 hours a night. In addition to that she is on her allergy medication and also her asthma medications she continues to be on test by every month with good results. Right now she is consider having plastic surgery for her abdomen. She needed a preop clearance letter which I provided her otherwise the patient is doing well will follow-up in 2-3 months. 03/01/2025 the patient is here for pulmonary follow-up visit. She has been noti cing increasing chest congestion specially after having a bronchoscopy in [place]. She also been a little more hoarse. She feels it is mainly in the middle the chest. She is bringing up some phlegm yellowish in color. Moderate severity. Denies any fevers or chills. After the bronchoscopy she did have some fevers but less typical. She did have significant secretions. She also had a chest x-ray with evidence of atelectasis or opacity in the right lower lobe. She will be following up in [place] soon. Otherwise will repeat the x-ray here to make sure that things are opening up. We could be mucus plugging. Therefore will start her back on azithromycin 3 times a week and also she should be on Daliresp. It was prescribed but she had not been taking it. Explained to her would help with chronic bronchitis and does which she has and it would be helpful for her to do it. The patient also has been using her oxygen. Oxygen therapy has been affecting beneficial. She has had shoulder surgery and now recently elbow surgery and difficult time caring any oxygen tanks. She will benefit from a portable oxygen concentrator that will provide better portability outside of the home. She uses a 2 L pulse with activity. It is likely because of the atelectasis in the opacity in the right base that her gas exchange is impaired and that is what she needs the oxygen. Therefore, she will return in after 6 months of therapy will repeat an x-ray. She also has an appointment to go back to [place]. In the meantime she has been using the CPAP. CPAP therapy has been affecting beneficial. She does use it for more than 4 hours a night. 05/26/2025 the patient is here for a pulmonary follow-up visit. She has had a very eventful few months. She did underwent a abdominal surgery and the surgery was complicated by poor healing and subsequently necrotic tissue. She did required debridement and now has a wound VAC. she has been followed closely by Wound Care. Respiratory garcia the patient has been doing okay although does have a chronic cough. Will try to minimize cough specialists she is trying to heal from the wound. In the meantime she does have her oxygen that she uses with ac tivity. She is requesting a POC. Will have her come in for 6 minute walk test at some point whenever she feels better in order to see if she qualifies for 1. She will continue her current respiratory therapy. Will follow-up in 2-3 months. REPLACED BY [facility] Medical History (System 02/10/25 @ 16:16 by Deidra Melendez) Atelectasis Laryngitis Dysphagia Rib fracture Rib fracture Cough Chronic restrictive lung disease [id number] syndrome CJ (obstructive sleep apnea) CJ on CPAP Diabetes Sjogrens syndrome Lesion of bronchus Pneumonia Asthma Tracheobronchomalacia COVID-19 Surgical History (System 02/10/25 @ 16:16 by Deidra Melendez) History of carpal tunnel surgery of left wrist History of bronchoscopy History of endometrial ablation Hx of tubal ligation Family History Mother Asthma Father Diabetes Social History Household Members: Spouse and Children Alcohol intake: never Patient Tobacco Use Status: Former Tobacco user Tobacco use type: Cigarette Years Smoked: 2-3 yrs Second Hand Smoke Exposure: No Review of Systems Const Denies chills, Denies fatigue, Denies fever(s), Denies weight gain and Denies weight loss Eyes Reports as per HPI and Reports change in vision ENT Denies dizziness and Denies lip swelling Card Denies chest pain, Denies leg edema, Denies lightheadedness, Denies palpitations, Denies dyspnea on exertion, Denies orthopnea and Denies other Resp Reports change in phlegm color, Reports chest congestion, Reports cough, Denies dyspnea on exertion and Denies wheezing GI Denies hematochezia and Denies change in stool character Musc Denies abnormal gait, Denies muscle weakness, Denies numbness, Denies radiating pain into limb and Denies tingling Skin/Breast Denies rash Neuro Denies abnormal gait, Denies dizziness, Denies numbness and Denies tingling Psych Denies no additional complaints Endo Denies fatigue and Denies palpitations Anatoliy/Lymph Denies easy bleeding and Denies lymphadenopathy Aller/Immun Denies lip swelling and Denies wheezing Physical Exam Vital Signs: Last Vital Signs Pulse 84 05/26/25 13:04 BP 120/74 05/26/25 13:04 Pulse Ox 98 05/26/25 13:04 Oxygen Delivery Method Room Air 05/26/25 13:04 BMI result Body Mass Index 28.8 Const General: alert; No in distress HEENT Head: Yes normocephalic Throat: Yes posterior oropharynx abnormal ( erythematous), Yes postnasal drainage and No uvular edema Neck Neck: Yes normal visual inspection, Yes full ROM, Yes no lymphadenopathy and Yes lymphadenopathy Chest Chest palpation & inspection: normal inspection of the chest Resp Effort & Inspection: normal respiratory effort and No prolonged expiratory phase Auscultation: no wheezes and diminished lung sounds Cardio Rate: regular rate Rhythm: regular rhythm Heart sounds: S1 normal heart sound present and S2 normal heart sound present GI Inspection: Yes other (wound vac) Palpation (GI): Soft to palpation Auscultation: normal bowel sounds Skin General skin exam: rashes and/or lesions noted Extrem General: No cyanosis and Yes edema Assessment & Plan Assessment & Plan (1) Asthma: Comment: s/p thermoplasty Code(s): J45.909 - Unspecified asthma, uncomplicated Category: Medical Qualifiers: Asthma severity: severe Asthma persistence: persistent Asthma complication type: with acute exacerbation Qualified Code(s): J45.51 - Severe persistent asthma with (acute) exacerbation (2) Chronic restrictive lung disease: Code(s): J98.4 - Other disorders of lung Category: Medical (3) CJ (obstructive sleep apnea): Code(s): G47.33 - Obstructive sleep apnea (adult) (pediatric) Category: Medical (4) Sjogrens syndrome: Comment: ++SSa dx around 2017 HCQ 2017 Code(s): M35.00 - Sjogren syndrome, unspecified Category: Medical Qualifiers: Sjogren's organ involvement: keratoconjunctivitis Qualified Code(s): M35.01 - Sicca syndrome with keratoconjunctivitis (5) Tracheobronchomalacia: Comment: 2019: treated with tracheoplasty in [place] Code(s): J39.8 - Other specified diseases of upper respiratory tract Category: Medical (6) Atelectasis: Code(s): J98.11 - Atelectasis Category: Medical Plan continue Tezspire Continue Breo, incruse Continue APAP, trial Nasal mask Xopenex - The patient cannot tolerate albuterol due to significant adverse effects with tachycardia at tremulousness and agitation PPI reflux diet F/U at [facility] continue oxygen: requesting POC 2L/pulse for better portability outside of the home. Difficult time with oxygen tanks with her orthopedic surgeries. F/U 3 months Medications: New PNV cmb#95-ferrous fumarate-FA 28 mg iron- 800 mcg 1 tab PO DAILY 30 tabs 11RF 30 days ferrous sulfate (Feosol) 325 mg PO DAILY 30 tabs 3RF 30 days codeine-guaifenesin 10-100 mg/5 mL 10 mL PO Q6H PRN 300 mL 0RF cough 10 days Coding Level of Care Code Est Pt Level 4 (53275) Complex EM visit Add On G2211 Diagnoses Severe persistent asthma with acute exacerbation J45.51 Asthma severity: severe Asthma persistence: persistent Asthma complication type: with acute exacerbation Chronic restrictive lung disease J98.4 CJ (obstructive sleep apnea) G47.33 Sjogren's syndrome with keratoconjunctivitis sicca M35.01 Sjogren's organ involvement: keratoconjunctivitis Tracheobronchomalacia J39.8 Atelectasis J98.11 Time Spent (min) 18
--- OUTSIDE RECORDS SUMMARY | 2025-05-26 13:04 | XMS_ITS | Clinical Summary ---
Author Organization [facility] Address [address] [place] [address] Phone Care Team Providers Care Powder Mill Operator Name Role Phone Unavailable Primary Care Provider [...] to be seen for PM at [facility], got injections, not better, ref to Ortho [...] on 09 January 2016 14:38 Encounter info: [id number], GARCIA MRI [facility], 01/08/2016 - 01/15/2016 * Final Report * Reason For Exam rt shoulder pain RCT;rt shoulder pain RCT RESULT: MRI Joint Ext Upper W/O Contrast Right [facility] VISIT NUMBER :[id number] Patient Name : Sade Izaguirre Date of : 1970 Date of Exam : 01/08/2016 Referring Physician : GINA CROFT [address], Attn: [place] [address] Exam : MR - SHOULDER (C-) CPT 74671 - RIGHT Room Description : [facility] Espr 2 1.5 Technique : Ax [...] 02/05/2023 08/21/2023 Overview (08/21/2023): Severe, follows at [facility] Was told too young for TKR [...] 08/01/2021 08/01/2021 Overview (08/01/2021): MRI done at [facility] 11.15.14 Shoulder pain 08/01/2021 08/01/2021 Overview (08/01/2021): Used to be seen for PM at [facility], got injections, not better, ref to Ortho [...] on 09 January 2016 14:38 Encounter info: [id number], [facility], 01/08/2016 - 01/15/2016 * Final Report * Reason For Exam rt shoulder pain RCT;rt shoulder pain RCT RESULT: MRI Joint Ext Upper W/O Contrast Right [facility] VISIT NUMBER :[id number] Patient Name : Sade Izaguirre Date of : 1970 Date of Exam : 01/08/2016 Referring Physician : GINA CROFT [address], Attn: [place] [address] Exam : MR - SHOULDER (C-) CPT 71651 - RIGHT [facility] : Ax [...] 08/01/20 21 Polyp of colon 07/24/2018 08/01/2021 Sj gren's syndrome 07/24/2018 08/01/2021 Obstructive sleep apnea syndrome 07/13/2018 08/01/2021 History of operative procedure on knee 01/18/2016 08/01/2021 Overview (08/01/2021): 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 History of procedure 09/08/2015 021 Overview (08/17/2024): BILATERAL MAMMOGRAM SCREENING DONE AT [facility] BREAST & WELLNESS RESULTS WAS SENT [...] Diabetes: Hemoglobin A1C 06/22/2024 03/22/2024 Influenza Vaccine (#1) 2025 3, 08/06/2022, 10/23/2021, Additional history exists Pneumococcal Vaccine: 50+ Years Completed 3, 05/30/2009 Pneumococcal Vaccine: Peds ( 0 to 5 Years) and At-Risk Patients (6 to 49 Years) Discontinued 04/01/2023, 05/30/2009 Insurance Medicaid [place] Medicaid [place]
--- OUTSIDE RECORDS SUMMARY | 2025-05-26 13:04 | XMS_ITS | Clinical Summary ---
Author Organization [facility] [facility] Address [address] [place] [address] Care Team Providers Care Night Patrol Inspector Name Role Phone Name, Charbel CARRILLO Primary Care Provider [phone] Surgical History Surgery Date Site/Laterality Comments SECTION PROCEDURE: HISTORICAL ; COMMENT: 6 CHOLECYSTECTOMY PROCEDURE: HISTORICAL CHOLECYSTECTOMY APPENDECTOMY PROCEDURE: HISTORICAL APPENDECTOMY Medical History Medical History Date Comments Carpal tunnel syndrome 09/09/2006 DX:Carpal tunnel syndrome Anxiety 07/02/2007 DX:Anxiety Asthma 09/09/2006 DX:Asthma Bipolar I disorder (CMS/HCC V24, CMS/HCC V28) 07/02/2007 DX:Bipolar I disorder ([facility]) Chronic knee pain 07/24/2018 DX:Chronic kne e [...] and At-Risk Patients (6 to 49 Years) (2 of 2 - PCV) 05/30/2010 [...] Vaccine ( season) 2024 Influenza Vaccine (#1) 2025 4, 12/05/2009, 12/05/2009, Additional history exists HIB [...] Documents on File Type Date Recorded Patient Loan Services Professional Expl anation Health Care Decision (hx) 12/16/2019 [...] (hx) 12/14/2019 AD RYAN DIRECTIVE Care Teams Night Patrol Inspector Relationship Specialty Start Date End Date Name, MD Charbel [address] [place], [place] PCP - General Internal Medicine 09/04/06
--- OUTSIDE RECORDS SUMMARY | 2025-05-26 13:04 | XMS_ITS | Clinical Summary ---
Author Organization [facility] Address [address] [place] [address] Care Team Providers Care Distribution Systems Superintendent Name Role Phone Noemí Umana PA-C Primary Care Provider [phone] Source Comments PLEASE NOTE, if this patient [...] mcg/actuation inhalerIndication s:Mild persistent asthma without complication ([facility]) Inhale 1 Puff into the lungs 2 [...] Diagnosed Date H/O arthroscopic right knee surgery. [facility] Dr Maxwell. 04/17/15. 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 Hx of screening mammography 09/01/15 09/08/2015 Overview (09/08/2015): BILATERAL MAMMOGRAM SCREENING DONE AT [facility] RESULTS WAS SENT TO MEDICAL RECORDS TO BE SCAN HTN (hypertension) 02/24/2015 Asthma ([facility]HS-HCC) 02/24/2015 Bipolar disorder ([facility]) Overview (02/24/2015): [facility] Fib[facility]algia Right shoulder pain Overview (01/18/2016): Used to be seen for PM at [facility], got injections, not better, ref to Ortho [...] on 09 January 2016 14:38 Encounter info: [id number], [facility] MRI [facility], 01/08/2016 - 01/15/2016 * Final Report * Reason For Exam rt shoulder pain RCT;rt shoulder pain RCT RESULT: MRI Joint Ext Upper W/O Contrast Right [facility] VISIT NUMBER :[id number] Patient Name : Sade Izaguirre Date of : 1970 Date of Exam : 01/08/2016 Referring Physician : GINA MAXWELL [address], Attn: [place] [address] Exam : MR - SHOULDER (C-) CPT 31788 - RIGHT Room Description : [facility] 2 1.5 Technique : Ax [...] disc, cervical Overview (08/31/2015): MRI done at [place] 11.15.14 Hyperlipidemia Social History Tobacco Use Types [...] 68 01/18/2016 11:43 AM EST Temperature 37.1 C (98.7 F) 01/18/2016 11:43 AM EST Respiratory Rate 14 01/18/2016 11:43 AM EST Oxygen Saturation - - Inhaled Oxygen Concentration - - Weight 78.7 kg (173 lb 9.6 oz) 01/18/2016 11:43 AM EST Height 170.2 cm (5' 7 ) 01/18/2016 11:43 AM EST Body Mass Index 27.19 01/18/2016 11:43 AM EST Plan of Treatment Not on file Insurance [employer] Care Teams Distribution Systems Superintendent Relationship Specialty Start Date End Date Noemí Umana PA-C [address] [place] [address] PCP - General 01/12/19
--- OUTSIDE RECORDS SUMMARY | 2025-05-26 13:04 | XMS_ITS | Encounter Summary ---
Author Organization [employer] Address [address] [place] [address] 7t [place] [address] Care Team Providers Care Net Programmer Name Role Phone Name, Charbel CARRILLO Primary Care Provider [phone] Мария Gudino PharmD Unavailable [phone] Robin Muniz RN Unavailable [phone] Leann Edgar Unavailable Encounter Details Date Type Department Care Team (Late st Contact Info) Description 04/21/2023 Abstract [facility] MEDICINE [address] [place], [place] [id number] Name, MD Charbel [address], [place] [id number] Social History Tobacco Use Types Packs/Day Years [...] Care Team (Late st Contact Info) Description 05/30/2025 1:00 PM EDT Telemedicine [address] [address] Roz Le, ARLINE 07/08/2025 11:15 AM EDT Office Visit [address] [address] Name, MD Charbel [address] [place] [address] documented as of this encounter Visit Diagnoses Not on filedocumented in this encounter Additional Health Concerns Assessment Noted Time PHQ-9 Depression Total Score: 0 10/23/20 3:25 PM EST documented as of this encounter Care Teams Net Programmer Relationship Specialty Start Date End Date Name, MD Charbel [address] [place] [address] PCP - General Family Medicine 02/26/16 Мария Gudino PharmD [address] [place] [address] Pharmacist Internal Medicine 04/29/23 Robin Muniz, ARLINE [address] [place] [address] Registered Nurse Family Medicine 04/22/25 Leann Edgar [facility]25 [facility] documented as of this encounter
--- OUTSIDE RECORDS SUMMARY | 2025-05-26 13:04 | XMS_ITS | Data Portability ---
Author Organization [facility] Surgeons [facility], [facility] Address [address] [place] [address] Care Team Providers Care Long Chain Beamer Name Role Phone NAME, HUBERT Referring Provider [...] of R cubital tunnel; date of surgery 11/29/24 Custom molded orthosis: none Treatment: PROM, STRENGTHENI NG, SCAR MASSAGING To begin in 2 weeks 2024 025 [email or web address] Not available 14:16:07 Procedures None recorded. Surgeries carpal tunnel release (SURG) 2023 025 [facility] 15 [facility], [address] [place], [address], 01/14/202 5 11:50:41 Imaging XR, wrist, 2 view - 2V LT TMJ, F/U, RM 116 2023 024 [facility] Office, [address], [place], [address], 4 11:11:20 Medication Orders None recorded. Patient TargetsNo targets recorded. Patient InstructionsNo instructions recorded. 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 [facility] for Carpal tunnel syndrome of right wrist [...] a4ajBk vP9nXo QUaueC m3YtLR FvZlgJ JJ8mAn HZtai3 8r4714 AC0Kqa X6CUKO hKiQtr MwF INTERFACE [facility] [address], [place], [address], 10/08/2024 11:11:21 10/08/20 24 10/08/2024 XR, wrist , 2 view http:/ [email or web address] ?Encry pted=s hAaTro YD8dLq bEUv6g %2BXZw aYqtaq 0bqfl% 2Fg9IQ a4ajBk vP9nXo QUaueC m3YtLR FvZlgJ JJ8mAn HZtai3 2r6339 AC0Kqa X6CUKO hKiQtr MwF INTERFACE [facility] [address], [place], [address], 10/08/2024 11:11:23 Result Notes Documentation Provider Name and Address Organization Details Recorded Time Xr, Wrist, 2 View : [email or web address]? Encrypted=twVwBmuJQ3iOzrN Uv6g%5FNScsVopmn1iatr%2Fg 4QZd0erLnnT9qAgOUilyAb3Gm PHNxPgcRLB3tEcNMkib54g970 9CE7UgjS6XOSVxSdWlgYeR Not Available [facility] 10/08/2024 11:11: 22 Xr, Wrist, 2 View : [email or web address] Encrypted=isVoExmSZ1yJzbV Uv6g%3ZWMyhZfdmp0lcce%2Fg 6MHi4jzVatD0sXuSLfyvGo8Vg LLYsOrlVTN5nLxRComt32a984 4VL2NoiS6CYWVbOdJtlMfJ Not Available [facility] 10/08/2024 11:11: 24 Problems Name Problem SNOMED Code Status Onset Date Resolution Date Notes Provider Name and Address Organization Details Recorded Time No complaints 038922155 Active Status : 'A'; Not Available [facility] 09:11:19 Carpal tunnel syndrome of right wrist 0362257584681 08 Active 2024 Dylan Stanford PA-C [address], [place], [address] , [facility] 5 11:43:11 Entrapment of right ulnar nerve at elbow 1235908064 Active 2024 Dylan Stanford PA-C [address], [place], [address] , [facility] 5 11:43:11 Impingemen t syndrome of right shoulder region 1268526256070 02 Active 2023 Gloria Sullivan PA-C [address], [place], [address] , [facility] 4 12:36:41 Neck pain 58812716 Active 2023 Gloria Sullivan PA-C [address], [place], [address] , [facility] 4 12:36:45 Problem Notes None recorded. Procedures Surgical History Date Name Laterality Status Provider Name and Address Organization Details Recorded Time 5 [facility] completed Clarence Lopez MD [address], [place], [address], [facility] 02/23/2025 13:08:04 4 [facility] Inj completed Clarence Lopez MD [address], [place], [address], [facility] 10/09/2024 13:06:55 4 [address] Therapeutic Exercise (1:1) completed Rashid Chen PTA [address], [place], [address], [facility] 08/06/2024 13:57:40 4 [address]: Hot or Cold Pack completed Rashid Chen PTA [address], [place], [address], [facility] 08/06/2024 13:57:40 4 Sports Knee 4&1 completed William Hutchins MD [address], [place], [address], [facility] 08/08/2024 15:45:17 4 52267 Therapeutic Exercise (1:1) completed Rashid Chen PTA [address], [place], [address], [facility] 07/30/2024 13:44:11 4 13210: Hot or Cold Pack completed Rashid Chen PTA [address], [place], [address], [facility] 07/30/2024 13:47:22 4 [address]06[address] Therapeutic Exercise (1:1) completed Rashid Chen, CREDIT COLLECTOR [address], [place], [address], [facility] 07/22/2024 14:04:46 4 79127: Manual therapy completed Rashid Chen CREDIT COLLECTOR [address], [place], [address], [facility] 07/22/2024 14:04:46 4 92153 Therapeutic Exercise (1:1) completed Rashid Chen CREDIT COLLECTOR [address], [place], [address], [facility] 07/20/2024 13:40:04 4 04208: Manual therapy completed Rashid Chen PTA [address], [place], [address], [facility] 07/20/2024 13:40:04 4 27896 Therapeutic Exercise (1:1) cancelled Kevin Cullen, PT [address], [place], [address], [facility] 07/15/2024 06:59:17 4 86609: Manual therapy cancelled Kevin Cullen, PT [address], [place], [address], [facility] 07/15/2024 06:59:17 4 19173 Therapeutic Exercise (1:1) completed Rashid Chen PTA [address], [place], [address], [facility] 07/06/2024 14:33:33 4 72574: Manual therapy completed Rashid Chen, CREDIT COLLECTOR [address], [place], [address], [facility] 07/06/2024 14:33:38 4 44371 Therapeutic Exercise (1:1) completed Rashid Chen, CREDIT COLLECTOR [address], [place], [address], [facility] 07/02/2024 14:31:30 4 78778: Manual therapy completed Rashid Chen, CREDIT COLLECTOR [address], [place], [address], [facility] 07/02/2024 14:31:47 4 08508 Therapeutic Exercise (1:1) completed Kevin Suarezmarnie, PT [address], [place], [address], [facility] 06/30/2024 15:07:16 4 27065: Low complexity PT Eval completed Kevin Suarezmarnie, PT [address], [place], [address], [facility] 06/30/2024 15:07:19 Imaging Results None recorded. Procedure Notes None recorded. Medical Equipment None Reported. Allergies Allergen ID Allergen Name Allergen Category Reaction Reaction Severity Criticality Documentation Date Start Date Code Code System Note Provider Name and Address Organization Details Recorded Time 30345 Product containin g penicilli n (product) medicatio n Not available Not available Not available 01/19/20242002 02610 8001 SNOMED Aller gyRea ction : 'NO SYMPT OM SPECI FIED' ; Not Available [facility] 4 10:54:25 57431 Naprosyn medicatio n Not available Not available Not available 01/19/20242014 2 RxNorm Aller gyRea ction : 'Naus ea/Vo mitin g/Lili rrhea '; Not Available [facility] 4 10:54:25 06650 latex environme nt,medica tion Not available Not available Not available 01/19/20242003 82064 91 RxNorm Aller gyRea ction : 'Skin React ion'; Not Available [facility] 4 10:54:25 95060 renan allergeni c extract food,medi cation Not available Not available Not available 01/19/20242021 64782 04 RxNorm Not Available [facility] 4 10:54:25 81494 Tylenol medicatio n Not available Not available Not available 01/19/20242021 05361 3 RxNorm Not Available [facility] 4 10:54:25 25484 ibuprofen medicatio n Not available Not available Not available 01/19/20242021 5640 RxNorm Not Available [facility] 4 10:54:25 97134 iodine medicatio n Not available Not available Not available 01/19/20242021 5933 RxNorm Not Available [facility] 4 10:54:25 66219 Shellfish (substanc e) food,medi cation Not available Not available Not available 01/19/20242021 18585 9006 SNOMED Not Available [facility] 4 10:54:25 Medications Name Sig Start Date Stop Date Status Note LastModified by Organization Details LastModified Time freestyle lite w/device kit 03/17 completed Not Available Not Available Not Available freestyle lancets misc 03/17 completed Not Available Not Available Not Available freestyle lite test strp 03/17 completed Not [...] DISCARD PATCH WITHIN 12 HOURS DIRECTED BY PERSCRIBE R active Not Available Not Available No t [...] Not Available Not Available Not Available FreeStyle Cameron Lite kit TEST BLOOD SUGAR THREE TIMES [...] Not Available No t Available Artificial Tears (cu451-bpxz omell-glyce rin) 1 %-0.2 %-0.2 % eye [...] Updated DateTime 12/14/2024 165.1 cm 28.3 kg/m2 14179.7 g Dipti bennett [facility] 12/14/2024 14:10:24 Date Recorded Body height Body mass index (BMI) Body weight Provider Name and Address Organization Details Last Updated DateTime 01/12/2025 165.1 cm 28.3 kg/m2 09751.7 g MALINI COLEMAN [facility] 01/12/2025 14:46:19 Date Recorded Body height Body mass index (BMI) Body weight Provider Name and Address Organization Details Last Updated DateTime 02/23/2025 165.1 cm 28.3 kg/m2 07298.7 g MALINI COLEMAN [facility] 02/23/2025 11:55:02 Date Recorded Body height Body mass index (BMI) Body weight Provider Name and Address Organization Details Last Updated DateTime 09/27/2024 165.1 cm 28.3 kg/m2 64782.7 g MALINI COLEMAN [facility] 09/27/2024 13:06:37 Date Recorded Body height Body mass index (BMI) Body weight Provider Name and Address Organization Details Last Updated DateTime 10/08/2024 165.1 cm 28.3 kg/m2 98656.7 g MALINI COLEMAN [facility] 10/08/2024 10:38:46 Social History Question Answer Notes LastModified by Organizat ion Details LastModified Time Tobacco Smoking Status Never Smoker ORESTES padilla [facility] 04/29/2024 16:49:14 Which Of Your Hands Is Dominant? Right [email or web address] Information not available 04/01/2024 What Is Your Relationship Status? Information not available 04/29/2024 Sex: Unknown Functional Status Question Answer Note LastModified by Organizat ion Details LastModified Time Do you use any illicit or recreational drugs? No Information not available 04/29/2024 Do you or have you ever used any other forms of tobacco or nicotine? No Information not available 04/29/2024 What is your level of alcohol consumption? None Information not available 04/29/2024 Mental Status None recorded. Family History Nothing Reported. Medical History Condition Response Allergies/Hayfever N Coronary Artery Disease N Anxiety/Depression Y Breathing or lung disorders Y Emphysema N Nerve Disorders N Thyroid Problems N COPD Y Pacemaker N Anemia Y Kidney/Bladder Problems N Vascular Disease N Heart Trouble N Heart Attack (OK) N Gastrointestinal Disease Y Cholesterol Y Diabetes [...] SNOMED-CT Code Diagnosis ICD10 Code Diagnosis Note [id number] [facility] [address] [place] [address] 03/11/2024 14:23:48 03/25/2024 12:18:00 Pain of left knee region 2722815936 28939 M25.562 Contusion of left knee 8028565255 4581796 S80.02XD [id number] [facility] [address] [place] [address] 03/17/2024 12:59:12 03/30/2024 10:59:28 Pain of right knee joint 2798993204 91133 M25.561 Osteoarthr itis of right knee joint 8283329944 19936 M17.11 [id number] MD [address] [address] [place] [address] 03/30/2024 14:57:25 04/09/2024 12:11:46 Pain of right knee joint 1014591469 87498 M25.456 [id number] Gloria Sullivan PA-C [facility] [address] [place] [address] 04/01/2024 09:55:09 04/15/2024 09:23:33 Pain of right shoulder joint 1085936380 3796076 M25.511 Impingemen t syndrome of right shoulder region 4285389877 38464 M75.41 Neck pain 49078933 M54.2 [id number] MD [address] [address] [place] [address] 04/30/2024 10:47:39 05/21/2024 15:38:34 Impingement syndrome of right shoulder region 7706945072 66250 M75.41 [id number] Gloria Sullivan PA-C [facility] [address] [place] [address] 05/31/2024 13:58:05 06/15/2024 16:02:00 Impingement syndrome of right shoulder region 4698054440 28905 M75.41 [id number] Clarence Lopez MD [facility] [address] [place] [address] 06/21/2024 10:45:36 07/16/2024 08:12:46 Ulnar nerve entrapment at elbow 861950290 G56.21 Carpal july omar syndrome of right wrist 1117932248 24731 G56.01 [id number] Kevin Cullen PT [facility] [address] [place] [address] 06/30/2024 13:50:17 06/30/2024 15:21:35 Tendinitis of right shoulder 1681603608 392947 M75.91 [id number] Gloria Sullivan PA-C [facility] [address] [place] [address] 07/01/2024 13:48:28 07/21/2024 10:15:42 Postoperative care 098361306 Z48.89 [id number] Rashid Gustavo, CREDIT COLLECTOR [facility] [address] [place] [address] 07/02/2024 13:46:11 07/02/2024 14:33:13 Tendinitis of right shoulder 1102746902 803346 M75.91 [id number] Rashid Chen CREDIT COLLECTOR [facility] [address] [place] [address] 07/06/2024 13:38:15 07/06/2024 17:20:16 Tendinitis of right shoulder 5371987306 276907 M75.91 [id number] Rashid Chen CREDIT COLLECTOR [facility] [address] [place] [address] 07/20/2024 13:36:29 07/20/2024 14:54:17 Tendinitis of right shoulder 6458452190 281631 M75.91 [id number] Rashid Chen CREDIT COLLECTOR [facility] [address] [place] [address] 07/22/2024 13:53:19 07/22/2024 15:05:38 Tendinitis of right shoulder 7101144286 823713 M75.91 [id number] Rashid Chen CREDIT COLLECTOR [facility] [address] [place] [address] 07/30/2024 12:54:12 07/30/2024 15:13:09 Tendinitis of right shoulder 7137130327 702031 M75.91 [id number] William Hutchins MD [facility] [address] [place] [address] 08/02/2024 13:45:51 08/24/2024 08:18:51 Pain of right knee joint 5996645208 31482 M25.805 [id number] Rashid Chen CREDIT COLLECTOR [facility] [address] [place] [address] 08/06/2024 13:48:35 08/06/2024 14:48:41 Tendinitis of right shoulder 6641353508 794430 M75.91 [id number] Clarence Lopez MD [facility] [address] [place] [address] 09/27/2024 12:57:16 10/26/2024 11:57:59 Entrapment of right ulnar nerve at elbow 1387510854 G56.21 Carpal july omar syndrome of right wrist 3338928139 66481 G56.01 [id number] Clarence Lopez MD [facility] [address] [place] [address] 10/08/2024 10:29:26 11/08/2024 10:20:09 Pain of left wrist 9135758664 35528 M25.532 Arthritis of first carpometacarpal joint of left hand 0411775521 350236 M18.12 [id number] Dylan Stanford PA-C [facility] [address] [place] [address] 12/14/2024 14:00:06 01/05/2025 14:16:07 Entrapment of right ulnar nerve at elbow 5709499342 G56.21 Carpal july omar syndrome of right wrist 9260453397 53163 G56.01 [id number] Clarence Lopez MD [facility] [address] [place] [address] 01/12/2025 14:37:44 01/27/2025 17:55:31 Entrapment of left ulnar nerve at elbow 6086709703 G56.22 Carpal july omar syndrome of left wrist 2768142866 91872 G56.02 [id number] Clarence Lopez MD [facility] [address] [place] [address] 02/23/2025 11:37:23 03/09/2025 11:20:57 Arthritis of first carpometacarpal joint of left hand 1138165899 307162 M18.12 Health Concerns Section Related Observation LastModified by Organization Detai ls LastModified Time None Recorded Concern Status LastModified by Organization Details LastModified Time None Recorded Advance Directives Directive None Recorded Payers Insurance Date Sequence Insurance Name Policy Number Policy Cifuentes Covered Member ID Cifuentes Member ID Guarantor Name 02/23/2025 1 [place] [facility] Sade Izaguirre [id number] Sade Izaguirre 08/16/2024 [employer] Sade Izaguirre Notes Date Note Type Note [...] reviewed, updated and is located in the patient s chart.Examination: Healthy appearing patient in no [...] consented to the procedure. Clarence Lopez MD [address] [place] [address], [place], [address], [facility] 09/27/2024 16:30:03 10/08/2024 text/html DIAGNOSIS: [...] X-rays ordered, obtained, and reviewed today at [facility]: PA and lateral left TM joint revealed [...] Clarence Lopez M.D. Clarence Lopez MD [address], [place], [address], [facility] 10/09/2024 13:07:51 12/14/2024 text/html I [...] or drainage reported. Dylan Stanford PA-C [address], [place], [address], [facility] 12/14/2024 14:29:59 01/12/2025 text/html Diagnosis: Statu s post decompression right cubital tunnel and right carpal tunnel The patient returns at our request. She reports that she is seeing some improvement in her situation. Past family, medical, social history and review of systems has been reviewed, updated and is located in the patient s chart. Examination: Healthy appearing patient in [...] directed. Clarence Lopez MD [address] [facility] [[email or web address] [address], [place], [address], [facility] 01/15/2025 15:00:08 02/23/2025 text/html DIAGNOSIS: [...] M.D. Clarence Lopez MD [address] [facility] [[email or web address] [address], [place], [address], [facility] 02/23/2025 13:08:31 OBGyn Episode No OBEpisode recorded.
== END 2025-05-26 14:12 | disposition home or self-care (01) ==
LOC: HO.HPS 13:01
PROVIDERS: PCP Internal Medicine Geriatric Medicine; Visit Provider Hospitalist
DX: J45.51 Severe persistent asthma with (acute) exacerbation (principal); J98.4 Other disorders of lung; G47.33 Obstructive sleep apnea (adult) (pediatric); M35.01 Sjogren syndrome with keratoconjunctivitis; J39.8 Other specified diseases of upper respiratory tract; J98.11 Atelectasis
CPT/HCPCS: 99214

== ENCOUNTER → 2025-05-26 13:00 | Outpatient (BNVA) | payer MEDICAID, SELFPAY | PROVIDERS: PCP Internal Medicine Geriatric Medicine; Visit Provider Hospitalist | DX: J45.51 Severe persistent asthma with (acute) exacerbation (principal); J98.4 Other disorders of lung; G47.33 Obstructive sleep apnea (adult) (pediatric); M35.01 Sjogren syndrome with keratoconjunctivitis; J39.8 Other specified diseases of upper respiratory tract; J98.11 Atelectasis | CPT/HCPCS: 99212 ==

== ENCOUNTER 2025-06-16 12:50 | Outpatient (AMB) | payer MEDICAID, SELFPAY ==
--- OUTSIDE RECORDS SUMMARY | 2025-06-16 12:59 | XMS_ITS | Clinical Summary ---
Author Organization [facility] ity Address [address] [place] [address] Care Team Providers Care Gas Technician Name Role Phone Name, Charbel CARRILLO Primary Care Provider [phone] Surgical History Surgery Date Site/Laterality Comments SECTION PROCEDURE: HISTORICAL ; COMMENT: 6 CHOLECYSTECTOMY PROCEDURE: HISTORICAL CHOLECYSTECTOMY APPENDECTOMY PROCEDURE: HISTORICAL APPENDECTOMY Medical History Medical History Date Comments Carpal tunnel syndrome 09/09/2006 DX:Carpal tunnel syndrome Anxiety 07/02/2007 DX:Anxiety Asthma 09/09/2006 DX:Asthma Bipolar I disorder (CMS/HCC V24, CMS/HCC V28) 07/02/2007 DX:Bipolar I disorder ([facility]) Chronic knee pain 07/24/2018 DX:Chronic kne [...] Panel) 10/30/2022 Colorectal Cancer Screening: Colonoscopy 10/30/2022 HIV Screening 10/30/2022 Hepatitis C Screening 10/30/2022 Social Influencers of Health Screening 10/30/2022 Hypertension/CHF/CAD Annual BMP Blood Test 11/01/2022 COVID-19 Vaccine ( season) 2024 Depression Screening 11/17/2024 Influenza Vaccine (#1) 2025 4, 12/05/2009, 12/05/2009, [...] Documents on File Type Date Recorded Patient Academic Hospitalist Expl anation Health Care Decision (hx) 12/16/2019 [...] (hx) 12/14/2019 AD RYAN DIRECTIVE Care Teams Gas Technician Relationship Specialty Start Date End Date Name, MD Charbel [address] [place], [place] PCP - General Internal Medicine 09/04/06
--- OUTSIDE RECORDS SUMMARY | 2025-06-16 12:59 | XMS_ITS | Clinical Summary ---
Author Organization [facility] Address [address] [place] [address] Care Team Providers Care Plasma Specialist Name Role Phone Noemí Umana PA-C Primary Care Provider [phone] Source Comments PLEASE NOTE, if this patient [...] mcg/actuation inhalerIndication s:Mild persistent asthma without complication ([facility]) Inhale 1 Puff into the lungs [...] Diagnosed Date H/O arthroscopic right knee surgery. [facility] Dr Maxwell. 04/17/15. 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 Hx of screening mammography 09/01/15 09/08/2015 Overview (09/08/2015): BILATERAL MAMMOGRAM SCREENING DONE AT [facility] RESULTS WAS SENT TO MEDICAL RECORDS TO BE SCAN HTN (hypertension) 02/24/2015 Asthma (HHS-HCC) 02/24/2015 Bipolar disorder ([facility]) Overview (02/24/2015): [facility] Right shoulder pain Overview (01/18/2016): Used to be seen for PM at [facility], got injections, not better, ref to Ortho [...] on 09 January 2016 14:38 Encounter info: [id number], [place] [facility], [facility], 01/08/2016 - 01/15/2016 * Final Report * Reason For Exam rt shoulder pain RCT;rt shoulder pain RCT RESULT: MRI Joint Ext Upper W/O Contrast Right [facility] VISIT NUMBER :[id number] Patient Name : Sade Izaguirre Date of : 1970 Date of Exam : 01/08/2016 Referring Physician : GINA MAXWELL [address], Attn: [place] [address] Exam : MR - SHOULDER (C-) CPT 44943 - RIGHT Room Description : [facility] 2 1.5 Technique : Ax PD [...] disc, cervical Overview (08/31/2015): MRI done at [place] 11.15.14 Hyperlipidemia Social History Tobacco Use Types [...] on file Insurance [employer] Care Teams Plasma Specialist Relationship Specialty Start Date End Date Noemí Umana PA-C [address] [place] [address] PCP - General 01/12/19
--- OUTSIDE RECORDS SUMMARY | 2025-06-16 12:59 | XMS_ITS | Clinical Summary ---
Author Organization [facility] Address [address] [place] [address] Phone Care Team Providers Care Nuclear Medicine Technician Name Role Phone Unavailable Primary Care Provider [...] Used to be seen for PM at [facility], got injections, not better, ref to [...] on 09 January 2016 14:38 Encounter info: [id number], [place] [facility], 01/08/2016 - 01/15/2016 * Final Report * Reason For Exam rt shoulder pain RCT;rt shoulder pain RCT RESULT: MRI Joint Ext Upper W/O Contrast Right [facility] VISIT NUMBER :[id number] Patient Name : Sade Izaguirre Date of : 1970 Date of Exam : 01/08/2016 Referring Physician : GINA CROFT [address], Attn: [place] [address] Exam : MR - SHOULDER (C-) CPT [id number] - RIGHT Room Description : [facility] 2 1.5 Technique : Ax PD [...] 02/05/2023 08/21/2023 Overview (08/21/2023): Severe, follows at [facility] Was told too young for TKR Coronary [...] 08/01/2021 08/01/2021 Overview (08/01/2021): MRI done at [place] 11.15.14 Shoulder pain 08/01/2021 08/01/2021 Overview (08/01/2021): Used to be seen for PM at [facility], got injections, not better, ref to [...] on 09 January 2016 14:38 Encounter info: [id number], [place] [facility], 01/08/2016 - 01/15/2016 * Final Report * Reason For Exam rt shoulder pain RCT;rt shoulder pain RCT RESULT: MRI Joint Ext Upper W/O Contrast Right [facility] VISIT NUMBER :[id number] Patient Name : Sade Izaguirre Date of : 1970 Date of Exam : 01/08/2016 Referring Physician : GINA CROFT [address], Attn: [place] [address] Exam : MR - SHOULDER (C-) CPT [id number] - RIGHT [facility] Technique : Ax PD Fsat, [...] Overview (08/17/2024): BILATERAL MAMMOGRAM SCREENING DONE AT [facility] RESULTS WAS SENT [...] Discontinued 04/01/2023, 05/30/2009 Insurance Medicaid [place] Medicaid [place]
--- OUTSIDE RECORDS SUMMARY | 2025-06-16 12:59 | XMS_ITS | Encounter Summary ---
Author Organization [employer] Address [address] [place] [address] [address] [place] [address] Care Team Providers Care Supervisor Histology Name Role Phone Name, Charbel CARRILLO Primary Care Provider [phone] Мария Gudino PharmD Unavailable Robin Muniz RN Unavailable [phone] Leann Edgar Unavailable Encounter Details Date Type Department Care Team (Late st Contact Info) Description 04/21/2023 Abstract [facility] MEDIC[facility] [address] [place], [place] [id number] Name, MD Charbel [address] [place], [place] [phone] Social History Tobacco Use Types Packs/Day Years [...] Care Team (Late st Contact Info) Description 07/08/2025 11:15 AM EDT Office Visit [address] [address] Name, MD Charbel [address] [place] [address] 09/02/2025 11:00 AM EDT Telemedicine [address] [address] Roz Le, ARLINE documented as of this encounter Visit Diagnoses Not on filedocumented in this encounter Additional Health Concerns Assessment Noted Time PHQ-9 Depression Total Score: 0 10/23/20 3:25 PM EST documented as of this encounter Care Teams Supervisor Histology Relationship Specialty Start Date End Date Name, MD Charbel [address] [place] [address] PCP - General Family Medicine 02/26/16 Мария Gudino PharmD [address] [place] [address] Pharmacist Internal Medicine 04/29/23 Robin Muniz, ARLINE [address] [place] [id number] Registered Nurse Family Medicine 04/22/25 Leann Edgar [facility] documented as of this encounter
--- OUTSIDE RECORDS SUMMARY | 2025-06-16 13:00 | XMS_ITS | Clinical Summary ---
Author Organization [facility] Address [address] [place] [address] Phone Care Team Providers Care Treer Name Role Phone Name, Charbel CARRILLO Primary Care Provider [phone] Social History Tobacco Use Types Packs/Day Years Used Date Smoking Tobacco: Never Assessed Education Answer Date Recorded Are you interested in more education? Not on arlyn e 03/14/2023 Are you concerned about learning? Not on file 03/14/2023 No 03/14/2023 No 03/14/2023 Digital Access Answer Date Recorded No 04/15/2023 No 04/15/2023 No 04/15/2023 Reliable internet access at home? Not on file 04/15/2023 Device with a working camera? Not on file Comments Unknown Sex and Gender Information Value Date Recorded Sex Assigned at Not on file Legal Sex Female 1:21 PM EDT Gender Identity Not on file Sexual Orientation Not on file Plan of Treatment Health Maintenance Due Date Last Done Comments LIPID PANEL 1970 DEPRESSION SCREENING 1981 SMOKING Hx and SMOKELESS TOBACCO SCREENING 1982 HEPATITIS C SCREENING 1987 HIV ONE-TIME SCREENING (18-65 YEARS) 1987 PAP SMEAR 1990 MAMMOGRAM 2009 COLOGUARD 2014 COLONOSCOPY 2014 COLORECTAL CANCER SCREENING 2014 FIT TEST 2014 FOBT 2014 SIGMOIDOSCOPY 2014 VIRTUAL COLONOSCOPY 2014 COVID-19 VACCINE ( season) 2024 09/24/2023, 08/26/2022, 03/14/2022, Additional history exists Adult Td,Tdap Booster 11/03/2027 11/03/2017, 006 PNEUMOCOCCAL VACCINES (50+ years) Completed 04/01/2023, 05/30/2009 ZOSTER VACCINES Completed 07/07/2023, 04/01/2023 HEPATITIS A VACCINES Aged Out No long er eligible based on patient's age to complete this topic HIB VACCINES Aged Out No longer eligi ble based on patient's age to complete this topic MENINGOCOCCAL VACCINES (ACWY) Aged Out No longer eligible based on patient's age to complete this topic MENINGOCOCCAL VACCINES (B) Aged Out N o longer eligible based on patient's age to complete this topic Medical Devices Not on file Insurance C3 ACO C3 ACO C3 ACO C3 ACO C3 ACO C3 ACO C3 ACO C3 ACO Care Teams Treer Relationship Specialty Start Date End Date Name, MD Charbel [address] [place] [address] PCP - General Geriatric Psychiatry 08/13/18 Additional Source Comments The information contained in this document represents components of the legal health record. It is not the complete legal health record.[facility]
--- NOTE | 2025-06-16 13:15 | AM.OFFVISNUR ---
Intake Visit Reasons: [employer] L[employer] Concierge Required: No Allergies latex (LATEX) Allergy (Severe, Verified 06/16/25 13:15) RASH passion fruit (PASSION FRUIT) Allergy (Severe, Verified 06/16/25 13:15) ANAPHYLAXIS Penicillins (PCN) Allergy (Severe, Verified 06/16/25 13:15) ANAPHYLAXIS shellfish derived (SHELLFISH DERIVED) Allergy (Severe, Verified 06/16/25 13:15) MOUTH SWELLING, ITCHY acetaminophen (From TYLENOL) Allergy (Mild, Verified 06/16/25 13:15) UNKNOWN ibuprofen (IBUPROFEN) Allergy (Mild, Verified 06/16/25 13:15) HX ULCERS TOLD NOT TO TAKE iodine (IODINE) Allergy (Mild, Verified 06/16/25 13:15) ITCHY lisinopril Adverse Reaction (Severe, Verified 06/16/25 13:15) Rash metformin Adverse Reaction (Severe, Verified 06/16/25 13:15) Rash Medication List - Last Reconciled 06/16/25 by Sara Segovia, DREDGE PUMP OPERATOR artifi.tears(hypromellose)(PF) 1.7% 1 drp ophthalmic (eye) Q4-6H PRN 30 days [Atarax 50 mg PRN] benzonatate 200 mg PO BID PRN 30 days biotin 5 mg PO DAILY 30 days Breo Ellipta 200-25 mcg/dose (fluticasone furoate-vilanterol) 1 ea PO DAILY NS chlorhexidine gluconate 0.12% 15 mL buccal BID 14 days cholecalciferol (vitamin D3) 25 mcg PO DAILY 30 days [clonazepam ] codeine-guaifenesin 10-100 mg/5 mL 10 mL PO Q6H PRN 10 days codeine-guaifenesin 10-100 mg/5 mL 10 mL PO Q6H PRN 10 days cyclobenzaprine 10 mg PO TID PRN 10 days dextromethorphan-guaifenesin 10-100 mg/5 mL (Antitussive DM) 10 mL PO Q6H PRN 14 days epinephrine (EpiPen 2-Yohan) 0.3 mg (0.3 mL) IM Q10M PRN 30 days ferrous sulfate (Feosol) 325 mg PO DAILY 30 days fexofenadine ([place] Allergy) 180 mg PO DAILY 30 days furosemide (Lasix) 20 mg PO DAILY gabapentin 800 mg PO TID hydroxychloroquine 200 mg PO BID inhalational spacing device (Vortex Holding Chamber) As directed insulin glargine (Lantus Solostar U-100 Insulin) 32 units subcut QAM insulin lispro (Humalog U-100 Insulin) 1 sliding scale dose subcut USEASDIRECTD levalbuterol HCl 1.25 mg (3 mL) inhalation Q6H PRN lidocaine 5% (Lidoderm) 1 patch topical DAILY 30 days loratadine (Claritin) 10 mg PO DAILY 30 days melatonin 5 mg PO BEDTIME PRN montelukast (Singulair) 10 mg PO DAILY nebulizers As directed omeprazole 40 mg PO BID 30 days ondansetron HCl (Zofran) 4 mg PO Q8H PRN 10 days oxycodone 15 mg PO Q8H PRN [address] (Protonix) 40 mg PO DAILY 30 days pilocarpine HCl 5 mg PO TID PNV cmb#95-ferrous fumarate-FA 28 mg iron- 800 mcg 1 tab PO DAILY 30 days roflumilast (Daliresp) 500 mcg PO DAILY 30 days sodium chloride 3% 4 mL inhalation BID 30 days umeclidinium 62.5 mcg/actuation (Incruse Ellipta) 1 inh PO DAILY Xopenex HFA 45 mcg/actuation (levalbuterol tartrate) 2 puffs PO Q6H PRN 30 days NS zolpidem 10 mg PO BEDTIME PRN 30 days Office Procedures 6 Minute Walk Time:: 13:00 SPO2 % at rest: 99 Pulse at rest: 77 SPO2 % during excercise: 87 Pulse during excercise: 86 Distance in yards walked: 350 Beverly Score: 9 Performance Observations:: Patient ambulated on level ground without assistance, patient ambulated at brisk pace after 3 minutes O2 sat decreased to 87%, stopped O2 applied @ 2lpm pulsed, O2 increased to 96% 6 Minute Walk (with oxygen) Time:: 13:15 SPO2 % at rest:: 96 Pulse at rest:: 74 SPO2 % during exercise:: 95 Pulse during exercise:: 82 SPO2 % after exercise: 100 Pulse after exercise:: 70 Distance in yards walked:: 550 Beverly Score:: 8 Performance Observations: Pt ambulated on 2lpm pulsed O2 patient ambulated on level ground without assistance, no dyspena noted. REcommend O2 @ 2lpm pulsed [id number] - 6 Minute Walk Coding CPT Codes Coding ([id number])
[2025-06-16 13:22] VITALS: PULSE 74; PULSE 77; O2SAT 96; O2SAT 99
== END 2025-06-16 13:11 | disposition home or self-care (01) ==
LOC: HO.HPS 12:50
PROVIDERS: PCP Internal Medicine Geriatric Medicine; Visit Provider Hospitalist
DX: J45.51 Severe persistent asthma with (acute) exacerbation (principal)

== ENCOUNTER → 2025-06-16 12:50 | Outpatient (BNVA) | payer MEDICAID, SELFPAY | PROVIDERS: PCP Internal Medicine Geriatric Medicine; Visit Provider Hospitalist | DX: J45.51 Severe persistent asthma with (acute) exacerbation (principal) | CPT/HCPCS: 94618 ==

== ENCOUNTER 2025-07-21 10:25 | Outpatient (AMB) | payer MEDICAID, SELFPAY ==
[2025-07-21 10:30] VITALS: BP 146/96; PULSE 79; O2SAT 100; BMI 30.1
--- NOTE | 2025-07-21 10:30 | A.OFFVIS_ITS ---
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: No Allergies latex (LATEX) Allergy (Severe, Verified 07/21/25 10:40) RASH passion fruit (PASSION FRUIT) Allergy (Severe, Verified 07/21/25 10:40) ANAPHYLAXIS Penicillins (PCN) Allergy (Severe, Verified 07/21/25 10:40) ANAPHYLAXIS shellfish derived (SHELLFISH DERIVED) Allergy (Severe, Verified 07/21/25 10:40) MOUTH SWELLING, ITCHY acetaminophen (From TYLENOL) Allergy (Mild, Verified 07/21/25 10:40) UNKNOWN ibuprofen (IBUPROFEN) Allergy (Mild, Verified 07/21/25 10:40) HX ULCERS TOLD NOT TO TAKE iodine (IODINE) Allergy (Mild, Verified 07/21/25 10:40) ITCHY lisinopril Adverse Reaction (Severe, Verified 07/21/25 10:40) Rash metformin Adverse Reaction (Severe, Verified 07/21/25 10:40) Rash HPI Comments Details: The patient is a 55 y/o woman with a history of tracheobronchomalacia in addition to asthma. She is status post tracheoplasty in [place] complicated by right-sided pleural effusion and significant right-sided chest discomfort. 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 More recently she did have a CT scan of the chest that [facility] demonstrating a nondisplaced rib fracture. No evidence of any pulmonary emboli. Her chest pain is still moderate severity. Limiting her activity. She is scheduled to have a repeat CT scan of the chest and bronchoscopy in [facility]. She continues to use her respiratory inhalers for her asthma. We did give her further indication about which inhalers she should be using. She is status post bronchoscopy demonstrating patency of the trachea and a successful surgery. Her cough is significantly improved. She continues with respiratory therapy. 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 She did have a visit with the pain specialist. In the meantime the patient needs to be using her CPAP. She states that he needs to be adjusted. She will bring in the next time so we can adjusted the CPAP so she can use it as prescribed. She understands was so help her respiratory status and also decrease cardiovascular risks. 05/13/2023 the patient is here for a pulmonary follow-up visit. Overall the patient had been doing relatively well. She continues to have dyspnea on exertion. She also responds well to the oxygen specially if she is exercising. The patient recently went to [place] and completed a course of thermoplastic. Now she is doing well from an asthma standpoint. She is continues on the Xolair continues with allergy medicine. She did undergo pulmonary function studies today which we personally reviewed in the office. No evidence of any obstructive ventilatory defects. Although her total lung capacity still low at 73%. Indeed is better than before which was 69% and a diffusing capacity is a little better as well. Still this restrictive ventilatory defect does the affect her her symptoms. I do believe that she will benefit from pulmonary rehabilitation at this time and the patient is agreeable to this. In the meantime she is going to continue with current allergy therapy. She also is being monitored off for underlying pulmonary nodules. Her last CT scan was done at [facility] back in January 2023. No evidence of any residual rib fractures that she was wondering. Again pulmonary nodules that will need follow-up. During that visit she also has some stranding in the GI tract due to likely food poisoning. Also, still having daytime drowsiness. EPWORTH score 11/24. 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 Will order an in-lab PSG. Current the patient is doing well she will return to [place] sometime in November. Otherwise will continue to follow her every 4-6 months. 07/31/2023 the patient is here for pulmonary follow-up visit. The patient has been complaining of worsening asthma symptoms. She has been having increasing chest tightness and wheezing. This has been happening now for the last 3 days. She continues with Xolair injections in does have been helpful. Denies any sick contacts. She has been using her respiratory therapy. Her cough is been difficult because is been keeping her up at nighttime. Will go ahead and provide her with cough suppressant therapy. She is concerned because she has a trip planned in at this point with the asthma exacerbation the patient will go ahead and receive Solu-Medrol IM x1. She is going to continue respiratory therapy. If the patient is no better she will call the office for additional steroid therapy. The patient also continues to have significant daytime drowsiness. She did have a sleep study back in the summer demonstrating mild sleep apnea. Patient will try positional therapy. But, if the patient continues to be symptomatic with daytime drowsiness she would benefit from CPAP therapy. 11/28/2023 the patient is here for sick visit. Apparently the beginning of the year she was exposed to her grandson with the flu. Ultimately developed the flu she did call and she did take Tamiflu. Although her respiratory symptoms wors ened and she required prednisone and also antibiotics. She will call the office when he stopped the medications to the pharmacy. She continues to have significant asthma chest tightness and wheezing. She is wondering what she can do. She also has chest congestion and difficult to expectorate the phlegm. The patient does have significant wheezing will provide her with Solu-Medrol 125 mg IM x1. The patient also benefit from another course of antibiotics and prednisone. She does have a scheduled bronchoscopy next week for follow-up after thrombo plasty. But at this point I did recommend to the patient that if she continues to have active asthma she should postpone specially if there has no need for any interventions. 03/25/2024 the patient is here for a pulmonary follow-up visit. The patient recently had a upper respiratory illness resulting in an asthma exacerbation. The patient required antibiotics and prednisone. She now has completed the course. She still has hoarseness. She feels some chest congestion but overall better. The patient does not need any additional prednisone antibiotics. If her symptoms worsen she can always consider calling to be reassessed. In the meantime she is changing pharmacy so I sent her all her medicines with the new pharmacy. She also has been using the CPAP at nighttime. The CPAP therapy continues to be affecting beneficial. She does try to use it more than 4 hours a night. She has not been getting supplies. I did send a script to [facility] in order for her to get supplies. I explained to the patient that she needs to make sure she has adequate usage from the CPAP in order to be active with them. In the meantime I did provide her with an N30 eyes small mask that seemed to fit better than the P 10 nasal pillows that was irritating her nares. I will request that new mask to the [facility]. The patient also be following up in [place] soon. She is scheduled to have a PFT a CT scan and possibly a bronchoscopy to have an evaluation post thermoplastic. The patient will request her imaging studies in order for us to be able to review them over here. She was a;so evaluated by allergy and had allergy testing. She continues on the Xolair. Otherwise patient is without other complaints. She will follow-up in 3- 4 months. If any new issues arise she will call for an earlier assessment. 06/14/2024 the patient is here for a sick visit. Apparently patient was in his usual state health until this weekend started developing some difficulty with her breathing. [place] like her throat was closing up. [place] some difficulty swallowing. Although no sore throat. She continue using her respiratory therapy. As far as exposures she had been out during the day and pureed. There was positive sick contacts although she does not have any Viral syndrome symptoms. She also states that recently her Xolair was increased and she is not sure if that has anything to do with it. She does have an EpiPen although is not up today and is actually . I will send her new EpiPen to the pharmacy. She knows when to use it and how to use it. The patient does have some swelling on the throat area. I do not see any evidence of any angioedema or any edema of the uvula. I also do not appreciate any stridor at this time. Will go ahead and treat her with some prednisone to decrease the inflammatory changes and also will treat her for the possibility of bacterial pharyngitis. The patient be following up with her respiratory scientist in a couple weeks at which point she can continue to be evaluated as far as symptoms. But at this point she has been on Xolair for a long period of time and she has done well on it and I do not believe that the increasing the medication has any evidence of any adverse effects at this time. 07/26/2024 the patient is here for a pulmonary follow-up visit. She still struggling with her breathing. The patient is been concerned about the Xolair. She feels that she is having reactions to it. We last spoke she had to use an EpiPen twice. The patient also has been having some issue with hoarseness and raspiness of her voice. She has also had chest congestion chest tightness. The patient has required her nebulizer several times a day. She has also continue with respiratory therapy. We did do additional blood work. It looks like her IgE level continues to be elevated. Eosinophil levels okay. Although at this point because of adverse symptoms it would be reasonable to switch her biologic to a different agent. I do believe test part be a good option for her. Dupixent will be a good option to however, her eosinophils are within normal limits. She is also concerned about her tracheobronchomalacia. She feels like it is coming back. She is supposed to be seen by [place] soon. She continues use her CPAP every night. CPAP therapy has been affecting beneficial. She needs use more than 4 hours a night. Therefore will continue with the current respiratory therapy and allergy therapy. The patient has required prednisone multiple times as it is already. She has diabetes. We need to minimize her prednisone use. The patient does have chronic bronchitis so therefore the use of Daliresp at this time will be helpful. 09/30/2024 the patient is here for pulmonary follow-up visit. Overall she is doing fairly well. She is tolerating the test prior. Has not had any reactions like she was having before. Still has raspiness of the voice. Indeed he may be the inhalers. Although they seem to be working well for her. She does have a barium swallow scheduled soon to see if she has any potential reflux that may be contributing to her hoarseness. In the meantime the patient will be followed up at for her yearly follow-up CT scan and likely bronchoscopy. 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 She has regained some back. She is still dealing with that with the celebrity chef entrepreneur media personality. The patient will return in 3 4 months. If she has any issues prior to that she will call for an earlier assessment. She is also using his CPAP every night. CPAP therapy has been affecting beneficial she does use it for more than 4 hours a night. She is using a nasal pillow. Although it is irritating her nostrils. Will go ahead and see if we can get her nasal mask instead. She can also try cradle. 01/06/2025 she is here for pulmonary follow-up visit. Overall she is doing fairly well. She did follow-up in [place] and did have a CT scan of the chest and also bronchoscopy. They found that she had a component of tracheomalacia but minimal. And she did have an intervention. They also found that she has some atelectasis to the right base. And felt that this part is affecting her gas exchange. She continues use oxygen. She does have the concentrator at home and has a portable tanks that she gets to [facility]. Although it has been difficult for her to carry because of the difficulty carrying tanks. Therefore will request a portable oxygen concentrator 2 L pulse she can using the meant jannet. The patient also continues to use her CPAP. The CPAP therapy continues to be affecting beneficial. She does use it for more than 4 hours a night. In addition to that she is on her allergy medication and also her asthma medications she continues to be on test by every month with good results. Right now she is consider having plastic surgery for her abdomen. She needed a preop clearance letter which I provided her otherwise the patient is doing well will follow-up in 2-3 months. 03/01/2025 the patient is here for pulmonary follow-up visit. She has been noticing increasing chest congestion specially after having a bronchoscopy in [place]. She also been a little more hoarse. She feels it is mainly in the middle the chest. She is bringing up some phlegm yellowish in color. Moderate severity. Denies any fevers or chills. After the bronchoscopy she did have some fevers but less typical. She did have significant secretions. She also had a chest x-ray with evidence of atelectasis or opacity in the right lower lobe. She will be following up in [place] soon. Otherwise will repeat the x-ray here to make sure that things are opening up. We could be mucus plugging. Therefore will start her back on azithromycin 3 times a week and also she should be on Daliresp. It was prescribed but she had not been taking it. Explained to her would help with chronic bronchitis and does which she has and it would be helpful for her to do it. The patient also has been using her oxygen. Oxygen therapy has been affecting beneficial. She has had shoulder surgery and now recently elbow surgery and difficult time caring any oxygen tanks. She will benefit from a portable oxygen concentrator that will provide better portability outside of the home. She uses a 2 L pulse with activity. It is likely because of the atelectasis in the opacity in the right base that her gas exchange is impaired and that is what she needs the oxygen. Therefore, she will return in after 6 months of therapy will repeat an x-ray. She also has an appointment to go back to [place]. In the meantime she has been using the CPAP. CPAP therapy has been affecting beneficial. She does use it for more than 4 hours a night. 05/26/2025 the patient is here for a pulmonary follow-up visit. She has had a very eventful few months. She did underwent a abdominal surgery and the surgery was complicated by poor healing and subsequently necrotic tissue. She did required debridement and now has a wound VAC. she has been followed closely by Wound Care. Respiratory garcia the patient has been doing okay although does have a chronic cough. Will try to minimize cough specialists she is trying to heal from the wound. In the meantime she does have her oxygen that she uses with activity. She is requesting a POC. Will have her come in for 6 minute walk test at some point whenever she feels better in order to see if she qualifies for 1. She will continue her current respiratory therapy. Will follow-up in 2- 3 months. 07/21/2025 the patient is here for pulmonary follow-up visit. Recently she was hospitalized at [facility] because of her wound in her abdomen after her surgery. Now appears to be healing well and her wound VAC has been removed. And she is being monitor closely. Seems to be doing better. Part, she has been having difficulty with her breathing and her asthma has been more active. Will holding off on prednisone because from pulmonary to heal and she understands the prednisone can affect her healing process. She has had more coughing addition to chest tightness and congestion. The patient has not been using her nebulizer. She does have wheezing on exam and I did provide her with Xopenex and she did very well and her respiratory symptoms did improve in her cough settled some. Therefore, the patient understands that she needs to start using her nebulizer at least twice a day and will provide her with Xopenex in addition to budesonide to allow her to have improvement in respiratory symptoms without the use of prednisone. If she has getting worse and she has no other option then using prednisone then she can start prednisone then. The patient also has been having issues with her swallowing. She does have a problem with a small hiatal hernia also stricture of the GE junction and also achalasia and dysmotility disorder. She has been followed closely with GI and she will be seeing GI at [facility] soon. She understands that this GI issue can ultimately resulting worsening asthma symptoms chest congestion and cough. [facility] Medical History (Updated 07/21/25 @ 21:37 by Hood Edgar MD) Esophageal dysmotility Esophageal stenosis Hiatal hernia Atelectasis Laryngitis Dysphagia Rib fracture Rib fracture Cough Chronic restrictive lung disease [id number] syndrome CJ (obstructive sleep apnea) CJ on CPAP Diabetes Sjogrens syndrome Lesion of bronchus Pneumonia Asthma Tracheobronchomalacia COVID-19 Surgical History (System 02/10/25 @ 16:16 by Deidra Melendez) History of carpal tunnel surgery of left wrist History of bronchoscopy History of endometrial ablation Hx of tubal ligation Family History Mother Asthma Father Diabetes Social History Household Members: Spouse and Children Alcohol intake: never Patient Tobacco Use Status: Former Tobacco user Tobacco use type: Cigarette Years Smoked: 2-3 yrs Second Hand Smoke Exposure: No Review of Systems Const Denies chills, Denies fatigue, Denies fever(s), Denies weight gain and Denies weight loss Eyes Reports as per HPI and Reports change in vision ENT Reports dysphagia, Denies dizziness and Denies lip swelling Card Denies chest pain, Denies leg edema, Denies lightheadedness, Denies palpitations, Denies dyspnea on exertion, Denies orthopnea and Denies other Resp Reports change in phlegm color, Reports chest congestion, Reports cough, Denies dyspnea on exertion and Reports wheezing GI Denies hematochezia, Denies change in stool character and Reports dysphagia Musc Denies abnormal gait, Denies muscle weakness, Denies numbness, Denies radiating pain into limb and Denies tingling Skin/Breast Denies rash Neuro Denies abnormal gait, Denies dizziness, Denies numbness and Denies tingling Psych Denies no additional complaints Endo Denies fatigue and Denies palpitations Anatoliy/Lymph Denies easy bleeding and Denies lymphadenopathy Aller/Immun Denies lip swelling and Reports wheezing Physical Exam Vital Signs: Last Vital Signs Pulse 79 07/21/25 10:30 BP 146/96 H 07/21/25 10:30 Pulse Ox 100 07/21/25 10:30 Oxygen Delivery Method Room Air 07/21/25 10:30 BMI result Body Mass Index 30.1 Const General: alert; No in distress HEENT Head: Yes normocephalic Throat: Yes posterior oropharynx abnormal ( erythematous), Yes postnasal drainage and No uvular edema Neck Neck: Yes normal visual inspection, Yes full ROM, Yes no lymphadenopathy and Yes lymphadenopathy Chest Chest palpation & inspection: normal inspection of the chest Resp Effort & Inspection: normal respiratory effort, Actively coughing and prolonged expiratory phase Auscultation: wheezes and diminished lung sounds Cardio Rate: regular rate Rhythm: regular rhythm Heart sounds: S1 normal heart sound present and S2 normal heart sound present GI Inspection: Yes other (wound vac) Palpation (GI): Soft to palpation Auscultation: normal bowel sounds Skin General skin exam: rashes and/or lesions noted Extrem General: No cyanosis and Yes edema Assessment & Plan Assessment & Plan (1) Asthma: Comment: s/p thermoplasty Code(s): J45.909 - Unspecified asthma, uncomplicated Category: Medical Qualifiers: Asthma severity: severe Asthma persistence: persistent Asthma complication type: with acute exacerbation Qualified Code(s): J45.51 - Severe persistent asthma with (acute) exacerbation (2) Chronic restrictive lung disease: Code(s): J98.4 - Other disorders of lung Category: Medical (3) CJ (obstructive sleep apnea): Code(s): G47.33 - Obstructive sleep apnea (adult) (pediatric) Category: Medical (4) Sjogrens syndrome: Comment: ++SSa dx around 2016 HCQ 2017 Code(s): M35.00 - Sjogren syndrome, unspecified Category: Medical Qualifiers: Sjogren's organ involvement: keratoconjunctivitis Qualified Code(s): M35.01 - Sicca syndrome with keratoconjunctivitis (5) Tracheobronchomalacia: Comment: 2019: treated with tracheoplasty in [place] Code(s): J39.8 - Other specified diseases of upper respiratory tract Category: Medical (6) Atelectasis: Code(s): J98.11 - Atelectasis Category: Medical (7) Hiatal hernia: Code(s): K44.9 - Diaphragmatic hernia without obstruction or gangrene Category: Medical (8) Esophageal stenosis: Code(s): K22.2 - Esophageal obstruction Category: Medical (9) Esophageal dysmotility: Code(s): K22.4 - Dyskinesia of esophagus Category: Medical Plan Nebulizer in the office continue Tezspire Continue Breo, incruse start BUdesonide nebs BID Prednisone only if worsens Continue APAP, trial Nasal mask increase [place] to BID x 1 month Xopenex - The patient cannot tolerate albuterol due to significant adverse effects with tachycardia at tremulousness and agitation PPI reflux diet F/U at [facility] continue oxygen: requesting POC 2L/pulse for better portability outside of the home. Difficult time with oxygen tanks with her orthopedic surgeries. start Azithromycin MWF Needs to F/U with GI F/U 3 months Orders: Orders AMB Nebulizer Treatment Today J45.51 - Severe persistent asthma with (acute) exacerbation Medications: New budesonide 0.5 mg (2 mL) inhalation BID 120 mL 11RF 30 days J44.9 - Chronic obstructive pulmonary disease, unspecified levalbuterol HCl 1.25 mg (3 mL) inhalation BID 180 mL 6RF 30 days J44.9 - Chronic obstructive pulmonary disease, unspecified methylprednisolone (Medrol (Yohan)) PO PER PKG DIR 21 ea 0RF 6 days fexofenadine ([place] Allergy) 180 mg PO BID 60 tabs 0RF 30 days levalbuterol HCl 1.25 mg (3 mL) inhalation ONCE 6 mL 0RF J45.51 - Severe persi stent asthma with (acute) exacerbation Changed From azithromycin 500 mg PO DAILY 5 days 5 tabs 0RF To azithromycin Friday, Friday, Friday 500 mg PO 3XW 12 tabs 1RF 28 days Refilled omeprazole 40 mg PO BID 60 caps 3RF 30 days Coding Level of Care Code Est Pt Level 5 (02372) Complex EM visit Add On G2211 Diagnoses Severe persistent asthma with acute exacerbation J45.51 Asthma severity: severe Asthma persistence: persistent Asthma complication type: with acute exacerbation Chronic restrictive lung disease J98.4 CJ (obstructive sleep apnea) G47.33 Sjogren's syndrome with keratoconjunctivitis sicca M35.01 Sjogren's organ involvement: keratoconjunctivitis Tracheobronchomalacia J39.8 Atelectasis J98.11 Hiatal hernia K44.9 Esophageal stenosis K22.2 Esophageal dysmotility K22.4 Time Spent (min) 40
--- OUTSIDE RECORDS SUMMARY | 2025-07-21 11:45 | XMS_ITS | Encounter Summary ---
Author Organization [employer] Address [address] [place] [address] [address] [place] [address] Care Team Providers Care Frame Repairer Name Role Phone Name, Charbel CARRILLO Primary Care Provider [phone] Мария Gudino PharmD Unavailable [phone] Robin Muniz RN Unavailable [phone] Leann Edgar Unavailable Reason for Visit * Reason Onset Date Comments Referral 03/24/2023 Encounter Details Date Type Department Care Team (Late st Contact Info) Description 03/24/[address] [facility] [address] [place] [address] Name, MD Charbel [address] [place], [place] [id number] Referral Social History Tobacco Use Types Packs/Day [...] updated referral to be seen at the [facility] stated needs it before her appt on april 082022 Please contact pt at [phone] documented in this encounter Plan of Treatment Upcoming Encounters Date Type Department Care Team (Late st Contact Info) Description 09/02/2025 11:00 AM EDT Telemedicine [facility] [address] [place] [id number] Roz Le, ARLINE documented as of this encounter Visit Diagnoses Not on filedocumented in this encounter Additional Health Concerns Assessment Noted Time PHQ-9 Depression Total Score: 0 10/23/20 22 3:25 PM EST documented as of this encounter Care Teams Frame Repairer Relationship Specialty Start Date End Date Name, MD Charbel [address] [place] [id number] PCP - General Family Medicine 02/26/16 Мария Gudino PharmD [address] [place] [phone] Pharmacist Internal Medicine 04/29/23 07/11/25 Robin Muniz, ARLINE [address] [place] [id number] Registered Nurse Family Medicine 04/22/25 Leann Edgar [facility] documented as of this encounter
--- OUTSIDE RECORDS SUMMARY | 2025-07-21 11:45 | XMS_ITS | Clinical Summary ---
Author Organization [employer] Address [address] [place] [address] 7 [place] [address] Care Team Providers Care Compliance And Control Analyst Name Role Phone Name, Charbel CARRILLO Primary Care Provider [phone] Robin Muniz RN Unavailable [phone] Leann Edgar Unavailable Allergies Active Allergy Reactions Criticality Noted Date [...] 02/24/2015 Other reaction(s): Hives / Skin Rash,SOB [place] Flavoring Agent (Non-Screening) Wheezing 05/30/2009 Hives/rash/sob Other [...] exceed 200mg in 24 hours Active Umeclidinium [place] (Incruse Ellipta) 62.5 MCG/ACT aerosol powder Inhale [...] if needed for shortness of breath. Active zolpidem (Ambien) 10 MG tablet Take 1 tablet by mouth if needed at bedtime. Active insulin pen needle (BD Pen Needle Yajaira U/F) 32G x 4 mm misc Inject under the skin in the morning, at noon, and at bedtime. Use as instructed Active Breo Ellipta 200-25 MCG/ACT aerosol powder INHALE 1 PUFF BY MOUTH DAILY Active Roflumilast 500 MCG tablet Take 1 tablet by mouth 1 (one) time each day. Active OXcarbazepine (Trileptal) 150 MG tablet Take 150 mg by mouth in the morning. 023 Active Blood Pressure kit Use daily 1 kit Active insulin glargine (Lantus SoloStar) 100 UNIT/ML pen Inject 32 Units under the skin Once daily. Active hydroxychloroquin e (Plaquenil) 200 MG tablet Take 1 tablet by mouth 2 times daily. Active pilocarpine (Salagen) 5 MG tablet Take 5 mg by mouth 3 times daily. Active Alcohol Swabs (B-D SINGLE USE SWABS REGULAR) pads USE NEEDED 6 TIMES A DAY 200 each 5 023 Active biotin 5000 MCG tablet Take 1 tablet by mouth in the morning. 023 Active melatonin 5 MG tablet Take 1 tablet (5 mg) by mouth at bedtime. 90 tablet 1 Active FREESTYLE LITE test strip 1 each by Other route 3 times daily. Use to test blood sugar three times daily as directed Active OXcarbazepine (Trileptal) 300 MG tablet Take [...] hyperglycemia, with long-term current use of insulin ([facility]) Take 1 tablet (81 mg) by mouth Once per day. 90 tablet 3 Active Xolair 75 MG/0.5ML injection Active celecoxib [...] 2 times daily. 180 tablet 1 Active Blood Glucose Monitoring Suppl (FreeStyle [place] Lite) w/Device kit Use to test blood sugar 3 times daily 1 kit Active FreeStyle lancets USE ONE LANCET THREE TIMES DAILY 100 each 11 Active loratadine (Claritin) 10 MG tablet Take 1 tablet by mouth Once per day. Active sucralfate (Carafate) 1 g tabletIndications :Vomiting and diarrhea TAKE 1 TABLET BY MOUTH BEFORE BREAKFAST, LUNCH, EVENING MEAL, AND AT BEDTIME X 14 DAYS 56 tablet Active fluocinolone (Synalar) 0.01 % external solution APPLY TOPICALLY TO THE AFFECTED AREA TWICE DAILY 60 mL 1 Active azelastine (Optivar) 0.05 % ophthalmic solution INSTILL 1 DROP IN BOTH EYES TWICE DAILY 6 mL 2 Active loperamide (Imodium) 2 MG capsuleIndication s:Vomiting and diarrhea TAKE 1 TO 2 CAPSULES BY MOUTH IF NEEDED IN THE MORNING, AT NOON, EVENING, AND AT BEDTIME FRO DIARRHEA FOR UP TO 10 DAYS 30 capsule Active ondansetron (Zofran) 4 MG tabletIndications :Vomiting and diarrhea TAKE 1 TABLET(4 MG) BY MOUTH EVERY 8 HOURS FOR UP TO 13 DAYS NEEDED FOR NAUSEA OR VOMITING 20 tablet 1 Active baclofen (Lioresal) 10 MG tabletIndications :Acute pain of right shoulder TAKE 1 TABLET BY MOUTH EVERY DAY FOR UP TO 20 DAYS NEEDED FOR MUSCLE SPASMS 60 tablet Active Diclofenac Sodium 1 % gel APPLY 2 GRAMS TOPICALLY TO THE AFFECTED AREA TWICE DAILY 100 g 1 Active fluticasone (Flonase) 50 MCG/ACT nasal spray 2 SPRAYS IN EACH NOSTRIL ONCE A DAY 48 g Active pantoprazole (ProtoNix) 40 MG EC tablet TAKE 1 TABLET(40 MG) BY MOUTH BEFORE BREAKFAST. DO NOT CRUSH, CHEW, OR SPLIT 90 tablet Active atorvastatin (Lipitor) 40 MG tabletIndications :Type 2 diabetes mellitus with hyperglycemia, with long-term current use of insulin ([facility]),Hyperli pidemia, unspecified hyperlipidemia type TAKE 1 TABLET(40 MG) BY MOUTH DAILY 90 tablet 3 Active gabapentin (Neurontin) 800 MG tablet Take 1 tablet (800 mg) by mouth 2 times daily. 60 tablet 11 025 2025 Active bisacodyl (Dulcolax) 5 MG EC tablet Take 1 tablet (5 mg) by mouth if needed in the morning, at noon, and at bedtime for constipation. Do not crush, chew, or split. 90 tablet 3 025 2025 Active ARIPiprazole (Abilify) 2 MG tablet Take 1 tablet by mouth Once per day. Active Insulin Lispro 100 UNIT/ML solution USE PER SLIDING SCALE. INJECT 6 TO 18 UNITS UNDER THE SKIN THREE TIMES DAILY BEFORE MEALS. MAX DAILY DOSE OF 54 UNITS Active Ozempic, 2 MG/DOSE, 8 MG/3ML solution pen-injector Inject 2 mg under the skin every 7 (seven) days. Active carvedilol (Coreg) 25 MG tablet TAKE 1 TABLET BY MOUTH WITH BREAKFAST AND EVENING MEAL 180 tablet 2 Active sennosides (Senokot) 8.6 MG tablet Take 17.2 mg by mouth if needed each day for constipation. Active silver sulfADIAZINE (Silvadene) 1 % cream Apply topically Once per day. Active fluconazole (Diflucan) 150 MG tablet Take 1 tablet (150 mg) by mouth 1 (one) time per week. 2 tablet Active nystatin-triamcin olone (Mycolog II) ointmentIndicatio ns:Hyperglycemia APPLY TOPICALLY TO THE AFFECTED AREA TWICE DAILY 15 g 1 Active mometasone (Elocon) 0.1 % ointment APPLY TOPICALLY TO THE AFFECTED AREA IN THE MORNING 15 g Active minoxidil (Loniten) 2.5 MG tablet Take 1 tablet (2.5 mg) by mouth Once per day. 30 tablet 11 025 2025 Active oxyCODONE (Roxicodone) 10 MG immediate release tabletIndications :Chronic pain syndrome Take 1 tablet (10 mg) by mouth every 6 (six) hours if needed for severe pain for up to 28 days. Do not start before July 21, 2025. 112 tablet 025 2024 Active oxyCODONE (Roxicodone) 10 MG immediate release tabletIndications :Chronic pain syndrome Take 1 tablet (10 mg) by mouth every 6 (six) hours if needed for severe pain for up to 28 days. 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 Asthma 10/01/2024 Long-term current use of opiate analgesic 2023 Overview (07/27/2024): Medication: oxycodone 10mg Q6H PRN Indication: cervical spondylosis, fibromyalgia, chronic right knee pain Last [employer] Agreement: 10/23/23 Additional considerations/risk factors: multiple sedating [...] Used to be seen for PM at [facility], got injections, not better, ref to [...] on 09 January 2016 14:38 Encounter info: [id number], [facility], [facility], 01/08/2016 - 01/15/2016 * Final Report * Reason For Exam rt shoulder pain RCT;rt shoulder pain RCT RESULT: MRI Joint Ext Upper W/O Contrast Right [facility] VISIT NUMBER :[id number] Patient Name : Sade Izaguirre Date of : 1970 Date of Exam : 01/08/2016 Referring Physician : GINA CROFT [address], Attn: [place] [address] Exam : MR - SHOULDER (C-) CPT 96467 - RIGHT Room Description : [facility] 2 1.5 Technique : Ax PD [...] Used to be seen for PM at [facility], got injections, not better, ref to [...] on 09 January 2016 14:38 Encounter info: [id number], [place] [facility] 01/08/2016 - 01/15/2016 * Final Report * Reason For Exam rt shoulder pain RCT;rt shoulder pain RCT RESULT: MRI Joint Ext Upper W/O Contrast Right [facility] VISIT NUMBER :[id number] Patient Name : Sade Izaguirre Date of : 1970 Date of Exam : 01/08/2016 Referring Physician : GINA CROFT [address], Attn: [place] [address] Exam : MR - SHOULDER (C-) CPT 53856 - RIGHT Room Description : [facility] 2 1.5 Technique : Ax PD [...] knee 02/05/2023 Overview (02/05/2023): Severe, follows at [facility] Was told too young for TKR Urinary [...] Encounters Date Type Department Care Team Description 07/20/2025 Telephone [facility] [address] [place] [phone] Charbel Lyons MD Durable Medical Equipment 07/20/2025 Telephone [facility] [address] [place] [phone] Charbel Lyons MD Med Refill 07/20/2025 Refill [facility] [address] [place] [phone] Charbel Lyons MD Chronic pain syndrome 07/12/[address] [address] Мария Gudino, PharmD 07/11/2025 Orders Only [facility] [address] [place] [phone] ProviderFantasma MD 07/11/2025 Patient Outreach [facility] [address] [place] [phone] Charbel Lyons MD 07/08/[address] [address] Charbel Lyons MD No Show (Pt no show to follow up with Name 07/08/2025. No show letter mailed.) 07/08/2025 Patient Outreach [facility] [address] [place] [phone] Charbel Lyons MD Pre-visit Planning (HDF unscheduled) 07/07/2025 Patient Outreach [address] [address] Charbel Lyons MD 07/07/2025 Telephone [facility] [address] [place] [phone] Nick Magdaleno MA chart prep 07/05/2025 Patient Outreach [facility] [address] [place] [phone] Charbel Lyons MD 07/01/2025 Travel 06/28/2025 Telephone [facility] [address] [place] [phone] Charbel Lyons MD Durable Medical Equipment 06/21/2025 Refill [facility] [address] [place] [phone] Charbel Lyons MD Chronic pain syndrome 06/21/[address] [address] Charbel Lyons MD Med Refill 06/08/[address] [address] Trinity Garcia MD 06/08/2025 Refill [facility] [address] [place] [address] Charbel Lyons MD Hyperglycemia 06/03/[address] [address] Charbel Lyons MD Durable Medical Equipment 05/30/2025 1:00 PM EDT Telemedicine [address] [address] Roz Le, ARLINE Long-term current use of opiate analgesic 05/30/[address] [address] Roz Le, ARLINE Oxycodone use; BPI Scoring 05/30/2025 Travel 05/23/[address] [address] Charbel Lyons MD Durable Medical Equipment 05/16/[address] [address] Charbel Lyons MD Durable Medical Equipment 05/11/[address] [address] Roz Le, grind operator pain syndrome 05/10/2025 3:45 PM EDT Office Visit [address] [address] Charbel Lyons MD Wound dehiscence (Primary Dx); Type 2 diabetes mellitus with chronic kidney disease, with long-term current use of insulin, unspecified CKD stage ([facility]); Vulvar itching; Exacerbation of chronic back pain 05/10/2025 Travel 05/09/[address] [address] Nick Magdaleno MA chart prep 05/09/2025 Patient Outreach [address] [place] [address] Charbel Lyons MD Care Management (C3CM- initial assessment/ enrollment. Not available. ) 05/06/2025 2:00 PM EDT Office Visit [facility] [place] [address] Angela Silveira, CAST ASSOCIATE Surgical wound infection (Primary Dx) 05/06/2025 Travel 05/06/2025 Patient Outreach [address] [phone] Charbel Lyons MD Care Coordination (CM/CHW outreach) 05/03/[address] [address] Charbel Lyons MD 05/02/2025 Patient Outreach [address] [address] Leann Edgar 04/29/[address] [address] Charble Lyons MD Medication reconciliation 04/29/2025 Patient Outreach [address] [address] Charbel Lyons MD Care Coordination (CM/CHW outreach) 04/28/2025 Patient Outreach [address] [address] Charbel Lyons MD 04/28/2025 Patient Outreach [address] [address] Charbel Lyons MD Transition Of Care (Tcm) (HDF scheduled) 04/27/2025 Patient Outreach [address] [address] Charbel Lyons MD 04/26/2025 Patient Outreach [address] [address] Charbel Lyons MD Care Coordination (CM/CHW outreach) 04/22/2025 Patient Outreach [address] [address] Charbel Lyons MD Care Coordination (CM/CHW outreach) 04/22/2025 Patient Outreach [address] [place] [address] Charbel Lyons MD Care Coordination (CHW chart review) 04/22/2025 Patient Outreach [facility] [place] [address] NameCharbel MD Care Management ([facility]- chart review) 04/22/2025 Patient Outreach [facility] [place] [address] NameCharbel MD 04/21/2025 [address] [place] [address] NameCharbel MD Chronic pain syndrome 04/20/2025 Telephone [facility] [place] [address] NameCharbel MD Clarance letter from Last 3 Months Immunizations Immunization Administration Dates Next Due HepB-CpG 07/07/2023,04/01/2023 Influenza injectable quadriv alent IIV4 with preservative 08/18/2018,09/24/2017,08/09/2016 Influenza injectable quadriv alent preservative free 08/27/2023,08/06/2022,10/23/2021,08/19,08/17/2019,10/09/2014,12/05/2009 ,08/08/2008,09/30/2006 Influenza, IIV3, injectable 10/23/2021,1 ,08/17/2019,08/18,09/24/2017,08/09/2016,10/09/2014 ,12/05/2009,08/08/2008,09/30/2006 Influenza, Unspecified 10/23/2021,2019,08/17/2019,08/18,09/24/2017,08/09/2016 Influenza, seasonal, injecta ble, preservative free 08/17/2024 Moderna Covid-19 Vaccine 12+ 08/26/2022, 03/14/2022,11/13/2021,02/22,01/25/2021 Moderna Covid-19 Vaccine 6+ Bivalent 08/26/2022 Novel [id number], preservative-free 12/05/2009 PPD Test 12/10/2006 Pfizer Covid-19 [...] is your housing situation today? I have samim lopez 09/01/[address] you [...] Answer Date Recorded Internet Access Q1 Yes 05/16/2025 Internet Access Q2 Not on file 05/16/2025 Comments Unknown Sex and Gender Information Value Date Recorded Sex Assigned at Female 09/16/2022 10:29 AM EDT Legal Sex Female 10:29 AM EDT Gender Identity Female 03/30/2024 4:35 PM EDT Sexual Orientation Choose not to disclose 2021 10:29 AM EDT Last Filed Vital Signs Vital Sign Reading Time Taken Comments Blood Pressure 130/90 05/10/2025 3:47 PM EDT Pulse 86 05/10/2025 3:47 PM EDT Temperature 36.9 C (98.5 F) 05/10/2025 3:47 PM EDT Respiratory Rate 20 05/10/2025 3:47 PM EDT Oxygen Saturation 99% 05/10/2025 3:47 PM EDT Inhaled Oxygen Concentration - - Weight 82.5 kg (181 lb 12.8 oz) 05/10/2025 3:47 PM EDT Height 165.1 cm (5' 5 ) 05/10/2025 3:47 PM EDT Body Mass Index 30.25 05/10/2025 3:47 PM EDT Plan of Treatment Upcoming Encounters Date Type Department Care Team (Late st Contact Info) Description 09/02/2025 11:00 AM EDT Telemedicine [facility] [address] [place] [phone] Roz Le, RN Health Maintenance Due Date Last Done Comments CT Colonography 1970 FIT DNA/Cologuard 1970 FIT 1970 FOBT 1970 Sigmoidoscopy 1970 Diabetes: Foot Exam 1979 Pap Smear 1990 Cervical Cancer Screening 1999 HPV/Cotest 1999 Eye Exam 03/11/2025 03/11/2024 Depression Screening 03/22/2025 03/22/2024, 03/22/20 Lipid Panel 05/17/2025 05/17/2024, 04/2 06/2022, 06/26/2021 Mammogram 06/17/2025 06/17/2024 COVID-19 Vaccine ( season) 2025 09/24/2023, 08/26/2022, 08/26/2022, Additional history exists Influenza Vaccine (#1) 2025 4, 08/27/2023, 08/06/2022, Additional history exists SDOH Screening 09/16/2025 09/16/2024 Diabetes: Hemoglobin A1C 09/18/2025 025, 02/03/2025, 08/17/2024, Additional history exists Alcohol/Substance Use Screening 03/18/2026 03/18/2025 Tobacco Screening 05/10/2026 05/10/2025 Disability Screening 07/01/2026 07/01/2025 DTaP/Tdap/Td Vaccines (2 - Td or Tdap) 11/03/2027 11/03/2017, 09/30/2006, 09/30/2006, Additional history exists Colonoscopy 12/15/2029 12/15/2019 Colorectal Cancer Screening 12/15/2029 RSV Patients and Patients Aged 60 years or older (1 - 1-dose 75+ series) 02/18/2044 Pneumococcal Vaccine: 50+ Years Completed 04/01/2023, 05/30/2009 Hepatitis B Vaccines Completed 07/07/2023, 04/01/20 Zoster Vaccines Completed 07/07/2023, 04/01/2023 Hepatitis C Screening Completed 07/20/2024 HIV Screening Completed 03/18/2025 HIB Vaccines Aged Out No longer eligi [...] PharmD Blood Pressure < 140/90 Blood Pressure 130/90(2024 3:47 PM EDT) No Мария Gudino PharmD Patient will adhere to medication regimen General No Мария Gudino PharmD LDL Calc < 70 Result Component No Мария Gudino PharmD Note: Per ADA for primary prevention of ASCVD Procedures Procedure Name Priority Date/Time Associated Diagnosis Comments CT ABDOMEN PELVIS WO CONTRAST Routine 07/10/2025 10:04 AM EDT POCT GLUCOSE Routine 05/10/2025 3:49 PM EDT Type 2 diabetes mellitus with chronic kidney disease, with long-term current use of insulin, unspecified CKD stage (CMS/HCC) HIV 1/2 ANTIGEN/ANTIBODY, FOURTH GENERATION W/RFL Routine 03/18/2025 3:42 PM EDT Preop examination HEMOGLOBIN A1C Routine 03/18/2025 3:42 PM EDT Preop examination HEPATITIS PANEL, GENERAL Routine 07/20/2024 8:40 AM EDT MAMMOGRAPHY Routine 06/17/2024 LIPID PANEL, STANDARD Routine 05/17/2024 10:55 AM EDT DIABETES EYE EXAM Routine 03/11/2024 COLONOSCOPY Routine 12/15/2019 from Last 3 Months or Most Recently Relevant to Health Maintenance Results * CT Abdomen Pelvis w/o Contrast (07/10/2025 10:04 AM EDT) Anatomical Region Laterality Modality Body, Pelvis, Abdomen Computed T omography us Historical Provider MD RAMOS CT PROCEDURES Final R esult * POCT Glucose (05/10/2025 3:49 PM EDT) Glucose Blood, POC 198 60 - 200 mg/dL QC Media Lot # [id number] Lot# Expiration Date Blood Capillary blood specimen / Unknown 05/10/2025 3:49 PM EDT Charbel Lyons MD POINT OF CARE TEST ENTER/EDIT OR DERABLES Final Result * HIV-1/2 Antigen and Antibodies, Fourth Generation, with Reflexes (03/18/2025 3:42 PM EDT) HIV AB/AG Nonreactive Nonreactive [facility] Comment:HIV-1 p24 Ag and/or HIV-1/HIV-2 Ab not detected.A test result that is nonreactive does not exclude thepossibility of exposure to or infection with HIV-1 and/orHIV-2. Nonreactive results in this assay for individualswith prior exposure to HIV-1 and/or HIV-2 may be due toantigen and antibody levels that are below the limit ofdetection of this assay.The [employer] HIV Ag/Ab Combo assay result andsupplemental assay results should be interpreted inconjunction with the patient's clinical presentation,history and other laboratory results. If the results areinconsistent with clinical evidence, additional testing issuggested to confirm the result. Blood Venous blood specimen / Unknown 03/18/2025 3:42 PM EDT 03/18/2025 5:43 PM EDT Angela Silveira CAST ASSOCIATE LAB BLOOD ORDERABLES Final Res ult [facility] [place] [address] [phone] * Hemoglobin A1c (03/18/2025 3:42 PM EDT) Hemoglobin A1c 5.9 <6.0 % [facility] Comment:Hemoglobin A1C Refer ence Range Adults: 4.8 - 6.0 % Non diabetic: < 6.0 % Goal: < 7.0 %Additional Action Suggested: > 8.0 %Note: Hemoglobin A1c results are invalid for patients with abnormal amounts of HbF. Blood transfusions may impact the HbA1c concentration in the patient sample. Estimated Average Glucose 123 mg/dL [facility] Comment:eAG = Estimated ave rage glucose which is %A1C expressed asaverage glucose, using the formula of the N3M-UwonkfpMnprgoy Glucose study (ADAG), Diabetes Care, Vol.31,#8,Jun. 2007 Blood Venous blood specimen / Unknown 03/18/2025 3:42 PM EDT 03/18/2025 5:43 PM EDT us Angela Silveira CAST ASSOCIATE LAB BLOOD ORDERABLES Final Res ult Performing Organization Address [facility]/ZIP Co de Phone Number [facility] [address] [place] [address] [phone] * Hepatitis Panel, General (07/20/2024 8:40 AM EDT) Hepatitis A IgM Nonreactive Nonreactive [facility] Comment:IgM antibodies to [place] V not detected; does not exclude earlyacute or recovered HAV infection. ~Hepatitis B Surface Antibody REACTIVE Nonreactive [facility] Comment:REACTIVE: > 11.99 mI U/mL Hepatitis B Core Antibody Nonreactive Nonreactive [facility] Hepatitis C Antibody Nonreactive Nonreactive [facility] Comment:Antibodies to HCV no t detected; does not exclude early acuteHCV infection. Hepatitis B Surface Ag Negative Negative [facility] 07/20/2024 8:40 AM EDT 07/20/2024 8:40 AM EDT us Generic External Data Provider LAB BLOOD ORDERAB LES Final Result Performing Organization Address [facility]/ZIP Co de Phone Number [facility] [address] [place] [address] [phone] * Mammography (06/17/2024) Mammogram BIRADS 1 Normal, Abnormal, BIRADS 1 , BIRADS 2 Anatomical Region Laterality Modality Other Charbel Lyons MD HEALTH MAINTENANCE Final Result * Lipid Panel, Standard (05/17/2024 10:55 AM EDT) Triglycerides 112 <150 mg/dL [facility] Comment:Desirable Triglyceri de: less than 150 mg/dLBorderline High Triglyceride 150-199 mg/dLHigh Triglyceride: 200-499 mg/dLVery High Triglyceride: greater than or equal to 5OO mg/dL Cholesterol 152 <200 mg/dL [facility] Comment:Desirable Cholestero l: less than 200 mg/dLBorderline High Cholesterol: 200-239 mg/dLHigh Cholesterol: greater than 239 mg/dL LDL Cholesterol Calculated 80 <100 mg/dL [facility] Comment:Desirable LDL: less than 100 mg/dLNear Optimal/Above Optimal LDL: 110- 129 mg/dLBorderline High LDL: 130-159 mg/dLHigh LDL: 160-189 mg/dLVery High LDL: greater than or equal to 190 mg/dL HDL Cholesterol 50 >40 mg/dL [facility] Comment:Desirable HDL: great er than 40 mg/dL Note: This HDL assay may give artificially low results in patients with liver disease. 05/17/2024 10:5 5 AM EDT 05/17/2024 11:39 AM EDT us Charbel Lyons MD LAB BLOOD ORDERABLES Final Resul t [facility] [address] [place] [phone] * Diabetes Eye Exam (03/11/2024) Eye Exam Normal Normal us Charbel Lyons MD HEALTH MAINTENANCE Final Result * Hm Colonoscopy (12/15/2019) Colonoscopy Normal Normal 12/15/[address] - 12/15/2019 1:24 PM EST Colonoscopy performed at [facility] ( see scanned report) recommended 10 year follow up us Historical Provider HEALTH MAINTENANCE Final Result from Last 3 Months or Most Recently Relevant to Health Maintenance Insurance [facility] C3 HSN PARTIAL Care Teams Compliance And Control Analyst Relationship Specialty Start Date End Date Name, MD Charbel [address] [place] [phone] PCP - General Family Medicine 02/26/16 Robin Muniz, RN [address] [place] [address] [place] [address] Registered Nurse Family Medicine 04/22/25 Leann Edgar 04/22/25 [facility] 04/28/25
--- OUTSIDE RECORDS SUMMARY | 2025-07-21 11:45 | XMS_ITS | Encounter Summary ---
Author Organization [employer] Address [address] [place] [address] [address] [place] [address] Care Team Providers Care Help Desk Coordinator Name Role Phone Name, Charbel CARRILLO Primary Care Provider [phone] Мария Gudino PharmD Unavailable [phone] Robin Muniz RN Unavailable [phone] Leann Edgar Unavailable Reason for Visit * Reason Onset Date Comments Error 12/08/2023 Encounter Details Date Type Department Care Team (Late st Contact Info) Description 12/08/2023 Telephone [facility] MEDICINE [address] [place] [address] Name, MD Charbel [address] [place], [place] [phone] Error Social History Tobacco Use Types Packs/Day Years Used Date Smoking Tobacco: Never Smokeless Tobacco: Never Alcohol Use Standard Drinks/Week Comments Never 0 (1 standard drink = 0.6 oz pur e alcohol) Depression Answer Date Recorded Patient Health Questionnaire-9 Score 0 10/23/2022 Housing Stability Answer Date Recorded What is your housing situation today? I have sammicharlotte lopez 09/01/[address] you [...] Info) Description 09/02/2025 11:00 AM EDT Telemedicine [facility] MEDICINE [address] [place] [id number] Roz Le RN documented as of this encounter Goals Goal Patient Goal Type Associated Problems Recent Progress Patient-Stated? Author Record your blood pressure once per day Blood Pressure No PuМария jovel, PharmD Blood Pressure < 140/90 Blood Pressure 130/90( 025 3:47 PM EDT) No Мария Gudino, PharmD documented as of this encounter Visit Diagnoses Not on filedocumented in this encounter Additional Health Concerns Assessment Noted Time PHQ-9 Depression Total Score: 0 10/23/20 22 3:25 PM EST documented as of this encounter Care Teams Help Desk Coordinator Relationship Specialty Start Date End Date Name, MD Charbel [address] [place] [id number] PCP - General Family Medicine 02/26/16 Мария Gudino, PharmD [address] [place] [phone] Pharmacist Internal Medicine 04/29/23 07/11/25 Robin Muniz RN [address] [place] [id number] Registered Nurse Family Medicine 04/22/25 Leann Edgar 04/22/25 [facility] 04/28/25 documented as of this encounter
--- OUTSIDE RECORDS SUMMARY | 2025-07-21 11:45 | XMS_ITS | Clinical Summary ---
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 Name Role Phone Unavailable Primary Care Provider Unavailabl e Allergies Active Allergy Reactions Criticality Noted Date Comments Iodinated Contrast Media Hives,Other,Rash Low 01/18/2016 Other reaction(s): Other (see comments) Other reaction(s): hives, itchy Latex Anaphylaxis,Hives,It fan,Other High 11/14/2004 Level of certainty: Moderately Certain latex Other reaction(s): Other (see comments) Other Reaction(s): Unknown Level of certainty: Moderately Certain Lisinopril Rash Low 05/26/2024 Level of certainty: Moderately Certain Lovell Flavor Hives,Wheezing 05/30/2009 Nsaids (Non-Steroidal Anti-Inflammatory Drug) Other 08/01/2021 Other reaction(s): Other (see comments) Patient tolerated aspirin Patient tolerated aspirin Passion Fruit Rash 07/04/2025 Level of certainty: Moderately Certain Penicillins Anaphylaxis,Hives,It fan,Other,Swelling ,Wheezing High 07/08/2003 Level of certainty: Moderately Certain Product containing penicillin (product) Other reaction(s): Hives / Skin Rash, SOB Other reaction(s): Hives/Urticaria, Other (see comments) Other Reaction(s): Unknown Level of certainty: Moderately Certain Medications aspirin 81 mg EC tablet Take 1 tablet (81 mg total) by mouth 1 (one) time each day. 2 Active atorvastatin (LIPITOR) 40 mg tablet Take 1 tablet (40 mg total) by mouth at bedtime. 4 Active carvediloL (COREG) 25 mg tablet Take 1 tablet (25 mg total) by mouth 2 (two) times a day with meals. 4 Active clonazePAM (KlonoPIN) 1 mg tablet Take 1 tablet (1 mg total) by mouth 3 (three) times a day if needed for anxiety. Max Daily Amount: 3 mg 5 Active diclofenac (VOLTAREN) 1 % topical gel Apply 2 g topically 2 (two) times a day. Active EPINEPHrine (EPIPEN) 0.3 mg/0.3 mL injection Inject 0.3 mL (0.3 mg total) into the thigh if needed for anaphylaxis. 6 Active FeroSuL 325 mg (65 mg iron) tablet Take 1 tablet (325 mg total) by mouth 1 (one) time each day. 5 Active gabapentin (NEURONTIN) 800 mg tablet Take 1 tablet (800 mg total) by mouth 2 (two) times a day. 5 Active hydroxychloroqu ine (PLAQUENIL) 200 mg tablet Take 1 tablet (200 mg total) by mouth 2 (two) times a day. 9 Active insulin lispro 100 unit/mL injection Inject 6-18 Units under the skin 3 (three) times a day before meals. Active Lantus Solostar U-100 Insulin 100 unit/mL (3 mL) injection pen Inject under the skin at bedtime. 2 Active Xopenex HFA 45 mcg/actuation inhaler Take 2 puffs by mouth every 6 (six) hours if needed. 2 Active melatonin 5 mg tablet Take 2 tablets (10 mg total) by mouth at bedtime as needed for sleep. Active minoxidiL (LONITEN) 2.5 mg tablet Take 1 tablet (2.5 mg total) by mouth 1 (one) time each day. 4 Active mometasone (ELOCON) 0.1 % ointment Apply 1 Application topically 1 (one) time each day. 4 Active montelukast (SINGULAIR) 10 mg tablet Take 1 tablet (10 mg total) by mouth 1 (one) time each day. 2 Active OXcarbazepine (TRILEPTAL) 150 mg tablet Take 1 tablet (150 mg total) by mouth 1 (one) time each day in the morning. 3 Active OXcarbazepine (TRILEPTAL) 300 mg tablet Take 1 tablet (300 mg total) by mouth at bedtime. 4 Active Ozempic 2 mg/dose (8 mg/3 mL) injection pen Inject 2 mg under the skin once a week. 5 Active umeclidinium (INCRUSE ELLIPTA) 62.5 mcg/actuation inhalation Inhale 1 puff by mouth 1 (one) time each day. 9 Active valsartan-hydro CHLOROthiazide (DIOVAN-HCT) 320-25 mg per tablet Take 1 tablet by mouth 1 (one) time each day. 4 Active zolpidem (AMBIEN) 10 mg tablet Take 1 tablet (10 mg total) by mouth at bedtime. Max Daily Amount: 10 mg 1 Active Lactobacillus acidophilus 100 mg (1 billion cell) capsule Take 1 capsule by mouth 2 (two) times a day. 60 each 5 08/09/20 25 Active oxyCODONE (ROXICODONE) 5 mg immediate release tablet Take 1 tablet (5 mg total) by mouth every 6 (six) hours if needed for moderate pain for up to 3 days. Max Daily Amount: 20 mg 12 tablet 5 07/10/20 25 sulfamethoxazol e-trimethoprim (Bactrim DS) 800-160 mg per tablet Take 1 tablet by mouth 2 (two) times a day for 10 days. 20 each 5 07/20/20 25 acetaminophen (TYLENOL) 500 mg tablet Take 2 tablets (1,000 mg total) by mouth every 6 (six) hours if needed for mild pain for up to 10 days. 30 tablet 5 07/20/20 25 Active Problems Problem Noted Date Diagnosed Date S/P abdominoplasty 07/12/2025 Abdominal wall seroma 07/12/2025 Abdominal wall seroma, initial encounter 025 Encounters Date Type Department Care Team Description 07/12/2025 11:30 AM EDT Consult [facility] [place] [address] [place] [phone] Cesar Berg PA S/P abdominoplasty (Primary Dx); Abdominal wall seroma, sequela 07/10/2025 4:21 PM EDT - 07/10/2025 7:25 PM EDT Emergency [facility] [address] [place] [phone] Arpit Buckley MD Lower abdominal pain (Primary Dx); Abdominal wall seroma, initial encounter; Suspected soft tissue infection Discharge Disposition: Home or Self Care 07/05/2025 12:24 AM EDT - 07/07/2025 12:20 PM EDT Hospital Encounter [facility] [address] [place] [phone] Jean-Pierre Ortiz MD Alam, [place], MD Abdominal wall seroma, initial encounter (Primary Dx) Discharge Disposition: [place] [facility] [place] Surgical History Surgery Date Site/Laterality Comments SECTION [...] drink = 0.6 oz pur e alcohol) Interpersonal Safety Answer Date Record ed Physical Abuse 07/05/2025 Verbal Abuse 07/05/2025 Comments Unknown Sex and Gender Information Value Date Recorded Sex Assigned at Not on file Legal Sex Female 2:34 PM EST Gender Identity Not on file Sexual Orientation Not on file Obstetrics History Last Filed Vital Signs Vital Sign Reading Time Taken Comments Blood Pressure 122/86 07/12/2025 10:44 AM EDT Pulse 90 07/12/2025 10:44 AM EDT Temperature 36.5 C (97.7 F) 07/10/2025 4:43 PM EDT Respiratory Rate 18 07/10/2025 4:43 PM EDT Oxygen Saturation 97% 07/10/2025 4:43 PM EDT Inhaled Oxygen Concentration - - Weight 78.1 kg (172 lb 3.2 oz) 07/12/2025 10:44 AM EDT Height 167.6 cm (5' 6 ) 07/12/2025 10:44 AM EDT Body Mass Index 27.79 07/12/2025 10:44 AM EDT Plan of Treatment Health Maintenance Due Date Last Done Comments Breast Cancer Screening 1969 Diabetes: Annual Foot Exam 1979 Diabetes: Annual Retina Eye Exam 1979 Hepatitis A Vaccines (1 of 2 - Risk 2-dose series) 02/18/1988 Cervical Cancer Screening: Pap Smear 1990 Colorectal Cancer Screening: Colonoscopy 10/30/2022 Hepatitis C Screening 10/30/2022 Social Influencers of Health Screening 10/30/2022 COVID-19 Vaccine ( season) 2024 09/24/2023, 08/26/2022, 03/14/2022, Additional history exists Depression Screening 11/17/2024 Diabetes: Annual Urine Albumin-Creatinine Ratio (uACR) 07/04/2025 Influenza Vaccine (#1) 2025 , 08/27/2023, 08/06/2022, Additional history exists Diabetes: Blood Sugar Control Test (HGBA1C) 09/18/2025 03/18/2025 Diabetes: Annual GFR (Glomerular Filtration Rate) 07/10/2026 07/10/2025, 07/05/2025, 07/05/2025, Additional history exists Hypertension/CHF/CAD Annual BMP Blood Test 07/10/2026 07/10/2025, 07/05/2025, 07/05/2025, Additional history exists DTaP,Tdap,and Td Vaccines (4 - Td or Tdap) 11/03/2027 11/03/2017, 09/30/2006, 09/30/2006 Cholesterol Screening (Lipid Panel) 05/17/2029 05/17/2024 Pneumococcal Vaccine: 50+ Years Completed 04/01/2023, 05/30/2009 Hepatitis B Vaccines Completed 07/07/2023, 04/01/20 Zoster Vaccines Completed 07/07/2023, 04/01/2023 HIV Screening Completed 03/18/2025 HIB Vaccines Aged [...] on patient's age to complete this topic Procedures Procedure Name Priority Date/Time Associated Diagnosis Comments CT ABDOMEN PELVIS WO CONTRAST STAT 07/10/2025 4:52 PM EDT CBC WITH AUTO DIFFERENTIAL STAT 07/10/2025 4:38 PM EDT CBC AND DIFFERENTIAL STAT 07/10/2025 4:38 PM EDT BASIC METABOLIC PANEL STAT 07/10/2025 4:38 PM EDT POCT GLUCOSE BLOOD Routine 07/07/2025 8: 01 AM EDT POCT GLUCOSE BLOOD Routine 07/06/2025 7: 54 PM EDT POCT GLUCOSE BLOOD Routine 07/06/2025 5: 12 PM EDT CULTURE BODY FLUID WITH GRAM STAIN Routine 07/06/2025 12:25 PM EDT Abdominal wall seroma, initial encounter US GUIDED PERC DRAIN PLCMNT Routine 07/06/2025 12:22 PM EDT POCT GLUCOSE BLOOD Routine 07/06/2025 7: 51 AM EDT POCT GLUCOSE BLOOD Routine 07/05/2025 8: 42 PM EDT POCT GLUCOSE BLOOD Routine 07/05/2025 4: 13 PM EDT POCT GLUCOSE BLOOD Routine 07/05/2025 11 :01 AM EDT POCT GLUCOSE BLOOD Routine 07/05/2025 9: 09 AM EDT XR CHEST 1 VIEW STAT 07/05/2025 7:05 AM EDT URINALYSIS WITH REFLEX MICROSCOPIC STAT 07/05/2025 7:03 AM EDT URINALYSIS WITH REFLEX MICROSCOPIC STAT 07/05/2025 7:03 AM EDT CBC WITH AUTO DIFFERENTIAL Routine 07/05/2025 6:04 AM EDT CBC AND DIFFERENTIAL Routine 07/05/2025 6:04 AM EDT BASIC METABOLIC PANEL Routine 07/05/2025 6:[address] ABDOMEN PELVIS WO CONTRAST STAT 07/05/2025 12:45 AM EDT C-REACTIVE PROTEIN Add-On 07/05/2025 12 :30 AM EDT CBC WITH AUTO DIFFERENTIAL STAT 07/05/2025 12:30 AM EDT ACTIVATED PARTIAL THROMBOPLASTIN TIME STAT 07/05/2025 12:30 AM EDT PROTHROMBIN TIME WITH INR STAT 07/05/2025 12:30 AM EDT CBC AND DIFFERENTIAL STAT 07/05/2025 12:30 AM EDT MAGNESIUM STAT 07/05/2025 12:30 AM EDT LIPASE STAT 07/05/2025 12:30 AM EDT LACTATE STAT 07/05/2025 12:30 AM EDT HCG, SERUM, QUALITATIVE STAT 07/05/20 12:30 AM EDT COMPREHENSIVE METABOLIC PANEL STAT 07/05/2025 12:30 AM EDT from Last 3 Months Results * CT Abdomen Pelvis wo Contrast (07/10/2025 4:52 PM EDT) Only the most recent of2 resultswithin the time period is included. Anatomical Region Laterality Modality Body Computed Tomogra phy 07/10/2025 6:20 PM EDT Impressions 07/10/2025 6:20 PM EDT Decreasing sizes of the anterior abdominal wall collections, status post drain placement. Recommend continued attention on follow-up. This document has been electronically signed by: Lauri Vanegas MD on 07/10/2025 18:20:26 Narrative 07/10/2025 6:20 PM EDT INDICATION: Abdominal pain, acute, nonlocalized CT abdomen and pelvis without contrast Comparison: CT - CT ABD PEL WO CONTRAST - 07/05/25 00:44 EDT Findings: Atelectasis/scarring osteopenia. Possible tiny stone noted posterior aspect of the L5. Hepatomegaly with steatosis. Duplex left renal collecting system. No urolithiasis or hydronephrosis. No bowel obstruction, pneumoperitoneum, or pneumatosis. Interval placement of the right anterior abdominal wall drainage catheter, pigtail coiled in the rectus sheath. There is mild residual thin fluid collection in the supra and infra umbilical regions with thick stroud, superiorly measuring 5 mm thickness truly measuring up to 9 mm in thickness. Similar soft tissue defect in the right anterior abdominal wall. Prominent inguinal nodes, may be reactive. Scattered colonic diverticulosis without diverticulitis or colitis. No acute fracture. Postcholecystectomy Diffuse anasarca with skin thickening. Procedure Note Lauri Vanegas MD - 07/10/2025 INDICATION: Abdominal pain, acute, nonlocalized CT abdomen and pelvis without contrast Comparison: CT - CT ABD PEL WO CONTRAST - 07/05/25 00:44 EDT Findings: Atelectasis/scarring osteopenia. Possible tiny stone noted posterior aspect of the L5. Hepatomegaly with steatosis. Duplex left renal collecting system. No urolithiasis or hydronephrosis. No bowel obstruction, pneumoperitoneum, or pneumatosis. Interval placement of the right anterior abdominal wall drainagecatheter, pigtail coiled in the rectus sheath. There is mild residual thin fluid collection in the supra and infra umbilical regions with thick stroud, superiorly measuring 5 mm thickness truly measuring up to 9 mm in thickness. Similar soft tissue defect in the right anterior abdominal wall. Prominent inguinal nodes, may be reactive. Scattered colonic diverticulosis without diverticulitis or colitis. No acute fracture. Postcholecystectomy Diffuse anasarca with skin thickening. IMPRESSION: Decreasing sizes of the anterior abdominal wall collections, status post drain placement. Recommend continued attention on follow-up. This document has been electronically signed by: Lauri Vanegas MD on 07/10/2025 18:20:26 us Arpit Ina CARRILLO IMG CT PROCEDURES Final Result * (ABNORMAL) CBC auto differential (07/10/2025 4:38 PM EDT) Only the most recent of3 resultswithin the time period is included. [facility] WBC 8.2 4.8 - 10.8 K/mcL LAB [facility] RBC 5.30(H) 3.80 - 4.80 M/mcL LAB HEMETOLOGY METHOD 07/10/2025 5:28 PM [facility] Hemoglobin 11.8 11.5 - 16.0 g/dL LAB HEMETOLOGY METHOD 07/10/2025 5:[facility] Hematocrit 39.9 35.0 - 47.0 % LAB HEMETOLOGY METHOD 07/10/2025 5:28 PM [facility] MCV 75.0(L) 79.0 - 98.0 FL LAB HEMETOLOGY METHOD 07/10/2025 5:28 PM [facility] MCH 22.2(L) 27.0 - 32.0 pcg LAB HEMETOLOGY METHOD 07/10/2025 5:28 PM [facility] MCHC 29.6(L) 32.0 - 37.0 g/dL LAB HEMETOLOGY METHOD 07/10/2025 5:28 PM [facility] RDW 14.5 11.0 - 15.0 % LAB HEMETOLOGY METHOD 07/10/2025 5:28 PM [facility] Platelets 267 130 - 400 K/mcL LAB HEMETOLOGY METHOD 07/10/2025 5:28 PM EDT [facility] MPV 10.8 7.0 - 11.0 FL LAB HEMETOLOGY METHOD 07/10/2025 5:28 PM [facility] NRBC 0.0 <1.0 % LAB HEMETOLOGY METHOD 07/10/2025 5:28 PM [facility] NRBC Absolute 0.00 <0.10 K/mcL LAB HEMETOLOGY METHOD 07/10/2025 5:28 PM [facility] Neutrophils Relative 57.9 % LAB HEMETOLOGY METHOD 07/10/2025 5:28 PM [facility] Lymphocytes Relative 33.9 % LAB HEMETOLOGY METHOD 07/10/2025 5:28 PM [facility] Monocytes Relative 5.9 % LAB HEMETOLOGY METHOD 07/10/2025 5:28 PM [facility] Eosinophils Relative 1.5 % LAB HEMETOLOGY METHOD 07/10/2025 5:28 PM [facility] Basophils Relative 0.6 % LAB HEMETOLOGY METHOD 07/10/2025 5:28 PM [facility] Immature Granulocytes Relative 0.2 % LAB HEMETOLOGY METHOD 07/10/2025 5:28 PM [facility] Neutrophils Absolute 4.72 1.50 - 7.00 K/mcL LAB HEMETOLOGY METHOD 07/10/2025 5:28 PM [facility] Lymphocytes Absolute 2.76 1.00 - 5.00 K/mcL LAB HEMETOLOGY METHOD 07/10/2025 5:28 PM [facility] Monocytes Absolute 0.48 0.20 - 1.00 K/mcL LAB HEMETOLOGY METHOD 07/10/2025 5:28 PM [facility] Eosinophils Absolute 0.12 0.00 - 0.50 K/mcL LAB HEMETOLOGY METHOD 07/10/2025 5:28 PM EDT [facility] Basophils Absolute 0.05 0.00 - 0.20 K/[facility] LAB HEMETOLOGY METHOD 07/10/2025 5:28 PM EDT [facility] Immature Granulocytes Absolute 0.02 0.00 - 0.03 K/[facility] LAB HEMETOLOGY METHOD 07/10/2025 5:28 PM EDT [facility] Blood Venous blood specimen / Unknown Venipuncture / Unknown 07/10/2025 4:38 PM EDT 07/10/2025 5:13 PM EDT us Arpit Buckley MD LAB BLOOD ORDERABLES Final Resul t [facility] [address] [place] [address], * Basic Metabolic Panel (BMP) (07/10/2025 4:38 PM EDT) Only the most recent of2 resultswithin the time period is included. Sodium 140 133 - 145 mmol/L LAB CHEMISTRY METHOD 07/10/2025 6:02 PM [facility] Potassium 4.2 3.5 - 5.5 mmol/L LAB CHEMISTRY METHOD 07/10/2025 6:02 PM [facility] Comment:Hemolysis present Chloride 107 96 - 110 mmol/L LAB CHEMISTRY METHOD 07/10/2025 6:02 PM [facility] CO2 27 21 - 32 mmol/L LAB CHEMISTRY METHOD 07/10/2025 6:02 PM [facility] Anion Gap 6 3 - 11 LAB CHEMISTRY METHOD 07/10/2025 6:02 PM [facility] Glucose 95 70 - 100 mg/dL LAB CHEMISTRY METHOD 07/10/2025 6:02 PM [facility] BUN 17 5 - 25 mg/dL LAB CHEMISTRY METHOD 07/10/2025 6:02 PM EDT [facility] Creatinine 0.89 0.50 - 1.10 mg/dL LAB CHEMISTRY METHOD 07/10/2025 6:02 PM EDT [facility] eGFR 76 >=60 mL/min/1. 73m2 LAB CHEMISTRY METHOD 07/10/2025 6:02 PM EDT [facility] Comment:Calculation based on the Chronic Kidney Disease Epidemiology Collaboration (CKD-EPI) equation refit without adjustment for race. BUN/Creatinine Ratio 19.1 LAB CHEMISTRY METHOD 07/10/2025 6:02 PM EDT [facility] Calcium 9.6 8.5 - 10.5 mg/dL LAB CHEMISTRY METHOD 07/10/2025 6:02 PM EDT [facility] Blood Venous blood specimen / Unknown Venipuncture / Unknown 07/10/2025 4:38 PM EDT 07/10/2025 5:13 PM EDT us Arpit Buckley MD LAB BLOOD ORDERABLES Final Resul t [facility] [address] [place] [address], [place] [phone] * (ABNORMAL) POCT Glucose, blood (07/07/2025 8:01 AM EDT) Only the most recent of8 resultswithin the time period is included. Glucose POCT 165(H) 70 - 100 mg/dL 07/07/2025 8:02 AM EDT [facility] Blood Capillary blood specimen / Unknown 07/07/2025 8:01 AM EDT 07/07/2025 8:03 AM EDT us Estephania Gramajo MD LAB POINT OF CARE TE ST DOCKED DEVICE UNSOLICITED RESULTS Final Result [facility] [address] [place] [address], [place] [phone] * Culture body fluid with gram stain (07/06/2025 12:25 PM EDT) Fluid Culture No growth at 3 days LAB MICROBIOLOGY METHOD 8:08 AM EDT [facility] Gram Stain Result No polymorphonuclear leukocytes, No epithelial cells, and No organisms noted 8:08 AM EDT [facility] Comment:This is an appended report. These results have been appended to a previously preliminary verified report. Aspirate Structure of abdominopelvic wall / Unknown 07/06/2025 12:25 PM EDT 07/06/2025 12:37 PM EDT us Vernell SAHU LAB MICROBIOLOGY - GENERAL ORDER CARLOS Final Result [facility] [address] [place] [address], [place] [phone] * US Guided Perc Drain Plcmnt (07/06/2025 12:22 PM EDT) Anatomical Region Laterality Modality Ultrasound 07/06/2025 2:04 PM EDT Narrative 07/06/2025 4:44 PM EDT INDICATION: Chronic abdominal wall hematoma/seroma/collection TECHNIQUE: Written informed consent obtained. Patient placed supine on the ultrasound stretcher. Multiple images obtained of the abdomen. After review of the images, the appropriate area of skin was localized under real-time ultrasound. This region was draped and prepped in the usual sterile fashion. 2% buffered lidocaine was used as a local anesthetic. Under real-time ultrasound guidance, trocar technique was used to place 8 Guyanese pigtail catheter into collection. Catheter was attached to accordion drain after manual aspiration of approximately 20 cc of bloody fluid which was sent to lab for testing. The catheter was secured to the skin using single nonabsorbable 3-0 Ethilon suture. The patient tolerated the procedure well and left the department in stable condition without immediate complications. FINDINGS: Direct comparison made to study from CT abdomen and pelvis without contrast July 05, 2025 Images obtained during needle biopsy demonstrate tip of needle within the center of the collection. CONCLUSION: Ultrasound-guided placement of 8 Guyanese pigtail catheter into superficial anterior abdominal collection. Patient is to follow-up with plastic surgery in 1-2 weeks as outpatient. -------- FINAL REPORT -------- Dictated By: Vernell Yancey Dictated Date: 07/06/2025 14:04 ET Assigned Physician: Rah Brandt Reviewed and Electronically Signed By: Rah Brandt Signed Date: 07/06/2025 16:44 ET Workstation ID: [id number] Transcribed By: Self Edit Transcribed Date: 07/06/2025 14:26 ET Resident/PA/LAST CLEANER: Vernell Yancey Procedure Note Rah Brandt MD - 07/06/2025 INDICATION: Chronic abdominal wall hematoma/seroma/collection TECHNIQUE: Written informed consent obtained. Patient placed supine on theultrasound stretcher. Multiple images obtained of the abdomen. Afterreview of the images, the appropriate area of skin was localized underreal-time ultrasound. This region was draped and prepped in the usualsterile fashion. 2% buffered lidocaine was used as a local anesthetic.Under real-time ultrasound guidance, trocar technique was used to place 8French pigtail catheter into collection. Catheter was attached toaccordion drain after manual aspiration of approximately 20 cc of bloodyfluid which was sent to lab for testing. The catheter was secured to theskin using single nonabsorbable 3-0 Ethilon suture. The patient toleratedthe procedure well and left the department in stable condition withoutimmediate complications. FINDINGS: Direct comparison made to study from CT abdomen and pelviswithout contrast July 05, 2025 Images obtained during needle biopsy demonstrate tip of needle within thecenter of the collection. CONCLUSION: Ultrasound-guided placement of 8 Guyanese pigtail catheter into superficialanterior abdominal collection. Patient is to follow-up with plasticsurgery in 1-2 weeks as outpatient. -------- FINAL REPORT -------- Dictated By: Yancey, Vernell Dictated Date: 07/06/2025 14:04 ET Assigned Physician: Rah Brandt Reviewed and Electronically Signed By: Rah Brandt Signed Date: 07/06/2025 16:44 ET Workstation ID: [id number] Transcribed By: Self Edit Transcribed Date: 07/06/2025 14:26 ET Resident/PA/LAST CLEANER: Vernell Yancey us Vernell SAHU IMG US PROCEDURES Final Result * XR Chest 1 View (07/05/2025 7:05 AM EDT) Anatomical Region Laterality Modality Body Radiographic Kassy ging 07/05/2025 8:11 AM EDT Impressions 07/05/2025 8:11 AM EDT Normal chest radiographs. -------- FINAL REPORT -------- Dictated By: Lauri Palmer Dictated Date: 07/05/2025 08:11 ET Assigned Physician: Lauri Palmer Reviewed and Electronically Signed By: Lauri Palmer Signed Date: 07/05/2025 08:11 ET Workstation ID: [id number] Transcribed By: Self Edit Transcribed Date: 07/05/2025 08:11 ET Narrative 07/05/2025 8:11 AM EDT PROCEDURE: AP chest radiograph. HISTORY: dyspnea. COMPARISON: 09/14/2024. FINDINGS: The heart, mediastinum, lungs, pleural spaces, and bony thorax are normal. Procedure Note Lauri Palmer MD - 07/05/2025 PROCEDURE: AP chest radiograph. HISTORY: dyspnea. COMPARISON: 09/14/2024. FINDINGS: The heart, mediastinum, lungs, pleural spaces, and bony thorax arenormal. IMPRESSION: Normal chest radiographs. -------- FINAL REPORT -------- Dictated By: Lauri Palmer Dictated Date: 07/05/2025 08:11 ET Assigned Physician: Lauri Palmer Reviewed and Electronically Signed By: Lauri Palmer Signed Date: 07/05/2025 08:11 ET Workstation ID: [id number] Transcribed By: Self Edit Transcribed Date: 07/05/2025 08:11 ET us Jean-Pierre Ortiz MD IMG XR PROCEDURES Final Res ult * Urinalysis with reflex microscopic (07/05/2025 7:03 AM EDT) Specific Bryce Urine 1.023 1.003 - 1.030 LAB URINALYSIS - AUTOMATED METHOD 07/05/2025 8:33 AM [facility] pH, Urine 6.0 5.0 - 8.0 pH LAB URINALYSIS - AUTOMATED METHOD 07/05/2025 8:33 AM [facility] Leukocytes, Urine Negative Negative LAB URINALYSIS - AUTOMATED METHOD 07/05/2025 8:33 AM [facility] Nitrite, Urine Negative Negative LAB URINALYSIS - AUTOMATED METHOD 07/05/2025 8:33 AM [facility] Protein, Urine Negative <=Trace mg/dL LAB URINALYSIS - AUTOMATED METHOD 07/05/2025 8:33 AM [facility] Glucose, Urine Negative Negative mg/dL LAB URINALYSIS - AUTOMATED METHOD 07/05/2025 8:33 AM [facility] Ketones, Urine Negative Negative mg/dL LAB URINALYSIS - AUTOMATED METHOD 07/05/2025 8:33 AM [facility] Urobilinogen, Urine 0.2 0.2 - 1.0 mg/dL LAB URINALYSIS - AUTOMATED METHOD 07/05/2025 8:33 AM [facility] Bilirubin, Urine Negative Negative LAB URINALYSIS - AUTOMATED METHOD 07/05/2025 8:33 AM [facility] Blood, Urine Negative Negative LAB URINALYSIS - AUTOMATED METHOD 07/05/2025 8:33 AM [facility] Urine Urine specimen obtained by clean catch procedure / Unknown Non-blood Collection / Unknown 07/05/2025 7:03 AM EDT 07/05/2025 8:20 AM EDT Hannah SAHU LAB URINE ORDERABLES Fin al Result Performing Organization Address City/[facility]/ZIP Co de Phone Number [facility] [address] [place] [address], [place] [phone] * APTT (07/05/2025 12:30 AM EDT) [facility] aPTT 32.5 24.1 - 39.3 sec LAB COAGULATION METHOD 07/05/2025 12:48 AM EDT [facility] Blood Venous blood specimen / Unknown Venipuncture / Unknown 07/05/2025 12:30 AM EDT 07/05/2025 12:35 AM EDT Hannah SAHU LAB BLOOD ORDERABLES Fin al Result Performing Organization Address [facility] Co de Phone Number [facility] [address] [place] [address], [place] [phone] * (ABNORMAL) Protime-INR (07/05/2025 12:30 AM EDT) [facility] Protime 10.4(L) 10.6 - 13.9 sec LAB COAGULATION METHOD 07/05/2025 12:48 AM EDT [facility] INR 0.8 LAB COAGULATION METHOD 07/05/2025 12:48 AM EDT [facility] Blood Venous blood specimen / Unknown Venipuncture / Unknown 07/05/2025 12:30 AM EDT 07/05/2025 12:35 AM EDT Hannah SAHU LAB BLOOD ORDERABLES Fin al Result Performing Organization Address City/[facility]/ZIP Co de Phone Number [facility] [address] [place] [address], [place] [phone] * (ABNORMAL) C-reactive protein (07/05/2025 12:30 AM EDT) C-Reactive Protein 0.74(H) <=0.50 mg/dL LAB CHEMISTRY METHOD 07/05/2025 5:23 AM EDT [facility] Blood Venous blood specimen / Unknown Venipuncture / Unknown 07/05/2025 12:30 AM EDT 07/05/2025 12:35 AM EDT Jean-Pierre Ortiz MD LAB BLOOD ORDERABLES Final Result Performing Organization Address City/[facility]/ZIP Co de Phone Number [facility] [address] [place] [address], * hCG Qualitative (07/05/2025 12:30 AM EDT) hCG Qual Negative Negative 07/05/2025 12:55 AM EDT [facility] Blood Venous blood specimen / Unknown Venipuncture / Unknown 07/05/2025 12:30 AM EDT 07/05/2025 12:35 AM EDT Hannah SAHU LAB BLOOD ORDERABLES Fin al Result Performing Organization Address City/[facility]/ZIP Co de Phone Number [facility] [address] [place] [address], [place] [phone] * Magnesium (07/05/2025 12:30 AM EDT) Magnesium 2.4 1.9 - 2.6 mg/dL LAB CHEMISTRY METHOD 07/05/2025 1:03 AM EDT [facility] Blood Venous blood specimen / Unknown Venipuncture / Unknown 07/05/2025 12:30 AM EDT 07/05/2025 12:35 AM EDT Hannah SAHU LAB BLOOD ORDERABLES Fin al Result Performing Organization Address [facility] de Phone Number [facility] [address] [place] [address], * Lipase (07/05/2025 12:30 AM EDT) Lipase 28 13 - 75 unit/L LAB CHEMISTRY METHOD 07/05/2025 1:03 AM EDT [facility] Blood Venous blood specimen / Unknown Venipuncture / Unknown 07/05/2025 12:30 AM EDT 07/05/2025 12:35 AM EDT Hannah SAHU LAB BLOOD ORDERABLES Fin al Result Performing Organization Address [facility] de Phone Number [facility] [address] [place] [address], * Lactate (07/05/2025 12:30 AM EDT) Lactate 0.7 0.4 - 2.0 mmol/L LAB CHEMISTRY METHOD 07/05/2025 1:02 AM EDT [facility] Blood Venous blood specimen / Unknown Venipuncture / Unknown 07/05/2025 12:30 AM EDT 07/05/2025 12:34 AM EDT Hannah SAHU LAB BLOOD ORDERABLES Fin al Result Performing Organization Address [facility] de Phone Number [facility] [address] [place] [address], [place] [phone] * (ABNORMAL) Comprehensive Metabolic Panel (CMP) (07/05/2025 12:30 AM EDT) Sodium 138 133 - 145 mmol/L LAB CHEMISTRY METHOD 07/05/2025 1:03 AM EDT [facility] Potassium 4.2 3.5 - 5.5 mmol/L LAB CHEMISTRY METHOD 07/05/2025 1:03 AM [facility] Chloride 107 96 - 110 mmol/L LAB CHEMISTRY METHOD 07/05/2025 1:03 AM [facility] CO2 27 21 - 32 mmol/L LAB CHEMISTRY METHOD 07/05/2025 1:03 AM [facility] Anion Gap 4 3 - 11 LAB CHEMISTRY METHOD 07/05/2025 1:03 AM [facility] Glucose 129(H) 70 - 100 mg/dL LAB CHEMISTRY METHOD 07/05/2025 1:03 AM [facility] BUN 24 5 - 25 mg/dL LAB CHEMISTRY METHOD 07/05/2025 1:03 AM [facility] Creatinine 0.86 0.50 - 1.10 mg/dL LAB CHEMISTRY METHOD 07/05/2025 1:03 AM [facility] eGFR 79 >=60 mL/min/1. 73m2 LAB CHEMISTRY METHOD 07/05/2025 1:03 AM [facility] Comment:Calculation based on the Chronic Kidney Disease Epidemiology Collaboration (CKD-EPI) equation refit without adjustment for race. BUN/Creatinine Ratio 27.9 LAB CHEMISTRY METHOD 07/05/2025 1:03 AM [facility] Calcium 9.2 8.5 - 10.5 mg/dL LAB CHEMISTRY METHOD 07/05/2025 1:03 AM [facility] AST (SGOT) 28 10 - 42 unit/L LAB CHEMISTRY METHOD 07/05/2025 1:03 AM [facility] ALT (SGPT) 41 10 - 60 unit/L LAB CHEMISTRY METHOD 07/05/2025 1:03 AM [facility] Alkaline Phosphatase 135(H) 42 - 121 unit/L LAB CHEMISTRY METHOD 07/05/2025 1:03 AM [facility] Total Protein 7.4 6.0 - 8.0 g/dL LAB CHEMISTRY METHOD 07/05/2025 1:03 AM EDT [facility] Albumin 3.8 3.2 - 5.0 g/dL LAB CHEMISTRY METHOD 07/05/2025 1:03 AM EDT [facility] Total Bilirubin 0.4 0.0 - 1.4 mg/dL LAB CHEMISTRY METHOD 07/05/2025 1:03 AM EDT [facility] Blood Venous blood specimen / Unknown Venipuncture / Unknown 07/05/2025 12:30 AM EDT 07/05/2025 12:35 AM EDT us Hannah SAHU LAB BLOOD ORDERABLES Fin al Result [facility] [address] [place] [address], from Last 3 Months Insurance MEDICAID - [place] Advance Directives Documents on File Type Date Recorded 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 Health Care Decision (hx) 12/16/2019 ADVANCE DIRECTIVE Health Care Decision (hx) 12/16/2019 ADVANCE DIRECTIVE Health Care Decision (hx) 12/16/2019 ADVANCE DIRECTIVE Health Care Decision (hx) 12/16/2019 ADVANCE DIRECTIVE Health Care Decision (hx) 12/16/2019 ADVANCE DIRECTIVE Health Care Decision (hx) 12/16/2019 ADVANCE DIRECTIVE Health Care Decision (hx) 12/16/2019 ADVANCE DIRECTIVE Health Care Decision (hx) 12/16/2019 ADVANCE DIRECTIVE Health Care Decision (hx) 12/16/2019 ADVANCE DIRECTIVE Health Care Decision (hx) 12/16/2019 ADVANCE DIRECTIVE Health Care Decision (hx) 12/16/2019 ADVANCE DIRECTIVE Health Care Decision (hx) 12/16/2019 ADVANCE DIRECTIVE Health Care Decision (hx) 12/16/2019 ADVANCE DIRECTIVE Health Care Decision (hx) 12/16/2019 ADVANCE DIRECTIVE Health Care Decision (hx) 12/16/2019 ADVANCE DIRECTIVE Health Care Decision (hx) 12/16/2019 ADVANCE DIRECTIVE Health Care Decision (hx) 12/16/2019 ADVANCE DIRECTIVE Health Care Decision (hx) 12/16/2019 ADVANCE DIRECTIVE Health Care Decision (hx) 12/16/2019 ADVANCE DIRECTIVE Health Care Decision (hx) 12/16/2019 ADVANCE DIRECTIVE Health Care Decision (hx) 12/16/2019 Anabel Wood ADVANCE DIR ECTIVE Health Care Decision (hx) 12/14/2019 ADVANCE DIRECTIVE Health Care Decision (hx) 12/14/2019 ADVANCE DIRECTIVE Health Care Decision (hx) 12/14/2019 ADVANCE DIRECTIVE Health Care Decision (hx) 12/14/2019 ADVANCE DIRECTIVE Health Care Decision (hx) 12/14/2019 ADVANCE DIRECTIVE Health Care Decision (hx) 12/14/2019 ADVANCE DIRECTIVE Health Care Decision (hx) 12/14/2019 ADVANCE DIRECTIVE Health Care Decision (hx) 12/14/2019 ADVANCE DIRECTIVE Health Care Decision (hx) 12/14/2019 ADVANCE DIRECTIVE Health Care Decision (hx) 12/14/2019 ADVANCE DIRECTIVE Health Care Decision (hx) 12/14/2019 ADVANCE DIRECTIVE Health Care Decision (hx) 12/14/2019 ADVANCE DIRECTIVE Health Care Decision (hx) 12/14/2019 ADVANCE DIRECTIVE Health Care Decision (hx) 12/14/2019 ADVANCE DIRECTIVE Health Care Decision (hx) 12/14/2019 ADVANCE DIRECTIVE Health Care Decision (hx) 12/14/2019 ADVANCE DIRECTIVE Health Care Decision (hx) 12/14/2019 ADVANCE DIRECTIVE Health Care Decision (hx) 12/14/2019 ADVANCE DIRECTIVE Health Care Decision (hx) 12/14/2019 ADVANCE DIRECTIVE Health Care Decision (hx) 12/14/2019 ADVANCE DIRECTIVE Health Care Decision (hx) 12/14/2019 ADVANCE DIRECTIVE * Full Code - Default (Latest Code Status on File) Date Activated Date Inactivated Comments 07/05/2025 5:18 AM 07/07/2025 2:21 PM This is orde r is used when code status has not been discussed with the patient, or code status is otherwise unknown/unconfirmed To update the patient's code status, place a code status order. Do not modify or discontinue any currently active code status orders. Healthcare Agents on File Name Relationship Healthcare Agent [facility] Communication Anabel Dmitriy Daughter First Alternate Health Care Agent Ty Wood Spouse Second Alternate Health Care Agent
--- OUTSIDE RECORDS SUMMARY | 2025-07-21 11:45 | XMS_ITS | Encounter Summary ---
Author Organization [employer] Address [address] [place] [address] 7t [place] [address] Care Team Providers Care Aviation All Source Intelligence Name Role Phone Name, Charbel CARRILLO Primary Care Provider [phone] Мария Gudino PharmD Unavailable [phone] Robin Muniz RN Unavailable [phone] Leann Edgar Unavailable Reason for Visit * Reason Comments Med Refill Encounter Details Date Type Department Care Team (Late st Contact Info) Description 02/20/2024 Refill [facility] [address] [place] [address] Name, MD Charbel [address] [place], [place] [phone] Social History Tobacco Use Types Packs/Day Years [...] Info) Description 09/02/2025 11:00 AM EDT Telemedicine [facility] [address] [place] [address] Roz Le RN documented as of this encounter Goals Goal Patient Goal Type Associated Problems Recent Progress Patient-Stated? Author Record your blood pressure once per day Blood Pressure No Puia, Мария, PharmD Blood Pressure < 140/90 Blood Pressure 130/90( 025 3:47 PM EDT) No Puia, Мария, PharmD documented as of this encounter Visit Diagnoses Not on filedocumented in this encounter Additional Health Concerns Assessment Noted Time PHQ-9 Depression Total Score: 0 10/23/20 22 3:25 PM EST documented as of this encounter Care Teams Aviation All Source Intelligence Relationship Specialty Start Date End Date Name, MD Charbel [address] [place] [address] PCP - General Family Medicine 02/26/16 PuiaRichardМария, PharmD [address] [place] [address] Pharmacist Internal Medicine 04/29/23 07/11/25 Robin Muniz RN [address] [place] [address] Registered Nurse Family Medicine 04/22/25 Leann Edgar 04/22/25 [facility] 04/28/25 documented as of this encounter
--- OUTSIDE RECORDS SUMMARY | 2025-07-21 11:45 | XMS_ITS ---
Author Organization [employer] Address [address] [place] [address] Care Team Providers Care Woods Boss Name Role Phone Name, Charbel CARRILLO Primary Care Provider [phone] Robin Muniz RN Unavailable [phone] Leann Edgar Unavailable CHW Complex Status:Outreach In Progress (Enrolling) Start date:04/22/2025 Enrollment reason:ADT Feed Overview ADT- Pt admitted to [facility] on 04/21/25. Please outreach for enrollment. Case Team Name Relationship Phone Leann Edgar(Responsible Staff) [phone] Continued Care and Services Coordination
--- OUTSIDE RECORDS SUMMARY | 2025-07-21 11:45 | XMS_ITS | Encounter Summary ---
Author Organization [employer] Address [address] [place] [address] 7t [place] [address] Care Team Providers Care Insole Tape Stitcher Uco Name Role Phone Name, Charbel CARRILLO Primary Care Provider [phone] Мария Gudino PharmD Unavailable [phone] Robin Muniz RN Unavailable [phone] Leann Edgar Unavailable Reason for Visit * Reason Comments Med Refill Encounter Details Date Type Department Care Team (Late st Contact Info) Description 04/16/2025 Refill [facility] [address] [place], [place] [phone] Name, MD Charbel [address] [place], [place] [phone] Social History Tobacco Use Types Packs/Day Years [...] Info) Description 09/02/2025 11:00 AM EDT Telemedicine [address] [address] Roz Le RN documented as of this encounter Goals Goal Patient Goal Type Associated Problems Recent Progress Patient-Stated? Author Record your blood pressure once per day Blood Pressure No Puia, Мария, PharmD Blood Pressure < 140/90 Blood Pressure 130/90(2024 3:47 PM EDT) No Puia, Мария, PharmD Patient [...] documented as of this encounter Care Teams Insole Tape Stitcher Uco Relationship Specialty Start Date End Date Name, MD Charbel [address] [place] [address] PCP - General Family Medicine 02/26/16 Мария Gudino, Aleisha [address] [place] [address] Pharmacist Internal Medicine 04/29/23 07/11/25 Robin Muniz RN [address] [place] [address] Registered Nurse Family Medicine 04/22/25 Leann Edgar 04/22/25 [facility] 04/28/25 documented as of this encounter
--- OUTSIDE RECORDS SUMMARY | 2025-07-21 11:45 | XMS_ITS | Encounter Summary ---
Author Organization [employer] Address [address] [place] [address] 7 [place] [address] Care Team Providers Care Harvest Worker Name Role Phone Name, Charbel CARRILLO Primary Care Provider [phone] Мария Gudino PharmD Unavailable [phone] Robin Muniz RN Unavailable Leann Edgar Unavailable Reason for Visit * Reason Onset Date Comments Prior Authorization 01/06/2024 Encounter Details Date Type Department Care Team (Late st Contact Info) Description 01/06/2024 Telephone [facility] [address] [place] [address] Name, MD Charbel [address] [place], [place] [phone] Prior Authorization Social History Tobacco Use Types [...] 01/13/2024 10:48 AM EST Tc from [facility] calling in regards to the message below states needs PA so they can schedule a appt with the patient * Telephone Encounter - Lucio Edgar - 01/06/2024 10:44 AM EST Tc bernabe Lagos working with [facility] stating pt needs prior authorization for Ct Scan If any questions you can contact [facility] [phone] documented in this encounter Plan of Treatment Upcoming Encounters Date Type Department Care Team (Late st Contact Info) Description 09/02/2025 11:00 AM EDT Telemedicine [facility] [address] [place] [address] Roz Le, ARLINE documented as of this [...] documented as of this encounter Care Teams Harvest Worker Relationship Specialty Start Date End Date Name, MD Charbel [address] [place] [address] PCP - General Family Medicine 02/26/16 Мария Gudino PharmD [address] [place] [address] Pharmacist Internal Medicine 04/29/23 07/11/25 Robin Muniz RN [address] [place] [address] Registered Nurse Family Medicine 04/22/25 [facility] documented as of this encounter
--- OUTSIDE RECORDS SUMMARY | 2025-07-21 11:45 | XMS_ITS | Encounter Summary ---
Author Organization [employer] Address [address] [place] [address] 7t [place] [address] Care Team Providers Care Brazing Furnace Feeder Name Role Phone Name, Charbel CARRILLO Primary Care Provider [phone] Мария Gudino PharmD Unavailable [phone] Robin Muniz RN Unavailable [phone] Leann Edgar Unavailable Reason for Visit * Reason Onset Date Comments Nurse Triage 03/03/2025 Encounter Details Date Type Department Care Team (Late st Contact Info) Description 03/03/2025 Telephone [facility] [address] [place], [place] [phone] Name, MD Charbel [address] [place], [place] [phone] Nurse Triage Social History Tobacco Use Types [...] PM EDT Tc from pt returning call. 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 . Pt provided wic hours pt verbalized understanding and had no further questions. * Telephone Encounter - Jackie Tucker RN - 03/03/2025 10:06 AM EDT Tc to pt reports their neck is swollen and they cannot move it. Pt advised to come into wic to be evaluated immediately. Pt reports they notice neck pain on Cynthia that has been persistent. Pt reports this [...] their conditions. 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 . Pt provided wic hours, ED precautionsreviewed and message forwarded to PCP as an FYI. * Telephone Encounter - Ann-Marie Carroll RN - 03/03/2025 8:53 AM EDT Called pt. No answer. Pt called RE: Requesting MRI of neck due to [facility] are telling pt. She [...] for a new MRI order because visited [facility] and they states that it is arthritis in the neck, which the PT disagrees with. Pt says that the pain and discomfort in the area are not normal. documented in this encounter Plan of Treatment Upcoming Encounters Date Type Department Care Team (Late st Contact Info) Description 09/02/2025 11:00 AM EDT Telemedicine [facility] [address] [place] [address] Roz Le RN documented as of this [...] documented as of this encounter Care Teams Brazing Furnace Feeder Relationship Specialty Start Date End Date Name, MD Charbel [address] [place] [address] PCP - General Family Medicine 02/26/16 Мария Gudino, PharmD [address] [place] [address] Pharmacist Internal Medicine 04/29/23 07/11/25 Robin Muniz, ARLINE [address] [place] [address] Registered Nurse Family Medicine 04/22/25 Leann Edgar 04[facility]22[facility]25 [facility] documented as of this encounter
--- OUTSIDE RECORDS SUMMARY | 2025-07-21 11:45 | XMS_ITS | Encounter Summary ---
Author Organization [employer] Address [address] [place] [address] 7 [place] [address] Care Team Providers Care Office Services Assistant Name Role Phone Name, Charbel CARRILLO Primary Care Provider [phone] Мария Gudino PharmD Unavailable [phone] Robin Muniz RN Unavailable [phone] Leann Edgar Unavailable Encounter Details Date Type Department Care Team (Late st Contact Info) Description 05/25/2024 Orders Only [facility] [address] [place] [address] Provider, MD Fantasma Social History Tobacco Use [...] Info) Description 09/02/2025 11:00 AM EDT Telemedicine [facility] MEDICINE [address] [place] [address] Roz Le RN documented as of this [...] documented as of this encounter Care Teams Office Services Assistant Relationship Specialty Start Date End Date Name, MD Charbel [address] [place] [address] PCP - General Family Medicine 02/26/16 Мария Gudino PharmD [address] [place] [address] Pharmacist Internal Medicine 04/29/23 07/11/25 Robin Muniz RN [address] [place] [address] Registered Nurse Family Medicine 04/22/25 [facility]ann [facility] documented as of this encounter
--- OUTSIDE RECORDS SUMMARY | 2025-07-21 11:45 | XMS_ITS | Encounter Summary ---
Author Organization [employer] Address [address] [place] [address] 7t [place] [address] Care Team Providers Care Insulator Tester Name Role Phone Name, Charbel CARRILLO Primary Care Provider [phone] Мария Gudino PharmD Unavailable Robin Muniz RN Unavailable [phone] Leann Edgar Unavailable Encounter Details Date Type Department Care Team (Late st Contact Info) Description 04/21/2023 Abstract [facility] [address] [place], [place] [phone] Name, MD Charbel [address] [place], [place] [phone] Social History Tobacco Use Types Packs/Day Years [...] Info) Description 09/02/2025 11:00 AM EDT Telemedicine [facility] [address] [place] [address] Roz Le, RN documented as of this encounter Visit Diagnoses Not on filedocumented in this encounter Additional Health Concerns Assessment Noted Time PHQ-9 Depression Total Score: 0 10/23/20 22 3:25 PM EST documented as of this encounter Care Teams Insulator Tester Relationship Specialty Start Date End Date Name, MD Charbel [address] [place] [address] PCP - General Family Medicine 02/26/16 Мария Gudino PharmD [address] [place] [address] Pharmacist Internal Medicine 04/29/23 07/11/25 Robin Muniz, ARLINE [address] [place] [address] Registered Nurse Family Medicine 04/22/25 Leann Edgar 04[facility]22[facility]25 [facility] documented as of this encounter
--- OUTSIDE RECORDS SUMMARY | 2025-07-21 11:45 | XMS_ITS | Encounter Summary ---
Author Organization [employer] Address [address] [facility] 7t [place] [address] Care Team Providers Care Foreign Service Teacher Name Role Phone Name, Charbel CARRILLO Primary Care Provider [phone] Мария Gudino PharmD Unavailable [phone] Robin Muniz RN Unavailable [phone] Leann Edgar Unavailable Reason for Visit * Reason Comments Med Refill Encounter Details Date Type Department Care Team (Late st Contact Info) Description 01/07/2025 Refill [facility] [address] [place] [address] Name, MD Charbel [address] [place] [address] Vomiting and diarrhea Social History Tobacco Use [...] Info) Description 09/02/2025 11:00 AM EDT Telemedicine [facility] MEDICINE [address] [place] [address] Roz Le, ARLINE documented as of this [...] documented as of this encounter Care Teams Foreign Service Teacher Relationship Specialty Start Date End Date Name, MD Charbel [address] [place] [address] PCP - General Family Medicine 02/26/16 Мария Gudino PharmD [address] [place] [address] Pharmacist Internal Medicine 04/29/23 07/11/25 Robin Muniz RN [address] [place] [address] Registered Nurse Family Medicine 04/22/25 Leann Edgar 04/22/25 [facility] 04/28/25 documented as of this encounter
--- OUTSIDE RECORDS SUMMARY | 2025-07-21 11:45 | XMS_ITS | Encounter Summary ---
Author Organization [employer] Address [address] [place] [address] 7t [place] [address] Care Team Providers Care Shoe Sticks Repairer Name Role Phone Name, Charbel CARRILLO Primary Care Provider [phone] Мария Gudino PharmD Unavailable [phone] Robin Muniz RN Unavailable [phone] Leann Edgar Unavailable Reason for Visit * Reason Comments Med Refill Encounter Details Date Type Department Care Team (Late st Contact Info) Description 09/16/2023 Refill [facility]INE [address] [place], [place] [phone] Name, MD Charbel [address] [place], [place] [phone] Social History Tobacco Use Types Packs/Day Years [...] Info) Description 09/02/2025 11:00 AM EDT Telemedicine [facility]INE [address] [place] [address] Roz Le RN documented as of this [...] documented as of this encounter Care Teams Shoe Sticks Repairer Relationship Specialty Start Date End Date Name, MD Charbel [address] [place] [address] PCP - General Family Medicine 02/26/16 PuiaRichardМария, PharmD [address] [place] [address] Pharmacist Internal Medicine 04/29/23 07/11/25 Robin Muniz RN [address] [place] [address] Registered Nurse Family Medicine 04/22/25 Leann Edgar 04/22/25 [facility] 04/28/25 documented as of this encounter
--- OUTSIDE RECORDS SUMMARY | 2025-07-21 11:45 | XMS_ITS | Encounter Summary ---
Author Organization [employer] Address [address] [place] [address] 7t [place] [address] Care Team Providers Care Case Management Coordinator Name Role Phone Name, Charbel CARRILLO Primary Care Provider [phone] Мария Gudino PharmD Unavailable [phone] Robin Muniz RN Unavailable Leann Edgar Unavailable Reason for Visit * Reason Comments Med Refill Encounter Details Date Type Department Care Team (Late st Contact Info) Description 05/29/2024 Refill [facility] MEDICINE [address] [place], [place] [phone] Name, MD Charbel [address] [place], [place] [phone] Social History Tobacco Use Types Packs/Day Years [...] Info) Description 09/02/2025 11:00 AM EDT Telemedicine [facility] MEDICINE [address] [place] [address] Roz Le RN documented as of this [...] documented as of this encounter Care Teams Case Management Coordinator Relationship Specialty Start Date End Date Name, MD Charbel [address] [place] [address] PCP - General Family Medicine 02/26/16 Мария Gudino PharmD 230 [place] [address] Pharmacist Internal Medicine 04/29/23 07/11/25 Robin Muniz, ARLINE [address] [place] [address] Registered Nurse Family Medicine 04/22/25 Leann Edgar 04/22/25 [facility] 04/28/25 documented as of this encounter
--- OUTSIDE RECORDS SUMMARY | 2025-07-21 11:45 | XMS_ITS ---
Author Organization [employer] Address [address] [place] [address] Care Team Providers Care Geology Teacher Name Role Phone Name, Charbel CARRILLO Primary Care Provider [phone] Robin Muniz RN Unavailable [phone] Leann Edgar Unavailable CM Complex Status:Outreach In Progress (Enrolling) Start date:04/22/2025 Enrollment reason:ADT Feed Overview ADT- Pt admitted to [facility] on 04/21/25 Case Team Name Relationship Phone Robin Muniz RN(Responsible Staff) Registered Nurse [phone] Continued Care and Services Coordination
--- OUTSIDE RECORDS SUMMARY | 2025-07-21 11:46 | XMS_ITS | Encounter Summary ---
Author Organization [employer] Address [address] [place] [address] 7t [place] [address] Care Team Providers Care Yacht Rigger Name Role Phone Name, Charbel CARRILLO Primary Care Provider [phone] Robin Muniz RN Unavailable [phone] Leann Edgar Unavailable Reason for Visit * Reason Onset Date Comments Med Refill 07/20/2025 Encounter Details Date Type Department Care Team (Late st Contact Info) Description 07/20/2025 Telephone [facility] MEDICINE 230 [place], [place] [phone] Name, MD Charbel 230 [place], [place] [phone] Med Refill Social History Tobacco Use Types Packs/Day Years [...] encounter Miscellaneous Notes * Telephone Encounter - Lizet Maradiaga LPN - 07/20/2025 11:34 AM EDT Medication was sent to [facility] #[id number] on 02/03/25 with 11 refills. DIETARY AIDE checked on 07/20/25 patient has refills left. * Telephone Encounter - Stephanie Wood - 07/20/2025 11:23 AM EDT TC from pt requesting medication refill. Medications needing refill : - gabapentin (Neurontin) 800 MG tablet To be sent to: - [facility] #[id number] - [place] [facility] documented in this encounter Plan of Treatment Upcoming Encounters Date Type Department Care Team (Late st Contact Info) Description 09/02/2025 11:00 AM EDT Telemedicine [facility] MEDICINE 230 [place] [address] Roz Le, ARLINE documented as of this [...] documented as of this encounter Care Teams Yacht Rigger Relationship Specialty Start Date End Date Name, MD Charbel 230 [place] [address] PCP - General Family Medicine 02/26/16 Robin Muniz, ARLINE [address] [place] [address] Registered Nurse Family Medicine 04/22/25 Leann Edgar 04/22/25 [facility] 04/28/25 documented as of this encounter
--- OUTSIDE RECORDS SUMMARY | 2025-07-21 11:46 | XMS_ITS | Encounter Summary ---
Author Organization [employer] Address [address] [place] [address] 7t [place] [address] Care Team Providers Care Pediatric Clinical Nurse Specialist Name Role Phone Name, Charbel CARRILLO Primary Care Provider [phone] Мария Gudino PharmD Unavailable [phone] Robin Muniz RN Unavailable Leann Edgar Unavailable Reason for Visit * Reason Onset Date Comments Hospital Follow-up 09/29/2024 Encounter Details Date Type Department Care Team (Late st Contact Info) Description 09/29/2024 Telephone [facility] MEDICINE 230 [place] [address] Name, MD Charbel 230 [place], [place] [phone] Hospital Follow-up Social History Tobacco Use Types [...] from pt requesting a HDF appt. Hospital: [facility] Date of admission: 08/15/24 Discharge date: Diagnosed: stroke and eye symptoms , eye injection *Send message to [place] Clinical Care Coordinators documented in this encounter Plan of Treatment Upcoming Encounters Date Type Department Care Team (Late st Contact Info) Description 09/02/2025 11:00 AM EDT Telemedicine [facility] MEDICINE [address] [place] [address] Roz Le, RN documented as of this [...] documented as of this encounter Care Teams Pediatric Clinical Nurse Specialist Relationship Specialty Start Date End Date Name, MD Charbel 230 [place] [address] PCP - General Family Medicine 02/26/16 Мария Gudino, PharmD [address] [place] [address] Pharmacist Internal Medicine 04/29/23 07/11/25 Robin Muniz RN [address] [place] [address] Registered Nurse Family Medicine 04/22/25 Leann Edgar 04/22/25 [facility] 04/28/25 documented as of this encounter
--- OUTSIDE RECORDS SUMMARY | 2025-07-21 11:46 | XMS_ITS | Encounter Summary ---
Author Organization [employer] Address [address] [place] [address] 7t [place] [address] Care Team Providers Care Rn Transitional Care Name Role Phone Name, Charbel CARRILLO Primary Care Provider [phone] Мария Gudino PharmD Unavailable [phone] Robin Muniz RN Unavailable [phone] Leann Edgar Unavailable Reason for Visit * Reason Onset Date Comments Hospital Follow-up 09/15/2024 Encounter Details Date Type Department Care Team (Late st Contact Info) Description 09/15/2024 Telephone [facility] MEDICINE 230 [place] [address] Name, MD Charbel 230 [place], [place] [phone] Hospital Follow-up Social History Tobacco Use Types [...] from pt requesting a HDF appt. Hospital: [facility] Date of admission: 09/14/2024 Discharge date: 09/15/2024 Diagnosed: Visual changes , Bipolar disorder documented in this encounter Plan of Treatment Upcoming Encounters Date Type Department Care Team (Late st Contact Info) Description 09/02/2025 11:00 AM EDT Telemedicine [facility] MEDICINE [address] [place] [address] Roz Le, RN documented as of this [...] as of this encounter Care Teams Rn Transitional Care Relationship Specialty Start Date End Date Name, MD Charbel [address] [place] [address] PCP - General Family Medicine 02/26/16 Мария Gudino, PharmD [address] [place] [address] Pharmacist Internal Medicine 04/29/23 07/11/25 Robin Muniz RN [address] [place] [address] Registered Nurse Family Medicine 04/22/25 Leann Edgar 04/22/25 [facility] 04/28/25 documented as of this encounter
--- OUTSIDE RECORDS SUMMARY | 2025-07-21 11:46 | XMS_ITS | Clinical Summary ---
Author Organization [facility] Address [address] [place] [address] Phone Care Team Providers Care Rectifying Attendant Name Role Phone Unavailable Primary Care Provider [...] Used to be seen for PM at [facility], got injections, not better, ref to [...] on 09 January 2016 14:38 Encounter info: [id number], [place] [facility], 01/08/2016 - 01/15/2016 * Final Report * Reason For Exam rt shoulder pain RCT;rt shoulder pain RCT RESULT: MRI Joint Ext Upper W/O Contrast Right [facility] VISIT NUMBER :[id number] Patient Name : Sade Izaguirre Date of : 1970 Date of Exam : 01/08/2016 Referring Physician : GINA CROFT [address], Attn: [place] [address] Exam : MR - SHOULDER (C-) CPT 80373 - RIGHT Room Description : [facility] [...] 02/05/2023 08/21/2023 Overview (08/21/2023): Severe, follows at [facility] Was told too young for TKR [...] 08/01/2021 08/01/2021 Overview (08/01/2021): MRI done at [facility] 11.15.14 Shoulder pain 08/01/2021 08/01/2021 Overview (08/01/2021): Used to be seen for PM at [facility], got injections, not better, ref to [...] on 09 January 2016 14:38 Encounter info: [id number], [place] [facility], 01/08/2016 - 01/15/2016 * Final Report * Reason For Exam rt shoulder pain RCT;rt shoulder pain RCT RESULT: MRI Joint Ext Upper W/O Contrast Right [facility] VISIT NUMBER :[id number] Patient Name : Sade Izaguirre Date of : 1970 Date of Exam : 01/08/2016 Referring Physician : GINA CROFT [address], Attn: [place] [address] Exam : MR - SHOULDER (C-) CPT 61674 - RIGHT Room Description : [facility] 2 1.5 Technique : Ax PD Fsat, [...] Overview (08/17/2024): BILATERAL MAMMOGRAM SCREENING DONE AT [facility] WELLNESS RESULTS WAS SENT [...] Discontinued 04/01/2023, 05/30/2009 Insurance Medicaid [place] Medicaid [place]
--- OUTSIDE RECORDS SUMMARY | 2025-07-21 11:46 | XMS_ITS | Encounter Summary ---
Author Organization [email or web address] Address [address] [place] [address] 7 [place] [address] Care Team Providers Care Storage Brine Worker Name Role Phone Name, Charbel CARRILLO Primary Care Provider [phone] Мария Gudino PharmD Unavailable [phone] Robin Muniz RN Unavailable [phone] Leann Edgar Unavailable Reason for Visit * Reason Onset Date Comments Appointment Request 09/22/2023 Encounter Details Date Type Department Care Team (Late st Contact Info) Description 09/22/2023 Telephone [facility] MEDICINE 230 [place] [address] Name, MD Charbel 230 [place], [place] [phone] Appointment Request Social History Tobacco Use Types [...] @ 2:15 pm (NOTES : Claim # [id number]- [place] [facility]VA -09/05/23- [facility] to [facility] - Xray negative but pt. wants MRI ) Pt states she has same day appt with Her Orthopedic surgeon and is requesting to see if provider has anything earlier or for later time. Please contact pt at [phone] documented in this encounter Plan of Treatment Upcoming Encounters Date Type Department Care Team (Late st Contact Info) Description 09/02/2025 11:00 AM EDT Telemedicine [facility] MEDICINE [address] [place] [address] [phone] Roz Le, ARLINE documented as of this encounter Goals Goal Patient Goal Type Associated Problems Recent Progress Patient-Stated? Author Record your blood pressure once per day Blood Pressure No Мария Gudino, PharmD Blood Pressure < 140/90 Blood Pressure 130/90( 025 3:47 PM EDT) No Мария Gudino PharmD documented as of this encounter Visit Diagnoses Not on filedocumented in this encounter Additional Health Concerns Assessment Noted Time PHQ-9 Depression Total Score: 0 10/23/20 22 3:25 PM EST documented as of this encounter Care Teams Storage Brine Worker Relationship Specialty Start Date End Date Name, MD Charbel [address] [place] [address] PCP - General Family Medicine 02/26/16 Мария Gudino PharmD 230 [place] [address] Pharmacist Internal Medicine 04/29/23 07/11/25 Robin Muniz, ARLINE [address] [place] [address] Registered Nurse Family Medicine 04/22/25 Leann Edgar 04/22/25 [facility] 04/28/25 documented as of this encounter
--- OUTSIDE RECORDS SUMMARY | 2025-07-21 11:46 | XMS_ITS | Encounter Summary ---
Author Organization [employer] Address [address] [place] [address] 7t [place] [address] Care Team Providers Care Tree Loader Meat Name Role Phone Name, Charbel CARRILLO Primary Care Provider [phone] Robin Muniz RN Unavailable [phone] Leann Edgar Unavailable Reason for Visit * Reason Onset Date Comments Durable Medical Equipment 07/20/2025 Encounter Details Date Type Department Care Team (Late st Contact Info) Description 07/20/2025 Telephone [facility] MEDICINE 230 [place], [place] [phone] Name, MD Charbel [address] [place], [place] [phone] Durable Medical Equipment Social History Tobacco Use Types Packs/Day Years [...] encounter Miscellaneous Notes * Telephone Encounter - Stephanie Wood - 07/20/2025 11:25 AM EDT TC from pt requesting status on medical supply form that was sent by [employer]. Requesting call back Contact pt at [phone] documented in this encounter Plan of Treatment Upcoming Encounters Date Type Department Care Team (Late st Contact Info) Description 09/02/2025 11:00 AM EDT Telemedicine [facility] MEDICINE [address] [place] [address] Roz Le, ARLINE documented as of this encounter Goals Goal Patient Goal Type Associated Problems Recent Progress Patient-Stated? Author Record your blood pressure once per day Blood Pressure No Мария Gudino, PharmD Blood Pressure < 140/90 Blood Pressure 130/90(2024 3:47 PM EDT) No Мария Gudino, PharmD Patient [...] documented as of this encounter Care Teams Tree Loader Meat Relationship Specialty Start Date End Date Name, MD Charbel [address] [place] [address] PCP - General Family Medicine 02/26/16 Robin Muniz, ARLINE [address] [place] [address] Registered Nurse Family Medicine 04/22/25 Leann Edgar [facility]22[facility] documented as of this encounter
--- OUTSIDE RECORDS SUMMARY | 2025-07-21 11:46 | XMS_ITS | Encounter Summary ---
Author Organization [employer] Address [address] [place] [address] 7 [place] [address] Care Team Providers Care Medical Assisting Program Director Name Role Phone Name, Charbel CARRILLO Primary Care Provider [phone] Robin Muniz RN Unavailable [phone] Leann Edgar Unavailable Reason for Visit * Reason Onset Date Comments Med Refill 07/20/2025 Clarify outside oxycodone RX picked up 07/18/25 Encounter Details Date Type Department Care Team (Late st Contact Info) Description 07/20/2025 Refill [facility] MEDICINE 230 [place] [address] Name, MD Charbel [address] [place] [address] Chronic pain syndrome Social History Tobacco Use [...] the past 12 months, has t he [employer], gas, oil or water company threatened to [...] Miscellaneous Notes * Telephone Encounter - Roz Le RN - 07/20/2025 11:57 AM EDT 07/18/25 Patient picked up prescription for Oxycodone 5mg #12 for 3 days from [facility], [address] [place] [address], [facility] TC to patient to enquire about above. Patient stated that RX was from her surgeon when she got out of the hospital. She said she has been taking the above prescription from the surgeon - 10mg 4 X a day, not 5mg and she only has 1 left. .Reminded patient she should not be getting narcotics from outside sources while she is receiving from PCP. Explained to patient that since she picked up the RX on07/18/25 and it was written for 3 days, her refill wont be due until 07/21/25. Patient stated that PCP was supposed to increase her frequency of her pain medication. Reviewed most recent PCP visit note from 05/10/25, where PCP had provided a 7 day increase in frequency of her percocet. Reminded patient it was only for 7 days though. Patient stating her pain is still an issue. Explained to patient again, as of right now her refill wouldn't be due until 07/21/25, but I would send this message to her PCP. * Telephone Encounter - Stephanie Wood - 07/20/2025 11:23 AM EDT TC from pt requesting medication refill. Medications needing refill : - oxyCODONE (Roxicodone) 10 MG immediate release tablet To be sent to: - [facility][id number] [place], [place] - [facility] documented in this encounter Plan of Treatment Upcoming Encounters Date Type Department Care Team (Late st Contact Info) Description 09/02/2025 11:00 AM EDT Telemedicine [facility] MEDICINE [address] [place] [address] Roz Le, ARLINE documented as of [...] as of this encounter Care Teams Medical Assisting Program Director Relationship Specialty Start Date End Date Name, MD Charbel [address] [place] [address] PCP - General Family Medicine 02/26/16 Robin Muniz RN [address] [place] [address] Registered Nurse Family Medicine 04/22/25 Leann Edgar 04/22/25 [facility] 04/28/25 documented as of this encounter
--- OUTSIDE RECORDS SUMMARY | 2025-07-21 11:46 | XMS_ITS | Clinical Summary ---
Author Organization [facility] Address [address] [place] [address] Phone Care Team Providers Care Pictures Editor Name Role Phone Name, Charbel CARRILLO Primary Care Provider [phone] Social History Tobacco Use Types Packs/Day Years [...] FOBT 2014 SIGMOIDOSCOPY 2014 VIRTUAL COLONOSCOPY 2014 INFLUENZA VACCINE (#1) 2025 , 08/06/2022, 10/23/2021, Additional history exists COVID-19 VACCINE ( season) 2025 09/24/2023, 08/26/2022, 03/14/2022, Additional history exists Adult [...] ACO C3 ACO C3 ACO Care Teams Pictures Editor Relationship Specialty Start Date End Date Name, MD Charbel [address] [place] [address] [phone] PCP - General Geriatric Psychiatry 08/13/18 Additional Source Comments The information contained in this document represents components of the legal health record. It is not the complete legal health record.[facility]
--- OUTSIDE RECORDS SUMMARY | 2025-07-21 11:46 | XMS_ITS | Encounter Summary ---
Author Organization [email or web address] Address [address] [facility] 7t [place] [address] Care Team Providers Care Er Nurse Name Role Phone Name, Charbel CARRILLO Primary Care Provider [phone] Мария Gudino PharmD Unavailable [phone] Robin Muniz RN Unavailable [phone] Leann Edgar Unavailable Encounter Details Date Type Department Care Team (Late st Contact Info) Description 09/24/2023 Abstract [facility] MEDICINE 230 [place], [place] [phone] Name, MD Charbel 230 [place], [place] [phone] Social History Tobacco Use Types Packs/Day Years [...] Info) Description 09/02/2025 11:00 AM EDT Telemedicine [facility] MEDICINE [address] [place] [address] Roz Le RN documented as of this encounter Goals Goal Patient Goal Type Associated Problems Recent Progress Patient-Stated? Author Record your blood pressure once per day Blood Pressure No PuМария jovel, PharmD Blood Pressure < 140/90 Blood Pressure 130/90( 025 3:47 PM EDT) No YingiaRichardМария, PharmD documented as of this encounter Visit Diagnoses Not on filedocumented in this encounter Additional Health Concerns Assessment Noted Time PHQ-9 Depression Total Score: 0 10/23/20 22 3:25 PM EST documented as of this encounter Care Teams Er Nurse Relationship Specialty Start Date End Date Name, MD Charbel [address] [place] [address] PCP - General Family Medicine 02/26/16 Мария Gudino, PharmD [address] [place] [address] Pharmacist Internal Medicine 04/29/23 07/11/25 Robin Muniz RN [address] [place] [address] Registered Nurse Family Medicine 04/22/25 Leann Edgar 04/22/25 [facility] 04/28/25 documented as of this encounter
--- OUTSIDE RECORDS SUMMARY | 2025-07-21 11:46 | XMS_ITS | Encounter Summary ---
Author Organization [employer] Address [address] [place] [address] 7 [place] [address] Care Team Providers Care Museum Educator Name Role Phone Name, Charbel CARRILLO Primary Care Provider [phone] Мария Gudino PharmD Unavailable [phone] Robin Muniz RN Unavailable [phone] Leann Edgar Unavailable Reason for Visit * Reason Onset Date Comments ER Follow-up 08/20/2023 Encounter Details Date Type Department Care Team (Late st Contact Info) Description 08/20/[address] [facility] MEDICINE 230 [place], [place] [phone] Name, MD Charbel 230 [place], [place] [phone] ER Follow-up Social History Tobacco Use Types [...] to report ED visit on 08/19/23 at [facility]. Seen for fall. Patient advised will forward to team nurse for follow up. documented in this encounter Plan of Treatment Upcoming Encounters Date Type Department Care Team (Late st Contact Info) Description 09/02/2025 11:00 AM EDT Telemedicine [facility] MEDICINE [address] [place] [address] Roz Le RN documented as of this [...] documented as of this encounter Care Teams Museum Educator Relationship Specialty Start Date End Date Name, MD Charbel [address] [place] [address] PCP - General Family Medicine 02/26/16 Puia, Мария, PharmD [address] [place] [address] Pharmacist Internal Medicine 04/29/23 07/11/25 Robin Muniz RN [address] [place] [address] Registered Nurse Family Medicine 04/22/25 Leann Edgar 04/22/25 [facility] 04/28/25 documented as of this encounter
--- OUTSIDE RECORDS SUMMARY | 2025-07-21 11:46 | XMS_ITS | Encounter Summary ---
Author Organization [employer] Address [address] [place] [address] 7t [place] [address] Care Team Providers Care Loss Prevention Guard Name Role Phone Name, Charbel CARRILLO Primary Care Provider [phone] Мария Gudino PharmD Unavailable [phone] Robin Muniz RN Unavailable Leann Edgar Unavailable Reason for Visit * Reason Comments Med Refill Encounter Details Date Type Department Care Team (Late st Contact Info) Description 02/10/2023 Refill [facility] MEDICINE [address] [place], [place] [phone] Name, MD Charbel [address] [place], [place] [phone] Social History Tobacco Use Types Packs/Day Years [...] Info) Description 09/02/2025 11:00 AM EDT Telemedicine [facility] MEDICINE [address] [place] [address] Roz Le, RN documented as of this encounter Visit Diagnoses Not on filedocumented in this encounter Additional Health Concerns Assessment Noted Time PHQ-9 Depression Total Score: 0 10/23/20 3:25 PM EST documented as of this encounter Care Teams Loss Prevention Guard Relationship Specialty Start Date End Date Name, MD Charbel [address] [place] [address] PCP - General Family Medicine 02/26/16 Мария Gudino PharmD 230 [place] [address] Pharmacist Internal Medicine 04/29/23 07/11/25 Robin Muniz, ARLINE [address] [place] [address] Registered Nurse Family Medicine 04/22/25 [facility] Edgar [facility]25 [facility] documented as of this encounter
--- OUTSIDE RECORDS SUMMARY | 2025-07-21 11:46 | XMS_ITS | Encounter Summary ---
Author Organization [employer] Address [address] [place] [address] 7[address] [place] [address] Care Team Providers Care Health Program Director Name Role Phone Name, Charbel CARRILLO Primary Care Provider [phone] Мария Gudino PharmD Unavailable [phone] Robin Muniz RN Unavailable [phone] Leann Edgar Unavailable Reason for Visit * Reason Comments Med Refill Encounter Details Date Type Department Care Team (Late st Contact Info) Description 07/24/2024 Refill [facility] [address] [place], [place] [phone] Мария Gudino, PharmD [address] [place], [place] [phone] Essential hypertension; Type 2 diabetes mellitus with hyperglycemia, with long-term current use of insulin ([facility]) Social History Tobacco Use Types Packs/Day Years [...] 09/02/2025 11:00 AM EDT Telemedicine [facility] [address] [place] [address] Roz Le, RN documented as of this [...] hyperglycemia, with long-term current use of insulin ([facility]) documented in this encounter Additional Health Concerns Assessment Noted Time PHQ-9 Depression Total Score: 0 03/22/20 24 1:45 PM EDT documented as of this encounter Care Teams Health Program Director Relationship Specialty Start Date End Date Name, MD Charbel [address] [place] [address] PCP - General Family Medicine 02/26/16 Мария Gudino PharmD [address] [place] [address] Pharmacist Internal Medicine 04/29/23 07/11/25 Robin Muniz RN [address] [place] [phone] Registered Nurse Family Medicine 04/22/25 Leann Edgar 04/22/25 [facility] documented as of this encounter
--- OUTSIDE RECORDS SUMMARY | 2025-07-21 11:46 | XMS_ITS | Encounter Summary ---
Author Organization [employer] Address [address] [place] [address] 7 [place] [address] Care Team Providers Care Automobile Brakes Bonder Name Role Phone Name, Charbel CARRILLO Primary Care Provider [phone] Мария Gudino PharmD Unavailable [phone] Robin Muniz RN Unavailable [phone] Leann Edgar Unavailable Encounter Details Date Type Department Care Team (Late st Contact Info) Description 07/11/2025 Orders Only [facility] [address] [place] [address] Provider, MD Fant[place] Social History Tobacco Use [...] the past 12 months, has t he [employer], gas, oil or water [employer] threatened to shut off services in your [...] Info) Description 09/02/2025 11:00 AM EDT Telemedicine [facility] [address] [place] [address] Roz Le RN documented as of this [...] WO CONTRAST Routine 07/10/2025 10:04 AM EDT documented in this encounter Results * CT Abdomen Pelvis w/o Contrast (07/10/2025 10:04 AM EDT) Anatomical Region Laterality Modality Body, Pelvis, Abdomen Computed T omography us Historical Provider MD RAMOS CT PROCEDURES Final R esult documented in this encounter Visit Diagnoses Not on filedocumented in this encounter Additional Health Concerns Assessment Noted Time PHQ-9 Depression Total Score: 0 03/22/20 24 1:45 PM EDT documented as of this encounter Care Teams Automobile Brakes Bonder Relationship Specialty Start Date End Date Name, MD Charbel [address] [place] [address] PCP - General Family Medicine 02/26/16 Мария Gudino PharmD [address] [place] [address] Pharmacist Internal Medicine 04/29/23 07/11/25 Robin Muniz RN [address] [place] [address] Registered Nurse Family Medicine 04/22/25 Leann Edgar 04/22/25 [facility] 04/28/25 documented as of this encounter
--- OUTSIDE RECORDS SUMMARY | 2025-07-21 11:46 | XMS_ITS | Encounter Summary ---
Author Organization [employer] Address [address] [place] [address] 7[address] [place] [address] Care Team Providers Care Sanitary Plumber Name Role Phone Name, Charbel CARRILLO Primary Care Provider [phone] Мария Gudino PharmD Unavailable [phone] Robin Muniz RN Unavailable [phone] Leann Edgar Unavailable Reason for Visit * Reason Comments Med Refill Encounter Details Date Type Department Care Team (Late st Contact Info) Description 09/16/2023 Refill [facility] [address] [place], [place] [phone] Name, MD Charbel [address] [place], [place] [phone] Social History Tobacco Use Types Packs/Day Years [...] Info) Description 09/02/2025 11:00 AM EDT Telemedicine [facility] [address] [place] [phone] Roz Le RN documented as of this [...] documented as of this encounter Care Teams Sanitary Plumber Relationship Specialty Start Date End Date Name, MD Charbel [address] [place] [address] PCP - General Family Medicine 02/26/16 PuiaRichardМария, PharmD [address] [place] [address] Pharmacist Internal Medicine 04/29/23 07/11/25 Robin Muniz RN [address] [place] [address] Registered Nurse Family Medicine 04/22/25 Leann Edgar 04/22/25 [facility] 04/28/25 documented as of this encounter
--- OUTSIDE RECORDS SUMMARY | 2025-07-21 11:46 | XMS_ITS | Encounter Summary ---
Author Organization [employer] Address [address] [facility] 7t [place] [address] Care Team Providers Care School Laboratory Technician Name Role Phone Name, Charbel CARRILLO Primary Care Provider [phone] Мария Gudino PharmD Unavailable [phone] Robin Muniz RN Unavailable [phone] Leann Edgar Unavailable Encounter Details Date Type Department Care Team (Late st Contact Info) Description 09/24/2023 Abstract [facility] [address] [place], [place] [phone] Name, MD Charbel [address] [place], [place] [phone] Social History Tobacco Use Types Packs/Day Years [...] Info) Description 09/02/2025 11:00 AM EDT Telemedicine [facility] [address] [place] [address] Roz Le RN documented as of this [...] documented as of this encounter Care Teams School Laboratory Technician Relationship Specialty Start Date End Date Name, MD Charbel [address] [place] [address] PCP - General Family Medicine 02/26/16 Мария Gudino, PharmD [address] [place] [address] Pharmacist Internal Medicine 04/29/23 07/11/25 Robin Muniz RN [address] [place] [phone] Registered Nurse Family Medicine 04/22/25 Leann Edgar 04/22/25 [facility] 04/28/25 documented as of this encounter
== END 2025-07-21 11:43 | disposition home or self-care (01) ==
LOC: HO.HPS 10:25
PROVIDERS: PCP Internal Medicine Geriatric Medicine; Visit Provider Hospitalist
DX: J45.51 Severe persistent asthma with (acute) exacerbation (principal); J98.4 Other disorders of lung; G47.33 Obstructive sleep apnea (adult) (pediatric); M35.01 Sjogren syndrome with keratoconjunctivitis; J39.8 Other specified diseases of upper respiratory tract; J98.11 Atelectasis; K44.9 Diaphragmatic hernia without obstruction or gangrene; K22.2 Esophageal obstruction; K22.4 Dyskinesia of esophagus
CPT/HCPCS: 99215

== ENCOUNTER → 2025-07-21 10:25 | Outpatient (BNVA) | payer MEDICAID, SELFPAY | PROVIDERS: PCP Internal Medicine Geriatric Medicine; Visit Provider Hospitalist | DX: J45.51 Severe persistent asthma with (acute) exacerbation (principal); J98.4 Other disorders of lung; G47.33 Obstructive sleep apnea (adult) (pediatric); M35.01 Sjogren syndrome with keratoconjunctivitis; J39.8 Other specified diseases of upper respiratory tract; J98.11 Atelectasis; K44.9 Diaphragmatic hernia without obstruction or gangrene; K22.2 Esophageal obstruction; K22.4 Dyskinesia of esophagus | CPT/HCPCS: 99212 ==

== ENCOUNTER 2025-08-25 13:02 | Outpatient (AMB) | payer MEDICAID, SELFPAY ==
[2025-08-25 13:13] VITALS: BP 190/108; PULSE 81; O2SAT 98; BMI 30.8
--- NOTE | 2025-08-25 13:13 | A.OFFVIS_ITS ---
Vital Signs 08/25/25 13:13 Height 5 ft 5 in Weight 185 lb 3.013 oz BMI 30.8 BP 190/108 H Blood Pressure Location Rt brachial Pulse 81 Pulse Source Pulse Oximeter Pulse Oximetry (%) 98 Oxygen Delivery Method Room Air Intake Visit Reasons: Asthma Accompanied by: Self / Same As Patient Allergies latex (LATEX) Allergy (Severe, Verified 08/25/25 13:16) RASH passion fruit (PASSION FRUIT) Allergy (Severe, Verified 08/25/25 13:16) ANAPHYLAXIS Penicillins (PCN) Allergy (Severe, Verified 08/25/25 13:16) ANAPHYLAXIS shellfish derived (SHELLFISH DERIVED) Allergy (Severe, Verified 08/25/25 13:16) MOUTH SWELLING, ITCHY acetaminophen (From TYLENOL) Allergy (Mild, Verified 08/25/25 13:16) UNKNOWN ibuprofen (IBUPROFEN) Allergy (Mild, Verified 08/25/25 13:16) HX ULCERS TOLD NOT TO TAKE iodine (IODINE) Allergy (Mild, Verified 08/25/25 13:16) ITCHY lisinopril Adverse Reaction (Severe, Verified 08/25/25 13:16) Rash metformin Adverse Reaction (Severe, Verified 08/25/25 13:16) Rash HPI Comments Details: The patient is a 55 y/o woman with a history of tracheobronchomalacia in addition to asthma. She is status post tracheoplasty in [place] complicated by right-sided pleural effusion and significant right-sided chest discomfort. 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 More recently she did have a CT scan of the chest that [facility] demonstrating a nondisplaced rib fracture. No evidence of any pulmonary emboli. Her chest pain is still moderate severity. Limiting her activity. She is scheduled to have a repeat CT scan of the chest and bronchoscopy in [facility]. She continues to use her respiratory inhalers for her asthma. We did give her further indication about which inhalers she should be using. She is status post bronchoscopy demonstrating patency of the trachea and a successful surgery. Her cough is significantly improved. She continues with respiratory therapy. 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 She did have a visit with the pain specialist. In the meantime the patient needs to be using her CPAP. She states that he needs to be adjusted. She will bring in the next time so we can adjusted the CPAP so she can use it as prescribed. She understands was so help her respiratory status and also decrease cardiovascular risks. 05/13/2023 the patient is here for a pulmonary follow-up visit. Overall the patient had been doing relatively well. She continues to have dyspnea on exertion. She also responds well to the oxygen specially if she is exercising. The patient recently went to [place] and completed a course of thermoplastic. Now she is doing well from an asthma standpoint. She is continues on the Xolair continues with allergy medicine. She did undergo pulmonary function studies today which we personally reviewed in the office. No evidence of any obstructive ventilatory defects. Although her total lung capacity still low at 73%. Indeed is better than before which was 69% and a diffusing capacity is a little better as well. Still this restrictive ventilatory defect does the affect her her symptoms. I do believe that she will benefit from pulmonary rehabilitation at this time and the patient is agreeable to this. In the meantime she is going to continue with current allergy therapy. She also is being monitored off for underlying pulmonary nodules. Her last CT scan was done at [facility] back in January 2023. No evidence of any residual rib fractures that she was wondering. Again pulmonary nodules that will need follow-up. During that visit she also has some stranding in the GI tract due to likely food poisoning. Also, still having daytime drowsiness. EPWORTH score 11/24. 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 Will order an in-lab PSG. Current the patient is doing well she will return to [place] sometime in November. Otherwise will continue to follow her every 4-6 months. 07/31/2023 the patient is here for pulmonary follow-up visit. The patient has been complaining of worsening asthma symptoms. She has been having increasing chest tightness and wheezing. This has been happening now for the last 3 days. She continues with Xolair injections in does have been helpful. Denies any sick contacts. She has been using her respiratory therapy. Her cough is been difficult because is been keeping her up at nighttime. Will go ahead and provide her with cough suppressant therapy. She is concerned because she has a trip planned in at this point with the asthma exacerbation the patient will go ahead and receive Solu-Medrol IM x1. She is going to continue respiratory therapy. If the patient is no better she will call the office for additional steroid therapy. The patient also continues to have significant daytime drowsiness. She did have a sleep study back in the summer demonstrating mild sleep apnea. Patient will try positional therapy. But, if the patient continues to be symptomatic with daytime drowsiness she would benefit from CPAP therapy. 11/28/2023 the patient is here for sick visit. Apparently the beginning of the year she was exposed to her grandson with the flu. Ultimately developed the flu she did call and she did take Tamiflu. Although her respiratory symptoms worsened and she required prednisone and also antibiotics. She will call the office when he stopped the medications to the pharmacy. She continues to have significant asthma chest tightness and wheezing. She is wondering what she can do. She also has chest congestion and difficult to expectorate the phlegm. The patient does have significant wheezing will provide her with Solu-Medrol 125 mg IM x1. The patient also benefit from another course of antibiotics and prednisone. She does have a scheduled bronchoscopy next week for follow-up after thrombo plasty. But at this point I did recommend to the patient that if she continues to have active asthma she should postpone specially if there has no need for any interventions. 03/25/2024 the patient is here for a pulmonary follow-up visit. The patient recently had a upper respiratory illness resulting in an asthma exacerbation. The patient required antibiotics and prednisone. She now has completed the course. She still has hoarseness. She feels some chest congestion but overall better. The patient does not need any additional prednisone antibiotics. If her symptoms worsen she can always consider calling to be reassessed. In the meantime she is changing pharmacy so I sent her all her medicines with the new pharmacy. She also has been using the CPAP at nighttime. The CPAP therapy continues to be affecting beneficial. She does try to use it more than 4 hours a night. She has not been getting supplies. I did send a script to [facility] in order for her to get supplies. I explained to the patient that she needs to make sure she has adequate usage from the CPAP in order to be active with them. In the meantime I did provide her with an N30 eyes small mask that seemed to fit better than the P 10 nasal pillows that was irritating her nares. I will requ est that new mask to the [facility]. The patient also be following up in [place] soon. She is scheduled to have a PFT a CT scan and possibly a bronchoscopy to have an evaluation post thermoplastic. The patient will request her imaging studies in order for us to be able to review them over here. She was a;so evaluated by allergy and had allergy testing. She continues on the Xolair. Otherwise patient is without other complaints. She will follow-up in 3- 4 months. If any new issues arise she will call for an earlier assessment. 06/14/2024 the patient is here for a sick visit. Apparently patient was in his usual state health until this weekend started developing some difficulty with her breathing. [place] like her throat was closing up. [place] some difficulty swallowing. Although no sore throat. She continue using her respiratory therapy. As far as exposures she had been out during the day and pureed. There was positive sick contacts although she does not have any Viral syndrome symptoms. She also states that recently her Xolair was increased and she is not sure if that has anything to do with it. She does have an EpiPen although is not up today and is actually . I will send her new EpiPen to the pharmacy. She knows when to use it and how to use it. The patient does have some swelling on the throat area. I do not see any evidence of any angioedema or any edema of the uvula. I also do not appreciate any stridor at this time. Will go ahead and treat her with some prednisone to decrease the inflammatory changes and also will treat her for the possibility of bacterial pharyngitis. The patient be following up with her purse framer in a couple weeks at which point she can continue to be evaluated as far as symptoms. But at this point she has been on Xolair for a long period of time and she has done well on it and I do not believe that the increasing the medication has any evidence of any adverse effects at this time. 07/26/2024 the patient is here for a pulmonary follow-up visit. She still struggling with her breathing. The patient is been concerned about the Xolair. She feels that she is having reactions to it. We last spoke she had to use an EpiPen twice. The patient also has been having some issue with hoarseness and raspiness of her voice. She has also had chest congestion chest tightness. The patient has required her nebulizer several times a day. She has also continue with respiratory therapy. We did do additional blood work. It looks like her IgE level continues to be elevated. Eosinophil levels okay. Although at this point because of adverse symptoms it would be reasonable to switch her biologic to a different agent. I do believe test part be a good option for her. Dupixent will be a good option to however, her eosinophils are within normal limits. She is also concerned about her tracheobronchomalacia. She feels like it is coming back. She is supposed to be seen by [place] soon. She continues use her CPAP every night. CPAP therapy has been affecting beneficial. She needs use more than 4 hours a night. Therefore will continue with the current respiratory therapy and allergy therapy. The patient has required prednisone multiple times as it is already. She has diabetes. We need to minimize her prednisone use. The patient does have chronic bronchitis so therefore the use of Daliresp at this time will be helpful. 09/30/2024 the patient is here for pulmonary follow-up visit. Overall she is doing fairly well. She is tolerating the test prior. Has not had any reactions like she was having before. Still has raspiness of the voice. Indeed he may be the inhalers. Although they seem to be working well for her. She does have a barium swallow scheduled soon to see if she has any potential reflux that may be contributing to her hoarseness. In the meantime the patient will be followed up at for her yearly follow-up CT scan and likely bronchoscopy. 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 She has regained some back. She is still dealing with that with the pourer. The patient will return in 3 4 months. If she has any issues prior to that she will call for an earlier assessment. She is also using his CPAP every night. CPAP therapy has been affecting beneficial she does use it for more than 4 hours a night. She is using a nasal pillow. Although it is irritating her nostrils. Will go ahead and see if we can get her nasal mask instead. She can also try cradle. 01/06/2025 she is here for pulmonary follow-up visit. Overall she is doing fairly well. She did follow-up in [place] and did have a CT scan of the chest and also bronchoscopy. They found that she had a component of tracheomalacia but minimal. And she did have an intervention. They also found that she has some atelectasis to the right base. And felt that this part is affecting her gas exchange. She continues use oxygen. She does have the concentrator at home and has a portable tanks that she gets to [facility]. Although it has been difficult for her to carry because of the difficulty carrying tanks. Therefore will request a portable oxygen concentrator 2 L pulse she can using the meantime. The patient also continues to use her CPAP. The CPAP therapy continues to be affecting beneficial. She does use it for more than 4 hours a night. In addition to that she is on her allergy medication and also her asthma medications she continues to be on test by every month with good results. Right now she is consider having plastic surgery for her abdomen. She needed a preop clearance letter which I provided her otherwise the patient is doing well will follow-up in 2-3 months. 03/01/2025 the patient is here for pulmonary follow-up visit. She has been noticing increasing chest congestion specially after having a bronchoscopy in [place]. She also been a little more hoarse. She feels it is mainly in the middle the chest. She is bringing up some phlegm yellowish in color. Moderate severity. Denies any fevers or chills. After the bronchoscopy she did have some fevers but less typical. She did have significant secretions. She also had a chest x-ray with evidence of atelectasis or opacity in the right lower lobe. She will be following up in [place] soon. Otherwise will repeat the x-ray here to make sure that things are opening up. We could be mucus plugging. Therefore will start her back on azithromycin 3 times a week and also she should be on Daliresp. It was prescribed but she had not been taking it. Explained to her would help with chronic bronchitis and does which she has and it would be helpful for her to do it. The patient also has been using her oxygen. Oxygen therapy has been affecting beneficial. She has had shoulder surgery and now recently elbow surgery and difficult time caring any oxygen tanks. She will benefit from a portable oxygen concentrator that will provide better portability outside of the home. She uses a 2 L pulse with activity. It is likely because of the atelectasis in the opacity in the right base that her gas exchange is impaired and that is what she needs the oxygen. Therefore, she will return in after 6 months of therapy will repeat an x-ray. She also has an appointment to go back to [place]. In the meantime she has been using the CPAP. CPAP therapy has been affecting beneficial. She does use it for more than 4 hours a night. 05/26/2025 the patient is here for a pulmonary follow-up visit. She has had a very eventful few months. She did underwent a abdominal surgery and the surgery was complicated by poor healing and subsequently necrotic tissue. She did required debridement and now has a wound VAC. she has been followed closely by Wound Care. Respiratory garcia the patient has been doing okay although does have a chronic cough. Will try to minimize cough specialists she is trying to heal from the wound. In the meantime she does have her oxygen that she uses with activity. She is requesting a POC. Will have her come in for 6 minute walk test at some point whenever she feels better in order to see if she qualifies for 1. She will continue her current respiratory therapy. Will follow-up in 2- 3 months. 07/21/2025 the patient is here for pulmonary follow-up visit. Recently she was hospitalized at [facility] because of her wound in her abdomen after her surgery. Now appears to be healing well and her wound VAC has been removed. And she is being monitor closely. Seems to be doing better. Part, she has been having difficulty with her breathing and her asthma has been more active. Will holding off on prednisone because from pulmonary to heal and she understands the prednisone can affect her healing process. She has had more coughing addition to chest tightness and congestion. The patient has not been using her nebulizer. She does have wheezing on exam and I did provide her with Xopenex and she did very well and her respiratory symptoms did improve in her cough settled some. Therefore, the patient understands that she needs to start using her nebulizer at least twice a day and will provide her with Xopenex in addition to budesonide to allow her to have improvement in respiratory symptoms without the use of prednisone. If she has getting worse and she has no other option then using prednisone then she can start prednisone then. The patient also has been having issues with her swallowing. She does have a problem with a small hiatal hernia also stricture of the GE junction and also achalasia and dysmotility disorder. She has been followed closely with GI and she will be seeing GI at [facility] soon. She understands that this GI issue can ultimately resulting worsening asthma symptoms chest congestion and cough. 08/25/2025 the patient is here for pulmonary follow-up visit. She has multiple complaints. She is still coughing and chest congestion. Also been more winded. She is concerned because she has not gotten any better. She is wondering about getting Solu-Medrol or prednisone. I explained to her that this will affect her healing process with a wound in her abdomen. A rather not give her prednisone if we can avoid it. However if her symptoms worsen we can always try a short course. In the meantime her cough may be due to the fact that she has this narrowing of the esophagus causing to have some degree of reflux. She is scheduled to undergo an endoscopy in the coming weeks which will be helpful. The patient also complaining about her wound having some induration and painful spots. She is not sure if there seromas or if they are little boils of infection. The patient will start doxycycline to treat both the skin and also the respiratory issues. She needs to continue using her nebulizer at least twice a day. And will also assess of blood work specially since she has been complaining of pleuritic right-sided chest pain. Moderate severity. Specially with the surgery and complications we have to make sure that she does not have risk for thromboembolic disease. Therefore will check a D-dimer. If it is positive will have to do a CTA. If the D-dimer is negative will still get a CAT scan but noncontrast to assess her chest discomfort. [facility] Medical History (Updated 08/25/25 @ 13:49 by Hood Edgar MD) Pleuritic chest pain Esophageal dysmotility Esophageal stenosis Hiatal hernia Atelectasis Laryngitis Dysphagia Rib fracture Rib fracture Cough Chronic restrictive lung disease [id number] syndrome CJ (obstructive sleep apnea) CJ on CPAP Diabetes Sjogrens syndrome Lesion of bronchus Pneumonia Asthma Tracheobronchomalacia COVID-19 Surgical History (System 02/10/25 @ 16:16 by Deidra Melendez) History of carpal tunnel surgery of left wrist History of bronchoscopy History of endometrial ablation Hx of tubal ligation Family History Mother Asthma Father Diabetes Social History Household Members: Spouse and Children Alcohol intake: never Patient Tobacco Use Status: Former Tobacco user Tobacco use type: Cigarette Years Smoked: 2-3 yrs Second Hand Smoke Exposure: No Review of Systems Const Denies chills, Denies fatigue, Denies fever(s), Denies weight gain and Denies weight loss Eyes Reports as per HPI and Reports change in vision ENT Reports dysphagia, Denies dizziness and Denies lip swelling Card Denies chest pain, Denies leg edema, Denies lightheadedness, Denies palpitations, Denies dyspnea on exertion, Denies orthopnea and Denies other Resp Reports change in phlegm color, Reports chest congestion, Reports cough, Denies dyspnea on exertion and Reports wheezing GI Denies hematochezia, Denies change in stool character and Reports dysphagia Musc Denies abnormal gait, Denies muscle weakness, Denies numbness, Denies radiating pain into limb and Denies tingling Skin/Breast Denies rash Neuro Denies abnormal gait, Denies dizziness, Denies numbness and Denies tingling Psych Denies no additional complaints Endo Denies fatigue and Denies palpitations Anatoliy/Lymph Denies easy bleeding and Denies lymphadenopathy Aller/Immun Denies lip swelling and Reports wheezing Physical Exam Vital Signs: Last Vital Signs Pulse 81 08/25/25 13:13 BP 190/108 H 08/25/25 13:13 Pulse Ox 98 08/25/25 13:13 Oxygen Delivery Method Room Air 08/25/25 13:13 BMI result Body Mass Index 30.8 Const General: alert; No in distress HEENT Head: Yes normocephalic Throat: Yes posterior oropharynx abnormal ( erythematous), Yes postnasal drainage and No uvular edema Neck Neck: Yes normal visual inspection, Yes full ROM, Yes no lymphadenopathy and Yes lymphadenopathy Chest Chest palpation & inspection: normal inspection of the chest Resp Effort & Inspection: normal respiratory effort, Actively coughing and prolonged expiratory phase Auscultation: wheezes and diminished lung sounds Cardio Rate: regular rate Rhythm: regular rhythm Heart sounds: S1 normal heart sound present and S2 normal heart sound present GI Inspection: Yes other (wound vac) Palpation (GI): Soft to palpation Auscultation: normal bowel sounds Skin General skin exam: rashes and/or lesions noted Extrem General: No cyanosis and Yes edema Assessment & Plan Assessment & Plan (1) Asthma: Comment: s/p thermoplasty Code(s): J45.909 - Unspecified asthma, uncomplicated Category: Medical Qualifiers: Asthma complication type: with acute exacerbation Asthma persistence: persistent Asthma severity: severe Qualified Code(s): J45.51 - Severe persistent asthma with (acute) exacerbation (2) Chronic restrictive lung disease: Code(s): J98.4 - Other disorders of lung Category: Medical (3) CJ (obstructive sleep apnea): Code(s): G47.33 - Obstructive sleep apnea (adult) (pediatric) Category: Medical (4) Sjogrens syndrome: Comment: ++SSa dx around 2017 HCQ 2017 Code(s): M35.00 - Sjogren syndrome, unspecified Category: Medical Qualifiers: Sjogren's organ involvement: keratoconjunctivitis Qualified Code(s): M35.01 - Sicca syndrome with keratoconjunctivitis (5) Tracheobronchomalacia: Comment: 2019: treated with tracheoplasty in [place] Code(s): J39.8 - Other specified diseases of upper respiratory tract Category: Medical (6) Atelectasis: Code(s): J98.11 - Atelectasis Category: Medical (7) Hiatal hernia: Code(s): K44.9 - Diaphragmatic hernia without obstruction or gangrene Category: Medical (8) Esophageal stenosis: Code(s): K22.2 - Esophageal obstruction Category: Medical (9) Esophageal dysmotility: Code(s): K22.4 - Dyskinesia of esophagus Category: Medical Plan Nebulizer in the office continue Tezspire Continue Breo, incruse BUdesonide nebs BID Prednisone only if worsens Continue APAP, trial Nasal mask increase [place] to BID x 1 month Xopenex - The patient cannot tolerate albuterol due to significant adverse effects with tachycardia at tremulousness and agitation PPI reflux diet F/U at [facility] continue oxygen: requesting POC 2L/pulse for better portability outside of the home. Difficult time with oxygen tanks with her orthopedic surgeries. stop Azithromycin MWF start Doxycycline Bloddwork / ddimer Needs to F/U with GI and undergo EGD, likely needs esophageal dilation CT chest F/U 2-3 months Orders: Orders D Dimer High Sensitivity Today M35.01 - Sjogren syndrome with keratoconjunctivitis, R07.81 - Pleurodynia Erythrocyte Sedimentation Rate Today M35.01 - Sjogren syndrome with keratoconjunctivitis, R07.81 - Pleurodynia Basic Metabolic Panel Today M35.01 - Sjogren syndrome with keratoconjunctivitis, R07.81 - Pleurodynia Liver Panel Today M35.01 - Sjogren syndrome with keratoconjunctivitis, R07.81 - Pleurodynia CT chest wo IV con Today J39.8 - Other specified diseases of upper respiratory tract, J98.09 - Other diseases of bronchus, not elsewhere classified, R07.81 - Pleurodynia Complete Blood Count Auto Diff Today M35.01 - Sjogren syndrome with keratoconjunctivitis, R07.81 - Pleurodynia Medications: New doxycycline monohydrate 100 mg PO BID 42 tabs 0RF 21 days Refilled codeine-guaifenesin 10-100 mg/5 mL 10 mL PO Q6H PRN 300 mL 0RF cough 10 days Coding Level of Care Code Est Pt Level 5 (53776) Complex EM visit Add On G2211 Diagnoses Severe persistent asthma with acute exacerbation J45.51 Asthma complication type: with acute exacerbation Asthma persistence: persistent Asthma severity: severe Chronic restrictive lung disease J98.4 CJ (obstructive sleep apnea) G47.33 Sjogren's syndrome with keratoconjunctivitis sicca M35.01 Sjogren's organ involvement: keratoconjunctivitis Tracheobronchomalacia J39.8 Atelectasis J98.11 Hiatal hernia K44.9 Esophageal stenosis K22.2 Esophageal dysmotility K22.4 Time Spent (min) 45
== END 2025-08-25 13:53 | disposition home or self-care (01) ==
LOC: HO.HPS 13:03
PROVIDERS: PCP Internal Medicine Geriatric Medicine; Visit Provider Hospitalist
DX: J45.51 Severe persistent asthma with (acute) exacerbation (principal); J98.4 Other disorders of lung; G47.33 Obstructive sleep apnea (adult) (pediatric); M35.01 Sjogren syndrome with keratoconjunctivitis; J39.8 Other specified diseases of upper respiratory tract; J98.11 Atelectasis; K44.9 Diaphragmatic hernia without obstruction or gangrene; K22.2 Esophageal obstruction; K22.4 Dyskinesia of esophagus
CPT/HCPCS: 99215

== ENCOUNTER 2025-08-25 13:02 | Outpatient (REF) | payer MEDICAID, SELFPAY ==
[2025-08-25 14:24] LABS: MANUAL DIFF FLAG NO
[2025-08-25 14:50] LABS: Hematocrit 39.2 % (37.0-47.0); Hemoglobin 11.3 g/dl (12.0-16.0); Imm Gran Abs Auto 0.01 X10*3/uL (0.00-0.03); Imm Gran Pct Auto 0.1 % (0.0-0.4); Lymphocytes Absolute Auto 2.7 X10*3/uL (1.2-4.9); Mean Corpuscular HGB Conc 28.8 g/dl (31.0-35.0); Mean Corpuscular Hemoglobin 22.0 pg (27.0-33.0); Mean Corpuscular Volume 76.4 fL (80.0-98.0); NRBC Abs Auto 0.000 X10*3/uL (0.0-0.012); NRBC Pct Auto 0.0 /100WBC (0.0-0.2); Platelet Count 299 X10*3/uL (160-400); Red Blood Count 5.13 X10*6/uL (4.20-5.50); White Blood Count 7.2 X10*3/uL (4.8-10.8)
[2025-08-25 14:56] LABS: D Dimer High Sensitivity 200 NG/ML
[2025-08-25 16:54] LABS: Alanine Aminotransferase 26 U/L (0-31); Albumin Level 4.7 g/dL (3.5-5.0); Alkaline Phosphatase 119 U/L (39-117); Anion Gap 14 (12-20); Aspartate Amino Transferase 24 U/L (5-31); Blood Urea Nitrogen 15 mg/dL (9-16); Calcium 9.3 mg/dL (8.4-10.2); Carbon Dioxide 24 mmol/L (22-29); Chloride 108 mmol/L (96-108); Estimated Glomerular Filt Rate > 60; Potassium 3.9 mmol/L (3.3-5.1); Sodium 142 mmol/L (135-145); Total Protein 7.7 g/dL (6.5-8.0)
== END 2025-08-25 13:03 | disposition home or self-care (01) ==
LOC: HO.LAB 13:02
PROVIDERS: PCP Internal Medicine Geriatric Medicine; Visit Provider Hospitalist
DX: J45.51 Severe persistent asthma with (acute) exacerbation (principal); J98.4 Other disorders of lung; G47.33 Obstructive sleep apnea (adult) (pediatric); M35.01 Sjogren syndrome with keratoconjunctivitis; J39.8 Other specified diseases of upper respiratory tract; J98.11 Atelectasis; K44.9 Diaphragmatic hernia without obstruction or gangrene; K22.2 Esophageal obstruction; K22.4 Dyskinesia of esophagus; R07.81 Pleurodynia
CPT/HCPCS: 36415; 80048; 80076; 85025; 85379; 85652; 99212

== ENCOUNTER 2025-09-16 09:03 | Outpatient (AMB) | payer MEDICAID, SELFPAY ==
--- OUTSIDE RECORDS SUMMARY | 2025-09-15 10:30 | XMS_ITS | Encounter Summary ---
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 year old female who is called for [employer]PER[employer] Renewal Preferred language for medical information: British Interpreted needed: No Sade Izaguirre does not report adherence to Oxycodone 10 mg, take 1 tablet every 6 hours PRN, last refilled 08/20/2025. States she usually only uses 4 doses a day, occasionally will take a 5th dose. The patient last took Oxycodone on: 09/15/2025 Medication is: 60% % effective at alleviating pain. 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 Vital Signs Pain Score: 10-Worst pain ever Pain Loc: Abdomen Pain Education: Yes Additional pain site: lower back, neck, shoulders and knee's Last PCP visit: 05/10/2025 BPI completed on: 09/15/2025 , pain severity score: 9, activity interference score: 9 BPI completed on: 05/30/2025 , pain severity score: 8, activity interference score: 9 Controlled substance agreement signed: Controlled Substance Agreement 11/22/2024 Controlled substance agreement: signed and up to date [employer] Tele Tier: 2 Current Medications[1] Smoking status: Denies ETOH use: Denies Illicit substances: Denies Marijuana use: No ASSESSMENT: Encounter Diagnosis Name Primary? Long-term current use of opiate analgesic PLAN: Reviewed with patient that PCP has just placed an order for abdominal CT and that someone will callher to schedule this. Information on pain group given: Yes Information on acupuncture given: Yes Narcan education provided: Yes Narcan prescription: inactive- refill request submitted to provider Will update PCP with BPI scoring, request narcan renewal and request oxycodone refill. Controlled substance agreement reviewed and signed. Sade Izaguirre will continue taking medications as prescribed and has verbalized understanding of care plan. Future Appointments Date Time Provider Department Center 12/16/2025 1:30 PM Roz Le RN [facility] Roz Le RN [1] Current Outpatient Medications: oxyCODONE (Roxicodone) 10 MG immediate release tablet, Take 1 tablet (10 mg) by mouth every 6 (six)hours if needed for severe pain for up to 28 days., Disp: 112 tablet, Rfl: 0 Alcohol Swabs (B-D SINGLE USE SWABS REGULAR) pads, USE NEEDED 6 TIMES A DAY, Disp: 200 each, Rfl: 5 ARIPiprazole (Abilify) 2 MG tablet, Take 1 tablet by mouth Once per day., Disp: , Rfl: Artificial Tears 0.2-0.2-1 % solution, INSTILL 1 DROP INTO EVERY 4 TO 6 HOURS NEEDED FOR DRY EYE, Disp: , Rfl: aspirin 81 MG EC tablet, Take 1 tablet (81 mg) by mouth Once per day., Disp: 90 tablet, Rfl: 3 atorvastatin (Lipitor) 40 MG tablet, TAKE 1 TABLET(40 MG) BY MOUTH DAILY, Disp: 90 tablet, Rfl: 3 azelastine (Optivar) 0.05 % ophthalmic solution, INSTILL 1 DROP IN BOTH EYES TWICE DAILY, Disp: 6 mL, Rfl: 2 baclofen (Lioresal) 10 MG tablet, TAKE 1 TABLET BY MOUTH EVERY DAY FOR UP TO 20 DAYS NEEDED FOR MUSCLE SPASMS, Disp: 60 tablet, Rfl: 0 biotin 5000 MCG tablet, Take 1 tablet by mouth in the morning., Disp: , Rfl: bisacodyl (Dulcolax) 5 MG EC tablet, Take 1 tablet (5 mg) by mouth if needed in the morning, at noon, and at bedtime for constipation. Do not crush, chew, or split., Disp: 90 tablet, Rfl: 3 Blood Glucose Monitoring Suppl (FreeStyle [place] Lite) w/Device kit, Use to test blood sugar 3 times daily, Disp: 1 kit, Rfl: 0 Blood Pressure kit, Use daily, Disp: 1 kit, Rfl: 0 Breo Ellipta 200-25 MCG/ACT aerosol powder , INHALE 1 PUFF BY MOUTH DAILY, Disp: , Rfl: buPROPion XL (Wellbutrin XL) 300 MG 24 hr tablet, Take 1 tablet by mouth 1 (one) time each day., Disp: , Rfl: carvedilol (Coreg) 25 MG tablet, TAKE 1 TABLET BY MOUTH WITH BREAKFAST AND EVENING MEAL, Disp: 180 tablet, Rfl: 2 celecoxib (CeleBREX) 200 MG capsule, TAKE 1 CAPSULE BY MOUTH EVERY MORNING, Disp: 30 capsule, Rfl: 11 clonazePAM (KlonoPIN) 1 MG tablet, Take 1 tablet by mouth in the morning, at noon, in the evening, and at bedtime., Disp: , Rfl: Diclofenac Sodium 1 % gel, APPLY 2 GRAMS TOPICALLY TO THE AFFECTED AREA TWICE DAILY, Disp: 100 g, Rfl: 1 docusate sodium (Colace) 100 MG capsule, Take 1 capsule by mouth if needed in the morning and at bedtime for constipation., Disp: , Rfl: doxepin (SINEquan) 25 MG capsule, TAKE 1 CAPSULE BY MOUTH EVERY DAY AT NIGHT, Disp: , Rfl: empagliflozin (Jardiance) 25 MG, Take 1 tablet by mouth in the morning., Disp: , Rfl: EPINEPHrine (Epipen) 0.3 MG/0.3ML injection syringe, INJECT 0.3MG IN THE MUSCLE EVERY 10 MINUTES ASNEEDED FOR ANAPHYLAXIS, Disp: , Rfl: fluconazole (Diflucan) 150 MG tablet, Take 1 tablet (150 mg) by mouth 1 (one) time per week., Disp:2 tablet, Rfl: 0 fluocinolone (Synalar) 0.01 % external solution, APPLY TOPICALLY TO THE AFFECTED AREA TWICE DAILY, Disp: 60 mL, Rfl: 1 fluticasone (Flonase) 50 MCG/ACT nasal spray, 2 SPRAYS IN EACH NOSTRIL ONCE A DAY, Disp: 48 g, Rfl:0 FreeStyle lancets, USE ONE LANCET THREE TIMES DAILY, Disp: 100 each, Rfl: 11 FREESTYLE LITE test strip, 1 each by Other route 3 times daily. Use to test blood sugar three timesdaily as directed, Disp: , Rfl: gabapentin (Neurontin) 800 MG tablet, Take 1 tablet (800 mg) by mouth 2 times daily., Disp: 60 tablet, Rfl: 11 hydrALAZINE (Apresoline) 10 MG tablet, Take 1 tablet (10 mg) by mouth 2 times daily., Disp: 180 tablet, Rfl: 1 hydroxychloroquine (Plaquenil) 200 MG tablet, Take 1 tablet by mouth 2 times daily., Disp: , Rfl: insulin glargine (Lantus SoloStar) 100 UNIT/ML pen, Inject 32 Units under the skin Once daily., Disp: , Rfl: Insulin Lispro 100 UNIT/ML solution, USE PER SLIDING SCALE. INJECT 6 TO 18 UNITS UNDER THE SKIN THREE TIMES DAILY BEFORE MEALS. MAX DAILY DOSE OF 54 UNITS, Disp: , Rfl: insulin pen needle (BD Pen Needle Yajaira U/F) 32G x 4 mm misc, Inject under the skin in the morning, at noon, and at bedtime. Use as instructed, Disp: , Rfl: levalbuterol (Xopenex) 1.25 MG/3ML nebulizer solution, Inhale 3 mL every 6 (six) hours if needed for shortness of breath., Disp: , Rfl: levalbuterol (Xopenex) 45 MCG/ACT inhaler, Inhale 2 puffs every 6 (six) hours if needed for shortness of breath., Disp: , Rfl: lidocaine (Lidoderm) 5 % patch, APPLY 1 PATCH EVERY MORNING REMOVE AND DISCARD PATCH WITHIN 12 HOURS DIRECTED BY PERSCRIBER, Disp: 30 patch, Rfl: 2 loperamide (Imodium) 2 MG capsule, TAKE 1 TO 2 CAPSULES BY MOUTH IF NEEDED IN THE MORNING, AT NOON,EVENING, AND AT BEDTIME FRO DIARRHEA FOR UP TO 10 DAYS, Disp: 30 capsule, Rfl: 0 loratadine (Claritin) 10 MG tablet, Take 1 tablet by mouth Once per day., Disp: , Rfl: melatonin 5 MG tablet, Take 1 tablet (5 mg) by mouth at bedtime., Disp: 90 tablet, Rfl: 1 minoxidil (Loniten) 2.5 MG tablet, Take 1 tablet (2.5 mg) by mouth Once per day., Disp: 30 tablet, Rfl: 11 Misc. Devices (Pulse Oximeter) [facility] [place] [place], Use as Directed, Disp: , Rfl: mometasone (Elocon) 0.1 % ointment, APPLY TOPICALLY TO THE AFFECTED AREA IN THE MORNING, Disp: 15 g, Rfl: 0 montelukast (Singulair) 10 MG tablet, Take 1 tablet by mouth Once per day., Disp: , Rfl: nystatin-triamcinolone (Mycolog II) ointment, APPLY TOPICALLY TO THE AFFECTED AREA TWICE DAILY, Disp: 15 g, Rfl: 1 ondansetron (Zofran) 4 MG tablet, TAKE 1 TABLET(4 MG) BY MOUTH EVERY 8 HOURS FOR UP TO 13 DAYS NEEDED FOR NAUSEA OR VOMITING, Disp: 20 tablet, Rfl: 1 OXcarbazepine (Trileptal) 150 MG tablet, Take 150 mg by mouth in the morning., Disp: , Rfl: OXcarbazepine (Trileptal) 300 MG tablet, Take 300 mg by mouth at bedtime., Disp: , Rfl: Ozempic, 2 MG/DOSE, 8 MG/3ML solution pen-injector, Inject 2 mg under the skin every 7 (seven) days., Disp: , Rfl: pantoprazole (ProtoNix) 40 MG EC tablet, TAKE 1 TABLET(40 MG) BY MOUTH BEFORE BREAKFAST. DO NOT CRUSH, CHEW, OR SPLIT, Disp: 90 tablet, Rfl: 0 pilocarpine (Salagen) 5 MG tablet, Take 5 mg by mouth 3 times daily., Disp: , Rfl: Roflumilast 500 MCG tablet, Take 1 tablet by mouth 1 (one) time each day., Disp: , Rfl: sennosides (Senokot) 8.6 MG tablet, Take 17.2 mg by mouth if needed each day for constipation., Disp: , Rfl: silver sulfADIAZINE (Silvadene) 1 % cream, Apply topically Once per day., Disp: , Rfl: sucralfate (Carafate) 1 g tablet, TAKE 1 TABLET BY MOUTH BEFORE BREAKFAST, LUNCH, EVENING MEAL, ANDAT BEDTIME X 14 DAYS, Disp: 56 tablet, Rfl: 0 SUMAtriptan (Imitrex) 25 MG tablet, Take 1 tablet by mouth every 2 (two) hours if needed. Oral route after onset of migraine repeat after 2 hours if headache returns not to exceed 200mg in 24 hours, Disp: , Rfl: Umeclidinium [place] (Incruse Ellipta) 62.5 MCG/ACT aerosol powder , Inhale 1 puff 1 (one) time each day., Disp: , Rfl: valsartan-hydroCHLOROthiazide (Diovan-HCT) 320-25 MG tablet, Take 1 tablet by mouth Once per day., Disp: 90 tablet, Rfl: 2 Xolair 75 MG/0.5ML injection, , Disp: , Rfl: zolpidem (Ambien) 10 MG tablet, Take 1 tablet by mouth if needed at bedtime., Disp: , Rfl: documented in this encounter Plan of Treatment Upcoming Encounters Date Type Department Care Team (Late st Contact Info) Description 09/16/2025 11:00 AM EDT Office Visit [address] [address] Name, MD Charbel [address] [place] [id number] 12/16/2025 1:30 PM EST Telemedicine [address] [address] Roz Le, ARLINE documented as of this [...] as of this encounter Visit Diagnoses Diagnosis Long-term current use of opiate analgesic Encounter for long-term (current) use of other medications documented in this encounter Additional Health Concerns Assessment Noted Time PHQ-9 Depression Total Score: 0 03/22/20 24 1:45 PM EDT documented as of this encounter Care Teams 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
[2025-09-16 09:06] VITALS: BP 162/92; PULSE 80; O2SAT 99; BMI 30.6
--- NOTE | 2025-09-16 09:06 | MHC.OFFVIS ---
Vital Signs 09/16/25 09:06 Height 5 ft 5 in Weight 184 lb 1.376 oz BMI 30.6 BP 162/92 H Blood Pressure Location Rt brachial Position Sitting Pulse 80 Pulse Source Pulse Oximeter Pulse Oximetry (%) 99 Oxygen Delivery Method Room Air Intake Visit Reasons: Asthma Vegetable Tier Required: No Accompanied by: Self / Same As Patient Allergies latex (LATEX) Allergy (Severe, Verified 09/16/25 09:09) RASH passion fruit (PASSION FRUIT) Allergy (Severe, Verified 09/16/25 09:09) ANAPHYLAXIS Penicillins (PCN) Allergy (Severe, Verified 09/16/25 09:09) ANAPHYLAXIS shellfish derived (SHELLFISH DERIVED) Allergy (Severe, Verified 09/16/25 09:09) MOUTH SWELLING, ITCHY acetaminophen (From TYLENOL) Allergy (Mild, Verified 09/16/25 09:09) UNKNOWN ibuprofen (IBUPROFEN) Allergy (Mild, Verified 09/16/25 09:09) HX ULCERS TOLD NOT TO TAKE iodine (IODINE) Allergy (Mild, Verified 09/16/25 09:09) ITCHY lisinopril Adverse Reaction (Severe, Verified 09/16/25 09:09) Rash metformin Adverse Reaction (Severe, Verified 09/16/25 09:09) Rash HPI Comments Details: The patient is a 55 y/o woman with a history of tracheobronchomalacia in addition to asthma. She is status post tracheoplasty in [place] complicated by right-sided pleural effusion and significant right-sided chest discomfort. 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 More recently she did have a CT scan of the chest that [facility] demonstrating a nondisplaced rib fracture. No evidence of any pulmonary emboli. Her chest pain is still moderate severity. Limiting her activity. She is scheduled to have a repeat CT scan of the chest and bronchoscopy in [facility]. She continues to use her respiratory inhalers for her asthma. We did give her further indication about which inhalers she should be using. She is status post bronchoscopy demonstrating patency of the trachea and a successful surgery. Her cough is significantly improved. She continues with respiratory therapy. 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 She did have a visit with the pain specialist. In the meantime the patient needs to be using her CPAP. She states that he needs to be adjusted. She will bring in the next time so we can adjusted the CPAP so she can use it as prescribed. She understands was so help her respiratory status and also decrease cardiovascular risks. 05/13/2023 the patient is here for a pulmonary follow-up visit. Overall the patient had been doing relatively well. She continues to have dyspnea on exertion. She also responds well to the oxygen specially if she is exercising. The patient recently went to [place] and completed a course of thermoplastic. Now she is doing well from an asthma standpoint. She is continues on the Xolair continues with allergy medicine. She did undergo pulmonary function studies today which we personally reviewed in the office. No evidence of any obstructive ventilatory defects. Although her total lung capacity still low at 73%. Indeed is better than before which was 69% and a diffusing capacity is a little better as well. Still this restrictive ventilatory defect does the affect her her symptoms. I do believe that she will benefit from pulmonary rehabilitation at this time and the patient is agreeable to this. In the meantime she is going to continue with current allergy therapy. She also is being monitored off for underlying pulmonary nodules. Her last CT scan was done at [facility] back in January 2023. No evidence of any residual rib fractures that she was wondering. Again pulmonary nodules that will need follow-up. During that visit she also has some stranding in the GI tract due to likely food poisoning. Also, still having daytime drowsiness. EPWORTH score 11/24. 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 Will order an in-lab PSG. Current the patient is doing well she will return to [place] sometime in November. Otherwise will continue to follow her every 4-6 months. 07/31/2023 the patient is here for pulmonary follow-up visit. The patient has been complaining of worsening asthma symptoms. She has been having increasing chest tightness and wheezing. This has been happening now for the last 3 days. She continues with Xolair injections in does have been helpful. Denies any sick contacts. She has been using her respiratory therapy. Her cough is been difficult because is been keeping her up at nighttime. Will go ahead and provide her with cough suppressant therapy. She is concerned because she has a trip planned in at this point with the asthma exacerbation the patient will go ahead and receive Solu-Medrol IM x1. She is going to continue respiratory therapy. If the patient is no better she will call the office for additional steroid therapy. The patient also continues to have significant daytime drowsiness. She did have a sleep study back in the summer demonstrating mild sleep apnea. Patient will try positional therapy. But, if the patient continues to be symptomatic with daytime drowsiness she would benefit from CPAP therapy. 11/28/2023 the patient is here for sick visit. Apparently the beginning of the year she was exposed to her grandson with the flu. Ultimately developed the flu she did call and she did take Tamiflu. Although her respiratory symptoms worsened and she required prednisone and also antibiotics. She will call the office when he stopped the medications to the pharmacy. She continues to have significant asthma chest tightness and wheezing. She is wondering what she can do. She also has chest congestion and difficult to expectorate the phlegm. The patient does have significant wheezing will provide her with Solu-Medrol 125 mg IM x1. The patient also benefit from another course of antibiotics and prednisone. She does have a scheduled bronchoscopy next week for follow-up after thrombo plasty. But at this point I did recommend to the patient that if she continues to have active asthma she should postpone specially if there has no need for any interventions. 03/25/2024 the patient is here for a pulmonary follow-up visit. The patient recently had a upper respiratory illness resulting in an asthma exacerbation. The patient required antibiotics and prednisone. She now has completed the course. She still has hoarseness. She feels some chest congestion but overall better. The patient does not need any additional prednisone antibiotics. If her symptoms worsen she can always consider calling to be reassessed. In the meantime she is changing pharmacy so I sent her all her medicines with the new pharmacy. She also has been using the CPAP at nighttime. The CPAP therapy continues to be affecting beneficial. She does try to use it more than 4 hours a night. She has not been getting supplies. I did send a script to [facility] in order for her to get supplies. I explained to the patient that she needs to make sure she has adequate usage from the CPAP in order to be active with them. In the meantime I did provide her with an N30 eyes small mask that seemed to fit better than the P 10 nasal pillows that was irritating her nares. I will request that new mask to the [facility] [employer] [facility]. The patient also be following up in [place] soon. She is scheduled to have a PFT a CT scan and possibly a bronchoscopy to have an evaluation post thermoplastic. The patient will request her imaging studies in order for us to be able to review them over here. She was a;so evaluated by allergy and had allergy testing. She continues on the Xolair. Otherwise patient is without other complaints. She will follow-up in 3-4 months. If any new issues arise she will call for an earlier assessment. 06/14/2024 the patient is here for a sick visit. Apparently patient was in his usual state health until this weekend started developing some difficulty with her breathing. [place] like her throat was closing up. [place] some difficulty swallowing. Although no sore throat. She continue using her respiratory therapy. As far as exposures she had been out during the day and pureed. There was positive sick contacts although she does not have any Viral syndrome symptoms. She also states that recently her Xolair was increased and she is not sure if that has anything to do with it. She does have an EpiPen although is not up today and is actually . I will send her new EpiPen to the pharmacy. She knows when to use it and how to use it. The patient does have some swelling on the throat area. I do not see any evidence of any angioedema or any edema of the uvula. I also do not appreciate any stridor at this time. Will go ahead and treat her with some prednisone to decrease the inflammatory changes and also will treat her for the possibility of bacterial pharyngitis. The patient be following up with her pipe insulator helper in a couple weeks at which point she can continue to be evaluated as far as symptoms. But at this point she has been on Xolair for a long period of time and she has done well on it and I do not believe that the increasing the medication has any evidence of any adverse effects at this time. 07/26/2024 the patient is here for a pulmonary follow-up visit. She still struggling with her breathing. The patient is been concerned about the Xolair. She feels that she is having reactions to it. We last spoke she had to use an EpiPen twice. The patient also has been having some issue with hoarseness and raspiness of her voice. She has also had chest congestion chest tightness. The patient has required her nebulizer several times a day. She has also continue with respiratory therapy. We did do additional blood work. It looks like her IgE level continues to be elevated. Eosinophil levels okay. Although at this point because of adverse symptoms it would be reasonable to switch her biologic to a different agent. I do believe test part be a good option for her. Dupixent will be a good option to however, her eosinophils are within normal limits. She is also concerned about her tracheobronchomalacia. She feels like it is coming back. She is supposed to be seen by [place] soon. She continues use her CPAP every night. CPAP therapy has been affecting beneficial. She needs use more than 4 hours a night. Therefore will continue with the current respiratory therapy and allergy therapy. The patient has required prednisone multiple times as it is already. She has diabetes. We need to minimize her prednisone use. The patient does have chronic bronchitis so therefore the use of Daliresp at this time will be helpful. 09/30/2024 the patient is here for pulmonary follow-up visit. Overall she is doing fairly well. She is tolerating the test prior. Has not had any reactions like she was having before. Still has raspiness of the voice. Indeed he may be the inhalers. Although they seem to be working well for her. She does have a barium swallow scheduled soon to see if she has any potential reflux that may be contributing to her hoarseness. In the meantime the patient will be followed up at for her yearly follow-up CT scan and likely bronchoscopy. 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 She has regained some back. She is still dealing with that with the outside plant field engineer. The patient will return in 3 4 months. If she has any issues prior to that she will call for an earlier assessment. She is also using his CPAP every night. CPAP therapy has been affecting beneficial she does use it for more than 4 hours a night. She is using a nasal pillow. Although it is irritating her nostrils. Will go ahead and see if we can get her nasal mask instead. She can also try cradle. 01/06/2025 she is here for pulmonary follow-up visit. Overall she is doing fairly well. She did follow-up in [place] and did have a CT scan of the chest and also bronchoscopy. They found that she had a component of tracheomalacia but minimal. And she did have an intervention. They also found that she has some atelectasis to the right base. And felt that this part is affecting her gas exchange. She continues use oxygen. She does have the concentrator at home and has a portable tanks that she gets to [facility]. Although it has been difficult for her to carry because of the difficulty carrying tanks. Therefore will request a portable oxygen concentrator 2 L pulse she can using the meantime. The patient also continues to use her CPAP. The CPAP therapy continues to be affecting beneficial. She does use it for more than 4 hours a night. In addition to that she is on her allergy medication and also her asthma medications she continues to be on test by every month with good results. Right now she is consider having plastic surgery for her abdomen. She needed a preop clearance letter which I provided her otherwise the patient is doing well will follow-up in 2-3 months. 03/01/2025 the patient is here for pulmonary follow-up visit. She has been noticing increasing chest congestion specially after having a bronchoscopy in [place]. She also been a little more hoarse. She feels it is mainly in the middle the chest. She is bringing up some phlegm yellowish in color. Moderate severity. Denies any fevers or chills. After the bronchoscopy she did have some fevers but less typical. She did have significant secretions. She also had a chest x-ray with evidence of atelectasis or opacity in the right lower lobe. She will be following up in [place] soon. Otherwise will repeat the x-ray here to make sure that things are opening up. We could be mucus plugging. Therefore will start her back on azithromycin 3 times a week and also she should be on Daliresp. It was prescribed but she had not been taking it. Explained to her would help with chronic bronchitis and does which she has and it would be helpful for her to do it. The patient also has been using her oxygen. Oxygen therapy has been affecting beneficial. She has had shoulder surgery and now recently elbow surgery and difficult time caring any oxygen tanks. She will benefit from a portable oxygen concentrator that will provide better portability outside of the home. She uses a 2 L pulse with activity. It is likely because of the atelectasis in the opacity in the right base that her gas exchange is impaired and that is what she needs the oxygen. Therefore, she will return in after 6 months of therapy will repeat an x-ray. She also has an appointment to go back to [place]. In the meantime she has been using the CPAP. CPAP therapy has been affecting beneficial. She does use it for more than 4 hours a night. 05/26/2025 the patient is here for a pulmonary follow-up visit. She has had a very eventful few months. She did underwent a abdominal surgery and the surgery was complicated by poor healing and subsequently necrotic tissue. She did required debridement and now has a wound VAC. she has been followed closely by Wound Care. Respiratory garcia the patient has been doing okay although does have a chronic cough. Will try to minimize cough specialists she is trying to heal from the wound. In the meantime she does have her oxygen that she uses with activity. She is requesting a POC. Will have her come in for 6 minute walk test at some point whenever she feels better in order to see if she qualifies for 1. She will continue her current respiratory therapy. Will follow-up in 2-3 months. 07/21/2025 the patient is here for pulmonary follow-up visit. Recently she was hospitalized at [facility] because of her wound in her abdomen after her surgery. Now appears to be healing well and her wound VAC has been removed. And she is being monitor closely. Seems to be doing better. Part, she has been having difficulty with her breathing and her asthma has been more active. Will holding off on prednisone because from pulmonary to heal and she understands the prednisone can affect her healing process. She has had more coughing addition to chest tightness and congestion. The patient has not been using her nebulizer. She does have wheezing on exam and I did provide her with Xopenex and she did very well and her respiratory symptoms did improve in her cough settled some. Therefore, the patient understands that she needs to start using her nebulizer at least twice a day and will provide her with Xopenex in addition to budesonide to allow her to have improvement in respiratory symptoms without the use of prednisone. If she has getting worse and she has no other option then using prednisone then she can start prednisone then. The patient also has been having issues with her swallowing. She does have a problem with a small hiatal hernia also stricture of the GE junction and also achalasia and dysmotility disorder. She has been followed closely with GI and she will be seeing GI at [facility] soon. She understands that this GI issue can ultimately resulting worsening asthma symptoms chest congestion and cough. 08/25/2025 the patient is here for pulmonary follow-up visit. She has multiple complaints. She is still coughing and chest congestion. Also been more winded. She is concerned because she has not gotten any better. She is wondering about getting Solu-Medrol or prednisone. I explained to her that this will affect her healing process with a wound in her abdomen. A rather not give her prednisone if we can avoid it. However if her symptoms worsen we can always try a short course. In the meantime her cough may be due to the fact that she has this narrowing of the esophagus causing to have some degree of reflux. She is scheduled to undergo an endoscopy in the coming weeks which will be helpful. The patient also complaining about her wound having some induration and painful spots. She is not sure if there seromas or if they are little boils of infection. The patient will start doxycycline to treat both the skin and also the respiratory issues. She needs to continue using her nebulizer at least twice a day. And will also assess of blood work specially since she has been complaining of pleuritic right-sided chest pain. Moderate severity. Specially with the surgery and complications we have to make sure that she does not have risk for thromboembolic disease. Therefore will check a D-dimer. If it is positive will have to do a CTA. If the D-dimer is negative will still get a CAT scan but noncontrast to assess her chest discomfort. 09/16/2025 the patient is here for pulmonary follow-up visit. She still complains of dyspnea on exertion and cough and chest tightness and wheezing. Does have wheezing on exam she has continue her respiratory therapy in the budesonide nebs have been helpful. Still having hard time however. The patient has completed a course of doxycycline. I will give her some prednisone for her to take although she does have diabetes so therefore she needs to be very careful. She will take a very quick burst to see if it improves her respiratory capacity. In the meantime she did follow-up with her surgeon regarding her complications of her wound. It appears that she does have some scarring of the tissue likely some cerumen building up. She needs to follow-up with Plastic surgery. She had been seen by Plastic surgery. Sleep at [facility] she should call them and see if she can get an appointment for follow-up. In the meantime she continues to have dyspnea on exertion and need for oxygen supplementation. The patient does need to get a portable oxygen concentrator for better portability outside of the home. We did request from from her [employer]. 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 CJ (obstructive sleep apnea) CJ on CPAP Diabetes Sjogrens syndrome Lesion of bronchus Pneumonia Asthma Tracheobronchomalacia COVID-19 Surgical History (System 02/10/25 @ 16:16 by Diedra Melendez) History of carpal tunnel surgery of left wrist History of bronchoscopy History of endometrial ablation Hx of tubal ligation Family History Mother Asthma Father Diabetes Social History Household Members: Spouse and Children Alcohol intake: never Patient Tobacco Use Status: Former Tobacco user Tobacco use type: Cigarette Years Smoked: 2-3 yrs Second Hand Smoke Exposure: No Review of Systems Const Denies chills, Denies fatigue, Denies fever(s), Denies weight gain and Denies weight loss Eyes Reports as per HPI and Reports change in vision ENT Reports dysphagia, Denies dizziness and Denies lip swelling Card Denies chest pain, Denies leg edema, Denies lightheadedness, Denies palpitations, Denies dyspnea on exertion, Denies orthopnea and Denies other Resp Reports change in phlegm color, Reports chest congestion, Reports cough, Denies dyspnea on exertion and Reports wheezing GI Denies hematochezia, Denies change in stool character and Reports dysphagia Musc Denies abnormal gait, Denies muscle weakness, Denies numbness, Denies radiating pain into limb and Denies tingling Skin/Breast Denies rash Neuro Denies abnormal gait, Denies dizziness, Denies numbness and Denies tingling Psych Denies no additional complaints Endo Denies fatigue and Denies palpitations Anatoliy/Lymph Denies easy bleeding and Denies lymphadenopathy Aller/Immun Denies lip swelling and Reports wheezing Physical Exam Vital Signs: Last Vital Signs Pulse 80 09/16/25 09:06 BP 162/92 H 09/16/25 09:06 Pulse Ox 99 09/16/25 09:06 Oxygen Delivery Method Room Air 09/16/25 09:06 BMI result Body Mass Index 30.6 Const General: alert; No in distress HEENT Head: Yes normocephalic Throat: Yes posterior oropharynx abnormal ( erythematous), Yes postnasal drainage and No uvular edema Neck Neck: Yes normal visual inspection, Yes full ROM, Yes no lymphadenopathy and Yes lymphadenopathy Chest Chest palpation & inspection: normal inspection of the chest Resp Effort & Inspection: normal respiratory effort, Actively coughing and prolonged expiratory phase Auscultation: wheezes and diminished lung sounds Cardio Rate: regular rate Rhythm: regular rhythm Heart sounds: S1 normal heart sound present and S2 normal heart sound present GI Inspection: Yes other (wound vac) Palpation (GI): Soft to palpation Auscultation: normal bowel sounds Skin General skin exam: rashes and/or lesions noted Extrem General: No cyanosis and Yes edema Assessment & Plan Assessment & Plan (1) Asthma: Comment: s/p thermoplasty Code(s): J45.909 - Unspecified asthma, uncomplicated Category: Medical Qualifiers: Asthma complication type: with acute exacerbation Asthma persistence: persistent Asthma severity: severe Qualified Code(s): J45.51 - Severe persistent asthma with (acute) exacerbation (2) Chronic restrictive lung disease: Code(s): J98.4 - Other disorders of lung Category: Medical (3) CJ (obstructive sleep apnea): Code(s): G47.33 - Obstructive sleep apnea (adult) (pediatric) Category: Medical (4) Sjogrens syndrome: Comment: ++SSa dx around 2016 HCQ 2017 Code(s): M35.00 - Sjogren syndrome, unspecified Category: Medical Qualifiers: Sjogren's organ involvement: keratoconjunctivitis Qualified Code(s): M35.01 - Sicca syndrome with keratoconjunctivitis (5) Tracheobronchomalacia: Comment: 2019: treated with tracheoplasty in [place] Code(s): J39.8 - Other specified diseases of upper respiratory tract Category: Medical (6) Atelectasis: Code(s): J98.11 - Atelectasis Category: Medical (7) Hiatal hernia: Code(s): K44.9 - Diaphragmatic hernia without obstruction or gangrene Category: Medical (8) Esophageal stenosis: Code(s): K22.2 - Esophageal obstruction Category: Medical (9) Esophageal dysmotility: Code(s): K22.4 - Dyskinesia of esophagus Category: Medical Plan Prednisone taper Nebulizer in the office continue Tezspire Continue Breo, incruse BUdesonide nebs BID Continue APAP, trial Nasal mask increase [place] to BID x 1 month Xopenex - The patient cannot tolerate albuterol due to significant adverse effects with tachycardia at tremulousness and agitation PPI reflux diet F/U at [facility] continue oxygen: requesting POC 2L/pulse for better portability outside of the home. Difficult time with oxygen tanks with her orthopedic surgeries. Needs to F/U with GI and undergo EGD, likely needs esophageal dilation CT chest F/U 2-3 months Medications: New prednisone PO daily; Take 2 tabs daily x 5 days, then 1 tablet daily x 5 days 15 tabs 0RF 10 days Coding Level of Care Code Est Pt Level 4 (51421) Complex EM visit Add On G2211 Diagnoses Severe persistent asthma with acute exacerbation J45.51 Asthma complication type: with acute exacerbation Asthma persistence: persistent Asthma severity: severe Chronic restrictive lung disease J98.4 CJ (obstructive sleep apnea) G47.33 Sjogren's syndrome with keratoconjunctivitis sicca M35.01 Sjogren's organ involvement: keratoconjunctivitis Tracheobronchomalacia J39.8 Atelectasis J98.11 Hiatal hernia K44.9 Esophageal stenosis K22.2 Esophageal dysmotility K22.4 Time Spent (min) 17
--- OUTSIDE RECORDS SUMMARY | 2025-09-16 09:45 | XMS_ITS | Encounter Summary ---
Author Organization [employer] Address [address] [place] [address] 7 [place] [address] Care Team Providers Care Electrician'S Assistant Name Role Phone Name, Charbel CARRILLO Primary Care Provider Reason for Visit * Reason Onset Date Comments Appointment Request 09/15/2025 Encounter Details Date Type Department Care Team ([facility] st Contact Info) Description 09/15/2025 Telephone [facility] [address] [place] [address] Name, MD Charbel [address] [place] [address] Appointment Request Social History Tobacco Use Types [...] encounter Miscellaneous Notes * Telephone Encounter - Rochelle Chen MA - 09/15/2025 11:06 AM EDT Tc- Patient in regards of message below ,patient was offered an appointment with another provider due to not havening any availability.Patient stated she wants to see her provider that she was called already by someone else for an HDF appointment and since the appointment was not with her pcp she didn't want the appointment. Advised patient I would send a message to RAGHAV to see what could be done but he was fully booked and she agreed to it told patient I would pt her on a recall she agreed on it .Also patient stated she wanted to know when the provider was going to be in walk in because before others would tell her when he is in walk in so she could go and have her appts down there.Inform patient that I didn't have that information she was not happy , but told her I would speak with RAGHAV and she agreed on plan. Tc from pt requesting to schedule a follow up apt Contact pt at [phone] documented in this encounter Plan of Treatment Upcoming Encounters Date Type Department Care Team (Late st Contact Info) Description 09/16/2025 11:00 AM EDT Office Visit [facility] MEDICINE [address] [place] [address] Name, MD [place] [address] 12/16/2025 1:30 PM EST Telemedicine [facility] [address] [place] [address] [phone] Roz Le, ARLINE documented as of this [...] documented as of this encounter Care Teams Electrician'S Assistant Relationship Specialty Start Date End Date Charbel [place] [address] PCP - General Family Medicine 02/[facility]16 [facility] documented as of this encounter
--- OUTSIDE RECORDS SUMMARY | 2025-09-16 09:45 | XMS_ITS | Encounter Summary ---
Author Organization [employer] Address [address] [place] [address] 7t [place] [address] Care Team Providers Care Steel Division Supervisor Name Role Phone Name, Charbel CARRILLO Primary Care Provider [phone] Мария Gudino PharmD Unavailable [phone] Robin Muniz RN Unavailable [phone] Leann Edgar Unavailable Reason for Visit * Reason Onset Date Comments Nurse Triage 03/03/2025 Encounter Details Date Type Department Care Team (Late st Contact Info) Description 03/03/2025 Telephone [facility] MEDICINE [address] [place], [place] [phone] Name, MD Charbel [address] [place], [place] [phone] Nurse Triage Social History Tobacco Use Types [...] PM EDT Tc from pt returning call. Student Support Services Director advise nurse message recommended to increase her dose of gabapentin, continue as needed Celebrex, continue oxycodone as per her DISCHARGING MACHINE OPERATOR agreement. . Pt provided wic hours [...] their conditions. Pt states they went to [facility] and report they [...] needed Celebrex, continue oxycodone as per her DISCHARGING MACHINE OPERATOR agreement. . Pt provided wic hours, ED precautionsreviewed and message forwarded to PCP as an FYI. * Telephone Encounter - Ann-Marie Carroll RN - 03/03/2025 8:53 AM EDT Called pt. No answer. Pt called RE: Requesting MRI of neck due to [facility] are telling pt. She [...] for a new MRI order because visited [facility] and they states that it is arthritis in the neck, which the PT disagrees with. Pt says that the pain and discomfort in the area are not normal. documented in this encounter Plan of Treatment Upcoming Encounters Date Type Department Care Team (Late st Contact Info) Description 09/16/2025 11:00 AM EDT Office Visit [address] [address] Name, MD Charbel [address] [place] [address] 12/16/2025 1:30 PM EST Telemedicine [address] [address] Roz Le RN documented as of this [...] documented as of this encounter Care Teams Steel Division Supervisor Relationship Specialty Start Date End Date Charbel Lyons MD [address] [place] [address] PCP - General Family Medicine 02/26/16 Puia, Мария, PharmD [address] [place] [address] Pharmacist Internal Medicine 04/29/23 07/11/25 Robin Muniz RN [address] [place] [address] Registered Nurse Family Medicine 04/22/25 08/11/25 Leann Edgar 04/22/25 08/11/25 [facility] 04/28/25 documented as of this encounter
--- OUTSIDE RECORDS SUMMARY | 2025-09-16 09:45 | XMS_ITS | Encounter Summary ---
Author Organization [employer] Address [address] [place] [address] 7 [place] [address] Care Team Providers Care Fraternity Adviser Name Role Phone Name, Charbel CARRILLO Primary Care Provider [phone] Reason for Visit * Reason Onset Date Comments Appointment Request 09/14/2025 Encounter Details Date Type Department Care Team ([facility] st Contact Info) Description 09/14/2025 Telephone [facility] MEDICINE [address] [place], [place] [phone] Name, MD Charbel [address] [place] [address] Appointment Request Social History Tobacco Use Types [...] the past 12 months, has t he [employer], gas, oil or water [employer] threatened to shut off services in your [...] Telephone Encounter - Roz Le RN - 09/14/2025 2:54 PM EDT Return TC to patient, Tele REFRACTORY PRODUCTS SUPERVISOR Renewal rescheduled for 09/15/25 @ 10:30am. * Telephone Encounter - Guerrero Sanchez - 09/14/2025 11:27 AM EDT Tc from pt requesting to reschedule missed apt on 09/02 Contact pt at [phone] documented in this encounter Plan of Treatment Upcoming Encounters Date Type Department Care Team ([facility] st Contact Info) Description 09/16/2025 11:00 AM EDT Office Visit [facility] MEDICINE [address] [place] [address] Name, MD Charbel [address] [place] [address] 12/16/2025 1:30 PM EST Telemedicine [facility] MED[facility]INE [address] [place] [address] Roz Le, RN documented as of this [...] documented as of this encounter Care Teams Fraternity Adviser Relationship Specialty Start Date End Date Name, [place] [address] PCP - General Family Medicine 02/[facility]16 [facility] documented as of this encounter
--- OUTSIDE RECORDS SUMMARY | 2025-09-16 09:45 | XMS_ITS | Encounter Summary ---
Author Organization [employer] Address [address] [place] [address] 7 [place] [address] Care Team Providers Care Manager Of Maintenance Name Role Phone Name, Charbel CARRILLO Primary Care Provider [phone] Reason for Visit * Reason Comments Med Refill Encounter Details Date Type Department Care Team ([facility] Contact Info) Description 08/31/2025 Refill [facility] MEDICINE [address] [place], [place] [phone] Name, MD Charbel [address] [place] [address] Social History Tobacco Use Types Packs/Day Years [...] Description 09/16/2025 11:00 AM EDT Office Visit [facility] MEDICINE [address] [place] [address] Name, MD Charbel [address] [place] [address] 12/16/2025 1:30 PM EST Telemedicine [address] [address] Roz Le, ARLINE documented as of this [...] as of this encounter Care Teams Manager Of Maintenance Relationship Specialty Start Date End Date Name, MD Charbel [address] [place] [address] PCP - General Family Medicine 02/26/16 [facility] 04/28/25 documented as of this encounter
--- OUTSIDE RECORDS SUMMARY | 2025-09-16 09:45 | XMS_ITS | Encounter Summary ---
Author Organization [email or web address] Address [address] [place] [address] 7 [place] [address] Care Team Providers Care Erector Operator Name Role Phone Name, Charbel CARRILLO Primary Care Provider [phone] Reason for Visit * Reason Onset Date Comments Med Refill 09/15/2025 PARTS SALES REPRESENTATIVE Agreement renewed 09/15/2025 Encounter Details Date Type Department Care Team ([facility] st Contact Info) Description 09/15/2025 Refill [facility] MED[facility]INE [address] [place] [address] Roz Le, pest control worker pain syndrome Social History Tobacco Use Types [...] Telephone Encounter - Roz Le RN - 09/15/2025 10:35 AM EDT Pt had Tele PARTS SALES REPRESENTATIVE Renewal appointment today BPI completed on: 09/15/2025 , pain severity score: 9, activity interference score: 9 BPI completed on: 05/30/2025 , pain severity score: 8, activity interference score: 9 documented in this encounter Plan of Treatment Upcoming Encounters Date Type Department Care Team (Late st Contact Info) Description 09/16/2025 11:00 AM EDT Office Visit [facility] [address] [place] [address] Name, MD Charbel [address] [place] [address] 12/16/2025 1:30 PM EST Telemedicine [facility] [address] [place] [address] Roz Le, RN documented as of this [...] documented as of this encounter Care Teams Erector Operator Relationship Specialty Start Date End Date Name, MD Charbel [address] [place] [address] PCP - General Family Medicine 02/26/[address] [facility] 04/28/25 documented as of this encounter
--- OUTSIDE RECORDS SUMMARY | 2025-09-16 09:45 | XMS_ITS | Encounter Summary ---
Author Organization [email or web address] Address [address] [place] [address] 7t [place] [address] Care Team Providers Care Thrill Performer Name Role Phone Name, Charbel CARRILLO Primary Care Provider [phone] Encounter Details Date Type Department Care Team (Latest Contact Info) Description 09/15/2025 Travel Social History Tobacco Use Types Packs/Day [...] Upcoming Encounters Date Type Department Care Team ([facility] st Contact Info) Description 09/16/2025 11:00 AM EDT Office Visit [address] [address] Charbel Lyons MD [address] [place] [address] 12/16/2025 1:30 PM EST Telemedicine [address] [phone] Roz Le RN documented as of this [...] documented as of this encounter Care Teams Thrill Performer Relationship Specialty Start Date End Date Charbel Lyons MD [address] [place] [address] PCP - General Family Medicine 02/26/16 [facility] 04/28/25 documented as of this encounter
--- OUTSIDE RECORDS SUMMARY | 2025-09-16 09:45 | XMS_ITS | Encounter Summary ---
Author Organization [employer] Address [address] [place] [address] Care Team Providers Care Crossword Puzzle Maker Name Role Phone Charbel Lyons MD Primary Care Provider [phone] Reason for Referral * Imaging (Routine) - Authorized Specialty Diagnoses / Procedures Referred By Contac t Referred To Contact Radiology Diagnoses Disruption of external surgical wound, subsequent encounter Wound dehiscence Wound seroma Procedures CT Abdomen Pelvis w/o Contrast NameCharbel MD [address] [place] [address] Phone: tel: fax: [address] Phone: tel: fax: Referral ID Status Reason Start Date Expiration Date V isits Requested Visits Authorized [id number] Authorized 09/15/2025 09/15/2026 1 1 Encounter Details Date Type Department Care Team (Late st Contact Info) Description 09/15/[address] [facility] MED[facility]INE [address] [place] [address] [phone] Charbel Lyons MD [address] [place] [address] [phone] Disruption of external surgical wound, subsequent encounter (Primary Dx); Wound dehiscence; Wound seroma Social History Tobacco Use Types Packs/Day Years [...] as of this encounter Progress Notes * Charbel Lyons MD - 09/15/2025 10:03 AM EDT I got the note from [facility] wound clinic I will order CT of the abdomen If she is having a lot of pain, or redness and drainage from the wound now I would suggest to return to [facility] ER where she was evaluated and treated in the past for a would seroma * Dalila Álvarez RN - 09/15/2025 10:03 AM EDT Images from the original note were not included. TC x 2 placed to pt via BLS facer operator (Mega ID#[id number]) to inform and advise of below PCP message. No answer, unable to LVM as voicemail box is full and not accepting messages at this time. Dung RN to re-attempt in PM. Charbel Lyons MD EN 09/15/25 10:04 AM Note I got the note from [facility] wound clinic I will order CT of the abdomen If she is having a lot of pain, or redness and drainage from the wound now I would suggest to return to [facility] ER where she was evaluated and treated in the past for a would seroma * Dalila Álvarez RN - 09/15/2025 10:03 AM EDT Images from the original note were not included. Per review of chart, pt scheduled for PCP follow up tomorrow 09/16/25. TC x 2 placed to pt via BLS facer operator (Vitaliy Starks#[id number]) to inform and advise of below PCP message. No answer, unable to LVM asvoicemail box is full and not accepting messages at this time. Message forwarded to PCP as an FYI on encounter titled Referral from yesterday 09/14/25. Charbel Lyons MD EN 09/15/25 10:04 AM Note I got the note from [facility] wound clinic I will order CT of the abdomen If she is having a lot of pain, or redness and drainage from the wound now I would suggest to return to [facility] ER where she was evaluated and treated in the past for a would seroma documented in this encounter Plan of Treatment Upcoming Encounters Date Type Department Care Team (Late st Contact Info) Description 09/16/2025 11:00 AM EDT Office [address] [facility] [address] [place] [address] Name, [place] [address] 12/16/2025 1:[address] [facility] [address] [place] [address] [phone] Roz Le, ARLINE Scheduled Orders Name Type Priority Associated Diagnoses Orde r Schedule CT Abdomen Pelvis w/o Contrast Imaging Routine Disruption of external surgical wound, subsequent encounter Wound dehiscence Wound seroma Expected: 09/15/2025, Expires: 09/15/2026 documented as of this encounter Goals Goal [...] as of this encounter Visit Diagnoses Diagnosis Disruption of external surgical wound, subsequent encounter- Primary Wound dehiscence Disruption of external operation (surgical) wound Wound seroma Seroma complicating a procedure documented in this encounter Additional Health Concerns Assessment Noted Time PHQ-9 Depression Total Score: 0 03/22/20 24 1:45 PM EDT documented as of this encounter Care Teams Crossword Puzzle Maker Relationship Specialty Start Date End Date Name, [place] [address] PCP - General Family Medicine 02/26/16 [facility] 04/28/25 documented as of this encounter
--- OUTSIDE RECORDS SUMMARY | 2025-09-16 09:45 | XMS_ITS | Encounter Summary ---
Author Organization [employer] Address [address] [place] [address] 7t [place] [address] Care Team Providers Care Emt Intermediate Name Role Phone Name, Charbel CARRILLO Primary Care Provider [phone] Мария Gudino PharmD Unavailable [phone] Robin Muniz RN Unavailable Leann Edgar Unavailable Reason for Visit * Reason Comments Med Refill Encounter Details Date Type Department Care Team (Late st Contact Info) Description 02/20/2024 Refill [facility] MEDICINE [address] [place] [address] Name, MD Charbel [address] [place], [place] [phone] Social History Tobacco Use Types Packs/Day Years [...] Description 09/16/2025 11:00 AM EDT Office Visit [facility] MEDICINE [address] [place] [address] Name, MD Charbel [address] [place] [address] 12/16/2025 1:30 PM EST Telemedicine [address] [address] Roz Le RN documented as of this [...] documented as of this encounter Care Teams Emt Intermediate Relationship Specialty Start Date End Date Charbel Lyons MD [address] [place] [address] PCP - General Family Medicine 02/26/16 Puia, Мария, PharmD [address] [place] [address] Pharmacist Internal Medicine 04/29/23 07/11/25 Robin Muniz RN [address] [place] [address] Registered Nurse Family Medicine 04/22/25 08/11/25 Leann Edgar 04/22/25 08/11/25 [facility] 04/28/25 documented as of this encounter
--- OUTSIDE RECORDS SUMMARY | 2025-09-16 09:45 | XMS_ITS | Encounter Summary ---
Author Organization [employer] Address [address] [place] [address] 7 [place] [address] Care Team Providers Care Reliability Technician Name Role Phone Name, Charbel CARRILLO Primary Care Provider [phone] Reason for Visit * Reason Onset Date Comments Referral 09/14/2025 Encounter Details Date Type Department Care Team ([facility] st Contact Info) Description 09/14/2025 Telephone [facility] [address] [place], [place] [phone] Name, MD Charbel [address] [place] [address] Referral Social History Tobacco Use Types Packs/Day [...] the past 12 months, has t he [employer], gas, oil or water [employer] threatened to shut off services in your [...] encounter Miscellaneous Notes * Telephone Encounter - Dalila Álvarez RN - 09/15/2025 11:53 AM EDT Images from the original note were not included. Per review of chart, pt scheduled for PCP follow up tomorrow 09/16/25. TC x 2 placed to pt via S conference interpreter (Vitaliy Starks#[id number]) to inform and advise of below PCP message. No answer, unable to LVM asvoicemail box is full and not accepting messages at this time. Charbel Lyons MD EN 09/15/25 10:04 AM Note I got the note from [facility] wound clinic I will order CT of the abdomen If she is having a lot of pain, or redness and drainage from the wound now I would suggest to return to [facility] where she was evaluated and treated in the past for a would seroma * Telephone Encounter - Dalila Álvarez RN - 09/15/2025 10:34 AM EDT Images from the original note were not included. TC x 2 placed to pt via BLS conference interpreter (Mega ID#[id number]) to inform and advise of below PCP message. No answer, unable to LVM as voicemail box is full and not accepting messages at this time. Dung RN to re-attempt in PM. Charbel Lyons MD EN 09/15/25 10:04 AM Note I got the note from [facility] [place] wound clinic I will order CT of the abdomen If she is having a lot of pain, or redness and drainage from the wound now I would suggest to return to [facility] where she was evaluated and treated in the past for a would seroma * Telephone Encounter - Dalila Álvarez RN - 09/15/2025 9:10 AM EDT Images from the original note were not included. Notes from [facility] note available to print through [employer]. TC placed to [facility] [place] [place] HIM department to obtain Wound Care notes per below PCP request. On hold for 15 minutes. TC placed to [facility] to request most recent notes. Spoke with staff who states they will fax over the notes. Provided fax number [phone]. Awaiting fax for provider review. Notes received and given to PCP. Charbel Lyons MD to [facility] Blue Team Nurses (Selected Message) EN 09/15/25 9:02 AM Can you get me the last note from [facility]? * Telephone Encounter - Dalila Álvarez RN - 09/14/2025 2:07 PM EDT TC placed to pt via BLS conference interpreter (Felipe ID#[id number]) regarding request for U/S of the abdomen at [facility] [place] [place]. Pt reports they were advised by their wound care doctor to request an abdominal ultrasound as put has a lump in stomch that is painful. Pt reports wound care doctor advised pt to contact PCP to place order to determine if it is fibrosis or a seroma. Pt reports the ultrasound needs to be ordered so they can determine if it is a seroma and if it will need to be drained. Advised pt they may need to be seen for an appointment for provider to place an order, but will send a message to PCP for review. Pt reports they will not see any other provider as they will not do anything for her. Pt reports they were seen by other providers in the past and they all said they need to consult with before doing anything. Pt requesting follow up with PCP as well. Advised message was sent to MA's and they should be contacting pt to schedule follow up as no upcoming PCP availability for follow up. Pt verbalized understanding and denies questions at this time. Message forwarded to PCP to review and advise. * Telephone Encounter - Guerrero Sanchez - 09/14/2025 11:25 AM EDT Tc from pt requesting a referral for a U/S of abdomin at [facility] [place] [place] Contact pt at [phone] (ghanaian) documented in this encounter Plan of Treatment Upcoming Encounters Date Type Department Care Team (Late st Contact Info) Description 09/16/2025 11:00 AM EDT Office Visit [facility] [address] [place] [address] Name, MD Charbel [address] [place] [address] 12/16/2025 1:30 PM EST Telemedicine [address] [address] Roz Le, ARLINE documented as of this [...] documented as of this encounter Care Teams Reliability Technician Relationship Specialty Start Date End Date Name, MD Charbel [address] [place] [address] PCP - General Family Medicine 02/26/16 [facility] 04/28/25 documented as of this encounter
--- OUTSIDE RECORDS SUMMARY | 2025-09-16 09:45 | XMS_ITS | Encounter Summary ---
Author Organization [employer] Address [address] [place] [address] 7 [place] [address] Care Team Providers Care Gift Consultant Name Role Phone Name, Charbel CARRILLO Primary Care Provider [phone] Reason for Visit * Reason Onset Date Comments Appointment Request 09/14/2025 Encounter Details Date Type Department Care Team ([facility] st Contact Info) Description 09/14/2025 Telephone [facility] [address] [place], [place] [phone] Name, MD Charbel [address] [place] [address] Appointment Request Social History Tobacco Use Types [...] the past 12 months, has t he [employer], gas, oil or water [employer] threatened to shut off services in your [...] encounter Miscellaneous Notes * Telephone Encounter - Guerrero Sanchez - 09/14/2025 11:29 AM EDT Tc from pt requesting to schedule a follow up apt Contact pt at [phone] documented in this encounter Plan of Treatment Upcoming Encounters Date Type Department Care Team (Late st Contact Info) Description 09/16/2025 11:00 AM EDT Office Visit [facility] [address] [place] [address] Name, MD Charbel [address] [place] [address] 12/16/2025 1:30 PM EST Telemedicine [facility] [address] [place] [address] Roz Le, ARLINE documented as of this [...] documented as of this encounter Care Teams Gift Consultant Relationship Specialty Start Date End Date Name, MD Charbel [address] [place] [address] PCP - General Family Medicine 02/26/16 [facility] 04/28/25 documented as of this encounter
--- OUTSIDE RECORDS SUMMARY | 2025-09-16 09:45 | XMS_ITS | Encounter Summary ---
Author Organization [employer] Address [address] [place] [address] 7 [place] [address] Care Team Providers Care Molding Cutter Name Role Phone Name, Charbel CARRILLO Primary Care Provider [phone] Мария Gudino PharmD Unavailable [phone] Robin Muniz RN Unavailable [phone] Leann Edgar Unavailable Reason for Visit * Reason Onset Date Comments Prior Authorization 01/06/2024 Encounter Details Date Type Department Care Team (Late st Contact Info) Description 01/06/2024 Telephone [facility] [address] [place] [address] Name, MD Charbel [address] [place], [place] [phone] Prior Authorization Social History Tobacco Use Types [...] 01/13/2024 10:48 AM EST Tc from [facility] calling in regards to the message below states needs PA so they can schedule a appt with the patient * Telephone Encounter - Lucio Edgar - 01/06/2024 10:44 AM EST Tc from [facility] working with [facility] stating pt needs prior authorization for Ct Scan If any questions you can contact [facility] [phone] documented in this encounter Plan of Treatment Upcoming Encounters Date Type Department Care Team (Late st Contact Info) Description 09/16/2025 11:00 AM EDT Office Visit [facility] [address] [place] [address] Name, MD Charbel [address] [place] [address] 12/16/2025 1:30 PM EST Telemedicine [facility] [address] [place] [address] Roz Le, ARLINE documented as of this encounter Goals Goal Patient Goal Type Associated Problems Recent Progress Patient-Stated? Author Record your blood pressure once per day Blood Pressure No Мария Gudino, PharmD Blood Pressure < 140/90 Blood Pressure 130/90( 025 3:47 PM EDT) No Мария Gudino PharmTereza documented as of this encounter Visit Diagnoses Not on filedocumented in this encounter Additional Health Concerns Assessment Noted Time PHQ-9 Depression Total Score: 0 10/23/20 22 3:25 PM EST documented as of this encounter Care Teams Molding Cutter Relationship Specialty Start Date End Date Name, MD Charbel [address] [place] [address] PCP - General Family Medicine 02/26/16 Мария Gudino PharmD [address] [place] [address] Pharmacist Internal Medicine 04/29/23 07/11/25 Robni Muniz RN [address] [place] [address] Registered Nurse Family Medicine 04/22/25 08/11/25 Leann Edgar 04/22/25 08/11/25 [facility] 04/28/25 documented as of this encounter
--- OUTSIDE RECORDS SUMMARY | 2025-09-16 09:45 | XMS_ITS | Encounter Summary ---
Author Organization [employer] Address [address] [place] [address] 7 [place] [address] Care Team Providers Care Box Printing Machine Operator Name Role Phone Name, Charbel CARRILLO Primary Care Provider [phone] Robin Muniz RN Unavailable [phone] Leann Edgar Unavailable Reason for Visit * Reason Comments Med Refill Encounter Details Date Type Department Care Team (Late st Contact Info) Description 08/03/2025 Refill [facility] [address] [place], [place] [phone] Name, MD Charbel [address] [place], [place] [phone] Social History Tobacco Use Types Packs/Day Years [...] the past 12 months, has t he [employer], gas, oil or water company threatened to [...] Description 09/16/2025 11:00 AM EDT Office Visit [facility] [address] [place] [address] Name, MD Charbel [address] [place] [address] 12/16/2025 1:30 PM EST Telemedicine [facility] [address] [place] [address] Rzo Le RN documented as of this encounter [...] documented as of this encounter Care Teams Box Printing Machine Operator Relationship Specialty Start Date End Date Name, MD Charbel [address] [place] [address] PCP - General Family Medicine 02/26/16 Robin Muniz RN [address] [place] [address] Registered Nurse Family Medicine 04/22/25 08/11/25 Leann Edgar 04/22/25 08/11/25 [facility] documented as of this encounter
--- OUTSIDE RECORDS SUMMARY | 2025-09-16 09:45 | XMS_ITS | Encounter Summary ---
Author Organization [employer] Address [address] [place] [address] 7t [place] [address] Care Team Providers Care Assistant Clinical Nurse Manager Name Role Phone Name, Charbel CARRILLO Primary Care Provider [phone] Мария Gudino PharmD Unavailable Robin Muniz RN Unavailable [phone] Leann Edgar Unavailable Encounter Details Date Type Department Care Team (Late st Contact Info) Description 04/21/[address] [facility] [address] [place], [place] [phone] Name, MD Charbel [address] [place], [place] [phone] Social History Tobacco Use Types Packs/Day Years [...] Description 09/16/2025 11:00 AM EDT Office Visit [address] [address] Name, MD Charbel [address] [place] [address] 12/16/2025 1:30 PM EST Telemedicine [address] [address] Roz Le, ARLINE documented as of this encounter Visit Diagnoses Not on filedocumented in this encounter Additional Health Concerns Assessment Noted Time PHQ-9 Depression Total Score: 0 10/23/20 3:25 PM EST documented as of this encounter Care Teams Assistant Clinical Nurse Manager Relationship Specialty Start Date End Date Name, MD Charbel [address] [place] [address] PCP - General Family Medicine 02/26/16 Мария Gudino PharmD [address] [place] [address] Pharmacist Internal Medicine 04/29/23 07/11/25 Robin Muniz, ARLINE [address] [place] [address] Registered Nurse Family Medicine 04/22/25 08/11/25 Leann Edgar 04/22/25 08/11/25 [facility] documented as of this encounter
--- OUTSIDE RECORDS SUMMARY | 2025-09-16 09:45 | XMS_ITS | Encounter Summary ---
Author Organization [employer] Address [address] [place] [address] 7 [place] [address] Care Team Providers Care Office Technology Instructor Name Role Phone Name, Charbel CARRILLO Primary Care Provider [phone] Мария Gudino PharmD Unavailable [phone] Robin Muniz RN Unavailable [phone] Leann Edgar Unavailable Reason for Visit * Reason Onset Date Comments Referral 03/24/2023 Encounter Details Date Type Department Care Team (Late st Contact Info) Description 03/24/2023 Telephone [facility] [address] [place] [address] Name, MD Charbel [address] [place], [place] [phone] Referral Social History Tobacco Use Types Packs/Day [...] encounter Miscellaneous Notes * Telephone Encounter - Nayanharshil Hatchos - 03/24/2023 9:05 AM EDT Tc from pt requesting a new updated referral to be [facility] stated needs it before her appt on april 082022 Please contact pt at [phone] documented in this encounter Plan of Treatment Upcoming Encounters Date Type Department Care Team (Late st Contact Info) Description 09/16/2025 11:00 AM EDT Office Visit [facility] [address] [place] [address] Name, MD Charbel [address] [place] [address] 12/16/2025 1:30 PM EST Telemedicine [facility] [address] [place] [address] Roz Le, ARLINE documented as of this encounter Visit Diagnoses Not on filedocumented in this encounter Additional Health Concerns Assessment Noted Time PHQ-9 Depression Total Score: 0 10/23/20 22 3:25 PM EST documented as of this encounter Care Teams Office Technology Instructor Relationship Specialty Start Date End Date NameCharbel MD [address] [place] [address] PCP - General Family Medicine 02/26/16 Мария Gudino, FarihaD [address] [place] [address] Pharmacist Internal Medicine 04/29/23 07/11/25 Robin Muniz, ARLINE [address] [place] [address] Registered Nurse Family Medicine 04/22/25 08/11/25 Leann Edgar 04/22/25 08/11/25 [facility] 04/28/25 documented as of this encounter
--- OUTSIDE RECORDS SUMMARY | 2025-09-16 09:45 | XMS_ITS | Encounter Summary ---
Author Organization [employer] Address [address] [facility] 7t [place] [address] Care Team Providers Care Bark Scaler Name Role Phone Name, Charbel CARRILLO Primary Care Provider [phone] Мария Gudino PharmD Unavailable [phone] Robin Muniz RN Unavailable [phone] Leann Edgar Unavailable Reason for Visit * Reason Comments Med Refill Encounter Details Date Type Department Care Team (Late st Contact Info) Description 01/07/2025 Refill [facility] [address] [place] [address] Name, MD Charbel [address] [place] [address] Vomiting and diarrhea Social History Tobacco Use [...] Description 09/16/2025 11:00 AM EDT Office Visit [facility] [address] [place] [address] Name, MD Charbel [address] [place] [address] 12/16/2025 1:30 PM EST Telemedicine [address] [address] Roz Le, ARLINE documented as of this encounter Goals Goal Patient Goal Type Associated Problems Recent Progress Patient-Stated? Author Record your blood pressure once per day Blood Pressure No Мария Gudino, PharmD Blood Pressure < 140/90 Blood Pressure 130/90(2024 3:47 PM EDT) No Мария Gudino PharmTereza Patient will adhere to medication regimen [...] documented as of this encounter Care Teams Bark Scaler Relationship Specialty Start Date End Date Name, MD Charbel [address] [place] [address] PCP - General Family Medicine 02/26/16 Мария Gudino PharmD [address] [place] [address] Pharmacist Internal Medicine 04/29/23 07/11/25 Robin Muniz RN [address] [place] [address] Registered Nurse Family Medicine 04/22/25 08/11/25 Leann Edgar 04/22/25 08/11/25 [facility] 04/28/25 documented as of this encounter
--- OUTSIDE RECORDS SUMMARY | 2025-09-16 09:45 | XMS_ITS | Clinical Summary ---
Author Organization [employer] Address [address] [place] [address] 7 [place] [address] Care Team Providers Care Cylinder Steamer Name Role Phone Name, Charbel CARRILLO Primary Care Provider [phone] Allergies Active Allergy Reactions Criticality Noted Date [...] Unknown Level of certainty: Moderately Certain Shellfish Protein-Containing Drug Products Swelling 02/24/2015 Medications buPROPion XL (Wellbutrin [...] exceed 200mg in 24 hours Active Umeclidinium Tranquillity (Incruse Ellipta) 62.5 MCG/ACT aerosol powder Inhale [...] 150 mg by mouth in the morning. Active Blood Pressure kit Use daily 1 [...] 6 TIMES A DAY 200 each 5 Active biotin 5000 MCG tablet Take 1 tablet by mouth in the morning. Active melatonin 5 MG tablet Take 1 [...] hyperglycemia, with long-term current use of insulin (HCC) Take 1 tablet (81 mg) by mouth [...] 1 Active Blood Glucose Monitoring Suppl (FreeStyle [place] Lite) w/Device kit Use to test blood sugar 3 times daily 1 kit Active FreeStyle lancets USE ONE LANCET THREE TIMES DAILY 100 each 11 Active loratadine (Claritin) 10 MG tablet Take 1 tablet by mouth Once per day. 024 Active sucralfate (Carafate) 1 g tabletIndications :Vomiting [...] hyperglycemia, with long-term current use of insulin (HCC),Hyperlipide raza, unspecified hyperlipidemia type TAKE 1 TABLET(40 MG) [...] day. 30 tablet 11 025 2025 Active naloxone (Narcan) 4 mg/0.1 mL nasal sprayIndications: Chronic pain syndrome Administer 1 spray (4 mg) into affected nostril(s) if needed for opioid reversal. May repeat every 2-3 minutes if needed, alternating nostrils, until medical assistance becomes available. 2 each 3 025 2025 Active oxyCODONE (Roxicodone) 10 MG immediate release tabletIndications :Chronic pain syndrome Take 1 tablet (10 mg) by mouth every 6 (six) hours if needed for severe pain for up to 28 days. Do not start before September 17, 2025. 112 tablet 025 2024 Active oxyCODONE (Roxicodone) 10 MG immediate release tabletIndications :Chronic pain syndrome Take 1 tablet (10 mg) by mouth every 6 (six) hours if needed for severe pain for up to 28 days. Do not start before July 21, 2025. 112 tablet 025 2024 Discontinued(R eorder (will not trigger notification to Pharmacy)) oxyCODONE (Roxicodone) 10 MG immediate release tabletIndications [...] Entrapment of right ulnar nerve at elbow 025 Carpal tunnel syndrome of right wrist 12/14/2024 Retinal vein occlusion of right eye 10/07/2024 Overview (10/07/2024): . Asthma 10/01/2024 Long-term current use of opiate analgesic 2023 Overview (07/27/2024): Medication: oxycodone 10mg Q6H PRN Indication: cervical spondylosis, fibromyalgia, chronic right knee pain Last SOLUTION MANAGER Agreement: 10/23/23 Additional considerations/risk factors: multiple sedating [...] Used to be seen for PM at [facility], got injections, not better, ref to [...] on 09 January 2016 14:38 Encounter info: [id number], [facility], [facility], 01/08/2016 - 01/15/2016 * Final Report * Reason For Exam rt shoulder pain RCT;rt shoulder pain RCT RESULT: MRI Joint Ext Upper W/O Contrast Right [facility] VISIT NUMBER :[id number] Patient Name : Sade Izaguirre Date of : 1970 Date of Exam : 01/08/2016 Referring Physician : GINA CROFT [address], Attn: [place] [address] Exam : MR - SHOULDER (C-) CPT 89419 - RIGHT Room Description : [facility] 2 1.5 Technique : Ax [...] Used to be seen for PM at [facility], got injections, not better, ref to [...] on 09 January 2016 14:38 Encounter info: [id number], [facility], 01/08/2016 - 01/15/2016 * Final Report * Reason For Exam rt shoulder pain RCT;rt shoulder pain RCT RESULT: MRI Joint Ext Upper W/O Contrast Right [facility] VISIT NUMBER :[id number] Patient Name : Sade Izaguirre Date of : 1970 Date of Exam : 01/08/2016 Referring Physician : GINA CROFT/[address], Attn: [place] [address] Exam : MR - SHOULDER (C-) CPT 60904 - RIGHT Room Description : [facility] 2 1.5 Technique : Ax [...] knee 02/05/2023 Overview (02/05/2023): Severe, follows at [facility] Was told too young for TKR Urinary [...] unspecified 09/24/2017 Moderate manic bipolar I disorder (CMS/HCC) 06/17 Non-specific colitis 05/13/2016 CJ (obstructive sleep apnea) [...] Encounters Date Type Department Care Team Description 09/15/2025 10:30 AM EDT Telemedicine [facility] [address] [place] [address] Roz Le, RN Long-term current use of opiate analgesic 09/15/2025 Telephone 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 09/15/2025 Travel 09/15/2025 Orders Only [facility] [address] [place] [address] Charbel Lyons MD Disruption of external surgical wound, subsequent encounter (Primary Dx); Wound dehiscence; Wound seroma 09/14/2025 Telephone [facility] [address] [place] [phone] Charbel Lyons MD Appointment Request 09/14/2025 Telephone [facility] [address] [place] [address] Charbel Lyons MD Appointment Request 09/14/2025 Telephone [facility] [address] [place] [address] Charbel Lyons MD Referral 09/02/2025 Telephone [facility] [address] [place], [place] [phone] Roz Le, RN NCNS for Tele SOLUTION MANAGER Renewal appt today 08/31/2025 Refill [facility] [address] [place] [address] Charbel Lyons MD 08/25/2025 Orders Only GENERIC EXTERNAL DATA DEPARTMENT Provider, Generic External Data 08/23/[address] [address] Roz Le, RN SOLUTION MANAGER Renewal forms 08/19/2025 Refill [facility] [address] [place] [address] Charbel Lyons MD Chronic pain syndrome 08/10/2025 Telephone [facility] [address] [place] [address] Charbel Lyons MD Durable Medical Equipment 08/03/2025 Travel 08/03/2025 Refill [facility] [address] [place] [address] Charbel Lyons MD 08/01/2025 10:15 AM EDT Telemedicine [facility] [address] [place] [address] Aracely Mckeon RN Abdominal pain, unspecified abdominal location 08/01/2025 Travel 07/20/2025 Telephone [facility] [address] [place] [address] Charbel Lyons MD Durable Medical Equipment 07/20/[address] [address] Charbel Lyons MD Med Refill 07/20/2025 Refill [facility] [address] [place] [address] Charbel Lyons MD Chronic pain syndrome 07/12/[address] [phone] Мария Gudino, PharmD 07/11/2025 Orders Only [facility] [address] [place] [phone] Provider, MD Fantasma 07/11/2025 Patient Outreach [address] [phone] Charbel Lyons MD 07/08/[address] [phone] Charbel Lyons MD No Show (Pt no show to follow up with Name 07/08/2025. No show letter mailed.) 07/08/2025 Patient Outreach [address] [place] [address] NameCharbel MD Pre-visit Planning (HDF unscheduled) 07/07/2025 Patient Outreach [address] [address] Charbel Lyons MD 07/07/[address] [address] Nick Magdaleno MA chart prep 07/05/2025 Patient Outreach [address] [address] NameCharbel MD 07/01/2025 Travel 06/28/[address] [address] Charbel Lyons MD Durable Medical Equipment 06/21/[address] [address] Charbel Lyons MD Chronic pain syndrome 06/21/[address] [address] Charbel Lyons MD Med Refill from Last 3 Months Immunizations Immunization Administration Dates Next Due HepB-CpG 07/07/2023,04/01/2023 Influenza injectable quadriv alent IIV4 with preservative 08/18/2018,09/24/2017,08/09/2016 Influenza injectable quadriv alent preservative free 08/27/2023,08/06/2022,10/23/2021,08/19,08/17/2019,10/09/2014,12/05/2009 ,08/08/2008,09/30/2006 Influenza, IIV3, injectable 10/23/2021,1 ,08/17/2019,08/18,09/24/2017,08/09/2016,10/09/2014 ,12/05/2009,08/08/2008,09/30/2006 Influenza, Unspecified 10/23/2021,2019,08/17/2019,08/18,09/24/2017,08/09/2016 Influenza, seasonal, injecta ble, preservative free 08/17/2024 Moderna Covid-19 Vaccine 12+ 08/26/2022, 03/14/2022,11/13/2021,02/22,01/25/2021 Moderna Covid-19 Vaccine 6+ Bivalent 08/26/2022 Novel [id number], preservative-free 12/05/2009 PPD Test 12/10/2006 Pfizer Covid-19 [...] Description 09/16/2025 11:00 AM EDT Office Visit [facility] [address] [place] [phone] Name, MD Charbel [address] [place] [address] 12/16/2025 1:30 PM EST Telemedicine [facility] [address] [place] [address] Roz Le, RN Health Maintenance Due Date Last Done Comments CT Colonography 1970 FIT DNA/Cologuard 1970 FIT 1970 FOBT 1970 Sigmoidoscopy 1969 Diabetes: Foot Exam 1979 Pap Smear 1990 Cervical Cancer Screening 1999 HPV/Cotest 1999 Eye Exam 03/11/2025 03/11/2024 Depression Screening 03/22/2025 03/22/2024, 03/22/20 24 Lipid Panel 05/17/2025 05/17/2024, 02/16, 06/26/2021 Mammogram 06/17/2025 06/17/2024 COVID-19 Vaccine ( season) 2025 09/24/2023, 08/26/2022, 08/26/2022, Additional history exists Influenza Vaccine (#1) 2025 , 08/27/2023, 08/06/2022, Additional history exists SDOH Screening [...] pressure once per day Blood Pressure No Puia Мария, PharmD Blood Pressure < 140/90 Blood Pressure 130/90(2024 3:47 PM EDT) No Puia, Мария, PharmD Patient will adhere to medication regimen General No Puia, Мария, PharmD LDL Calc < 70 Result Component No Puia Мария, PharmD Note: Per ADA for primary prevention of ASCVD Procedures Procedure Name Priority Date/Time Associated Diagnosis Comments BASIC METABOLIC PANEL Routine 08/25/2025 2:22 PM EDT HEPATIC FUNCTION PANEL Routine 08/25/2025 2:22 PM EDT SED RATE BY MODIFIED WESTERGREN Routine 08/25/2025 2:22 PM EDT D DIMER HIGH SENSITIVITY Routine 08/25/2025 2:22 PM EDT CBC WITH AUTO DIFFERENTIAL Routine 08/25/2025 2:[address] ABDOMEN PELVIS WO CONTRAST Routine 07/10/2025 10:04 AM EDT HIV 1/2 ANTIGEN/ANTIBODY, FOURTH GENERATION W/RFL Routine 03/18/2025 3:42 PM EDT Preop examination HEMOGLOBIN A1C Routine 03/18/2025 3:42 PM EDT Preop examination HEPATITIS PANEL, GENERAL Routine 07/20/2024 8:40 AM EDT MAMMOGRAPHY Routine 06/17/2024 LIPID PANEL, STANDARD Routine 05/17/2024 10:55 AM EDT DIABETES EYE EXAM Routine 03/11/2024 COLONOSCOPY Routine 12/15/2019 from Last 3 Months or Most Recently Relevant to Health Maintenance Results * D Dimer High Sensitivity (08/25/2025 2:22 PM EDT) Pathologist [facility] D Dimer High Sensitivity 200 NG/ML [facility] Comment:D-DIMER HS REFERENCE RANGENote: Our assay reports D-Dimer Units (D- DU).The cut-off value for venous thromboembolic (VTE) disease is230 ng/mL. This value has a very high negative predictivevalue when the patient has a low to moderate clinicalprobability of VTE.The upper limit of normal is 243 ng/mL. 08/25/2025 2:22 PM EDT 08/25/2025 2:22 PM EDT us Generic External Data Provider LAB BLOOD ORDERAB LES Final Result [facility] [address] [place] [phone] * (ABNORMAL) CBC auto differential (08/25/2025 2:22 PM EDT) Pathologist [facility] White Blood Count 7.2 4.8 - 10.8 X10*3/uL [facility] Red Blood Count 5.13 4.20 - 5.50 X10*6/uL [facility] Hemoglobin 11.3(L) 12.0 - 16.0 g/dl [facility] Hematocrit 39.2 37.0 - 47.0 % [facility] Mean Corpuscular Volume 76.4(L) 80.0 - 98.0 fL [facility] Mean Corpuscular Hemoglobin 22.0(L) 27.0 - 33.0 pg [facility] Mean Corpuscular HGB Conc 28.8(L) 31.0 - 35.0 g/dl [facility] Red Cell Distribution Width 15.7 11.0 - 16.0 % [facility] Platelet Count 299 160 - 400 X10*3/uL [facility] Mean Platelet Volume 10.0 9.4 - 12.3 fL [facility] Neutrophils Percent Auto 50.9 45 - 73 % [facility] Imm Gran Pct Auto 0.1 0.0 - 0.4 % [facility] Lymphocytes Percent Auto 38.3 20 - 40 % [facility] Monocytes Percent Auto 8.4 2 - 11 % [facility] Eosinophils Percent Auto 2.0 0 - 4 % [facility] Basophils Percent Auto 0.3 0 - 2 % [facility] NRBC Pct Auto 0.0 0.0 - 0.2 /100WBC [facility] Neutrophils Absolute Auto 3.7 2.0 - 8.3 x10*3/uL [facility] Imm Gran Abs Auto 0.01 0.00 - 0.03 X10*3/uL [facility] Lymphocytes Absolute Auto 2.7 1.2 - 4.9 X10*3/uL [facility] Monocytes Absolute Auto 0.6 0.1 - 1.2 X10*3/uL [facility] Eosinophils Absolute Auto 0.1 0.0 - 0.4 X10*3/uL [facility] Basophils Absolute Auto 0.0 0.0 - 0.2 X10*3/uL [facility] NRBC Abs Auto 0.000 0.0 - 0.012 X10*3/uL [facility] 08/25/2025 2:22 PM EDT 08/25/2025 2:22 PM EDT us Generic External Data Provider LAB BLOOD ORDERAB LES Final Result [facility] [address] [place] [address] [phone] * (ABNORMAL) Sed Rate by Modified Westergren (08/25/2025 2:22 PM EDT) [facility] Erythrocyte Sedimentation Rate 21(H) 0 - 20 MM/HR [facility] Comment:Patients with polycy themia and many hemoglobin abnormalitiesmay have depressed sed rates whereas patients with anemiamay have elevated sed rates. 08/25/2025 2:22 PM EDT 08/25/2025 2:22 PM EDT Generic External Data Provider LAB BLOOD ORDERAB LES Final Result Performing Organization Address [facility] Co de Phone Number [facility] [address] [place] [phone] * (ABNORMAL) Hepatic Function Panel (08/25/2025 2:22 PM EDT) [facility] Bilirubin, Total 0.9 0.0 - 1.0 mg/dL [facility] Bilirubin, Direct 0.3 0.0 - 0.5 mg/dL [facility] Aspartate Amino Transferase 24 5 - 31 U/L [facility] Alanine Aminotransferase 26 0 - 31 U/L [facility] Total Protein 7.7 6.5 - 8.0 g/dL [facility] Albumin Level 4.7 3.5 - 5.0 g/dL [facility] Alkaline Phosphatase 119(H) 39 - 117 U/L [facility] 08/25/2025 2:22 PM EDT 08/25/2025 2:22 PM EDT Generic External Data Provider LAB BLOOD ORDERAB LES Final Result Performing Organization Address [facility] Co de Phone Number [facility] [address] [place] [phone] * Basic Metabolic Panel (08/25/2025 2:22 PM EDT) Sodium 142 135 - 145 mmol/L [facility] Potassium 3.9 3.3 - 5.1 mmol/L [facility] Chloride 108 96 - 108 mmol/L [facility] Carbon Dioxide 24 22 - 29 mmol/L [facility] Anion Gap 14 12 - 20 [facility] Urea Nitrogen (BUN) 15 9 - 16 mg/dL [facility] Creatinine, Serum 0.79 0.5 - 1.4 mg/dL [facility] Estimated Glomerular Filt Rate >60 [facility] Comment:Chronic Kidney Disea se: Estimated GFR < 60 mL/min/1.56n6Exregm Kidney Disease: Estimated GFR < 15 mL/min/1.73m2 Glucose 107 60 - 115 mg/dL [facility] Calcium 9.3 8.4 - 10.2 mg/dL [facility] 08/25/2025 2:22 PM EDT 08/25/2025 2:22 PM EDT us Generic External Data Provider LAB BLOOD ORDERAB LES Final Result [facility] [address] [place] [phone] * CT Abdomen Pelvis w/o Contrast (07/10/2025 10:04 AM EDT) Anatomical Region Laterality Modality Body, Pelvis, Abdomen Computed T omography Historical Provider MD RAMOS CT PROCEDURES Final R esult * HIV-1/2 Antigen and Antibodies, Fourth Generation, with Reflexes (03/18/2025 3:42 PM EDT) HIV AB/AG Nonreactive Nonreactive [facility] Comment:HIV-1 p24 Ag and/or HIV-1/HIV-2 Ab not detected.A test result that is nonreactive does not exclude thepossibility of exposure to or infection with HIV-1 and/orHIV-2. Nonreactive results in this assay for individualswith prior exposure to HIV-1 and/or HIV-2 may be due toantigen and antibody levels that are below the limit ofdetection of this assay.The [employer] HIV Ag/Ab Combo assay result andsupplemental assay results should be interpreted inconjunction with the patient's clinical presentation,history and other laboratory results. If the results areinconsistent with clinical evidence, additional testing issuggested to confirm the result. Blood Venous blood specimen / Unknown 03/18/2025 3:42 PM EDT 03/18/2025 5:43 PM EDT us miCab [facility] LAB BLOOD ORDERABLES Final Res ult Performing Organization Address [facility]/ZIP Co de Phone Number [facility] [address] [place] [phone] * Hemoglobin A1c (03/18/2025 3:42 PM EDT) Hemoglobin A1c 5.9 <6.0 % [facility] Comment:Hemoglobin A1C Refer ence Range Adults: 4.8 - 6.0 % Non diabetic: < 6.0 % Goal: < 7.0 %Additional Action Suggested: > 8.0 %Note: Hemoglobin A1c results are invalid for patients with abnormal amounts of HbF. Blood transfusions may impact the HbA1c concentration in the patient sample. Estimated Average Glucose 123 mg/dL [facility] Comment:eAG = Estimated ave rage glucose which is %A1C expressed asaverage glucose, using the formula of the [id number] Glucose study (ADAG), Diabetes Care, Vol.31,#8,Jun. 2007 Blood Venous blood specimen / Unknown 03/18/2025 3:42 PM EDT 03/18/2025 5:43 PM EDT us miCab [facility] LAB BLOOD ORDERABLES Final Res ult Performing Organization Address [facility]/ZIP Co de Phone Number [facility] [address] [place] [phone] * Hepatitis Panel, General (07/20/2024 8:40 AM EDT) Pathologist [facility] Hepatitis A IgM Nonreactive Nonreactive [facility] Comment:IgM antibodies to [place] V not detected; does not exclude earlyacute or recovered HAV infection. ~Hepatitis B Surface Antibody REACTIVE Nonreactive [facility] Comment:REACTIVE: > 11.99 mI U/mL Hepatitis B Core Antibody Nonreactive Nonreactive [facility] Hepatitis C Antibody Nonreactive Nonreactive [facility] Comment:Antibodies to HCV no t detected; does not exclude early acuteHCV infection. Hepatitis B Surface Ag Negative Negative [facility] 07/20/2024 8:40 AM EDT 07/20/2024 8:40 AM EDT us Generic External Data Provider LAB BLOOD ORDERAB LES Final Result [facility] [address] [place] [phone] * Mammography (06/17/2024) Pathologist [facility] Mammogram BIRADS 1 Normal, Abnormal, BIRADS 1 , BIRADS 2 Anatomical Region Laterality Modality Other Charbel Lyons MD HEALTH MAINTENANCE Final Result * Lipid Panel, Standard (05/17/2024 10:55 AM EDT) Pathologist [facility] Triglycerides 112 <150 mg/dL [facility] Comment:Desirable Triglyceri de: less than 150 mg/dLBorderline High Triglyceride 150-199 mg/dLHigh Triglyceride: 200-499 mg/dLVery High Triglyceride: greater than or equal to 5OO mg/dL Cholesterol 152 <200 mg/dL [facility] Comment:Desirable Cholestero l: less than 200 mg/dLBorderline High Cholesterol: 200-239 mg/dLHigh Cholesterol: greater than 239 mg/dL LDL Cholesterol Calculated 80 <100 mg/dL [facility] Comment:Desirable LDL: less than 100 mg/dLNear Optimal/Above Optimal LDL: 110- 129 mg/dLBorderline High LDL: 130-159 mg/dLHigh LDL: 160-189 mg/dLVery High LDL: greater than or equal to 190 mg/dL HDL Cholesterol 50 >40 mg/dL [facility] Comment:Desirable HDL: great er than 40 mg/dL Note: This HDL assay may give artificially low results in patients with liver disease. 05/17/2024 10:5 5 AM EDT 05/17/2024 11:39 AM EDT us Barger Name LAB BLOOD ORDERABLES Final Resul t [facility] [address] [place] [phone] * Diabetes Eye Exam (03/11/2024) Eye Exam Normal Normal us Charbel Lyons MD HEALTH MAINTENANCE Final Result * Hm Colonoscopy (12/15/2019) Colonoscopy Normal Normal 12/15/[address] - 12/15/2019 1:24 PM EST Colonoscopy performed at [facility] ( see scanned report) recommended 10 year follow up [facility] Provider HEALTH MAINTENANCE Final Result from Last 3 Months or Most Recently Relevant to Health Maintenance Insurance [place] [address] C3 Care Teams Cylinder Steamer Relationship Specialty Start Date End Date Name, MD Charbel [address] [place] [phone] PCP - General Family Medicine 02/26/16 [facility] 04/28/25
--- OUTSIDE RECORDS SUMMARY | 2025-09-16 09:45 | XMS_ITS | Encounter Summary ---
Author Organization [employer] Address [address] [place] [address] 7 [place] [address] Care Team Providers Care Bake Room Worker Name Role Phone Name, Charbel CARRILLO Primary Care Provider [phone] аМрия Gudino PharmD Unavailable [phone] Robin Muniz RN Unavailable Leann Edgar Unavailable Encounter Details Date Type Department Care Team (Late st Contact Info) Description 05/25/2024 Orders Only [facility] [address] [place] [address] Provider, MD Fantasma Social History Tobacco Use [...] Description 09/16/2025 11:00 AM EDT Office Visit [facility] [address] [place] [phone] Name, MD Charbel [address] [place] [phone] 12/16/2025 1:30 PM EST Telemedicine [address] [address] Roz Le, ARLINE documented as of this [...] documented as of this encounter Care Teams Bake Room Worker Relationship Specialty Start Date End Date Name, MD Charbel [address] [place] [phone] PCP - General Family Medicine 02/26/16 Мария Gudino PharmD [address] [place] [phone] Pharmacist Internal Medicine 04/29/23 07/11/25 Robin Muniz RN [address] [place] [phone] Registered Nurse Family Medicine 04/22/25 08/11/25 Leann Edgar 04/22/25 08/11/25 [facility] documented as of this encounter
--- OUTSIDE RECORDS SUMMARY | 2025-09-16 09:45 | XMS_ITS | Encounter Summary ---
Author Organization [employer] Address [address] [place] [address] 7t [place] [address] Care Team Providers Care Rn Child Name Role Phone Name, Charbel CARRILLO Primary Care Provider [phone] Мария Gudino PharmD Unavailable [phone] Robin Muniz RN Unavailable [phone] Leann Edgar Unavailable Reason for Visit * Reason Comments Med Refill Encounter Details Date Type Department Care Team (Late st Contact Info) Description 05/29/2024 Refill [facility] [address] [place], [place] [phone] Name, MD Charbel [address] [place], [place] [phone] Social History Tobacco Use Types Packs/Day Years [...] Description 09/16/2025 11:00 AM EDT Office Visit [facility] [address] [place] [address] Name, MD Charbel [address] [place] [address] 12/16/2025 1:30 PM EST Telemedicine [address] [address] Roz Le, ARLINE documented as of this [...] as of this encounter Care Teams Rn Child Relationship Specialty Start Date End Date Name, MD Charbel [address] [place] [address] PCP - General Family Medicine 02/26/16 Мария Gudino, Aleisha [address] [place] [address] Pharmacist Internal Medicine 04/29/23 07/11/25 Robin Muniz, ARLINE [address] [place] [address] Registered Nurse Family Medicine 04/22/25 08/11/25 Leann Edgar 04/22/25 08/11/25 [facility] 04/28/25 documented as of this encounter
--- OUTSIDE RECORDS SUMMARY | 2025-09-16 09:45 | XMS_ITS | Data Portability ---
Author Organization [place] [facility] Address [address] [place] [address] Care Team Providers Care Roustabout Supervisor Name Role Phone NAME, HUBERT Referring Provider [...] tunnel release (SURG) 2023 025 [facility], [address] [place], [address], 01/14/202 5 11:50:41 Imaging XR, wrist, 2 view - 2V LT TMJ, F/U, RM 116 2023 024 [facility], [address], [address], [place], [address], 4 11:11:20 Medication Orders None recorded. Patient TargetsNo targets recorded. Patient InstructionsNo instructions recorded. 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 [facility] for Carpal tunnel syndrome of right wrist [...] a4ajBk vP9nXo QUaueC m3YtLR FvZlgJ JJ8mAn HZtai3 7q9135 AC0Kqa X6CUKO hKiQtr MwF INTERFACE [facility] [address], [place], [address], 10/08/2024 11:11:21 10/08/20 24 10/08/2024 XR, wrist , 2 view http:/ [email or web address] ?Encry pted=s hAaTro YD8dLq bEUv6g %2BXZw aYqtaq 0bqfl% 2Fg9IQ a4ajBk vP9nXo QUaueC m3YtLR FvZlgJ JJ8mAn HZtai3 7z2452 AC0Kqa X6CUKO hKiQtr MwF INTERFACE [facility] [address], [place], [address], 10/08/2024 11:11:23 Result Notes Documentation Provider Name and Address Organization Details Recorded Time Xr, Wrist, 2 View : [email or web address]? Encrypted=nkRyHfiJP7xDphP Uv6g%6TVExzEiruz6jzkh%2Fg 0GMq4nwQeyE0wReBLhwvId4Ry QUQoKesHLW2tAtXTuwc23b376 4HV5OenA4AUKNuYhUqbXzG Not Available [facility] 10/08/2024 11:11: 22 Xr, Wrist, 2 View : [email or web address] Encrypted=lkMqMaoGL9iXbqG Uv6g%0BMDteUzabi1unjm%2Fg 7RMn2udDvzG4uPxSXdhpQt5Fg LNFwShkLHT1qRwWKeld16u167 3MT2CozU1KGMKkXeYtwQeH Not Available [facility] 10/08/2024 11:11: 24 Problems Name Problem SNOMED Code Status Onset Date Resolution Date Notes Provider Name and Address Organization Details Recorded Time No complaints 767786553 Active Status : 'A'; Not Available [facility] 4 09:11:19 Impingemen t syndrome of right shoulder region 0518640196648 02 Active 2023 Gloria Sullivan PA-C [address], [place], [address] , [facility] 4 12:36:41 Neck pain 55124043 Active 2023 Gloria Sullivan PA-C [address], [place], [address] , [facility] 4 12:36:45 Carpal tunnel syndrome of right wrist 3516930270408 08 Active 2024 Dylan Stanford PA-C [address], [place], [address] , [facility] 5 11:43:11 Entrapment of right ulnar nerve at elbow 5596160441 Active 2024 Dylan Stanford PA-C [address], [place], [address] , [facility] 5 11:43:11 Problem Notes None recorded. Procedures Surgical History Date Name Laterality Status Provider Name and Address Organization Details Recorded Time 5 [facility] completed Clarence Lopez MD [address], [place], [address], [facility] 02/23/2025 13:08:04 4 [facility] completed Clarence Lopez MD [address], [place], [address], [facility] 10/09/2024 13:06:55 4 55377 Therapeutic Exercise (1:1) completed Rashid Chen PTA [address], [place], [address], [facility] 08/06/2024 13:57:40 4 59797: Hot or Cold Pack completed Rashid Chen PTA [address], [place], [address], [facility] 08/06/2024 13:57:40 4 Sports Knee 4&1 completed William Hutchins MD [address], [place], [address], [facility] 08/08/2024 15:45:17 4 65488 Therapeutic Exercise (1:1) completed Rashid Chen PTA [address], [place], [address], [facility] 07/30/2024 13:44:11 4 20050: Hot or Cold Pack completed Rashid Chen PTA [address], [place], [address], [facility] 07/30/2024 13:47:22 4 99912 Therapeutic Exercise (1:1) completed Rashid Chen, DRILLER OPERATOR [address], [place], [address], [facility] 07/22/2024 14:04:46 4 05999: Manual therapy completed Rashid Chen DRILLER OPERATOR [address], [place], [address], [facility] 07/22/2024 14:04:46 4 58313 Therapeutic Exercise (1:1) completed Rashid Chen DRILLER OPERATOR [address], [place], [address], [facility] 07/20/2024 13:40:04 4 63701: Manual therapy completed Rashid Chen PTA [address], [place], [address], [facility] 07/20/2024 13:40:04 4 86598 Therapeutic Exercise (1:1) cancelled Kevin Cullen, PT [address], [place], [address], [facility] 07/15/2024 06:59:17 4 56379: Manual therapy cancelled Kevin Cullen, PT [address], [place], [address], [facility] 07/15/2024 06:59:17 4 36817 Therapeutic Exercise (1:1) completed Rashid Chen PTA [address], [place], [address], [facility] 07/06/2024 14:33:33 4 94422: Manual therapy completed Rashid Chen, DRILLER OPERATOR [address], [place], [address], [facility] 07/06/2024 14:33:38 4 42523 Therapeutic Exercise (1:1) completed Rashid Chen, DRILLER OPERATOR [address], [place], [address], [facility] 07/02/2024 14:31:30 4 39407: Manual therapy completed Rashid Chen, DRILLER OPERATOR [address], [place], [address], [facility] 07/02/2024 14:31:47 4 83173 Therapeutic Exercise (1:1) completed Kevin Suarezmarnie, PT [address], [place], [address], [facility] 06/30/2024 15:07:16 4 95593: Low complexity PT Eval completed Kevin Suarezmarnie, PT [address], [place], [address], [facility] 06/30/2024 15:07:19 Imaging Results None recorded. Procedure Notes None recorded. Medical Equipment None Reported. Allergies Allergen ID Allergen Name Allergen Category Reaction Reaction Severity Criticality Documentation Date Start Date Code Code System Note Provider Name and Address Organization Details Recorded Time 14169 Product containin g penicilli n (product) medicatio n Not available Not available Not available 01/19/20242002 37353 8001 SNOMED Aller gyRea ction : 'NO SYMPT OM SPECI FIED' ; Not Available [facility] 4 10:54:25 08465 Naprosyn medicatio n Not available Not available Not available 01/19/20242014 2 RxNorm Aller gyRea ction : 'Naus ea/Vo mitin g/Lili rrhea '; Not Available [facility] 4 10:54:25 81578 latex environme nt,medica tion Not available Not available Not available 01/19/20242003 57571 91 RxNorm Aller gyRea ction : 'Skin React ion'; Not Available [facility] 4 10:54:25 57883 renan allergeni c extract food,medi cation Not available Not available Not available 01/19/20242021 54507 04 RxNorm Not Available [facility] 4 10:54:25 73704 Tylenol medicatio n Not available Not available Not available 01/19/20242021 78230 3 RxNorm Not Available [facility] 4 10:54:25 55175 ibuprofen medicatio n Not available Not available Not available 01/19/20242021 5640 RxNorm Not Available [facility] 4 10:54:25 38379 iodine medicatio n Not available Not available Not available 01/19/20242021 5933 RxNorm Not Available [facility] 4 10:54:25 34838 Shellfish (substanc e) food,medi cation Not available Not available Not available 01/19/20242021 10131 9006 SNOMED Not Available [facility] 4 10:54:25 Medications Name Sig Start Date [...] Not Available Not Available Not Available [employer] [place] Lite kit TEST BLOOD SUGAR THREE TIMES [...] Not Available No t Available Artificial Tears (fz878-qett omell-glyce rin) 1 %-0.2 %-0.2 % eye [...] Updated DateTime 12/14/2024 165.1 cm 28.3 kg/m2 45277.7 g Dipti bennett [facility] 12/14/2024 14:10:24 Date Recorded Body height Body mass index (BMI) Body weight Provider Name and Address Organization Details Last Updated DateTime 01/12/2025 165.1 cm 28.3 kg/m2 24136.7 g MALINI COLEMAN [facility] 01/12/2025 14:46:19 Date Recorded Body height Body mass index (BMI) Body weight Provider Name and Address Organization Details Last Updated DateTime 02/23/2025 165.1 cm 28.3 kg/m2 78740.7 g MALINI COLEMAN [facility] 02/23/2025 11:55:02 Date Recorded Body height Body mass index (BMI) Body weight Provider Name and Address Organization Details Last Updated DateTime 09/27/2024 165.1 cm 28.3 kg/m2 95038.7 g MALINI COLEMAN [facility] 09/27/2024 13:06:37 Date Recorded Body height Body mass index (BMI) Body weight Provider Name and Address Organization Details Last Updated DateTime 10/08/2024 165.1 cm 28.3 kg/m2 57019.7 g MALINI COLEMAN [facility] 10/08/2024 10:38:46 Social History Question Answer Notes LastModified by Organizat ion Details LastModified Time Tobacco Smoking Status Never Smoker ORESTES padilla [facility] 04/29/2024 16:49:14 Which Of Your Hands Is [...] Response Allergies/Hayfever N Coronary Artery Disease N Breathing or lung disorders Y Anxiety/Depression Y Emphysema N Nerve Disorders N Thyroid Problems N COPD Y Pacemaker N Kidney/Bladder Problems N Anemia Y Vascular Disease N Heart Trouble N Heart Attack (PA) N Gastrointestinal Disease Y Cholesterol Y Diabetes Y Autoimmune disease N Bleeding Disorder N Orthotics N Seizures/Epilepsy N Arthritis Y Blood Clot N AIDS/HIV N Congestive Heart Failure (CHF) N Acid Reflux (GERD) Y Cancer N Stroke N Asthma N Circulation Problems N Peripheral Vascular Disease N Sleep Apnea Y Hepatitis N Heart Disease N Rheumatoid Arthritis N Pulmonary Embolism N Arrhythmia N Headaches Y Fibromyalgia Y Hypertension Y Osteoporosis N Gynecological HistoryNo gynecological history recorded. Obstetrics History GPAL:G 0 P 0 0 0 0 Past Encounters Encounter ID Performer Location Encounter Start Date Encounter Closed Date Diagnosis/Indication Diagnosis SNOMED-CT Code Diagnosis ICD10 Code Diagnosis IMO Codes Diagnosis Note [id number] [facility] [address] [place] [address] 03/11/2024 14:23:48 03/25/2024 12:18:00 Pain of left knee region 2938094977 76301 M25.562 Contusion of left knee 7912943964 5831416 S80.02XD [id number] BERYL Slade [address] [place] [address] 03/17/2024 12:59:12 03/30/2024 10:59:28 Pain of right knee joint 2567302673 45968 M25.561 Osteoarthr itis of right knee joint 9167667684 59075 M17.11 [id number] MD Yudi Shahid [address] [place] [address] 03/30/2024 14:57:25 04/09/2024 12:11:46 Pain of right knee joint 9676886981 74668 M25.053 [id number] Gloria Sullivan PA-C [facility] [address] [place] [address] 04/01/2024 09:55:09 04/15/2024 09:23:33 Pain of right shoulder joint 3593863862 0324559 M25.511 Impingemen t syndrome of right shoulder region 0679319070 26833 M75.41 Neck pain 57629978 M54.2 [id number] MD Yudi Hartley [address] [place] [address] 04/30/2024 10:47:39 05/21/2024 15:38:34 Impingement syndrome of right shoulder region 6685538536 75891 M75.41 [id number] BERYL Nav[facility] [address] [place] [address] 05/31/2024 13:58:05 06/15/2024 16:02:00 Impingement syndrome of right shoulder region 9858753594 94470 M75.41 [id number] Clarence Lopez MD [facility] [address] [place] [address] 06/21/2024 10:45:36 07/16/2024 08:12:46 Ulnar nerve entrapment at elbow 238052983 G56.21 Carpal july omar syndrome of right wrist 0525591738 18297 G56.01 [id number] Kevin Cullen PT [facility] [address] [place] [address] 06/30/2024 13:50:17 06/30/2024 15:21:35 Tendinitis of right shoulder 2951332397 697125 M75.91 [id number] BERYL Navarro [address] [place] [address] 07/01/2024 13:48:28 07/21/2024 10:15:42 Postoperative care 926507174 Z48.89 [id number] Rashid Gustavo, DRILLER OPERATOR [facility] [address] [place] [address] 07/02/2024 13:46:11 07/02/2024 14:33:13 Tendinitis of right shoulder 6761836961 644160 M75.91 [id number] Rashid Chen DRILLER OPERATOR [facility] [address] [place] [address] 07/06/2024 13:38:15 07/06/2024 17:20:16 Tendinitis of right shoulder 6258337507 805730 M75.91 [id number] Rashid Chen DRILLER OPERATOR [facility] [address] [place] [address] 07/20/2024 13:36:29 07/20/2024 14:54:17 Tendinitis of right shoulder 7278390823 491206 M75.91 [id number] Rashid Chen DRILLER OPERATOR [facility] [address] [place] [address] 07/22/2024 13:53:19 07/22/2024 15:05:38 Tendinitis of right shoulder 1696842912 234699 M75.91 [id number] Rashid Chen DRILLER OPERATOR [facility] [address] [place] [address] 07/30/2024 12:54:12 07/30/2024 15:13:09 Tendinitis of right shoulder 8001085360 448124 M75.91 [id number] William Hutchins MD [facility] [address] [place] [address] 08/02/2024 13:45:51 08/24/2024 08:18:51 Pain of right knee joint 9856360254 31247 M25.826 [id number] Rashid Chen DRILLER OPERATOR [facility] [address] [place] [address] 08/06/2024 13:48:35 08/06/2024 14:48:41 Tendinitis of right shoulder 6908746080 908997 M75.91 [id number] MD Andressa G[facility] [address] [place] [address] 09/27/2024 12:57:16 10/26/2024 11:57:59 Entrapment of right ulnar nerve at elbow 1608973849 G56.21 [id number] Carpal july omar syndrome of right wrist 3126869748 77997 G56.01 [id number] Clarence Lopez MD [facility] [address] [place] [address] 10/08/2024 10:29:26 11/08/2024 10:20:09 Pain of left wrist 3047677086 86940 M25.532 968002 Arthritis of first carpometacarpal joint of left hand 7235141414 517675 M18.12 [id number] Dylan Stanford PA-C [facility] [address] [place] [address] 12/14/2024 14:00:06 01/05/2025 14:16:07 Entrapment of right ulnar nerve at elbow 9907591881 G56.21 [id number] Carpal july omar syndrome of right wrist 3102222502 94165 G56.01 [id number] MD MIKE [facility] - [facility] [address] [place] [address] 01/12/2025 14:37:44 01/27/2025 17:55:31 Entrapment of left ulnar nerve at elbow 0386689092 G56.22 [id number] Carpal july omar syndrome of left wrist 6810711571 78917 G56.02 [id number] MD MIKE [facility] - [facility] [address] [place] [address] 02/23/2025 11:37:23 03/09/2025 11:20:57 Arthritis of first carpometacarpal joint of left hand 0440040016 006579 M18.12 [id number] Health Concerns Section Related Observation LastModified by Organization Detai ls LastModified Time None Recorded Concern Status LastModified by Organization Details LastModified Time None Recorded Advance Directives Directive None Recorded Payers Insurance Date Sequence Insurance Name Policy Number Policy Cifuentes Covered Member ID Cifuentes Member ID Guarantor Name 02/23/2025 1 [place] [facility] Sade Izaguirre [id number] Sade Izaguirre 08/16/2024 [employer] Sade Izaguirre Notes Date Note Type Note Provider Name and Address Organization Details Recorded Time 09/27/2024 text/html ROS as noted in the HPI Diagnosis: Right carpal and cubital tunnel syndromeEMG [...] consented to the procedure. 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 Clarence Lopez MD [address] [employer] [address], [place], [address], [facility] 10/09/2024 13:07:51 12/14/2024 text/html I am seeing [...] or drainage reported. Dylan Stanford PA-C [address], [place], [address], [facility] 12/14/2024 14:29:59 01/12/2025 text/html ROS as noted in the HPI Diagnosis: Status post decompression right cubital tunnel and right [...] as directed. 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
--- OUTSIDE RECORDS SUMMARY | 2025-09-16 09:46 | XMS_ITS | Clinical Summary ---
Author Organization [facility] Address [address] [place] [address] Phone Care Team Providers Care Ui Ux Web Developer Name Role Phone Unavailable Primary Care Provider [...] Low 05/26/2024 Level of certainty: Moderately Certain [place] Flavor Hives,Wheezing 05/30/2009 Nsaids (Non-Steroidal Anti-Inflammatory Drug) [...] Max Daily Amount: 10 mg 1 Active Active Problems Problem Noted Date Diagnosed Date S/P abdominoplasty 07/12/2025 Abdominal wall seroma 07/12/2025 Abdominal wall seroma, initial encounter 025 Encounters Date Type Department Care Team Description 07/12/2025 11:30 AM EDT Consult Plastic & Reconstructive Surgery [facility] [address] [place] [phone] Cesar Berg PA S/P abdominoplasty (Primary Dx); Abdominal wall seroma, sequela 07/10/2025 4:21 PM EDT - 07/10/2025 7:25 PM EDT Emergency [facility] Emergency [address] [place] [phone] Arpit Buckley MD Lower abdominal pain (Primary Dx); Abdominal wall seroma, initial encounter; Suspected soft tissue infection Discharge Disposition: Home or Self Care 07/05/2025 12:24 AM EDT - 07/07/2025 12:20 PM EDT Hospital Encounter [facility] Urology [address] [place] [address] Jean-Pierre Ortiz MD Alam, Aroosa, MD Abdominal wall seroma, initial encounter (Primary Dx) Discharge Disposition: Home-Health Care Svc from Last 3 Months Surgical History Surgery Date Site/Laterality Comments SECTION PROCEDURE: HISTORICAL ; COMMENT: 6 CHOLECYSTECTOMY PROCEDURE: HISTORICAL CHOLECYSTECTOMY APPENDECTOMY PROCEDURE: HISTORICAL APPENDECTOMY Medical History Medical History Date Comments Carpal tunnel syndrome 09/09/2006 DX:Carpal tunnel syndrome Anxiety 07/02/2007 DX:Anxiety Asthma 09/09/2006 DX:Asthma Bipolar I disorder ([facility] V24, [facility] V28) 07/02/2007 DX:Bipolar I disorder ([facility]) Chronic knee pain 07/24/2018 DX:Chronic kne e [...] DX :CJ (obstructive sleep apnea) Sjogren's syndrome ([facility] V24) 07/24/2018 DX:Sjogren's syndrome (HCC) Family History Medical History Relation Name Comments Diabetes Father HTN Heart failure Maternal Grandmother DM Arthritis Mother HTN, Cancer ugashik rine Relation Name Status Comments Father Maternal Grandmother Mother Social History Tobacco Use Types Packs/Day Years Used Date Smoking Tobacco: Former Cigarettes Q uit: 11/17/2009 Smokeless Tobacco: Never Alcohol Use Standard Drinks/Week Comments No 0 (1 standard drink = 0.6 oz pur e alcohol) Interpersonal Safety Answer Date Record ed Physical Abuse Unrecognized value 07/05/2025 Verbal Abuse Unrecognized value 07/05/2025 Comments Unknown Sex and Gender Information [...] Breast Cancer Screening 1969 Colorectal Cancer Screening: Colonoscopy 1969 Diabetes: Annual Foot Exam 1979 Diabetes: Annual Retina Eye Exam 1979 Hepatitis A Vaccines (1 of 2 - Risk 2-dose series) 02/18/1988 Cervical Cancer Screening: Pap Smear 1990 RSV Immunization Adult Patients (1 - Risk 50-74 years 1-dose series) 2019 Hepatitis C Screening 10/30/2022 Social Influencers of Health Screening 10/30/2022 Depression Screening 11/17/2024 Diabetes: Annual Urine Albumin-Creatinine Ratio (uACR) 07/04/2025 COVID-19 Vaccine ( season) 2025 09/24/2023, 08/26/2022, 03/14/2022, Additional history exists Influenza Vaccine (#1) 2025 4, 08/27/2023, 08/06/2022, Additional history exists Diabetes: Blood [...] on 07/10/2025 18:20:26 us Arpit Ina CARRILLO IM CT PROCEDURES Final Result * (ABNORMAL) CBC auto differential (07/10/2025 4:38 PM EDT) Only the most recent of3 resultswithin the time period is included. WBC 8.2 4.8 - 10.8 K/[facility] LAB HEMETOLOGY METHOD 07/10/2025 5:28 PM EDT [facility] RBC 5.30(H) 3.80 - 4.80 M/mcL LAB HEMETOLOGY METHOD 07/10/2025 5:28 PM EDT [facility] Hemoglobin 11.8 11.5 - 16.0 g/dL LAB HEMETOLOGY METHOD 07/10/2025 5:28 PM [facility] Hematocrit 39.9 35.0 - 47.0 % LAB HEMETOLOGY METHOD 07/10/2025 5:28 PM [facility] MCV 75.0(L) 79.0 - 98.0 FL LAB HEMETOLOGY METHOD 07/10/2025 5:28 PM [facility] MCH 22.2(L) 27.0 - 32.0 pcg LAB HEMETOLOGY METHOD 07/10/2025 5:28 PM [facility] MCHC 29.6(L) 32.0 - 37.0 g/dL LAB HEMETOLOGY METHOD 07/10/2025 5:28 PM [facility] RDW 14.5 11.0 - 15.0 % LAB HEMETOLOGY METHOD 07/10/2025 5:28 PM [facility] Platelets 267 130 - 400 K/mcL LAB HEMETOLOGY METHOD 07/10/2025 5:28 PM [facility] MPV 10.8 7.0 - 11.0 FL LAB HEMETOLOGY METHOD 07/10/2025 5:28 PM [facility] NRBC 0.0 <1.0 % LAB HEMETOLOGY METHOD 07/10/2025 5:28 PM [facility] NRBC Absolute 0.00 <0.10 K/mcL LAB HEMETOLOGY METHOD 07/10/2025 5:28 PM [facility] Neutrophils Relative 57.9 % LAB HEMETOLOGY METHOD 07/10/2025 5:28 PM [facility] Lymphocytes Relative 33.9 % LAB HEMETOLOGY METHOD 07/10/2025 5:28 PM EDT [facility] Monocytes Relative 5.9 % LAB HEMETOLOGY METHOD 07/10/2025 5:28 PM [facility] Eosinophils Relative 1.5 % LAB HEMETOLOGY METHOD 07/10/2025 5:28 PM [facility] Basophils Relative 0.6 % LAB HEMETOLOGY METHOD 07/10/2025 5:28 PM [facility] Immature Granulocytes Relative 0.2 % LAB HEMETOLOGY METHOD 07/10/2025 5:28 PM [facility] Neutrophils Absolute 4.72 1.50 - 7.00 K/mcL LAB HEMETOLOGY METHOD 07/10/2025 5:28 PM [facility] Lymphocytes Absolute 2.76 1.00 - 5.00 K/mcL LAB HEMETOLOGY METHOD 07/10/2025 5:28 PM [facility] Monocytes Absolute 0.48 0.20 - 1.00 K/mcL LAB HEMETOLOGY METHOD 07/10/2025 5:28 PM [facility] Eosinophils Absolute 0.12 0.00 - 0.50 K/mcL LAB HEMETOLOGY METHOD 07/10/2025 5:28 PM [facility] Basophils Absolute 0.05 0.00 - 0.20 K/mcL LAB HEMETOLOGY METHOD 07/10/2025 5:28 PM [facility] Immature Granulocytes Absolute 0.02 0.00 - 0.03 K/mcL LAB HEMETOLOGY METHOD 07/10/2025 5:28 PM [facility] Blood Venous blood specimen / Unknown Venipuncture / Unknown 07/10/2025 4:38 PM EDT 07/10/2025 5:13 PM EDT us Arpit Buckley MD LAB BLOOD ORDERABLES Final Resul t [facility] [address] [place] [address], * Basic Metabolic Panel (BMP) (07/10/2025 4:38 PM EDT) Only the most recent of2 resultswithin the time period is included. Sodium 140 133 - 145 mmol/L LAB CHEMISTRY METHOD 07/10/2025 6:02 PM [facility] Potassium 4.2 3.5 - 5.5 mmol/L LAB CHEMISTRY METHOD 07/10/2025 6:02 PM [facility] Comment:Hemolysis present Chloride 107 96 - 110 mmol/L LAB CHEMISTRY METHOD 07/10/2025 6:02 PM [facility] CO2 27 21 - 32 mmol/L LAB CHEMISTRY METHOD 07/10/2025 6:02 PM [facility] Anion Gap 6 3 - 11 LAB CHEMISTRY METHOD 07/10/2025 6:02 PM [facility] Glucose 95 70 - 100 mg/dL LAB CHEMISTRY METHOD 07/10/2025 6:02 PM [facility] BUN 17 5 - 25 mg/dL LAB CHEMISTRY METHOD 07/10/2025 6:02 PM [facility] Creatinine 0.89 0.50 - 1.10 mg/dL LAB CHEMISTRY METHOD 07/10/2025 6:02 PM [facility] eGFR 76 >=60 mL/min/1. 73m2 LAB CHEMISTRY METHOD 07/10/2025 6:02 PM [facility] Comment:Calculation based on the Chronic Kidney Disease Epidemiology Collaboration (CKD-EPI) equation refit without adjustment for race. BUN/Creatinine Ratio 19.1 LAB CHEMISTRY METHOD 07/10/2025 6:02 PM [facility] Calcium 9.6 8.5 - 10.5 mg/dL LAB CHEMISTRY METHOD 07/10/2025 6:02 PM EDT [facility] Blood Venous blood specimen / Unknown Venipuncture / Unknown 07/10/2025 4:38 PM EDT 07/10/2025 5:13 PM EDT us Arpit Buckley MD LAB BLOOD ORDERABLES Final Resul t Performing Organization Address [facility]/ZIP Co de Phone Number [facility] [address] [place] [address], [place] [phone] * (ABNORMAL) POCT Glucose, blood (07/07/2025 8:01 AM EDT) Only the most recent of8 resultswithin the time period is included. Glucose POCT 165(H) 70 - 100 mg/dL 07/07/2025 8:02 AM EDT [facility] Blood Capillary blood specimen / Unknown 07/07/2025 8:01 AM EDT 07/07/2025 8:03 AM EDT us Estephania Gramajo MD LAB POINT OF CARE TE ST DOCKED DEVICE UNSOLICITED RESULTS Final Result Performing Organization Address [facility] de Phone Number [facility] [address] [place] [address], [place] [phone] * Culture body fluid with gram stain (07/06/2025 12:25 PM EDT) Fluid Culture No growth at 3 days LAB MICROBIOLOGY METHOD 5 8:08 AM EDT [facility] Gram Stain Result No polymorphonuclear leukocytes, No epithelial cells, and No organisms noted 5 8:08 AM EDT [facility] Comment:This is an appended report. These results have been appended to a previously preliminary verified report. Aspirate Structure of abdominopelvic wall / Unknown 07/06/2025 12:25 PM EDT 07/06/2025 12:37 PM EDT us Vernell SAHU LAB MICROBIOLOGY - GENERAL ORDER CARLOS Final Result [facility] [address] [place] [address], [place] [phone] * US Guided Perc Drain Plcmnt (07/06/2025 [...] trocar technique was used to place 8 Lao pigtail catheter into collection. Catheter was attached [...] the collection. CONCLUSION: Ultrasound-guided placement of 8 Lao pigtail catheter into superficial anterior abdominal collection. Patient is to follow-up with plastic surgery in 1-2 weeks as outpatient. -------- FINAL REPORT -------- Dictated By: Vernell Yancey Dictated Date: 07/06/2025 14:04 ET Assigned Physician: Rah Brandt Reviewed and Electronically Signed By: Rah Brandt Signed Date: 07/06/2025 16:44 ET Workstation ID: [id number] Transcribed By: Self Edit Transcribed Date: 07/06/2025 14:26 ET Resident/PA/TRAINS SERVICE CONDUCTOR: Vernell Yancey Procedure Note Rah Brandt MD [...] the collection. CONCLUSION: Ultrasound-guided placement of 8 Lao pigtail catheter into superficialanterior abdominal collection. Patient is to follow-up with plasticsurgery in 1-2 weeks as outpatient. -------- FINAL REPORT -------- Dictated By: Vernell Yancey Dictated Date: 07/06/2025 14:04 ET Assigned Physician: Rah Brandt Reviewed and Electronically Signed By: Rah Brandt Signed Date: 07/06/2025 16:44 ET Workstation ID: [id number] Transcribed By: Self Edit Transcribed Date: 07/06/2025 14:26 ET Resident/PA/TRAINS SERVICE CONDUCTOR: Vernell Yancey us Vernell STEWARTG US PROCEDURES Final Result * XR Chest [...] Signed Date: 07/05/2025 08:11 ET Workstation ID: [id number] Transcribed By: Self Edit Transcribed Date: 07/05/2025 [...] Signed Date: 07/05/2025 08:11 ET Workstation ID: [id number] Transcribed By: Self Edit Transcribed Date: 07/05/2025 08:11 ET us Jean-Pierre Ortiz MD IMG XR PROCEDURES Final Res ult * Urinalysis with reflex microscopic (07/05/2025 7:03 AM EDT) Specific Addy Urine 1.023 1.003 - 1.030 LAB URINALYSIS - AUTOMATED METHOD 07/05/2025 8:33 AM EDT [facility] pH, Urine 6.0 5.0 - 8.0 pH LAB URINALYSIS - AUTOMATED METHOD 07/05/2025 8:33 AM EDT [facility] Leukocytes, Urine Negative Negative LAB URINALYSIS - AUTOMATED METHOD 07/05/2025 8:33 AM [facility] Nitrite, Urine Negative Negative LAB URINALYSIS - AUTOMATED METHOD 07/05/2025 8:33 AM [facility] Protein, Urine Negative <=Trace mg/dL LAB URINALYSIS - AUTOMATED METHOD 07/05/2025 8:33 AM [facility] Glucose, Urine Negative Negative mg/dL LAB URINALYSIS - AUTOMATED METHOD 07/05/2025 8:33 AM [facility] Ketones, Urine Negative Negative mg/dL LAB URINALYSIS - AUTOMATED METHOD 07/05/2025 8:33 AM [facility] Urobilinogen, Urine 0.2 0.2 - 1.0 mg/dL LAB URINALYSIS - AUTOMATED METHOD 07/05/2025 8:33 AM [facility] Bilirubin, Urine Negative Negative LAB URINALYSIS - AUTOMATED METHOD 07/05/2025 8:33 AM [facility] Blood, Urine Negative Negative LAB URINALYSIS - AUTOMATED METHOD 07/05/2025 8:33 AM [facility] Urine Urine specimen obtained by clean catch procedure / Unknown Non-blood Collection / Unknown 07/05/2025 7:03 AM EDT 07/05/2025 8:20 AM EDT Hannah SAHU LAB URINE ORDERABLES Fin al Result [facility] [address] [place] [address], * APTT (07/05/2025 12:30 AM EDT) aPTT 32.5 24.1 - 39.3 sec LAB COAGULATION METHOD 07/05/2025 12:48 AM [facility] Blood Venous blood specimen / Unknown Venipuncture / Unknown 07/05/2025 12:30 AM EDT 07/05/2025 12:35 AM EDT Hannah SAHU LAB BLOOD ORDERABLES Fin al Result [facility] [address] [place] [address], [place] [phone] * (ABNORMAL) Protime-INR (07/05/2025 12:30 AM EDT) Pathologist [facility] Protime 10.4(L) 10.6 - 13.9 sec LAB COAGULATION METHOD 07/05/2025 12:48 AM EDT [facility] INR 0.8 LAB COAGULATION METHOD 07/05/2025 12:48 AM EDT [facility] Blood Venous blood specimen / Unknown Venipuncture / Unknown 07/05/2025 12:30 AM EDT 07/05/2025 12:35 AM EDT Hannah SAHU LAB BLOOD ORDERABLES Fin al Result Performing Organization Address [facility]/ZIP Co de Phone Number [facility] [address] [place] [address], [place] [phone] * (ABNORMAL) C-reactive protein (07/05/2025 12:30 AM EDT) [facility] C-Reactive Protein 0.74(H) <=0.50 mg/dL LAB CHEMISTRY METHOD 07/05/2025 5:23 AM EDT [facility] Blood Venous blood specimen / Unknown Venipuncture / Unknown 07/05/2025 12:30 AM EDT 07/05/2025 12:35 AM EDT Jean-Pierre Ortiz MD LAB BLOOD ORDERABLES Final Result Performing Organization Address City/[facility]/ZIP Co de Phone Number [facility] [address] [place] [address], [place] [phone] * hCG Qualitative (07/05/2025 12:30 AM EDT) hCG Qual Negative Negative 07/05/2025 12:55 AM EDT [facility] Blood Venous blood specimen / Unknown Venipuncture / Unknown 07/05/2025 12:30 AM EDT 07/05/2025 12:35 AM EDT Hannah SAHU LAB BLOOD ORDERABLES Fin al Result Performing Organization Address City/[facility]/ZIP Co de Phone Number [facility] [address] [place] [address], [place] [phone] * Magnesium (07/05/2025 12:30 AM EDT) Magnesium 2.4 1.9 - 2.6 mg/dL LAB CHEMISTRY METHOD 07/05/2025 1:03 AM EDT [facility] Blood Venous blood specimen / Unknown Venipuncture / Unknown 07/05/2025 12:30 AM EDT 07/05/2025 12:35 AM EDT Hannah SAHU LAB BLOOD ORDERABLES Fin al Result Performing Organization Address City/[facility]/ZIP Co de Phone Number [facility] [address] [place] [address], [place] [phone] * Lipase (07/05/2025 12:30 AM EDT) Lipase 28 13 - 75 unit/L LAB CHEMISTRY METHOD 07/05/2025 1:03 AM EDT [facility] Blood Venous blood specimen / Unknown Venipuncture / Unknown 07/05/2025 12:30 AM EDT 07/05/2025 12:35 AM EDT Hannah SAHU LAB BLOOD ORDERABLES Fin al Result Performing Organization Address City/[facility]/ZIP Co de Phone Number [facility] [address] [place] [address], * Lactate (07/05/2025 12:30 AM EDT) Lactate 0.7 0.4 - 2.0 mmol/L LAB CHEMISTRY METHOD 07/05/2025 1:02 AM EDT [facility] Blood Venous blood specimen / Unknown Venipuncture / Unknown 07/05/2025 12:30 AM EDT 07/05/2025 12:34 AM EDT Hannah SAHU LAB BLOOD ORDERABLES Fin al Result Performing Organization Address [facility]/ZIP Co de Phone Number [facility] [address] [place] [address], * (ABNORMAL) Comprehensive Metabolic Panel (CMP) (07/05/2025 12:30 AM EDT) Pathologist [facility] Sodium 138 133 - 145 mmol/L LAB CHEMISTRY METHOD 07/05/2025 1:03 AM [facility] Potassium 4.2 3.5 - 5.5 mmol/L LAB CHEMISTRY METHOD 07/05/2025 1:03 AM [facility] Chloride 107 96 - 110 mmol/L LAB CHEMISTRY METHOD 07/05/2025 1:03 AM [facility] CO2 27 21 - 32 mmol/L LAB CHEMISTRY METHOD 07/05/2025 1:03 AM [facility] Anion Gap 4 3 - 11 LAB CHEMISTRY METHOD 07/05/2025 1:03 AM [facility] Glucose 129(H) 70 - 100 mg/dL LAB CHEMISTRY METHOD 07/05/2025 1:03 AM [facility] BUN 24 5 - 25 mg/dL LAB CHEMISTRY METHOD 07/05/2025 1:03 AM [facility] Creatinine 0.86 0.50 - 1.10 mg/dL LAB CHEMISTRY METHOD 07/05/2025 1:03 AM [facility] eGFR 79 >=60 mL/min/1. 73m2 LAB CHEMISTRY METHOD 07/05/2025 1:03 AM [facility] Comment:Calculation based on the Chronic Kidney Disease Epidemiology Collaboration (CKD-EPI) equation refit without adjustment for race. BUN/Creatinine Ratio 27.9 LAB CHEMISTRY METHOD 07/05/2025 1:03 AM [facility] Calcium 9.2 8.5 - 10.5 mg/dL LAB CHEMISTRY METHOD 07/05/2025 1:03 AM [facility] AST (SGOT) 28 10 - 42 unit/L LAB CHEMISTRY METHOD 07/05/2025 1:03 AM [facility] ALT (SGPT) 41 10 - 60 unit/L LAB CHEMISTRY METHOD 07/05/2025 1:03 AM [facility] Alkaline Phosphatase 135(H) 42 - 121 unit/L LAB CHEMISTRY METHOD 07/05/2025 1:03 AM [facility] Total Protein 7.4 6.0 - 8.0 g/dL LAB CHEMISTRY METHOD 07/05/2025 1:03 AM [facility] Albumin 3.8 3.2 - 5.0 g/dL LAB CHEMISTRY METHOD 07/05/2025 1:03 AM [facility] Total Bilirubin 0.4 0.0 - 1.4 mg/dL LAB CHEMISTRY METHOD 07/05/2025 1:03 AM [facility] Blood Venous blood specimen / Unknown Venipuncture / Unknown 07/05/2025 12:30 AM EDT 07/05/2025 12:35 AM EDT us Hannah SAHU LAB BLOOD ORDERABLES Fin al Result [facility] [address] [place] [address], [place] [phone] from Last 3 Months Insurance MEDICAID - [place] Advance Directives Documents on File Type Date Recorded 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
--- OUTSIDE RECORDS SUMMARY | 2025-09-16 09:46 | XMS_ITS | Encounter Summary ---
Author Organization [employer] Address [address] [facility] [address]t [place] [address] Care Team Providers Care Road Freight Brake Coupler Name Role Phone Name, Charbel CARRILLO Primary Care Provider [phone] Мария Gudino PharmD Unavailable [phone] Robin Muniz RN Unavailable [phone] Leann Edgar Unavailable Encounter Details Date Type Department Care Team (Late st Contact Info) Description 09/24/2023 Abstract [facility] [address] [place], [place] [phone] Name, MD Charbel [address] [place], [place] [phone] Social History Tobacco Use Types Packs/Day Years [...] 09/16/2025 11:00 AM EDT Office Visit [facility] [address] [place] [address] Name, MD Charbel [address] [place] [address] 12/16/2025 1:30 PM EST Telemedicine [address] [phone] Roz Le RN documented as of this [...] documented as of this encounter Care Teams Road Freight Brake Coupler Relationship Specialty Start Date End Date Charbel Lyons MD [address] [place] [address] [phone] PCP - General Family Medicine 02/26/16 Puia, Мария, PharmD [address] [place] [phone] Pharmacist Internal Medicine 04/29/23 07/11/25 Robin Muniz RN [address] [place] [address] [place] [address] Registered Nurse Family Medicine 04/22/25 08/11/25 Leann Edgar 04/22/25 08/11/25 [facility] 04/28/25 documented as of this encounter
--- OUTSIDE RECORDS SUMMARY | 2025-09-16 09:46 | XMS_ITS | Encounter Summary ---
Author Organization [employer] Address [address] [place] [address] 7[address] [place] [address] Care Team Providers Care Truck Switcher Name Role Phone Name, Charbel CARRILLO Primary Care Provider [phone] Robin Muniz RN Unavailable [phone] Leann Edgar Unavailable Reason for Visit * Reason Onset Date Comments Med Refill 07/20/2025 Encounter Details Date Type Department Care Team (Late st Contact Info) Description 07/20/2025 Telephone [facility]INE [address] [place], [place] [phone] Name, MD Charbel [address] [place], [place] [phone] Med Refill Social History Tobacco Use Types [...] 11:34 AM EDT Medication was sent to [facility][id number] on 02/03/25 with 11 refills. SPECIAL EDUCATION CLASSROOM AIDE checked on 07/20/25 patient has refills left. * Telephone Encounter - Stephanie Wood - 07/20/2025 11:23 AM EDT TC from pt requesting medication refill. Medications needing refill : - gabapentin (Neurontin) 800 MG tablet To be sent to: - [id number] - [place] [facility] documented in this encounter Plan of Treatment Upcoming Encounters Date Type Department Care Team (Late st Contact Info) Description 09/16/2025 11:00 AM EDT Office Visit [address] [address] Name, MD Charbel [address] [place] [address] 12/16/2025 1:30 PM EST Telemedicine [address] [address] Roz Le RN documented as of this [...] documented as of this encounter Care Teams Truck Switcher Relationship Specialty Start Date End Date Name, MD Charbel [address] [place] [address] PCP - General Family Medicine 02/26/16 Robin Muniz, ARLINE [address] [place] [address] [place] [address] Registered Nurse Family Medicine 04/22/25 08/11/25 Leann Edgar 04/22/25 [facility] documented as of this encounter
--- OUTSIDE RECORDS SUMMARY | 2025-09-16 09:46 | XMS_ITS | Encounter Summary ---
Author Organization [employer] Address [address] [place] [address] [address] [place] [address] Care Team Providers Care Snack Steward Name Role Phone Name, Charbel CARRILLO Primary Care Provider [phone] Мария Gudino PharmD Unavailable [phone] Robin Muniz RN Unavailable [phone] Leann Edgar Unavailable Reason for Visit * Reason Onset Date Comments Hospital Follow-up 09/29/2024 Encounter Details Date Type Department Care Team (Late st Contact Info) Description 09/29/2024 Telephone [facility] MEDICINE [address] [place] [address] Name, MD Charbel [address] [place], [place] [phone] Hospital Follow-up Social History Tobacco Use Types [...] from pt requesting a HDF appt. Hospital: [facility] Date of admission: 08/15/24 Discharge date: Diagnosed: stroke and eye symptoms , eye injection *Send message to [place] Clinical Care Coordinators documented in this encounter Plan of Treatment Upcoming Encounters Date Type Department Care Team (Late st Contact Info) Description 09/16/2025 11:00 AM EDT Office Visit [facility] MEDICINE [address] [place] [address] Name, MD Charbel [address] [place] [address] 12/16/2025 1:30 PM EST Telemedicine [facility] MEDICINE [address] [place] [address] Roz Le RN documented as of this encounter Goals Goal Patient Goal Type Associated Problems Recent Progress Patient-Stated? Author Record your blood pressure once per day Blood Pressure No Puia, Маиря, PharmD Blood Pressure < 140/90 Blood Pressure [...] documented as of this encounter Care Teams Snack Steward Relationship Specialty Start Date End Date Name, MD Charbel [address] [place] [address] PCP - General Family Medicine 02/26/16 Мария Gudino, PharmD [address] [place] [address] Pharmacist Internal Medicine 04/29/23 07/11/25 Robin Muniz, ARLINE [address] [place] [phone] Registered Nurse Family Medicine 04/22/25 08/11/25 Leann Edgar 04/22/25 [facility]/11/25 [facility] documented as of this encounter
--- OUTSIDE RECORDS SUMMARY | 2025-09-16 09:46 | XMS_ITS | Encounter Summary ---
Author Organization [employer] Address [address] [place] [address] 7t [place] [address] Care Team Providers Care Bolt Threader Name Role Phone Name, Charbel CARRILLO Primary Care Provider [phone] Мария Gudino PharmD Unavailable [phone] Robin Muniz RN Unavailable [phone] Leann Edgar Unavailable Reason for Visit * Reason Comments Med Refill Encounter Details Date Type Department Care Team (Late st Contact Info) Description 07/24/2024 Refill [facility] [address] [place], [place] [phone] Мария Gudino, PharmD [address] [place], [place] [phone] Essential hypertension; Type 2 diabetes mellitus with hyperglycemia, with long-term current use of insulin ([facility]) Social History Tobacco Use Types Packs/Day Years [...] Description 09/16/2025 11:00 AM EDT Office Visit [facility] [address] [place] [address] Name, MD Charbel [address] [place] [address] 12/16/2025 1:30 PM EST Telemedicine [facility] [address] [place] [address] [phone] Roz Le, ARLINE documented as of this encounter Goals Goal Patient Goal Type Associated Problems Recent Progress Patient-Stated? Author Record your blood pressure once per day Blood Pressure No Мария Gudino, Aleisha Blood Pressure < 140/90 Blood Pressure 130/90(2024 [...] with long-term current use of insulin (HCC) documented in this encounter Additional Health Concerns Assessment Noted Time PHQ-9 Depression Total Score: 0 03/22/20 1:45 PM EDT documented as of this encounter Care Teams Bolt Threader Relationship Specialty Start Date End Date Name, MD Charbel [address] [place] [address] PCP - General Family Medicine 02/26/16 Мария Gudino PharmD 230 [place] [address] Pharmacist Internal Medicine 04/29/23 07/11/25 Robin Muniz RN [address] [place] [address] Registered Nurse Family Medicine 04/22/25 08/11/25 Leann Edgar 04/22/25 08[facility]11[facility]25 [facility] documented as of this encounter
--- OUTSIDE RECORDS SUMMARY | 2025-09-16 09:46 | XMS_ITS | Encounter Summary ---
Author Organization [employer] Address [address] [place] [address] 7t [place] [address] Care Team Providers Care Curriculum Specialist Name Role Phone Name, Charbel CARRILLO Primary Care Provider [phone] Мария Gudino PharmD Unavailable [phone] Robin Muniz RN Unavailable [phone] Leann Edgar Unavailable Reason for Visit * Reason Comments Med Refill Encounter Details Date Type Department Care Team (Late st Contact Info) Description 04/16/2025 Refill [facility] 230 [place], [place] [phone] Name, MD Charbel 230 [place], [place] [phone] Social History Tobacco Use Types Packs/Day Years [...] Description 09/16/2025 11:00 AM EDT Office Visit [facility] [address] [place] [address] Name, MD Charbel [address] [place] [address] 12/16/2025 1:30 PM EST Telemedicine [facility] [address] [place] [address] Roz Le RN documented as of this encounter Goals Goal Patient Goal Type Associated Problems Recent Progress Patient-Stated? Author Record your blood pressure once per day Blood Pressure No Puia, Мария, PharmD Blood Pressure < 140/90 Blood Pressure 130/90(2024 3:47 PM EDT) No Puia Мария, PharmD Patient will adhere to medication [...] documented as of this encounter Care Teams Curriculum Specialist Relationship Specialty Start Date End Date Name, MD Charbel 230 [place] [address] PCP - General Family Medicine 02/26/16 Мария Gudino PharmD [address] [place] [address] Pharmacist Internal Medicine 04/29/23 07/11/25 Robin Muniz, ARLINE [address] [place] [address] Registered Nurse Family Medicine 04/22/25 08/11/25 Leann Edgar 04/22/25 08/11/25 [facility] 04/28/25 documented as of this encounter
--- OUTSIDE RECORDS SUMMARY | 2025-09-16 09:46 | XMS_ITS | Encounter Summary ---
Author Organization [employer] Address [address] [place] [address] 7t [place] [address] Care Team Providers Care Welt Cutter Name Role Phone Name, Charbel CARRILLO Primary Care Provider [phone] Мария Gudino PharmD Unavailable [phone] Robin Muniz RN Unavailable [phone] Leann Edgar Unavailable Reason for Visit * Reason Onset Date Comments Hospital Follow-up 09/15/2024 Encounter Details Date Type Department Care Team (Late st Contact Info) Description 09/15/2024 Telephone [facility] 230 [place] [address] Name, MD Charbel 230 [place], [place] [phone] Hospital Follow-up Social History Tobacco Use Types [...] from pt requesting a HDF appt. Hospital: [facility] Date of admission: 09/14/2024 Discharge date: 09/15/2024 Diagnosed: Visual changes , Bipolar disorder documented in this encounter Plan of Treatment Upcoming Encounters Date Type Department Care Team (Late st Contact Info) Description 09/16/2025 11:00 AM EDT Office Visit [facility] [address] [place] [address] Name, MD Charbel 230 [place] [address] 12/16/2025 1:30 PM EST Telemedicine [facility] 230 [place] [address] Roz Le RN documented as of this [...] documented as of this encounter Care Teams Welt Cutter Relationship Specialty Start Date End Date Name, MD Charbel [address] [place] [address] PCP - General Family Medicine 02/26/16 Мария Gudino, PharmD [address] [place] [address] Pharmacist Internal Medicine 04/29/23 07/11/25 Robin Muniz RN [address] [place] [address] Registered Nurse Family Medicine 04/22/25 08/11/25 Leann Edgar 04/22/25 08/11/25 [facility] documented as of this encounter
--- OUTSIDE RECORDS SUMMARY | 2025-09-16 09:46 | XMS_ITS | Encounter Summary ---
Author Organization [employer] Address [address] [place] [address] 7t [place] [address] Care Team Providers Care Counselor Aide Name Role Phone Name, Charbel CARRILLO Primary Care Provider [phone] Мария Gudino PharmD Unavailable [phone] Robin Muniz RN Unavailable [phone] Leann Edgar Unavailable Reason for Visit * Reason Comments Med Refill Encounter Details Date Type Department Care Team (Late st Contact Info) Description 09/16/2023 Refill [facility] 230 [place], [place] [phone] Name, MD Charbel 230 [place], [place] [phone] Social History Tobacco Use Types Packs/Day Years [...] 11:00 AM EDT Office Visit [facility] [address] [place] [address] Name, MD Charbel [address] [place] [address] 12/16/2025 1:30 PM EST Telemedicine [address] [address] Roz Le RN documented as of this [...] documented as of this encounter Care Teams Counselor Aide Relationship Specialty Start Date End Date Charbel Lyons MD [address] [place] [address] PCP - General Family Medicine 02/26/16 Puia, Мария, PharmD [address] [place] [address] Pharmacist Internal Medicine 04/29/23 07/11/25 Robin Muniz RN [address] [place] [address] Registered Nurse Family Medicine 04/22/25 08/11/25 Leann Edgar 04/22/25 08/11/25 [facility] 04/28/25 documented as of this encounter
--- OUTSIDE RECORDS SUMMARY | 2025-09-16 09:46 | XMS_ITS | Encounter Summary ---
Author Organization [employer] Address [address] [place] [address] 7t [place] [address] Care Team Providers Care Mail Deliverer Name Role Phone Name, Charbel CARRILLO Primary Care Provider [phone] Мария Gudino PharmD Unavailable [phone] Robin Muniz RN Unavailable [phone] Leann Edgar Unavailable Reason for Visit * Reason Comments Med Refill Encounter Details Date Type Department Care Team (Late st Contact Info) Description 09/16/2023 Refill [facility] 230 [place], [place] [phone] Name, MD Charbel 230 [place], [place] [phone] Social History Tobacco Use Types Packs/Day Years [...] Description 09/16/2025 11:00 AM EDT Office Visit [facility] [address] [place] [address] Name, MD Charbel [address] [place] [address] 12/16/2025 1:30 PM EST Telemedicine [address] [address] Roz Le RN documented as of this [...] documented as of this encounter Care Teams Mail Deliverer Relationship Specialty Start Date End Date Charbel Lyons MD [address] [place] [address] PCP - General Family Medicine 02/26/16 Puia, Мария, PharmD [address] [place] [address] Pharmacist Internal Medicine 04/29/23 07/11/25 Robin Muniz RN [address] [place] [address] Registered Nurse Family Medicine 04/22/25 08/11/25 Leann Edgar 04/22/25 08/11/25 [facility] 04/28/25 documented as of this encounter
--- OUTSIDE RECORDS SUMMARY | 2025-09-16 09:46 | XMS_ITS | Encounter Summary ---
Author Organization [employer] Address [address] [place] [address] 7 [place] [address] Care Team Providers Care Label Sewer Name Role Phone Name, Charbel CARRILLO Primary Care Provider Мария Gudino PharmD Unavailable [phone] Robin Muniz RN Unavailable [phone] Leann Edgar Unavailable Reason for Visit * Reason Onset Date Comments ER Follow-up 08/20/2023 Encounter Details Date Type Department Care Team (Late st Contact Info) Description 08/20/2023 Telephone [facility] 230 [place], [place] [phone] Name, MD Charbel 230 [place], [place] [phone] ER Follow-up Social History Tobacco Use Types [...] to LVM. * Telephone Encounter - Frannie Xu - 08/20/2023 11:35 AM EDT Patient calling to report ED visit on 08/19/23 at [facility]. Seen for fall. Patient advised will forward to team nurse for follow up. documented in this encounter Plan of Treatment Upcoming Encounters Date Type Department Care Team (Late st Contact Info) Description 09/16/2025 11:00 AM EDT Office Visit [facility] [address] [place] [address] Name, MD Charbel [address] [place] [address] 12/16/2025 1:30 PM EST Telemedicine [address] [address] Roz Le RN documented as of this [...] documented as of this encounter Care Teams Label Sewer Relationship Specialty Start Date End Date Charbel Lyons MD [address] [place] [address] PCP - General Family Medicine 02/26/16 Puia, Мария, PharmD [address] [place] [address] Pharmacist Internal Medicine 04/29/23 07/11/25 Robin Muniz RN [address] [place] [address] Registered Nurse Family Medicine 04/22/25 08/11/25 Leann Edgar 04/22/25 08/11/25 [facility] 04/28/25 documented as of this encounter
--- OUTSIDE RECORDS SUMMARY | 2025-09-16 09:46 | XMS_ITS | Encounter Summary ---
Author Organization [employer] Address [address] [place] [address] 7 [place] [address] Care Team Providers Care Dryer Operator Name Role Phone Name, Charbel CARRILLO Primary Care Provider Мария Gudino PharmD Unavailable [phone] Robin Muniz RN Unavailable [phone] Leann Edgar Unavailable Reason for Visit * Reason Onset Date Comments Error 12/08/2023 Encounter Details Date Type Department Care Team (Late st Contact Info) Description 12/08/2023 Telephone [facility] 230 [place] [address] Name, MD Charbel 230 [place], [place] [phone] Error Social History Tobacco Use Types Packs/Day [...] Description 09/16/2025 11:00 AM EDT Office Visit [facility] [address] [place] [address] Name, MD Charbel [address] [place] [address] 12/16/2025 1:30 PM EST Telemedicine [facility] [address] [place] [address] Roz Le, ARLINE documented as of this [...] documented as of this encounter Care Teams Dryer Operator Relationship Specialty Start Date End Date Charbel Lyons MD [address] [place] [address] PCP - General Family Medicine 02/26/16 Puia, Мария, PharmD 230 [place] [address] Pharmacist Internal Medicine 04/29/23 07/11/25 Robin Muniz, ARLINE [address] [place] [address] Registered Nurse Family Medicine 04/22/25 08/11/25 Leann Edgar 04/22/25 08/11/25 [facility] documented as of this encounter
--- OUTSIDE RECORDS SUMMARY | 2025-09-16 09:46 | XMS_ITS | Encounter Summary ---
Author Organization [employer] Address [address] [place] [address] 7t [place] [address] Care Team Providers Care Vegetable Specker Name Role Phone Name, Charbel CARRILLO Primary Care Provider [phone] Мария Gudino PharmD Unavailable [phone] Robin Muniz RN Unavailable [phone] Leann Edgar Unavailable Reason for Visit * Reason Comments Med Refill Encounter Details Date Type Department Care Team (Late st Contact Info) Description 02/10/2023 Refill [facility] 230 [place], [place] [phone] Name, MD Charbel 230 [place], [place] [phone] Social History Tobacco Use Types Packs/Day Years [...] Description 09/16/2025 11:00 AM EDT Office Visit [address] [address] Name, MD Charbel [address] [place] [address] 12/16/2025 1:30 PM EST Telemedicine [address] [address] Roz Le, ARLINE documented as of this encounter Visit Diagnoses Not on filedocumented in this encounter Additional Health Concerns Assessment Noted Time PHQ-9 Depression Total Score: 0 10/23/20 3:25 PM EST documented as of this encounter Care Teams Vegetable Specker Relationship Specialty Start Date End Date Name, MD Charbel [address] [place] [address] PCP - General Family Medicine 02/26/16 Мария Gudino PharmD [address] [place] [address] Pharmacist Internal Medicine 04/29/23 07/11/25 Robin Muniz, ARLINE [address] [place] [address] Registered Nurse Family Medicine 04/22/25 08/11/25 Leann Edgar 04/22/25 08/11/25 [facility] documented as of this encounter
--- OUTSIDE RECORDS SUMMARY | 2025-09-16 09:46 | XMS_ITS | Clinical Summary ---
Author Organization [facility] Address [address] [place] [address] Phone Care Team Providers Care Derrick Boat Runner Name Role Phone Unavailable Primary Care Provider Unavailabl e Allergies Active Allergy Reactions Criticality Noted Date Comments Acetaminophen Other (see comments) 10/26/2018 Unable to take due to liver issues Iodinated Contrast Media Other (see comments) 0 08/01/2021 Ibuprofen Other (see comments) 10/26/2018 Due to [place] Iodine Other (see comments) High 07/24/2018 Latex Hives,Itching,Other (see comments) 09/09/2006 Mangifera Indica Swelling 02/24/2015 [place] Flavoring Agent (Non-Screening) Other (see comments) 05/30/2009 Metformin Other (see comments) 08/01/2021 Nsaids Other (see comments) 08/01/2021 Passion Fruit Flavoring Agent (Non-Screening) Other (see comments) 05/30/2009 Penicillins Hives,Itching,Other (see comments),Swelling 02/24/2015 Shellfish Protein-Containing Drug Products Swelling 02/24/2015 Medications Insulin Lispro, 1 [...] Used to be seen for PM at [facility], got injections, not better, ref to [...] on 09 January 2016 14:38 Encounter info: [id number], [place] [facility] 01/08/2016 - 01/15/2016 * Final Report * Reason For Exam rt shoulder pain RCT;rt shoulder pain RCT RESULT: MRI Joint Ext Upper W/O Contrast Right [facility] VISIT NUMBER :[id number] Patient Name : Sade Izaguirre Date of : 1970 Date of Exam : 01/08/2016 Referring Physician : GINA CROFT [address], Attn: [place] [address] Exam : MR - SHOULDER (C-) CPT 59309 - RIGHT Room Description : [facility] 2 1.5 Technique : Ax PD [...] 08/21/2022 Chronic kidney disease, stage 2 (mild) 2 Type 2 diabetes mellitus wit h diabetic [...] 08/01/2021 08/01/2021 Overview (08/01/2021): MRI done at [place] 11.15.14 Pain of shoulder region 08/01/202107/18 Overview (08/01/2021): Used to be seen for PM at [facility], got injections, not better, ref to [...] on 09 January 2016 14:38 Encounter info: [id number], [place] [facility] [place], 01/08/2016 - 01/15/2016 * Final Report * Reason For Exam rt shoulder pain RCT;rt shoulder pain RCT RESULT: MRI Joint Ext Upper W/O Contrast Right [facility] VISIT NUMBER :[id number] Patient Name : Sade Izaguirre Date of : 1970 Date of Exam : 01/08/2016 Referring Physician : GINA CROFT [address], Attn: [place] [address] Exam : MR - SHOULDER (C-) CPT [id number] - RIGHT Room Description : [facility] 2 1.5 Technique : Ax PD [...] Overview (08/17/2024): BILATERAL MAMMOGRAM SCREENING DONE AT [facility] RESULTS WAS SENT [...] Discontinued 04/01/2023, 05/30/2009 Insurance Medicaid [place] Medicaid [place]
--- OUTSIDE RECORDS SUMMARY | 2025-09-16 09:46 | XMS_ITS | Encounter Summary ---
Author Organization [employer] Address [address] [place] [address] 7 [place] [address] Care Team Providers Care Technical Training Instructor Name Role Phone Name, Charbel CARRILLO Primary Care Provider [phone] Мария Gudino PharmD Unavailable [phone] Robin Muniz RN Unavailable [phone] Leann Edgar Unavailable Reason for Visit * Reason Onset Date Comments Appointment Request 09/22/2023 Encounter Details Date Type Department Care Team (Late st Contact Info) Description 09/22/2023 Telephone [facility] 230 [place] [address] Name, MD Charbel 230 [place], [place] [phone] Appointment Request Social History Tobacco Use Types [...] @ 2:15 pm (NOTES : Claim # [id number]- [place] [facility] -09/05/23- Went to [facility] ED - Xray negative but pt. wants MRI ) Pt states she has same day appt with Her Orthopedic surgeon and is requesting to see if provider has anything earlier or for later time. Please contact pt at [phone] documented in this encounter Plan of Treatment Upcoming Encounters Date Type Department Care Team (Late st Contact Info) Description 09/16/2025 11:00 AM EDT Office Visit [facility] [address] [place] [address] [phone] Name, MD Charbel [address] [place] [address] 12/16/2025 1:30 PM EST Telemedicine [facility] [address] [place] [address] Roz Le, RN documented as of this [...] Date End Date Name, MD Charbel [address] [place] [address] PCP - General Family Medicine 02/26/16 Мария Gudino, PharmD [address] [place] [address] Pharmacist Internal Medicine 04/29/23 07/11/25 Robin Muniz, ARLINE [address] [place] [address] Registered Nurse Family Medicine 04/22/25 08/11/25 Leann Edgar 04/22/25 08/11/25 [facility] documented as of this encounter
--- OUTSIDE RECORDS SUMMARY | 2025-09-16 09:46 | XMS_ITS | Encounter Summary ---
Author Organization [employer] Address [address] [place] [address] 7 [place] [address] Care Team Providers Care English Language Learner Teacher Name Role Phone Name, Charbel CARRILLO Primary Care Provider [phone] Мария Gudino PharmD Unavailable [phone] Robin Muniz RN Unavailable [phone] Leann Edgar Unavailable Encounter Details Date Type Department Care Team (Late st Contact Info) Description 07/11/2025 Orders Only [facility] 230 [place] [address] Provider, MD Fantasma Social History Tobacco Use [...] the past 12 months, has t he [employer], [employer], oil or water [employer] threatened to shut off services in your [...] Description 09/16/2025 11:00 AM EDT Office Visit [address] [address] Name, MD Charbel [address] [place] [address] 12/16/2025 1:30 PM EST Telemedicine [address] [address] Roz Le, ARLINE documented as of this [...] documented as of this encounter Care Teams English Language Learner Teacher Relationship Specialty Start Date End Date Name, MD Charbel 230 [place] [address] PCP - General Family Medicine 02/26/16 Мария Gudino PharmD 230 [place] [address] Pharmacist Internal Medicine 04/29/23 07/11/25 Robin Muniz RN [address] [place] [address] Registered Nurse Family Medicine 04/22/25 08/11/25 Leann Edgar 04/22/25 08/11/25 [facility] 04/28/25 documented as of this encounter
--- OUTSIDE RECORDS SUMMARY | 2025-09-16 09:46 | XMS_ITS | Encounter Summary ---
Author Organization [employer] Address [address] [facility] 7t [place] [address] Care Team Providers Care Systems Project Manager Name Role Phone Name, Charbel CARRILLO Primary Care Provider [phone] Мария Gudino PharmD Unavailable [phone] Robin Muniz RN Unavailable [phone] Leann Edgar Unavailable Encounter Details Date Type Department Care Team (Late st Contact Info) Description 09/24/2023 Abstract [facility] 230 [place], [place] [phone] Name, MD Charbel 230 [place], [place] [phone] Social History Tobacco Use Types Packs/Day Years [...] Description 09/16/2025 11:00 AM EDT Office Visit [facility] [address] [place] [address] Name, MD Charbel [address] [place] [address] 12/16/2025 1:30 PM EST Telemedicine [address] [phone] Roz Le RN documented as of this [...] as of this encounter Care Teams Systems Project Manager Relationship Specialty Start Date End Date Charbel Lyons MD [address] [place] [address] [phone] PCP - General Family Medicine 02/26/16 Puia, Мария, PharmD [address] [place] [address] Pharmacist Internal Medicine 04/29/23 07/11/25 Robin Muniz RN [address] [place] [address] [place] [address] Registered Nurse Family Medicine 04/22/25 08/11/25 Leann Edgar 04/22/25 08/11/25 [facility] 04/28/25 documented as of this encounter
== END 2025-09-16 09:33 | disposition home or self-care (01) ==
PROVIDERS: PCP Internal Medicine Geriatric Medicine; Visit Provider Hospitalist
DX: J45.51 Severe persistent asthma with (acute) exacerbation (principal); J98.4 Other disorders of lung; G47.33 Obstructive sleep apnea (adult) (pediatric); M35.01 Sjogren syndrome with keratoconjunctivitis; J39.8 Other specified diseases of upper respiratory tract; J98.11 Atelectasis; K44.9 Diaphragmatic hernia without obstruction or gangrene; K22.2 Esophageal obstruction; K22.4 Dyskinesia of esophagus
CPT/HCPCS: 99214

== ENCOUNTER → 2025-09-16 09:03 | Outpatient (BNVA) | payer MEDICAID, SELFPAY | PROVIDERS: PCP Internal Medicine Geriatric Medicine; Visit Provider Hospitalist | DX: J45.51 Severe persistent asthma with (acute) exacerbation (principal); J98.4 Other disorders of lung; J39.8 Other specified diseases of upper respiratory tract; M35.01 Sjogren syndrome with keratoconjunctivitis; J98.11 Atelectasis; G47.33 Obstructive sleep apnea (adult) (pediatric); K44.9 Diaphragmatic hernia without obstruction or gangrene; K22.2 Esophageal obstruction; K22.4 Dyskinesia of esophagus | CPT/HCPCS: 99212 ==